=== PATIENT | female | born 2000 | race Caucasian/White ===

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

== ENCOUNTER 2021-04-13 09:00 | Outpatient (RCR) | payer BC, SELFPAY ==
[2020-09-12 14:26] VITALS: BMI 32.0
--- NOTE | 2020-10-05 12:20 | HP.PTEVAL_ITS ---
Patient's Visit Information FABIAN MENJIVAR is a 20 year old F referred to Physical Therapy by MILTON ORDONEZ with a diagnosis of Right ACL and Meniscal Repair. Date of Evaluation: 10/05/20 Physical Therapist: Priyanka Key DPT - Visit Plan Frequency: 3x /Week Duration: 4 Weeks Plan: ACL and meniscal repair 10/02/2020. HEP Given IE: seated heel slide, quad set and weight shift - Subjective Torn September 02 senior night- lax- non contact- Right ACL and meniscal tear. Surgery was 10/02/2020- she is weight bearing as tolerated at this point but is still on crutches. She is wearing a TROM brace that is locked in extension. MD did not want a brace on her leg but pt wanted one. She has pain on the medial and lateral aspect. Worst: 11/04 Today: 09/04 Best: 07/05 Agg: moving Eases: resting- ice 20 min on/10 min off all day. Describes the pain as throbbing and sinking nails into her knee. No radiating pain- Does have N/T in the toes- they are driving her crazy. Wants to get back to work- standing for the entire day- would like to go back if possible. Very active person. Prior to surgery fully I with ADL's- graduated from [employer]- plans to go to [employer] to play lax- Spring sport at [employer]. Surgery Dr. Gutierrez at which is the team MD with - heads up Mid November. Sleep: no problems- but does wake up and night- sleeps in brace PMHx: left ACL 2017, celiac disease, hiatal hernia. Meds: escitalopf, dicyclomine - Objective Posture: FH, RS- can correct but is unable to maintain. Gait: antalgic- decreased weight through the right LE with axillary crutches. Stairs: asc/desc 8 non recip. SLS: is able to weight shift but very hesitant. HR/TR: able with weight shifted to the left LE. Transfers: requires mod A for all transfers from supine to sit and sit to supine. ROM: 0-40 degrees- very anxious and reports pain/discomfort with flexion. Strength: not tested due to fear- will attempt next visit- quad set is visible but faint. Girth: Patella: 41 cm, 6 above: 56.5cm, 6 below: 34.5 cm. Sensation: normal to gross touch bilateral. Observation: mom attempted to remove steri strips-PT replaced them in clinic-. Fabian was very nervous and anxious and cried throughout the session- father present - Goals Goal 1:: Patient will be I with HEP and progression Goal Time Frame: 12-16 Weeks Goal 2:: Patient will demo equal girth 6 above patella to non op LE Goal Time Frame: 12-16 Weeks Goal 3:: Patient will ambulate >300 feet with a normalized gait pattern Goal Time Frame: 12-16 Weeks Goal 4:: Patient will demo 0-130 degrees of ROM in the right knee Goal Time Frame: 12-16 Weeks - Rehabilitation Potential Physical Therapy Diagnosis: Patient presents with hypomobility- she has decreased ROM, strength, proprioception, flex and muscular endurance leading to abnormal gait pattern and decreased ability to perform ADL's. Rehabilitation Potential: Fair - Anticipated Interventions Patient/Client Instruction: Educate patient on: Benefits of Fitness Program Therapeutic Exercise to Include: Strength training, Endurance training, Balance training, Coordination, Agility training, Body mechanics, Postural training, Flexibilty training, Gait and locomotor training, Neuromotor development, Passive ROM, Active ROM, Dynamic Lumbar Stabilization, Scapular Strength/Stabilization Functional Training to Include: Gait training Manual Therapy Techniques to Include: Soft tissue mobilization TENS: Yes Cryotherapy (ice pack, ice massage): Yes Thermo therapy (hot pack): Yes Ultrasound (thermal/non thermal): No Pelvic traction supine: Yes Thank you for the opportunity to evaluate your patient. For Medicare and Medicare HMO plans, please review the plan of care and approve it. It will need to be FAXED BACK to us at [phone] for Medicare purposes. For Medicare only, by signing this I certify the plan of care. Please let me know if there are questions or concerns regarding this plan of care. Physician Signature: Date:
--- NOTE | 2020-11-20 12:56 | HP.PTREVAL ---
MILTON ORDONEZ, It has been my pleasure to treat FABIAN MENJIVAR over the last 16 visits for Right ACL and Meniscal Repair. Please see the progress note below for an update on the physical therapy plan of care! Subjective: Pt. reports no new issues. She walks in without AD, she still has marked lack of TKE during stance phase of gait. She reports being HEP compliant with stretching at home. Objective/Function: PROM: PRE TREATMENT: 0-6-105, post stretchin-2-110deg. Pt. is still limited with end range extension and flexion. She has tightness and posterior knee pain with end range extension. Her extension does improve with stretching, but does not achieve full TKE. Pt. is completing strengthening exercises well without limitations. I would like her to achieve TKE to allow for improved gait pattern. She tolerated stretching with PT over pressure, but difficulty completing on own. P. may benefit from dynamic splinting to increase prolonged stretch. Due to her lack on TKE her gait is altered effecting her functional mobility. Plan Plan: COnt. to work on ROM and strength. Focus on TKE and increasing knee flexion. Goals Goal 1:: Patient will be I with HEP and progression Goal Time Frame: 12-16 Weeks Goal Progress: Progressing Goal 2:: Patient will demo equal girth 6 above patella to non op LE Goal Time Frame: 12-16 Weeks Goal Progress: Progressing Goal 3:: Patient will ambulate >300 feet with a normalized gait pattern Goal Time Frame: 12-16 Weeks Goal Progress: Progressing Goal 4:: Patient will demo 0-130 degrees of ROM in the right knee Goal Time Frame: 12-16 Weeks Goal Progress: Progressing Anticipated Interventions Patient/Client Instruction: Educate patient on: Benefits of Fitness Program Therapeutic Exercise to Include: Strength training, Endurance training, Balance training, Coordination, Agility training, Body mechanics, Postural training, Flexibilty training, Gait and locomotor training, Neuromotor development, Passive ROM, Active ROM, Dynamic Lumbar Stabilization, Scapular Strength/Stabilization Functional Training to Include: Gait training Manual Therapy Techniques to Include: Soft tissue mobilization TENS: Yes Cryotherapy (ice pack, ice massage): Yes Thermo therapy (hot pack): Yes Ultrasound (thermal/non thermal): No Pelvic traction supine: Yes Please do not hesitate to contact me at [phone] by phone or if you have questions or concerns regarding this new plan of care! Sincerely, HAWK RomeroT
--- NOTE | 2020-12-07 11:24 | HP.PTREVAL_ITS ---
MILTON ORDONEZ, It has been my pleasure to treat FABIAN MENJIVAR over the last 22 visits for Right ACL and Meniscal Repair. Please see the progress note below for an update on the physical therapy plan of care! Subjective: Patient reports today is her last day before she goes to school. 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 Her hips/buttocks are sore from last session. Has to stand to shake lemonades all night Objective/Function: ROM: 0-130 *prone with stretch strap. Girth: Patella: 39cm 6 above:56.5. Strength: Flexion: Left: 51,50 Right: 32, 30 11 Extension: Left: 59,61 Right:38, 40 Plan Plan: 12/07/20: Hold- going to college- will return on breaks for re-assessments- encouraged to call if questions. COnt. to work on ROM and strength. Focus on TKE and increasing knee flexion. Balance/Gait/Functional tests - Balance/Special Test Scores Lower Extremity Functional Score: 53 Goals Goal 1:: Patient will be I with HEP and progression Goal Time Frame: 12-16 Weeks Goal Progress: Goal Met Goal 2:: Patient will demo equal girth 6 above patella to non op LE Goal Time Frame: 12-16 Weeks Goal Progress: Progressing Goal 3:: Patient will ambulate >300 feet with a normalized gait pattern Goal Time Frame: 12-16 Weeks Goal Progress: Goal Met Goal 4:: Patient will demo 0-130 degrees of ROM in the right knee Goal Time Frame: 12-16 Weeks Goal Progress: Goal Met Anticipated Interventions Patient/Client Instruction: Educate patient on: Benefits of Fitness Program Therapeutic Exercise to Include: Strength training, Endurance training, Balance training, Coordination, Agility training, Body mechanics, Postural training, Flexibilty training, Gait and locomotor training, Neuromotor development, Passive ROM, Active ROM, Dynamic Lumbar Stabilization, Scapular Strength/Stab ilization Functional Training to Include: Gait training Manual Therapy Techniques to Include: Soft tissue mobilization TENS: Yes Cryotherapy (ice pack, ice massage): Yes Thermo therapy (hot pack): Yes Ultrasound (thermal/non thermal): No Pelvic traction supine: Yes Please do not hesitate to contact me at [phone] by phone or if you have questions or concerns regarding this new plan of care! Sincerely, HAWK SuárezT
--- NOTE | 2021-04-09 10:02 | HP.PTREVAL ---
MILTON ORDONEZ, It has been my pleasure to treat FABIAN MENJIVAR over the last 23 visits for Right ACL and Meniscal Repair. Please see the progress note below for an update on the physical therapy plan of care! Subjective: Pt. is back from school. She has been doing rehab at school without issues. Pt. is having some anterior knee pain with running. She is running/jog/walk upto 10 minutes. Pain the next day. Objective/Function: ROM: R kne: 0-0-140deg. MMT: RLE: knee: ext: 53.9#, flexion 41.1#; hip: flexion 42.3#, ext 84.1#, abd 71.5#. LLE: knee: ext 55.3#, flexion 44.3#; hip: flexion 44.1#, ext 66.1#, abd 75.2#. squat: Pt. has slight valgus posture, with increased lateral wt. shift to L side. She is able to correct with VC/TCing. jogging: Pt. has a slightly antalgic running pattern during R stance phase. She C/O increased patellar like pain, deep soreness.. Star excursion: fwrd- 1.5in difference, 6 inch difference laterally, across 7 inch difference. Pt. has tenderness at patellar tendon on R side. Plan Plan: Pt. to be seen x2-3 per week while here in town. Focus on SL stability, strength. She appears to have some patellar tendonitis. She has some anterior knee pain with eccentric lowering, absorbing landing with jumping. Balance/Gait/Functional tests - Balance/Special Test Scores Lower Extremity Functional Score: 53 Goals Goal 1:: Patient will be I with HEP and progression Goal Time Frame: 12-16 Weeks Goal Progress: Goal Met Goal 2:: Patient will demo equal girth 6 above patella to non op LE Goal Time Frame: 12-16 Weeks Goal Progress: Goal Met Goal 3:: Patient will ambulate >300 feet with a normalized gait pattern Goal Time Frame: 12-16 Weeks Goal Progress: Goal Met Goal 4:: Patient will demo 0-130 degrees of ROM in the right knee Goal Time Frame: 12-16 Weeks Goal Progress: Goal Met Goal 5:: LTG: Pt. to run without increase in symptoms with normal pattern. Goal Progress: Progressing Goal 6:: LTG: pt. to have normal squat mechanics without increase in R knee pain Goal Progress: Progressing Anticipated Interventions Patient/Client Instruction: Educate patient on: Benefits of Fitness Program Therapeutic Exercise to Include: Strength training, Endurance training, Balance training, Coordination, Agility training, Body mechanics, Postural training, Flexibilty training, Gait and locomotor training, Neuromotor development, Passive ROM, Active ROM, Dynamic Lumbar Stabilization, Scapular Strength/Stabilization Functional Training to Include: Gait training Manual Therapy Techniques to Include: Soft tissue mobilization TENS: Yes Cryotherapy (ice pack, ice massage): Yes Thermo therapy (hot pack): Yes Ultrasound (thermal/non thermal): No Pelvic traction supine: Yes Please do not hesitate to contact me at [phone] by phone or if you have questions or concerns regarding this new plan of care! Sincerely, HAWK RomeroT
--- NOTE | 2021-06-06 13:20 | HP.PT.NRP ---
FABIAN MENJIVAR was seen in my office for initial evaluation on 10/05/20. The following Plan of Care was established for this patient: Initial Frequency: 3x /Week Initial Duration: 4 Weeks Patient/Client Instruction: Educate patient on: Benefits of Fitness Program Therapeutic Exercise to Include: Strength training, Endurance training, Balance training, Coordination, Agility training, Body mechanics, Postural training, Flexibilty training, Gait and locomotor training, Neuromotor development, Passive ROM, Active ROM, Dynamic Lumbar Stabilization, Scapular Strength/Stabilization Functional Training to Include: Gait training Manual Therapy Techniques to Include: Soft tissue mobilization TENS: Yes Cryotherapy (ice pack, ice massage): Yes Thermo therapy (hot pack): Yes Ultrasound (thermal/non thermal): No Pelvic traction supine: Yes This patient was last seen in our office . Pertinent comments regarding their Physical therapy will appear below: Patient is appropriate to be d/c and return to MD for further evaluation At this point I will be discontinuing this patient from physical therapy. I would be happy to see this patient again in the future if found appropriate by the physician. Thank you! Priyanka Key, ALPES[facility] Balance/Gait/Functional tests - Balance/Special Test Scores Lower Extremity Functional Score: 53
== END 2021-04-13 19:00 | disposition home or self-care (01) ==
LOC: PT 09:00
PROVIDERS: PCP Pediatrics; Visit Provider Physician Assistant
DX: S83.511D Sprain of anterior cruciate ligament of right knee, subsequent encounter (principal)
CPT/HCPCS: 97016; 97110; 97116; 97162; 97164

== ENCOUNTER 2022-11-27 10:40 | Emergency (ER) | payer BC, SELFPAY ==
[2022-11-27 10:41] VITALS: BP 156/101; PULSE 109; RESP 16; TEMP 36.4; O2SAT 100; BMI 32.9
[2022-11-27 12:00] VITALS: RESP 18
[2022-11-27 12:26] LABS: Bacteria 0 SEEN /hpf (None Seen); Color, Urine Yellow (Yellow); Glucose, Dipstick Normal (Normal); Ketone-Dipstick Negative (Negative); Leukocyte Esterase-Dipstick 25 /ul (Negative); Mucous, Urine 0 SEEN /hpf (<or=2+); Nitrite-Dipstick Negative (Negative); Occult Blood-Urine Negative /ul (Negative); Protein-Dipstick Negative (Negative); Red Blood Cells-Urine 0 SEEN /hpf (0-5); Urine Bilirubin Dipstick Negative (Negative); Urine Clarity Clear (Clear); Urine Urobilinogen Normal (Normal); Urine pH 6.5 (5.0 - 8.0)
[2022-11-27 12:28] LABS: Absolute Lymphocyte Count 2.35 X10^3/uL (0.83-4.51); Absolute Neutrophil Count 7.4 X10^3/uL (2.0-7.7); Basophil# 0.07 X10^3/uL; Basophil% 0.7 % (0-1); Eosinophil# 0.09 X10^3/uL; Eosinophils% 0.9 % (0-5); Hematocrit 38.9 % (37-47); Lymphocyte # 2.35 X10^3/ul (0.83-4.51); Lymphocyte % 22.3 % (19-41); Mean Corp Hgb Conc 33.4 g/dL (32-36); Mean Corpuscular Hgb 30.4 pg (27.0-32.0); Mean Corpuscular Volume 90.9 fL (81-99); Monocyte# 0.61 X10^3/uL; Monocyte% 5.8 % (0-10); NRBC Flagged by Analyzer 0 % (0-5); Platelet Count 418 K/mm3 (150-450); RBC Distribution Width CV 12.8 % (11.6-14.6); RBC Distribution Width SD 41.7 fl (35.1-43.9); Red Blood Count 4.28 M/mm3 (4.2-5.4); White Blood Count 10.6 K/mm3 (4.4-11.0)
[2022-11-27 12:37] LABS: Squamous Epithelial Cells - UA 0-5 SEEN /hpf (5-10); White Blood Cells 0-5 SEEN /hpf (0-5)
[2022-11-27 12:39] LABS: ALB/GLOB Ratio 0.9 RATIO (0.9-2.4); AST(SGOT) 15 U/L (15-37); Alanine Aminotransfer ALT/SGPT 23 U/L (13-56); Albumin, Serum 3.7 g/dL (3.2-5.0); Alkaline Phosphatase 31 U/L (45-117); Anion Gap 6 (5-15); BUN 7 mg/dL (7-18); Calcium,Total 9.6 mg/dL (8.5-10.1); Chloride 108 mmol/L (98-107); EST Glomerular Filtration Rate 112 mL/min (>60); Est Glom Filt Rate - Afr Amer 136 mL/min (>60); Estimated Creatinine Clearance 100.55 ml/min; Globulin 4.3 g/dL (2.2-4.2); Glucose 86 mg/dL (74-106); Potassium 4.3 mmol/L (3.5-5.1); Sodium Level 139 mmol/L (136-145)
[2022-11-27 12:47] LABS: Internal QC Validated? YES +Cl - CLEAR BKGD; Pregnancy, Serum, hCG Quali. NEGATIVE Negative
[2022-11-27 12:55] LABS: Alcohol, Blood (Medical)-Serum < 3.0 mg/dL
[2022-11-27 13:00] VITALS: RESP 18
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
[2022-11-27 13:32] LABS: Amphetamine Urine VISTA NEGATIVE (<1000 ng/mL); Barbiturate Urine VISTA NEGATIVE (< 200 ng/mL); Benzodiazepine Urine VISTA NEGATIVE (< 200 ng/mL); Cocaine Urine VISTA NEGATIVE (< 300 ng/mL); Ecstacy Urine VISTA NEGATIVE (< 500 ng/mL); Methadone Urine VISTA NEGATIVE (< 300 ng/mL); PCP Urine VISTA NEGATIVE (< 25 ng/mL); THC Urine VISTA POSITIVE (< 50 ng/mL); Vista UDS pH Range 6
--- NOTE | 2022-11-27 13:59 | EX.ED.VIS.PS ---
HPI HPI - Psych History of Present Illness Chief Complaint: Suicidal Informant: patient Onset/Context/Timing Onset: Weeks (2-3) Context: Gradual Onset Timing: Waxes and wanes Worsened by: - (Stress) Relieved by: Nothing Associated Symptoms Associated Symptoms - Psych: Positive for Depressed; Negative for Suicidal Thoughts Narrative Narrative: Patient presents with depression and suicidal thoughts that have been getting worse over the past 2 to 3 weeks. Patient states she is under a lot of stress with starting back to school and trying to find a job. Patient states that she feels as though she would just be better off . Patient denies any definite plan for suicide. Patient states her symptoms have gradually gotten worse over the past 2 to 3 weeks. Patient admits to some nausea and vomiting. Patient denies any fevers or chills. Patient denies any chest pain or shortness of breath. [facility] Medical History Anxiety and depression Brain surgery within last 3 months Celiac disease Home Medications drospirenone 3 mg-ethinyl estradiol 0.02 mg tablet (Kristal (28)) 1 tab PO DAILY 09/02/20 [History Last Taken Unknown] dicyclomine 10 mg capsule 10 mg PO DAILY PRN celiac 09/05/20 [History Last Taken Unknown] aripiprazole 5 mg tablet mg PO DAILY 11/27/22 [History Last Taken Unknown] escitalopram oxalate 10 mg tablet (Lexapro) 10 mg PO DAILY 11/27/22 [History Last Taken Unknown] fluoxetine 10 mg capsule mg PO DAILY 11/27/22 [History Last Taken Unknown] Allergy/AdvReac Type Severity Reaction Status Date / Time No Known Allergies Allergy Verified 11/27/22 10:43 Social History Smoking Status: Never smoker ROS ROS ED Constitutional Constitutional ED: Denies chills or fever(s) Eyes Eyes: Denies blurry vision or change in vision ENT ENT ED: Denies rhinorrhea or sore throat Cardiovascular Cardiovascular: Denies chest pain or palpitations Respiratory/Chest Respiratory/Chest: Denies cough or dyspnea Gastrointestinal Gastrointestinal: Reports nausea and vomiting Genitourinary Genitourinary ED: Denies dysuria or hematuria Musculoskeletal Musculoskeletal: Denies back pain or neck pain Integumentary Denies abscess or rash Neurologic Neurologic: Denies headache(s) or weakness Psychiatric Psychiatric: Reports depression Allergic/Immunologic Allergic/Immunologic ED: Denies mouth swelling or urticaria EXAM Physical Exam Const Vital Signs: 11/27/22 10:41 11/27/22 12:00 11/27/22 13:00 Temperature 97.5 F L Temperature Source Temporal Pulse Rate 109 H Respiratory Rate 16 18 18 Blood Pressure 156/101 H Blood Pressure Mean 119 Pulse Ox 100 Oxygen Delivery Method Room Air Positive well nourished and well developed General Appearance ED: well developed and NAD HEENT Reports moist mucous membranes Neck supple and no JVD Resp normal respiratory effort and clear to auscultation bilaterally Cardio regular rate, regular rhythm and no murmurs GI normal to inspection, nondistended, normoactive bowel sounds and non-tender Palpation: soft Extremity normal to inspection General Extremety ED: Negative for edema or tenderness General Extremity: Negative for edema Neuro oriented x3, CN's II-XII intact bilaterally and no sensory deficits noted Sensorium / Orientation: alert Motor Exam: strength 5/5 throughout Psych mental status grossly normal Attitude: calm Activity / Motor Behavior: appropriate eye contact Mood & Affect: depressed Thought Content: No suicidality and No homicidality Attention / Concentration: attention grossly intact Skin no rashes or lesions noted MDM MDM MDM Narrative Medical decision making narrative: Differential diagnosis includes depression, anxiety, and stress. Medical screening labs will be obtained. CBC will be obtained to assess for leukocytosis and anemia. Comprehensive metabolic profile will be obtained to assess for electrolyte abnormality, renal function, and hepatic function. Serum hCG will be obtained to assess for . Urinalysis will be obtained to assess for urinary tract infection. Serum alcohol level will be obtained to assess for alcohol intoxication. Urine tox screen will be obtained to assess for drug abuse. Lab Data Attestation: I reviewed the patient's lab results. Lab results narrative: CBC was reviewed and was within normal limits. Comprehensive metabolic profile was reviewed and was normal. Serum hCG was reviewed and was negative. Urinalysis was reviewed. There is no evidence of urinary tract infection or hematuria. Urine tox screen was reviewed and was positive for cannabinoids. Serum alcohol level was reviewed and was negative. Labs: Laboratory Results - last 24 hr 11/27/22 11/27/22 11/27/22 10:00 11:04 12:14 WBC 10.6 RBC 4.28 Hgb 13.0 Hct 38.9 MCV 90.9 MCH 30.4 MCHC 33.4 RDW Std Deviation 41.7 RDW Coeff of Tree 12.8 Plt Count 418 MPV 9.0 Immature Gran % (Auto) 0.300 Neut % (Auto) 70.0 Lymph % (Auto) 22.3 [place] % (Auto) 5.8 Eos % (Auto) 0.9 Baso % (Auto) 0.7 Absolute Neuts (auto) 7.4 Absolute Lymphs (auto) 2.35 Nucleated RBC % 0 Sodium 139 Potassium 4.3 Chloride 108 H Carbon Dioxide 25.0 Anion Gap 6 BUN 7 Creatinine 0.70 Estim Creat Clear Calc 100.55 Est GFR (MDRD) Af Amer 136 Est GFR (MDRD) Non-Af 112 BUN/Creatinine Ratio 10.0 Glucose 86 Calcium 9.6 Total Bilirubin 0.30 AST 15 ALT 23 Alkaline Phosphatase 31 L Total Protein 8.0 Albumin 3.7 Globulin 4.3 H Albumin/Globulin Ratio 0.9 Serum , Qual NEGATIVE Urine Color Yellow Urine Clarity Clear Urine pH 6.5 Ur Specific [place] 1.010 Urine Protein Negative Urine Glucose (UA) Normal Urine Ketones Negative Urine Occult Blood Negative Urine Nitrite Negative Urine Bilirubin Negative Urine Urobilinogen Normal Ur Leukocyte Esterase 25 H Urine RBC 0 SEEN Urine WBC 0-5 SEEN Ur Squamous Epith Cells 0-5 SEEN Urine Bacteria 0 SEEN Urine Mucus 0 SEEN Urine Opiates Screen NEGATIVE Urine Methadone Screen NEGATIVE Ur Barbiturates Screen NEGATIVE Ur Phencyclidine Scrn NEGATIVE Ur Amphetamines Screen NEGATIVE MDMA (Ecstasy) Screen NEGATIVE U Benzodiazepines Scrn NEGATIVE Urine Cocaine Screen NEGATIVE U Cannabinoids Screen POSITIVE H Ur Drug Screen Comment Ethyl Alcohol < 3.0 Management Discussion w/another healthcare provider: fat pressroom worker/Case management Treatment and Re-Evaluation Narrative: Patient was advised of her findings. Patient was seen by social services counselor. fat pressroom worker was able to arrange for close outpatient follow-up. Patient is agreeable with this plan. I am agreeable with the plan. Patient was instructed to follow-up in 2 to 3 days. Patient was instructed return if worse in any way. Patient and family understood and were agreeable with the plan. All questions were answered. Discharge Plan Triage Chief Complaint: Suicidal ED Provider: Power Mejias Dx/Rx/DC Orders Clinical Impression: Depression Instructions: CONTRACT, No Harm, ED Depression Prescriptions: No Action dicyclomine 10 mg capsule 10 mg PO DAILY PRN (Reason: celiac) drospirenone-ethinyl estradiol [Kristal (28)] 3-0.02 mg Tablet 1 tab PO DAILY aripiprazole 5 mg tablet PO DAILY Patient Comments: TAKE 1 TABLET BY MOUTH ONCE DAILY fluoxetine 10 mg capsule PO DAILY Patient Comments: TAKE 1 CAPSULE BY MOUTH ONCE DAILY FOR 7 DAYS, THEN 2 CAPS ONCE DAILY escitalopram oxalate [Lexapro] 10 mg tablet 10 mg PO DAILY Primary Care Provider: Dionte Fu Referrals: Dionte Fu MD [Primary Care Provider] - 5-7 Days Disposition Disposition: Home, Self Care
[2022-11-27 14:19] VITALS: BP 116/74; PULSE 74; RESP 16; O2SAT 99
--- NOTE | 2022-11-28 17:56 | CM.ED ---
Social Work SW made two attempts to contact patient to follow up regarding patient's safety plan completed in the ED the day before, however, there was no answer. Patient's VM box is full so SW unable to leave VM. Shelly Lancaster MSW, IAM
== END 2022-11-27 14:19 | disposition home or self-care (01) ==
PROVIDERS: Emergency Provider Emergency Medicine; PCP Pediatrics; Visit Provider Emergency Medicine
DX: F32.A Depression, unspecified (principal); Z79.3 Long term (current) use of hormonal contraceptives; K90.0 Celiac disease; F41.8 Other specified anxiety disorders
CPT/HCPCS: 36415; 80053; 80307; 81001; 82077; 84703; 85025; 99283

== ENCOUNTER 2025-04-21 19:07 | Emergency (ER) | payer BC, SELFPAY ==
[2025-04-21 19:08] VITALS: BP 131/79; PULSE 123; RESP 16; TEMP 36.3; O2SAT 100; BMI 36.8
--- NOTE | 2025-04-21 19:17 | EKG12_ITS ---
Test Reason : DYSRHYTHMIA Blood Pressure : */* mmHG Vent. Rate : 112 BPM Atrial Rate : 112 BPM P-R Int : 152 ms QRS Dur : 82 ms QT Int : 330 ms P-R-T Axes : 35 73 17 degrees QTcB Int : 450 ms Sinus tachycardia Possible Inferior infarct , age undetermined Abnormal ECG Confirmed by Sanya Lopez ([id number]), photography editor JASMYNE MCKEON ([id number]) on 04/22/2025 8:25:13 AM Referred By: Confirmed By: Sanya Lopez
[2025-04-21] MEDS: 0.9% Normal Saline (1000mL) 1,000 ML 1000 ML IV (19:37)
[2025-04-21 19:48] LABS: Mucous, Urine 0 SEEN /hpf (<or=2+)
--- OUTSIDE RECORDS SUMMARY | 2025-04-21 19:50 | XMS RPT_ITS | CCD ---
Author Organization [facility] Care Team Providers Care Home Organizer Name Role Phone Shirley Lottie N Unavailable Watson, Lottie N Unavailable Niru Alvarado Unavailable Watson, Lottie N Unavailable Watson, Lottie N Unavailable Watson, Lottie N Unavailable Shirley, Lottie N Unavailable Niru Alvarado Unavailable Shekhar [place] N Unavailable Shirley Lottie N Unavailable Shirley, Lottie N Unavailable Dionte Fu MD Primary Care Provider Dionte Fu MD Primary Care Provider Dionte Fu MD Primary Care Provider Lv Hernandez DO Unavailable [phone] Frankie RN, Kalie Unavailable Unavailable Frankie RN, Kalie Unavailable Unavailable Power Mejias Attending Unavailable Dionte Fu Primary Care Unavailable Frankie RN, Kalie Unavailable Unavailable Dionte Fu MD Primary Care Provider JAIDA CHANG Referring Unavailable DIONTE FU Primary Care Unavailable DIONTE FU Primary Care Unavailable Dionte Fu MD Primary Care Provider DIONTE FU Referring Unavailable DIONTE FU Primary Care Unavailable TAMI PASTOR Attending Unavailable DIONTE FU Primary Care Unavailable TAMI PASTOR Attending Unavailable DIONTE FU Primary Care Unavailable TAMI PASTOR Referring Unavailable TAMI PASTOR Attending Unavailable TAMI PASTOR Attending Unavailable TAMI PASTOR Referring Unavailable MARLIN DAVIS Attending Unavailable TAMI PASTOR Referring Unavailable DIONTE FU Primary Care Unavailable DIONTE FU Primary Care Unavailable Braulio Troncoso MD Primary Care Provider Marry [employer]IAN.Kinga LEE Unavailable KANG BUENROSTRO Attending Unavailable RAJDAMIONRU, KANG J Referring Unavailable RAJDAMIONRU, KANG J Attending Unavailable REGGIE, KANG J Referring Unavailable BRAULIO TRONCOSO H Attending Unavailable HALLE RIOS Referring Unavailable SKYE, QIANA Primary Care Unavailable SAUL KNOX Referring Unavailable BRAULIO TRONCOSO H Primary Care Unavailable ALVARO MAGANA Attending Unavailable SAUL KNOX Referring Unavailable BRAULIO TRONCOSO H Primary Care Unavailable REGGIE KANG J Attending Unavailable RAJGUFOUZIA, KANG J Referring Unavailable SKYE, QIANA Primary Care Unavailable ELIGIO DIEZ Attending Unavailable DIONTE FU Primary Care Unavailable KANG BUENROSTRO J Attending Unavailable RAJGUFOUZIA, KANG J Referring Unavailable SKYE, QIANA Primary Care Unavailable PATTI POON Attending Unavailable BRAULIO TRONCOSO H Primary Care Unavailable JAKE ARIAS Attending Unavailable ELIGIO DIEZ Attending Unavailable ALISEGUFOUZIA, KANG J Attending Unavailable RAJGURU, KANG J Referring Unavailable RAJGURU, KANG J Attending Unavailable RAJGURU, KANG J Referring Unavailable RAJGURU, KANG J Attending Unavailable RAJGURU, KANG J Referring Unavailable JAKE ARIAS Referring Unavailable DIONTE FU Primary Care Unavailable DIONTE FU Attending Unavailable DIONTE FU Primary Care Unavailable REGGIE, KANG J Attending Unavailable ALISEGURU, KANG J Referring Unavailable DIONTE FU Primary Care Unavailable Medications Current Medications Medication Drug Class(es) Dates Sig (Normalized) Sig (Original) brexpiprazole 1 mg oral tablet (7 sources) Atypical Antipsychotic Start: 06-04-2024 End: 07-07-2024 take 1 tablet by mouth once daily brexpiprazole (REXULTI) 1 mg tablet Indications: Borderline personality disorder (HCC) , Severe episode of recurrent major depressive disorder, without psychotic features (HCC) Take 1 tablet by mouth once daily. 30 tablet 06/04/2024 07/07/2024 Discontinued (Side Effects) chlorhexidine gluconate 40 mg/ml medicated liquid soap (1 source) Start: 10-09-2022 End: 10-19-2022 chlorhexidine (HIBICLENS) 4 % external liquid Wash the bilateral axilla once daily for 10 days 0 10/09/2022 10/19/2022 Active Comment on above: Wash the bilateral a xilla once daily for 10 days clonazePAM 0.5 mg disintegrating oral tablet (20 sources) Benzodiazepine Start: 01-09-2024 End: 01-16-2025 clonazePAM orally disintegrating (KLONOPIN WAFER) 0.5 mg disintegrating tablet Indications: Focal epilepsy with impairment of consciousness, intractable (HCC) PLACE 1 TABLET ON TONGUE NEEDED FOR AURAS. DO NOT TAKE MORE THAN 2 TABLETS IN 24 HOURS 10 tablet 12/17/2024 01/16/2025 Active dicyclomine hydrochloride 10 mg oral capsule (20 sources) Anticholinergic Start: 08-26-2022 End: 11-15-2024 take 1 capsule by mouth at bedtime as needed dicyclomine (BENTYL) 10 mg capsule Indications: Altered bowel function TAKE 1 CAPSULE BY MOUTH BEFORE DINNER. MAY REPEAT AT BEDTIME NEEDED. 90 capsule 3 11/16/2024 Active Start: 04-08-2022 End: 07-25-2022 dicyclomine (BENTYL) 10 mg c apsule Indications: Altered bowel function Take one before dinner. May repeat at bedtime, as needed. 90 capsule 0 07/25/2022 Active Start: 08-10-2021 End: 04-05-2022 dicyclomine (BENTYL) 10 mg c apsule Indications: Altered bowel function Take one before dinner. May repeat at bedtime, as needed. 90 capsule 08/10/2021 04/05/2022 Discontinued Start: 07-05-2020 End: 08-08-2021 dicyclomine (BENTYL) 10 mg c apsule Indications: Altered bowel function Take one before dinner. May repeat at bedtime, as needed. 90 capsule 0 12/19/2020 08/08/2021 Discontinued Comment on above: Take one before dinn er. May repeat at bedtime, as needed. TAKE 1 CAPSULE BY MO UTH BEFORE DINNER. MAY REPEAT AT BEDTIME NEEDED. docusate sodium 50 mg / sennosides, retirement 8.6 mg oral tablet (4 sources) Start: 10-28-2022 End: 11-27-2022 take 1 tablet by mouth once daily senna-docusate (SENNA-S) 8.6-50 mg per tablet Take 1 tablet by mouth once daily. 30 tablet 0 10/28/2022 11/27/2022 Active Comment on above: Take 1 tablet by mary alice th once daily. drospirenone / Ethinyl Estradiol (20 sources) Progestin, Estrogen Start: 04-26-2024 take 1 tablet by mouth once daily Drospirenone-Ethiny l Estradiol (LORYNA, 28,) 3-0.02 mg per tablet Take 1 tablet by mouth once daily. 90 tablet 3 04/26/2024 Active Start: 02-16-2024 End: 04-26-2024 take 1 tablet by mouth once daily Drospirenone-Ethinyl Estradiol (LORYNA, 28,) 3-0.02 mg per tablet Take 1 tablet by mouth once daily. 90 tablet 3 02/16/2024 04/26/2024 Discontinued Start: 02-16-2024 take 1 tablet by mary alice th once daily Drospirenone-Ethinyl Estradiol (LORYNA, 28,) 3-0.02 mg per tablet Take 1 tablet by mouth once daily. 90 tablet 3 02/16/2024 Active Start: 01-14-2024 End: 02-16-2024 take 1 tablet by mouth once daily Drospirenone-Ethinyl Estradiol (LORYNA, 28,) 3-0.02 mg per tablet Take 1 tablet by mouth once daily. 28 tablet 1 01/14/2024 02/16/2024 Discontinued Start: 01-14-2024 take 1 tablet by mary alice th once daily Drospirenone-Ethinyl Estradiol (LORYNA, 28,) 3-0.02 mg per tablet Take 1 tablet by mouth once daily. 28 tablet 1 01/14/2024 Active Start: 12-10-2023 End: 01-13-2024 take 1 tablet by mouth once daily Drospirenone-Ethinyl Estradiol (LORYNA, 28,) 3-0.02 mg per tablet Take 1 tablet by mouth once daily. 28 tablet 12/10/2023 01/13/2024 Discontinued Start: 12-10-2023 take 1 tablet by mary alice th once daily Drospirenone-Ethinyl Estradiol (LORYNA, 28,) 3-0.02 mg per tablet Take 1 tablet by mouth once daily. 28 tablet 12/10/2023 Active Start: 12-10-2023 take 1 tablet by mary alice th once daily Drospirenone-Ethinyl Estradiol (LORYNA, 28,) 3-0.02 mg per tablet Take 1 tablet by mouth once daily. 28 tablet 0 12/10/2023 Active Start: 12-25-2022 End: 12-09-2023 take 1 tablet by mouth once daily Drospirenone-Ethinyl Estradiol (LORYNA, 28,) 3-0.02 mg per tablet Take 1 tablet by mouth once daily. 28 tablet 11 12/25/2022 12/09/2023 Discontinued Start: 12-25-2022 take 1 tablet by mary alice th once daily Drospirenone-Ethinyl Estradiol (LORYNA, 28,) 3-0.02 mg per tablet Take 1 tablet by mouth once daily. 28 tablet 11 12/25/2022 Active Start: 09-27-2022 End: 12-25-2022 take 1 tablet by mouth once daily Drospirenone-Ethinyl Estradiol (LORYNA, 28,) 3-0.02 mg per tablet Take 1 tablet by mouth once daily. 28 tablet 2 09/27/2022 12/25/2022 Discontinued Start: 09-27-2022 take 1 tablet by mary alice th once daily Drospirenone-Ethinyl Estradiol (LORYNA, 28,) 3-0.02 mg per tablet Take 1 tablet by mouth once daily. 28 tablet 2 09/27/2022 Suspended Start: 09-27-2022 take 1 tablet by mary alice th once daily Drospirenone-Ethinyl Estradiol (LORYNA, 28,) 3-0.02 mg per tablet Take 1 tablet by mouth once daily. 28 tablet 2 09/27/2022 Active Start: 07-18-2022 take 1 tablet by mary alice th once daily Drospirenone-Ethinyl Estradiol (SASCHAYNA, 28,) 3-0.02 mg per tablet Take 1 tablet by mouth once daily. 28 tablet 1 07/18/2022 Active Start: 04-23-2022 take 1 tablet by mary alice th once daily Drospirenone-Ethinyl Estradiol (LUCIANO 28) 3-0.02 mg per tablet Take 1 tablet by mouth once daily. 28 tablet 11 04/23/2022 Active Start: 03-04-2022 End: 04-22-2022 take 1 tablet by mouth once daily Drospirenone-Ethinyl Estradiol (LUCIANO 28) 3-0.02 mg per tablet Take 1 tablet by mouth once daily. 28 tablet 11 03/04/2022 04/22/2022 Discontinued Start: 03-04-2022 take 1 tablet by mary alice th once daily Drospirenone-Ethinyl Estradiol (LUCIANO 28) 3-0.02 mg per tablet Take 1 tablet by mouth once daily. 28 tablet 11 03/04/2022 Active Start: 09-02-2020 End: 03-04-2022 Drospirenone-Ethinyl Estradi ol (LUCIANO 28) 3-0.02 mg per tablet Take by mouth. 0 09/02/2020 03/04/2022 Discontinued Start: 09-02-2020 Drospirenone-E thinyl Estradiol (LUCIANO 28) 3-0.02 mg per tablet Take by mouth. 0 09/02/2020 Active Start: 09-02-2020 Drospirenone-E thinyl Estradiol (Kristal (28)) 3-0.02 mg Tablet Active 1 TABLET PO DAILY September 02, 2020 12:00am Start: 06-29-2020 End: 12-11-2020 take 1 tablet by mouth once daily Steph ALMEIDA 3-0.02 mg per tablet Take 1 tablet by mouth once daily. 1 Package 11 06/29/2020 12/11/2020 Discontinued End: 07-17-2022 take 1 tablet by mouth once daily Drospirenone-Ethinyl Estradiol (SASCHAYNA, 28,) 3-0.02 mg per tablet Take 1 tablet by mouth once daily. 0 07/17/2022 Discontinued take 1 tablet by mary alice th once daily Drospirenone-Ethinyl Estradiol (LORYNA, 28,) 3-0.02 mg per tablet Take 1 tablet by mouth once daily. 0 Active take 1 tablet by mary alice th once daily Drospirenone-Ethinyl Estradiol (LUCIANO 28) 3-0.02 mg per tablet Take 1 tablet by mouth once daily. 0 Suspended Comment on above: Take by mouth. Take 1 tablet by mary alice once daily. folic acid 1 mg oral tablet (20 sources) Start: 01-09-20 End: 11-18-19 take 1 tablet by mouth once daily folic acid 1 mg tablet Indications: Focal epilepsy with impairment of consciousness, intractable (HCC) Take 1 tablet by mouth once daily. 90 tablet 3 11/17/2024 11/17/2025 Active hydrOXYzine hydrochloride 10 mg oral tablet (17 sources) Antihistamine Start: 06-14-19 End: 07-15-19 take 1 tablet by mouth every eight hours as needed hydrOXYzine HCl (ATARAX) 10 mg tablet Take 1 tablet by mouth three times daily as needed. 90 tablet 1 06/14/2022 07/14/2022 Active Start: 03-25-2022 End: 05-18-2022 take 1 tablet by mouth every eight hours as needed hydrOXYzine HCl (ATARAX) 10 mg tablet Take 1 tablet by mouth three times daily as needed. 90 tablet 0 03/25/2022 04/18/2022 Discontinued Comment on above: Take 1 tablet by mary alice three times daily as needed. iv contrast (will be provided with radiology test) (4 sources) Start: 09-17-19 End: 09-18-19 inject 1 dose intravenously once iv contrast (will be provided with radiology test) MRI Brain Inject, intravenously, once for 1 dose.No IV access, insert saline lock prior to beginning of sedation, infusion, injection of imaging exam.Discontinue saline lock post exam. If Pt. has a central line or IVAD, may access for administration according to line specific nursing protocol.Once exam is complete flush line and de-access according to line specific nursing protocol in the MR contrast administration guidelines link 1 Each 0 09/17/2023 09/18/2023 Active Start: 11-20-2022 End: 11-21-2022 inject 1 dose intravenously once iv contrast (will be provided with radiology test) MRI Brain Inject, intravenously, once for 1 dose.No IV access, insert saline lock prior to beginning of sedation, infusion, injection of imaging exam.Discontinue saline lock post exam. If Pt. has a central line or IVAD, may access for administration according to line specific nursing protocol.Once exam is complete flush line and de-access according to line specific nursing protocol in the MR contrast administration guidelines link 1 Each 0 11/20/2022 11/21/2022 Active Start: 02-21-2022 End: 02-22-2022 inject 1 dose intravenously once iv contrast (will be provided with radiology test) Indications: Generalized anxiety disorder , Spells of decreased attentiveness , Near syncope MRI Brain Inject, intravenously, once for 1 dose.No IV access, insert saline lock prior to beginning of sedation, infusion, injection of imaging exam.Discontinue saline lock post exam. If Pt. has a central line or IVAD, may access for administration according to line specific nursing protocol.Once exam is complete flush line and de-access according to line specific nursing protocol in the MR contrast administration guidelines link 1 Each 0 02/21/2022 02/22/2022 Active Comment on above: MRI Brain Inject, in travenously, once for 1 dose.No IV access, insert saline lock prior to beginning of sedation, infusion, injection of imaging exam.Discontinue saline lock post exam. If Pt. has a central line or IVAD, may access for administration according to line specific nursing protocol.Once exam is complete flush line and de-access according to line specific nursing protocol in the MR contrast administration guidelines link lamoTRIgine 100 mg oral tablet (20 sources) Mood Stabilizer, Anti-epileptic Agent Start: 04-30-19 End: 07-22-19 26 take 1 tablet by mouth twice daily lamoTRIgine (LAMICTAL) 100 mg tablet Indications: Focal epilepsy with impairment of consciousness, intractable (HCC) Take 1 tablet by mouth two times a day. 180 tablet 3 10/04/2024 04/02/2025 Active Start: 08-22-2022 End: 02-25-2023 take 1 tablet by mouth once daily at bedtime lamoTRIgine (LAMICTAL) 100 mg tablet Take 1 tablet by mouth daily at bedtime for 7 days, THEN 1 tablet twice daily. Start on week 7 of titration. Week 7 take with 75 mg( 3x25 mg tabs) in the am. Week 8: take 100 mg twice daily and continue this dose thereafter.. 180 tablet 1 08/22/2022 Active Start: 07-04-2022 End: 02-20-2023 take 1 tablet by mouth twice daily lamoTRIgine (LAMICTAL) 25 mg tablet Take 1 tablet by mouth twice daily. Take 25 mg in the AM & 50 mg in the PM starting 08/01/22 and increase per titration schedule to 100 mg twice daily by 09/05/22 406 tablet 0 08/01/2022 10/09/2022 Discontinued Comment on above: Take 1 tablet by mary alice th twice daily. Take 25 mg in the AM & 50 mg in the PM starting 08/01/22 and increase per titration schedule to 100 mg twice daily by 09/05/22 Take 1 tablet by mary alice th twice daily. Follow the titration schedule given in your hospital discharge instructions for a goal dose of 100 mg twice daily by 09/05/22 Take 1 tablet by mary alice th daily at bedtime for 7 days, THEN 1 tablet twice daily. Start on week 7 of titration. Week 7 take with 75 mg( 3x25 mg tabs) in the am. Week 8: take 100 mg twice daily and continue this dose thereafter.. Take 1 tablet by mary alice th two times a day. 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 14 tablet 0 03/18/2022 Active Comment on above: Take 1 tablet by mary alice th twice daily for 7 days. Take 1 tablet by mary alice th twice daily. Take 1 tablet by mary alice twice daily for 14 days. Take 1 tablet by mary alice twice daily lidocaine 0.04 mg/mg medicated patch (2 sources) Antiarrhythmic, Amide Local Anesthetic Start: 3 End: 3 lidocaine (SALONPAS) 4 % patch Apply 2 Patches as directed once daily for 5 days. 10 Patch 0 10/29/2022 11/03/2022 Active Comment on above: Apply 2 Patches as d irected once daily for 5 days. midazolam 50 mg/ml nasal spray (20 sources) Benzodiazepine Start: 3 End: 5 midazolam (NAYZILAM) 5 mg/spray (0.1 mL) nasal spray Indications: 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) Use 1 spray in one nostril as needed for seizures lasting > 5 minutes or >=3 seizures in 8 hours. May repeat dose in alternate nostril after 10 minutes based on response and tolerability. 2 Each 1 04/01/2024 Active Comment on above: Use 1 spray in one n ostril as needed for seizures lasting > 5 minutes or >=3 seizures in 8 hours. May repeat dose in alternate nostril after 10 minutes based on response and tolerability. mupirocin 0.02 mg/mg topical ointment (4 sources) RNA Synthetase Inhibitor Antibacterial Start: 4 End: 4 apply 30 g nasal route three times daily mupirocin (BACTROBAN) 2 % ointment Indications: Impetigo Apply topically to the left nostril TID for 14 days 30 g 1 02/16/2024 03/01/2024 Active Start: 10-24-2022 End: 10-25-2022 mupirocin (BACTROBAN) 2 % oi ntment Apply small amount of ointment to inside of each nostril using cotton swab twice today and once tomorrow morning before surgery 22 g 0 10/24/2022 10/25/2022 Discontinued Comment on above: Apply small amount o f ointment to inside of each nostril using cotton swab twice today and once tomorrow morning before surgery pantoprazole 40 mg delayed release oral tablet (20 sources) Proton Pump Inhibitor Start: End: take 1 tablet by mouth once daily pantoprazole DR (PROTONIX) 40 mg tablet Indications: Gastroesophageal reflux disease without esophagitis Take 1 tablet by mouth once daily. 90 tablet 1 11/16/2024 Active triamcinolone acetonide 0.001 mg/mg oral paste (20 sources) Corticosteroid Start: End: triamcinolone (KENALOG IN ORABASE) 0.1 % paste Indications: Aphthous, ulcer oral Apply to the apthous ulcer TID for 5 days 5 g 1 11/16/2024 Active zolpidem tartrate 5 mg oral tablet (7 sources) gamma-Aminobutyric Acid-ergic Agonist Start: 025 End: take 1 tablet by mouth every 30 days at bedtime as needed for sleep zolpidem (AMBIEN) 5 mg tablet Indications: Insomnia due to mental condition Take 1 tablet by mouth at bedtime as needed (sleep difficulties) for up to 30 days. 30 tablet 12/16/2024 01/15/2025 Active Start: 09-27-2016 End: 09-05-2020 take 5 mg by mouth at bedtime as needed Zolpidem Discontinued 5 MG PO AT BEDTIME NEEDED September 27, 2016 12:00am September 05, 2020 1:09pm Completed/Discontinued Medications Medication Drug Class(es) Dates Sig (Normalized) Sig (Original) acetaminophen 325 mg oral tablet (11 sources) Start: 10-28-2022 End: 02-05-2023 take 2 tablets enteral route every four hours as needed acetaminophen (TYLENOL) 325 mg tablet Take 2 tablets by mouth every 4 hours as needed for pain or fever 60 tablet 0 10/28/2022 02/05/2023 Discontinued (Course of therapy completed) Start: 10-28-2022 take 2 tablets by mo uth every four hours as needed acetaminophen (TYLENOL) 325 mg tablet Take 2 tablets by mouth every 4 hours as needed for pain or fever 60 tablet 0 10/28/2022 Active Comment on above: Take 2 tablets by mo uth every 4 hours as needed for pain or fever acetaminophen 325 mg / oxyCODONE hydrochloride 5 mg oral tablet (1 source) Opioid Agonist Start: 09-28-19 End: 07-03-19 take 1 tablet by mouth every six hours as needed Oxycodone-Acetaminop hen Discontinued 1 - 2 TABLET PO EVERY 6 HOURS NEEDED 60 September 27, 2016 12:00am July 02, 2018 9:05am ARIPiprazole 2 mg oral tablet (20 sources) Atypical Antipsychotic Start: 04-23-20 End: 06-22-19 take 1 tablet by mouth once daily ARIPiprazole (ABILIFY) 2 mg tablet Indications: Severe episode of recurrent major depressive disorder, without psychotic features (HCC) , Borderline personality disorder (HCC) Take 1 tablet by mouth once daily. 30 tablet 1 04/23/2024 06/04/2024 Discontinued (Side Effects) Start: 05-22-2023 End: 01-01-2024 take 1 tablet by mouth once daily ARIPiprazole (ABILIFY) 2 mg tablet Take 1 tablet by mouth once daily. 30 tablet 1 05/22/2023 01/01/2024 Discontinued (Discontinued by Patient) Start: 02-05-2023 End: 03-07-2023 take 1 tablet by mouth once daily ARIPiprazole (ABILIFY) 2 mg tablet Take 1 tablet by mouth once daily. 30 tablet 0 02/05/2023 Active Start: 11-27-2022 take 1 mg by mouth once daily Aripiprazole Active MG PO DAILY November 27, 2022 12:00am Start: 06-14-2022 End: 09-05-2024 take 1 tablet by mouth once daily ARIPiprazole (ABILIFY) 5 mg tablet Take 5 mg by mouth once daily. 11/27/2022 01/01/2024 Discontinued (Discontinued by Patient) Start: 03-25-2022 End: 06-14-2022 take 1 tablet by mouth once daily ARIPiprazole (ABILIFY) 2 mg tablet Take 1 tablet by mouth once daily. 30 tablet 1 03/25/2022 04/18/2022 Discontinued Comment on above: Take 1 tablet by mary alice once daily. Take 2 tablets by mo [facility] daily at bedtime. busPIRone hydrochloride 15 mg oral tablet (20 sources) Start: End: take 1 tablet by mouth twice daily busPIRone (BUSPAR) 15 mg tablet Take 1 tablet by mouth two times a day. 180 tablet 11/08/2024 01/07/2025 Discontinued Start: 07-07-2024 End: 09-05-2024 take 1 tablet by mouth twice daily busPIRone (BUSPAR) 10 mg tablet Take 1 tablet by mouth two times a day. 60 tablet 1 07/07/2024 08/04/2024 Discontinued 24 hr desvenlafaxine succinate 100 mg extended release oral tablet (20 sources) Serotonin and Norepinephrine Reuptake Inhibitor Start: 07-07-2024 End: 03-08-2025 take 1 tablet by mouth once daily desvenlafaxine ER (PRISTIQ) 50 mg 24 hr tablet Take 1 tablet by mouth once daily. Take with 100 mg dose. 30 tablet 1 11/08/2024 01/07/2025 Discontinued Start: 04-23-2024 End: 04-07-2025 take 1 tablet by mouth once daily at breakfast desvenlafaxine ER (PRISTIQ) 100 mg 24 hr tablet Take 1 tablet by mouth daily with breakfast. Take with 50 mg dose. 90 tablet 11/08/2024 01/07/2025 Discontinued Start: 02-19-2024 End: 04-23-2024 take 1 tablet by mouth once daily at breakfast desvenlafaxine ER (PRISTIQ) 25 mg 24 hr tablet Take 1 tablet by mouth daily with breakfast for 7 days. 7 tablet 02/19/2024 04/23/2024 Discontinued (Course of therapy completed) Start: 02-19-2024 End: 05-31-2024 take 1 tablet by mouth once daily at breakfast desvenlafaxine ER (PRISTIQ) 50 mg 24 hr tablet Take 1 tablet by mouth daily with breakfast. 30 tablet 1 04/01/2024 04/23/2024 Discontinued doxycycline hyclate 100 mg oral capsule (3 sources) Tetracycline-class Drug Start: 02-17-2024 End: 02-24-2024 take 1 capsule by mouth twice daily doxycycline hyclate (VIBRAMYCIN) 100 mg capsule Take 1 capsule (100 mg) by mouth two times a day for 7 days. 14 capsule 02/17/2024 02/24/2024 escitalopram 20 mg oral tablet (20 sources) Serotonin Reuptake Inhibitor Start: 08-02-2021 End: 03-25-2022 take 1 tablet by mouth once daily escitalopram oxalate (LEXAPRO) 20 mg tablet Indications: Generalized anxiety disorder Take 1 tablet by mouth once daily 30 tablet 08/02/2021 03/25/2022 Discontinued (Lack of Efficacy) Start: 09-02-2020 End: 01-01-2024 take 1 tablet by mouth once daily escitalopram oxalate (LEXAPRO) 10 mg tablet Take 10 mg by mouth once daily. 11/27/2022 01/01/2024 Discontinued (Discontinued by Patient) Comment on above: Take 1 tablet by mary alice once daily Take by mouth. FLUoxetine 20 mg oral capsule (20 sources) Serotonin Reuptake Inhibitor Start: End: take 1 capsule by mouth once daily FLUoxetine (PROZAC) 20 mg capsule Take 1 capsule by mouth once daily. Take with 40 mg dose. 30 capsule 1 05/22/2023 01/01/2024 Discontinued (Discontinued by Patient) Start: 05-22-2023 End: 01-01-2024 take 1 capsule by mouth once daily FLUoxetine (PROZAC) 40 mg capsule Indications: Generalized anxiety disorder Take 1 capsule by mouth once daily. Take with 20 mg dose. 30 capsule 1 05/22/2023 01/01/2024 Discontinued (Discontinued by Patient) Start: 01-20-2023 End: 03-10-2023 take 1 capsule by mouth once daily FLUoxetine (PROZAC) 40 mg capsule Indications: Generalized anxiety disorder Take 1 capsule by mouth once daily 30 capsule 0 03/10/2023 Active Start: 11-29-2022 take 1 capsule by mo uth once daily FLUoxetine (PROZAC) 40 mg capsule Indications: Generalized anxiety disorder Take 1 capsule by mouth once daily. 30 capsule 1 11/29/2022 Active Start: 11-27-2022 take 1 mg by mouth once daily Fluoxetine Active MG PO DAILY November 27, 2022 12:00am Start: 06-14-2022 End: 11-29-2022 take 1 capsule by mouth once daily, then take 2 capsules by mouth once daily FLUoxetine (PROZAC) 10 mg capsule Take 1 capsule by mouth once daily for 7 days, THEN 2 capsules once daily. 67 capsule 1 06/14/2022 11/29/2022 Discontinued (Dosage adjustment) Comment on above: Take 1 capsule by mo uth once daily for 7 days, THEN 2 capsules once daily. Take 1 capsule by mo ut once daily. Take 1 capsule by mo ut once daily Take 1 capsule by mo ut once daily. Take with 20 mg dose. Take 1 capsule by mo uth once daily. Take with 40 mg dose. 24 hr guanFACINE 1 mg extended release oral tablet (15 sources) Central alpha-2 Adrenergic Agonist Start: 08-05-19 End: 12-24-19 take 1 tablet by mouth once daily at bedtime guanFACINE (INTUNIV) 1 mg ER 24 hr tablet(s) Take 1 tablet by mouth daily at bedtime. 90 tablet 09/24/2024 11/08/2024 Discontinued (Lack of Efficacy) ibuprofen 800 mg oral tablet (8 sources) Nonsteroidal Anti-inflammatory Drug Start: 10-29-19 End: 12-26-19 take 1 tablet by mouth every eight hours as needed ibuprofen (MOTRIN) 800 mg tablet Take 1 tablet by mouth every 8 hours as needed for pain 60 tablet 0 10/28/2022 12/25/2022 Discontinued Comment on above: Take 1 tablet by mary alice every 8 hours as needed for pain methocarbamol 750 mg oral tablet (8 sources) Muscle Relaxant Start: 10-29-19 End: 12-26-19 take 1 tablet enteral route every eight hours as needed methocarbamol (ROBAXIN) 750 mg tablet Take 1 tablet by mouth three times daily as needed for jaw pain 30 tablet 0 10/28/2022 12/25/2022 Discontinued Start: 10-28-2022 take 1 tablet by mary alice th every eight hours as needed methocarbamol (ROBAXIN) 750 mg tablet Take 1 tablet by mouth three times daily as needed for jaw pain 30 tablet 0 10/28/2022 Active Comment on above: Take 1 tablet by mary alice th three times daily as needed for jaw pain metroNIDAZOLE 500 mg oral tablet (2 sources) Nitroimidazole Antimicrobial Start: 11-21-19 24 End: 11-28-19 24 take 1 tablet by mouth twice daily metroNIDAZOLE (FLAGYL) 500 mg tablet Take 1 tablet by mouth two times a day for 7 days. 14 tablet 11/21/2023 11/28/2023 minocycline 100 mg oral capsule (1 source) Tetracycline-class Drug Start: 09-28-19 End: 09-06-19 take 1 tablet by mouth once daily Minocycline Discontinued 1 TABLET PO DAILY September 27, 2016 12:00am September 05, 2020 1:08pm naproxen 500 mg oral tablet (20 sources) Nonsteroidal Anti-inflammatory Drug Start: 10-03-19 End: 10-09-19 22 take 1 tablet by mouth every twelve hours as needed naproxen (NAPROSYN) 500 mg tablet Take 1 tablet by mouth twice daily as needed (for pain). Take with food 14 tablet 10/02/2020 10/08/2021 Discontinued Start: 08-20-2016 ALEVE 220 MG C APS as directed NAPROXEN SODIUM [id number] Paddy Mcdonald Start: 08-20-2016 ALEVE 220 MG C APS as directed NAPROXEN SODIUM [id number] Paddy Mcdonald Comment on above: Take 1 tablet by mary alice th twice daily as needed (for pain). Take with food ondansetron 8 mg oral tablet (1 source) Serotonin-3 Receptor Antagonist Start: 7 End: 1 take 8 mg by mouth every eight hours as needed Ondansetron Hcl Discontinued 8 MG PO EVERY 8 HOURS NEEDED September 27, 2016 12:00am September 05, 2020 1:09pm oxyCODONE hydrochloride 5 mg oral tablet (9 sources) Opioid Agonist Start: 3 End: 3 take 1 tablet by mouth every eight hours as needed for pain oxyCODONE IR (ROXICODONE) 5 mg immediate release tablet Indications: S/P brain surgery Take 1 tablet by mouth every 8 hours as needed for pain. 12 tablet 0 11/01/2022 12/25/2022 Discontinued Start: 10-28-2022 End: 11-02-2022 take 1 tablet by mouth every four hours as needed oxyCODONE IR (ROXICODONE) 5 mg immediate release tablet Indications: S/P brain surgery Take 1-2 tablets by mouth every 4 hours as needed for pain for up to 5 days. 25 tablet 0 10/28/2022 11/01/2022 Discontinued Comment on above: Take 1-2 tablets by mouth every 4 hours as needed for pain for up to 5 days. Take 1 tablet by mary alice every 8 hours as needed for pain. spironolactone 50 mg oral tablet (16 sources) Aldosterone Antagonist Start: End: take 1 tablet by mouth once daily spironolactone (ALDACTONE) 50 mg tablet TAKE 1 TABLET BY MOUTH EVERY NIGHT WITH A FULL GLASS OF WATER 0 06/21/2022 02/05/2023 Discontinued (Discontinued by Patient) Comment on above: TAKE 1 TABLET BY MARY ALICE EVERY NIGHT WITH A FULL GLASS OF WATER terazosin 1 mg oral capsule (14 sources) alpha-Adrenergic Megan Start: End: take 1 capsule by mouth once daily at bedtime terazosin (HYTRIN) 1 mg capsule Take 1 capsule by mouth daily at bedtime. 30 capsule 1 05/22/2023 01/01/2024 Discontinued Comment on above: Take 1 capsule by mo [facility] daily at bedtime. 24 hr venlafaxine 75 mg extended release oral capsule (12 sources) Serotonin and Norepinephrine Reuptake Inhibitor Start: End: take 1 capsule by mouth once daily venlafaxine ER (EFFEXOR XR) 75 mg 24 hr capsule Take 1 capsule by mouth once daily. 30 capsule 1 01/01/2024 02/19/2024 Discontinued Start: 01-01-2024 End: 01-09-2024 take 1 capsule by mouth once daily venlafaxine ER (EFFEXOR XR) 37.5 mg 24 hr capsule Take 1 capsule by mouth once daily for 7 days. 7 capsule 01/01/2024 01/09/2024 Discontinued (Course of therapy completed) Problems Active Problems Problem Classification Problem Date Documented Da te Episodic/Chronic Abdominal pain (2 sources) Lower abdominal pain; Translations: [Lower abdominal pain, unspecified] 09-19-2023 Episodic Adjustment disorders (5 sources) Posttraumatic stress disorder; Translations: [Reaction to severe stress, unspecified] Onset: 5 06-04-2024 Chronic Alcohol-related disorders (3 sources) Alcohol abuse; Translations: [Alcohol abuse, uncomplicated] Onset: 4 01-20-2024 Chronic Anxiety disorders (20 sources) Generalized anxiety disorder; Translations: [Generalized anxiety disorder] Onset: 0 02-06-2020 Chronic Cancer of brain and nervous system (6 sources) Low grade glioma of brain; Translations: [Malignant neoplasm of brain, unspecified] Onset: 5 12-05-2022 Chronic Diseases of mouth; excluding dental (4 sources) Aphthous ulcer of mouth; Translations: [Recurrent oral aphthae] 02-24-2024 Episodic Epilepsy; convulsions (20 sources) Focal seizure with experiential sensory symptoms; Translations: [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 partial seizures, not intractable, without status epilepticus] Onset: 3 07-03-2022 Chronic Esophageal disorders (20 sources) Gastroesophageal reflux disease; Translations: [Gastro-esophageal reflux disease without esophagitis] Onset: 4 02-24-2024 Chronic Genitourinary symptoms and ill-defined conditions (1 source) Increased frequency of urination; Translations: [Frequency of micturition] 04-29-2024 Episodic Impulse control disorders, NEC (1 source) Impulse control disorder; Translations: [Impulse disorder, unspecified] 08-04-2024 Chronic Inflammatory diseases of female pelvic organs (1 source) Acute vaginitis; Translations: [Acute vaginitis] 11-20-2023 Episodic Joint disorders and dislocations; trauma-related (19 sources) Other tear of lateral meniscus, current injury, unspecified knee, initial encounter; Translations: [Tear of lateral meniscus of knee] Onset: 7 08-21-2016 Episodic Malaise and fatigue (1 source) Malaise and fatigue; Translations: [Other malaise] 09-19-2023 Episodic Miscellaneous mental health disorders (4 sources) Insomnia disorder related to another mental disorder; Translations: [Insomnia due to other mental disorder] Onset: 5 11-08-2024 Chronic Mood disorders (20 sources) Bipolar II disorder; Translations: [Bipolar II disorder] Onset: 2 Resolved: 4 Chronic Mood disorders (1 source) Mood disorders; Translations: [Depression, unspecified] Onset: 3 Nausea and vomiting (3 sources) Nausea; Translations: [Nausea] Onset: 4 09-19-2023 Episodic Other aftercare (6 sources) Long-term current use of drug therapy; Translations: [Other [facility] (current) drug therapy] 05-03-2024 Episodic Other aftercare (1 source) Other parts counterman (current) drug therapy; Translations: [Encounter for long-term (current) use of medications] Onset: 5 Episodic Other and unspecified benign neoplasm (20 sources) Dysembryoplastic neuroepithelial tumor; 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, unspecified] Onset: 2 Chronic Other and unspecified benign neoplasm (1 source) Benign neoplasm of brain, unspecified; Translations: [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[facility])] Onset: 3 Chronic Other connective tissue disease (1 source) Pain in calf; Translations: [Pain in right lower leg] 09-05-2020 Episodic Other female genital disorders (1 source) Vaginal irritation; Translations: [Other specified noninflammatory disorders of vagina] 04-29-2024 Episodic Other gastrointestinal disorders (20 sources) Celiac disease; Translations: [Celiac disease] Onset: 1 09-22-2020 Chronic Other gastrointestinal disorders (1 source) Celiac disease; Translations: [Celiac disease (HCC)] Onset: 3 Chronic Other gastrointestinal disorders (7 sources) Altered bowel function; Translations: [Other specified symptoms and signs involving the digestive system and abdomen] Episodic Other hereditary and degenerative nervous system conditions (2 sources) Drug-induced akathisia; Translations: [Drug induced akathisia] 06-04-2024 Chronic Other infections; including parasitic (1 source) Infection by Trichomonas; Translations: [Trichomoniasis, unspecified] 11-21-2023 Episodic Other nervous system disorders (20 sources) Chiari malformation type I; Translations: [Compression of brain] Onset: 2 07-01-2022 Chronic Other non-traumatic joint disorders (1 source) Soft tissue lesion of knee region; Translations: [Other specified joint disorders, right knee] Episodic Other non-traumatic joint disorders (1 source) Pain in right hip joint; Translations: [Pain in right hip] 06-08-2022 Episodic Other nutritional; endocrine; and metabolic disorders (20 sources) Obese class II; Translations: [Obesity, unspecified] Onset: 3 10-25-2022 Chronic Other nutritional; endocrine; and metabolic disorders (1 source) Weight gain; Translations: [Abnormal weight gain] 09-19-2023 Episodic Personality disorders (20 sources) Borderline personality disorder; Translations: [Borderline personality disorder] Onset: 4 04-23-2024 Chronic Residual codes; unclassified (2 sources) Pain; Translations: [Pain, unspecified] Episodic Residual codes; unclassified (2 sources) Postprocedural state finding; Translations: [Other specified postprocedural states] 11-20-2022 Episodic Residual codes; unclassified (2 sources) History of craniotomy; Translations: [Other specified postprocedural states] 12-05-2022 Episodic Residual codes; unclassified (1 source) Current drinker; Translations: [Other specified health status] 06-04-2024 Episodic Screening and history of mental health and substance abuse codes (1 source) Patient condition resolved; Translations: [Personal history of other mental and behavioral disorders] Episodic Skin and subcutaneous tissue infections (1 source) Impetigo; Translations: [Impetigo, unspecified] 02-24-2024 Episodic Substance-related disorders (4 sources) Cannabis dependence; Translations: [Cannabis dependence, uncomplicated] Onset: 4 01-20-2024 Chronic Substance-related disorders (2 sources) Marijuana user; Translations: [Cannabis use, unspecified, uncomplicated] Onset: 07-11-08-2024 Episodic Syncope (2 sources) Near syncope; Translations: [Syncope and collapse] Episodic Unclassified (7 sources) Postoperative physical examination; Translations: [Encounter for other specified surgical aftercare] Onset: 10-10-2016 Unclassified (2 sources) NO SHOW Unclassified (2 sources) APPOINTMENT CANCELLED Unclassified (1 source) Does not have primary care provider 09-11-2024 Past or Other Problems Problem Classification Problem Date Documented Date Episodic/Chronic Abdominal hernia (20 sources) Hiatal hernia; Translations: [Diaphragmatic hernia without obstruction or gangrene] Onset: 09-22-2020 09-22-2020 Episodic Administrative/social admission (20 sources) Patient encounter status; Translations: [Dietary counseling and surveillance] Onset: 09-01-2024 Episodic Cancer of cervix (20 sources) Low grade squamous intraepithelial lesion on cervical Papanicolaou smear; Translations: [Low grade squamous intraepithelial lesion on cytologic smear of cervix (LGSIL)] Onset: 02-16-2024 02-16-2024 Episodic E Codes: Adverse effects of medical drugs (4 sources) Adverse reaction to drug; Translations: [Adverse effect of unspecified drugs, medicaments and biological substances, initial encounter] Onset: 02-19-2024 02-19-2024 Episodic Epilepsy; convulsions (20 sources) Neurological finding; Translations: [Unspecified convulsions] Onset: 07-01-2022 Resolved: 09-27-2024 07-01-2022 Episodic Immunizations and screening for infectious disease (3 sources) Vaccination needed; Translations: [Encounter for immunization] Onset: 02-16-2024 09-27-2024 Episodic Neoplasms of unspecified nature or uncertain behavior (20 sources) Neoplasm of uncertain behavior of brain; Translations: [Neoplasm of uncertain behavior of brain, unspecified] Onset: 04-15-2022 Resolved: 09-27-2024 Chronic Other aftercare (6 sources) Sprain of anterior cruciate ligament of left knee, subsequent encounter; Translations: [Encounter for other specified surgical aftercare] Onset: 10-10-2016 12-25-2016 Episodic Other non-traumatic joint disorders (17 sources) Knee pain; Translations: [Pain in left knee] Onset: 08-20-2016 08-20-2016 Episodic Other non-traumatic joint disorders (1 source) Pain in right hip; Translations: [Pain in right hip] Onset: 06-08-2022 Episodic Other nutritional; endocrine; and metabolic disorders (20 sources) Body mass index 30+ - obesity; Translations: [Body mass index (BMI) 32.0-32.9, adult] Onset: 10-23-2022 Resolved: 09-27-2024 Chronic Other nutritional; endocrine; and metabolic disorders (20 sources) Obese class I; Translations: [Obesity, unspecified] Onset: 07-01-2022 Resolved: 10-09-2022 07-01-2022 Chronic Other screening for suspected conditions (not mental disorders or infectious disease) (20 sources) Midline shift of brain; Translations: [Other abnormal findings on diagnostic imaging of central nervous system] Onset: 10-27-2022 Resolved: 09-27-2024 10-27-2022 Episodic Residual codes; unclassified (20 sources) Disturbance of attention; Translations: [Other general symptoms and signs] Onset: 02-21-2022 Episodic Sprains and strains (20 sources) Sprain of anterior cruciate ligament of left knee, initial encounter; Translations: [Sprain of anterior cruciate ligament of left knee, subsequent encounter] Onset: 09-05-2016 Resolved: 09-27-2024 09-05-2016 Episodic Unclassified (20 sources) OPENED IN ERROR Onset: 12-31-2021 Resolved: 12-31-2021 Unclassified (3 sources) Long-term current use of drug therapy 07-07-2024 Results Test Name Value Interpretation Reference Range Facility [facility] 09-28-2024 CNOV Office Visit (JHON ) FABIAN MENJIVAR ([id number]) 2 F Date Time Provider Department 09/28/24 1:30 PM ALVARO MAGANA During your visit today, we recorded the following information about you: Alvaro Magana MD 09/28/2024 4:44 PM Signed 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 MRI today shows no recurrence of neoplasm. There is some suggestion that her right posterior hippocampus is now smaller. She admits to having 4 seizures since surgery mostly when stressed or missing medication. Recommend follow-up MRI in 1 year. 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 - desvenlafaxine ER (PRISTIQ) 100 mg 24 hr tablet Take 1 tablet by mouth daily with breakfast. Take with 50 mg dose. - desvenlafaxine ER (PRISTIQ) 50 mg 24 hr tablet Take 1 tablet by mouth once daily. Take with 100 mg dose. - busPIRone (BUSPAR) 15 mg tablet Take 1 tablet by mouth two times a day. - guanFACINE (INTUNIV) 1 mg ER 24 hr tablet(s) Take 1 tablet by mouth daily at bedtime. - lamoTRIgine (LAMICTAL) 100 mg tablet Take 1 tablet by mouth two times a day. - dicyclomine (BENTYL) 10 mg capsule TAKE 1 CAPSULE BY MOUTH BEFORE DINNER. MAY REPEAT AT BEDTIME NEEDED. - triamcinolone (KENALOG IN ORABASE) 0.1 % paste Apply to the apthous ulcer TID for 5 days - clonazePAM orally disintegrating (KLONOPIN WAFER) 0.5 mg disintegrating tablet Take 1 tablet by mouth as needed (As needed for auras) for up to 30 days. Do not take more than 2 tablets in 24 hours. - Drospirenone-Ethinyl Estradiol (LORYNA, 28,) 3-0.02 mg per tablet Take 1 tablet by mouth once daily. - levETIRAcetam (KEPPRA) 500 mg tablet Take 1 tablet by mouth two times a day. - midazolam (NAYZILAM) 5 mg/spray (0.1 mL) nasal spray Use 1 spray in one nostril as needed for seizures lasting > 5 minutes or >=3 seizures in 8 hours. May repeat dose in alternate nostril after 10 minutes based on response and tolerability. - folic acid 1 mg tablet Take 1 tablet by mouth once daily. Meds Comments as of 11/08/2020: 11/08/20 states taking no medication. Afshan Sanabria RN Problem List As Of Date 09/28/2024 Noted Resolved Generalized anxiety disorder [F41.1] 02/06/2020 Celiac disease [K90.0] 09/22/2020 Hiatal hernia [K44.9] 09/22/2020 Rupture of anterior cruciate ligament of right *09/22/2020 09/27/2024 S/P right knee arthroscopically-ladi gabi anteri*10/13/2020 09/27/2024 OPENED IN ERROR 12/31/2021 12/31/2021 Spells of decreased attentiveness [R68.89] 02/21/2022 Bipolar 2 disorder (HCC) [F31.81] 03/25/2022 04/23/2024 Mixed obsessional thoughts and acts [F42.2] 03/25/2022 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) [*04/15/2022 09/27/2024 Seizure-like activity (HCC) [R56.9] 07/01/2022 09/27/2024 Obesity, Class I, BMI 30-34.9 [E66.811] 07/01/2022 10/09/2022 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] 03/18/2022 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 Focal seizure with experiential sensory symptom*07/03/2022 Depression [F32.A] 10/23/2022 04/23/2024 Obesity (BMI 30-39.9) [E66.9] 10/23/2022 09/27/2024 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 No evidence of worsening residual or recurrent tumor. * No acute intracranial abnormality. No new abnormal enhancement on post infusion images. * Imaging findings of Chiari I malformation. No syrinx in the visualized upper cervical spine. Maintenance And Engineering Manager: [facility] Transcribe Date/Time: Sep 28 2024 12:36P Dictated by : HANNAH COLMENARES MD This examination was interpreted and the report reviewed and electronically signed by: HANNAH COLMENARES MD on Sep 28 2024 1:23PM [facility] DIVISION OF RADIOLOGY * * *Final Report* * * DATE OF EXAM: Sep 28 2024 11:16AM [facility] 0295 - MRI BRAIN WO/W IVCON / 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 Surveillance study. TECHNIQUE: Routine brain MRI protocol without and with contrast including diffusion images. MQ: [id number] Contrast: 9 mL Elucirem IV COMPARISON: MRI brain 09/17/2023 RESULT: Acute Change: There is no evidence of restricted diffusion to suggest an acute infarct. Hemorrhage: Minimal postoperative blood products at the resection site in the right temporal region. No evidence of a new space-occupying or recent parenchymal hemorrhage on the susceptibility weighted images. Postoperative/Mass Lesion/ Mass Effect: Redemonstrated postsurgical changes from prior right-sided craniotomy for resection of the right temporal mass. Mild dural thickening and enhancement beneath the colectomy site consistent with postsurgical changes. Mild gliosis/encephalomalac ia surrounding the resection cavity. No discrete nodular enhancing lesion or masslike FLAIR hyperintensity to suggest recurrent or worsening residual disease. Otherwise, no evidence of an intracranial mass or extra-axial fluid collection, abnormal parenchymal or leptomeningeal enhancement is noted following contrast administration, or significant mass effect. Chronic Change: The white matter is within normal limits of signal intensity for age. Parenchyma: No significant volume loss for age. The brain parenchyma is otherwise within normal limits of signal intensity and morphology. Redemonstrated wedge-shaped bilateral cerebellar tonsillar herniation measuring up to 1 cm below the level of foramen magnum. Resultant crowding of the neurovascular structures at the level of craniocervical junction consistent with Chiari type I malformation. Unchanged since prior. No discrete syrinx in the partially visualized upper cervical spinal cord. Ventricles: Normal caliber and morphology. Skull Base: Hypothalamic and pituitary region are grossly normal. Craniocervical junction is normal. No significant marrow replacement process. Vasculature: Major intracranial arterial structures, and dural venous sinuses show typical flow void, suggesting patency by spin echo criteria. Other: The visualized paranasal sinuses and mastoid air cells are clear. The orbits and extracranial soft tissues are unremarkable. Slight prominence of the nasopharyngeal adenoids and bilateral palatine tonsils without discrete lesion or fluid collection. Slightly prominent bilateral parapharyngeal lymph nodes. Imaging findings likely secondary to nonspecific infectious/inflammator y changes. Correlate with findings. Mastoid effusions subcentimeter parotid nodules which might be secondary to intraparotid lymph nodes or primary parotid lesions, relatively unchanged in comparison to prior. DIVISION OF RADIOLOGY Provider, [facility] - 09/28/2024 * * *Final Report* * * DATE OF EXAM: Sep 28 2024 11:16AM [facility] 0295 - MRI BRAIN WO/W IVCON / 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 Surveillance study. TECHNIQUE: Routine brain MRI protocol without and with contrast including diffusion images. MQ: MRBWOW_2 Contrast: 9 mL Elucirem IV COMPARISON: MRI brain 09/17/2023 RESULT: Acute Change: There is no evidence of restricted diffusion to suggest an acute infarct. Hemorrhage: Minimal postoperative blood products at the resection site in the right temporal region. No evidence of a new space-occupying or recent parenchymal hemorrhage on the susceptibility weighted images. Postoperative/Mass Lesion/ Mass Effect: Redemonstrated postsurgical changes from prior right-sided craniotomy for resection of the right temporal mass. Mild dural thickening and enhancement beneath the colectomy site consistent with postsurgical changes. Mild gliosis/encephalomalac ia surrounding the resection cavity. No discrete nodular enhancing lesion or masslike FLAIR hyperintensity to suggest recurrent or worsening residual disease. Otherwise, no evidence of an intracranial mass or extra-axial fluid collection, abnormal parenchymal or leptomeningeal enhancement is noted following contrast administration, or significant mass effect. Chronic Change: The white matter is within normal limits of signal intensity for age. Parenchyma: No significant volume loss for age. The brain parenchyma is otherwise within normal limits of signal intensity and morphology. Redemonstrated wedge-shaped bilateral cerebellar tonsillar herniation measuring up to 1 cm below the level of foramen magnum. Resultant crowding of the neurovascular structures at the level of craniocervical junction consistent with Chiari type I malformation. Unchanged since prior. No discrete syrinx in the partially visualized upper cervical spinal cord. Ventricles: Normal caliber and morphology. Skull Base: Hypothalamic and pituitary region are grossly normal. Craniocervical junction is normal. No significant marrow replacement process. Vasculature: Major intracranial arterial structures, and dural venous sinuses show typical flow void, suggesting patency by spin echo criteria. Other: The visualized paranasal sinuses and mastoid air cells are clear. The orbits and extracranial soft tissues are unremarkable. Slight prominence of the nasopharyngeal adenoids and bilateral palatine tonsils without discrete lesion or fluid collection. Slightly prominent bilateral parapharyngeal lymph nodes. Imaging findings likely secondary to nonspecific infectious/inflammator y changes. Correlate with findings. Mastoid effusions subcentimeter parotid nodules which might be secondary to intraparotid lymph nodes or primary parotid lesions, relatively unchanged in comparison to prior. IMPRESSION IMPRESSION: * Redemonstrated postsurgical changes from right anterior temporal lobe resection. No evidence of worsening residual or recurrent tumor. * No acute intracranial abnormality. No new abnormal enhancement on post infusion images. * Imaging findings of Chiari I malformation. No syrinx in the visualized upper cervical spine. Maintenance And Engineering Manager: [facility] Transcribe Date/Time: Sep 28 2024 12:36P Dictated by : HANNAH COLMENARES MD This examination was interpreted and the report reviewed and electronically signed by: HANNAH COLMENARES MD on Sep 28 2024 1:23PM EST [facility] Radiology Study observation (narrative) [facility] MR Brain WO and W contrast I VOrdered By: [facility] Provider on 09-28-2024 [facility] MRI BRAIN WO/W IVCONon 09-28 MRI BRAIN WO/W IVCON * * *Final Report* * * DATE OF EXAM: Sep 28 2024 11:16AM [facility] [id number] - MRI BRAIN WO/W IVCON / 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 Surveillance study. TECHNIQUE: Routine brain MRI protocol without and with contrast including diffusion images. MQ: MRBWOW_2 Contrast: 9 mL Elucirem IV COMPARISON: MRI brain 09/17/2023 RESULT: Acute Change: There is no evidence of restricted diffusion to suggest an acute infarct. Hemorrhage: Minimal postoperative blood products at the resection site in the right temporal region. No evidence of a new space-occupying or recent parenchymal hemorrhage on the susceptibility weighted images. Postoperative/Mass Lesion/ Mass Effect: Redemonstrated postsurgical changes from prior right-sided craniotomy for resection of the right temporal mass. Mild dural thickening and enhancement beneath the colectomy site consistent with postsurgical changes. Mild gliosis/encephalomalac ia surrounding the resection cavity. No discrete nodular enhancing lesion or masslike FLAIR hyperintensity to suggest recurrent or worsening residual disease. Otherwise, no evidence of an intracranial mass or extra-axial fluid collection, abnormal parenchymal or leptomeningeal enhancement is noted following contrast administration, or significant mass effect. Chronic Change: The white matter is within normal limits of signal intensity for age. Parenchyma: No significant volume loss for age. The brain parenchyma is otherwise within normal limits of signal intensity and morphology. Redemonstrated wedge-shaped bilateral cerebellar tonsillar herniation measuring up to 1 cm below the level of foramen magnum. Resultant crowding of the neurovascular structures at the level of craniocervical junction consistent with Chiari type I malformation. Unchanged since prior. No discrete syrinx in the partially visualized upper cervical spinal cord. Ventricles: Normal caliber and morphology. Skull Base: Hypothalamic and pituitary region are grossly normal. Craniocervical junction is normal. No significant marrow replacement process. Vasculature: Major intracranial arterial structures, and dural venous sinuses show typical flow void, suggesting patency by spin echo criteria. Other: The visualized paranasal sinuses and mastoid air cells are clear. The orbits and extracranial soft tissues are unremarkable. Slight prominence of the nasopharyngeal adenoids and bilateral palatine tonsils without discrete lesion or fluid collection. Slightly prominent bilateral parapharyngeal lymph nodes. Imaging findings likely secondary to nonspecific infectious/inflammator y changes. Correlate with findings. Mastoid effusions subcentimeter parotid nodules which might be secondary to intraparotid lymph nodes or primary parotid lesions, relatively unchanged in comparison to prior. IMPRESSION: * Redemonstrated postsurgical changes from right anterior temporal lobe resection. No evidence of worsening residual or recurrent tumor. * No acute intracranial abnormality. No new abnormal enhancement on post infusion images. * Imaging findings of Chiari I malformation. No syrinx in the visualized upper cervical spine. Maintenance And Engineering Manager: [facility] Transcribe Date/Time: Sep 28 2024 12:36P Dictated by : HANNAH COLMENARES MD This examination was interpreted and the report reviewed and electronically signed by: HANNAH COLMENARES MD on Sep 28 2024 1:23PM EST [id number] Normal [facility] CNOVon 09-27-2024 CNOV Office Visit (INTMWS ) FABIAN MENJIVAR ([id number]) 2 F Date Time Provider Department 09/27/24 9:40 AM BRAULIO TRONCOSO INTMWS During your visit today, we recorded the following information about you: Pulse Respiration Blood pressure Weight 80/minute 18/minute 116/70 92.2 kg Height 1.615 m Braulio Troncoso MD 09/27/2024 10:31 AM Signed This note was created using [employer]. 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 She had no new concerns. She was on pantoprazole for GERD, and dicyclomine for diarrhea related to celiac and possibly irritable bowel syndrome. She had chronic stable nausea, with occasional vomiting. 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 She sees psychiatry for mental health. Review of Systems Constitutional: Negative for fatigue, fever and unexpected weight change. HENT: Negative for congestion, sneezing and trouble swallowing. Eyes: Negative for visual disturbance. Respiratory: Negative for cough, shortness of breath and wheezing. Cardiovascular: Negative for chest pain and palpitations. Gastrointestinal: Negative for abdominal pain and constipation. See HPI Genitourinary: Negative for dysuria. Musculoskeletal: Negative for arthralgias and back pain. Neurological: Negative for dizziness, syncope, weakness and headaches. 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 Family history of seizure disorder Focal seizure with experiential sensory symptoms ([facility]) 07/03/2022 Gastroesophageal reflux disease without esophagitis 02/16/2024 Generalized anxiety disorder 02/06/2020 Hiatal hernia History of heavy periods 2015 LGSIL on Pap smear of cervix 02/16/20242022 LSIL 2023 LSIL Needs pap 2024 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, 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 ([facility]) 10/25/2022 Low back strain 10/2015 [facility]/ PT Mixed obsessional thoughts and acts 03/25/2022 Moderate episode of recurrent major depressive disorder ([facility]) 04/29/2024 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[facility]) 04/15/2022 Obesity, Class II, BMI 35-39.9 10/25/2022 OCD (obsessive compulsive disorder) PMH - PAST MEDICAL HISTORY OF 2006 normal color vision Rupture of anterior cruciate ligament of right knee 09/22/2020 Seizure-like activity ([facility]) 07/01/2022 Spells of decreased attentiveness 02/21/2022 Trichomoniasis 10/2023 PAST SURGICAL HISTORY Procedure Laterality Date BRAIN SURGERY HX 10/25/2022 EGD 08/28/2020 Hiatal hernia, Variable villous abnormality with associated epithelial lymphocytosis, Gastric oxyntic-type mucosa with no pathologic diagnostic abnormality KNEE SURGERY HX Right 2020 ACL repair KNEE SURGERY HX Right 2021 Scar tissue removal PAST SURGICAL HISTORY OF Left 2016 ACL repair, 8th grade FAMILY HISTORY Problem Relation Age of Onset No Known Problems Mother Diabetes Father No Known Problems Sister No Known Problems Brother other (Anneurism) Maternal Grandmother Heart Maternal Grandfather age 62 [place] Diabetes Paternal Grandmother No Known Problems Paternal Grandfather Heart Maternal Uncle Enlarged heart Diabetes Other mggfa Cancer Other MGGF Anesthesia Problems No Family History Social History Tobacco Use Smoking status: Never Smokeless tobacco: Never Vaping Use Vaping status: Some Days Substances: Nicotine, Flavoring Devices: Disposable Substance Use Topics Alcohol use: Yes Alcohol/week: 3.0 standard drinks of alcohol Types: 3 Standard drinks or equivalent per week Drug use: Yes Frequency: 2.0 times per week Types: Marijuana ALLERGIES No Known Allergies Current Outpatient Medications Medication Sig desvenlafaxine ER (PRISTIQ) 100 mg 24 hr tablet Take 1 tablet by mouth daily with breakfast. Take with 50 mg dose. desvenlafaxine ER (PRISTIQ) 50 mg 24 hr tablet Take 1 tablet by mouth once daily. Take with 100 mg dose. busPIRone (BUSPAR) 15 mg tablet Take 1 tablet by mouth two times a day. guanFACINE (INTUNIV) 1 mg ER 24 hr tablet(s) Take 1 tablet by mouth daily at bedtime. lamoTRIgine (LAMICTAL) 100 mg tablet Take 1 tablet by mouth two times a day. dicyclomine (BENTYL) 10 mg capsule TAKE 1 CAPSULE BY MOUTH BEFORE DINNER. MAY REPEAT AT BEDTIME NEEDED. triamcinolone (KENALOG IN ORABASE) 0.1 % paste Apply to the apthous ulcer TID for 5 days (Patient taking differently: by DENTAL route as needed. Apply to the apthous ulcer TID for 5 days) c (more content not included)... Normal [facility] C GENITALon 08-23-2024 C GENITAL [facility] pt of Laboratory Services [address] [place] [id number] [phone] Name: FABIAN MENJIVAR : 2000 Admitting Provider: Gender Female Financial [phone] : Number: [facility] Lab DropOff n: Admit 08/20/2024 Date: Discharge 08/20/2024 Microbiology Date: PROCEDURE: C GENITAL [] SOURCE: VAGINAL BODY SITE: COLLECTED DATE/TIME: 08/20/2024 13:27 EDT RECEIVED DATE/TIME: 08/20/2024 18:34 EDT START DATE/TIME: 08/20/2024 18:34 EDT FREE TEXT SOURCE: ORDERING PHYSICIAN: ABBIE LEBRON CNP FINAL REPORTS Final Report [] Verified Date/Time: 08/23/2024 10:16 EDT Rare Georgiana albicans with Normal Vaginal Marcy isolated, including: Many Gardnerella vaginalis STAINS GS [] Verified Date/Time: 08/20/2024 19:24 EDT Many epithelial cells Clue Cells Rare white blood cells seen. Many Gram Variable Bacilli. Many Gram Positive Rods. Few Gram Positive Cocci. ____ ____ L=Low, H= High, *= Abnormal, C=Critical, f=Footnote, c=Corrected, i=Interp Data Name: FABIAN MENJIVAR Print 08/23/2024 13:47 EDT Date/Time: Normal [facility] Comment on above: Performed By: #### [id number] #### [facility] Laboratory Services [address] [place], [place] [id number] Nuclear Plant Construction Worker: Vikas Servin MD GP Allyn 08-23-2024 Genprobe Chlamydia Negative Normal [facility] Comment on above: Order Comment: Order ed on Fin# [id number] Result Comment: This Chlamydia assay is being performed via a second generation NAAT that utilizes target capture, sporting goods sales manager mediated amplification and dual kenetic assay technologies. Performed By: #### 1 [id number], [id number] #### [facility] [address] [place] [id number] [employer] Plant Construction Worker: Vikas Servin MD GP GCon 08-23-2024 Genprobe GC Negative Normal [facility] Comment on above: Order Comment: Order ed on Fin# [id number] Result Comment: This Gonorrhoea assay is being performed via a second generation NAAT that utilizes target capture, sporting goods sales manager mediated amplification and dual kenetic assay technologies. Performed By: #### 1 [id number], [id number] #### [facility] [address] [place] [id number] [employer] Plant Construction Worker: Vikas Servin MD GP Trichomonason 08-23-2024 GP Trichomonas Negative Normal Negative [facility] Comment on above: Order Comment: Order ed on Fin# [id number] Result Comment: This Trichomonas assay is performed via a second generation NAAT that utilizes target capture, sporting goods sales manager mediated amplification and dual kenetic assay technologies. Performed By: #### 1 [id number], [id number] #### [facility] [address] [place] [id number] [employer] Plant Construction Worker: Vikas Servin MD [facility] Medicine Physician Shabnam peoples Noteon 08-20-2024 [facility] Medicine Physician Progress Note FABIAN MENJIVAR :2000 Registration Date:08/20/2024 Chief Complaint: STI screening History of Present Illness: Disclaimer: The content of this note was generated by an artificial intelligence (AI) language model version 25.03.0.0 The patient is a 23-year-old female presenting for STI testing. BV and STI Testing The patient is presenting for STI testing and reports a fishy odor for the past four days, which she noticed after her period ended. She has a history of BV and was tested for it previously at this clinic. She is sexually active and does not always use condoms, though she did use one during her last sexual encounter. She denies any itching or abnormal discharge. Menstrual period ended last week. Review of Systems: Genitourinary: Positive for fishy smell and tenderness on the left side. Negative for itching and abnormal discharge. Physical Exam: Vitals & Measurements No qualifying data available. Depression Screening Scores: No Depression Screening data available for this encounter. Fall Risk Assessment: No Falls Risk Assessment data available for this encounter. Genitourinary: Pelvic exam performed: Physiologic discharge noted, no odor noted. Normal vulva, vaginal hallman pink. Cervix pink. Slight left adnexal tenderness noted with internal exam. Medication Reconciliation: What How Much When Instructions Unchanged busPIRone = BuSpar (busPIRone 15 mg oral tablet) 1 Tabs Oral TWICE A DAY Unchanged clonazePAM (clonazePAM 0.5 mg oral tablet) 1 Tabs Oral THREE TIMES A DAY as needed for Seizure Unchanged desvenlafaxine (desvenlafaxine (as base) 100 mg oral tablet, extended release) 1 Tabs Oral DAILY Unchanged desvenlafaxine (desvenlafaxine (as succinate) 50 mg oral tablet, extended release) 1 Tabs Oral DAILY Unchanged dicyclomine (dicyclomine 10 mg oral capsule) 2 Capsules Oral FOUR TIMES A DAY Unchanged drospirenone-ethinyl estradiol (Loryna 3 mg-0.02 mg oral tablet) 1 Tabs Oral DAILY Unchanged folic acid (folic acid 1 mg oral tablet) 1 Tabs Oral DAILY Unchanged guanFACINE (guanFACINE 1 mg oral tablet) 1 Tabs Oral AT BEDTIME Unchanged lamoTRIgine (lamoTRIgine 100 mg oral tablet) 1 Tabs Oral TWICE A DAY Unchanged levETIRAcetam (levETIRAcetam 500 mg oral tablet) 1 Tabs Oral TWICE A DAY Unchanged midazolam = Versed (Nayzilam 5 mg/ inh nasal spray) 1 Sprays Intranasal ONCE Unchanged pantoprazole (pantoprazole 40 mg oral delayed release tablet) 1 Tabs Oral DAILY Assessment/Plan: Patient is a 23-year-old female presenting today for STI screening and BV check, with a history of BV. This Visit Diagnosis 1. Screening examination for STI Z11.3 - Patient requests STI screening and BV check. - Urine test for chlamydia, gonorrhea, and trichomonas ordered. - Blood test for HIV and syphilis offered but declined by patient. - Will contact with culture results. Ordered: AMB Office/Outpt Est Pt Low MDM / 20 min [id number], 08/20/2024 13:34:00 EDT, Screening examination for STI / Vaginal odor C GENITAL(GENITAL CULTURE), ROUTINE, 08/20/2024, Specimen type: Vaginal, Order for future visit-Diagnosis required, Screening examination for STI GP CHLAM, ROUTINE, 08/20/2024, Specimen type: Urine, Dx: Screening examination for STI GP GC, ROUTINE, 08/20/2024, Specimen type: Urine, Dx: Screening examination for STI GP Trichomonas, ROUTINE, 08/20/2024, Specimen type: Urine, Dx: Screening examination for STI 2. Vaginal odor N89.8 - [id number] test for BV performed, negative; culture sent for BV, yeast, and strep B. Ordered: AMB Office/Outpt Est Pt Low MDM / 20 min [id number], 08/20/2024 13:34:00 EDT, Screening examination for STI / Vaginal odor Problem List/Past Medical History: Ongoing No chronic problems Procedure/Surgical History: No qualifying data available. Medications: busPIRone = BuSpar(busPIRone 15 mg oral tablet), 15 mg= 1 tabs, ORAL, BID clonazePAM(clonazePAM 0.5 mg oral tablet), 0.5 mg= 1 tabs, ORAL, TID, PRN desvenlafaxine(desvenl afaxine (as succinate) 50 mg oral tablet, extended release), 50 mg= 1 tabs, ORAL, DAILY desvenlafaxine(desvenl afaxine (as base) 100 mg oral tablet, extended release), 100 mg= 1 tabs, ORAL, DAILY dicyclomine(dicyclomin e 10 mg oral capsule), 20 mg= 2 caps, ORAL, QID drospirenone-ethinyl estradiol(Loryna 3 mg-0.02 mg oral tablet), 1 tabs, ORAL, DAILY folic acid(folic acid 1 mg oral tablet), 1 mg= 1 tabs, ORAL, DAILY guanFACINE(guanFACINE 1 mg oral tablet), 1 mg= 1 tabs, ORAL, QHS lamoTRIgine(lamoTRIgin e 100 mg oral tablet), 100 mg= 1 tabs, ORAL, BID levETIRAcetam(levETIRA cetam 500 mg oral tablet), 500 mg= 1 tabs, ORAL, BID midazolam = Versed(Nayzilam 5 mg/inh nasal spray), 5 mg= 1 sprays, Intranasal, ONCE pantoprazole(pantopraz ole 40 mg oral delayed release tablet), 40 mg= 1 tabs, ORAL, DAILY Allergies: No Known Allergies Social History: Alcohol Use:Current Type:Beer Frequency:1-2 t (more content not included)... Normal [facility] Ambulatory Clinical Summaryo n 08-20-2024 Ambulatory Clinical Summary FABIAN MENJIVAR :2000 Registration Date:08/20/2024 Ambulatory Visit Instructions Your Diagnosis Screening examination for STI Vaginal odor Your Care Team Attending Physician - ABBIE LEBRON CNP Primary Care Physician - DIONTE FU Vitals No qualifying data available. What to do next Scheduled Follow-Up Appointments No results You Need to Schedule the Following Appointments C GENITAL(GENITAL CULTURE), ROUTINE, 08/20/2024, Specimen type: Vaginal, Order for future visit-Diagnosis required, Screening examination for STI GP CHLAM, ROUTINE, 08/20/2024, Specimen type: Urine, Dx: Screening examination for STI GP GC, ROUTINE, 08/20/2024, Specimen type: Urine, Dx: Screening examination for STI GP Trichomonas, ROUTINE, 08/20/2024, Specimen type: Urine, Dx: Screening examination for STI Medications What How Much When Instructions Unchanged busPIRone = BuSpar (busPIRone 15 mg oral tablet) 1 Tabs Oral TWICE A DAY Unchanged clonazePAM (clonazePAM 0.5 mg oral tablet) 1 Tabs Oral THREE TIMES A DAY as needed for Seizure Unchanged desvenlafaxine (desvenlafaxine (as base) 100 mg oral tablet, extended release) 1 Tabs Oral DAILY Unchanged desvenlafaxine (desvenlafaxine (as succinate) 50 mg oral tablet, extended release) 1 Tabs Oral DAILY Unchanged dicyclomine (dicyclomine 10 mg oral capsule) 2 Capsules Oral FOUR TIMES A DAY Unchanged drospirenone-ethinyl estradiol (Loryna 3 mg-0.02 mg oral tablet) 1 Tabs Oral DAILY Unchanged folic acid (folic acid 1 mg oral tablet) 1 Tabs Oral DAILY Unchanged guanFACINE (guanFACINE 1 mg oral tablet) 1 Tabs Oral AT BEDTIME Unchanged lamoTRIgine (lamoTRIgine 100 mg oral tablet) 1 Tabs Oral TWICE A DAY Unchanged levETIRAcetam (levETIRAcetam 500 mg oral tablet) 1 Tabs Oral TWICE A DAY Unchanged midazolam = Versed (Nayzilam 5 mg/ inh nasal spray) 1 Sprays Intranasal ONCE Unchanged pantoprazole (pantoprazole 40 mg oral delayed release tablet) 1 Tabs Oral DAILY Allergies No Known Allergies Common Emergency Awareness Tips IS IT A STROKE? Act FAST and Check for these signs: FACE Does the face look uneven? ARM Does one arm drift down? SPEECH Does their speech sound strange? TIME Call at any sign of stroke Heart Attack Signs Chest discomfort: Most heart attacks involve discomfort in the center of the chest and lasts more than a few minutes, or goes away and comes back. It can feel like uncomfortable pressure, squeezing, fullness or pain. Discomfort in upper body: Symptoms can include pain or discomfort in one or both arms, back, neck, jaw or stomach. Shortness of breath: With or without discomfort. Other signs: Breaking out in a cold sweat, nausea, or lightheaded. Remember, MINUTES DO MATTER. If you experience any of these heart attack warning signs, call to get immediate medical attention! Normal [facility] Nathalia 07-26-2024 KEE Telephone ([id number]) FAIBAN MENJIVAR ([id number]) 2 F Date Time Provider Department 07/26/24 ALVARO MAGANA [id number] During your visit today, we recorded the following information about you: Young PSS, Chasidy 07/26/2024 2:39 PM Signed General call : Full name of person calling: Etienne Menjivar Relationship to patient: dad Phone # : [phone] (home) Reason for call: asking for 1st week of September appointment instead, can she do mri and Dr Escobar appointment then??? Patient of Grisel Ellsworth RN 07/26/2024 3:01 PM Signed Left voicemail for dad to call office. 09/28 or 09/29 available. DENIS Cano Josie, RN 07/26/2024 4:43 PM Signed Spoke with Dad requesting OV with Dr. Magana 09/28/2024 at 1330 with MRI prior. Will call to change MRI appointment and r/s OV. Grisel Tomlin RN Allergies As of Date: 07/26/2024 (No Known Allergies) Date Reviewed: 06/04/2024 Reviewed by: Deanna Ybarra LPN - Fully Assessed Reason for Visit: general [Other] Cmt: Appointment? Prescriptions as of 07/27/2024 - lamoTRIgine (LAMICTAL) 100 mg tablet Take 1 tablet by mouth two times a day. - desvenlafaxine ER (PRISTIQ) 100 mg 24 hr tablet Take 1 tablet by mouth daily with breakfast. Take with 50 mg dose. - desvenlafaxine ER (PRISTIQ) 50 mg 24 hr tablet Take 1 tablet by mouth once daily. Take with 100 mg dose. - busPIRone (BUSPAR) 10 mg tablet Take 1 tablet by mouth two times a day. - dicyclomine (BENTYL) 10 mg capsule TAKE 1 CAPSULE BY MOUTH BEFORE DINNER. MAY REPEAT AT BEDTIME NEEDED. - triamcinolone (KENALOG IN ORABASE) 0.1 % paste Apply to the apthous ulcer TID for 5 days - clonazePAM orally disintegrating (KLONOPIN WAFER) 0.5 mg disintegrating tablet Take 1 tablet by mouth as needed (As needed for auras) for up to 30 days. Do not take more than 2 tablets in 24 hours. - pantoprazole DR (PROTONIX) 40 mg tablet Take 1 tablet by mouth once daily. - Drospirenone-Ethinyl Estradiol (LORYNA, 28,) 3-0.02 mg per tablet Take 1 tablet by mouth once daily. - levETIRAcetam (KEPPRA) 500 mg tablet Take 1 tablet by mouth two times a day. - midazolam (NAYZILAM) 5 mg/spray (0.1 mL) nasal spray Use 1 spray in one nostril as needed for seizures lasting > 5 minutes or >=3 seizures in 8 hours. May repeat dose in alternate nostril after 10 minutes based on response and tolerability. - folic acid 1 mg tablet Take 1 tablet by mouth once daily. Meds Comments as of 11/08/2020: 11/08/20 states taking no medication. 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) [*04/15/2022 Seizure-like activity (HCC) [R56.9] 07/01/2022 Obesity, Class I, BMI 30-34.9 [E66.811] 07/01/2022 10/09/2022 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] 03/18/2022 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 Focal seizure with experiential sensory symptom*07/03/2022 Depression [F32.A] 10/23/2022 04/23/2024 Obesity (BMI 30-39.9) [E66.9] 10/23/2022 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 Obesity, Class II, BMI 35-39.9 [E66.812] 10/25/2022 Midline shift of brain [R90.89] 10/27/2022 LGSIL on Pap smear of cervix [R87.612] 02/16/2024 Borderline personality disorder (HCC) [F60.3] 04/23/2024 Encounter Status:Closed by GRISEL TOMLIN on 07/27/24 [facility] 06-07-2024 [facility] Telephone (PSWSTR) FABIAN MENJIVAR ([id number]) 2 F Date Time Provider Department 06/07/24 KANG BUENROSTRO PSWSTR During your visit today, we recorded the following information about you: Deanna Ybarra LPN 06/07/2024 4:40 PM Signed [employer] has been approved for patient. HILARIO Esquivel Nishi J, PRIMARY SCHOOL TEACHER LIBRARIAN.[facility] 06/07/2024 4:44 PM Signed Noted. Thank you. Allergies As of Date: 06/07/2024 (No Known Allergies) Date Reviewed: 06/04/2024 Reviewed by: Deanna Ybarra LPN - Fully Assessed Prescriptions as of 06/07/2024 - brexpiprazole (REXULTI) 1 mg tablet Take 1 tablet by mouth once daily. - desvenlafaxine ER (PRISTIQ) 100 mg 24 hr tablet Take 1 tablet by mouth daily with breakfast. - pantoprazole DR (PROTONIX) 40 mg tablet Take 1 tablet by mouth once daily. - Drospirenone-Ethinyl Estradiol (LORYNA, 28,) 3-0.02 mg per tablet Take 1 tablet by mouth once daily. - dicyclomine (BENTYL) 10 mg capsule TAKE 1 CAPSULE BY MOUTH BEFORE DINNER. MAY REPEAT AT BEDTIME NEEDED. - triamcinolone (KENALOG IN ORABASE) 0.1 % paste Apply to the apthous ulcer TID for 5 days - clonazePAM orally disintegrating (KLONOPIN WAFER) 0.5 mg disintegrating tablet Take 1 tablet by mouth as needed (As needed for auras) for up to 30 days. Do not take more than 2 tablets in 24 hours. - levETIRAcetam (KEPPRA) 500 mg tablet Take 1 tablet by mouth two times a day. - lamoTRIgine (LAMICTAL) 100 mg tablet Take 1 tablet by mouth two times a day. - midazolam (NAYZILAM) 5 mg/spray (0.1 mL) nasal spray Use 1 spray in one nostril as needed for seizures lasting > 5 minutes or >=3 seizures in 8 hours. May repeat dose in alternate nostril after 10 minutes based on response and tolerability. - folic acid 1 mg tablet Take 1 tablet by mouth once daily. Meds Comments as of 11/08/2020: 11/08/20 states taking no medication. Afshan Sanabria RN Problem List As Of Date 06/07/2024 Noted Resolved Generalized anxiety disorder [F41.1] 02/06/2020 Celiac disease [K90.0] 09/22/2020 Hiatal hernia [K44.9] 09/22/2020 Rupture of anterior cruciate ligament of right *09/22/2020 S/P right knee arthroscopically-ladi yousif*10/13/2020 OPENED IN ERROR 12/31/2021 12/31/2021 Spells of decreased attentiveness [R68.89] 02/21/2022 Bipolar 2 disorder (HCC) [F31.81] 03/25/2022 04/23/2024 Mixed obsessional thoughts and acts [F42.2] 03/25/2022 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) [*04/15/2022 Seizure-like activity (HCC) [R56.9] 07/01/2022 Obesity, Class I, BMI 30-34.9 [E66.811] 07/01/2022 10/09/2022 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] 03/18/2022 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 Focal seizure with experiential sensory symptom*07/03/2022 Depression [F32.A] 10/23/2022 04/23/2024 Obesity (BMI 30-39.9) [E66.9] 10/23/2022 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 Obesity, Class II, BMI 35-39.9 [E66.812] 10/25/2022 Midline shift of brain [R90.89] 10/27/2022 LGSIL on Pap smear of cervix [R87.612] 02/16/2024 Borderline personality disorder (HCC) [F60.3] 04/23/2024 Encounter Status:Closed by DEANNA YBARRA on 06/07/24 [facility] CONSULT PROGon 05-24-2024 CONSULT PROG HNO ID: [id number] Author: MARLIN DAVIS [facility] Service: Behavioral Health IOP (Intensive Outpatient Program) Author Type: Therapist Type: Consult Progress Note Filed: 05/24/2024 13:27 Note Text: Summary: DA for DBT IOP DIAGNOSTIC ASSESSMENT FOR IOP (INTENSIVE OUTPATIENT PROGRAM) SERVICE DATE: 05/24/2024 SERVICE TIME: 1:00pm - 1:16pm REFERRED BY: Tami Pastor PsyD Virtual platform used: [employer] This Visit is being conducted with the use of a HIPPA compliant telecommunication system permitting interactive audio and or video platform. Proper identity, and was established. Informed consent was obtained via electronic signature via patient's MyChart account. Location of patient: [place] Identifying Information: Fabian Menjivar is a 23 year old female who is accompanied by Self. Met with Pt for DBT IOP intake assessment. In discussing the program, Pt reported that she is a full-time student and unable to commit to IOP schedule at this time. Pt stated that she is interested in DBT and has been referred by her outpatient providers Tami Pastor PsyD, and NACNY Lopez, for this focus. Plan: Refer patient to schedule intake with Mikala Pathak PsyD, for DBT Skills Group that meets in person on Fridays at [facility] from 10:30am - 12pm; Pt noted this would work with current schedule. Encouraged Pt to reach out to program in the future if interested in enrolling, which Pt expressed interest as a possibility in the summer when on break. Assessed Pt current safety due to response on PHQ-9; Pt reported passive thoughts of not wanting to wake up at night before bed, denied active SI. I don't have a plan and I don't want to hurt myself. This therapist provided referral to Mikala Pathak PsyD, and sent Pt a [employer] message with summary of referral plan. Normal [facility] BACTERIAL VAGINOSIS NAATon 0 04-29-2024 Lactobacillus crispatus+gasseri+reyna senii + Gardnerella vaginalis + Atopobium vaginae rRNA WILLEM+probe Ql (Vag fld) Not detected Normal Not detected [facility] Comment on above: Order Comment: Speci men Type: SWABOrdering Facility: [facility] Address: [address] [place] [address] Performed By: #### 3 6902-5, BVAMP ####[facility] LABCLIA [id number] [facility] [id number] [address] [place] Bacteria Ur Culton 5 Bacteria identified Cx Nom (U) ORGANISM ID: 1 10,000 -<50,000 CFU/ml Mixed microbiota No further workup. Mixed microbiota can be due to???urine???contamina tion with skin bacteria at time of collection or presence of a long-term urinary catheter. If a new culture is needed, please consider re-education of the patient on proper midstream collection technique or straight catheterization for???urine???collecti on. Normal [facility] Comment on above: Performed By: #### 6 30-4 #### [facility] CLIA [id number] [facility] [place] [address] [place] C. trachomatis+N. gonorrhoea e DNA WILLEM+probe Ql (Unsp spec)on 04-29-2024 C. trachomatis rRNA WILLEM+probe Ql (Unsp spec) Not detected Normal Not detected [facility] Comment on above: Order Comment: Speci men Type: SWABOrdering Facility: [facility] Address: [address] [place] [address] Performed By: #### 3 6902-5, BVAMP ####[facility] LABCLIA [id number] [place] [address] [place] N. gonorrhoeae rRNA WILLEM+probe Ql (Unsp spec) Not detected Normal Not detected [facility] Comment on above: Order Comment: Speci men Type: SWABOrdering Facility: [facility] Address: [address] [place] [address] Performed By: #### 3 6902-5, BVAMP ####[facility] LABCLIA [id number] [place] [address] [place] GEORGIANA/TRICHOMONAS NAATon 0 04-29-2024 C. glabrata RNA WILLEM+probe Ql (Vag fld) Not detected Normal Not detected [facility] Comment on above: Order Comment: Speci men Type: BLOOD SPECIMEN Ordering Facility: [facility] Address: [address] [place] [address] Performed By: #### 6 948-4 #### [facility] CLIA [id number] [address] [place] [address] [place] Georgiana sp DNA WILLEM+probe Ql (Vag fld) Not detected Normal Not detected [facility] Comment on above: Order Comment: Speci men Type: BLOOD SPECIMEN Ordering Facility: [facility] Address: [address] [place] [address] Result Comment: The Georgiana species group target includes C. albicans, C. tropicalis, C. parapsilosis, and C. dubliniensis. Performed By: #### 6 948-4 #### [facility] CLIA [id number] [address] [place] [address] [place] T. vaginalis DNA WILLEM+probe Ql (Unsp spec) Not detected Normal Not detected [facility] Comment on above: Order Comment: Speci men Type: BLOOD SPECIMEN Ordering Facility: [facility] Address: [address] [place] [address] Performed By: #### 6 948-4 #### [facility] CLIA [id number] [address] [place] [address] [place] CNOVon 04-29-2024 CNOV Office Visit (OBGYWM ) FABIAN MENJIVAR ([id number]) 2 F Date Time Provider Department 04/29/24 8:15 AM ELIGIO DIEZ OBDONYAWTavia During your visit today, we recorded the following information about you: Blood pressure Weight 114/70 89.4 kg Eligio Diez APRN.VENEER MATCHER 04/29/2024 8:29 AM Signed Gasket Inspector offered: Patient declines. Fabian Menjivar is a 23 year old female who presents for problem visit for a test of cure. HPI: Fabian presents for a test of cure. She was positive for Chlamydia on 02/16/2024. Reports that she has had urinary frequency and some discomfort to the perineum. Had intercourse yesterday and wondering if she tore. 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 History LMP: 02/09/2024 (Exact Date), Having periods Age at Menarche: Age at First : Age at Menopause: Dog License Officer Supervisor History Comments: Sexual Activity: Yes; Male Contraception: Condom, Pill PAST MEDICAL HISTORY Diagnosis Date Anxiety and depression Bipolar 2 disorder (HCC) Brain tumor (HCC) Chlamydia 02/17/2024 Depression Family history of seizure disorder Hiatal hernia History of heavy periods 2014 Low back strain 10/2015 [facility] PT Obesity (BMI 30-39.9) 10/23/2022 OCD (obsessive compulsive disorder) PMH - PAST MEDICAL HISTORY OF 2006 normal color vision Seizures (HCC) Trichomoniasis 10/2023 PAST SURGICAL HISTORY Procedure Laterality Date BRAIN SURGERY HX 10/25/2022 EGD 08/28/2020 Hiatal hernia, Variable villous abnormality with associated epithelial lymphocytosis, Gastric oxyntic-type mucosa with no pathologic diagnostic abnormality KNEE SURGERY HX Right 2020 ACL repair KNEE SURGERY HX Right Scar tissue removal PAST SURGICAL HISTORY OF Left ACL repair FAMILY HISTORY Problem Relation Age of Onset No Known Problems Mother No Known Problems Father No Known Problems Sister No Known Problems Brother Heart Maternal Uncle Enlarged heart other (Anneurism) Maternal Grandmother Heart Maternal Grandfather age 62 [place] No Known Problems Paternal Grandmother No Known Problems Paternal Grandfather Diabetes Other mggfa Cancer Other MGGF Anesthesia Problems No Family History Social History Tobacco Use Smoking status: Never Smokeless tobacco: Never Vaping Use Vaping status: Some Days Substances: Nicotine, Flavoring Devices: Disposable Substance Use Topics Alcohol use: Yes Alcohol/week: 3.0 standard drinks of alcohol Types: 3 Standard drinks or equivalent per week Drug use: Yes Frequency: 2.0 times per week Types: Marijuana Current Outpatient Medications Medication Sig Drospirenone-Ethinyl Estradiol (LORYNA, 28,) 3-0.02 mg per tablet Take 1 tablet by mouth once daily. desvenlafaxine ER (PRISTIQ) 100 mg 24 hr tablet Take 1 tablet by mouth daily with breakfast. ARIPiprazole (ABILIFY) 2 mg tablet Take 1 tablet by mouth once daily. pantoprazole DR (PROTONIX) 40 mg tablet Take 1 tablet by mouth once daily. dicyclomine (BENTYL) 10 mg capsule TAKE 1 CAPSULE BY MOUTH BEFORE DINNER. MAY REPEAT AT BEDTIME NEEDED. triamcinolone (KENALOG IN ORABASE) 0.1 % paste Apply to the apthous ulcer TID for 5 days clonazePAM orally disintegrating (KLONOPIN WAFER) 0.5 mg disintegrating tablet Take 1 tablet by mouth as needed (As needed for auras) for up to 30 days. Do not take more than 2 tablets in 24 hours. levETIRAcetam (KEPPRA) 500 mg tablet Take 1 tablet by mouth two times a day. lamoTRIgine (LAMICTAL) 100 mg tablet Take 1 tablet by mouth two times a day. midazolam (NAYZILAM) 5 mg/spray (0.1 mL) nasal spray Use 1 spray in one nostril as needed for seizures lasting > 5 minutes or >=3 seizures in 8 hours. May repeat dose in alternate nostril after 10 minutes based on response and tolerability. folic acid 1 mg tablet Take 1 tablet by mouth once daily. No current facility-administered medications for this visit. Allergies As of Date: 04/29/2024 (No Known Allergies) Fully Assessed 04/29/2024 REVIEW OF SYSTEMS Bladder: No dysuria, gross hematuria, urinary urgency, or incontinence. + urinary frequncy Expanded ROS: PRINT PRODUCTION COORDINATOR: + vaginal discomfort Allergies and current medication updated:Yes SENSITIVE EXAM: The sensitive examination was discussed with the Patient or Patient's Authorized Collections Professional. As applicable, any other physician, advance practice provider, medical student, or other health professional student that will be observing or involved in the sensitive examination for educational or training purposes was discussed with the Patient or Authorized Collections Professional. The Patient or Authorized Collections Professional has agreed to proceed with the sensitive examination. (Sensitive examination includes inspection and/or palpation of the breasts, pelvis, prostate and anorectal regions). EXAM: BP 114/70 Wt 197 lb (89.4kg (more content not included)... [facility] (OBGYWM) FABIAN MENJIVAR ([id number]) 2 F Date Time Provider Department 02/17/24 CAROL HAMILTON OBGYWM During your visit today, we recorded the following information about you: Carol Hamilton APRN.CNP 02/17/2024 8:42 AM Signed +chlamydia- Rx sent Michelle Lancaster RN 02/17/2024 10:08 AM Signed Left message to call office. Health department form filled out and in nurse triage to fax once patient is notified. DENIS Saucedo Lindsey, RN 02/17/2024 10:31 AM Signed Patient notified of results, verbalizes understanding of instructions. Health department form faxed. Patient is back at school now, can you please resend Rx to updated pharmacy? DENIS Saucedo Renee, APRN.CNP 02/17/2024 11:26 AM Signed RX resent. Carol Hamilton APRN.CNP Allergies As of Date: 02/17/2024 (No Known Allergies) Date Reviewed: 02/16/2024 Reviewed by: Zaynab Fitzgerald MA - Fully Assessed Reason for Visit: Results [95] STD [102] Order(s):doxycycline hyclate (VIBRAMYCIN) 100 mg capsuleTake 1 capsule (100 mg) by mouth two times a day for 7 days.Disp: 14 capsuleRfl: 0 Prescriptions as of 02/17/2024 - doxycycline hyclate (VIBRAMYCIN) 100 mg capsule Take 1 capsule (100 mg) by mouth two times a day for 7 days. - Drospirenone-Ethinyl Estradiol (LORYNA, 28,) 3-0.02 mg per tablet Take 1 tablet by mouth once daily. - triamcinolone (KENALOG IN ORABASE) 0.1 % paste Apply to the apthous ulcer TID for 5 days - mupirocin (BACTROBAN) 2 % ointment Apply topically to the left nostril TID for 14 days - pantoprazole DR (PROTONIX) 40 mg tablet Take 1 tablet by mouth once daily. - folic acid 1 mg tablet Take 1 tablet by mouth once daily. - clonazePAM orally disintegrating (KLONOPIN WAFER) 0.5 mg disintegrating tablet Take 1 tablet by mouth as needed (As needed for auras) for up to 30 days. Do not take more than 2 tablets in 24 hours. - levETIRAcetam (KEPPRA) 500 mg tablet Take 1 tablet by mouth two times a day. - lamoTRIgine (LAMICTAL) 100 mg tablet Take 1 tablet by mouth two times a day. - venlafaxine ER (EFFEXOR XR) 75 mg 24 hr capsule Take 1 capsule by mouth once daily. - dicyclomine (BENTYL) 10 mg capsule TAKE 1 CAPSULE BY MOUTH BEFORE DINNER. MAY REPEAT AT BEDTIME NEEDED. - midazolam (NAYZILAM) 5 mg/spray (0.1 mL) nasal spray Use 1 spray in one nostril as needed for seizures lasting > 5 minutes or >=3 seizures in 8 hours. May repeat dose in alternate nostril after 10 minutes based on response and tolerability. Meds Comments as of 11/08/2020: 11/08/20 states taking no medication. Afshan Sanabria RN Problem List As Of Date 02/17/2024 Noted Resolved Generalized anxiety disorder [F41.1] 02/06/2020 Celiac disease [K90.0] 09/22/2020 Hiatal hernia [K44.9] 09/22/2020 Rupture of anterior cruciate ligament of right *09/22/2020 S/P right knee arthroscopically-ladi gabi anteri*10/13/2020 OPENED IN ERROR 12/31/2021 12/31/2021 Spells of decreased attentiveness [R68.89] 02/21/2022 Bipolar 2 disorder (HCC) [F31.81] 03/25/2022 Mixed obsessional thoughts and acts [F42.2] 03/25/2022 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) [*04/15/2022 Seizure-like activity (HCC) [R56.9] 07/01/2022 Obesity, Class I, BMI 30-34.9 [E66.811] 07/01/2022 10/09/2022 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] 03/18/2022 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 DOXYCYCLINE HYCLATE 100 MG CAPSULE 14 c* 0 02/17/2024 02/24/2024 Route: ORAL Sig: Take 1 capsule (100 mg) by mouth two times a day for 7 days. Medications Discontinued During This Encounter Prescriptions - doxycycline hyclate (VIBRAMYCIN) 100 mg capsule (Discontinued) Take 1 capsule (100 mg) by mouth two times a day for 7 days. Encounter Status:Closed by CAROL HAMILTON on 02/17/24 Normal [facility] C. trachomatis+N. gonorrhoea e DNA WILLEM+probe Ql (Unsp spec)on 02-16-2024 C. trachomatis rRNA WILLEM+probe Ql (Unsp spec) Positive Abnormal Negative for Chlamydia trachomatis by amplificaton [facility] Comment on above: Order Comment: Speci men Type: BLOOD SPECIMEN Ordering Facility: [facility] Address: [address] [place] [address] Performed By: #### 6 948-4 #### [facility] CLIA [id number] [address] [place] [address] [place] N. gonorrhoeae rRNA WILLEM+probe Ql (Unsp spec) Negative Normal Negative for Neisseria gonorrhoeae by amplification [facility] Comment on above: Order Comment: Speci men Type: BLOOD SPECIMEN Ordering Facility: [facility] Address: [address] [place] [address] Performed By: #### 6 948-4 #### [facility] CLIA [id number] [address] [place] [address] [place] CBC panel Auto (Bld)on 02-15 Erythrocyte distribution width (RBC) [Ratio] 13.4 % Normal 11.5-15.0 [facility] Comment on above: Order Comment: Speci men Type: BLOOD SPECIMENOrdering Facility: [facility] Address: [address] [place] [address] Performed By: #### 5 8410-2 ####[facility]AST[facility]I [id number] [address] OF [place] Hematocrit (Bld) [Volume fraction] 39.1 % Normal 36.0-46.0 [facility] Comment on above: Order Comment: Speci men Type: BLOOD SPECIMENOrdering Facility: [facility] Address: [address] [place] [address] Performed By: #### 5 8410-2 ####[facility] [id number] [address] OF [place] Hemoglobin (Bld) [Mass/Vol] 13.4 g/dL Normal 11.5-15.5 [facility] Comment on above: Order Comment: Speci men Type: BLOOD SPECIMENOrdering Facility: [facility] Address: [address] [place] [address] Performed By: #### 5 8410-2 ####[facility] [id number] [place] [address] [place] MCH (RBC) [Entitic mass] 29.6 pg Normal 26.0-34.0 [facility] Comment on above: Order Comment: Speci men Type: BLOOD SPECIMENOrdering Facility: [facility] Address: [address] [place] [address] Performed By: #### 5 8410-2 ####[facility] [id number] [place] [address] [place] MCHC (RBC) [Mass/Vol] 34.3 g/dL Normal 30.5-36.0 [facility] Comment on above: Order Comment: Speci men Type: BLOOD SPECIMENOrdering Facility: [facility] Address: [address] [place] [address] Performed By: #### 5 8410-2 ####[facility] [id number] [place] [address] [place] MCV (RBC) [Entitic vol] 86.5 fL Normal 80.0-100.0 [facility] Comment on above: Order Comment: Speci men Type: BLOOD SPECIMENOrdering Facility: [facility] Address: [address] [place] [address] Performed By: #### 5 8410-2 ####[facility] [id number] [place] [address] [place] Nucleated RBC (Bld) [#/Vol] 10*3/uL Normal <0.01 [facility] Comment on above: Order Comment: Speci men Type: BLOOD SPECIMENOrdering Facility: [facility] Address: [address] [place] [address] Performed By: #### 5 8410-2 ####[facility] [facility] [id number] [place] [address] [place] Platelet mean volume (Bld) [Entitic vol] 9.4 fL Normal 9.0-12.7 [facility] Comment on above: Order Comment: Speci men Type: BLOOD SPECIMENOrdering Facility: [facility] Address: [address] [place] [address] Performed By: #### 5 8410-2 ####[facility] [id number] [place] [address] [place] Platelets (Bld) [#/Vol] 392 10*3/uL Normal 150-400 [facility] Comment on above: Order Comment: Speci men Type: BLOOD SPECIMENOrdering Facility: [facility] Address: [address] [place] [address] Performed By: #### 5 8410-2 ####[facility] FLOYDKNOX CITYNCLIA [id number] [place] [address] [place] RBC (Bld) [#/Vol] 4.52 10*6/uL Normal 3.90-5.20 [facility] Comment on above: Order Comment: Speci men Type: BLOOD SPECIMENOrdering Facility: [facility] Address: [address] [place] [address] Performed By: #### 5 8410-2 ####[facility] [id number] [place] [address] [place] WBC (Bld) [#/Vol] 8.48 10*3/uL Normal 3.70-11.00 [facility] Comment on above: Order Comment: Speci men Type: BLOOD SPECIMENOrdering Facility: [facility] Address: [address] [place] [address] Performed By: #### 5 8410-2 ####[facility] [id number] [place] [address] [place] CNOVon 02-16-2024 CNOV Office Visit (PEDSWS ) FABIAN MENJIVAR ([id number]) 2 F Date Time Provider Department 02/16/24 11:00 AM DIONTE FU PEDJOCELIN During your visit today, we recorded the following information about you: Temperature Pulse Respiration Blood pressure 97 degrees 84/minute 16/minute 118/74 Weight 91 kg Dionte Fu MD 02/24/2024 1:34 PM Signed Fabian Menjivar is a 23-year-old female with several complex problems, including celiac disease, who presents to the office today with gastrointestinal complaints. Patient reports for the last several months she will have reimbursement specialist emesis. Nonbloody. History does not suggest that is bilious. She states she also has lost appetite. She has consistent daily symptoms of nausea with occasional abdominal discomfort that she localizes to the lower quadrants. This is relieved when she has emesis. She states alcohol makes her symptoms much worse. Additionally anxiety makes this worse. She cannot identify any specific food triggers. She denies dysphagia or odynophagia. 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) Focal Seizure With Experiential Sensory Symptoms (Hcc) Depression Obesity (Bmi 30-39.9) 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) Obesity, Class II, Bmi 35-39.9 Midline Shift of Brain Lgsil On Pap Smear of Cervix PAST MEDICAL HISTORY Diagnosis Date Anxiety and depression Bipolar 2 disorder (HCC) Brain tumor (HCC) Chlamydia 02/17/2024 Depression Family history of seizure disorder Hiatal hernia History of heavy periods 2015 Low back strain 10/2015 [facility] Obesity (BMI 30-39.9) 10/23/2022 OCD (obsessive compulsive disorder) PMH - PAST MEDICAL HISTORY OF 2006 normal color vision Seizures (HCC) Trichomoniasis 10/2023 PAST SURGICAL HISTORY Procedure Laterality Date BRAIN SURGERY HX 10/25/2022 EGD 08/28/2020 Hiatal hernia, Variable villous abnormality with associated epithelial lymphocytosis, Gastric oxyntic-type mucosa with no pathologic diagnostic abnormality KNEE SURGERY HX Right 2020 ACL repair KNEE SURGERY HX Right Scar tissue removal PAST SURGICAL HISTORY OF Left ACL repair ALLERGIES No Known Allergies 02/16/24 1058 BP: 118/74 Pulse: 84 Resp: 16 Temp: 36.1 ?C (97 ?F) TempSrc: Temporal Weight: 91 kg (200 lb 9.6 oz) GENERAL: alert and active in no apparent distress, nontoxic-appearing HEAD: Normocephalic, atraumatic EYES: No scleral icterus NOSE: Weepy honey crusted lesions in the left nares OROPHARYNX:moist mucous membranes, tonsils without hypertrophy and no exudates present. 1 oral aphthous ulcer is present. NECK: Negative for anterior or posterior cervical adenopathy. No masses are present in the suprasternal notch. No supraclavicular adenopathy is present. CARDIOVASCULAR : Regular Rate and Rhythm without murmurs or clicks, well perfused LUNGS: clear to auscultation, excellent air exchange, easy respirations without grunting/flaring/retra cting. ABDOMEN : Abdomen is nondistended. Mild epigastric tenderness. No guarding or rebound. Bowel sounds are intact in all 4 quadrants. MUSCULOSKELETAL: Extremities with FROM and no problems identified. EXTREMITIES: Capillary refill is 1 second. No clubbing, cyanosis, or edema. NEUROLOGICAL : Muscle tone normal and Normal age appropriate gait SKIN : Negative for jaundice. Negative for petechiae or purpura. Normal skin turgor Latest Ref Rng 02/16/2024 GLUCOSE UA (POCT) Negative mg/dL Negative BILIRUBIN UA (POCT) Negative Negative KETONE UA (POCT) Negative mg/dL Negative SPECIFIC GRAVITY UA (POCT) 1.005 - 1.030 1.010 HEMOGLOBIN/BLOOD UA (POCT) Negative Negative PH UA (POCT) 4.5 - 8.0 6.5 PROTEIN UA (POCT) Negative mg/dL Negative UROBILINOGEN UA (POCT) Normal E.U./dL 0.2 NITRITE UA (POCT) Negative Negative LEUKOCYTES UA (POCT) Negative Trace ! COLOR UA (POCT) Yellow CLARITY UA (POCT) Clear Urine hCG (POCT) Negative Negative Core Machine Tender (POCT) Internal QC OK Legend: ! Abnormal ASSESSMENT/PLAN: 1. Gastroesophageal reflux disease, unspecified whether esophagitis present - ICD9: 530.81, ICD10: K21.9 (primary diagnosis) - PANTOPRAZOLE 40 MG TABLET,DELAYED RELEASE 2. Aphthous, ul (more content not included)... Normal [facility] CNOV Office Visit (OBGYWM ) FABIAN MENJIVAR ([id number]) 2 F Date Time Provider Department 02/16/24 10:15 AM ELIGIO DIEZ OBGYWM During your visit today, we recorded the following information about you: Blood pressure Weight Height Last Period 122 91.2 kg 1.63 m 02/09/24 Eligio Diez APRN.VENEER MATCHER 02/16/2024 10:38 AM Signed Gasket Inspector offered: Patient declines. Fabian is a 23 year old who presents for an annual gynecologic exam without complaints. 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 Menses: cycles every 28- 30 days and 5-7 days of flow. Contraception: Loryna HPV vaccine: Yes Last Pap: 01/03/2023 LSIL HPV: N/A History of abnormal pap: Yes Last mammogram: never Sexually active: Yes History of STDS: trich Patient concerns for STD exposure: No. 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 History Comments: Sexual Activity: Yes; Male Contraception: Condom, Pill PAST MEDICAL HISTORY Diagnosis Date Anxiety and depression Bipolar 2 disorder (HCC) Brain tumor (HCC) Depression Family history of seizure disorder Hiatal hernia History of heavy periods 2014 Low back strain 10/2015 [facility]/ PT Obesity (BMI 30-39.9) 10/23/2022 OCD (obsessive compulsive disorder) PMH - PAST MEDICAL HISTORY OF 2006 normal color vision Seizures (HCC) Trichomoniasis PAST SURGICAL HISTORY Procedure Laterality Date BRAIN SURGERY HX 10/25/2022 EGD 08/28/2020 Hiatal hernia, Variable villous abnormality with associated epithelial lymphocytosis, Gastric oxyntic-type mucosa with no pathologic diagnostic abnormality KNEE SURGERY HX Right 2020 ACL repair KNEE SURGERY HX Right Scar tissue removal PAST SURGICAL HISTORY OF Left ACL repair FAMILY HISTORY Problem Relation Age of Onset No Known Problems Mother No Known Problems Father No Known Problems Sister No Known Problems Brother Heart Maternal Uncle Enlarged heart other (Anneurism) Maternal Grandmother Heart Maternal Grandfather age 62 [place] No Known Problems Paternal Grandmother No Known Problems Paternal Grandfather Diabetes Other mggfa Cancer Other MGGF Anesthesia Problems No Family History SOCIAL HISTORY Social History Tobacco Use Smoking status: Never Smokeless tobacco: Never Vaping Use Vaping status: Some Days Substances: Nicotine, Flavoring Devices: Disposable Substance Use Topics Alcohol use: Yes Alcohol/week: 3.0 standard drinks of alcohol Types: 3 Standard drinks or equivalent per week Drug use: Yes Frequency: 2.0 times per week Types: Marijuana REVIEW OF SYSTEMS Abdomen: No abdominal pain, nausea, vomiting, diarrhea, or constipation. No bloating, early satiety, indigestion, or increased flatulence. Bladder: No dysuria, gross hematuria, urinary frequency, urinary urgency, or incontinence. Breast: No breast lumps, nipple d/c, overlying skin changes, redness or skin retraction. Allergies and current medication updated:Yes SENSITIVE EXAM: The sensitive examination was discussed with the Patient or Patient's Authorized Collections Professional. As applicable, any other physician, advance practice provider, medical student, or other health professional student that will be observing or involved in the sensitive examination for educational or training purposes was discussed with the Patient or Authorized Collections Professional. The Patient or Authorized Collections Professional has agreed to proceed with the sensitive examination. (Sensitive examination includes inspection and/or palpation of the breasts, pelvis, prostate and anorectal regions). EXAM: BP 122/70 Ht 5' 4.173 (1.63m) Wt 201 lb (91.2kg) LMP 02/09/2024 BMI 34.32 kg/(m2). GENERAL: pleasant, female in no apparent distress HEENT: Normocephalic, atraumatic, mucus membranes moist, and no lesions NECK: Supple, full range of motion, no adenopathy, and thyroid normal DERMATOLOGY: Normal, without lesions, non-icteric, and non-hirsute BREAST: soft, non-tender, symmetric, no dominant mass, normal nipple-areolar complex, no lymphadenopathy, and no nipple discharge CHEST: Normal inspiratory effort ABDOMEN: soft, non-tender, and no masses PELVIC: external genitalia normal, normal Bartholin's glands, urethra, Kamaili's glands, no vulvar lesions, no cervical lesions, good vaginal support, physiologic discharge present, normal appearing perineal body and perianal region BIMANUAL: uterus normal size, shape and consistency, no adnexal masses, and non-tender RECTOVAGINAL: deferred. NEURO: alert and oriented x3,exam grossly non-focal EXTREMITIES: normal ASSESSMENT/PLAN: 1) Health main (more content not included)... Normal [facility] Comprehensive metabolic 2000 panelon 02-16-2024 Albumin [Mass/Vol] 4.3 g/dL Normal 3.9-4.9 [facility] Comment on above: Order Comment: Speci men Type: BLOOD SPECIMEN Ordering Facility: [facility] Address: [address] [place] [address] Performed By: #### 6 948-4 #### [facility] CLIA [id number] [address] [place] [address] [place] ALP [Catalytic activity/Vol] 42 U/L Normal 34-123 [facility] Comment on above: Order Comment: Speci men Type: BLOOD SPECIMEN Ordering Facility: [facility] Address: [address] [place] [address] Performed By: #### 6 948-4 #### [facility] CLIA [id number] [address] [place] [address] [place] ALT [Catalytic activity/Vol] 32 U/L Normal 7-38 [facility] Comment on above: Order Comment: Speci men Type: BLOOD SPECIMEN Ordering Facility: [facility] Address: [address] [place] [address] Performed By: #### 6 948-4 #### [facility] CLIA [id number] [address] [place] [address] [place] Anion gap [Moles/Vol] 11 mmol/L Normal 8-15 [facility] Comment on above: Order Comment: Speci men Type: BLOOD SPECIMEN Ordering Facility: [facility] Address: [address] [place] [address] Performed By: #### 6 948-4 #### [facility] CLIA [id number] [address] [place] [address] [place] AST [Catalytic activity/Vol] 26 U/L Normal 13-35 [facility] Comment on above: Order Comment: Speci men Type: BLOOD SPECIMEN Ordering Facility: [facility] Address: [address] [place] [address] Performed By: #### 6 948-4 #### [facility] CLIA [id number] [address] [place] [address] [place] Bilirubin [Mass/Vol] 0.3 mg/dL Normal 0.2-1.3 [facility] Comment on above: Order Comment: Speci men Type: BLOOD SPECIMEN Ordering Facility: [facility] Address: [address] [place] [address] Performed By: #### 6 948-4 #### [facility] CLIA [id number] [address] [place] [address] [place] Calcium [Mass/Vol] 9.6 mg/dL Normal 8.5-10.2 [facility] Comment on above: Order Comment: Speci men Type: BLOOD SPECIMEN Ordering Facility: [facility] Address: [address] [place] [address] Performed By: #### 6 948-4 #### [facility] CLIA [id number] [address] [place] [address] [place] Chloride [Moles/Vol] 104 mmol/L Normal 98-107 [facility] Comment on above: Order Comment: Speci men Type: BLOOD SPECIMEN Ordering Facility: [facility] Address: [address] [place] [address] Performed By: #### 6 948-4 #### [facility] CLIA [id number] [address] [place] [address] [place] CO2 [Moles/Vol] 21 mmol/L Low 22-30 [facility] Comment on above: Order Comment: Speci men Type: BLOOD SPECIMEN Ordering Facility: [facility] Address: [address] [place] [address] Performed By: #### 6 948-4 #### [facility] CLIA [id number] [address] [place] [address] [place] Creatinine [Mass/Vol] 0.65 mg/dL Normal 0.58-0.96 [facility] Comment on above: Order Comment: Speci men Type: BLOOD SPECIMEN Ordering Facility: [facility] Address: [address] [place] [address] Performed By: #### 6 948-4 #### [facility] CLIA [id number] [address] [place] [address] [place] [facility] Creatinine and Glomerular filtration rate.predicted panel (S/P/Bld) 128 mL/min/1.73m??? Normal >=60 [facility] Comment on above: Order Comment: Speci men Type: BLOOD SPECIMEN Ordering Facility: [facility] Address: [address] [place] [address] Result Comment: Ophelia mated Glomerular Filtration Rate (eGFR) is calculated using the 2020 CKD-EPI creatinine equation. This equation utilizes serum creatinine, sex, and age as parameters. The creatinine assay has traceable calibration to isotope dilution-mass spectrometry. Refer to KDIGO guidelines for clinical interpretation. In patients with unstable renal function, e.g. those with acute kidney injury, the eGFR may not accurately reflect actual GFR. Performed By: #### 6 948-4 #### [facility] CLIA [id number] [address] [place] [address] [place] Glucose [Mass/Vol] 95 mg/dL Normal 74-99 [facility] Comment on above: Order Comment: Speci men Type: BLOOD SPECIMEN Ordering Facility: [facility] Address: [address] [place] [address] Result Comment: The [place] [employer] (ADA) provides guidance for cutoff values for fasting glucose and random glucose. The ADA defines fasting as no caloric intake for at least 8 hours. Fasting plasma glucose results between 100 to 125 mg/dL indicate increased risk for diabetes (prediabetes). Fasting plasma glucose results greater than or equal to 126 mg/dL meet the criteria for diagnosis of diabetes. In the absence of unequivocal hyperglycemia, results should be confirmed by repeat testing. In a patient with classic symptoms of hyperglycemia or hyperglycemic crisis, random plasma glucose results greater than or equal to 200 mg/dL meet the criteria for diagnosis of diabetes. Reference: Standards of Medical Care in Diabetes 2016, [place] [employer] Association. Diabetes Care. 2016.39(Suppl 1). Performed By: #### 6 948-4 #### [facility] CLIA [id number] [address] [place] [address] [place] Potassium [Moles/Vol] 4.1 mmol/L Normal 3.7-5.1 [facility] Comment on above: Order Comment: Speci men Type: BLOOD SPECIMEN Ordering Facility: [facility] Address: [address] [place] [address] Performed By: #### 6 948-4 #### [facility] CLIA [id number] [address] [place] [address] [place] Protein [Mass/Vol] 7.3 g/dL Normal 6.3-8.0 [facility] Comment on above: Order Comment: Speci men Type: BLOOD SPECIMEN Ordering Facility: [facility] Address: [address] [place] [address] Performed By: #### 6 948-4 #### [facility] CLIA [id number] [address] [place] [address] [place] Sodium [Moles/Vol] 136 mmol/L Normal 136-144 [facility] Comment on above: Order Comment: Speci men Type: BLOOD SPECIMEN Ordering Facility: [facility] Address: [address] [place] [address] Performed By: #### 6 948-4 #### [facility] CLIA [id number] [address] [place] [address] [place] Urea nitrogen [Mass/Vol] 7 mg/dL Normal - [facility] Comment on above: Order Comment: Speci men Type: BLOOD SPECIMEN Ordering Facility: [facility] Address: [address] [place] [address] Performed By: #### 6 948-4 #### [facility] CLIA [id number] [address] [place] [address] [place] HBV surface Ag Ser Qlon 01-27 HBV surface Ag Ql (S) Negative Normal Negative [facility] Comment on above: Order Comment: Speci men Type: BLOOD SPECIMEN Ordering Facility: [facility] Address: [address] [place] [address] Performed By: #### 6 948-4 #### [facility] CLIA [id number] [address] [place] [address] [place] HCV Ab Ser Qlon 02-16-2024 HCV Ab Ql (S) Negative Normal Negative [facility] Comment on above: Order Comment: Speci men Type: BLOOD SPECIMEN Ordering Facility: [facility] Address: [address] [place] [address] Result Comment: The result suggests no evidence of active infection with Hepatitis C virus. Should recent infection be suspected, repeat testing may be considered 4-6 weeks after this draw. Performed By: #### 6 948-4 #### [facility] CLIA [id number] [address] [place] [address] [place] HIV 1+2 Ab IA Qlon HIV 1 and 2 Ab IA.rapid Nom (S/P/Bld) Normal [facility] Comment on above: Order Comment: Speci men Type: BLOOD SPECIMENOrdering Facility: [facility] Address: [address] [place] [address] Result Comment: Test not indicated. Performed By: #### 5 195-3, 60331-0, 60524-1 ####[facility] [id number] [place] [address] [place] HIV 1+2 Ab+HIV1 p24 Ag IA Ql Non-Reactive Normal Nonreactive [facility] Comment on above: Order Comment: Speci men Type: BLOOD SPECIMENOrdering Facility: [facility] Address: [address] [place] [address] Performed By: #### 5 195-3, 42354-7, 31268-1 ####[facility] [id number] [place] [address] [place] HIV immunoassay testing algorithm interpretation (S/P/Bld) [Interp] Normal [facility] Comment on above: Order Comment: Speci men Type: BLOOD SPECIMENOrdering Facility: [facility] Address: [address] [place] [address] Result Comment: No e vidence of HIV-1 or HIV-2 infection. Should recent infection be suspected, repeat testing may be considered 2-3 weeks after this draw. [place] Rev. Code 3701.243(E): This information has been disclosed to you from confidential records protected from disclosure by state law. ???You shall make no further disclosure of this information without the specific, written, and informed release of the individual to whom it pertains or as otherwise permitted by state law. A general authorization for the release of medical or other information is not sufficient for the purpose of the release of HIV test results or diagnoses. Performed By: #### 5 195-3, 10664-0, 97222-5 ####[facility] [id number] [place] [id number] [place] PAP TESTon 02-16-2024 ADEQUACY Normal [facility] Comment on above: Order Comment: Speci men Type: FLUID SPECIMENOrdering Facility: [facility] Address: [address] [place] [address] Result Comment: Sati sfactory for interpretation. No endocervical component Performed By: #### L [id number] ####[facility] [id number] [place] [address] [place] [facility] [id number] [place] [address] [place] CASE REPORT Normal [facility] Comment on above: Order Comment: Speci men Type: FLUID SPECIMENOrdering Facility: [facility] Address: [address] [place] [address] Result Comment: Gyne cologic Cytology Report Case: [id number] Authorizing Provider: Eligio Diez APRN.VENEER MATCHER Collected: 02/16/2024 10:36 AM Ordering Location: OB/Gynecology Received: 02/16/2024 11:41 AM First Screen: Estefanía Tapia, CT, ASCP Pathologist: Torri Kiser MD Specimen: Pap Test, ThinPrep, Cervix Performed By: #### L [id number] ####[facility]OR[facility]ORYCLIA [id number] [place] [address] [place] [facility] [id number] [place] [address] [place] CLINICAL HISTORY, CYTOLOGY, PRINT PRODUCTION COORDINATOR Previous Abnormal Pap Normal [facility] Comment on above: Order Comment: Speci men Type: FLUID SPECIMENOrdering Facility: [facility] Address: [address] [place] [address] Performed By: #### L [id number] ####[facility]ORYCLIA [id number] [place] [address] [place] [facility] [id number] [place] [address] [place] FINAL PERFORMING LAB Normal [facility] Comment on above: Order Comment: Speci men Type: FLUID SPECIMENOrdering Facility: [facility] Address: [address] [place] [address] Result Comment: Tech nical component, chin strap sewer screening performed at [facility], [address] [place] [address] CLIA# [id number] Diagnostic interpretation performed at [facility], [address] [facility], [place] [id number] CLIA# [id number] Graphic Editor: Sugar Lawton M.D. Performed By: #### L [id number] ####[facility]ORATORYCLIA [id number] [address] STATES OF [facility] LABCLIA [id number] [place] [address] [place] HPV REFLEX HPV if Atypical Normal [facility] Comment on above: Order Comment: Speci men Type: FLUID SPECIMENOrdering Facility: [facility] Address: [address] [place] [address] Performed By: #### L [id number] ####[facility] LABORATORYCLIA [id number] [address] STATES [facility] LABCLIA [id number] [place] [address] [place] INTERPRETATION, CYTOLOGY, PRINT PRODUCTION COORDINATOR Abnormal [facility] Comment on above: Order Comment: Speci men Type: FLUID SPECIMENOrdering Facility: [facility] Address: [address] [place] [address] Result Comment: Low grade squamous intraepithelial lesion (LSIL). Performed By: #### L [id number] ####[facility] LABORATORYCLIA [id number] [address] STATES [facility] LABCLIA [id number] [place] [address] [place] LMP 02/09/2024 Normal [facility] Comment on above: Order Comment: Speci men Type: FLUID SPECIMENOrdering Facility: [facility] Address: [address] [place] [address] Performed By: #### L [id number] ####[facility] LABORATORYCLIA [id number] LABCLIA [id number] [place] [address] [place] PAP DISCLAIMER COMMENT The Pap Smear is a screening test for cervical cancer. False negative results occur with all screening tests, emphasizing the need for rescreening at recommended intervals, and clinical correlation. Normal [facility] Comment on above: Order Comment: Speci men Type: FLUID SPECIMENOrdering Facility: [facility] Address: [address] [place] [address] Performed By: #### L [id number] ####[facility]ATORYCLIA [id number] [address] LABCLIA [id number] [place] [address] [place] PAP GENERAL CATEGORIZATION Epithelial Cell Abnormality Normal [facility] Comment on above: Order Comment: Speci men Type: FLUID SPECIMENOrdering Facility: [facility] Address: [address] [place] [address] Performed By: #### L [id number] ####[facility]ATORYCLIA [id number] [address] LABCLIA [id number] [place] [address] [place] PAP FARM SERVICE CONSULTANT COMMENT This specimen has be en analyzed by the ThinPrep Imaging System, an automated imaging and review system, which assists the laboratory in evaluating cells on ThinPrep Pap tests. Following automated imaging, selected montelongo from every slide are reviewed by a chin strap sewer. Normal [facility] Comment on above: Order Comment: Speci men Type: FLUID SPECIMENOrdering Facility: [facility] Address: [address] [place] [address] Performed By: #### L [id number] ####[facility]ORYCLIA [id number] [address] LABCLIA [id number] [place] [address] [place] Reagin and Treponema pallidu m IgG and IgM [Interp]on 02-16-2024 T. pallidum IgG+IgM IA Ql (S) Non-Reactive Normal Nonreactive [facility] Comment on above: Order Comment: Speci men Type: BLOOD SPECIMEN Ordering Facility: [facility] Address: [address] [place] [address] Performed By: #### 6 948-4 #### [facility] CLIA [id number] [address] [place] [address] [place] Reagin+T pallidum IgG+IgM Se rPl-Impon 02-16-2024 Reagin and Treponema pallidum IgG and IgM [Interp] Cannot exclude recent Treponemal infection if specimen collected within 7-10 days after appearance of suspect lesions or 2-3 weeks after an exposure. Clinical correlation is required. Normal [facility] Comment on above: Order Comment: Speci men Type: BLOOD SPECIMEN Ordering Facility: [facility] Address: [address] [place] [address] Performed By: #### 6 948-4 #### [facility] CLIA [id number] [address] [place] [address] [place] TRICHOMONAS VAGINALIS NAATon 02-16-2024 T. vaginalis DNA WILLEM+probe Ql (Unsp spec) Negative Normal Negative for Trichomonas vaginalis by amplification [facility] Comment on above: Order Comment: Speci men Type: BLOOD SPECIMEN Ordering Facility: [facility] Address: [address] [place] [address] Performed By: #### 6 948-4 #### [facility] CLIA [id number] [address] [place] [address] [place] UA DIP, URINE (POC)on 2023 BILIRUBIN UA (POCT) Negative Negative [facility] CLARITY UA (POCT) Clear [facility] COLOR UA (POCT) Yellow [facility] GLUCOSE UA (POCT) Negative Negative mg/dL [facility] Hemoglobin Ql (U) Negative Negative [facility] Interpretation and review of laboratory results Abnormal [facility] KETONE UA (POCT) Negative Negative mg/dL [facility] LEUKOCYTES UA (POCT) Trace Abnormal Negative [facility] NITRITE UA (POCT) Negative Negative [facility] PH UA (POCT) 6.5 4.5 - 8.0 [facility] Protein Ql (U) Negative Negative mg/dL [facility] SPECIFIC GRAVITY UA (POCT) 1.010 1.005 - 1.030 [facility] UROBILINOGEN UA (POCT) 0.2 Normal E.U./dL [facility] Location:[address], [place], [place], [address] [place] [address] POINT OF CARE [facility] UA DIP,URINE HCG (POC)on Beta HCG ( test) Ql (U) Negative Negative [facility] Comment on above: Location:[address], [facility] Core Machine Tender (POCT) Internal QC OK [facility] Location:[address], [address] [place] [address] POINT OF CARE [facility] lamoTRIgine SerPl-mCncon lamoTRIgine [Mass/Vol] 3.2 ug/mL Normal 1.0-13.0 [facility] Comment on above: Order Comment: Speci men Type: BLOOD SPECIMEN Ordering Facility: [facility] Address: [address] [place] [address] Result Comment: This test was developed, and its performance characteristics determined by the [facility] Department of Pathology and Laboratory Medicine. It has not been cleared or approved by the FDA. The [facility] Department of Pathology and Laboratory Medicine is regulated under CLIA as qualified to perform high-complexity testing. This test is used for clinical purposes. It should not be regarded as investigational or for research. Performed By: #### 6 948-4 #### [facility] CLIA [id number] [address] [place] [address] [place] levETIRAcetam SerPl-mCncon 1 levETIRAcetam [Mass/Vol] 4.4 ug/mL Low 12.0-46.0 [facility] Comment on above: Order Comment: Speci men Type: BLOOD SPECIMEN Ordering Facility: [facility] Address: [address] [place] [address] Result Comment: This test is not suitable for patients receiving treatment with the drug brivaracetam (Briviact). The drug causes an interference that may lead to falsely elevated levetiracetam results. Reference ranges and high/low indicator flags are provided as general guidelines only. The treating physician must determine appropriate target levels/dosing based on the specific clinical situation. This test was developed, and its performance characteristics determined by the [facility] Department of Pathology and Laboratory Medicine. It has not been cleared or approved by the FDA. The [facility] Department of Pathology and Laboratory Medicine is regulated under CLIA as qualified to perform high-complexity testing. This test is used for clinical purposes. It should not be regarded as investigational or for research. Performed By: #### 6 948-4 #### [facility] CLIA [id number] [address] [place], [place] [address] [address] [place] ALLIED HEALTHon 12-25-2023 ALLIED HEALTH HNO ID: [id number] Author: LAMONTE GARLAND RT(R) Service: Radiology Author Type: Technologist Type: Allied Health Filed: 12/25/2023 17:05 Note Text: Radiology Service Progress Note PATIENT NAME: Fabian Menjivar DATE OF SERVICE: December 25, 2023 TIME: 5:04 PM PATIENT IDENTITY VERIFICATION COMPLETED USING TWO (2) IDENTIFIERS: Name and Date of confirmed by patient verbally and Name and Date of confirmed by identification band. FALL SCREENING: Has the patient had 2 falls in the last year or 1 fall with injury or currently using an Ambulatory Assistive Device (Walker, Cane, Wheelchair, Crutches, etc.)? Emergency Room Patient: Screened in ED PATIENT GENDER DATA: Female. status: : No status: NO. 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: No RADIOLOGY DEPARTMENT: CT; Exam(s) Completed: Brain PERIPHERAL IV DATA: Not applicable SIGNED BY: RT Marley(R) December 25, 2023 5:04 PM Normal [facility] CBC W Auto Differential pane l (Bld)on 12-25-2023 Basophils (Bld) [#/Vol] 0.06 10*3/uL Normal <0.11 [facility] Comment on above: Order Comment: Speci men Type: BLOOD SPECIMENOrdering Facility: [facility] Address: [address] [place] [address] Performed By: #### 5 7021-8 ####[facility]ORATORYCLIA [id number] [place] [address] [place] Basophils/100 WBC (Bld) 0.4 % Normal [facility] Comment on above: Order Comment: Speci men Type: BLOOD SPECIMENOrdering Facility: [facility] Address: [address] [place] [address] Performed By: #### 5 7021-8 ####[facility]ORATORYCLIA [id number] [place] [address] [place] Differential cell count method Nom (Bld) Auto Normal [facility] Comment on above: Order Comment: Speci men Type: BLOOD SPECIMENOrdering Facility: [facility] Address: [address] [place] [address] Performed By: #### 5 7021-8 ####[facility]ORATORYCLIA [id number] [place] [address] [place] Eosinophils (Bld) [#/Vol] 0.11 10*3/uL Normal <0.46 [facility] Comment on above: Order Comment: Speci men Type: BLOOD SPECIMENOrdering Facility: [facility] Address: [address] [place] [address] Performed By: #### 5 7021-8 ####[facility]ORATORYCLIA [id number] [place] [address] [place] Eosinophils/100 WBC (Bld) 0.8 % Normal [facility] Comment on above: Order Comment: Speci men Type: BLOOD SPECIMENOrdering Facility: [facility] Address: [address] [place] [address] Performed By: #### 5 7021-8 ####[facility]ORATORYCLIA [id number] [address] [place] Erythrocyte distribution width (RBC) [Ratio] 13.5 % Normal 11.5-15.0 [facility] Comment on above: Order Comment: Speci men Type: BLOOD SPECIMENOrdering Facility: [facility] Address: [address] [place] [address] Performed By: #### 5 7021-8 ####[facility]ORATORYCLIA [id number] [place] [address] [place] Hematocrit (Bld) [Volume fraction] 42.0 % Normal 36.0-46.0 [facility] Comment on above: Order Comment: Speci men Type: BLOOD SPECIMENOrdering Facility: [facility] Address: [address] [place] [address] Performed By: #### 5 7021-8 ####[facility]ORATORYCLIA [id number] [address] STATES [place] Hemoglobin (Bld) [Mass/Vol] 14.2 g/dL Normal 11.5-15.5 [facility] Comment on above: Order Comment: Speci men Type: BLOOD SPECIMENOrdering Facility: [facility] Address: [address] [place] [address] Performed By: #### 5 7021-8 ####[facility]ORATORYCLIA [id number] [address] [place] Immature granulocytes (Bld) [#/Vol] 0.04 10*3/uL Normal <0.10 [facility] Comment on above: Order Comment: Speci men Type: BLOOD SPECIMENOrdering Facility: [facility] Address: [address] [place] [address] Performed By: #### 5 7021-8 ####[facility]ORATORYCLIA [id number] [address] [place] Immature granulocytes/100 WBC (Bld) 0.3 % Normal [facility] Comment on above: Order Comment: Speci men Type: BLOOD SPECIMENOrdering Facility: [facility] Address: [address] [place] [address] Performed By: #### 5 7021-8 ####[facility]ORATORYCLIA [id number] [address] [place] Lymphocytes (Bld) [#/Vol] 2.29 10*3/uL Normal 1.00-4.00 [facility] Comment on above: Order Comment: Speci men Type: BLOOD SPECIMENOrdering Facility: [facility] Address: [address] [place] [address] Performed By: #### 5 7021-8 ####[facility]ORATORYCLIA [id number] [address] Lymphocytes/100 WBC (Bld) 16.9 % Normal [facility] Comment on above: Order Comment: Speci men Type: BLOOD SPECIMENOrdering Facility: [facility] Address: [address] [place] [address] Performed By: #### 5 7021-8 ####[facility]ORATORYCLIA [id number] [address] MCH (RBC) [Entitic mass] 28.9 pg Normal 26.0-34.0 [facility] Comment on above: Order Comment: Speci men Type: BLOOD SPECIMENOrdering Facility: [facility] Address: [address] [place] [address] Performed By: #### 5 7021-8 ####[facility]ORATORYCLIA [id number] [address] MCHC (RBC) [Mass/Vol] 33.8 g/dL Normal 30.5-36.0 [facility] Comment on above: Order Comment: Speci men Type: BLOOD SPECIMENOrdering Facility: [facility] Address: [address] [place] [address] Performed By: #### 5 7021-8 ####[facility]ORATORYCLIA [id number] [address] MCV (RBC) [Entitic vol] 85.4 fL Normal 80.0-100.0 [facility] Comment on above: Order Comment: Speci men Type: BLOOD SPECIMENOrdering Facility: [facility] Address: [address] [place] [address] Performed By: #### 5 7021-8 ####[facility]ORATORYCLIA [id number] [place] [address] [place] Monocytes (Bld) [#/Vol] 0.95 10*3/uL High <0.87 [facility] Comment on above: Order Comment: Speci men Type: BLOOD SPECIMENOrdering Facility: [facility] Address: [address] [place] [address] Performed By: #### 5 7021-8 ####[facility]ORATORYCLIA [id number] [place] [address] [place] Monocytes/100 WBC (Bld) 7.0 % Normal [facility] Comment on above: Order Comment: Speci men Type: BLOOD SPECIMENOrdering Facility: [facility] Address: [address] [place] [address] Performed By: #### 5 7021-8 ####[facility]ORATORYCLIA [id number] [place] [address] [place] Neutrophils (Bld) [#/Vol] 10.11 10*3/uL High 1.45-7.50 [facility] Comment on above: Order Comment: Speci men Type: BLOOD SPECIMENOrdering Facility: [facility] Address: [address] [place] [address] Performed By: #### 5 7021-8 ####[facility]ORATORYCLIA [id number] [address] STATES OF [place] Neutrophils/100 WBC (Bld) 74.6 % Normal [facility] Comment on above: Order Comment: Speci men Type: BLOOD SPECIMENOrdering Facility: [facility] Address: [address] [place] [address] Performed By: #### 5 7021-8 ####[facility] LABORATORYCLIA [id number] [place] [id number] [place] Nucleated RBC (Bld) [#/Vol] 10*3/uL Normal <0.01 [facility] Comment on above: Order Comment: Speci men Type: BLOOD SPECIMENOrdering Facility: [facility] Address: [address] [place] [address] Performed By: #### 5 7021-8 ####[facility]ORATORYCLIA [id number] [place] [address] [place] Nucleated RBC/100 WBC (Bld) [Ratio] 0.0 /100 WBC Normal [facility] Comment on above: Order Comment: Speci men Type: BLOOD SPECIMENOrdering Facility: [facility] Address: [address] [place] [address] Performed By: #### 5 7021-8 ####[facility]ORATORYCLIA [id number] [place] [address] [place] Platelet mean volume (Bld) [Entitic vol] 9.1 fL Normal 9.0-12.7 [facility] Comment on above: Order Comment: Speci men Type: BLOOD SPECIMENOrdering Facility: [facility] Address: [address] [place] [address] Performed By: #### 5 7021-8 ####[facility]ORATORYCLIA [id number] [address] [place] Platelets (Bld) [#/Vol] 357 10*3/uL Normal 150-400 [facility] Comment on above: Order Comment: Speci men Type: BLOOD SPECIMENOrdering Facility: [facility] Address: [address] [place] [address] Performed By: #### 5 7021-8 ####[facility] LABORATORYCLIA [id number] [place] [address] [place] RBC (Bld) [#/Vol] 4.92 10*6/uL Normal 3.90-5.20 [facility] Comment on above: Order Comment: Speci men Type: BLOOD SPECIMENOrdering Facility: [facility] Address: [address] [place] [address] Performed By: #### 5 7021-8 ####[facility]ORATORYCLIA [id number] [address] [place] WBC (Bld) [#/Vol] 13.56 10*3/uL High 3.70-11.00 [facility] Comment on above: Order Comment: Speci men Type: BLOOD SPECIMENOrdering Facility: [facility] Address: [address] [place] [address] Performed By: #### 5 7021-8 ####[facility] LABORATORYCLIA [id number] [place] [address] [place] [address] BRAIN WO IVCONon 12-25-[address] BRAIN WO IVCON * * *Final Report* * * DATE OF EXAM: Dec 25 2023 5:07PM [facility] 0504 - CT BRAIN WO IVCON / PROCEDURE REASON: Seizure disorder, clinical change * * * * Physician Interpretation * * * * EXAMINATION: CT BRAIN WO IVCON CLINICAL HISTORY: Vomiting TECHNIQUE: Serial axial images without IV contrast were obtained from the vertex to the foramen magnum. MQ: CTBWO_3 CT Radiation dose: Integrated Dose-Length Product (DLP) for this visit = 748 mGy*cm CT Dose Reduction Employed: No dose reduction techniques were required COMPARISON: None. RESULT: Post-operative change: Prior right anterior temporal lobe resection. Acute change: No evidence of an acute infarct or other acute parenchymal process. Hemorrhage: No evidence of acute intracranial hemorrhage. ECASS hemorrhagic transformation score: Not Applicable Mass Lesion / Mass Effect: There is no evidence of an intracranial mass or extraaxial fluid collection. No significant mass effect. Chronic change: None apparent. Parenchyma: There is no significant volume loss. The brain parenchyma is otherwise within normal limits for age. Ventricles: The ventricles are within normal limits of size and configuration for age. Paranasal sinuses and skull base: The visualized paranasal sinuses are grossly clear. The skull base and imaged soft tissues are unremarkable. Localizer images: No additional findings. IMPRESSION: No evidence of acute intracranial pathology. Maintenance And Engineering Manager: PSCJoe Transcribe Date/Time: Dec 25 2023 5:36P Dictated by : TRACI EL MD This examination was interpreted and the report reviewed and electronically signed by: TRACI EL MD on Dec 25 2023 5:40PM EST [id number] Normal [facility] Comprehensive metabolic 2000 panelon 12-25-2023 Albumin [Mass/Vol] 4.5 g/dL Normal 3.9-4.9 [facility] Comment on above: Order Comment: Speci men Type: BLOOD SPECIMEN Ordering Facility: [facility] Address: [address] [place] [address] Performed By: #### 2 432-8, 80307-8 #### [facility] CLIA [id number] [address] [place] [address] [place] ALP [Catalytic activity/Vol] 33 U/L Low 34-123 [facility] Comment on above: Order Comment: Speci men Type: BLOOD SPECIMEN Ordering Facility: [facility] Address: [address] [place] [address] Performed By: #### 2 432-8, 74456-5 #### [facility] CLIA [id number] [address] [place] [address] [place] ALT [Catalytic activity/Vol] 28 U/L Normal 7-38 [facility] Comment on above: Order Comment: Speci men Type: BLOOD SPECIMEN Ordering Facility: [facility] Address: [address] [place] [address] Performed By: #### 2 4322-8, #### [facility] CLIA [id number] [address] [place] [address] [place] Anion gap [Moles/Vol] 14 mmol/L Normal 8-15 [facility] Comment on above: Order Comment: Speci men Type: BLOOD SPECIMEN Ordering Facility: [facility] Address: [address] [place] [address] Performed By: #### 2 4323-8, #### [facility] CLIA [id number] [address] [place] AST [Catalytic activity/Vol] 30 U/L Normal 13-35 [facility] Comment on above: Order Comment: Speci men Type: BLOOD SPECIMEN Ordering Facility: [facility] Address: [address] [place] [address] Performed By: #### 2 4323-8, #### [facility] CLIA [id number] [address] [place] [address] [place] Bilirubin [Mass/Vol] 0.4 mg/dL Normal 0.2-1.3 [facility] Comment on above: Order Comment: Speci men Type: BLOOD SPECIMEN Ordering Facility: [facility] Address: [address] [place] [address] Performed By: #### 2 4323-8, #### [facility] CLIA [id number] [address] [place] [address] [place] Calcium [Mass/Vol] 9.9 mg/dL Normal 8.5-10.2 [facility] Comment on above: Order Comment: Speci men Type: BLOOD SPECIMEN Ordering Facility: [facility] Address: [address] [place] [address] Performed By: #### 2 4328, #### [facility] CLIA [id number] [address] [place] [address] [place] Chloride [Moles/Vol] 102 mmol/L Normal 98-107 [facility] Comment on above: Order Comment: Speci men Type: BLOOD SPECIMEN Ordering Facility: [facility] Address: [address] [place] [address] Performed By: #### 2 43207-03, #### [facility] CLIA [id number] [address] [place] [address] [place] CO2 [Moles/Vol] 23 mmol/L Normal 22-30 [facility] Comment on above: Order Comment: Speci men Type: BLOOD SPECIMEN Ordering Facility: [facility] Address: [address] [place] [address] Performed By: #### 2 4328, #### [facility] CLIA [id number] [address] [place] [address] [place] Creatinine [Mass/Vol] 0.65 mg/dL Normal 0.58-0.96 [facility] Comment on above: Order Comment: Speci men Type: BLOOD SPECIMEN Ordering Facility: [facility] Address: [address] [place] [address] Performed By: #### 2 43207-03, #### [facility] CLIA [id number] [address] [place] [address] [facility] Creatinine and Glomerular filtration rate.predicted panel (S/P/Bld) 128 mL/min/1.73m??? Normal >=60 [facility] Comment on above: Order Comment: Andrea moreno Type: BLOOD SPECIMEN Ordering Facility: [facility] Address: [address] [place] [address] Result Comment: Ophelia mated Glomerular Filtration Rate (eGFR) is calculated using the 2020 CKD-EPI creatinine equation. This equation utilizes serum creatinine, sex, and age as parameters. The creatinine assay has traceable calibration to isotope dilution-mass spectrometry. Refer to KDIGO guidelines for clinical interpretation. In patients with unstable renal function, e.g. those with acute kidney injury, the eGFR may not accurately reflect actual GFR. Performed By: #### 2 4323-8, #### [facility] CLIA [id number] [address] [place] [address] [place] Glucose [Mass/Vol] 82 mg/dL Normal 74-99 [facility] Comment on above: Order Comment: Andrea moreno Type: BLOOD SPECIMEN Ordering Facility: [facility] Address: [address] [place], [place] [address] [place] [address] Result Comment: The [place] Diabetes Association (ADA) provides guidance for cutoff values for fasting glucose and random glucose. The ADA defines fasting as no caloric intake for at least 8 hours. Fasting plasma glucose results between 100 to 125 mg/dL indicate increased risk for diabetes (prediabetes). Fasting plasma glucose results greater than or equal to 126 mg/dL meet the criteria for diagnosis of diabetes. In the absence of unequivocal hyperglycemia, results should be confirmed by repeat testing. In a patient with classic symptoms of hyperglycemia or hyperglycemic crisis, random plasma glucose results greater than or equal to 200 mg/dL meet the criteria for diagnosis of diabetes. Reference: Standards of Medical Care in Diabetes 2016, [place] Diabetes Association. Diabetes Care. 2016.39(Suppl 1). Performed By: #### 2 4323-8, #### [facility] CLIA [id number] [address] [place] [address] [place] Potassium [Moles/Vol] 4.0 mmol/L Normal 3.7-5.1 [facility] Comment on above: Order Comment: Andrea moreno Type: BLOOD SPECIMEN Ordering Facility: [facility] Address: [address] [place] [id number] Performed By: #### 2 4323-8, #### [facility] CLIA [id number] [address] [place] [address] [place] Protein [Mass/Vol] 7.9 g/dL Normal 6.3-8.0 [facility] Comment on above: Order Comment: Speci men Type: BLOOD SPECIMEN Ordering Facility: [facility] Address: [address] [place] [address] Performed By: #### 2 4323-8, 45700-1 #### [facility] CLIA [id number] [address] [place] [address] [place] Sodium [Moles/Vol] 139 mmol/L Normal 136-144 [facility] Comment on above: Order Comment: Speci men Type: BLOOD SPECIMEN Ordering Facility: [facility] Address: [address] [place] [address] Performed By: #### 2 432-8, #### [facility] CLIA [id number] [address] [place] [address] [place] Urea nitrogen [Mass/Vol] 8 mg/dL Normal 7-21 [facility] Comment on above: Order Comment: Speci men Type: BLOOD SPECIMEN Ordering Facility: [facility] Address: [address] [place] [address] Performed By: #### 2 432-8, #### [facility] CLIA [id number] [address] [place] ED NOTEon 12-25-2023 ED NOTE HNO ID: [id number] Author: JEN MANUEL RN Service: ? Author Type: Registered Nurse Type: ED Notes Filed: 12/25/2023 18:18 Note Text: pt given dc instructions and follow up care. pt able to ambulate and keep water down. [facility] ED NOTE HNO ID: [id number] Author: JEN MANUEL RN Service: ? Author Type: Registered Nurse Type: ED Notes Filed: 12/25/2023 17:56 Note Text: PA in room to talk with pt. [facility] ED NOTE HNO ID: [id number] Author: JEN MANUEL RN Service: ? Author Type: Registered Nurse Type: ED Notes Filed: 12/25/2023 16:59 Note Text: pt is doing better now. [facility] ED NOTE HNO ID: [id number] Author: JEN MANUEL RN Service: ? Author Type: Registered Nurse Type: ED Notes Filed: 12/25/2023 16:58 Note Text: pt started freaking out and was having sever anxiety agitation and restlessness. PA anais will order benadryl. [facility] ED NOTE HNO ID: [id number] Author: GENEVIEVE CARD RN Service: ? Author Type: Registered Nurse Type: ED Notes Filed: 12/25/2023 15:17 Note Text: Pt states felt like she had a seizure this am. Pt states has not had any since her brain tumor was removed. Pt is taking her meds [facility] ED PROV NOTEon 12-25-2023 ED PROV NOTE HNO ID: [id number] Author: ESTEPHANIA LEAL PA-C Service: Emergency Medicine Author Type: Physician [employer] Press Operator Type: ED Provider Notes Filed: 12/25/2023 20:07 Note Text: ED Provider Note Patient Name: Fabian Menjivar : 2000 SERVICE DATE: 12/25/23 History Patient presents with: Syncope: Possible seizure Nausea AND Vomiting History provided by: Patient 23-year-old female with history of focal epilepsy, bipolar disorder who presents for concerning for seizure. 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 She was having seizures related to this tumor and had significant decrease in seizure load after tumor resection. She has been compliant with her antiepileptic medications, has not missed any doses. States when she woke up this morning she had aura typical prior to her seizures including feeling dizzy and nauseous. Reports that she does not typically remember her seizures and no one was with her to witness. Reports that after her seizures, she typically has headaches, nausea and vomiting which she has been experiencing all day despite taking a nap which normally does help her. Reports 1 possible seizure activity 1 to 2 months ago but otherwise has been seizure-free since brain surgery. Admits to fatigue and congestion today, recently started back at college classes. No fevers. No cough. No head trauma. 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, Gastric oxyntic-type mucosa with no pathologic diagnostic abnormality 2020: KNEE SURGERY HX; Right Comment: ACL repair No date: KNEE SURGERY HX; Right Comment: Scar tissue removal No date: PAST SURGICAL HISTORY OF; Left Comment: ACL repair FAMILY HISTORY Problem Relation Age of Onset No Known Problems Mother No Known Problems Father No Known Problems Sister No Known Problems Brother Heart Maternal Uncle Enlarged heart other (Anneurism) Maternal Grandmother Heart Maternal Grandfather age 62 [place] No Known Problems Paternal Grandmother No Known Problems Paternal Grandfather Diabetes Other mggfa Cancer Other MGGF Anesthesia Problems No Family History Social History Tobacco Use Smoking status: Never Smokeless tobacco: Never Vaping Use Vaping status: Some Days Substances: Nicotine, Flavoring Devices: Disposable Substance and Sexual Activity Alcohol use: Yes Alcohol/week: 3.0 standard drinks of alcohol Types: 3 Standard drinks or equivalent per week Drug use: Yes Frequency: 2.0 times per week Types: Marijuana Sexual activity: Yes Partners: Male control/protection: Condom, Pill ALLERGIES No Known Allergies Review of Systems HENT: Positive for congestion. Gastrointestinal: Positive for nausea and vomiting. Neurological: Positive for seizures and headaches. Physical Exam Vitals [12/25/23 1513] BP Pulse Temp Temp src Resp SpO2 Weight Height 148/98 (!) 119 36.8 ?C (98.3 ?F) Oral 18 98 % 95.3 kg (210 lb) 1.575 m (5' 2) Physical Exam Vitals and nursing note reviewed. Constitutional: General: She is not in acute distress. Appearance: Normal appearance. She is not toxic-appearing or diaphoretic. HENT: Head: Normocephalic and atraumatic. Mouth/Throat: Mouth: Mucous membranes are moist. Eyes: Extraocular Movements: Extraocular movements intact. Conjunctiva/sclera: Conjunctivae normal. Cardiovascular: Rate and Rhythm: Regular rhythm. Tachycardia present. Pulmonary: Effort: Pulmonary effort is normal. Breath sounds: Normal breath sounds. Abdominal: General: There is no distension. Palpations: Abdomen is soft. Tenderness: There is no abdominal tenderness. There is no guarding. Musculoskeletal: Cervical back: Normal range of motion. Skin: General: Skin is warm. Neurological: General: No focal deficit present. Mental Status: She is alert and oriented to person, place, and time. Psychiatric: Mood and Affect: Mood normal. Speech: Speech normal. Diagnostic Testing ED Labs Ordered and Reviewed - No data to display Procedures ED Course / Clinical Impression ED Course as of 12/25/23 1841 Estephania Leal's Documentation Chey Dec 25, 2023 1721 Patient reassessed. Nausea and headache improved after medication. 1758 Pt reassessed and updated on results. Feeling better, will PO chall (more content not included)... [facility] EKGon 12-25-2023 Electrocardiogram Ventricular Rate : 8 8 BPM Atrial Rate : 88 BPM P-R Interval : 162 ms QRS Duration : 82 ms Q-T Interval : 350 ms QTC Calculation(Bazett) : 423 ms Calculated P [place] : 32 degrees Calculated R [place] : 29 degrees Calculated T [place] : 9 degrees NORMAL SINUS RHYTHM CANNOT RULE OUT ANTERIOR INFARCT , AGE UNDETERMINED ABNORMAL ECG no STEMI Confirmed by MD ABREU EDWARD.S ([id number]) on 12/25/2023 4:32:25 PM NAME : FABIAN MENJIVAR PID : [id number] : 2000 Gender : Female Race : ORD : Procedure Date : Dec 25 2023 16:28:11 Edit Date : Dec 25 2023 16:32:27 Diagnosis: NORMAL SINUS RHYTHM CANNOT RULE OUT ANTERIOR INFARCT , AGE UNDETERMINED ABNORMAL ECG no STEMI Confirmed by MD ABREU EDWARD.S ([id number]) on 12/25/2023 4:32:25 PM Test Reason : Location : 1 : ER ED Overread By : MD ABREU EDWARD.S Edited By : MD ABREU EDWARD.S Referred By : , Acquired by : SUNITHA, [facility] Preg Ur Qlon 12-25-2023 HCG ( test) Ql (U) Negative Normal Negative [facility] Comment on above: Order Comment: Andrea moreno Type: URINE SPECIMENOrdering Facility: [facility] Address: [address] [place] [address] Result Comment: This test is intended to aid in the early detection of . Very dilute urine samples, as indicated by a low specific gravity, may not contain automobile sales representative levels of hCG. This test detects intact hCG only. This test does not reliably detect hCG degradation products, including free-beta subunit and beta-core fragment. Therefore, this test may show reduced reactivity in urine after 8 weeks gestation. A number of conditions other than , including trophoblastic disease and certain non-trophoblastic neoplasms cause elevated levels of hCG. As with any assay employing mouse antibodies, the possibility exists for interference by human anti-mouse antibodies (HAMA) in the specimen. The test provides a presumptive diagnosis for . Performed By: #### 2 106-3 ####[facility] [id number] [place] [address] [place] Magnesium SerPl-mCncon 12-24 Magnesium [Mass/Vol] 1.8 mg/dL Normal 1.7-2.3 [facility] Comment on above: Order Comment: Andrea moreno Type: BLOOD SPECIMEN Ordering Facility: [facility] Address: [address] [place] [address] Performed By: #### 2 4323-8, 17273-7 #### [facility] CLIA [id number] [address] [place] [address] [place] PT panel Coag (PPP)on 2023 INR Coag (PPP) [Relative time] 1.0 {INR} Normal 0.9-1.3 [facility] Comment on above: Order Comment: Andrea moreno Type: BLOOD SPECIMENOrdering Facility: [facility] Address: [address] [place] [address] Result Comment: Maryam min K Antagonist (VKA) Therapeutic Range: INR 2 to 3 (Target INR of 2.5) Note: For patients treated with VKA drugs, such as warfarin, the [employer] 2012 Guideline recommends a therapeutic INR range of 2 to 3 (target INR of 2.5). This recommendation includes high-risk patients with antiphospholipid syndrome with previous arterial or venous thromboembolism, current-generation mechanical or bioprosthetic aortic heart valve replacement. Note: Patients with mechanical aortic valve replacement and additional risk factors for thromboembolic events (atrial fibrillation, previous thromboembolism, LV dysfunction, hypercoagulable conditions) or an older generation mechanical AVR (i.e., ball in-Cage) or any mechanical MVR should have a INR therapeutic range of 2.5 to 3.5 (target INR of 3). Nils EAGLE, et al. Chest 2012, 141:7S-47S Kai RA, et al. [facility] 2017, 70: 252-289 Performed By: #### 3 4528-0 ####[facility] [id number] [address] [place] PT Coag (PPP) [Time] 10.7 s Normal 9.7-13.0 [facility] Comment on above: Order Comment: Speci men Type: BLOOD SPECIMENOrdering Facility: [facility] Address: [address] [place] [address] Performed By: #### 3 4528-0 ####[facility] [id number] [address] Urinalysis complete panel (U )on 12-25-2023 Bilirubin Ql (U) Negative Normal Negative [facility] Comment on above: Order Comment: Speci men Type: URINE SPECIMEN Ordering Facility: [facility] Address: [address] [place] [address] Performed By: #### 2 4356-8 #### [facility] CLIA [id number] [address] Clarity (Unsp spec) Clear Normal Clear [facility] Comment on above: Order Comment: Speci men Type: URINE SPECIMEN Ordering Facility: [facility] Address: [address] [place] [address] Performed By: #### 2 4356-8 #### [facility] CLIA [id number] [address] Color (U) Yellow Normal Yellow [facility] Comment on above: Order Comment: Speci men Type: URINE SPECIMEN Ordering Facility: [facility] Address: [address] [place] [address] Performed By: #### 2 4356-8 #### [facility] CLIA [id number] [address] Epithelial cells LM.HPF (Urine sed) [#/Area] Moderate Normal [facility] Comment on above: Order Comment: Speci men Type: URINE SPECIMEN Ordering Facility: [facility] Address: [address] [place] [address] Performed By: #### 2 4356-8 #### [facility] CLIA [id number] [address] Glucose Test strip (U) [Mass/Vol] Negative Normal Negative [facility] Comment on above: Order Comment: Speci men Type: URINE SPECIMEN Ordering Facility: [facility] Address: [address] [place] [address] Performed By: #### 2 4356-8 #### [facility] CLIA [id number] [address] OF [facility] Hemoglobin Ql (U) 3+ Abnormal Negative [facility] Comment on above: Order Comment: Speci men Type: URINE SPECIMEN Ordering Facility: [facility] Address: [address] [place] [address] Performed By: #### 2 4356-8 #### [facility] CLIA [id number] [address] Ketones Ql (U) Negative Normal Negative [facility] Comment on above: Order Comment: Speci men Type: URINE SPECIMEN Ordering Facility: [facility] Address: [address] [place] [address] Performed By: #### 2 4356-8 #### [facility] CLIA [id number] [address] Leukocyte esterase Test strip Ql (U) Negative Normal Negative [facility] Comment on above: Order Comment: Speci men Type: URINE SPECIMEN Ordering Facility: [facility] Address: [address] [place] [address] Performed By: #### 2 4356-8 #### [facility] CLIA [id number] [address] [place] [address] [place] Nitrite Ql (U) Negative Normal Negative [facility] Comment on above: Order Comment: Speci men Type: URINE SPECIMEN Ordering Facility: [facility] Address: [address] [place] [address] Performed By: #### 2 4356-8 #### [facility] CLIA [id number] [address] [place] pH (U) 6.0 [pH] Normal 5.0-8.0 [facility] Comment on above: Order Comment: Speci men Type: URINE SPECIMEN Ordering Facility: [facility] Address: [address] [place] [address] Performed By: #### 2 4356-8 #### [facility] CLIA [id number] [address] STATES [facility] Protein (U) [Mass/Vol] Negative Normal Negative [facility] Comment on above: Order Comment: Speci men Type: URINE SPECIMEN Ordering Facility: [facility] Address: [address] [place] [address] Performed By: #### 2 4356-8 #### [facility] CLIA [id number] [address] RBC LM.HPF (Urine sed) [#/Area] 0-3 /HPF Normal 0-3 /HPF [facility] Comment on above: Order Comment: Speci men Type: URINE SPECIMEN Ordering Facility: [facility] Address: [address] [place] [address] Performed By: #### 2 4356-8 #### [facility] CLIA [id number] [address] [place] Specific gravity (U) [Rel density] 1.015 Normal 1.005-1.030 [facility] Comment on above: Order Comment: Speci men Type: URINE SPECIMEN Ordering Facility: [facility] Address: [address] [place] [address] Performed By: #### 2 4356-8 #### [facility] CLIA [id number] [address] [place] [address] [place] Urobilinogen Ql (U) 0.2 EU/dL Normal 0.2-1.0 EU/dL [facility] Comment on above: Order Comment: Speci men Type: URINE SPECIMEN Ordering Facility: [facility] Address: [address] [place] [address] Performed By: #### 2 4356-8 #### [facility] CLIA [id number] [address] [place] [address] [place] WBC LM.HPF (Urine sed) [#/Area] 0-5 /HPF Normal 0-5 /HPF [facility] Comment on above: Order Comment: Speci men Type: URINE SPECIMEN Ordering Facility: [facility] Address: [address] [place] [address] Performed By: #### 2 4356-8 #### [facility] CLIA [id number] [address] [place] lamoTRIgine SerPl-mCncon lamoTRIgine [Mass/Vol] <0.5 Low 1.0-13.0 [facility] Comment on above: Order Comment: Speci men Type: BLOOD SPECIMENOrdering Facility: [facility] Address: [address] [place] [address] Result Comment: This test was developed and its performance characteristics determined by [facility]'s [facility] Pathology and Laboratory [facility] [place] ([facility]). It has not been cleared or approved by the FDA. [facility] is regulated under CLIA as qualified to perform high-complexity testing. This test is used for clinical purposes. It should not be regarded as investigational or for research. Performed By: #### 6 948-4 ####[facility] [id number] [facility] [id number] [place] [address] [place] levETIRAcetam SerPl-mCncon 0 12-25-2023 levETIRAcetam [Mass/Vol] ug/mL Low 12.0-46.0 [facility] Comment on above: Order Comment: Speci men Type: BLOOD SPECIMENOrdering Facility: [facility] Address: [address] [place] [address] Result Comment: This test is not suitable for patients receiving treatment with the drug brivaracetam (Briviact). The drug causes an interference that may lead to falsely elevated levetiracetam results. Result rechecked. Reference ranges and high/low indicator flags are provided as general guidelines only. The treating physician must determine appropriate target levels/dosing based on the specific clinical situation. This test was developed and its performance characteristics determined by [facility] [place] ([facility]). It has not been cleared or approved by the FDA. [facility] is regulated under CLIA as qualified to perform high-complexity testing. This test is used for clinical purposes. It should not be regarded as investigational or for research. Performed By: #### 3 0471-7 ####[facility] LAB[facility]IA [id number] [place] [address] [place] TRANSGLUTAMINASE IGAOrdered By: Charline Moeller on 09-22-2023 tTG IgA Qn (S) 2 U/mL NIN - 4 U/mL [facility] tTG IgA Qn (S)Ordered By: Manisha Moeller on 09-22-2023 Interpretation and review of laboratory results Normal [facility] Transglutaminase IgA Abs Interpretation Negative Negative [facility] Comment on above: The following result s were obtained with [employer] QUANTA Lite R h-tTG IgA TIERRA. R h-tTG IgA values obtained with different manufacturers' assay methods may not be used interchangeably. The magnitude of the reported IgA levels cannot be correlated to an endpoint concentration. This is used as an aid in diagnosis of celiac disease. Clinical correlation is required. [facility] C-REACTIVE PROTEINon 024 CRP [Mass/Vol] 0.6 mg/dL NINF - 0.9 mg/dL [facility] CBC panel Auto (Bld)on 09-18 Erythrocyte distribution width (RBC) [Ratio] 13.7 % 11.5 - 15.0 % [facility] Hematocrit (Bld) [Volume fraction] 40.1 % 36.0 - 46.0 % [facility] Hemoglobin (Bld) [Mass/Vol] 13.6 g/dL 11.5 - 15.5 g/dL [facility] Interpretation and review of laboratory results Normal [facility] MCH (RBC) [Entitic mass] 28.6 pg 26.0 - 34.0 pg [facility] MCHC (RBC) [Mass/Vol] 33.9 g/dL 30.5 - 36.0 g/dL [facility] MCV (RBC) [Entitic vol] 84.4 fL 80.0 - 100.0 fL [facility] Nucleated RBC (Bld) [#/Vol] NINF [facility] Platelet mean volume (Bld) [Entitic vol] 9.5 fL 9.0 - 12.7 fL [facility] Platelets (Bld) [#/Vol] 374 10*3/uL [facility] RBC (Bld) [#/Vol] 4.75 10*6/uL 3.90 - 5.2 0 m/uL [facility] WBC (Bld) [#/Vol] 6.85 10*3/uL [facility] Comprehensive metabolic 2000 panelon 09-19-2023 Albumin [Mass/Vol] 4.3 g/dL 3.9 - 4.9 g/dL Cl [facility] ALP [Catalytic activity/Vol] 35 U/L 34 - 123 U/L [facility] ALT [Catalytic activity/Vol] 31 U/L 7 - 38 U/L [facility] Anion gap [Moles/Vol] 16 mmol/L 9 - 18 mmol/L [facility] AST [Catalytic activity/Vol] 30 U/L 13 - 35 U/L [facility] Bilirubin [Mass/Vol] 0.3 mg/dL 0.2 - 1 .3 mg/dL [facility] Calcium [Mass/Vol] 9.8 mg/dL 8.5 - 10. 2 mg/dL [facility] Chloride [Moles/Vol] 100 mmol/L 97 - 10 5 mmol/L [facility] CO2 [Moles/Vol] 22 mmol/L 22 - 30 mmol/L [facility] Creatinine [Mass/Vol] 0.66 mg/dL 0.58 - 0.96 mg/dL [facility] GFR/1.73 sq M.predicted among non-blacks MDRD (S/P/Bld) [Vol rate/Area] 127 mL/min/{1.73_m2} - PINF [facility] Comment on above: Estimated Glomerular Filtration Rate (eGFR) is calculated using the 2020 CKD-EPI creatinine equation. This equation utilizes serum creatinine, sex, and age as parameters. The creatinine assay has traceable calibration to isotope dilution-mass spectrometry. Refer to KDIGO guidelines for clinical interpretation. In patients with unstable renal function, e.g. those with acute kidney injury, the eGFR may not accurately reflect actual GFR. Glucose [Mass/Vol] 93 mg/dL 74 - 99 mg/dL [facility] Comment on above: The [place] Diabete s Association (ADA) provides guidance for cutoff values for fasting glucose and random glucose. The ADA defines fasting as no caloric intake for at least 8 hours. Fasting plasma glucose results between 100 to 125 mg/dL indicate increased risk for diabetes (prediabetes). Fasting plasma glucose results greater than or equal to 126 mg/dL meet the criteria for diagnosis of diabetes. In the absence of unequivocal hyperglycemia, results should be confirmed by repeat testing. In a patient with classic symptoms of hyperglycemia or hyperglycemic crisis, random plasma glucose results greater than or equal to 200 mg/dL meet the criteria for diagnosis of diabetes. Reference: Standards of Medical Care in Diabetes 2016, [place] [employer] Association. Diabetes Care. 2016.39(Suppl 1). Potassium [Moles/Vol] 4.4 mmol/L 3.7 - 5.1 mmol/L [facility] Protein [Mass/Vol] 7.1 g/dL 6.3 - 8.0 g/dL [facility] Sodium [Moles/Vol] 138 mmol/L 136 - 144 mmol/L [facility] Urea nitrogen [Mass/Vol] 14 mg/dL 7 - 21 mg/dL [facility] ESR Westergren method (Bld) [Velocity]on 09-19-2023 ESR (Bld) [Velocity] 8 mm/h [facility] Interpretation and review of laboratory results Normal [facility] FERRITINon 09-19-2023 Ferritin [Mass/Vol] 52.5 ng/mL 14.7 - 2 05.1 ng/mL [facility] Ferritin [Mass/Vol]on 2023 Interpretation and review of laboratory results Normal [facility] GGTon 09-19-2023 Gamma glutamyl transferase [Catalytic activity/Vol] 30 U/L 6 - 46 U/L [facility] Gamma glutamyl transferase [ Catalytic activity/Vol]on 09-19-2023 Interpretation and review of laboratory results Normal [facility] IMMUNOGLOBULIN Aon IgA [Mass/Vol] 188 mg/dL 70 - 400 mg/dL [facility] IgA [Mass/Vol]on 09-19-2023 Interpretation and review of laboratory results Normal [facility] No Panel Informationon 09-18 Interpretation and review of laboratory results Normal [facility] Interpretation and review of laboratory results Normal [facility] T4 FREE/FREE THYROXINEon Free T4 [Mass/Vol] 1.1 ng/dL 0.9 - 1.7 ng/dL [facility] THYROID STIMULATING HORMONEo n 09-19-2023 TSH Qn 1.630 m[IU]/L [facility] Comment on above: If the patient is pr egnant, TSH reference range varies by gestational period: First Trimester (weeks 9-12): 0.180-2.990 mIU/L Second Trimester: 0.110-3.980 mIU/L Third Trimester: 0.480-4.710 mIU/L Luciano Aviles, et al. A Practical Approach for the Verifications and Determination of Site- and Trimester-Specific Reference Intervals for Thyroid Function tests in . Thyroid, 2019:29:3:412-420. Rodney Browning, et al. 2017 Guidelines of the [place] Thyroid Association for the Diagnosis and Management of Thyroid Disease during and the . Thyroid, 2017:27:3:315-389. MR Brain WO and W contrast I Von 09-17-2023 IMPRESSION: Postsurgical changes from right anterior temporal lobe resection. No evidence of residual or recurrent tumor. Resolution of previously seen post surgical changes and mass effect seen on previous MRI dated 10/26/2022. Chiari I malformation. No syrinx in the visualized upper cervical spine. Maintenance And Engineering Manager: PSCB Transcribe Date/Time: Sep 17 2023 12:40P Dictated by : DERRICK OSORIO, DO This examination was interpreted and the report reviewed and electronically signed by: NATALIYA MESA MD on Sep 17 2023 5:18PM [facility] DIVISION OF RADIOLOGY * * *Final Report* * * DATE OF EXAM: Sep 17 2023 12:17PM [facility] 0295 - MRI BRAIN WO/W IVCON / PROCEDURE REASON: Other specified postprocedural states * * * * Physician Interpretation * * * * EXAMINATION: MRI BRAIN WO/W IVCON CLINICAL HISTORY: s/p right anteromesial resection with removal of a tumor on 10/25/2022. 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 MQ: MRBWOW_2 Contrast: 18 mL Dotarem IV COMPARISON: MRI brain dated 10/26/2022 and 03/18/2022 RESULT: Acute Change: There is no evidence of restricted diffusion to suggest an acute infarct. Hemorrhage: No acute intracranial hemorrhage. Minimal postoperative blood products at the margins of the right temporal resection defect. Mass Lesion/ Mass Effect: Postsurgical changes status post right-sided craniotomy for resection of right temporal lobe mass. Underlying resection defect in the right anterior temporal lobe extending to the right mesial temporal lobe. Mild gliosis surrounding the resection cavity, and mild insufflation along the lateral right temporal lobe underlying the craniotomy, presumably postsurgical. No evidence of recurrent neoplasm. No abnormal adjacent enhancement. Resolution of the previously seen recent post surgical changes and mass effect seen on previous MRI dated 10/26/2022. Otherwise, no pathologic parenchymal or leptomeningeal enhancement elsewhere in the brain. No mass effect or midline shift. Chronic Change: The white matter is within normal limits of signal intensity for age. Parenchyma: No significant volume loss for age. Pointed cerebellar tonsils projecting approximately 1 cm below the foramen magnum and effacing the foramen magnum suggesting Chiari I malformation. No evidence of syringohydromyelia in the visualized upper cervical cord. Ventricles: Normal caliber and morphology. Skull Base: Hypothalamic and pituitary region are grossly normal. No significant marrow replacement process. Vasculature: Major intracranial arterial structures, and dural venous sinuses show typical flow void, suggesting patency by spin echo criteria. Other: The visualized paranasal sinuses and mastoid air cells are clear. Subcentimeter right and left parotid nodules, likely intraparotid lymph nodes, appear similar to prior MRI dated 10/26/2022. DIVISION OF RADIOLOGY Provider, [facility] - 09/17/2023 * * *Final Report* * * DATE OF EXAM: Sep 17 2023 12:17PM [facility] 0295 - MRI BRAIN WO/W IVCON / PROCEDURE REASON: Other specified postprocedural states * * * * Physician Interpretation * * * * EXAMINATION: MRI BRAIN WO/W IVCON CLINICAL HISTORY: s/p right anteromesial resection with removal of a tumor on 10/25/2022. 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 MQ: MRBWOW_2 Contrast: 18 mL Dotarem IV COMPARISON: MRI brain dated 10/26/2022 and 03/18/2022 RESULT: Acute Change: There is no evidence of restricted diffusion to suggest an acute infarct. Hemorrhage: No acute intracranial hemorrhage. Minimal postoperative blood products at the margins of the right temporal resection defect. Mass Lesion/ Mass Effect: Postsurgical changes status post right-sided craniotomy for resection of right temporal lobe mass. Underlying resection defect in the right anterior temporal lobe extending to the right mesial temporal lobe. Mild gliosis surrounding the resection cavity, and mild insufflation along the lateral right temporal lobe underlying the craniotomy, presumably postsurgical. No evidence of recurrent neoplasm. No abnormal adjacent enhancement. Resolution of the previously seen recent post surgical changes and mass effect seen on previous MRI dated 10/26/2022. Otherwise, no pathologic parenchymal or leptomeningeal enhancement elsewhere in the brain. No mass effect or midline shift. Chronic Change: The white matter is within normal limits of signal intensity for age. Parenchyma: No significant volume loss for age. Pointed cerebellar tonsils projecting approximately 1 cm below the foramen magnum and effacing the foramen magnum suggesting Chiari I malformation. No evidence of syringohydromyelia in the visualized upper cervical cord. Ventricles: Normal caliber and morphology. Skull Base: Hypothalamic and pituitary region are grossly normal. No significant marrow replacement process. Vasculature: Major intracranial arterial structures, and dural venous sinuses show typical flow void, suggesting patency by spin echo criteria. Other: The visualized paranasal sinuses and mastoid air cells are clear. Subcentimeter right and left parotid nodules, likely intraparotid lymph nodes, appear similar to prior MRI dated 10/26/2022. IMPRESSION IMPRESSION: Postsurgical changes from right anterior temporal lobe resection. No evidence of residual or recurrent tumor. Resolution of previously seen post surgical changes and mass effect seen on previous MRI dated 10/26/2022. Chiari I malformation. No syrinx in the visualized upper cervical spine. Maintenance And Engineering Manager: CLAUDIA Transcribe Date/Time: Sep 17 2023 12:40P Dictated by : DERRICK OSORIO DO This examination was interpreted and the report reviewed and electronically signed by: NATALIYA MESA MD on Sep 17 2023 5:18PM EST [facility] Radiology Study observation (narrative) [facility] MR Brain WO and W contrast I VOrdered By: Ccf Provider on 09-17-2023 [facility] Absolute lymphocyte countOrd ered By: Power Mejias on 11-27-2022 Lymphocytes Auto (Unsp spec) [#/Vol] 2.35 10*3/uL 0.83-4.51 [facility] Alcohol, Blood (Medical)-Ser umon 11-27-2022 SERUM ETOH < 3.0 Normal [facility] Comment on above: Result Comment: The serum:whole blood ethanol ratio is approximately 1.14 and varies slightly with hematocrit. Medical Alcohol reference interval and critical value in non-tolerant individuals; 50 - 100 Impairment 100 Intoxication 100 - 250 Severe Poisoning 250 - 400 Deep/possible fatal coma Performed By: #### L 700.6800, L505.5000, L100.0100, L500.4050, L501.9100 #### [facility] [address] [place], [place], [id number] Automated blood hematocrit ( percentage)Ordered By: Power Mejias on 11-27-2022 Hematocrit (Bld) [Volume fraction] 38.9 % Normal 37-47 [facility] Comment on above: Performed By: #### L 700.6800, L505.5000, L100.0100, L500.4050, L501.9100 #### [facility] [address] [facility] [place], [address] Basophil percentageOrdered B y: Power Mejias on 11-27-2022 Basophils/100 WBC (Bld) 0.7 % Normal 0-1 [facility] Comment on above: Performed By: #### L 700.6800, L505.5000, L100.0100, L500.4050, L501.9100 #### [facility] [address] [place], [address] Eosinophils/100 WBC (Bld) 0.9 % Normal 0-5 [facility] Comment on above: Performed By: #### L 700.6800, L505.5000, L100.0100, L500.4050, L501.9100 #### [facility] [address] [place], [address] Neutrophils/100 WBC (Bld) 70.0 % Normal 47-70 [facility] Comment on above: Performed By: #### L 700.6800, L505.5000, L100.0100, L500.4050, L501.9100 #### [facility] [address] [place], [address] WBC (Bld) [#/Vol] 10.6 10*3/uL Normal 4.4-11.0 [facility] Comment on above: Performed By: #### L 700.6800, L505.5000, L100.0100, L500.4050, L501.9100 #### [facility] [address] [place], [address] Bilirubin [Mass/Vol] 0.30 mg/dL 0.20-1.00 [facility] Comment on above: For patients on eltr ombopag therapy, use of Dimension [place] TBIL is not recommended. Chloride [Moles/Vol] 108 mmol/L 98-107 [facility] Glucose [Mass/Vol] 86 mg/dL 74-106 [facility] Potassium [Moles/Vol] 4.3 mmol/L 3.5-5.1 [facility] Protein [Mass/Vol] 8.0 g/dL 6.4-8.2 [facility] Sodium [Moles/Vol] 139 mmol/L 136-145 [facility] Basophil percentage 0-5 SEEN /hpf 0-5 [facility] Neutrophils (Bld) [#/Vol] 7.4 10*3/uL 2.0-7.7 [facility] Beta hCG serum qualOrdered B y: Power Mejias on 11-27-2022 Beta HCG ( test) Ql Negative [facility] Bilirubin Test strip Ql (U)O rdered By: Power Mejias on 11-27-2022 Bilirubin Ql (U) Negative Negative [facility] Blood erythrocytes count (nu mber/volume)Ordered By: Power Mejias on 11-27-2022 RBC (Bld) [#/Vol] 4.28 10*6/uL Normal 4.2-5.4 [facility] Comment on above: Performed By: #### L 700.6800, L505.5000, L100.0100, L500.4050, L501.9100 #### [facility] [address] [place], [place], [id number] (609) Blood hemoglobin measurement (mass/volume)Ordered By: Power Mejias on 11-27-2022 Hemoglobin (Bld) [Mass/Vol] 13.0 g/dL Normal 12.0-15.0 [facility] Comment on above: Performed By: #### L 700.6800, L505.5000, L100.0100, L500.4050, L501.9100 #### [facility] [address] [place], [place], [id number] (693) Blood lymphocytes/100 leukoc ytesOrdered By: Power Mejias on 11-27-2022 Lymphocytes/100 WBC (Bld) 22.3 % Normal 19-41 [facility] Comment on above: Performed By: #### L 700.6800, L505.5000, L100.0100, L500.4050, L501.9100 #### [facility] [address] [place], [address] Blood monocytes/100 leukocyt esOrdered By: Power Mejias on 11-27-2022 Monocytes/100 WBC (Bld) 5.8 % Normal 0-10 [facility] Comment on above: Performed By: #### L 700.6800, L505.5000, L100.0100, L500.4050, L501.9100 #### [facility] [address] [place], [address] Blood platelet mean volumeOr dered By: Power Mejias on 11-27-2022 Platelet mean volume (Bld) [Entitic vol] 9.0 fL Normal 6.2-12.0 [facility] Comment on above: Performed By: #### L 700.6800, L505.5000, L100.0100, L500.4050, L501.9100 #### [facility] [address] [place], [address] CBC W/Diff, Automatedon Absolute Lymph 2.35 X10 3/uL Normal 0.83-4.51 [facility] Comment on above: Performed By: #### L 700.6800, L505.5000, L100.0100, L500.4050, L501.9100 #### [facility] [address] [place], [address] Absolute Neut 7.4 X10 3/uL Normal 2.0-7.7 [facility] Comment on above: Performed By: #### L 700.6800, L505.5000, L100.0100, L500.4050, L501.9100 #### [facility] [address] [place], [address] IG% 0.300 Normal 0.0-0.9 [facility] Comment on above: Result Comment: IG% - Immature Granulocytes (promyelocytes, myelocytes and metamyelocytes) > 1% indicates that a LEFT SHIFT is Present. Performed By: #### L 700.6800, L505.5000, L100.0100, L500.4050, L501.9100 #### [facility] [address] [place], [address] Nucleated RBC (Bld) [#/Vol] 0 10*3/uL Normal 0-5 [facility] Comment on above: Performed By: #### L 700.6800, L505.5000, L100.0100, L500.4050, L501.9100 #### [facility] [address] [place], [address] RDW SD 41.7 fl Normal 35.1-43.9 [facility] Comment on above: Performed By: #### L 700.6800, L505.5000, L100.0100, L500.4050, L501.9100 #### [facility] [address] [place], [address] CBC W/Diff, AutomatedOrdered By: Power Mejias on 11-27-2022 Erythrocyte distribution width (RBC) [Ratio] 12.8 % Normal 11.6-14.6 [facility] Comment on above: Performed By: #### L 700.6800, L505.5000, L100.0100, L500.4050, L501.9100 #### [facility] [address] [place], [address] MCH (RBC) [Entitic mass] 30.4 pg Normal 27.0-32.0 [facility] Comment on above: Performed By: #### L 700.6800, L505.5000, L100.0100, L500.4050, L501.9100 #### [facility] [address] [place], [address] Comprehensive Metabolic Prof ilon 11-27-2022 Albumin [Mass/Vol] 3.7 g/dL Normal 3.2-5.0 [facility] Comment on above: Performed By: #### L 700.6800, L505.5000, L100.0100, L500.4050, L501.9100 #### [facility] [address] [place], [address] Albumin/Globulin [Mass ratio] 0.9 {ratio} Normal 0.9-2.4 [facility] Comment on above: Performed By: #### L 700.6800, L505.5000, L100.0100, L500.4050, L501.9100 #### [facility] [address] [place], [address] ALK P 31 U/L Low 45-117 [facility] Comment on above: Performed By: #### L 700.6800, L505.5000, L100.0100, L500.4050, L501.9100 #### [facility] [address] [place], [address] ALT [Catalytic activity/Vol] 23 U/L Normal 13-56 [facility] Comment on above: Performed By: #### L 700.6800, L505.5000, L100.0100, L500.4050, L501.9100 #### [facility] [address] [place], [address] AST [Catalytic activity/Vol] 15 U/L Normal 15-37 [facility] Comment on above: Performed By: #### L 700.6800, L505.5000, L100.0100, L500.4050, L501.9100 #### [facility] [address] [place], [address] Bilirubin [Mass/Vol] 0.30 mg/dL Normal 0.20-1.00 [facility] Comment on above: Result Comment: For patients on eltrombopag therapy, use of Dimension [place] TBIL is not recommended. Performed By: #### L 700.6800, L505.5000, L100.0100, L500.4050, L501.9100 #### [facility] [address] [place], [address] BUN/CRE 10.0 RATIO Normal 10-20 [facility] Comment on above: Performed By: #### L 700.6800, L505.5000, L100.0100, L500.4050, L501.9100 #### [facility] [address] [place], [address] CA,Total 9.6 mg/dL Normal 8.5-10.1 [facility] Comment on above: Performed By: #### L 700.6800, L505.5000, L100.0100, L500.4050, L501.9100 #### [facility] [address] [place], [address] Chloride [Moles/Vol] 108 mmol/L High 98-107 [facility] Comment on above: Performed By: #### L 700.6800, L505.5000, L100.0100, L500.4050, L501.9100 #### [facility] [address] [place], [address] CO2 [Moles/Vol] 25.0 mmol/L Normal 21.0-32.0 [facility] Comment on above: Performed By: #### L 700.6800, L505.5000, L100.0100, L500.4050, L501.9100 #### [facility] [address] [place], [address] Creatinine [Mass/Vol] 0.70 mg/dL Normal 0.55-1.02 [facility] Comment on above: Result Comment: The validity of the calculated GFR GFRAA in patients over 70 years has not been determined. Clinical correlation is essential. Performed By: #### L 700.6800, L505.5000, L100.0100, L500.4050, L501.9100 #### [facility] [address] [place], [address] ECRCL 100.55 ml/min Normal [facility] Comment on above: Performed By: #### L 700.6800, L505.5000, L100.0100, L500.4050, L501.9100 #### [facility] [address] [place], [address] EST GFR - AA 136 mL/min Normal >60 [facility] Comment on above: Result Comment: Afri can Iranian GFR Calc Performed By: #### L 700.6800, L505.5000, L100.0100, L500.4050, L501.9100 #### [facility] [address] [place], [address] GAP 6 Normal 5-15 [facility] Comment on above: Performed By: #### L 700.6800, L505.5000, L100.0100, L500.4050, L501.9100 #### [facility] [address] [place], [address] GFR/1.73 sq M.predicted among non-blacks MDRD (S/P/Bld) [Vol rate/Area] 112 mL/min/{1.73_m2} Normal >60 [facility] Comment on above: Result Comment: Non- GFR Calc Performed By: #### L 700.6800, L505.5000, L100.0100, L500.4050, L501.9100 #### [facility] [address] [place], [address] Globulin (S) [Mass/Vol] 4.3 g/dL High 2.2-4.2 [facility] Comment on above: Performed By: #### L 700.6800, L505.5000, L100.0100, L500.4050, L501.9100 #### [facility] [address] [place], [address] Glucose [Mass/Vol] 86 mg/dL Normal 74-106 [facility] Comment on above: Performed By: #### L 700.6800, L505.5000, L100.0100, L500.4050, L501.9100 #### [facility] [address] [place], [address] Potassium [Moles/Vol] 4.3 mmol/L Normal 3.5-5.1 [facility] Comment on above: Performed By: #### L 700.6800, L505.5000, L100.0100, L500.4050, L501.9100 #### [facility] [address] [place], [address] Sodium [Moles/Vol] 139 mmol/L Normal 136-145 [facility] Comment on above: Performed By: #### L 700.6800, L505.5000, L100.0100, L500.4050, L501.9100 #### [facility] [address] [place], [address] T PROT 8.0 g/dL Normal 6.4-8.2 [facility] Comment on above: Performed By: #### L 700.6800, L505.5000, L100.0100, L500.4050, L501.9100 #### [facility] [address] [place], [address] Urea nitrogen [Mass/Vol] 7 mg/dL Normal 7-18 [facility] Comment on above: Performed By: #### L 700.6800, L505.5000, L100.0100, L500.4050, L501.9100 #### [facility] [address] [place], [address] Determination of erythrocyte mean corpuscular volume (MCV)Ordered By: Power Mejias on 11-27-2022 MCV (RBC) [Entitic vol] 90.9 fL Normal 81-99 [facility] Comment on above: Performed By: #### L 700.6800, L505.5000, L100.0100, L500.4050, L501.9100 #### [facility] [address] [place], [address] Emergency Department Summary on 11-27-2022 Emergency Department Summary [facility] Medical Records Department [address] [place] [address] Emergency Department Summary 11/27/22 MR#: [id number] Acct: [id number] Name: FABIAN MENJIVAR Rep #: [id number] : 2000 22 From: Power Mejias DO PCP: Dr. Dionte Fu MD Status:DEP ER Location: ED HPI HPI - Psych History of Present Illness Chief Complaint: Suicidal Informant: patient Onset/Context/Timing Onset: Weeks (2-3) Context: Gradual Onset Timing: Waxes and wanes Worsened by: - (Stress) Relieved by: Nothing Associated Symptoms Associated Symptoms - Psych: Positive for Depressed; Negative for Suicidal Thoughts Narrative Narrative: Patient presents with depression and suicidal thoughts that have been getting worse over the past 2 to 3 weeks. Patient states she is under a lot of stress with starting back to school and trying to find a job. Patient states that she feels as though she would just be better off . Patient denies any definite plan for suicide. Patient states her symptoms have gradually gotten worse over the past 2 to 3 weeks. Patient admits to some nausea and vomiting. Patient denies any fevers or chills. Patient denies any chest pain or shortness of breath. [facility] Medical History Anxiety and depression Brain surgery within last 3 months Celiac disease Home Medications drospirenone 3 mg-ethinyl estradiol 0.02 mg tablet (Kristal (28)) 1 tab PO DAILY 09/02/20 [History Last Taken Unknown] dicyclomine 10 mg capsule 10 mg PO DAILY PRN celiac 09/05/20 [History Last Taken Unknown] aripiprazole 5 mg tablet mg PO DAILY 11/27/22 [History Last Taken Unknown] escitalopram oxalate 10 mg tablet (Lexapro) 10 mg PO DAILY 11/27/22 [History Last Taken Unknown] fluoxetine 10 mg capsule mg PO DAILY 11/27/22 [History Last Taken Unknown] Allergy/AdvReac Type Severity Reaction Status Date / Time No Known Allergies Allergy Verified 11/27/22 10:43 Social History Smoking Status: Never smoker ROS ROS ED Constitutional Constitutional ED: Denies chills or fever(s) Eyes Eyes: Denies blurry vision or change in vision ENT ENT ED: Denies rhinorrhea or sore throat Cardiovascular Cardiovascular: Denies chest pain or palpitations Respiratory/Chest Respiratory/Chest: Denies cough or dyspnea Gastrointestinal Gastrointestinal: Reports nausea and vomiting Genitourinary Genitourinary ED: Denies dysuria or hematuria Musculoskeletal Musculoskeletal: Denies back pain or neck pain Integumentary Denies abscess or rash Neurologic Neurologic: Denies headache(s) or weakness Psychiatric Psychiatric: Reports depression Allergic/Immunologic Allergic/Immunologic ED: Denies mouth swelling or urticaria EXAM Physical Exam Const Vital Signs: 11/27/22 10:41 11/27/22 12:00 11/27/22 13:00 Temperature 97.5 F L Temperature Source Temporal Pulse Rate 109 H Respiratory Rate 16 18 18 Blood Pressure 156/101 H Blood Pressure Mean 119 Pulse Ox 100 Oxygen Delivery Method Room Air Positive well nourished and well developed General Appearance ED: well developed and NAD HEENT Reports moist mucous membranes Neck supple and no JVD Resp normal respiratory effort and clear to auscultation bilaterally Cardio regular rate, regular rhythm and no murmurs GI normal to inspection, nondistended, normoactive bowel sounds and non-tender Palpation: soft Extremity normal to inspection General Extremety ED: Negative for edema or tenderness General Extremity: Negative for edema Neuro oriented x3, CN's II-XII intact bilaterally and no sensory deficits noted Sensorium / Orientation: alert Motor Exam: strength 5/5 throughout Psych mental status grossly normal Attitude: calm Activity / Motor Behavior: appropriate eye contact Mood Affect: depressed Thought Content: No suicidality and No homicidality Attention / Concentration: attention grossly intact Skin no rashes or lesions noted MDM MDM MDM Narrative Medical decision making narrative: Differential diagnosis includes depression, anxiety, and stress. Medical screening labs will be obtained. CBC will be obtained to assess for leukocytosis and anemia. Comprehensive metabolic profile will be obtained to assess for electrolyte abnormality, renal function, and hepatic function. Serum hCG will be obtained to assess for . Urinalysis will be obtained to assess for urinary tract infection. Serum alcohol level will be obtained to assess for alcohol intoxication. Urine tox screen will be obtained to assess for drug abuse. Lab Data Attestation: I reviewed the patient's lab results. Lab results narrative: CBC was reviewed and was within normal limits. Comprehensive meta (more content not included)... Normal [facility] Ketones Test strip Ql (U)Ord ered By: Power Mejias on 11-27-2022 Ketones Ql (U) Negative Negative [facility] Laboratory - Chemistry and C hemistry - challengeOrdered By: Power Mejias on 11-27-2022 ALP [Catalytic activity/Vol] 31 U/L 45-117 [facility] ALT [Catalytic activity/Vol] 23 U/L 13-56 [facility] CO2 [Moles/Vol] 25.0 mmol/L 21.0-32.0 [facility] Globulin (S) [Mass/Vol] 4.3 g/dL 2.2-4.2 [facility] Urea nitrogen/Creatinine [Mass ratio] 10.0 mg/mg 10-20 [facility] - Drug toxicology Ordered By: Power Mejias on 11-27-2022 Amphetamines Ql (U) Negative <1000 ng/mL [facility] Benzodiazepines Ql (U) Negative < 200 ng/mL [facility] Cannabinoids Screen Ql (U) Positive < 50 ng/mL [facility] Cocaine Ql (U) Negative < 300 ng/mL [facility] Opiates Ql (U) Negative < 300 ng/mL [facility] - Hematology and Cell countsOrdered By: Power Mejias on 11-27-2022 Erythrocyte distribution width (RBC) [Entitic vol] 41.7 fL 35.1-43.9 [facility] Immature granulocytes/100 WBC (Bld) 0.300 % 0.0-0.9 [facility] Comment on above: IG% - Immature Granu locytes (promyelocytes, myelocytes and metamyelocytes) > 1% indicates that a LEFT SHIFT is Present. Nucleated RBC/100 WBC (Bld) [Ratio] 0 % 0-5 [facility] MCHC [Mass/volume] by Automa gabi countOrdered By: Power Mejias on 11-27-2022 MCHC (RBC) [Mass/Vol] 33.4 g/dL Normal 32-36 [facility] Comment on above: Performed By: #### L 995.4368, L505.5000, L100.0100, L500.4050, L501.9100 #### [facility] [address] [place], [address] Mucus LM Ql (Urine sed)Order ed By: Power Mejias on 11-27-2022 Mucus Ql (Urine sed) 0 SEEN /hpf [facility] Nitrite Test strip Ql (U)Ord ered By: Power Mejias on 11-27-2022 Nitrite Ql (U) Negative Negative [facility] No Panel InformationOrdered By: Power Mejias on 11-27-2022 Estimated Creatinine Clearance Calc 100.55 ml/min [facility] Estimated GFR (MDRD) Amer 136 mL/min >60 [facility] Comment on above: GFR Calc Estimated GFR (MDRD) Non-Af Amer 112 mL/min >60 [facility] Comment on above: Non- GFR Calc Ethyl Alcohol Level < 3.0 mg/dL [facility] Comment on above: The serum:whole bloo d ethanol ratio is approximately 1.14and varies slightly with hematocrit. Medical Alcohol reference interval and critical value innon-tolerant individuals; 50 - 100 Impairment 100 Intoxication 100 - 250 Severe Poisoning 250 - 400 Deep/possible fatal coma MDMA (Ecstasy) Screen Negative < 500 ng/mL [facility] Urine Barbiturates Screen Negative < 200 ng/mL [facility] Urine Drug Screen Comment [facility] Comment on above: CONFIRMATORY TESTING FOR ALL POSITIVE URINE DRUG SCREENRESULTS WILL ONLY BE SENT OUT UPON PHYSICIAN ORDER. [facility]ISTA Urine Drug Screen methods provide only preliminaryanalytical test results. A more specific alternate chemicalmethod must be used in order to obtain a confirmedanalytical result. Gas chromatography/mass spectrometery(GC/MS) is the preferred confirmatory method. Clinicalconsideration and professional judgement should be appliedto any drug of abuse test result, particularly whenpreliminary positive results are used. URINE TCA TESTING MUST BE ORDERED SEPARATELY. USE TESTMNEMONIC: [facility] Urine Methadone Screen Negative < 300 ng/mL [facility] Platelets bldOrdered By: Julianna Mejias on 11-27-2022 Platelets (Bld) [#/Vol] 418 10*3/uL Normal 150-450 [facility] Comment on above: Performed By: #### L 700.6800, L505.5000, L100.0100, L500.4050, L501.9100 #### [facility] [address] [place], [place], [address] ,Serum,hCG Quali.on 11-27-2022 HCG, SERUM QUAL Negative Normal [facility] Comment on above: Performed By: #### L 700.6800, L505.5000, L100.0100, L500.4050, L501.9100 #### [facility] [address] [place], [place], [id number] Protein Test strip Ql (U)Ord ered By: Power Mejias on 11-27-2022 Protein Ql (U) Negative Negative [facility] Serum or plasma albumin mikael urement (mass/volume)Ordered By: Power Mejias on 11-27-2022 Albumin [Mass/Vol] 3.7 g/dL 3.2-5.0 [facility] Serum or plasma albumin/glob ulin mass ratioOrdered By: Power Mejias on 11-27-2022 Albumin/Globulin [Mass ratio] 0.9 {ratio} 0.9-2.4 [facility] Serum or plasma calcium mikael urement (mass/volume)Ordered By: Power Mejias on 11-27-2022 Calcium [Mass/Vol] 9.6 mg/dL 8.5-10.1 [facility] Serum or plasma creatinine m easurement (mass/volume)Ordered By: Power Mejias on 11-27-2022 Creatinine [Mass/Vol] 0.70 mg/dL 0.55-1.02 [facility] Comment on above: The validity of the calculated GFR & GFRAA in patients over 70 years has not been determined. Clinical correlation is essential. Serum or plasma urea nitroge n measurement (mass/volume)Ordered By: Power Mejias on 11-27-2022 Urea nitrogen [Mass/Vol] 7 mg/dL 7-18 [facility] Squamous epithelial cells de tection in urine sediment by light microscopyOrdered By: Power Mejias on 11-27-2022 Epithelial cells.squamous LM Ql (Urine sed) 0-5 SEEN /hpf 5-10 [facility] Thin prep Papanicolaou smear with manual screeningOrdered By: Power Mejias on 11-27-2022 Thin prep Papanicolaou smear with manual screening 15 U/L 15-37 [facility] Thin prep Papanicolaou smear with manual screening 6 5-15 [facility] Urinalysis, Completeon 11-27 EPI,SQUAMOUS 0-5 SEEN Normal 5-10 [facility] Comment on above: Order Comment: CLEAN CATCH Performed By: #### L 400.0001 #### [facility] [address] [place], [address] WBC 0-5 SEEN Normal 0-5 [facility] Comment on above: Order Comment: CLEAN CATCH Performed By: #### L 400.0001 #### [facility] [address] [place], [address] BACTERIA 0 SEEN Normal None Seen [facility] Comment on above: Order Comment: CLEAN CATCH Performed By: #### L 400.0001 #### [facility] [address] [place], [address] Mucus Ql (Urine sed) 0 SEEN Normal [facility] Comment on above: Order Comment: CLEAN CATCH Performed By: #### L 400.0001 #### [facility] [address] [place], [address] RBC 0 SEEN Normal 0-5 [facility] Comment on above: Order Comment: CLEAN CATCH Performed By: #### L 400.0001 #### [facility] [address] [place], [address] Urine Drug Screen (VISTA)on 11-27-2022 AMPHETAMINES Negative Normal <1000 ng/mL [facility] Comment on above: Performed By: #### L 700.6800, L505.5000, L100.0100, L500.4050, L501.9100 #### [facility] [address] [place], [address] BARBITIURATES Negative Normal < 200 ng/mL [facility] Comment on above: Performed By: #### L 700.6800, L505.5000, L100.0100, L500.4050, L501.9100 #### [facility] [address] [place], [address] BENZODIAZIPINE Negative Normal < 200 ng/mL [facility] Comment on above: Performed By: #### L 700.6800, L505.5000, L100.0100, L500.4050, L501.9100 #### [facility] [address] [place], [address] COCAINE Negative Normal < 300 ng/mL [facility] Comment on above: Performed By: #### L 700.6800, L505.5000, L100.0100, L500.4050, L501.9100 #### [facility] [address] [place], [place], [facility] ECSTACY Negative Normal < 500 ng/mL [facility] Comment on above: Performed By: #### L 700.6800, L505.5000, L100.0100, L500.4050, L501.9100 #### [facility] [address] [place], [place], [facility] METHADONE Negative Normal < 300 ng/mL [facility] Comment on above: Performed By: #### L 700.6800, L505.5000, L100.0100, L500.4050, L501.9100 #### [facility] [address] [place], [address] OPIATES Negative Normal < 300 ng/mL [facility] Comment on above: Performed By: #### L 700.6800, L505.5000, L100.0100, L500.4050, L501.9100 #### [facility] [address] [place], [address] PCP Negative Normal < 25 ng/mL [facility] Comment on above: Performed By: #### L 700.6800, L505.5000, L100.0100, L500.4050, L501.9100 #### [facility] [address] [place], [address] THC Positive Abnormal < 50 ng/mL [facility] Comment on above: Performed By: #### L 700.6800, L505.5000, L100.0100, L500.4050, L501.9100 #### [facility] [address] [place], [address] VISTA UDS PH 6 Normal [facility] Comment on above: Performed By: #### L 700.6800, L505.5000, L100.0100, L500.4050, L501.9100 #### [facility] [address] [place], [address] Urine blood detectionOrdered By: Power Mejias on 11-27-2022 RBC Ql (U) Negative Negative [facility] RBC Ql (U) 0 SEEN /hpf 0-5 [facility] Urine clarityOrdered By: Julianna Mejias on 11-27-2022 Clarity (U) Clear Clear [facility] Urine color determinationOrd ered By: Power Mejias on 11-27-2022 Color (U) Yellow Yellow [facility] Urine glucose detectionOrder ed By: Power Mejias on 11-27-2022 Glucose Ql (U) Normal mg/dl Normal [facility] Urine leukocyte esterase det ection by dipstickOrdered By: Power Mejias on 11-27-2022 Leukocyte esterase Test strip Ql (U) 25 /ul Negative [facility] Urine pHOrdered By: Power lin on 11-27-2022 pH (U) 6.5 [pH] 5.0 - 8.0 [facility] Urine phencyclidine (PCP) de tectionOrdered By: Power Mejias on 11-27-2022 Phencyclidine Ql (U) Negative < 25 ng/mL [facility] Urine sediment bacteria coun t by microscopy (number/high power field)Ordered By: Power Mejias on 11-27-2022 Bacteria LM.HPF (Urine sed) [#/Area] 0 /[HPF] None Seen [facility] Urine specific gravity measu rementOrdered By: Power Mejias on 11-27-2022 Specific gravity (U) [Rel density] 1.010 1.002-1.030 [facility] Urobilinogen Auto test strip Ql (U)Ordered By: Power Mejias on 11-27-2022 Urobilinogen Ql (U) Normal mg/dl Normal [facility] - Blood bankon Rh Nom (Bld) Positive [facility] No Panel Informationon 10-23 ABO A [facility] TYPE AND SCREEN,30 DAYon HIstorical Ab Scr Status Negative [facility] MRI HIP WO IVCON RTon 2022 [facility] MR Brain WO and W contrast I Von 03-18-2022 IMPRESSION: 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 COMMUNICATION: Communicated with LV HERNANDEZ on 03/18/2022 11:58 AM via verbal communication. Maintenance And Engineering Manager: CLAUDIA Transcribe Date/Time: Mar 18 2022 11:41A Dictated by : LACY JOHNS MD This examination was interpreted and the report reviewed and electronically signed by: LACY JOHNS MD on Mar 18 2022 11:58AM [facility] DIVISION OF RADIOLOGY * * *Final Report* * * DATE OF EXAM: Mar 18 2022 10:36AM [facility] 0295 - MRI BRAIN WO/W IVCON / PROCEDURE REASON: multiple diagnoses * * * * Physician Interpretation * * * * EXAMINATION: MRI BRAIN WO/W IVCON CLINICAL HISTORY: Recent onset episodes of altered state of awareness, memory loss and abdi vu suggesting seizures. Technique: Coronal and axial LENIN-FLAIR, coronal LENIN-T2, axial diffusion, and high resolution sagittal gradient echo volume acquisition of the brain with coronal reconstructions. Gadolinium enhanced coronal T1 and axial gradient echo volume acquisitions of the brain. None Contrast: 16 mL Dotarem IV Comparison: None RESULT: Acute Change: There is no evidence of an acute intracranial process. Hemorrhage: No clear evidence of prior parenchymal hemorrhage within the constraints of acquisition. Mass Lesion/ Mass Effect: There is relatively large, well-defined soft tissue mass in the mesial right temporal lobe extends from the region of the rhinal sulcus dorsally in the right parahippocampal gyrus, right hippocampal head, and ventral right hippocampal body the adjacent uncus and extends dorsally to the coronal plane of the interpeduncular cistern. This mass is heterogeneously hyperintense on T2 and hypointense on T1 with facilitated diffusion suggesting a multicystic focus as seen in the setting of a DNET. There is minimal if any stippled enhancement in the ventral aspect of the mass. Overall, this measures approximately 2.5 x 2.8 x 1.7 cm in greatest AP, transverse, and CC dimensions, respectively. These findings account for localized effacement of the sulci and compression and cephalad displacement of the overlying amygdala. Hippocampi: The above-described mass clearly infiltrates the head and anterior body of the right hippocampus. 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 The left hippocampus appears to be within normal limits of signal intensity and morphology. Chronic Change: No evidence of focal or regional parenchymal volume loss otherwise. The white matter is within normal limits of signal intensity for the patient's chronologic age. Parenchyma: No significant generalized parenchymal volume loss for age. The brain parenchyma is otherwise within normal limits of signal intensity and morphology. 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 Additional note is made of herniation of the cerebellar tonsils and vermis through the foramen magnum to the C1 level, compatible with a Chiari I malformation. This results in mild compression of the cervical medullary junction. No evidence of syrinx formation in the visualized cervical spinal cord. Ventricles: Relatively small fourth ventricle, related to the Chiari I malformation. Lateral and third ventricles are within normal limits of size and configuration for age. Other: The visualized paranasal sinuses and mastoid air cells are clear. The orbits and extracranial soft tissues are unremarkable. DIVISION OF RADIOLOGY Provider, [facility] - 03/18/2022 * * *Final Report* * * DATE OF EXAM: Mar 18 2022 10:36AM [facility] 0295 - MRI BRAIN WO/W IVCON / PROCEDURE REASON: multiple diagnoses * * * * Physician Interpretation * * * * EXAMINATION: MRI BRAIN WO/W IVCON CLINICAL HISTORY: Recent onset episodes of altered state of awareness, memory loss and abdi vu suggesting seizures. Technique: Coronal and axial LENIN-FLAIR, coronal LENIN-T2, axial diffusion, and high resolution sagittal gradient echo volume acquisition of the brain with coronal reconstructions. Gadolinium enhanced coronal T1 and axial gradient echo volume acquisitions of the brain. None Contrast: 16 mL Dotarem IV Comparison: None RESULT: Acute Change: There is no evidence of an acute intracranial process. Hemorrhage: No clear evidence of prior parenchymal hemorrhage within the constraints of acquisition. Mass Lesion/ Mass Effect: There is relatively large, well-defined soft tissue mass in the mesial right temporal lobe extends from the region of the rhinal sulcus dorsally in the right parahippocampal gyrus, right hippocampal head, and ventral right hippocampal body the adjacent uncus and extends dorsally to the coronal plane of the interpeduncular cistern. This mass is heterogeneously hyperintense on T2 and hypointense on T1 with facilitated diffusion suggesting a multicystic focus as seen in the setting of a DNET. There is minimal if any stippled enhancement in the ventral aspect of the mass. Overall, this measures approximately 2.5 x 2.8 x 1.7 cm in greatest AP, transverse, and CC dimensions, respectively. These findings account for localized effacement of the sulci and compression and cephalad displacement of the overlying amygdala. Hippocampi: The above-described mass clearly infiltrates the head and anterior body of the right hippocampus. 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 The left hippocampus appears to be within normal limits of signal intensity and morphology. Chronic Change: No evidence of focal or regional parenchymal volume loss otherwise. The white matter is within normal limits of signal intensity for the patient's chronologic age. Parenchyma: No significant generalized parenchymal volume loss for age. The brain parenchyma is otherwise within normal limits of signal intensity and morphology. 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 Additional note is made of herniation of the cerebellar tonsils and vermis through the foramen magnum to the C1 level, compatible with a Chiari I malformation. This results in mild compression of the cervical medullary junction. No evidence of syrinx formation in the visualized cervical spinal cord. Ventricles: Relatively small fourth ventricle, related to the Chiari I malformation. Lateral and third ventricles are within normal limits of size and configuration for age. Other: The visualized paranasal sinuses and mastoid air cells are clear. The orbits and extracranial soft tissues are unremarkable. 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 COMMUNICATION: Communicated with LV HERNANDEZ on 03/18/2022 11:58 AM via verbal communication. Maintenance And Engineering Manager: CLAUDIA Transcribe Date/Time: Mar 18 2022 11:41A Dictated by : LACY JOHNS MD This examination was interpreted and the report reviewed and electronically signed by: LACY JOHNS MD on Mar 18 2022 11:58AM EST [facility] Radiology Study observation (narrative) [facility] MR Brain WO and W contrast I VOrdered By: [facility] Provider on 03-18-2022 [facility] XR Pelvis and Hip - right AP and Lateral frogon 03-01-2022 IMPRESSION: 1. No acute right hip abnormality 2. Nonaggressive appearing sclerotic lesion in the right femoral neck possibly bone island. Follow-up recommended as clinically indicated Maintenance And Engineering Manager: CLAUDIA Transcribe Date/Time: Mar 01 2022 8:55A Dictated by : DOTTIE ANDINO MD This examination was interpreted and the report reviewed and electronically signed by: DOTTIE ANDINO MD on Mar 01 2022 9:02AM [facility] DIVISION OF RADIOLOGY * * *Final Report* * * DATE OF EXAM: Feb 28 2022 4:04PM [facility] 5352 - XR HIP 3V PELV+ AP/LAT RT / PROCEDURE REASON: Pain * * * * Physician Interpretation * * * * Right hip radiographs HISTORY: Pain TECHNIQUE: 3 views of the right hip COMPARISON: Abdomen radiographs 08/07/2020 FINDINGS: No acute fracture, erosions or avascular necrosis. Right hip joint space is preserved. Circumscribed ovoid sclerotic opacity medially in the base of the right femoral neck measuring 2.4 x 0.7 x 1.0 cm. This is relatively unchanged since the prior study on 08/07/2020. The remainder of the right hip region osseous structures are intact. Periarticular soft tissues are unremarkable. Transitional vertebra at the lumbosacral junction again noted. The remainder the pelvic bones are intact. [facility] * * *Final Report* * * DATE OF EXAM: Feb 28 2022 4:04PM [facility] 5352 - XR HIP 3V PELV+ AP/LAT RT / PROCEDURE REASON: Pain * * * * Physician Interpretation * * * * Right hip radiographs HISTORY: Pain TECHNIQUE: 3 views of the right hip COMPARISON: Abdomen radiographs 08/07/2020 FINDINGS: No acute fracture, erosions or avascular necrosis. Right hip joint space is preserved. Circumscribed ovoid sclerotic opacity medially in the base of the right femoral neck measuring 2.4 x 0.7 x 1.0 cm. This is relatively unchanged since the prior study on 08/07/2020. The remainder of the right hip region osseous structures are intact. Periarticular soft tissues are unremarkable. Transitional vertebra at the lumbosacral junction again noted. The remainder the pelvic bones are intact. IMPRESSION IMPRESSION: 1. No acute right hip abnormality 2. Nonaggressive appearing sclerotic lesion in the right femoral neck possibly bone island. Follow-up recommended as clinically indicated Maintenance And Engineering Manager: CLAUDIA Transcribe Date/Time: Mar 01 2022 8:55A Dictated by : DOTTIE ANDINO MD This examination was interpreted and the report reviewed and electronically signed by: DOTTIE ANDINO MD on Mar 01 2022 9:02AM EST [facility] XR Pelvis and Hip - right AP and Lateral frogOrdered By: Ccf Provider on 03-01-2022 [facility] XR Pelvis and Hip - right AP and Lateral frogon 02-28-2022 Radiology Study observation (narrative) [facility] ANES POSTPROC EVALon 13-2 022 ANES POSTPROC EVAL HNO ID: [id number] Author: Parish Velez MD Service: Anesthesiology Author Type: Anesthesiologist Type: Anesthesia Postprocedure Evaluation Filed: 10/08/2021 4:59 PM Note Text: POST ANESTHESIA EVALUATION NOTE : 2001 Procedure Summary Date: 10/08/21 Room / Location: [place] [address] / [facility] Anesthesia Start: 1444 Anesthesia Stop: 1554 Procedure: ARTHROSCOPY KNEE LYSIS OF ADHESIONS- Cyclops Lesion Excision (Right Knee) Diagnosis: S/P right knee surgery Tear of lateral meniscus of right knee, unspecified tear type, unspecified whether old or current tear, initial encounter Cyclops lesion of right knee Surgeons: Jaida Chang MD Responsible Provider: Parish Velez MD Anesthesia Type: general ASA Status: 2 Anesthesia Type: general Airway Type: LMA Last Vitals Vitals Value Taken Time BP 104/55 10/08/21 1630 Temp 37 ?C (98.6 ?F) 10/08/21 1630 HR SpO2 71 10/08/21 1630 Resp 16 10/08/21 1630 SpO2 95 % 10/08/21 1630 Post Anesthesia Patient Status Patient Evaluation: PACU. PACU/ICU Patient Condition: stable. Anticipated Disposition: phase 2 then home. Neurological Status: aware and responsive. Pulmonary Status: breathing comfortably on room air Airway Control: returned to baseline unsupported. Cardiovascular Status: stable. Pain Management: clinically adequate - multimodal analgesia pain management approach Postoperative Hydration: acceptable. Intraoperative Events: no significant anesthesia events Recommendation: continue current plan of care. Anesthesia Observations No Documentation SIGNATURE: Parish Velez MD PATIENT NAME: Fabian Menjivar DATE: October 08, 2021 TIME: 4:59 PM CSN: [id number] [facility] ANES PRE-OPon 10-08-2021 ANES PRE-OP HNO ID: [id number] Author: Dionte Hayes III, MD Service: Anesthesiology Author Type: Anesthesiologist Type: Anesthesia Preprocedure Evaluation Filed: 10/08/2021 1:20 PM Note Text: ANESTHESIOLOGY DAY OF SURGERY NOTE : 2001 Procedure Information Date/Time: 10/08/21 1400 Procedures: ARTHROSCOPY KNEE W/ MENISCECTOMY LATERAL (Right Knee) - right knee arthroscopy, fat pad debridement and dissection, cyclops excision and possible partial lateral meniscectomy. ARTHROSCOPY KNEE LYSIS OF ADHESIONS- Cyclops Lesion Excision (Right Knee) ARTHROSCOPY KNEE ARTICULAR CARTILAGE SHAVING OR DEBRIDEMENT- Fat Pad (Right Knee) ARTHROSCOPY KNEE SYNOVECTOMY LIMITED (Right ) Location: [facility] Surgeons: Jaida Chang MD Estimated body mass index is 33.8 kg/m? as calculated from the following: Height as of this encounter: 157.5 cm (5' 2). Weight as of this encounter: 83.8 kg (184 lb 12.8 oz). Most recent hematocrit and potassium results: Hematocrit 40.9 05/12/2020 Potassium 4.3 05/12/2020 Relevant Problems GI (+) Hiatal hernia I - PHYSICAL EVALUATION AIRWAY Patient intubated: No. Tracheostomy tube not present Mallampati: I. TM distance: >3 FB. Neck ROM: full ROM without neurological symptoms. Mouth opening: adequate. Short neck: no. Thick neck: no DENTAL Dental findings: teeth intact. Additional exam findings: yes. CARDIOVASCULAR Normal cardiovascular observations. PULMONARY Normal pulmonary observations. II - ANESTHESIA PLAN ASA Score: 2 Anesthetic Plan: general Airway type: LMA The patient is not a current smoker. NPO Status: adequate Beta Megan Administration of chronic beta megan medication not planned. Monitoring plan: standard ASA. Postoperative analgesic plan: multimodal analgesia. Informed Consent Anesthetic risks, benefits, alternatives, personnel and consent discussed: yes. Patient / Responsible Republican agrees to proceed: yes Patient / Surrogate agrees to blood products: blood products not planned DNR status not reviewed with patient and/or family prior to surgery. Significant changes in the patient condition since the History and Physical, not otherwise documented in primary service progress note: no. Potential Anesthesia issues that may suggest increased risk of complications or contraindication to planned procedure: none. Vitals Value Taken Time BP 116/54 10/08/21 1239 Pulse 81 10/08/21 1239 Resp 19 10/08/21 1239 Temp 36.4 ?C (97.5 ?F) 10/08/21 1239 SpO2 98 % 10/08/21 1239 Facility-Administered Medications as of 10/08/2021 Medication Dose Route Frequency - lactated ringers iv infusion 5-30 mL/hr INTRAVENOUS CONTINUOUS Outpatient Medications as of 10/08/2021 Medication Sig - dicyclomine (BENTYL) 10 mg capsule Take one before dinner. May repeat at bedtime, as needed. - escitalopram oxalate (LEXAPRO) 20 mg tablet Take 1 tablet by mouth once daily - Drospirenone-Ethinyl Estradiol (LUCIANO 28) 3-0.02 mg per tablet Take by mouth. - naproxen (NAPROSYN) 500 mg tablet Take 1 tablet by mouth twice daily as needed (for pain). Take with food I have interviewed and examined the patient. I have reviewed the medical record and/or the pre-anesthesia evaluation, pertinent labs, and test results. This contains updated information obtained within 48 hours of Surgery/Procedure. SIGNATURE: Dionte Hayes MD PATIENT NAME: Fabian Menjivar DATE: October 08, 2021 TIME: 1:19 PM CSN: [id number] [facility] BRIEF OP NOTon 10-08-2021 BRIEF OP NOT HNO ID: [id number] Author: Alvaro Lewis MD Service: Orthopaedic Surgery Author Type: Resident Type: Brief Op Note Filed: 10/08/2021 3:49 PM Note Text: BRIEF OP NOTE LOG ID: [id number] Surgery/Procedure Date: 10/08/2021 Incision/Procedure Start Time: 3:10 PM Incision Close/Procedure End Time: 3:46 PM Surgeon(s)/Procedurali st(s) and Acoustical Tile Drill Press Operator(s): Surgeon(s) and Role: * Jaida Chang MD - Primary * Alvaro Lewis MD - Resident - Assisting Procedure(s): R knee cyclops excision Anesthesia: General Findings: R knee cyclops lesion Estimated Blood Loss: 5 mls Specimens: None Complications: None Pre-Op/Pre-Procedure Diagnosis: R knee cyclops Post-Op/Post-Procedure Diagnosis: Same Pre-operatively, a complete plan of care visit was completed: Plan of care discussed with: Provider, RN, Patient. SIGNATURE: Alvaro Lewis MD PATIENT NAME: Fabian Menjivar DATE: October 08, 2021 TIME: 3:49 PM PAGER/CONTACT #: [phone] [facility] NURSING PROGon 10-08-2021 NURSING PROG HNO ID: [id number] Author: Stephanie Ochoa RN Service: Nursing Author Type: Registered Nurse Type: Nursing Progress Note Filed: 10/08/2021 4:51 PM Note Text: 1550 pt rec'd to pacu, pt slightly drowsy but responds appropriately. 1618 pt up to toilet with staff assist. Able to void without difficulty 1625 Pt parents at bedside. DC instructions reviewed with all three. Questions answered r/t home care. Encouraged to call Dr. Chang's office with any questions after getting home. 1638 pt readied for dc home. [facility] OPERATIVE NOon 10-08-2021 OPERATIVE NO HNO ID: [id number] Author: Jaida Chang MD Service: Orthopaedic Surgery Author Type: Physician Type: Operative Report Filed: 10/18/2021 9:09 AM Note Text: OPERATIVE REPORT Fabian Menjivar [id number] DATE OF PROCEDURE: October 08, 2021 SURGEON: Jaida Chang MD PULP GRINDER AND BLENDER: Ahmet Lewis MD (Resident) PREOPERATIVE DIAGNOSIS: 1. Right knee cyclops lesion 2. Right knee lateral meniscus tear POSTOPERATIVE DIAGNOSIS: 1. Right knee cyclops lesion. 2. Right knee synovitis OPERATION: 1. Right knee arthroscopy, cyclops debridement 2. Right knee diagnostic athroscopy 3. Examination under anesthesia ANESTHESIA: General COMPONENTS: 1. None CLINICAL NOTE: Fabian Menjivar is a 21 year old female with right knee persistan pain.. The patient has failed conservative management, and because of that we talked to the patient about operative intervention. We explained the risks, benefits, alternative procedures, expected outcomes, as well as the length of convalescence. Having understood that, informed consent has been signed. The patient's operative extremity was marked in the preoperative holding area. The patient received antibiotics by the anesthesia team without any complications. The patient was taken to the operating room on October 08, 2021 in stable condition. DESCRIPTION OF OPERATION: Once in the operating room, brief time-out was taken by nursing team, Anesthesia, and surgical staff, and confirming the patient's operative site was the right lower extremity. At this point in time, the patient was placed supine on operative table. All bony prominences were well padded. IV sedation was given to the patient. Once asleep, monitored anesthesia care was given with general inhalation anesthetics for duration of the case. At this point in time, examination under anesthesia revealed the following findings: 1. Knee range of motion: 0/0/135 degrees 2. No patellofemoral instability. 3. Negative Gaby exam. 4. Negative posterior drawer. 5. Stable varus and valgus stress testing at 0 and 30 degrees. Following examination under anesthesia, patient's nonoperative leg was placed into an Dusty stirrup with femoral nerve free from traction, peroneal nerve free from pressure. At this point in time, the operative extremity was placed into a Dyonics leg sanchez with a nonsterile tourniquet applied to the upper thigh. At this point in time, the patient's operative extremity was then prepped and draped in the usual sterile fashion. Portal sites were infiltrated with 0.25% Marcaine and epinephrine. At this point in time, inferomedial, inferolateral, and parapatellar tendon portals were established as well as superolateral outflow portal. Diagnostic arthroscopy was undertaken, revealing the following findings: 1. Patellar articular cartilage: normal 2. Trochlea articular cartilage: Normal. 3. Medial femoral condyle articular cartilage: Normal. 4. Medial meniscus: Intact repair. No new tear. 5. Medial tibial plateau articular cartilage: Normal. 6. Anterior cruciate ligament: Post reconstruction. Intact. Large cyclops lesion anterior to the ACL. 7. Posterior cruciate ligament: Normal. 8. Lateral femoral condyle articular cartilage: Normal. 9. Lateral meniscus: Prior partial lateral meniscectomy. No new tear 10. Lateral tibial plateau articular cartilage: Normal. Shaver was used to debride the cyclops lesion. Incisions were copiously irrigated. We closed the wounds with absorbable suture. The patient was awakened from anesthesia and taken to the PACU in stable condition. It should be noted that I was present for and performed all duarte portions of the procedure. All operative times are per the [facility] brief operative note. POSTOPERATIVE PLAN: The patient will be weightbearing as tolerated with the right lower extremity. The patient will follow our manipulation under anesthesia program. Jaida Chang MD [facility] XR Knee - right AP and Later shaniqua 10-13-2020 IMPRESSION: Prior placement of an ACL graft. No fracture. Joint effusion. Maintenance And Engineering Manager: CLAUDIA Transcribe Date/Time: Oct 13 2020 1:40P Dictated by : DAMIAN NG MD This examination was interpreted and the report reviewed and electronically signed by: DAMIAN NG MD on Oct 13 2020 1:42PM [facility] DIVISION OF RADIOLOGY * * *Final Report* * * DATE OF EXAM: Oct 13 2020 1:01PM STX 5207 - XR KNEE 2V AP/LAT RT / PROCEDURE REASON: Rupture of anterior cruciate ligament of right knee, initial encounter * * * * Physician Interpretation * * * * Right knee radiographs HISTORY: 20 years old Clinical information: Rupture of anterior cruciate ligament of right knee, initial encounter ACL SURGERY FOLLOW UP TECHNIQUE: Images: XR KNEE 2V AP/LAT RT Comparison: None. RESULT: Findings: Prior ACL graft placement with tunnels involving the distal femur and proximal tibia and anchor involving the lateral aspect of the distal femur. No fracture or dislocation. Joint effusion. [facility] * * *Final Report* * * DATE OF EXAM: Oct 13 2020 1:01PM STX 5207 - XR KNEE 2V AP/LAT RT / PROCEDURE REASON: Rupture of anterior cruciate ligament of right knee, initial encounter * * * * Physician Interpretation * * * * Right knee radiographs HISTORY: 20 years old Clinical information: Rupture of anterior cruciate ligament of right knee, initial encounter ACL SURGERY FOLLOW UP TECHNIQUE: Images: XR KNEE 2V AP/LAT RT Comparison: None. RESULT: Findings: Prior ACL graft placement with tunnels involving the distal femur and proximal tibia and anchor involving the lateral aspect of the distal femur. No fracture or dislocation. Joint effusion. IMPRESSION IMPRESSION: Prior placement of an ACL graft. No fracture. Joint effusion. Maintenance And Engineering Manager: [facility] Transcribe Date/Time: Oct 13 2020 1:40P Dictated by : DAMIAN NG MD This examination was interpreted and the report reviewed and electronically signed by: DAMIAN NG MD on Oct 13 2020 1:42PM EST [facility] Radiology Study observation (narrative) [facility] XR Knee - right AP and Later alOrdered By: Ccf Provider on 10-13-2020 [facility] Office Visiton 03-27-2017 Documentation of current medications (procedure) Done Invalid Interpretation Code [facility] Work Phone: Tobacco smoking status NHIS Never Invalid Interpretation Code [facility] Work Phone: Tobacco smoking status NHIS Tobacco smoking status NHIS Invalid Interpretation Code [facility] Work Phone: [phone] Tobacco use [facility] Never smoker Invalid Interpretation Code [facility] Work Phone: [phone] Office Visiton 12-24-2016 Documentation of current medications (procedure) Done Invalid Interpretation Code [facility] Work Phone: [phone] Protein mass conc Done [facility] Work Phone: [phone] Tobacco smoking status NHIS Never Invalid Interpretation Code [facility] Work Phone: [phone] Tobacco smoking status NHIS Never smoker [facility] Work Phone: [phone] Tobacco use [facility] Never smoker Invalid Interpretation Code [facility] Work Phone: [phone] Office Visiton 11-07-2016 Documentation of current medications (procedure) Done Invalid Interpretation Code [facility] Work Phone: [phone] Office Visiton 10-10-2016 Documentation of current medications (procedure) Done Invalid Interpretation Code [facility] Work Phone: [phone] Protein mass conc [facility] Work Phone: [phone] Tobacco smoking status NHIS Never Invalid Interpretation Code [facility] Work Phone: [phone] Tobacco smoking status NHIS Never smoker [facility] Work Phone: [phone] Tobacco use [facility] Never smoker Invalid Interpretation Code [facility] Work Phone: [phone] Office Visiton 09-24-2016 Documentation of current medications (procedure) Done Invalid Interpretation Code [facility] Work Phone: [phone] Tobacco smoking status NHIS Never Invalid Interpretation Code [facility] Work Phone: [phone] Tobacco use [facility] Never smoker Invalid Interpretation Code [facility] Work Phone: [phone] Office Visiton 09-05-2016 Documentation of current medications (procedure) Done Invalid Interpretation Code [facility] Work Phone: [phone] Tobacco smoking status NHIS Never [facility] Work Phone: [phone] Tobacco smoking status NHIS Never smoker [facility] Work Phone: [phone] Tobacco use [facility] Never smoker Invalid Interpretation Code [facility] Work Phone: [phone] Office Visit: left knee pain on 08-20-2016 Documentation of current medications (procedure) Done Invalid Interpretation Code [facility] Work Phone: [phone] Tobacco smoking status NHIS Never Invalid Interpretation Code [facility] Work Phone: [phone] Tobacco use [facility] Never smoker Invalid Interpretation Code [facility] Work Phone: [phone] Vital Signs Date Time Vital Sign Value Performing Clinician Facility 09-27-2024 09:29-0400 Body height 161.5 cm Braulio Troncoso MD Work Phone: [facility] 09-27-2024 09:29-0400 Body mass index (BMI) [Ratio] 35.33 kg/m2 Braulio Troncoso MD Work Phone: [facility] 09-27-2024 09:29-0400 Body weight 92.2 kg Braulio Troncoso MD Work Phone: [facility] 09-27-2024 09:29-0400 Diastolic blood pressure 70 mm[Hg] Braulio Troncoso MD Work Phone: [facility] 09-27-2024 09:29-0400 Heart rate 80 /min Braulio Troncoso MD Work Phone: [facility] 09-27-2024 09:29-0400 Respiratory rate 18 /min Braulio Troncsoo MD Work Phone: [facility] 09-27-2024 09:29-0400 Systolic blood pressure 116 mm[Hg] Braulio Troncoso MD Work Phone: [facility] 04-29-2024 08:03-0500 Body mass index (BMI) [Ratio] 33.63 kg/m2 Eligio Haarnold 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 Work Phone: [facility] 04-29-2024 08:03-0500 Body weight 89.36 kg Eligio Haury 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 Work Phone: [facility] 04-29-2024 08:03-0500 Diastolic blood pressure 70 mm[Hg] Eligio Haury 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 Work Phone: [facility] 04-29-2024 08:03-0500 Systolic blood pressure 114 mm[Hg] Eligio Haury 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 Work Phone: [facility] 02-16-2024 10:58-0400 Body mass index (BMI) [Ratio] 34.25 kg/m2 Dionte Fu MD Work Phone: [facility] 02-16-2024 10:58-0400 Body temperature 97 [degF] Dionte Fu MD Work Phone: [facility] 02-16-2024 10:58-0400 Body weight 90.99 kg Dionte Fu MD Work Phone: [facility] 02-16-2024 10:58-0400 Diastolic blood pressure 74 mm[Hg] Dionte Fu MD Work Phone: [facility] 02-16-2024 10:58-0400 Heart rate 84 /min Dionte Fu MD Work Phone: [facility] 02-16-2024 10:58-0400 Respiratory rate 16 /min Dinote Fu MD Work Phone: [facility] 02-16-2024 10:58-0400 Systolic blood pressure 118 mm[Hg] Dionte Fu MD Work Phone: [facility] 02-16-2024 10:14-0400 Body height 163 cm Eligio Haarnold 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 Work Phone: [facility] 02-16-2024 10:14-0400 Body mass index (BMI) [Ratio] 34.32 kg/m2 Eligio Haury 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 Work Phone: [facility] 02-16-2024 10:14-0400 Body weight 91.17 kg Eligio Diez 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 Work Phone: [facility] 02-16-2024 10:14-0400 Diastolic blood pressure 70 mm[Hg] Eligio Diez 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 Work Phone: [facility] 02-16-2024 10:14-0400 Systolic blood pressure 122 mm[Hg] Eligio Diez 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 Work Phone: [facility] 01-09-2024 09:57-0400 Body height 157.5 cm Jake Cafaro PA-C Work Phone: [facility] 01-09-2024 09:57-0400 Body mass index (BMI) [Ratio] 38.41 kg/m2 Jake Cafaro PA-C Work Phone: [facility] 01-09-2024 09:57-0400 Body weight 95.25 kg Jake Cafaro PA-C Work Phone: [facility] 01-09-2024 09:57-0400 Diastolic blood pressure 69 mm[Hg] Jake Cafaro PA-C Work Phone: [facility] 01-09-2024 09:57-0400 Heart rate 98 /min Jake Cafaro PA-C Work Phone: [facility] 01-09-2024 09:57-0400 Respiratory rate 18 /min Jake Cafaro PA-C Work Phone: [facility] 01-09-2024 09:57-0400 SaO2% (BldA) [Mass fraction] 96 % Jake Cafaro PA-C Work Phone: [facility] 01-09-2024 09:57-0400 Systolic blood pressure 126 mm[Hg] Jake Cafaro PA-C Work Phone: [facility] 11-20-2023 09:17-0400 Body mass index (BMI) [Ratio] 37.49 kg/m2 Eligio Haury 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 Work Phone: [facility] 11-20-2023 09:17-0400 Body weight 92.99 kg Eligio Haury 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 Work Phone: [facility] 11-20-2023 09:17-0400 Diastolic blood pressure 78 mm[Hg] Eligio Haury 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 Work Phone: [facility] 11-20-2023 09:17-0400 Heart rate 112 /min Eligio Haury 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 Work Phone: [facility] 11-20-2023 09:17-0400 Respiratory rate 14 /min Eligio Haury 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 Work Phone: [facility] 11-20-2023 09:17-0400 SaO2% (BldA) [Mass fraction] 98 % Eligio Haury 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 Work Phone: [facility] 11-20-2023 09:17-0400 Systolic blood pressure 124 mm[Hg] Eligio Haury 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 Work Phone: [facility] 09-19-2023 09:32-0400 Body mass index (BMI) [Ratio] 38.08 kg/m2 Dionte Fu MD Work Phone: [facility] 09-19-2023 09:32-0400 Body temperature 97.11 [degF] Dionte Fu MD Work Phone: [facility] 09-19-2023 09:32-0400 Body weight 94.44 kg Dionte Fu MD Work Phone: [facility] 09-19-2023 09:32-0400 Heart rate 80 /min Dionte Fu MD Work Phone: [facility] 09-19-2023 09:32-0400 Respiratory rate 20 /min Dionte Fu MD Work Phone: [facility] 12-25-2022 14:46-0400 Body height 157.5 cm Helga Maher MD Work Phone: [facility] 12-25-2022 14:46-0400 Body weight 88 kg Helga Maher MD Work Phone: [facility] 12-25-2022 14:46-0400 Diastolic blood pressure 62 mm[Hg] Helga Maher MD Work Phone: [facility] 12-25-2022 14:46-0400 Systolic blood pressure 118 mm[Hg] Helga Maher MD Work Phone: [facility] 12-05-2022 10:20-0400 Body height 154.9 cm Saul Knox PA-C Work Phone: [facility] 12-05-2022 10:20-0400 Body weight 88.45 kg Saul Knox PA-C Work Phone: [facility] 12-05-2022 10:20-0400 Diastolic blood pressure 87 mm[Hg] Saul Knox PA-C Work Phone: [facility] 12-05-2022 10:20-0400 Heart rate 114 /min Saul Knox PA-C Work Phone: [facility] 12-05-2022 10:20-0400 Respiratory rate 18 /min Saul Knox PA-C Work Phone: [facility] 12-05-2022 10:20-0400 SaO2% (BldA) [Mass fraction] 97 % Saul Knox PA-C Work Phone: [facility] 12-05-2022 10:20-0400 Systolic blood pressure 127 mm[Hg] Saul Knox PA-C Work Phone: [facility] 11-29-2022 09:33-0400 Body temperature 96.8 [degF] Dionte Fu MD Work Phone: [facility] 11-29-2022 09:33-0400 Body weight 88.54 kg Dionte Fu MD Work Phone: [facility] 11-29-2022 09:33-0400 Diastolic blood pressure 74 mm[Hg] Dionte Fu MD Work Phone: [facility] 11-29-2022 09:33-0400 Heart rate 92 /min Dionte Fu MD Work Phone: [facility] 11-29-2022 09:33-0400 Respiratory rate 16 /min Dionte Fu MD Work Phone: [facility] 11-29-2022 09:33-0400 Systolic blood pressure 122 mm[Hg] Dionte Fu MD Work Phone: [facility] 11-27-2022 14:19-0400 Diastolic blood pressure 74 mm[Hg] [facility] 11-27-2022 14:19-0400 Heart rate 74 /min [facility] 11-27-2022 14:19-0400 Respiratory rate 16 /min [facility] 11-27-2022 14:19-0400 SaO2% (BldA) [Mass fraction] 99 % [facility] 11-27-2022 14:19-0400 Systolic blood pressure 116 mm[Hg] [facility] 11-27-2022 10:41-0400 Body height 157.48 cm [facility] 11-27-2022 10:41-0400 Body mass index (BMI) [Ratio] 32.9 kg/m2 [facility] 11-27-2022 10:41-0400 Body temperature 97.5 [degF] [facility] 11-27-2022 10:41-0400 Body weight 81.64 kg [facility] 10-23-2022 11:19-0400 Body height 157.5 cm Pacc 2 Work Phone: [facility] 10-23-2022 11:19-0400 Body temperature 97.39 [degF] Pacc 2 Work Phone: [facility] 10-23-2022 11:19-0400 Body weight 91.26 kg Pacc 2 Work Phone: [facility] 10-23-2022 11:19-0400 Diastolic blood pressure 63 mm[Hg] Pacc 2 Work Phone: [facility] 10-23-2022 11:19-0400 Heart rate 106 /min Pacc 2 Work Phone: [facility] 10-23-2022 11:19-0400 SaO2% (BldA) [Mass fraction] 97 % Pacc 2 Work Phone: [facility] 10-23-2022 11:19-0400 Systolic blood pressure 112 mm[Hg] Pacc 2 Work Phone: [facility] 10-09-2022 10:01-0400 Body height 160 cm Dionte Fu MD Work Phone: [facility] 10-09-2022 10:01-0400 Body temperature 97.5 [degF] Dionte Fu MD Work Phone: [facility] 10-09-2022 10:01-0400 Body weight 88 kg Dionte Fu MD Work Phone: [facility] 10-09-2022 10:01-0400 Diastolic blood pressure 60 mm[Hg] Dionte Fu MD Work Phone: [facility] 10-09-2022 10:01-0400 Heart rate 76 /min Dionte Fu MD Work Phone: [facility] 10-09-2022 10:01-0400 Respiratory rate 16 /min Dionte Fu MD Work Phone: [facility] 10-09-2022 10:01-0400 Systolic blood pressure 118 mm[Hg] Dionte Fu MD Work Phone: [facility] 04-17-2022 14:30-0500 Body height 157.5 cm Teri Wheat DO Work Phone: [facility] 04-17-2022 14:30-0500 Body weight 76.84 kg Teri Wheat DO Work Phone: [facility] 04-17-2022 14:30-0500 Diastolic blood pressure 69 mm[Hg] Teri Wheat DO Work Phone: [facility] 04-17-2022 14:30-0500 Heart rate 91 /min Teri Wheat DO Work Phone: [facility] 04-17-2022 14:30-0500 SaO2% (BldA) [Mass fraction] 97 % Teri Wheat DO Work Phone: [facility] 04-17-2022 14:30-0500 Systolic blood pressure 120 mm[Hg] Teri Wheat DO Work Phone: [facility] 04-11-2022 14:29-0500 Body height 159.5 cm Bobo Barnhart MD Work Phone: [facility] 04-11-2022 14:29-0500 Body temperature 97.9 [degF] Bobo Barnhart MD Work Phone: [facility] 04-11-2022 14:29-0500 Body weight 78.11 kg Bobo Barnhart MD Work Phone: [facility] 04-11-2022 14:29-0500 Diastolic blood pressure 71 mm[Hg] Bobo Barnhart MD Work Phone: [facility] 04-11-2022 14:29-0500 Heart rate 100 /min Bobo Barnhart MD Work Phone: [facility] 04-11-2022 14:29-0500 Respiratory rate 18 /min Bobo Barnhart MD Work Phone: [facility] 04-11-2022 14:29-0500 SaO2% (BldA) [Mass fraction] 100 % Bobo Barnhart MD Work Phone: [facility] 04-11-2022 14:29-0500 Systolic blood pressure 124 mm[Hg] Bobo Barnhart MD Work Phone: [facility] 02-21-2022 12:51-0400 Body height 157.5 cm Lv Hernandez DO Work Phone: [facility] 02-21-2022 12:51-0400 Body weight 80.74 kg Lv Hernandez DO Work Phone: [facility] 02-21-2022 12:51-0400 Diastolic blood pressure 75 mm[Hg] Lv Hernandez DO Work Phone: [facility] 02-21-2022 12:51-0400 Heart rate 75 /min Lv Hernandez DO Work Phone: [facility] 02-21-2022 12:51-0400 Systolic blood pressure 119 mm[Hg] Lv Hernandez DO Work Phone: [facility] 09-19-2021 09:42-0400 Body height 157.5 cm Pacc 2 Work Phone: [facility] 09-19-2021 09:42-0400 Body weight 81.65 kg Pacc 2 Work Phone: [facility] Encounters Encounter Date Encounter Type Care Provider Facility Start: 01-27-2025 End: 01-27-2025 ambulatory PATTI POON Facility:[facility] Start: 01-07-2025 End: 01-07-2025 [facility] Kang Buenrostro APRN.VENEER MATCHER Work Phone: Psychiatry Comment on above: Severe episode of re current major depressive disorder, without psychotic features (HCC) (Primary Dx); Mixed obsessional thoughts and acts; Psychosocial stressors; Encounter for long-term (current) use of medications; Insomnia due to mental condition Start: 01-07-2025 End: 01-07-2025 ambulatory KANG BUENROSTRO Facility:[facility] Start: 12-16-2024 End: 12-17-2024 Refill Kang Buenrostro APRN.VENEER MATCHER Work Phone: Psychiatry Comment on above: Refill Request Start: 11-16-2024 End: 11-17-2024 Refill Vicky Zavala MD Work Phone: Neurology Comment on above: Refill Request Start: 11-15-2024 End: 11-16-2024 Refill Braulio Troncoso MD Work Phone: [facility] Comment on above: Refill Request Start: 11-08-2024 End: 11-08-2024 [facility] Kang Buenrostro 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 Work Phone: Psychiatry Comment on above: Insomnia due to ment al condition (Primary Dx); Mixed obsessional thoughts and acts; Psychosocial stressors; Severe episode of recurrent major depressive disorder, without psychotic features (HCC); Marijuana use; Encounter for long-term (current) use of medications Start: 11-08-2024 End: 11-08-2024 ambulatory KANG BUENROSTRO Facility:[facility] Start: 11-04-2024 End: 11-04-2024 Refill Vicky Zavala MD Work Phone: Neurology Comment on above: Refill Request Start: 10-03-2024 End: 10-04-2024 Refill Iftikhar Cavanaugh 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 Work Phone: Neurology Comment on above: Refill Request Start: 09-28-2024 End: 09-28-2024 Patient encounter procedure Alvaro Magana MD Work Phone: Neurosurgery Comment on above: 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); Focal epilepsy with impairment of consciousness, intractable (HCC) Start: 09-28-2024 End: 09-28-2024 ambulatory ALVARO MAGANA Facility:[facility] Start: 09-28-2024 ambulatory SAUL KNOX Facility: [facility] Start: 09-28-2024 End: 09-28-2024 Subsequent hospital visit by physician Criss Gregory (I-Stat/3t) Work Phone: Radiology Comment on above: 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] Start: 09-27-2024 End: 09-27-2024 Patient encounter procedure Braulio Troncoso MD Work Phone: [facility] Comment on above: Does not have primar y care provider (Primary Dx); Hiatal hernia; Need for vaccination; Gastroesophageal reflux disease without esophagitis; Celiac disease (HCC); Moderate episode of recurrent major depressive disorder (HCC) Start: 09-27-2024 End: 09-27-2024 ambulatory BRAULIO Brito TRONCOSO Facility:[facility] Start: 09-24-2024 End: 09-24-2024 Get Medical Advice Kang Buenrostro 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 Work Phone: Psychiatry Comment on above: Desvenlaxfine, 50MG and 100 MG refill Start: 09-23-2024 End: 09-24-2024 ambulatory Kang Buenrostro 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 Work Phone: Psychiatry Comment on above: Desvenlafaxine, 50 M G and 100 MG Start: 09-07-2024 End: 09-11-2024 Refill Kang Buenrostro 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 Work Phone: Psychiatry Comment on above: Refill Request Start: 09-01-2024 End: 09-01-2024 [facility] Kang Buenrostro 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 Work Phone: Psychiatry Comment on above: Generalized anxiety disorder (Primary Dx); Moderate episode of recurrent major depressive disorder (HCC); Mixed obsessional thoughts and acts; Trauma and stressor-related disorder; Psychosocial stressors; Borderline personality disorder (HCC) Start: 09-01-2024 End: 09-01-2024 ambulatory KANG BUENROSTRO Facility:[facility] Start: 08-31-2024 End: 09-11-2024 Refill Monica Swann 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 Work Phone: [facility] Comment on above: Refill Request Start: 08-27-2024 End: 08-27-2024 Refill Iftikhar Cavanaugh 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 Work Phone: Neurology Comment on above: Refill Request Start: 08-20-2024 End: 08-20-2024 ambulatory [facility] Facility:[id number] Start: 08-20-2024 End: 08-20-2024 ambulatory [facility] Facility:[facility] Start: 08-05-2024 End: 08-06-2024 Refill Tamela Edmondson PA-C Work Phone: [facility] Comment on above: Refill Request Start: 08-04-2024 End: 08-04-2024 ambulatory KANG BUENROSTRO Facility:[facility] Start: 08-04-2024 End: 08-04-2024 [facility] Kang Buenrostro 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 Work Phone: Psychiatry Comment on above: Severe episode of re current major depressive disorder, without psychotic features (HCC) (Primary Dx); Borderline personality disorder (HCC); Mixed obsessional thoughts and acts; Encounter for long-term (current) use of medications; Trauma and stressor-related disorder; Psychosocial stressors; Impulse control disorder Start: 07-27-2024 End: 07-27-2024 Admission to same day surgery center Alvaro Magana MD Work Phone: Neurosurgery Comment on above: September 28 Appointment Start: 07-27-2024 End: 07-27-2024 ambulatory Alvaro Magana MD Work Phone: Neurosurgery Start: 07-26-2024 End: 07-27-2024 Telephone encounter Alvaro Magana MD Work Phone: Neurology Comment on above: general (Appointment ?) Start: 07-20-2024 End: 07-21-2024 Refill Iftikhar Cavanaugh 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 Work Phone: Neurology Comment on above: Refill Request Start: 07-19-2024 End: 07-20-2024 Admission to same day surgery center Alvaro Magana MD Work Phone: Neurosurgery Comment on above: MRI Start: 07-19-2024 End: 07-20-2024 ambulatory Alvaro Magana MD Work Phone: Neurosurgery Start: 07-07-2024 End: 07-07-2024 ambulatory KANG BUENROSTRO Facility:[facility] Start: 07-07-2024 End: 07-07-2024 [facility] Kang Buenrostro 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 Work Phone: Psychiatry Comment on above: Severe episode of re current major depressive disorder, without psychotic features (HCC) (Primary Dx); Encounter for long-term (current) use of medications; Medication side effect, initial encounter; Drug induced akathisia; Mixed obsessional thoughts and acts; Borderline personality disorder (HCC); Trauma and stressor-related disorder Start: 06-11-2024 End: 06-12-2024 Refill Tamela Edmondson PA-C Work Phone: [facility] Comment on above: Refill Request Start: 06-07-2024 End: 06-07-2024 Telephone encounter Kang Buenrostro APRN.VENEER MATCHER Work Phone: Psychiatry Start: 06-04-2024 End: 06-04-2024 ambulatory KANG BUENROSTRO Facility:[facility] Start: 06-04-2024 End: 06-04-2024 [facility] Kang Buenrostro 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 Work Phone: Psychiatry Comment on above: Severe episode of re current major depressive disorder, without psychotic features (HCC) (Primary Dx); Medication side effect, initial encounter; Drug induced akathisia; Borderline personality disorder (HCC); Mixed obsessional thoughts and acts; Psychosocial stressors; Encounter for long-term (current) use of medications; Trauma and stressor-related disorder; Alcohol use Start: 05-24-2024 ambulatory MARLIN Lizama ity:[facility] Start: 05-24-2024 End: 05-24-2024 Subsequent hospital visit by physician Marlin Davis [facility] Work Phone: [facility] Comment on above: MDD (major depressiv e disorder), recurrent episode, moderate (HCC) [F33.1] Start: 05-17-2024 End: 05-17-2024 Refill Iftikhar Cavanaugh 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 Work Phone: Neurology Comment on above: Refill Request Start: 05-10-2024 End: 05-10-2024 Refill Dionte Fu MD Work Phone: [facility] Comment on above: Refill Request Start: 04-29-2024 End: 04-29-2024 Telemedicine consultation with patient Tami Pastor PSYD Work Phone: Neurology Start: 04-29-2024 End: 04-29-2024 ambulatory TAMI PASTOR Facility:[facility] Start: 04-29-2024 End: 04-29-2024 ambulatory ELIGIO DIEZ Facility:[facility] Start: 04-29-2024 End: 04-29-2024 Patient encounter procedure Eligiosandhya Adornoarnold DE Work Phone: OB/Gynecology Comment on above: Screen for STD (sexu ally transmitted disease) (Primary Dx); Vaginal irritation; Urinary frequency Borderline personali ty disorder (HCC) (Primary Dx); MDD (major depressive disorder), recurrent episode, moderate (HCC); Generalized anxiety disorder; Cannabis abuse, uncomplicated Start: 04-26-2024 End: 04-26-2024 Refill Eligio Diez APRN.CNP Work Phone: OB/Gynecology Comment on above: Refill Request Start: 04-23-2024 End: 04-23-2024 [facility] Kang Buenrostro APRN.CNP Work Phone: Psychiatry Comment on above: Mixed obsessional th oughts and acts (Primary Dx); Generalized anxiety disorder; Psychosocial stressors; Severe episode of recurrent major depressive disorder, without psychotic features (HCC); Borderline personality disorder (HCC); Encounter for long-term (current) use of medications Start: 04-23-2024 End: 04-23-2024 ambulatory KANG BUENROSTRO Facility:[facility] Start: 04-14-2024 End: 04-14-2024 Telemedicine consultation with patient Jake Arias PA-C Work Phone: Neurology Start: 04-14-2024 End: 04-14-2024 ambulatory Jake Arias PA-C Work Phone: Neurology Comment on above: Focal epilepsy with impairment of consciousness, intractable (HCC) (Primary Dx); S/P craniotomy Start: 04-09-2024 End: 04-09-2024 Refill Dionte Fu MD Work Phone: [facility] Comment on above: Refill Request Loryna Refill Start: 04-01-2024 End: 04-02-2024 Refill Kang Buenrostro APRN.CNP Work Phone: Psychiatry Comment on above: Refill Request Start: 03-04-2024 End: 03-04-2024 [facility] Tami Shelli ROQUE Work Phone: Neurology Comment on above: Bipolar 2 disorder ( HCC) (Primary Dx); Generalized anxiety disorder; Cannabis dependence (HCC); Alcohol abuse Start: 02-19-2024 End: 02-19-2024 [facility] SERNA.ROSA Work Phone: Psychiatry Comment on above: Bipolar 2 disorder ( HCC) (Primary Dx); Mixed obsessional thoughts and acts; Generalized anxiety disorder; Psychosocial stressors; Medication side effect, initial encounter Start: 02-19-2024 End: 02-19-2024 ambulatory [facility] Facility:[facility] Start: 02-17-2024 End: 02-17-2024 Telephone encounter Carol Hamilton APRN.CNP Work Phone: OB/Gynecology Comment on above: Results; STD Start: 02-16-2024 End: 02-16-2024 [facility] Facility:[facility] Start: 02-16-2024 End: 02-16-2024 Patient encounter procedure Eligio Diez APRN.CNP Work Phone: OB/Gynecology Comment on above: Encounter for gyneco logical examination (general) (routine) without abnormal findings (Primary Dx); Screening for cervical cancer; Encounter for screening for human papillomavirus (HPV); Screening for STD (sexually transmitted disease); LGSIL on Pap smear of cervix Gastroesophageal ref lux disease, unspecified whether esophagitis present (Primary Dx); Aphthous, ulcer oral; Impetigo; Nausea and vomiting, unspecified vomiting type; Generalized abdominal pain Start: 02-16-2024 End: 02-16-2024 Patient encounter status Eligio Diez APRN.CNP Work Phone: [facility] Start: 02-03-2024 End: 02-03-2024 ambulatory [facility] Facility:[facility] Start: 02-03-2024 End: 02-03-2024 Patient encounter procedure Tami Pastor PSYD Work Phone: Neurology Comment on above: APPOINTMENT CANCELLE D (Primary Dx) Start: 02-03-2024 End: 02-03-2024 Telemedicine consultation with patient Tami Pastor PSYD Work Phone: Neurology Start: 01-22-2024 End: 01-22-2024 Refill Jake Arias PA-C Work Phone: Neurology Comment on above: Refill Request Start: 01-20-2024 End: 01-20-2024 Distance 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) Start: 01-01-2024 End: 01-01-2024 [facility] Kang Buenrostro APRN.VENEER MATCHER Work Phone: Psychiatry Comment on above: Mixed obsessional th oughts and acts (Primary Dx); Bipolar 2 disorder (HCC); Generalized anxiety disorder; Psychosocial stressors Start: 12-26-2023 End: 12-26-2023 ambulatory Alvaro Magana MD Work Phone: Neurosurgery Start: 12-26-2023 End: 12-26-2023 Follow-up encounter Alvaro Magana MD Work Phone: Neurosurgery Comment on above: Blood Work Follow Up Start: 12-25-2023 End: 12-25-2023 Emergency department patient visit DIONTE Daryl WHIT Facility:[facility] Start: 12-23-2023 End: 12-24-2023 Get Medical Advice Kang Buenrostro APRN.VENEER MATCHER Work Phone: Psychiatry Comment on above: Medication Refills Start: 12-09-2023 Refill Helga Maher MD Work Phone: OB/Gynecology Comment on above: Refill Request Start: 11-28-2023 Admission to [facility] Alvaro Magana MD Work Phone: Neurosurgery Comment on above: MRI Start: 11-28-2023 ambulatory Alvaro art MD Work Phone: Neurosurgery Start: 11-21-2023 End: 12-31-2023 Telephone encounter Eligio Diez APRN.VENEER MATCHER Work Phone: OB/Gynecology Comment on above: Results Start: 11-20-2023 End: 11-20-2023 Patient encounter procedure Eligio Diez APRN.VENEER MATCHER Work Phone: OB/Gynecology Comment on above: Acute vaginitis (Esperanza wilmer Dx) Start: 10-23-2023 ambulatory Dionte Fu MD Work Phone: [facility] Comment on above: Therapist Start: 09-19-2023 End: 09-19-2023 Patient encounter procedure Dionte Fu MD Work Phone: [facility] Comment on above: Lower abdominal pain (Primary Dx); Nausea; Weight gain; Malaise and fatigue; Celiac disease Start: 09-17-2023 End: 09-17-2023 Patient encounter procedure Alvaro Magana MD Work Phone: Neurosurgery Comment on above: 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) Start: 09-17-2023 End: 09-17-2023 Subsequent hospital visit by physician Criss Gregory (I-Stat/3t) Work Phone: Radiology Comment on above: Other specified post procedural states [Z98.890] Start: 07-18-2023 Refill Kang fontanez APRN.VENEER MATCHER Work Phone: Psychiatry Comment on above: Refill Request Start: 06-19-2023 End: 06-19-2023 ambulatory Kang Buenrostro APRN.VENEER MATCHER Work Phone: Psychiatry Comment on above: NO SHOW (Primary Dx) Behavioral [facility] No Show Policy Start: 06-19-2023 E-mail encounter fro m caregiver Kang Lilliam Buenrostro APRN.[facility] Work Phone: [facility] Start: 06-19-2023 End: 06-19-2023 Telemedicine consultation with patient Kang Allenguru SERNA.[facility] Work Phone: [facility] Start: 06-04-2023 Telephone encounter Alvaro Magana MD Work Phone: Neurosurgery Comment on above: Appointment (Follow up MRI ) Start: 03-10-2023 Refill Kang Vyas Will fontanez [employer]ER LIBRARIAN.[facility] Work Phone: [facility] Comment on above: Refill Request Start: 02-11-2023 Refill Fredi Moya MD Work Phone: [facility] Comment on above: Refill Request Start: 02-10-2023 Telephone encounter Alvaro Magana MD Work Phone: Neurosurgery Start: 02-05-2023 End: 02-05-2023 [facility] Kang Vyas Reggie SERNA.[facility] Work Phone: Psychiatry Comment on above: Mixed obsessional th oughts and acts (Primary Dx); Bipolar 2 disorder (HCC) Start: 01-05-2023 Refill Iftikhar cooper [employer]ER LIBRARIAN.[facility] Work Phone: Neurology Comment on above: Refill Request Start: 01-03-2023 Telephone encounter Helga Maher MD Work Phone: OB/Gynecology Comment on above: Results Start: 12-25-2022 End: 12-25-2022 Patient encounter procedure Helga Maher MD Work Phone: OB/Gynecology Comment on above: Encounter for gyneco logical examination (general) (routine) without abnormal findings (Primary Dx); Screening for cervical cancer; Screen for STD (sexually transmitted disease) Start: 12-25-2022 End: 12-25-2022 Patient encounter status Helga Maher MD Work Phone: [facility] Start: 12-05-2022 End: 12-05-2022 Patient encounter procedure Saul Knox PA-C Work Phone: Neurosurgery Comment on above: 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); S/P craniotomy; Generalized anxiety disorder; Depression, unspecified depression type Start: 12-03-2022 Refill Lottie Moser APRN.CNM Work Phone: OB/Gynecology Comment on above: Refill Request Start: 11-29-2022 End: 11-29-2022 Patient encounter procedure Dionte Fu MD Work Phone: [facility] Comment on above: Generalized anxiety disorder (Primary Dx) Start: 11-27-2022 End: 11-27-2022 Emergency department patient visit [facility] Facility:[facility] Start: 11-27-2022 End: 11-27-2022 Emergency department patient visit [facility] Work Phone: Start: 11-26-2022 Telephone encounter Alvaro Magana MD Work Phone: Neurosurgery Comment on above: Patient Request (Pic tures from surgery ) Start: 11-19-2022 Telephone encounter Alvaro Magana MD Work Phone: Neurosurgery Comment on above: Results (Pathology r esults ) Start: 10-31-2022 ambulatory Alvaro art MD Work Phone: [facility] Start: 10-31-2022 Follow-up encounter Alvaro Magana MD Work Phone: Neurosurgery Comment on above: Surgery Follow Up Start: 10-30-2022 Patient Outreach Kalie David RN Occupational Physician Management Comment on above: Transition Of Care ( M080 EMU/Neuro Stepdown/ 10/28/22/ 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)) Start: 10-24-2022 Telephone encounter Alvaro Magana MD Work Phone: Neurosurgery Comment on above: Results (Positive na medina swab ) Start: 10-23-2022 End: 10-23-2022 Nursing evaluation of patient and report Belen Valdez RN Work Phone: Neurosurgery Comment on above: Focal epilepsy with impairment of consciousness, intractable (HCC) (Primary Dx) Start: 10-23-2022 End: 10-23-2022 PAT Pacc Main 2 Work Phone: Pre Anesthesia Comment on above: Pre-op evaluation (P rimary Dx); Bipolar 2 disorder (HCC); Generalized anxiety disorder; Chiari malformation type I (HCC); Depression, unspecified depression type; Celiac disease; Obesity (BMI 30-39.9); Seizure-like activity (HCC); 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, intractable (HCC) (Primary Dx) Start: 10-23-2022 End: 10-23-2022 Preprocedural examination done Pacc Main 2 Work Phone: Pre Anesthesia Start: 10-09-2022 End: 10-09-2022 Patient encounter procedure Dionte Fu MD Work Phone: [facility] Comment on above: Preoperative examina tion (Primary Dx) Start: 10-09-2022 End: 10-09-2022 Preprocedural examination done Dionte Fu MD Work Phone: [facility] Start: 09-27-2022 ambulatory Helga Maher MD Work Phone: OB/Gynecology Comment on above: Control Renewa l Start: 08-15-2022 Admission to [facility] Alvaro Magana MD Work Phone: Neurosurgery Comment on above: Schedule Surgery (RI GHT temporal lobectomy) Start: 08-15-2022 ambulatory Alvaro art MD Work Phone: [facility] Start: 07-25-2022 Refill Uriel Shetty PA-C Work Phone: Neurology Comment on above: Refill Request Start: 07-25-2022 Refill Anselmo aviles MD Work Phone: [facility] Comment on above: Refill Request Treatment Planning Start: 07-24-2022 Admission to [facility] Vicky Zavala MD Work Phone: Neurology Comment on above: Surgery Date Start: 07-24-2022 ambulatory Vicky Zavala MD Work Phone: [facility] Start: 07-22-2022 End: 07-22-2022 ambulatory Vicky Zavala MD Work Phone: Neurology Comment on above: Focal epilepsy with impairment of consciousness, intractable (HCC) (Primary Dx) Start: 07-22-2022 End: 07-22-2022 Telemedicine consultation with patient Vicky Zavala MD Work Phone: [facility] Start: 07-17-2022 ambulatory Helga Maher MD Work Phone: OB/Gynecology Comment on above: Davonte Reese Control Prescription Start: 07-12-2022 End: 07-12-2022 Patient encounter procedure Kang Buenrostro APRN.VENEER MATCHER Work Phone: Psychiatry Comment on above: APPOINTMENT CANCELLE D (Primary Dx) Start: 07-12-2022 End: 07-12-2022 Telemedicine consultation with patient Kang Allen 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 Work Phone: [facility] Start: 07-04-2022 ambulatory Kalie KINSEY Start: 07-04-2022 Telephone encounter Vicky Zavala MD Work Phone: Neurology Comment on above: Medication Authoriza tion (Nayzilam) Transition Of Care ( Main M080B/ 07/03/22/ Seizure-like activity) Start: 07-02-2022 Chart abstracting Alisa ryan Research Coordinator Neurology Comment on above: Informed Consent (IR B 12-1000) Start: 06-25-2022 End: 06-25-2022 Patient encounter procedure Jaylen Ruano MD Work Phone: [facility] Comment on above: Acetabular labrum te ar, right, initial encounter (Primary Dx) Start: 06-18-2022 Refill Dionte Fu MD Work Phone: [facility] Comment on above: Refill Request Start: 06-14-2022 End: 06-14-2022 Distance [facility] Kang Vyas Reggie SERNA.VENEER MATCHER Work Phone: Psychiatry Comment on above: Bipolar 2 disorder ( HCC) (Primary Dx); Mixed obsessional thoughts and acts Start: 06-08-2022 ambulatory [facility] Facility :[facility] Start: 06-08-2022 End: 06-08-2022 Subsequent hospital visit by physician Mri [facility] (Istat/3t) Work Phone: [facility] Radiology MRI Comment on above: Pain in right hip [M 25.551] Start: 06-03-2022 ambulatory Lv germain DO Work Phone: Neurology Comment on above: Note for School Short Term Disabilit y Disability paperwork Start: 05-16-2022 End: 05-16-2022 ambulatory Kang Vyas Reggie 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 Work Phone: Psychiatry Comment on above: NO SHOW (Primary Dx) Start: 05-16-2022 End: 05-16-2022 Telemedicine consultation with patient Kang Manningfouzia 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 Work Phone: [facility] Start: 04-22-2022 Refill Helga Maher MD Work Phone: OB/Gynecology Comment on above: Refill Request Start: 04-18-2022 End: 04-18-2022 Distance 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 Start: 04-03-2022 ambulatory Lv germain DO Work Phone: Neurology Comment on above: Medication Side Effe cts Start: 03-25-2022 End: 03-25-2022 [facility] Kang Buenrostro APRN.VENEER MATCHER Work Phone: Psychiatry Comment on above: Bipolar 2 disorder ( HCC) (Primary Dx); Mixed obsessional thoughts and acts Start: 03-19-2022 Chart abstracting Elyssa warren PA-C Work Phone: [facility] [place] Start: 03-18-2022 End: 03-18-2022 Orders Only Lv Hernandez DO Work Phone: Neurology Comment on above: Dysembryoplastic jaxon roepithelial tumor (DNET) of brain (HCC) (Primary Dx) Results TRIAGE Generalized anxiety disorder [F41.1] Start: 03-07-2022 ambulatory Jaida Chang MD Work Phone: [facility] Comment on above: Hip Start: 03-03-2022 ambulatory Helga Maher MD Work Phone: OB/Gynecology Comment on above: Prescription Start: 03-01-2022 End: 03-01-[address] Work Phone: [facility] Comment on above: Dietary counseling ( Primary Dx); BMI 32.0-32.9,adult Start: 03-01-2022 End: 03-01-2022 Telemedicine consultation with patient Rachel Justin RD Work Phone: [facility] [address] Start: 02-28-2022 End: 02-28-2022 Subsequent hospital visit by physician Xr [facility] Work Phone: Radiology Comment on above: Pain [R52] Start: 02-27-2022 Orders Only Jaida Chang MD Work Phone: [facility] [place] Comment on above: Pain (Primary Dx) Start: 02-22-2022 Telephone encounter Vicky Zavala MD Work Phone: Neurology Comment on above: Future Appointment Start: 02-21-2022 End: 02-21-2022 Patient encounter procedure Lv Hernandez DO Work Phone: Neurology Comment on above: Generalized anxiety disorder (Primary Dx); Spells of decreased attentiveness; Near syncope Start: 02-15-2022 Telephone encounter Azra montalvo APRN.VENEER MATCHER Work Phone: [facility] Comment on above: Appointment Start: 01-30-2022 Orders Only Iftikhar renner MD Work Phone: [facility] [place] Comment on above: Mental status change resolved (Primary Dx) Start: 12-25-2021 ambulatory Dionte Fu MD Work Phone: [facility] Comment on above: Anxiety Start: 12-21-2021 End: 12-21-2021 ambulatory Dionte Fu MD Work Phone: [facility] Comment on above: OPENED IN ERROR Start: 12-21-2021 End: 12-21-2021 Telemedicine consultation with patient Dionte Fu MD Work Phone: [facility] Start: 12-17-2021 Refill Dionte Fu MD Work Phone: [facility] Comment on above: Refill Request Start: 11-27-2021 ambulatory Jaida Chang MD Work Phone: [facility] Comment on above: Irritation on wound Start: 09-19-2021 End: 09-19-2021 [facility] Pacc [place] [facility] 2 Work Phone: Pre Anesthesia Comment on above: Pre-op evaluation (P rimary Dx); Rupture of anterior cruciate ligament of right knee, subsequent encounter; Generalized anxiety disorder Start: 09-19-2021 End: 09-19-2021 Preprocedural examination done Pac 2 Work Phone: Pre Anesthesia Start: 09-11-2021 ambulatory Jaida Chang MD Work Phone: [facility] Start: 09-04-2021 Telephone encounter Kathrine Iyer PA-C Work Phone: [facility] Comment on above: Schedule Surgery Start: 08-28-2021 ambulatory Jaida Chang MD Work Phone: [facility] Comment on above: S/P right knee arthr oscopically-assisted anterior cruciate ligament reconstruction with bone-patellar tendon-bone autograft, medial meniscus repair, partial lateral meniscectomy (Primary Dx) Start: 08-28-2021 Telemedicine consult ation with patient Jaida Chang MD Work Phone: [facility] [address] Start: 08-26-2021 End: 08-26-2021 Subsequent hospital visit by physician Mr Love Daniel (Istat/3t) Work Phone: [facility] Radiology MRI Comment on above: S/P right knee surge ry [Z98.890] Start: 08-16-2021 ambulatory Jaida Chang MD Work Phone: [facility] Comment on above: S/P right knee arthr oscopically-assisted anterior cruciate ligament reconstruction with bone-patellar tendon-bone autograft, medial meniscus repair, partial lateral meniscectomy (Primary Dx) Start: 08-16-2021 Telemedicine consult ation with patient Jaida Chang MD Work Phone: [facility] [address] Start: 08-08-2021 Refill Dionte Fu MD Work Phone: [facility] Comment on above: Refill Request Start: 10-13-2020 End: 10-13-2020 Subsequent hospital visit by physician Alicja [facility] Work Phone: Radiology Comment on above: Rupture of anterior cruciate ligament of right knee, initial encounter [S83.511A] Procedures Date Procedure Procedure Detail Performing Clinician Start: 09-28-2024 Mri brain brain stem w/o w/contrast material Saul Knox PA-C Work Phone: Start: 09-27-2024 MENINGOCOCCAL B VACCINE (BEXSERO) Braulio Troncoso MD Work Phone: Start: 06-04-2024 Follow-up visit Follow Up KANG BUENROSTRO Start: 02-16-2024 UA DIP,URINE HCG (POC) Dionte Fu MD Work Phone: Start: 02-16-2024 Urnls dip stick/tablet rgnt auto w/o microscopy Dionte Fu MD Work Phone: Start: 09-17-2023 Mri brain brain stem w/o w/contrast material Saul Knox PA-C Work Phone: Start: 10-23-2022 Antibody screen Pacc 2 Work Phone: Start: 06-08-2022 Mri any jt lower extrem w/o contrast maggi Chang MD Work Phone: Start: 03-18-2022 Mri brain brain stem w/o w/contrast material Lv David Work Phone: Start: 02-28-2022 Radex hip unilateral with pelvis 2-3 views Jaida Chang MD Work Phone: Start: 08-26-2021 Mri any jt lower extrem w/o contrast maggi Chang MD Work Phone: Start: 04-09-2021 Adult depression screening assessment Dionte Fu MD Work Phone: Start: 10-13-2020 End: 09-27-2024 History of operative procedure on knee S/P right knee arthroscopically-assisted anterior cruciate ligament reconstruction with bone-patellar tendon-bone autograft, medial meniscus repair, partial lateral meniscectomy Dionte Fu MD Work Phone: Start: 10-13-2020 Radiologic examination knee 1/2 views Rodney Garcia PA-C Work Phone: Start: 09-05-2016 End: 09-05-2016 Documentation of current medications Lottie Fry H/O: surgery S/P brain surgery Alvaro Magana MD Work Phone: History of operative procedure on knee S/P right knee arthroscopically-assisted anterior cruciate ligament reconstruction with bone-patellar tendon-bone autograft, medial meniscus repair, partial lateral meniscectomy Jaida Chang MD Work Phone: History of operative procedure on knee S/P right knee arthroscopically-assisted anterior cruciate ligament reconstruction with bone-patellar tendon-bone autograft, medial meniscus repair, partial lateral meniscectomy Mr (Istat/3t) Work Phone: History of operative procedure on knee S/P right knee arthroscopically-assisted anterior cruciate ligament reconstruction with bone-patellar tendon-bone autograft, medial meniscus repair, partial lateral meniscectomy Jaida Chang MD Work Phone: History of operative procedure on knee S/P right knee surgery Jaida Chang MD Work Phone: Plan of Treatment Date Care Activity Detail Author Start: 12-25-2025 PAP TESTING PAP TESTING [facility] Start: 12-25-2025 Screening for malign ant neoplasm of cervix Pap Testing [facility] Start: 06-08-2025 End: 06-08-2025 Follow-up encounter 06/08/2025 10:00 AM [facility] Neurology [address] [place] [address] Vicky Zavala MD [address] [place] [address] MARIA EUGENIA WALKER; FOLLOW UP Neurology Comment on above: MARIA EUGENIA WALKER; FOL LOW UP Start: 04-29-2025 GC (Gonorrhea) Screening (18-24) GC (Gonorrhea) Screening (18-24) [facility] Start: 04-29-2025 Screening for Chlamy mark trachomatis Chlamydia Screening (18-) [facility] Start: 03-29-2025 Meningococcal B Vacc ine (2 of 2 - Bexsero SCDM 2-dose series) Meningococcal B Vaccine (2 of 2 - Bexsero SCDM 2-dose series) [facility] Start: 03-29-2025 MENINGOCOCCAL B VACC INE (BEXSERO) MENINGOCOCCAL B VACCINE (BEXSERO) Immunization/Injection Routine Need for vaccination Expected: 03/29/2025 [facility] Work Phone: Comment on above: Expected: 03/29/2025 Start: 03-28-2025 End: 03-28-2025 Patient encounter procedure 03/28/2025 6:00 PM EST Office Visit [facility] [address] [facility] [place], [place] [id number] Braulio Troncoso MD [address] [place] [address] 6 month follow-up [facility] Comment on above: 6 month follow-up Start: 02-18-2025 End: 02-18-2025 Patient encounter procedure 02/18/2025 10:45 AM EDT Office Visit OB/Gynecology [address] [place], [place] [id number] Rachel Aguirre APRN.CN [address] [place] [address] Annual OB/Gynecology Comment on above: Annual Start: 02-17-2025 End: 02-17-2025 Patient encounter procedure OB/Gynecology Comment on above: Annual Start: 02-15-2025 GC (Gonorrhea) Screening (18-24) GC (Gonorrhea) Screening (18-24) [facility] Start: 02-15-2025 Screening for Chlamy mark trachomatis Chlamydia Screening () [facility] Start: 02-15-2025 Screening for malign ant neoplasm of cervix Cervical Cancer Screening [facility] Start: 01-07-2025 End: 01-07-2025 ambulatory 01/07/2025 8:00 AM EDT [facility] Psychiatry [address] [facility] [place] [id number] Kang Buenrostro, 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 [address] [place] [address] Psychiatry Start: 12-27-2024 Influenza vaccination [facility] Start: 11-19-2024 GC (Gonorrhea) Screening (18-24) GC (Gonorrhea) Screening (18-24) [facility] Start: 11-19-2024 Screening for Chlamy mark trachomatis Chlamydia Screening (18) [facility] Start: 11-08-2024 End: 11-08-2024 Patient encounter procedure Psychiatry Comment on above: provider ordered fol low up Start: 10-12-2024 End: 10-12-2024 Patient encounter procedure 10/12/2024 1:30 PM EDT Office Visit Neurosurgery [address] [place] [address] Alvaro Magana MD [address] [place] [address] follow up Neurosurgery Comment on above: follow up Start: 10-12-2024 End: 10-12-2024 Patient encounter procedure 10/12/2024 12:20 PM EDT Appointment MRI Q [address] [address] MRI BRAIN WO/W IVCON MRI Q Comment on above: MRI BRAIN WO/W IVCON Start: 09-28-2024 End: 09-28-2024 Patient encounter procedure 09/28/2024 1:30 PM EDT Office Visit Neurosurgery [address] [place] [address] Alvaro Magana MD [address] [place] [address] follow up Neurosurgery Comment on above: follow up Start: 09-28-2024 End: 09-28-2024 Patient encounter procedure Radiology Comment on above: MRI BRAIN WO/W IVCON 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] - monitoring Start: 09-27-2024 End: 09-27-2024 Patient encounter procedure 09/27/2024 9:40 AM EDT Office Visit [facility] [address] [place], [place] [address] Braulio Troncoso MD [address] [place], [place] [address] est care [facility] Comment on above: est care Start: 09-16-2024 End: 10-16-2024 MR Brain WO and W contrast IV MRI BRAIN WO/W IVCON Radiology Routine Low grade glioma of brain (HCC) Expected: 09/16/2024, Expires: 10/16/2024 [facility] Work Phone: Comment on above: Expected: 09/16/2024 , Expires: 10/16/2024 Start: 09-01-2024 End: 09-01-2024 Distance Health 09/01/2024 9:30 AM EDT [facility] Psychiatry [address] [place] [address] Kang Buenrostro, 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 [address] [place] [phone] PROVIDER ORDERED FOLLOW UP Psychiatry Comment on above: PROVIDER ORDERED FOL LOW UP Start: 08-04-2024 End: 08-04-2024 Follow-up encounter 08/04/2024 8:30 AM EDT [facility] Psychiatry [address] [place] [address] Kang Buenrostro, 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 [address] [place] [phone] 4 WEEK FOLLOW UP Psychiatry Comment on above: 4 WEEK FOLLOW UP Start: 07-07-2024 End: 07-07-2024 Follow-up encounter 07/07/2024 8:30 AM EDT [facility] Psychiatry [address] [place] [address] Kang Buenrostro, 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 [address] [place] [address] 4 week follow up Psychiatry Comment on above: 4 week follow up Start: 06-04-2024 End: 06-04-2024 Follow-up encounter 06/04/2024 9:00 AM EST [facility] Psychiatry [address] [place] [phone] Kang Buenrostro 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 [address] [facility] [place] [address] 4-6 week follow up Psychiatry Comment on above: 4-6 week follow up Start: 05-24-2024 End: 05-24-2024 Patient encounter procedure 05/24/2024 1:00 PM EST Appointment [facility] [address] [place], [place] [phone] [facility] [address] [place] [place], [place] [id number] DBT IOP Intake [facility] Comment on above: DBT IOP Intake Start: 04-29-2024 End: 04-29-2024 ambulatory 04/29/2024 4:00 PM EST [facility] Neurology [address] [facility] [address] [place] [address] Tami Pastor, PSYD [address] [place] [address] Neurology Start: 04-29-2024 End: 04-29-2024 Follow-up encounter 04/29/2024 4:00 PM EST [facility] Neurology [address] [facility] [address] [place] [address] Tami Pastor, PSYD [address] [place] [address] Follow up Neurology Comment on above: Follow up Start: 04-29-2024 End: 04-29-2024 Patient encounter procedure 04/29/2024 8:15 AM EST Office Visit OB/Gynecology [address] [place], [place] [phone] Eligio Diez, 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 [address] [place] [address] [facility] OB/Gynecology Comment on above: [facility] Start: 04-23-2024 End: 04-23-2024 Follow-up encounter 04/23/2024 10:00 AM EST [facility] Psychiatry [address] [place] [phone] Kang Buenrostro, 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 [address] [place] [address] follow up Psychiatry Comment on above: follow up Start: 04-14-2024 End: 04-14-2024 ambulatory 04/14/2024 9:00 AM EST [facility] Neurology [address] [place] [address] Jake Arias PA-C [address] [facility] [address] [place] [id number] 3 month Neurology Comment on above: 3 month Start: 03-22-2024 End: 03-22-2024 Patient encounter procedure 03/22/2024 8:30 AM EST Office Visit [facility] [address] [facility] [phone] Dionte Fu MD [address] [facility] [place] [address] follow up abdominal pain [facility] Comment on above: follow up abdominal pain Start: 03-15-2024 End: 03-15-2024 Follow-up encounter 03/15/2024 2:30 PM EST [facility] Psychiatry [address] [facility] [place] [address] Kang Buenrostro, 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 [address] [facility] [place] [address] follow up Psychiatry Comment on above: follow up Start: 03-08-2024 End: 03-08-2024 Patient encounter procedure 03/08/2024 11:15 AM EST Appointment Radiology [address] [address] Generalized abdominal pain [R10.84] Radiology Comment on above: Generalized abdomina l pain [R10.84] Start: 03-04-2024 End: 03-04-2024 Follow-up encounter 03/04/2024 1:00 PM EST [facility] Neurology [address] [facility] [address] [place] [address] Tami Pastor, MYA [address] [place] [place], [place] [phone] Follow up Neurology Comment on above: Follow up Start: 02-19-2024 End: 02-19-2024 Follow-up encounter 02/19/2024 8:00 AM EDT [facility] Psychiatry [address] [place] [address] Kang Buenrostro, 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 [address] [place] [address] FOLLOW UP 4-6 weeks Psychiatry Comment on above: FOLLOW UP 4-6 weeks Start: 02-16-2024 End: 05-17-2024 Hepatitis B virus surface Ag [Presence] in Serum [facility] Comment on above: Expected: 02/16/2024 , Expires: 05/17/2024 Start: 02-16-2024 End: 05-17-2024 Hepatitis C virus Ab [Presence] in Serum [facility] Comment on above: Expected: 02/16/2024 , Expires: 05/17/2024 Start: 02-16-2024 End: 05-17-2024 HIV 1+2 Ab [Presence] in Serum or Plasma by Immunoassay [facility] Comment on above: Expected: 02/16/2024 , Expires: 05/17/2024 Start: 02-16-2024 End: 05-17-2024 SYPHILIS TREPONEMAL W/REFLEX [facility] Work Phone: Comment on above: Expected: 02/16/2024 , Expires: 05/17/2024 Start: 02-16-2024 End: 02-16-2024 Patient encounter procedure OB/Gynecology Comment on above: annual Intestinal irritatio n Start: 01-23-2024 End: 01-23-2024 Patient encounter procedure 01/23/2024 10:00 AM EDT Office Visit [facility] [address] [place] [address] Dionte Fu MD [address] [place] [address] Intestinal irritation [facility] Comment on above: Intestinal irritatio n Start: 01-21-2024 End: 01-21-2024 [facility] 01/21/2024 11:00 AM EDT [facility] Neurology [address] [facility] [address] [place] [address] BreTami harvey, PSYD [address] [place] [phone] Generalized anxiety disorder [F41.1] Neurology Comment on above: Generalized anxiety disorder [F41.1] Start: 01-20-2024 End: 01-20-2024 [facility] 01/20/2024 11:00 AM EDT [facility] Neurology [address] [facility] [address] [place] [address] Tami Pastor, PSYD [address] [place] [phone] Generalized anxiety disorder [F41.1] Neurology Comment on above: Generalized anxiety disorder [F41.1] Start: 01-09-2024 End: 04-09-2024 CBC panel - Blood by Automated count COMPLETE BLOOD COUNT Lab Routine Focal epilepsy with impairment of consciousness, intractable (HCC) Expected: 01/09/2024, Expires: 04/09/2024 [facility] Work Phone: Comment on above: Expected: 01/09/2024 , Expires: 04/09/2024 Start: 01-09-2024 End: 04-09-2024 Comprehensive metabolic 2000 panel - Serum or Plasma COMPREHENSIVE METABOLIC PANEL Lab Routine Focal epilepsy with impairment of consciousness, intractable (HCC) Expected: 01/09/2024, Expires: 04/09/2024 [facility] Comment on above: Expected: 01/09/2024 , Expires: 04/09/2024 Start: 01-09-2024 End: 04-09-2024 lamoTRIgine [Mass/volume] in Serum or Plasma LAMOTRIGINE Lab Routine Focal epilepsy with impairment of consciousness, intractable (HCC) Expected: 01/09/2024, Expires: 04/09/2024 [facility] Comment on above: Expected: 01/09/2024 , Expires: 04/09/2024 Start: 01-09-2024 End: 04-09-2024 levETIRAcetam [Mass/volume] in Serum or Plasma LEVETIRACETAM Lab Routine Focal epilepsy with impairment of consciousness, intractable (HCC) Expected: 01/09/2024, Expires: 04/09/2024 [facility] Comment on above: Expected: 01/09/2024 , Expires: 04/09/2024 Start: 01-09-2024 End: 01-09-2024 Patient encounter procedure 01/09/2024 10:00 AM EDT Office Visit Neurology [address] [place] [address] Jake Arias PA-C [address] [facility] [address] [place] [id number] follow up Neurology Comment on above: follow up Start: 01-02-2024 End: 01-02-2024 Patient encounter procedure 01/02/2024 10:45 AM EDT Office [facility] [address] [place] [address] Dionte Fu MD [address] [place] [address] nausea in the am [facility] Comment on above: nausea in the am Start: 01-01-2024 End: 01-01-2024 Patient encounter procedure 01/01/2024 3:20 PM EDT Office Visit OB/Gynecology [address] [place] [address] Helga Lorenzana MD [address] [place] [address] Annual exam- time slot ok per simran on reschedule email OB/Gynecology Comment on above: Annual exam- time sl ot ok per simran on reschedule email Start: 01-01-2024 End: 01-01-2024 Follow-up encounter 01/01/2024 8:00 AM EDT [facility] Psychiatry [address] [place] [phone] Kang Buenrostro, 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 [address] [place] [address] follow up medication (been off medication since june) discussing restart Psychiatry Comment on above: follow up medication (been off medication since june) discussing restart Start: 12-28-2023 Covid-19 Vaccine ( season) Covid-19 Vaccine () [facility] Start: 12-28-2023 Covid-19 Vaccine () Covid-19 Vaccine () [facility] Start: 12-28-2023 Influenza vaccination [facility] Start: 12-26-2023 CHLAMYDIA SCREENING (1824) CHLAMYDIA SCREENING (18-24) [facility] Start: 12-26-2023 GC (GONORRHEA) SCREENING (18) GC (GONORRHEA) SCREENING (18-24) [facility] Start: 12-26-2023 Screening for Chlamy mark trachomatis Chlamydia Screening () [facility] Start: 12-26-2023 Screening for malign ant neoplasm of cervix Cervical Cancer Screening [facility] Start: 12-17-2023 Urine microalbumin profile [facility] Start: 10-23-2023 End: 10-23-2023 Follow-up encounter 10/23/2023 9:00 AM EDT [facility] Neurosurgery [address] [place] [address] Nevin Soto, 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 [address] [place] [address] 1 year follow up Neurosurgery Comment on above: 1 year follow up Start: 09-19-2023 End: 09-19-2023 Patient encounter procedure 09/19/2023 9:30 AM EDT Office Visit [facility] [address] [place] [address] Dionte Fu MD [address] [place], [place] [id number] Ongoing Stomach Issues (Nausea, Upset Stomach) [facility] Comment on above: Ongoing Stomach Issu es (Nausea, Upset Stomach) Start: 05-23-2023 End: 12-20-2023 Mri brain brain stem w/o w/contrast material MRI BRAIN WO/W IVCON Radiology Routine Other specified postprocedural states Expected: 05/23/2023, Expires: 12/20/2023 [facility] Work Phone: Comment on above: Expected: 05/23/2023 , Expires: 12/20/2023 Start: 12-27-2022 Covid-19 Vaccine () Covid-19 Vaccine () [facility] Start: 12-27-2022 Influenza vaccination [facility] Start: 11-27-2022 Suicide precautions [facility] Start: 10-23-2022 End: 12-23-2022 aPTT in Platelet poor plasma by Coagulation assay ACTIVATED PTT Lab Routine Partial epilepsy with impairment of consciousness, intractable (HCC) Expected: 10/23/2022, Expires: 12/23/2022 [facility] Work Phone: Comment on above: Expected: 10/23/2022 , Expires: 12/23/2022 Start: 10-23-2022 End: 12-23-2022 CBC panel - Blood by Automated count CBC Lab Routine Partial epilepsy with impairment of consciousness, intractable (HCC) Expected: 10/23/2022, Expires: 12/23/2022 [facility] Work Phone: Comment on above: Expected: 10/23/2022 , Expires: 12/23/2022 Start: 10-23-2022 End: 12-23-2022 Comprehensive metabolic 2000 panel - Serum or Plasma COMP METABOLIC PANEL Lab Routine Partial epilepsy with impairment of consciousness, intractable (HCC) Expected: 10/23/2022, Expires: 12/23/2022 [facility] Work Phone: Comment on above: Expected: 10/23/2022 , Expires: 12/23/2022 Start: 10-23-2022 End: 12-23-2022 PT panel - Platelet poor plasma by Coagulation assay PROTHROMBIN TIME/PT Lab Routine Partial epilepsy with impairment of consciousness, intractable (HCC) Expected: 10/23/2022, Expires: 12/23/2022 [facility] Work Phone: Comment on above: Expected: 10/23/2022 , Expires: 12/23/2022 Start: 2022 PAP TESTING PAP TESTING [facility] Start: 08-15-2022 End: 02-11-2023 STAPH AUREUS PCR STAPH AUREUS PCR Lab Routine Partial epilepsy with impairment of consciousness, intractable (HCC) Expected: 08/15/2022, Expires: 02/11/2023 [facility] Work Phone: Comment on above: Expected: 08/15/2022 , Expires: 02/11/2023 Start: 04-28-2022 DEPRESSION ASSESSMENT DEPRESSION ASS ESSMENT [facility] Start: 04-09-2022 Adult depression screening assessment DEPRESSION SCREENING [facility] Start: 03-19-2022 End: 03-19-2023 SARS-CoV-2 (COVID-19) RNA [Presence] in Respiratory specimen by WILLEM with probe detection PRE-PROCEDURE & PRE-OPERATIVE COVID Microbiology Routine Spells of decreased attentiveness Expected: 03/19/2022, Expires: 03/19/2023 [facility] Work Phone: Comment on above: Expected: 03/19/2022 , Expires: 03/19/2023 Start: 12-27-2021 Influenza vaccination INFLUENZA (#1) [facility] Start: 12-11-2021 CHLAMYDIA SCREENING (18-24) CHLAMYDIA SCREENING (18-24) [facility] Start: 12-11-2021 GC (GONORRHEA) SCREENING (18-24) GC (GONORRHEA) SCREENING (18-24) [facility] Start: 06-07-2021 COVID-19 VACCINE (4 - Booster for Moderna series) COVID-19 VACCINE (4 - Booster for Moderna series) [facility] Start: 06-07-2021 COVID-19 VACCINE (4 - Moderna series) COVID-19 VACCINE (4 - Moderna series) [facility] Start: 04-28-2021 DEPRESSION ASSESSMENT DEPRESSION ASS ESSMENT [facility] Start: 2020 Pneumococcal vaccination Pneumococcal Vaccine (1 of 2 - PCV) [facility] Start: 09-04-2019 Depression Screening Depression Scre ening [facility] Start: 09-04-2019 HEPATITIS C SCREENING HEPATITIS C [facility] Start: 09-04-2019 Hepatitis C screening Hepatitis C [facility] Start: 09-04-2019 HIV SCREENING HIV SCREENING [facility] Start: 09-04-2019 HIV screening HIV Screening [facility] Start: 2017 Meningococcal B Vacc ine (1 of 2 - Standard) Meningococcal B Vaccine (1 of 2 - Standard) [facility] Start: 2017 Meningococcal B Vaccine: Consider Based On Risk (1 of 2 - Patient Seeks Protection) Meningococcal B Vaccine: Consider Based On Risk (1 of 2 - Patient Seeks Protection) [facility] Start: 2017 MENINGOCOCCAL B: Consider based on risk (1 of 2 - Patient Seeks Protection) MENINGOCOCCAL B: Consider based on risk (1 of 2 - Patient Seeks Protection) [facility] Start: 03-27-2017 End: 03-27-2017 Appointment Appointment [facility] Work Phone: Start: 12-24-2016 End: 12-24-2016 Appointment Appointment [facility] Work Phone: Start: 11-07-2016 End: 11-07-2016 Appointment Appointment [facility] Work Phone: Start: 10-16-2016 End: 10-16-2016 Physical Therapy General Physical Therapy [facility], [address] [place] [address], [phone] [facility] Work Phone: Start: 10-16-2016 End: 10-16-2016 Physical Therapy General Physical [facility], [address] [place] [address], [phone] [facility] Work Phone: Start: 10-10-2016 End: 10-10-2016 Appointment Appointment [facility] Work Phone: Start: 09-27-2016 End: 09-27-2016 Appointment Appointment [facility] Work Phone: Start: 09-27-2016 End: 09-27-2016 Appointment Appointment [facility] Work Phone: Start: 09-24-2016 End: 09-24-2016 Appointment Appointment [facility] Work Phone: Start: 09-24-2016 End: 09-24-2016 Appointment Appointment [facility] Work Phone: Start: 09-11-2016 End: 09-11-2016 Physical Therapy General [facility] Therapy [facility], [address] [place] [address], [id number] [facility] Work Phone: Start: 09-11-2016 End: 09-11-2016 Physical Therapy General Physical Therapy [facility], [address] [place] [address], [id number] [facility] Work Phone: Start: 09-05-2016 End: 09-05-2016 Appointment Appointment [facility] Work Phone: Start: 08-20-2016 End: 08-21-2016 Mri any jt lower extrem w/o contrast matrl MRI Joint Lower Extremity [facility] Work Phone: Start: 08-20-2016 End: 08-20-2016 Radiologic exam knee complete 4/more views X-Ray, Knee [facility] Work Phone: Start: 08-20-2016 End: 08-21-2016 Mri jnt of lwr extre w/o dye MRI Joint Lower Extremity [facility] Work Phone: Start: 08-20-2016 End: 08-20-2016 X-ray exam, knee, 4 or more X-Ray, Knee [facility] Work Phone: Start: 09-04-2015 PEDS TO ADULT TRANSITION ANNUAL ASSESSMENT PEDS TO ADULT TRANSITION ANNUAL ASSESSMENT [facility] Start: 2013 PEDS TO ADULT TRANSITION INITIAL DISCUSSION PEDS TO ADULT TRANSITION INITIAL DISCUSSION [facility] Start: 09-04-2011 MENINGOCOCCAL B: Consider based on risk (1 of 2 - Risk Bexsero 2-dose series) MENINGOCOCCAL B: Consider based on risk (1 of 2 - Risk Bexsero 2-dose series) [facility] Start: 09-04-2007 Pneumococcal vaccination Pneumococcal Vaccine (1 of 2 - PCV) [facility] Bacteria identified in Urine by Culture URINE CULTURE Microbiology Routine Vaginal irritation Urinary frequency 04/29/2024 8:24 AM [facility] BACTERIAL VAGINOSIS NAAT BACTERIAL VAGINOSIS NAAT Lab Routine Acute vaginitis 11/20/2023 10:00 AM EDT [facility] BACTERIAL VAGINOSIS NAAT BACTERIAL VAGINOSIS NAAT Lab Routine Vaginal irritation 04/29/2024 8:24 AM [facility] GEORGIANA/TRICHOMONAS NAAT GEORGIANA/TRICHOMONAS NAAT Lab Routine Acute vaginitis 11/20/2023 10:00 AM T [facility] Work Phone: GEORGIANA/TRICHOMONAS NAAT GEORGIANA/TRICHOMONAS NAAT Lab Routine Vaginal irritation 04/29/2024 8:24 AM [facility] Chlamydia trachomatis+Neisseria gonorrhoeae DNA [Presence] in Unspecified specimen by WILLEM with probe detection GONORRHEA/CHLAMYDIA NAAT Lab Routine Screen for STD (sexually transmitted disease) 12/25/2022 3:25 PM EDT [facility] Work Phone: Chlamydia trachomatis+Neisseria gonorrhoeae DNA [Presence] in Unspecified specimen by WILLEM with probe detection GONORRHEA/CHLAMYDIA NAAT Lab Routine Acute vaginitis 11/20/2023 10:00 AM [facility] Chlamydia trachomatis+Neisseria gonorrhoeae DNA [Presence] in Unspecified specimen by WILLEM with probe detection GONORRHEA/CHLAMYDIA NAAT Lab Routine Screening for STD (sexually transmitted disease) 02/16/2024 10:36 AM EDT [facility] Chlamydia trachomatis+Neisseria gonorrhoeae DNA [Presence] in Unspecified specimen by WILLEM with probe detection GONORRHEA/CHLAMYDIA NAAT Lab Routine Screen for STD (sexually transmitted disease) Vaginal irritation 04/29/2024 8:24 AM EST [facility] Work Phone: End: 10-24-2023 ECG COMPLETE ECG COMPLETE ECG Routine Pre-op evaluation 1 Occurrences starting 10/23/2022 until 10/24/2023 [facility] Work Phone: Comment on above: 1 Occurrences starti ng 10/23/2022 until 10/24/2023 End: 03-19-2023 EPIL EEG LEAD PLACEMENT EPIL EEG LEAD PLACEMENT NEUROLOGY Routine Spells of decreased attentiveness 1 Occurrences starting 03/19/2022 until 03/19/2023 [facility] Work Phone: Comment on above: 1 Occurrences starti ng 03/19/2022 until 03/19/2023 End: 02-21-2023 EPIL EEG LONG EPIL EEG LONG NEUROLOGY Routine Generalized anxiety disorder Spells of decreased attentiveness Near syncope 1 Occurrences starting 02/21/2022 until 02/21/2023 [facility] Work Phone: Comment on above: 1 Occurrences starti ng 02/21/2022 until 02/21/2023 EPIL VEEG ADMIT TO EMU/PMU EPIL VEEG ADMIT TO EMU/PMU NEUROLOGY Routine Spells of decreased attentiveness Ordered: 03/19/2022 [facility] Work Phone: Comment on above: Ordered: 03/19/2022 End: 09-15-2022 Mri any jt lower extrem w/o contrast matrl MRI KNEE WO IVCON RT Radiology Routine S/P right knee arthroscopically-assiste d anterior cruciate ligament reconstruction with bone-patellar tendon-bone autograft, medial meniscus repair, partial lateral meniscectomy 1 Occurrences starting 08/16/2021 until 09/15/2022 [facility] Work Phone: Comment on above: 1 Occurrences starti ng 08/16/2021 until 09/15/2022 Mri any jt lower ext rem w/o contrast matrl MRI KNEE WO IVCON RT Radiology Routine S/P right knee arthroscopically-assiste d anterior cruciate ligament reconstruction with bone-patellar tendon-bone autograft, medial meniscus repair, partial lateral meniscectomy 08/26/2021 2:07 PM EDT [facility] Work Phone: End: 03-23-2023 Mri brain brain stem w/o w/contrast material MRI BRAIN WO/W IVCON Radiology Routine Generalized anxiety disorder Spells of decreased attentiveness Near syncope 1 Occurrences starting 02/21/2022 until 03/23/2023 [facility] Work Phone: Comment on above: 1 Occurrences starti ng 02/21/2022 until 03/23/2023 NEURO CARDIO AUTONOM IC REFLEX W/WO TILT NEURO CARDIO AUTONOMIC REFLEX W/WO TILT Procedures Routine Generalized anxiety disorder Spells of decreased attentiveness Near syncope Ordered: 02/21/2022 [facility] Work Phone: Comment on above: Ordered: 02/21/2022 PAP TEST PAP TEST Lab Rou maricruz Screening for cervical cancer 12/25/2022 3:25 PM EDT [facility] Work Phone: PAP TEST PAP TEST Lab Rou maricruz Encounter for gynecological examination (general) (routine) without abnormal findings Screening for cervical cancer Encounter for screening for human papillomavirus (HPV) 02/16/2024 10:36 AM EDT [facility] Patient Education CONTRACT, No H arm ED Depression [facility] Work Phone: Patient referral [facility] Work Phone: REFER FOR ADMIT INTERVIEW REFER FOR ADMIT INTERVIEW Procedures Routine Partial epilepsy with impairment of consciousness, intractable (HCC) Ordered: 08/15/2022 [facility] Work Phone: Comment on above: Ordered: 08/15/2022 TRICHOMONAS VAGINALI S NAAT TRICHOMONAS VAGINALIS NAAT Lab Routine Screening for STD (sexually transmitted disease) 02/16/2024 10:36 AM EDT [facility] UA DIP,URINE HCG (POC) UA DIP,UR INE HCG (POC) Lab Routine Nausea and vomiting, unspecified vomiting type Ordered: 02/16/2024 [facility] Work Phone: Comment on above: Ordered: 02/16/2024 End: 03-17-2025 US Abdomen RUQ US ABD RIGHT UPPER QUADRANT Radiology Routine Generalized abdominal pain 1 Occurrences starting 02/16/2024 until 03/17/2025 [facility] Comment on above: 1 Occurrences starti ng 02/16/2024 until 03/17/2025 End: 03-29-2023 XR HIP GENERAL 3V PELV/AP/LAT RIGHT XR HIP GENERAL 3V PELV/AP/LAT RIGHT Radiology Routine Pain 1 Occurrences starting 02/28/2022 until 03/29/2023 [facility] Work Phone: Comment on above: 1 Occurrences starti ng 02/28/2022 until 03/29/2023 [facility] [place] Immunizations Immunization Date Immunization Notes Care Provider [facility] 09-27-2024 meningococcal B vacc ine, recombinant, OMV, adjuvanted Braulio Troncoso MD Work Phone: [facility] 09-27-2024 pneumococcal conjuga te (PCV20) vaccine, 20 valent (PREVNAR 20) Braulio Troncoso MD Work Phone: [facility] 09-27-2024 pneumococcal Conjuga te, unspecified formulation Braulio Troncoso MD Work Phone: [facility] 04-09-2021 influenza, injectabl e, quadrivalent, contains preservative Dionte Fu MD Work Phone: [facility] 04-09-2021 influenza virus vacc ine, unspecified formulation Kang Allenguru LEONGNModestoVENEER MATCHER Work Phone: [facility] 01-31-2020 influenza, injectabl e, quadrivalent, contains preservative Dionte Fu MD Work Phone: [facility] 12-26-2017 Human Papillomavirus 9-valent vaccine Dionte Fu MD Work Phone: [facility] 12-26-2017 meningococcal polysaccharide (groups A, C, Y and W-135) diphtheria toxoid conjugate vaccine (MCV4P) Dionte Fu MD Work Phone: [facility] 02-17-2014 human papilloma viru s vaccine, quadrivalent Dionte Fu MD Work Phone: [facility] Work Phone: 12-16-2013 human papilloma viru s vaccine, quadrivalent Dionte Fu MD Work Phone: [facility] 12-16-2013 meningococcal polysaccharide (groups A, C, Y and W-135) diphtheria toxoid conjugate vaccine (MCV4P) Dionte Fu MD Work Phone: [facility] 12-16-2013 tetanus toxoid, redu og diphtheria toxoid, and acellular pertussis vaccine, adsorbed Dionte Fu MD Work Phone: [facility] 12-22-2006 diphtheria, tetanus toxoids and acellular pertussis vaccine Dionte Fu MD Work Phone: [facility] Work Phone: 12-22-2006 measles, mumps and rubella virus vaccine Dionte Fu MD Work Phone: [facility] Work Phone: 12-22-2006 poliovirus vaccine, inactivated Dionte Fu MD Work Phone: [facility] Work Phone: 12-22-2006 varicella virus vaccine Dionte Fu MD Work Phone: [facility] Work Phone: 03-01-2006 influenza virus vacc ine, unspecified formulation Dionte Fu MD Work Phone: [facility] Work Phone: 01-07-2006 varicella virus vaccine Dionte Fu MD Work Phone: [facility] 02-25-2005 influenza virus vacc ine, unspecified formulation Dionte Fu MD Work Phone: [facility] Work Phone: 03-03-2004 influenza virus vacc ine, unspecified formulation Dionte Fu MD Work Phone: [facility] Work Phone: 04-15-2003 influenza virus vacc ine, unspecified formulation Dionte Fu MD Work Phone: [facility] Work Phone: 03-17-2003 influenza virus vacc ine, unspecified formulation Dionte Fu MD Work Phone: [facility] Work Phone: 03-17-2003 poliovirus vaccine, inactivated Dionte Fu MD Work Phone: [facility] Work Phone: 12-13-2002 diphtheria, tetanus toxoids and acellular pertussis vaccine Dionte Fu MD Work Phone: [facility] Work Phone: 12-13-2002 haemophilus influenz ae type b vaccine, HbOC conjugate Dionte Fu MD Work Phone: [facility] Work Phone: 12-13-2002 pneumococcal conjuga te vaccine, 7 valent Dionte Fu MD Work Phone: [facility] Work Phone: 09-14-2002 measles, mumps and rubella virus vaccine Dionte Fu MD Work Phone: [facility] Work Phone: 09-14-2002 pneumococcal conjuga te vaccine, 7 valent Dionte Fu MD Work Phone: [facility] Work Phone: 03-09-2002 diphtheria, tetanus toxoids and acellular pertussis vaccine Dionte Fu MD Work Phone: [facility] Work Phone: 03-09-2002 haemophilus influenz ae type b vaccine, HbOC conjugate Dionte Fu MD Work Phone: [facility] Work Phone: 03-09-2002 hepatitis B vaccine, pediatric or pediatric/adolescent dosage Dionte Fu MD Work Phone: [facility] Work Phone: 01-05-2002 diphtheria, tetanus toxoids and acellular pertussis vaccine Dionte Fu MD Work Phone: [facility] Work Phone: 01-05-2002 haemophilus influenz ae type b vaccine, HbOC conjugate Dionte Fu MD Work Phone: [facility] Work Phone: 01-05-2002 poliovirus vaccine, inactivated Dionte Fu MD Work Phone: [facility] Work Phone: 2001 diphtheria, tetanus toxoids and acellular pertussis vaccine Dionte Fu MD Work Phone: [facility] Work Phone: 2001 haemophilus influenz ae type b vaccine, HbOC conjugate Dionte Fu MD Work Phone: [facility] Work Phone: 2001 hepatitis B vaccine, pediatric or pediatric/adolescent dosage Dionte Fu MD Work Phone: [facility] Work Phone: 2001 poliovirus vaccine, inactivated Dionte Fu MD Work Phone: [facility] Work Phone: 2001 hepatitis B vaccine, pediatric or pediatric/adolescent dosage Dionte Fu MD Work Phone: [facility] Work Phone: Payers Date Payer Category Payer Private Health Insurance MMO [employer] PPO [id number] 2024 Unknown [id number] 2022 Self-pay [id number] 2018 Unknown [employer]EFERSON MCMULLEN SS PPO [id number] 2018-Present [phone] [address] [place] [address] PPO [id number] 2018 Unknown [id number] 2018 Unknown [id number] 2014 Unknown [facility] [id number] 2001 Unknown [id number] 2001 Unknown [id number] Unknown [id number] Social History Date Type Detail Facility Start: 04-29-2019 End: 02-21-2022 Tobacco smoking status NHIS Never smoked tobacco [facility] Work Phone: Start: 04-29-2019 End: 02-21-2022 Tobacco use and exposure Smokeless tobacco non-user [facility] Work Phone: Start: 09-22-2020 End: 05-25-2021 Alcohol intake Current non-drinker of alcohol (finding) [facility] Start: 2001 Sex Assigned At Female [facility] Start: 09-02-2020 End: 10-23-2022 Exposure to SARS-CoV-2 (event) Not sure [facility] Start: 09-19-2021 End: 09-27-2024 Alcohol intake Current drinker of alcohol (finding) [facility] Start: 09-19-2021 History SDOH Alcohol Comment every other weekend [facility] Start: 10-09-2022 End: 10-23-2022 History of Social function [facility] Start: 10-09-2022 End: 10-23-2022 Tobacco use panel [facility] Start: 03-29-2012 Adult Depression Screening Assessment 1 [facility] Start: 08-25-2020 Gender identity Identifies as female gender (finding) [facility] Start: 08-25-2020 Sexual orientation Heterosexual (gerhard finley) [facility] Start: 11-27-2022 Tobacco smoking stat us NHIS Unknown if ever smoked [facility] Start: 09-02-2020 Non-smoker [facility] Has the [employer], [employer], [employer], or [employer] threatened to shut off services in your home in past 12Mo No [facility] How often to you hav e a drink containing alcohol? 2-3 time sa week [facility] How many standard drinks containing alcohol do you have on a typical day? 5 or 6 [facility] How often do you hav e 6 or more drinks on 1 occasion? Monthly [facility] Do you feel stress - tense, restless, nervous, or anxious, or unable to sleep at night because your mind is troubled all the time - these days [OSQ] Very much [facility] (I/We) worried whejean er (my/our) food would run out before (I/we) got money to buy more. Never true [facility] NEGATED: Highlighted row [facility] Medical Equipment Procedure Code Equipment Code Equipment Origin al Text Equipment Identifier Dates Device Fast-Fix 360d Curve Fixation Meniscal Repair System - [id number] Start: 10-02-2020 Ultrabutton Adju stable Fixation Device [id number] Start: 10-02-2020 Screw Biosure 10 mm Adorno 25mm Interference Acl - [id number] Start: 10-02-2020 Patch Duramatrix -Onlay Plus Collagen 3x3in Dural Regeneration Membrane - [id number] Start: 10-25-2022 Plate Low Profil e Gold Titanium 12mm Bone 2 Hole Bar Extra Rigid 1.5mm - [id number] Start: 10-25-2022 Screw Bone Unive rsal Neuro 3 4mm 1.5mm Self Drill Axial Stability Latex - [id number] Start: 10-25-2022 Cover 14mm Low P rofile Titanium [place] Hole Tab 1.5mm Screw Nonsterile - [id number] Start: 10-25-2022 Functional Status Date Assessment Result Facility 10-28-2022 Are you deaf, or do you have serious difficulty hearing No 10/28/2022 11:27 AM Belen Mendez RN No [facility] 10-28-2022 Are you blind, or do you have serious difficulty seeing, even when wearing glasses No 10/28/2022 11:27 AM Belen Mendez RN No [facility] 10-28-2022 Do you have serious difficulty walking or climbing stairs No 10/28/2022 11:27 AM Belen Mendez RN No [facility] 10-28-2022 Do you have difficul ty dressing or bathing No 10/28/2022 11:27 AM Belen Mendez RN No [facility] 10-28-2022 Because of a physica l, mental, or emotional condition, do you have difficulty doing errands alone such as visiting a physician's office or shopping No 10/28/2022 11:27 AM Belen Mendez RN No [facility] Mental Status Date Assessment Result Facility 10-28-2022 Because of a physica l, mental, or emotional condition, do you have serious difficulty concentrating, remembering, or making decisions No 10/28/2022 11:27 AM EDT Belen Rosenthal RN No [facility] Clinical Notes 10-13-2020 to 01-27-2025 Patient InstructionsKang Buenrostro APRN.VENEER MATCHER - 01/07/2025 8:04 AM EDTTelephone Encounter - Iftikhar Cavanaugh APRN.VENEER MATCHER - 12/17/2024 4:54 PM EDTPatient InstructionsPatient Instructions Note Date & Type Note Facility 01-27-2025 Note HNO ID: [id number] Author: PATTI POON APRN.VENEER MATCHER Service: ? Author Type: Nurse Practitioner Type: Progress Notes Filed: 01/28/2025 07:48 Note Text: [facility] VIRTUAL VISIT I have communicated my name and active licensure. The patient's identity and physical location were verified at the time of this visit. Either the patient or their legal automobile sales representative has been informed of the risks and benefits of -- and alternatives to -- treatment through a remote evaluation and consents to proceed with the evaluation remotely. Currently living in [place] as she attends . Last semester for education. 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 HISTORY OF PRESENT ILLNESS: Fabian Menjivar is a 24 year old RHF who is diagnosed with focal seizures, and presents today for aura like feeling. They are an established patient of Dr. Mullen and was last seen on 04/14/2024 by FITO Pardo. 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 Seizures: Unsure if seizure or stress. Reports she wakes up with headache, still nauseated and may vomit, feels awful for a while afterwards. Has had several from sleep and or during daytime. ASM's: Lamictal 100mg BID Keppra 500mg BID In other health, stressed with student teaching, keeping up with school and work, unsure what is happening. Mood is low follows with psych at [facility].. 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 Driving: yes Mood: low, very pleasant young woman. Memory: good CURRENT OUTPATIENT MEDICATIONS: Current Outpatient Medications Medication Sig busPIRone (BUSPAR) 15 mg tablet Take 1 tablet by mouth two times a day. desvenlafaxine ER (PRISTIQ) 50 mg 24 hr tablet Take 1 tablet by mouth once daily. Take with 100 mg dose. desvenlafaxine ER (PRISTIQ) 100 mg 24 hr tablet Take 1 tablet by mouth daily with breakfast. Take with 50 mg dose. clonazePAM orally disintegrating (KLONOPIN WAFER) 0.[address] 1 TABLET ON TONGUE NEEDED FOR AURAS. DO NOT TAKE MORE THAN 2 TABLETS IN 24 HOURS zolpidem (AMBIEN) 5 mg tablet Take 1 tablet by mouth at bedtime as needed (sleep difficulties) for up to 30 days. folic acid 1 mg tablet Take 1 tablet by mouth once daily. dicyclomine (BENTYL) 10 mg capsule TAKE 1 CAPSULE BY MOUTH BEFORE DINNER. MAY REPEAT AT BEDTIME NEEDED. pantoprazole DR (PROTONIX) 40 mg tablet Take 1 tablet by mouth once daily. triamcinolone (KENALOG IN ORABASE) 0.1 % paste Apply to the apthous ulcer TID for 5 days levETIRAcetam (KEPPRA) 500 mg tablet Take 1 tablet by mouth two times a day. lamoTRIgine (LAMICTAL) 100 mg tablet Take 1 tablet by mouth two times a day. Drospirenone-Ethinyl Estradiol (LORYNA, 28,) 3-0.02 mg per tablet Take 1 tablet by mouth once daily. midazolam (NAYZILAM) 5 mg/spray (0.1 mL) nasal spray Use 1 spray in one nostril as needed for seizures lasting > 5 minutes or >=3 seizures in 8 hours. May repeat dose in alternate nostril after 10 minutes based on response and tolerability. No current facility-administered medications for this visit. 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 Family history of seizure disorder 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) 07/03/2022 Gastroesophageal reflux disease without esophagitis 02/16/2024 Generalized anxiety disorder 02/06/2020 Hiatal hernia History of heavy periods 2015 LGSIL on Pap smear of cervix 02/16/20242022 LSIL 2023 LSIL Needs pap 2024 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, 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) 10/25/2022 Low back strain 10/2015 [facility] Mixed obsessional thoughts and acts 03/25/2022 Moderate episode of recurrent major depressive disorder (HCC) 04/29/2024 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) 04/15/2022 Obesity, Class II, BMI 35-39.9 10/25/2022 OCD (obsessive compulsive disorder) PMH - PAST MEDICAL HISTORY OF 2006 normal color vision Rupture of anterior cruciate ligament of right knee 09/22/2020 Seizure-like activity (HCC) 07/01/2022 Spells of decreased attentiveness 02/21/2022 Trichomoniasis 10/2023 PAST SURGICAL HISTORY Procedure Laterality Date BRAIN SURGERY HX 10/25/2022 EGD 08/28/2020 Hiatal hernia, Variable villous abnormality with associated epithelial lymphocytosis, Gastric oxyntic-type mucosa with no pathologic diagnostic abnormality KNEE SURGERY HX Right 2020 ACL repair KNEE SURGERY HX Right 2021 Scar tissue removal PAST SURGICAL HISTORY OF Left 2016 ACL repair, (more content not included)... [facility] 01-07-2025 Instructions Kang Buenrostro, 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 - 01/07/2025 8:46 AM EDT - Continue taking Buspar twice a day and Pristiq 150 mg once daily as prescribed. - Use Ambien only on nights when you have trouble falling asleep; avoid alcohol and marijuana this semester. - Continue your seizure medications Keppra and Lamictal; in your letter to your parents, note that Keppra can cause mental and physical fatigue. 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 - After this visit, practice the hoffmann armor visualization: close your eyes, imagine a protective hoffmann aura from head to toe, roll your shoulders, and exhale forcefully to release stress. - When you notice anger or frustration toward others, channel that energy into actionable steps--like writing or breathing exercises--instead of letting it control your day. - Your epilepsy follow-up appointment is scheduled for June 08; if the wait is too long, contact the clinic to see if another team provider is available sooner. - Request refills for all your medications through your pharmacy s Express mail-order service to ensure no interruption. - Schedule a mental health follow-up in about 2-3 months by sending us a message. For those experiencing a suicidal crisis: --call the National Suicide Prevention Lifeline at 344 (085-454-9653) --text the Crisis Text Line (text HOME to 971135) --call 911 and let them know you are having a mental health crisis or go to your nearest Emergency Room for stabilization. --You can also call Mobile Crisis at 185-927-4368. -- You may call the department appointment line at [phone] to schedule your appointment. -- Please call my nurse at [phone] or send me a message in [employer] with any questions or concerns between appointments. documented in this encounter [facility] 01-07-2025 Note HNO ID: [id number] Author: KANG BUENROSTRO APRN.ROSA Service: ? Author Type: Nurse Practitioner Type: Progress Notes Filed: 01/07/2025 08:47 Note Text: FOLLOW UP - PSYCHIATRIC PROGRESS NOTE Visit Type:Virtual Visit utilizing two-way audio and video for at least a portion of the visit. Consent for virtual visit obtained verbally. Confidentiality limitations with virtual visits reviewed with the patient and guardian, if present, who have accepted the risk verbally prior to proceeding with encounter. I have communicated my name and active licensure. The patient's identity and physical location were verified at the time of this visit. Either the patient or their legal automobile sales representative has been informed of the risks and benefits of -- and alternatives to -- treatment through a remote evaluation and consents to proceed with the evaluation remotely. Recording using ambient [employer] software for draft documentation of the visit was discussed with the patient/authorized automobile sales representative; all questions welcomed and answered. Patient/authorized automobile sales representative agreed to proceed CC: Outpatient follow-up and safety monitoring of previously prescribed psychiatric medication, psychotherapy or other treatment HPI: Fabian Menjivar is a 24-year-old female with a history of epilepsy, anxiety, and depression, presenting for follow-up. 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 She describes her routine as school, work, bed, with only Sundays off, leaving her feeling mentally exhausted and running herself dry. She expresses frustration with her parents, who she feels are unsupportive of her request to take a semester off from work to focus on teaching. She perceives a disparity in expectations compared to her siblings, who were able to focus on sports during school withoutworking. She feels invalidated by her parents' lack of understanding and support, stating, I don't feel like I have time to really take care of myself anymore. 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 While she loves teaching and being around the children, the workload is overwhelming. She feels that the stress is affecting her physical health, noting that she is breaking out, not eating or sleeping well, and feels like a mess. She describes herself as burnt out and so tired, stating that the exhaustion is making her lose enjoyment in teaching. She has attempted to communicate her needs to her parents but feels that her concerns are dismissed. Her father focuses primarily on financial matters, and her mother compares her situation to her own experiences as a single mother, which Fabian finds unhelpful. She feels that her parents' expectations are unrealistic and that their lack of support is contributing to her stress and exhaustion. She is currently taking buspirone BID, desvenlafaxine 150 mg daily, and Ambien as needed for sleep, which she has used twice with good effect. She is also on Keppra and lamotrigine for seizure management. She denies alcohol and marijuana use. She reports ongoing issues with IBS but is not currently taking Bentyl. She is awaiting an appointment with her epilepsy doctor, which is scheduled for 2025, and is on a waitlist for an earlier appointment. Risks and benefits of the medication, including any black box warnings, were discussed with the patient. Interval Progress: Slightly worse PATIENT DATA: Generalized Anxiety Disorder Scale (SOO-7) 11/01/2024 11/08/2024 01/07/2025 SOO - 7 SCORES Score 17 17 21 (0-4) minimal anxiety, (5-9) mild anxiety, (10-14) moderate anxiety, (15-21) severe anxiety Patient Health Questionnaire (PHQ-9) 11/01/2024 11/08/2024 01/07/2025 PHQ-9 Score 23 23 18 (0-4) minimal depression, (5-9) mild depression, (10-14) moderate depression, (15-19) moderately severe depression, (20-27) severe depression PROMIS Global Health 11/01/2024 11/08/2024 01/07/2025 PROMIS Global Health - (T-Scores - the mean of general population = 50. 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 [facility] 01-07-2025 History of Presen t illness Narrative Images from the original note were not included. FOLLOW UP - PSYCHIATRIC PROGRESS NOTE Visit Type:Virtual Visit utilizing two-way audio and video for at least a portion of the visit. Consent for virtual visit obtained verbally. Confidentiality limitations with virtual visits reviewed with the patient and guardian, if present, who have accepted the risk verbally prior to proceeding with encounter. I have communicated my name and active licensure. The patient's identity and physical location were verified at the time of this visit. Either the patient or their legal automobile sales representative has been informed of the risks and benefits of -- and alternatives to -- treatment through a remote evaluation and consents to proceed with the evaluation remotely. Recording using [employer] software for draft documentation of the visit was discussed with the patient/authorized automobile sales representative; all questions welcomed and answered. Patient/authorized automobile sales representative agreed to proceed CC: Outpatient follow-up and safety monitoring of previously prescribed psychiatric medication, psychotherapy or other treatment HPI: Fabian Menjivar is a 24-year-old female with a history of epilepsy, anxiety, and depression, presenting for follow-up. 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 She describes her routine as school, work, bed, with only Sundays off, leaving her feeling mentally exhausted and running herself dry. She expresses frustration with her parents, who she feels are unsupportive of her request to take a semester off from work to focus on teaching. She perceives a disparity in expectations compared to her siblings, who were able to focus on sports during school without working. She feels invalidated by her parents' lack of understanding and support, stating, I don't feel like I have time to really take care of myself anymore. 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 While she loves teaching and being around the children, the workload is overwhelming. She feels that the stress is affecting her physical health, noting that she is breaking out, not eating or sleeping well, and feels like a mess. She describes herself as burnt out and so tired, stating that the exhaustion is making her lose enjoyment in teaching. She has attempted to communicate her needs to her parents but feels that her concerns are dismissed. Her father focuses primarily on financial matters, and her mother compares her situation to her own experiences as a single mother, which Fabian finds unhelpful. She feels that her parents' expectations are unrealistic and that their lack of support is contributing to her stress and exhaustion. She is currently taking buspirone BID, desvenlafaxine 150 mg daily, and Ambien as needed for sleep, which she has used twice with good effect. She is also on Keppra and lamotrigine for seizure management. She denies alcohol and marijuana use. She reports ongoing issues with IBS but is not currently taking Bentyl. She is awaiting an appointment with her epilepsy doctor, which is scheduled for 2025, and is on a waitlist for an earlier appointment. Risks and benefits of the medication, including any black box warnings, were discussed with the patient. Interval Progress: Slightly worse PATIENT DATA: Generalized Anxiety Disorder Scale (SOO-7) 11/01/2024 11/08/2024 01/07/2025 SOO - 7 SCORES Score 17 17 21 (0-4) minimal anxiety, (5-9) mild anxiety, (10-14) moderate anxiety, (15-21) severe anxiety Patient Health Questionnaire (PHQ-9) 11/01/2024 11/08/2024 01/07/2025 PHQ-9 Score 23 23 18 (0-4) minimal depression, (5-9) mild depression, (10-14) moderate depression, (15-19) moderately severe depression, (20-27) severe depression PROMIS Global Health 11/01/2024 11/08/2024 01/07/2025 PROMIS Global Health - (T-Scores - the mean of general population = 50. 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 Family history of seizure disorder Focal seizure with experiential sensory symptoms ([facility]) 07/03/2022 Gastroesophageal reflux disease without esophagitis 02/16/2024 Generalized anxiety disorder 02/06/2020 Hiatal hernia History of heavy periods 2015 LGSIL on Pap smear of cervix 02/16/20242022 LSIL 2023 LSIL Needs pap 2024 Eligio Diez APRN.VENEER MATCHER 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) 10/25/2022 Low back strain 10/2015 [facility]/ PT Mixed obsessional thoughts and acts 03/25/2022 Moderate episode of recurrent major depressive disorder (HCC) 04/29/2024 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) 04/15/2022 Obesity, Class II, BMI 35-39.9 10/25/2022 OCD (obsessive compulsive disorder) PMH - PAST MEDICAL HISTORY OF 2006 normal color vision Rupture of anterior cruciate ligament of right knee 09/22/2020 Seizure-like activity (HCC) 07/01/2022 Spells of decreased attentiveness 02/21/2022 Trichomoniasis 10/2023 PAST SURGICAL HISTORY Procedure Laterality Date BRAIN SURGERY HX 10/25/2022 EGD 08/28/2020 Hiatal hernia, Variable villous abnormality with associated epithelial lymphocytosis, Gastric oxyntic-type mucosa with no pathologic diagnostic abnormality KNEE SURGERY HX Right 2020 ACL repair KNEE SURGERY HX Right 2021 Scar tissue removal PAST SURGICAL HISTORY OF Left 2016 ACL repair, 8th grade Current Outpatient Medications Medication Sig Dispense Refill busPIRone (BUSPAR) 15 mg tablet Take 1 tablet by mouth two times a day. 180 tablet 0 desvenlafaxine ER (PRISTIQ) 50 mg 24 hr tablet Take 1 tablet by mouth once daily. Take with 100 mg dose. 30 tablet 1 desvenlafaxine ER (PRISTIQ) 100 mg 24 hr tablet Take 1 tablet by mouth daily with breakfast. Take with 50 mg dose. 90 tablet 0 clonazePAM orally disintegrating (KLONOPIN WAFER) 0.[address] 1 TABLET ON TONGUE NEEDED FOR AURAS. DO NOT TAKE MORE THAN 2 TABLETS IN 24 HOURS 10 tablet 0 zolpidem (AMBIEN) 5 mg tablet Take 1 tablet by mouth at bedtime as needed (sleep difficulties) for up to 30 days. 30 tablet 0 folic acid 1 mg tablet Take 1 tablet by mouth once daily. 90 tablet 3 dicyclomine (BENTYL) 10 mg capsule TAKE 1 CAPSULE BY MOUTH BEFORE DINNER. MAY REPEAT AT BEDTIME NEEDED. [address] (PROTONIX) 40 mg tablet Take 1 tablet by mouth once daily. 90 tablet 1 triamcinolone (KENALOG IN ORABASE) 0.1 % paste Apply to the apthous ulcer TID for 5 days 5 g 1 levETIRAcetam (KEPPRA) 500 mg tablet Take 1 tablet by mouth two times a day. 180 tablet 3 lamoTRIgine (LAMICTAL) 100 mg tablet Take 1 tablet by mouth two times a day. 180 tablet 3 Drospirenone-Ethinyl Estradiol (LORYNA, 28,) 3-0.02 mg per tablet Take 1 tablet by mouth once daily. 90 tablet 3 midazolam (NAYZILAM) 5 mg/spray (0.1 mL) nasal spray Use 1 spray in one nostril as needed for seizures lasting > 5 minutes or >=3 seizures in 8 hours. May repeat dose in alternate nostril after 10 minutes based on response and tolerability. 2 Each 1 No current facility-administered medications for this visit. ROS: See HPI PFSH: See HPI VITAL SIGNS: There were no vitals filed for this visit. MENTAL STATUS EXAM: Mental Status Exam General/Sensorium: In moderate distress Orientation: AAOx3 Appearance: Casually dressed and disheveled Eye contact: Fair Demeanor: Appropriately interactive Motor activity: Calm Speech: Articulate with appropriate rhythm and volume Mood: Sad, distressed and anxious Affect: Congruent with mood and tearful Thought process: Coherent and perseveration Associations: Normal Thought content: Discussing stressors, future goals or plans and hopelessness themes Suicidal ideation: none Homicidal ideation: none Abnormal/psychotic thoughts: Absent Perceptions: She does not appear internally stimulated. Attention: - fair - impacted due to seizure medications Memory: Short-term: - fair - impacted due to seizure medications Long-term: Intact Language: Intact Fund of knowledge: Appropriate Insight: Improving Judgment: Improving DATA REVIEWED: The PDMP report was reviewed and found to be appropriate without any signs of misuse or diversion. Psychiatric scales, Labs, and Electronic medical record ASSESSMENT & PLAN: 1. 1. Severe episode of recurrent major depressive disorder, without psychotic features (HCC) (F33.2) 2. Mixed obsessional thoughts and acts (F42.2) 3. Psychosocial stressors (Z65.8) 4. 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 - Continue BuSpar BID, Pristiq 150 mg daily, and Ambien PRN for insomnia. - Advised to avoid alcohol due to its depressant effects and potential to worsen mood symptoms. - Provided education on cognitive reframing techniques to manage stress and negative thought patterns. - Recommended writing a letter to parents to communicate current challenges and request support. - Encouraged use of relaxation techniques, including visualization and focused breathing exercises, to manage stress and promote mental well-being. - Follow-up in 2-3 months. 5. Encounter for long-term (current) use of medications (Z79.899) - Continue Keppra and Lamictal as prescribed for seizure management. - Advised patient to communicate with parents about the potential side effects of Keppra, including mental and physical fatigue. - Refill prescriptions for BuSpar, Pristiq, and Ambien I spent a total of 44 minutes on the date of the service which included preparing to see the patient, [id number] patient care, completing clinical documentation, obtaining and/or reviewing separately obtained history, counseling and educating the patient/family/caregiver, ordering medications, tests, or procedures, communicating with other HCPs (not separately reported), independently interpreting results (not separately reported), communicating results to the patient/family/caregiver, and care coordination (not separately reported). ADD ON PSYCHOTHERAPY CODE : No SIGNATURE: Kang Buenrostro APRN.CNP PATIENT NAME: Fabian Menjivar DATE: January 07, 2025 TIME: 8:04 AM documented in this encounter [facility] 12-17-2024 Telephone encounter Note The following approved medication requests have been transmitted electronically. Requested Prescriptions Signed Prescriptions Disp Refills clonazePAM orally disintegrating (KLONOPIN WAFER) 0.5 mg disintegrating tablet 10 tablet 0 Sig: PLACE 1 TABLET ON TONGUE NEEDED FOR AURAS. DO NOT TAKE MORE THAN 2 TABLETS IN 24 HOURS Authorizing Provider: IFTIKHAR CAVANAUGH APRN.CNP [facility] 12-17-2024 Miscellaneous Notes The following approved medication requests have been transmitted electronically. Requested Prescriptions Signed Prescriptions Disp Refills clonazePAM orally disintegrating (KLONOPIN WAFER) 0.5 mg disintegrating tablet 10 tablet 0 Sig: PLACE 1 TABLET ON TONGUE NEEDED FOR AURAS. DO NOT TAKE MORE THAN 2 TABLETS IN 24 HOURS Authorizing Provider: IFTIKHAR CAVANAUGH APRN.CNP Prescription Refill: Requested by: pharmacy Please E-Scribe Caller Contact Number: narciso Pharmacy Name: [facility] Number: [id number] Generic/ brand: generic 30 or 90 day supply requested: 90 Last appointment: 04/14/2024 Next Appointment: none Patient of Dr. Ryan Menjivar [phone] [facility] [address] documented in this encounter [facility] 12-17-2024 Telephone encounter Note Prescription Refill: Requested by: pharmacy Please E-Scribe Caller Contact Number: [email or web address] Pharmacy Name: [facility] Number: [id number] Generic/ brand: generic 30 or 90 day supply requested: 90 Last appointment: 04/14/2024 Next Appointment: none Patient of Dr. Ryan Menjivar [phone] [facility] [address] [facility] 12-16-2024 Telephone encounter Note The PDMP report was reviewed and found to be appropriate without any signs of misuse or diversion. [facility] 12-16-2024 Miscellaneous Notes The PDMP report was reviewed and found to be appropriate without any signs of misuse or diversion. Last: 11/08/24 ASSESSMENT & PLAN: 1. 1. 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 - Discontinued guanfacine 1 mg at bedtime due to lack of efficacy. - Initiated Ambien 5 mg at bedtime; instructed to take only when ready to sleep and not to combine with alcohol or marijuana. - Educated on potential side effects of Ambien, including sleepwalking and excessive drowsiness; advised to inform roommate about new medication. 2. Mixed obsessional thoughts and acts (F42.2) Persistent obsessive thoughts contributing to anxiety and insomnia. - Continue Pristiq 150 mg daily to manage obsessive thoughts. - Encouraged participation in Dialectical Behavior Therapy (DBT) through [facility] to develop coping skills. 3. Psychosocial stressors (Z65.8) Significant loneliness and social isolation contributing to depressive symptoms and maladaptive coping mechanisms, including increased marijuana use and hypersexuality. - Initiated referral to [facility] for intensive therapy to address psychosocial stressors and develop healthier coping mechanisms. 4. 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 Denies suicide plans or intentions - Continue BuSpar 15 mg BID to manage anxiety symptoms. - Reinforced importance of adherence to prescribed medications and avoidance of marijuana and alcohol. - Scheduled follow-up appointment in 2 months to monitor progress and adjust treatment as needed. 5. Marijuana use (F12.90) Increased marijuana use as a coping mechanism for insomnia and loneliness, contributing to worsening depressive symptoms and cognitive impairment. - Educated on the negative effects of marijuana on mental health and cognitive function. - Encouraged participation in addiction support groups through [facility]. 6. Encounter for long-term (current) use of medications (Z79.899) Currently on BuSpar 15 mg BID and Pristiq 150 mg daily; discontinued guanfacine 1 mg at bedtime due to lack of efficacy. - Prescribed Ambien 5 mg at bedtime for insomnia. - Reinforced adherence to prescribed medications and avoidance of marijuana and alcohol. - Scheduled follow-up appointment in 2 months to monitor progress and adjust treatment as needed. Next: 01/07/25 documented in this encounter [facility] 12-16-2024 Telephone encounter Note Last: 11/08/24 ASSESSMENT & PLAN: 1. 1. 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 - Discontinued guanfacine 1 mg at bedtime due to lack of efficacy. - Initiated Ambien 5 mg at bedtime; instructed to take only when ready to sleep and not to combine with alcohol or marijuana. - Educated on potential side effects of Ambien, including sleepwalking and excessive drowsiness; advised to inform roommate about new medication. 2. Mixed obsessional thoughts and acts (F42.2) Persistent obsessive thoughts contributing to anxiety and insomnia. - Continue Pristiq 150 mg daily to manage obsessive thoughts. - Encouraged participation in Dialectical Behavior Therapy (DBT) through [facility] to develop coping skills. 3. Psychosocial stressors (Z65.8) Significant loneliness and social isolation contributing to depressive symptoms and maladaptive coping mechanisms, including increased marijuana use and hypersexuality. - Initiated referral to [facility] for intensive therapy to address psychosocial stressors and develop healthier coping mechanisms. 4. 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 Denies suicide plans or intentions - Continue BuSpar 15 mg BID to manage anxiety symptoms. - Reinforced importance of adherence to prescribed medications and avoidance of marijuana and alcohol. - Scheduled follow-up appointment in 2 months to monitor progress and adjust treatment as needed. 5. Marijuana use (F12.90) Increased marijuana use as a coping mechanism for insomnia and loneliness, contributing to worsening depressive symptoms and cognitive impairment. - Educated on the negative effects of marijuana on mental health and cognitive function. - Encouraged participation in addiction support groups through [facility]. 6. Encounter for long-term (current) use of medications (Z79.899) Currently on BuSpar 15 mg BID and Pristiq 150 mg daily; discontinued guanfacine 1 mg at bedtime due to lack of efficacy. - Prescribed Ambien 5 mg at bedtime for insomnia. - Reinforced adherence to prescribed medications and avoidance of marijuana and alcohol. - Scheduled follow-up appointment in 2 months to monitor progress and adjust treatment as needed. Next: 01/07/25 [facility] 11-17-2024 Telephone encounter Note The following approved medication requests have been transmitted electronically. Requested Prescriptions Signed Prescriptions Disp Refills folic acid 1 mg tablet 90 tablet 3 Sig: Take 1 tablet by mouth once daily. Authorizing Provider: GEORGE CRAMER clonazePAM orally disintegrating (KLONOPIN WAFER) 0.5 mg disintegrating tablet 10 tablet 0 Sig: Take 1 tablet by mouth as needed (As needed for auras) for up to 30 days. Do not take more than 2 tablets in 24 hours. Authorizing Provider: GEORGE CRAMER PA-C PDMP website checked and validated. All prescriptions have been APPROPRIATELY filled. No suspicious activity was identified. 11/17/2024 by George Cramer PA-C [facility] 11-17-2024 Miscellaneous Notes The following approved medication requests have been transmitted electronically. Requested Prescriptions Signed Prescriptions Disp Refills folic acid 1 mg tablet 90 tablet 3 Sig: Take 1 tablet by mouth once daily. Authorizing Provider: GEORGE CRAMER clonazePAM orally disintegrating (KLONOPIN WAFER) 0.5 mg disintegrating tablet 10 tablet 0 Sig: Take 1 tablet by mouth as needed (As needed for auras) for up to 30 days. Do not take more than 2 tablets in 24 hours. Authorizing Provider: GEORGE CRAMER PA-C PDMP website checked and validated. All prescriptions have been APPROPRIATELY filled. No suspicious activity was identified. 11/17/2024 by George Cramer PA-C Prescription Refill: Requested by: pharmacy Please E-Scribe Caller Contact Number: [phone] (home) [facility] Number: [id number] Generic/ brand: generic 30 or 90 day supply requested: 90 Last appointment: 04/14/24 Next Appointment: none Patient of Dr. lucas Menjivar [phone] [facility] [address] documented in this encounter [facility] 11-16-2024 Telephone encounter Note Prescription Refill: Requested by: pharmacy Please E-Scribe Caller Contact Number: [phone] (home) [facility]acy Name: [facility] Number: [id number] Generic/ brand: generic 30 or 90 day supply requested: 90 Last appointment: 04/14/24 Next Appointment: none Patient of Dr. lucas Menjivar [phone] [facility] [address] [facility] 11-15-2024 Telephone encounter Note The patient has been identified by name and date of : Yes Caregiver verified no other encounters exist for this prescription request: Yes Caregiver confirmed with patient/requestor that no other refills are due, in the near future, with this provider at this time: Yes The last office visit in the department: 09/27/2024 Does the patient have a future office visit with this provider/department: Yes 03/28/2025 Requested Prescriptions Pending Prescriptions Disp Refills dicyclomine (BENTYL) 10 mg capsule 90 capsule 3 Sig: TAKE 1 CAPSULE BY MOUTH BEFORE DINNER. MAY REPEAT AT BEDTIME NEEDED. pantoprazole DR (PROTONIX) 40 mg tablet 90 tablet 1 Sig: Take 1 tablet by mouth once daily. triamcinolone (KENALOG IN ORABASE) 0.1 % paste 5 g 1 Sig: Apply to the apthous ulcer TID for 5 days Sara Rooney RN November 15, 2024 1:52 PM [facility] 11-15-2024 Miscellaneous Notes The patient has been identified by name and date of : Yes Caregiver verified no other encounters exist for this prescription request: Yes Caregiver confirmed with patient/requestor that no other refills are due, in the near future, with this provider at this time: Yes The last office visit in the department: 09/27/2024 Does the patient have a future office visit with this provider/department: Yes 03/28/2025 Requested Prescriptions Pending Prescriptions Disp Refills dicyclomine (BENTYL) 10 mg capsule 90 capsule 3 Sig: TAKE 1 CAPSULE BY MOUTH BEFORE DINNER. MAY REPEAT AT BEDTIME NEEDED. pantoprazole DR (PROTONIX) 40 mg tablet 90 tablet 1 Sig: Take 1 tablet by mouth once daily. triamcinolone (KENALOG IN ORABASE) 0.1 % paste 5 g 1 Sig: Apply to the apthous ulcer TID for 5 days Sara Rooney RN November 15, 2024 1:52 PM documented in this encounter [facility] 11-08-2024 Instructions Kang Buenrostro, 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 - 11/08/2024 11:55 AM EDT We discussed your mental health and coping strategies: - You shared concerns about loneliness, depression, and current coping mechanisms, including marijuana use and hypersexual behaviors. I appreciate your honesty and insight into these challenges. - I recommended starting the [facility] DBT (Dialectical Behavior Therapy) program to help you develop healthier coping strategies. Please visit [facility] to explore group therapy options and schedule an intake. Let them know your schedule and that I am your outpatient provider. The program includes group therapy 3-4 days a week (3 hours per session) and one-on-one therapy once a week. They also offer support for addiction, which may be helpful for your current struggles. - We discussed the importance of focusing on your present needs rather than worrying about the future. Therapy will help you address behaviors and thought patterns that are not serving you well. We discussed your sleep difficulties: - I prescribed Ambien (zolpidem) 5 mg to help you fall asleep and stay asleep. Take this medication only when you are ready to go to bed and can get 7-8 hours of sleep. Do not take it if you have used marijuana, alcohol, or clonazepam that day, as combining these substances can be dangerous. - Rare side effects of Ambien include sleepwalking or engaging in activities like sleep eating. Consider informing your roommate and taking precautions, such as placing a pinedo or other alert near your door, to ensure safety. - This prescription has been sent to [facility] and should arrive within 5-7 days. Let me know if you experience any side effects or if the dose needs adjustment. We discussed your current medications: - Continue taking BuSpar (buspirone) 15 mg twice daily and Pristiq (desvenlafaxine) 150 mg daily as prescribed. Refills have been sent to [facility] to ensure you do not run out. - Discontinue guanfacine 1 mg at bedtime, as you have not noticed any benefit from it. Hold on to any remaining medication in case we decide to trial it again in the future. - If you take clonazepam for seizures, do not take Ambien on the same day, as the combination can be too sedating. Follow-up: - Your next virtual visit is scheduled for January 07, at 8:00 AM. - Reach out to me if you have any concerns about your medications, therapy, or other health needs. Thank you for your openness during today s visit. I look forward to supporting you as you work toward your goals. For those experiencing a suicidal crisis: --call the National Suicide Prevention Lifeline at 248 (447-825-7031) --text the Crisis Text Line (text HOME to 140456) --call 221 and let them know you are having a mental health crisis or go to your nearest Emergency Room for stabilization. --You can also call Mobile Crisis at 142-651-2246. -- You may call the department appointment line at [phone] to schedule your appointment. -- Please call my nurse at [phone] or send me a message in [employer] with any questions or concerns between appointments. documented in this encounter [facility] 11-08-2024 Note HNO ID: [id number] Author: KANG BUENROSTRO APRN.CNP Service: ? Author Type: Nurse Practitioner Type: Progress Notes Filed: 11/08/2024 11:55 Note Text: FOLLOW UP - PSYCHIATRIC PROGRESS NOTE Visit Type:Virtual Visit utilizing two-way audio and video for at least a portion of the visit. Consent for virtual visit obtained verbally. Confidentiality limitations with virtual visits reviewed with the patient and guardian, if present, who have accepted the risk verbally prior to proceeding with encounter. I have communicated my name and active licensure. The patient's identity and physical location were verified at the time of this visit. Either the patient or their legal automobile sales representative has been informed of the risks and benefits of -- and alternatives to -- treatment through a remote evaluation and consents to proceed with the evaluation remotely. Recording using [employer] software for draft documentation of the visit was discussed with the patient/authorized automobile sales representative; all questions welcomed and answered. Patient/authorized automobile sales representative agreed to proceed CC: Outpatient follow-up and safety monitoring of previously prescribed psychiatric medication, psychotherapy or other treatment HPI: Patient is a 24-year-old female with a history of depression, anxiety, and OCD, presenting for follow-up. The patient reports persistent feelings of loneliness contributing to her depression. She has been using cannabis more frequently, approximately one gram per week, primarily through disposable vapes. This usage is mainly at bedtime to help with sleep and is more frequent when she is alone. She expresses concern about this increased use, noting it as a replacement for her previous alcohol consumption. She denies current alcohol use. She describes difficulty sleeping without cannabis due to racing thoughts, which vary in content. She also engages in sexual activity with multiple partners as a means to cope with loneliness, stating, I'll take whatever I can get. She acknowledges feeling terrible about this behavior afterward and recognizes it as an unhealthy coping mechanism. The patient expresses ambivalence about future relationships and family, stating she has no interest in settling down and does not want children. She worries about her current behaviors affecting her future, saying, I'm already doubting myself for when I'm older and I'm not even there yet. She reports ongoing suicidal thoughts, describing them as always just in the back of my head. She denies having a plan but frequently questions the purpose of her life, stating, What's the point in all this? I don't enjoy it, why am I doing it? She notes feeling fine until she is alone, at which point her mood worsens. She describes her eating habits as weird, often not eating until dinner due to morning sickness and gagging related to GERD. She reports overeating at night, influenced by cannabis use. She expresses frustration with her current situation, stating, I want to stop, but I don't know how to. She is currently taking BuSpar 15 mg BID, Pristiq 150 mg daily, and guanfacine 1 mg at bedtime. She reports satisfaction with BuSpar and Pristiq, noting they have been helpful, but has not noticed any benefit from guanfacine. She also has clonazepam prescribed for seizures, which she takes rarely. 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 She lives with roommates, with one currently present and more expected in November. Risks and benefits of the medication, including any black box warnings, were discussed with the patient. Interval Progress: Slightly worse PATIENT DATA: Generalized Anxiety Disorder Scale (SOO-7) 09/26/2024 11/01/2024 11/08/2024 SOO - 7 SCORES Score 21 17 17 (0-4) minimal anxiety, (5-9) mild anxiety, (10-14) moderate anxiety, (15-21) severe anxiety Patient Health Questionnaire (PHQ-9) 09/26/2024 11/01/2024 11/08/2024 PHQ-9 Score 16 23 23 (0-4) minimal depression, (5-9) mild depression, (10-14) moderate depression, (15-19) moderately severe depression, (20-27) severe depression PROMIS Global Health 07/07/2024 11/01/2024 11/08/2024 PROMIS Global Health - (T-Scores - the mean of general population = 50. 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 [facility] 11-08-2024 History of Presen t illness Narrative Images from the original note were not included. FOLLOW UP - PSYCHIATRIC PROGRESS NOTE Visit Type:Virtual Visit utilizing two-way audio and video for at least a portion of the visit. Consent for virtual visit obtained verbally. Confidentiality limitations with virtual visits reviewed with the patient and guardian, if present, who have accepted the risk verbally prior to proceeding with encounter. I have communicated my name and active licensure. The patient's identity and physical location were verified at the time of this visit. Either the patient or their legal automobile sales representative has been informed of the risks and benefits of -- and alternatives to -- treatment through a remote evaluation and consents to proceed with the evaluation remotely. Recording using [employer] software for draft documentation of the visit was discussed with the patient/authorized automobile sales representative; all questions welcomed and answered. Patient/authorized automobile sales representative agreed to proceed CC: Outpatient follow-up and safety monitoring of previously prescribed psychiatric medication, psychotherapy or other treatment HPI: Patient is a 24-year-old female with a history of depression, anxiety, and OCD, presenting for follow-up. The patient reports persistent feelings of loneliness contributing to her depression. She has been using cannabis more frequently, approximately one gram per week, primarily through disposable vapes. This usage is mainly at bedtime to help with sleep and is more frequent when she is alone. She expresses concern about this increased use, noting it as a replacement for her previous alcohol consumption. She denies current alcohol use. She describes difficulty sleeping without cannabis due to racing thoughts, which vary in content. She also engages in sexual activity with multiple partners as a means to cope with loneliness, stating, I'll take whatever I can get. She acknowledges feeling terrible about this behavior afterward and recognizes it as an unhealthy coping mechanism. The patient expresses ambivalence about future relationships and family, stating she has no interest in settling down and does not want children. She worries about her current behaviors affecting her future, saying, I'm already doubting myself for when I'm older and I'm not even there yet. She reports ongoing suicidal thoughts, describing them as always just in the back of my head. She denies having a plan but frequently questions the purpose of her life, stating, What's the point in all this? I don't enjoy it, why am I doing it? She notes feeling fine until she is alone, at which point her mood worsens. She describes her eating habits as weird, often not eating until dinner due to morning sickness and gagging related to GERD. She reports overeating at night, influenced by cannabis use. She expresses frustration with her current situation, stating, I want to stop, but I don't know how to. She is currently taking BuSpar 15 mg BID, Pristiq 150 mg daily, and guanfacine 1 mg at bedtime. She reports satisfaction with BuSpar and Pristiq, noting they have been helpful, but has not noticed any benefit from guanfacine. She also has clonazepam prescribed for seizures, which she takes rarely. 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 She lives with roommates, with one currently present and more expected in November. Risks and benefits of the medication, including any black box warnings, were discussed with the patient. Interval Progress: Slightly worse PATIENT DATA: Generalized Anxiety Disorder Scale (SOO-7) 09/26/2024 11/01/2024 11/08/2024 SOO - 7 SCORES Score 21 17 17 (0-4) minimal anxiety, (5-9) mild anxiety, (10-14) moderate anxiety, (15-21) severe anxiety Patient Health Questionnaire (PHQ-9) 09/26/2024 11/01/2024 11/08/2024 PHQ-9 Score 16 23 23 (0-4) minimal depression, (5-9) mild depression, (10-14) moderate depression, (15-19) moderately severe depression, (20-27) severe depression PROMIS Global Health 07/07/2024 11/01/2024 11/08/2024 PROMIS Global Health - (T-Scores - the mean of general population = 50. Five points is a clinically meaningful difference.) Physical T-Score 42.3 44.9 44.9 Mental T-Score 25.1 25.1 25.1 PAST MEDICAL HISTORY Diagnosis Date Anxiety and depression Bipolar 2 disorder ([facility]) Borderline personality disorder ([facility]) 04/23/2024 Brain tumor ([facility]) Celiac disease ([facility]) 09/22/2020 Chiari malformation type I ([facility]) 03/18/2022 Chlamydia 02/17/2024 Depression 12/05/2022 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[facility]) 03/18/2022 Family history of seizure disorder Focal seizure with experiential sensory symptoms ([facility]) 07/03/2022 Gastroesophageal reflux disease without esophagitis 02/16/2024 Generalized anxiety disorder 02/06/2020 Hiatal hernia History of heavy periods 2015 LGSIL on Pap smear of cervix 02/16/20242022 LSIL 2023 LSIL Needs pap 2024 Eligio Diez, 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 ([facility]) 10/25/2022 Low back strain 10/2015 [facility] Mixed obsessional thoughts and acts 03/25/2022 Moderate episode of recurrent major depressive disorder ([facility]) 04/29/2024 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[facility]) 04/15/2022 Obesity, Class II, BMI 35-39.9 10/25/2022 OCD (obsessive compulsive disorder) PMH - PAST MEDICAL HISTORY OF 2007 normal color vision Rupture of anterior cruciate ligament of right knee 09/22/2020 Seizure-like activity ([facility]) 07/01/2022 Spells of decreased attentiveness 02/21/2022 Trichomoniasis 10/2023 PAST SURGICAL HISTORY Procedure Laterality Date BRAIN SURGERY HX 10/25/2022 EGD 08/28/2020 Hiatal hernia, Variable villous abnormality with associated epithelial lymphocytosis, Gastric oxyntic-type mucosa with no pathologic diagnostic abnormality KNEE SURGERY HX Right 2020 ACL repair KNEE SURGERY HX Right 2022 Scar tissue removal PAST SURGICAL HISTORY OF Left 2016 ACL repair, 8th grade Current Outpatient Medications Medication Sig Dispense Refill zolpidem (AMBIEN) 5 mg tablet Take 1 tablet by mouth at bedtime as needed (sleep difficulties) for up to 30 days. 30 tablet 0 busPIRone (BUSPAR) 15 mg tablet Take 1 tablet by mouth two times a day. 180 tablet 0 desvenlafaxine ER (PRISTIQ) 50 mg 24 hr tablet Take 1 tablet by mouth once daily. Take with 100 mg dose. 30 tablet 1 desvenlafaxine ER (PRISTIQ) 100 mg 24 hr tablet Take 1 tablet by mouth daily with breakfast. Take with 50 mg dose. 90 tablet 0 levETIRAcetam (KEPPRA) 500 mg tablet Take 1 tablet by mouth two times a day. 180 tablet 3 lamoTRIgine (LAMICTAL) 100 mg tablet Take 1 tablet by mouth two times a day. [address] (PROTONIX) 40 mg tablet Take 1 tablet by mouth once daily. 90 tablet 1 dicyclomine (BENTYL) 10 mg capsule TAKE 1 CAPSULE BY MOUTH BEFORE DINNER. MAY REPEAT AT BEDTIME NEEDED. 90 capsule 3 triamcinolone (KENALOG IN ORABASE) 0.1 % paste Apply to the apthous ulcer TID for 5 days (Patient taking differently: by DENTAL route as needed. Apply to the apthous ulcer TID for 5 days) 5 g 1 clonazePAM orally disintegrating (KLONOPIN WAFER) 0.5 mg disintegrating tablet Take 1 tablet by mouth as needed (As needed for auras) for up to 30 days. Do not take more than 2 tablets in 24 hours. 10 tablet 0 Drospirenone-Ethinyl Estradiol (LORYNA, 28,) 3-0.02 mg per tablet Take 1 tablet by mouth once daily. 90 tablet 3 midazolam (NAYZILAM) 5 mg/spray (0.1 mL) nasal spray Use 1 spray in one nostril as needed for seizures lasting > 5 minutes or >=3 seizures in 8 hours. May repeat dose in alternate nostril after 10 minutes based on response and tolerability. 2 Each 1 folic acid 1 mg tablet Take 1 tablet by mouth once daily. 90 tablet 3 No current facility-administered medications for this visit. ROS: See HPI PFSH: See HPI VITAL SIGNS: There were no vitals filed for this visit. MENTAL STATUS EXAM: Mental Status Exam General/Sensorium: Alert Orientation: AAOx3 Appearance: Casually dressed Eye contact: Appropriate Demeanor: Appropriately interactive Motor activity: Calm Speech: Articulate with appropriate rhythm and volume Mood: Sad Affect: Congruent with mood Thought process: Linear, logical, and goal-directed Associations: Normal Thought content: Discussing stressors, future goals or plans and worthlessness themes Suicidal ideation: intrusive suicidal thoughts with no plans or intention Homicidal ideation: none Abnormal/psychotic thoughts: Absent Perceptions: She does not appear internally stimulated. Attention: Intact Memory: Short-term: Intact Long-term: Intact Language: Intact Fund of knowledge: Appropriate Insight: Good Judgment: Fair DATA REVIEWED: PDMP website checked and validated. All prescriptions have been APPROPRIATELY filled. No suspicious activity was identified. 11/08/2024 by Kang Buenrostro APRN.VENEER MATCHER Psychiatric scales and Electronic medical record ASSESSMENT & PLAN: 1. 1. 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 - Discontinued guanfacine 1 mg at bedtime due to lack of efficacy. - Initiated Ambien 5 mg at bedtime; instructed to take only when ready to sleep and not to combine with alcohol or marijuana. - Educated on potential side effects of Ambien, including sleepwalking and excessive drowsiness; advised to inform roommate about new medication. 2. Mixed obsessional thoughts and acts (F42.2) Persistent obsessive thoughts contributing to anxiety and insomnia. - Continue Pristiq 150 mg daily to manage obsessive thoughts. - Encouraged participation in Dialectical Behavior Therapy (DBT) through [facility] to develop coping skills. 3. Psychosocial stressors (Z65.8) Significant loneliness and social isolation contributing to depressive symptoms and maladaptive coping mechanisms, including increased marijuana use and hypersexuality. - Initiated referral to [facility] for intensive therapy to address psychosocial stressors and develop healthier coping mechanisms. 4. 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 Denies suicide plans or intentions - Continue BuSpar 15 mg BID to manage anxiety symptoms. - Reinforced importance of adherence to prescribed medications and avoidance of marijuana and alcohol. - Scheduled follow-up appointment in 2 months to monitor progress and adjust treatment as needed. 5. Marijuana use (F12.90) Increased marijuana use as a coping mechanism for insomnia and loneliness, contributing to worsening depressive symptoms and cognitive impairment. - Educated on the negative effects of marijuana on mental health and cognitive function. - Encouraged participation in addiction support groups through [facility]. 6. Encounter for long-term (current) use of medications (Z79.899) Currently on BuSpar 15 mg BID and Pristiq 150 mg daily; discontinued guanfacine 1 mg at bedtime due to lack of efficacy. - Prescribed Ambien 5 mg at bedtime for insomnia. - Reinforced adherence to prescribed medications and avoidance of marijuana and alcohol. - Scheduled follow-up appointment in 2 months to monitor progress and adjust treatment as needed. PATIENT INSTRUCTIONS: We discussed your mental health and coping strategies: - You shared concerns about loneliness, depression, and current coping mechanisms, including marijuana use and hypersexual behaviors. I appreciate your honesty and insight into these challenges. - I recommended starting the [facility] DBT (Dialectical Behavior Therapy) program to help you develop healthier coping strategies. Please visit [facility] to explore group therapy options and schedule an intake. Let them know your schedule and that I am your outpatient provider. The program includes group therapy 3-4 days a week (3 hours per session) and one-on-one therapy once a week. They also offer support for addiction, which may be helpful for your current struggles. - We discussed the importance of focusing on your present needs rather than worrying about the future. Therapy will help you address behaviors and thought patterns that are not serving you well. We discussed your sleep difficulties: - I prescribed Ambien (zolpidem) 5 mg to help you fall asleep and stay asleep. Take this medication only when you are ready to go to bed and can get 7-8 hours of sleep. Do not take it if you have used marijuana, alcohol, or clonazepam that day, as combining these substances can be dangerous. - Rare side effects of Ambien include sleepwalking or engaging in activities like sleep eating. Consider informing your roommate and taking precautions, such as placing a pinedo or other alert near your door, to ensure safety. - This prescription has been sent to [facility] and should arrive within 5-7 days. Let me know if you experience any side effects or if the dose needs adjustment. We discussed your current medications: - Continue taking BuSpar (buspirone) 15 mg twice daily and Pristiq (desvenlafaxine) 150 mg daily as prescribed. Refills have been sent to [facility] to ensure you do not run out. - Discontinue guanfacine 1 mg at bedtime, as you have not noticed any benefit from it. Hold on to any remaining medication in case we decide to trial it again in the future. - If you take clonazepam for seizures, do not take Ambien on the same day, as the combination can be too sedating. Follow-up: - Your next virtual visit is scheduled for Friday, January 07, at 8:00 AM. - Reach out to me if you have any concerns about your medications, therapy, or other health needs. Thank you for your openness during today s visit. I look forward to supporting you as you work toward your goals. Medical Decision Making: Problems: Moderate: 1+ chronic illnesses with change and 2+ stable chronic illnesses Risk: Moderate: Moderate risk from testing/treatment and Drug management Medical Decision Making Level: 4 - Moderate ADD ON PSYCHOTHERAPY CODE : No SIGNATURE: Kang Buenrostro APRN.CNP PATIENT NAME: Fabian Menjivar DATE: November 08, 2024 TIME: 11:04 AM documented in this encounter [facility] 11-04-2024 Miscellaneous Notes The following approved medication requests have been transmitted electronically. Requested Prescriptions Signed Prescriptions Disp Refills levETIRAcetam (KEPPRA) 500 mg tablet 180 tablet 3 Sig: Take 1 tablet by mouth two times a day. Authorizing Provider: IFTIKHAR CAVANAUGH APRN.CNP Prescription Refill: Requested by: pharmacy Please E-Scribe Caller Contact Number: Pharmacy Name: [facility] Pharmacy Number: [phone] Generic/ brand: Generic 30 or 90 day supply requested: 90 Last appointment: 04/14/24 Next Appointment: none Patient of Dr. Lucas Menjivar [id number] [address] [facility] [address] documented in this encounter [facility] 11-04-2024 Telephone encounter Note The following approved medication requests have been transmitted electronically. Requested Prescriptions Signed Prescriptions Disp Refills levETIRAcetam (KEPPRA) 500 mg tablet 180 tablet 3 Sig: Take 1 tablet by mouth two times a day. Authorizing Provider: IFTIKHAR CAVANAUGH APRN.CNP [facility] 11-04-2024 Telephone encounter Note Prescription Refill: Requested by: pharmacy Please E-Scribe Caller Contact Number: Pharmacy Name: [facility] Pharmacy Number: [phone] Generic/ brand: Generic 30 or 90 day supply requested: 90 Last appointment: 04/14/24 Next Appointment: none Patient of Dr. Lucas Menjivar [id number] [address] [facility] [address] [facility] 10-04-2024 Telephone encounter Note The following approved medication requests have been transmitted electronically. Requested Prescriptions Signed Prescriptions Disp Refills lamoTRIgine (LAMICTAL) 100 mg tablet 180 tablet 3 Sig: Take 1 tablet by mouth two times a day. Authorizing Provider: IFTIKHAR CAVANAUGH APRN.VENEER MATCHER [facility] 10-04-2024 Miscellaneous Notes The following approved medication requests have been transmitted electronically. Requested Prescriptions Signed Prescriptions Disp Refills lamoTRIgine (LAMICTAL) 100 mg tablet 180 tablet 3 Sig: Take 1 tablet by mouth two times a day. Authorizing Provider: IFTIKHAR CAVANAUGH APRN.VENEER MATCHER Prescription Refill:NEW PHARMACY REQUEST; PLEASE RE-APPROVE. Requested by: patient Please E-Scribe Caller Contact Number: [facility] Name: [facility] Number: [phone] Generic/ brand: 30 or 90 day supply requested: 90 Last appointment: 09/28/24 Next Appointment: none Patient of Dr. Lucas Menjivar [id number] [address] [facility] [address] documented in this encounter [facility] 10-04-2024 Telephone encounter Note Prescription Refill:NEW PHARMACY REQUEST; PLEASE RE-APPROVE. Requested by: patient Please E-Scribe Caller Contact Number: [facility]acy Name: [facility] Number: [phone] Generic/ brand: 30 or 90 day supply requested: 90 Last appointment: 09/28/24 Next Appointment: none Patient of Dr. Lucas Menjivar [id number] [facility] [address] [facility] 09-28-2024 Note HNO ID: [id number] Author: ALVARO MAGANA MD Service: ? 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 MRI today shows no recurrence of neoplasm. There is some suggestion that her right posterior hippocampus is now smaller. She admits to having 4 seizures since surgery mostly when stressed or missing medication. Recommend follow-up MRI in 1 year. 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 MRI today shows no recurrence of neoplasm. There is some suggestion that her right posterior hippocampus is now smaller. She admits to having 4 seizures since surgery mostly when stressed or missing medication. Recommend follow-up MRI in 1 year. Alvaro Magana MD documented in this encounter [facility] 09-28-2024 History of Presen t illness Narrative Radiology Service Progress Note DATE OF SERVICE: September 28, 2024 TIME: 10:57 AM PATIENT IDENTITY VERIFICATION COMPLETED USING TWO (2) STANDARD IDENTIFIERS: Name and Date of confirmed by patient verbally. FALL SCREENING: Has the patient had 2 falls in the last year or 1 fall with injury or currently using an Ambulatory Assistive Device (Walker, Cane, Wheelchair, Crutches, etc.)? No PATIENT GENDER DATA: Assigned female at . status: : No status: NO. 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: No ALLERGIES: Reviewed and unchanged CONTRAST ALLERGY: NO. EXAM: MRI - CONTRAST TYPE: GROUP II PERIPHERAL IV DATA: Ambulatory: A peripheral IV was started in the Right antecubital site with a Butterfly: 25 gauge. RADIOLOGY DEPARTMENT: MR; Exam(s) Completed: Head: Routine Brain. Lavender Administered: No SIGNATURE: FAREED [place]) PATIENT NAME: Fabian Menjivar DATE: September 28, 2024 TIME: 10:57 AM documented in this encounter [facility] 09-28-2024 Note HNO ID: [id number] Author: YASH OSULLIVAN RT(R) Service: Radiology Author Type: Technologist Type: Progress Notes Filed: 09/28/2024 11:11 Note Text: Radiology Service Progress Note DATE OF SERVICE: September 28, 2024 TIME: 10:57 AM PATIENT IDENTITY VERIFICATION COMPLETED USING TWO (2) STANDARD IDENTIFIERS: Name and Date of confirmed by patient verbally. FALL SCREENING: Has the patient had 2 falls in the last year or 1 fall with injury or currently using an Ambulatory Assistive Device (Walker, Cane, Wheelchair, Crutches, etc.)? No PATIENT GENDER DATA: Assigned female at . status: : No status: NO. 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: No ALLERGIES: Reviewed and unchanged CONTRAST ALLERGY: NO. EXAM: MRI - CONTRAST TYPE: GROUP II PERIPHERAL IV DATA: Ambulatory: A peripheral IV was started in the Right antecubital site with a Butterfly: 25 gauge. RADIOLOGY DEPARTMENT: MR; Exam(s) Completed: Head: Routine Brain. Lavender Administered: No SIGNATURE: RT Jacobo(R) PATIENT NAME: Fabian Menjivar DATE: September 28, 2024 TIME: 10:57 AM [facility] 09-27-2024 Note HNO ID: [id number] Author: BRAULIO TRONCOSO MD Service: ? Author Type: Physician Type: Progress Notes Filed: 09/27/2024 10:31 Note Text: This note was created using [employer]. 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 She had no new concerns. She was on pantoprazole for GERD, and dicyclomine for diarrhea related to celiac and possibly irritable bowel syndrome. She had chronic stable nausea, with occasional vomiting. 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 She sees psychiatry for mental health. Review of Systems Constitutional: Negative for fatigue, fever and unexpected weight change. HENT: Negative for congestion, sneezing and trouble swallowing. Eyes: Negative for visual disturbance. Respiratory: Negative for cough, shortness of breath and wheezing. Cardiovascular: Negative for chest pain and palpitations. Gastrointestinal: Negative for abdominal pain and constipation. See HPI Genitourinary: Negative for dysuria. Musculoskeletal: Negative for arthralgias and back pain. Neurological: Negative for dizziness, syncope, weakness and headaches. 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 Family history of seizure disorder Focal seizure with experiential sensory symptoms ([facility]) 07/03/2022 Gastroesophageal reflux disease without esophagitis 02/16/2024 Generalized anxiety disorder 02/06/2020 Hiatal hernia History of heavy periods 2015 LGSIL on Pap smear of cervix 02/16/20242022 LSIL 2023 LSIL Needs pap 2024 Eligio Diez APRN.VENEER MATCHER 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) 10/25/2022 Low back strain 10/2015 [facility]/ PT Mixed obsessional thoughts and acts 03/25/2022 Moderate episode of recurrent major depressive disorder (HCC) 04/29/2024 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[facility]) 04/15/2022 Obesity, Class II, BMI 35-39.9 10/25/2022 OCD (obsessive compulsive disorder) PMH - PAST MEDICAL HISTORY OF 2006 normal color vision Rupture of anterior cruciate ligament of right knee 09/22/2020 Seizure-like activity (HCC) 07/01/2022 Spells of decreased attentiveness 02/21/2022 Trichomoniasis 10/2023 PAST SURGICAL HISTORY Procedure Laterality Date BRAIN SURGERY HX 10/25/2022 EGD 08/28/2020 Hiatal hernia, Variable villous abnormality with associated epithelial lymphocytosis, Gastric oxyntic-type mucosa with no pathologic diagnostic abnormality KNEE SURGERY HX Right 2020 ACL repair KNEE SURGERY HX Right 2021 Scar tissue removal PAST SURGICAL HISTORY OF Left 2015 ACL repair, 8th grade FAMILY HISTORY Problem Relation Age of Onset No Known Problems Mother Diabetes Father No Known Problems Sister No Known Problems Brother other (Anneurism) Maternal Grandmother Heart Maternal Grandfather age 62 [place] Diabetes Paternal Grandmother No Known Problems Paternal Grandfather Heart Maternal Uncle Enlarged heart Diabetes Other mggfa Cancer Other MGGF Anesthesia Problems No Family History Social History Tobacco Use Smoking status: Never Smokeless tobacco: Never Vaping Use Vaping status: Some Days Substances: Nicotine, Flavoring Devices: Disposable Substance Use Topics Alcohol use: Yes Alcohol/week: 3.0 standard drinks of alcohol Types: 3 Standard drinks or equivalent per week Drug use: Yes Frequency: 2.0 times per week Types: Marijuana ALLERGIES No Known Allergies Current Outpatient Medications Medication Sig desvenlafaxine ER (PRISTIQ) 100 mg 24 hr tablet Take 1 tablet by mouth daily with breakfast. Take with 50 mg dose. desvenlafaxine ER (PRISTIQ) 50 mg 24 hr tablet Take 1 tablet by mouth once daily. Take with 100 mg dose. busPIRone (BUSPAR) 15 mg tablet Take 1 tablet by mouth two times a day. guanFACINE (INTUNIV) 1 mg ER 24 hr tablet(s) Take 1 tablet by mouth daily at bedtime. lamoTRIgine (LAMICTAL) 100 mg tablet Take 1 tablet by mouth two times a day. dicyclomine (BENTYL) 10 mg capsule TAKE 1 CAPSULE BY MOUTH BEFORE DINNER. MAY REPEAT AT BEDTIME NEEDED. triamcinolone (KENALOG IN ORABASE) 0.1 % paste Apply to the apthous ulcer TID for 5 days (Patient taking differently: by DENTAL route as needed. Apply to the apthous ulcer TID for 5 days) clonazePAM orally disintegrating (KLONOPIN WAFER) 0.5 mg disintegrating tablet Take 1 tablet by mouth as needed (As needed for auras) for up to 30 days. Do not take more than 2 tablets in 24 hours. Drospirenone-Ethinyl Estradiol (LORYNA, 28,) 3-0.02 mg per tablet Take 1 tablet by mouth o (more content not included)... [facility] 09-27-2024 History of Presen t illness Narrative This note was created using [employer]. Subjective Patient presents with: [facility] Fabian Menjivar is a 24 year old female who is transitioning from pediatrics. She had no new concerns. She was on pantoprazole for GERD, and dicyclomine for diarrhea related to celiac and possibly irritable bowel syndrome. She had chronic stable nausea, with occasional vomiting. 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 She sees psychiatry for mental health. Review of Systems Constitutional: Negative for fatigue, fever and unexpected weight change. HENT: Negative for congestion, sneezing and trouble swallowing. Eyes: Negative for visual disturbance. Respiratory: Negative for cough, shortness of breath and wheezing. Cardiovascular: Negative for chest pain and palpitations. Gastrointestinal: Negative for abdominal pain and constipation. See HPI Genitourinary: Negative for dysuria. Musculoskeletal: Negative for arthralgias and back pain. Neurological: Negative for dizziness, syncope, weakness and headaches. 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 Family history of seizure disorder Focal seizure with experiential sensory symptoms ([facility]) 07/03/2022 Gastroesophageal reflux disease without esophagitis 02/16/2024 Generalized anxiety disorder 02/06/2020 Hiatal hernia History of heavy periods 2015 LGSIL on Pap smear of cervix 02/16/20242022 LSIL 2023 LSIL Needs pap 2024 Eligio Diez, 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 ([facility]) 10/25/2022 Low back strain 10/2015 [facility] PT Mixed obsessional thoughts and acts 03/25/2022 Moderate episode of recurrent major depressive disorder ([facility]) 04/29/2024 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[facility]) 04/15/2022 Obesity, Class II, BMI 35-39.9 10/25/2022 OCD (obsessive compulsive disorder) PMH - PAST MEDICAL HISTORY OF 2006 normal color vision Rupture of anterior cruciate ligament of right knee 09/22/2020 Seizure-like activity ([facility]) 07/01/2022 Spells of decreased attentiveness 02/21/2022 Trichomoniasis 10/2023 PAST SURGICAL HISTORY Procedure Laterality Date BRAIN SURGERY HX 10/25/2022 EGD 08/28/2020 Hiatal hernia, Variable villous abnormality with associated epithelial lymphocytosis, Gastric oxyntic-type mucosa with no pathologic diagnostic abnormality KNEE SURGERY HX Right 2020 ACL repair KNEE SURGERY HX Right 2021 Scar tissue removal PAST SURGICAL HISTORY OF Left 2016 ACL repair, 8th grade FAMILY HISTORY Problem Relation Age of Onset No Known Problems Mother Diabetes Father No Known Problems Sister No Known Problems Brother other (Anneurism) Maternal Grandmother Heart Maternal Grandfather age 62 [place] Diabetes Paternal Grandmother No Known Problems Paternal Grandfather Heart Maternal Uncle Enlarged heart Diabetes Other mggfa Cancer Other MGGF Anesthesia Problems No Family History Social History Tobacco Use Smoking status: Never Smokeless tobacco: Never Vaping Use Vaping status: Some Days Substances: Nicotine, Flavoring Devices: Disposable Substance Use Topics Alcohol use: Yes Alcohol/week: 3.0 standard drinks of alcohol Types: 3 Standard drinks or equivalent per week Drug use: Yes Frequency: 2.0 times per week Types: Marijuana ALLERGIES No Known Allergies Current Outpatient Medications Medication Sig desvenlafaxine ER (PRISTIQ) 100 mg 24 hr tablet Take 1 tablet by mouth daily with breakfast. Take with 50 mg dose. desvenlafaxine ER (PRISTIQ) 50 mg 24 hr tablet Take 1 tablet by mouth once daily. Take with 100 mg dose. busPIRone (BUSPAR) 15 mg tablet Take 1 tablet by mouth two times a day. guanFACINE (INTUNIV) 1 mg ER 24 hr tablet(s) Take 1 tablet by mouth daily at bedtime. lamoTRIgine (LAMICTAL) 100 mg tablet Take 1 tablet by mouth two times a day. dicyclomine (BENTYL) 10 mg capsule TAKE 1 CAPSULE BY MOUTH BEFORE DINNER. MAY REPEAT AT BEDTIME NEEDED. triamcinolone (KENALOG IN ORABASE) 0.1 % paste Apply to the apthous ulcer TID for 5 days (Patient taking differently: by DENTAL route as needed. Apply to the apthous ulcer TID for 5 days) clonazePAM orally disintegrating (KLONOPIN WAFER) 0.5 mg disintegrating tablet Take 1 tablet by mouth as needed (As needed for auras) for up to 30 days. Do not take more than 2 tablets in 24 hours. Drospirenone-Ethinyl Estradiol (LORYNA, 28,) 3-0.02 mg per tablet Take 1 tablet by mouth once daily. levETIRAcetam (KEPPRA) 500 mg tablet Take 1 tablet by mouth two times a day. midazolam (NAYZILAM) 5 mg/spray (0.1 mL) nasal spray Use 1 spray in one nostril as needed for seizures lasting > 5 minutes or >=3 seizures in 8 hours. May repeat dose in alternate nostril after 10 minutes based on response and tolerability. folic acid 1 mg tablet Take 1 tablet by mouth once daily. pantoprazole DR (PROTONIX) 40 mg tablet Take 1 tablet by mouth once daily. No current facility-administered medications for this visit. Objective BP 116/70 Pulse 80 Resp 18 Ht 161.5 cm (5' 3.6) Wt 92.2 kg (203 lb 4.2 oz) LMP 02/09/2024 (Exact Date) BMI 35.33 kg/m Physical Exam Constitutional: General: She is not in acute distress. Appearance: She is not ill-appearing. HENT: Head: Normocephalic. Eyes: Extraocular Movements: Extraocular movements intact. Conjunctiva/sclera: Conjunctivae normal. Cardiovascular: Heart sounds: Normal heart sounds. No murmur heard. No gallop. Pulmonary: Breath sounds: Normal breath sounds. Abdominal: Palpations: Abdomen is soft. Tenderness: There is no abdominal tenderness. Musculoskeletal: General: No tenderness. Normal range of motion. Cervical back: Neck supple. Right lower leg: No edema. Left lower leg: No edema. Lymphadenopathy: Cervical: No cervical adenopathy. Neurological: General: No focal deficit present. Mental Status: She is alert. Psychiatric: Mood and Affect: Mood normal. Behavior: Behavior normal. Assessment and Plan 1. Does not have primary care provider - ICD9: V49.89, ICD10: Z75.8 (primary diagnosis) - We reviewed Social Drivers of Health - Alcohol in moderation advised. - Regular exercise advised. 2. Hiatal hernia - ICD9: 553.3, ICD10: K44.9 - Stable symptoms. 3. Need for vaccination - ICD9: V05.9, ICD10: Z23 - MENINGOCOCCAL B VACCINE (BEXSERO) - MENINGOCOCCAL B VACCINE (BEXSERO) - PNEUMOCOCCAL VACCINE, 20 VALENT (PREVNAR 20) 4. Gastroesophageal reflux disease without esophagitis - ICD9: 530.81, ICD10: K21.9 - Stable. - PANTOPRAZOLE 40 MG TABLET,DELAYED RELEASE 5. Celiac disease (HCC) - ICD9: 579.0, ICD10: K90.0 - She tried to follow a gluten free diet. 6. Moderate episode of recurrent major depressive disorder (HCC) - ICD9: 296.32, ICD10: F33.1 - Noted. Follow up with psychiatry. Braulio Troncoso MD documented in this encounter [facility] 09-24-2024 Telephone encounter Note Patient to contact insurance company and then notify us which pharmacy will cover these medications for the patient. [facility] 09-24-2024 Miscellaneous Notes Patient to contact insurance company and then notify us which pharmacy will cover these medications for the patient. documented in this encounter [facility] 09-11-2024 Telephone encounter Note Patient's request for medication is as follows Requested Prescriptions Pending Prescriptions Disp Refills pantoprazole DR (PROTONIX) 40 mg tablet [Pharmacy Med Name: Pantoprazole Sodium 40 MG Oral Tablet Delayed Release] 30 tablet 0 Sig: Take 1 tablet by mouth once daily Order entered - please phone pharmacy and notify patient. Halle Rios MD [facility] 09-11-2024 Miscellaneous Notes Patient's request for medication is as follows Requested Prescriptions Pending Prescriptions Disp Refills pantoprazole DR (PROTONIX) 40 mg tablet [Pharmacy Med Name: Pantoprazole Sodium 40 MG Oral Tablet Delayed Release] 30 tablet 0 Sig: Take 1 tablet by mouth once daily Order entered - please phone pharmacy and notify patient. Halle Rios MD Father calls back (patient has given authorization for parents to have access to all health information). He reports that patient does take medication and is in need of refill. Last WCC: greater than one year ago. Last visit for GERD 02/16/24. Father aware that patient is due for med follow up and will have patient schedule through [employer] [facility]. Verify RX Benefits Completed Last medication refill date: 08/06/24 Requesting 30 day supply Retail pharmacy updated: Completed Patient aware RX will be sent to pharmacy. No need to notify patient. Health Maintenance due: Meningococcal B Vaccine(1 of 2 - Standard) Never done Depression Screening Never done Pneumococcal Vaccine(1 of 2 - PCV) due on 2020 DTaP,Tdap,Td Vaccine(7 - Td or Tdap) due on 12/17/2023 Covid-19 Vaccine( season) due on 12/28/2023 Cervical Cancer Screening due on 02/15/2025 Olivia Marques RN Message left for patient to return call. Olivia Marques RN Message left for patient to return call. Olivia Marques RN documented in this encounter [facility] 09-11-2024 Telephone encounter Note Father calls back (patient has given authorization for parents to have access to all health information). He reports that patient does take medication and is in need of refill. Last WCC: greater than one year ago. Last visit for GERD 02/16/24. Father aware that patient is due for med follow up and will have patient schedule through [employer]. Verify RX Benefits Completed Last medication refill date: 08/06/24 Requesting 30 day supply Retail pharmacy updated: Completed Patient aware RX will be sent to pharmacy. No need to notify patient. Health Maintenance due: Meningococcal B Vaccine(1 of 2 - Standard) Never done Depression Screening Never done Pneumococcal Vaccine(1 of 2 - PCV) due on 2020 DTaP,Tdap,Td Vaccine(7 - Td or Tdap) due on 12/17/2023 Covid-19 Vaccine( season) due on 12/28/2023 Cervical Cancer Screening due on 02/15/2025 Olivia Marques RN [facility] 09-11-2024 Telephone encounter Note Message left for patient to return call. Olivia Marques RN [facility] 09-01-2024 Instructions Kang Buenrostro, KAREEM.VENEER MATCHER - 09/01/2024 9:59 AM EDT We discussed your current medications and mental health management: - Continue taking Intuniv (guanfacine) at bedtime. You reported that it is helping you relax, unwind, and fall asleep more easily without any noticeable side effects. We will maintain the current dose. - Continue taking BuSpar (buspirone) 15 mg twice daily. You mentioned that this dose is working well for daytime support. You are now taking the second dose earlier in the evening, which aligns with the intended schedule. If needed in the future, we can consider adding a third dose at night. - Continue taking Pristiq (desvenlafaxine) in the morning as prescribed. You reported no concerns or side effects with this medication. - Refills for Intuniv, BuSpar, and Pristiq have been sent to your preferred [facility] in [place]. These are 90-day refills to ensure you have enough medication until your next visit. We discussed your plans for Dialectical Behavior Therapy (DBT) Intensive Outpatient Program (IOP): - You expressed interest in prioritizing the DBT-IOP this summer and believe it will be beneficial for building skills to manage stress and prepare for the next school year. - You have already completed an intake with [facility] and have the contact information from a previous [employer] message (dated May 24). If you need a new referral or cannot locate the information, please send me a [employer] message. - Once you begin the DBT-IOP, let the program know you will need a referral for a one-on-one therapist to continue progress after completing the program. Establishing with a therapist will also allow you to participate in their wraparound program. We discussed your upcoming appointments: - You have an appointment with Dr. Marte, your brain surgeon, on September 28. During this visit, discuss any concerns about Keppra and its side effects. We discussed strategies for managing stress and personal growth: - You shared concerns about how you react to grades and interactions with your professor. We discussed reframing negative thoughts and viewing challenges as opportunities for growth. Consider asking your professor for specific feedback to improve in areas where you feel less confident. - To help reinforce positive thinking, look for motivational quotes that resonate with our discussions. Place them in visible areas, such as your phone wallpaper, laptop, or desk, as reminders to stay focused on growth and resilience. We scheduled your next follow-up: - Your next virtual appointment is scheduled for November 08, at 11:00 AM. If you need to make changes to this appointment, please contact our office. Please continue to monitor your symptoms and reach out if you have any concerns or questions before your next visit. For those experiencing a suicidal crisis: --call the National Suicide Prevention Lifeline at 988 (136-901-9733) --text the Crisis Text Line (text HOME to 101333) --call 911 and let them know you are having a mental health crisis or go to your nearest Emergency Room for stabilization. --You can also call Mobile Crisis at [phone]. -- You may call the department appointment line at [phone] to schedule your appointment. -- Please call my nurse at [phone] or send me a message in [employer] with any questions or concerns between appointments. documented in this encounter [facility] 09-01-2024 Note HNO ID: [id number] Author: KANG BUENROSTRO APRN.ROSA Service: ? Author Type: Nurse Practitioner Type: Progress Notes Filed: 09/01/2024 10:00 Note Text: FOLLOW UP - PSYCHIATRIC PROGRESS NOTE Visit Type: Virtual Visit utilizing two-way audio and video for at least a portion of the visit. Consent for virtual visit obtained verbally. Confidentiality limitations with virtual visits reviewed with the patient and guardian, if present, who have accepted the risk verbally prior to proceeding with encounter. I have communicated my name and active licensure. The patient's identity and physical location were verified at the time of this visit. Either the patient or their legal automobile sales representative has been informed of the risks and benefits of -- and alternatives to -- treatment through a remote evaluation and consents to proceed with the evaluation remotely. Recording using [employer] software for draft documentation of the visit was discussed with the patient/authorized automobile sales representative; all questions welcomed and answered. Patient/authorized automobile sales representative agreed to proceed CC: Outpatient follow-up and safety monitoring of previously prescribed psychiatric medication, psychotherapy or other treatment HPI: Patient is a 23-year-old female with a history of anxiety and insomnia, presenting for follow-up on medication management. The patient reports improvement in her anxiety and sleep since her last visit. She attributes this to the completion of her school semester, noting that the reduction in academic stress has been beneficial. 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 She reports positive effects from her current medication regimen. She is taking Intuniv (guanfacine) at bedtime, which she states has improved her ability to fall asleep and relax, reducing the frequency of worrying thoughts. She denies any side effects from Intuniv and feels that the current dose is sufficient, especially with the upcoming summer break. She is also taking BuSpar 15 mg BID and has adjusted her dosing schedule to take her afternoon dose earlier in the day, around 5264-9524, which she finds effective. She denies any concerns or side effects from BuSpar. Additionally, she is taking Pristiq in the morning and reports no side effects from this medication. The patient expresses interest in participating in a DBT IOP over the summer and has discussed this with her mother. She is waiting for her summer class schedule to finalize her plans but intends to prioritize the program. She is also scheduled to see her brain surgeon on September 28 and plans to discuss her current medications, including Keppra, with her epilepsy doctor. Looking forward to the summer, she mentions a vacation to [facility] at the end of September and her upcoming birthday. She will be working at an [employer] and taking two online summer classes. 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 She reports academic success this semester, earning mostly A's and one C. However, she describes significant anxiety and distress over receiving a D on a lesson plan, which she perceives as catastrophic. She also reports feeling that her professor talks down to her, which she takes personally and finds distressing, leading to strong negative feelings towards the professor. She acknowledges that these reactions may be related to her personality disorder and is working on managing these feelings with support from her parents. Risks and benefits of the medication, including any black box warnings, were discussed with the patient. Interval Progress: Slightly improved PATIENT DATA: Generalized Anxiety Disorder Scale (SOO-7) 06/03/2024 08/03/2024 09/01/2024 SOO - 7 SCORES Score 21 21 21 (0-4) minimal anxiety, (5-9) mild anxiety, (10-14) moderate anxiety, (15-21) severe anxiety Patient Health Questionnaire (PHQ-9) 07/07/2024 08/03/2024 09/01/2024 PHQ-9 Score 22 25 11 (0-4) minimal depression, (5-9) mild depression, (10-14) moderate depression, (15-19) moderately severe depression, (20-27) severe depression PAST MEDICAL HISTORY Diagnosis Date Anxiety and depression Bipolar 2 disorder (HCC) Brain tumor (HCC) Chlamydia 02/17/2024 Depression Family history of seizure disorder Hiatal hernia History of heavy periods 2014 Low back strain 10/2015 [facility] Obesity (BMI 30-39.9) 10/23/2022 OCD (obsessive compulsive disorder) PMH - PAST MEDICAL HISTORY OF 2006 normal color vision Seizures (HCC) Trichomoniasis 10/2023 PAST SURGICAL HISTORY Procedure Laterality Date BRAIN SURGERY HX 10/25/2022 EGD 08/28/2020 Hiatal hernia, Variable villous abnormality with associated epithelial lymphocytosis, Gastric oxyntic-type mucosa with no pathologic diagnostic abnormality (more content not included)... [facility] 09-01-2024 History of Presen t illness Narrative Images from the original note were not included. FOLLOW UP - PSYCHIATRIC PROGRESS NOTE Visit Type: Virtual Visit utilizing two-way audio and video for at least a portion of the visit. Consent for virtual visit obtained verbally. Confidentiality limitations with virtual visits reviewed with the patient and guardian, if present, who have accepted the risk verbally prior to proceeding with encounter. I have communicated my name and active licensure. The patient's identity and physical location were verified at the time of this visit. Either the patient or their legal automobile sales representative has been informed of the risks and benefits of -- and alternatives to -- treatment through a remote evaluation and consents to proceed with the evaluation remotely. Recording using [employer] software for draft documentation of the visit was discussed with the patient/authorized automobile sales representative; all questions welcomed and answered. Patient/authorized automobile sales representative agreed to proceed CC: Outpatient follow-up and safety monitoring of previously prescribed psychiatric medication, psychotherapy or other treatment HPI: Patient is a 23-year-old female with a history of anxiety and insomnia, presenting for follow-up on medication management. The patient reports improvement in her anxiety and sleep since her last visit. She attributes this to the completion of her school semester, noting that the reduction in academic stress has been beneficial. 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 She reports positive effects from her current medication regimen. She is taking Intuniv (guanfacine) at bedtime, which she states has improved her ability to fall asleep and relax, reducing the frequency of worrying thoughts. She denies any side effects from Intuniv and feels that the current dose is sufficient, especially with the upcoming summer break. She is also taking BuSpar 15 mg BID and has adjusted her dosing schedule to take her afternoon dose earlier in the day, around [id number], which she finds effective. She denies any concerns or side effects from BuSpar. Additionally, she is taking Pristiq in the morning and reports no side effects from this medication. The patient expresses interest in participating in a DBT IOP over the summer and has discussed this with her mother. She is waiting for her summer class schedule to finalize her plans but intends to prioritize the program. She is also scheduled to see her brain surgeon on September 28 and plans to discuss her current medications, including Keppra, with her epilepsy doctor. Looking forward to the summer, she mentions a vacation to [facility] at the end of September and her upcoming birthday. She will be working at an [employer] and taking two online summer classes. 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 She reports academic success this semester, earning mostly A's and one C. However, she describes significant anxiety and distress over receiving a D on a lesson plan, which she perceives as catastrophic. She also reports feeling that her professor talks down to her, which she takes personally and finds distressing, leading to strong negative feelings towards the professor. She acknowledges that these reactions may be related to her personality disorder and is working on managing these feelings with support from her parents. Risks and benefits of the medication, including any black box warnings, were discussed with the patient. Interval Progress: Slightly improved PATIENT DATA: Generalized Anxiety Disorder Scale (SOO-7) 06/03/2024 08/03/2024 09/01/2024 SOO - 7 SCORES Score 21 21 21 (0-4) minimal anxiety, (5-9) mild anxiety, (10-14) moderate anxiety, (15-21) severe anxiety Patient Health Questionnaire (PHQ-9) 07/07/2024 08/03/2024 09/01/2024 PHQ-9 Score 22 25 11 (0-4) minimal depression, (5-9) mild depression, (10-14) moderate depression, (15-19) moderately severe depression, (20-27) severe depression PAST MEDICAL HISTORY Diagnosis Date Anxiety and depression Bipolar 2 disorder (HCC) Brain tumor (HCC) Chlamydia 02/17/2024 Depression Family history of seizure disorder Hiatal hernia History of heavy periods 2015 Low back strain 10/2015 [facility]/ PT Obesity (BMI 30-39.9) 10/23/2022 OCD (obsessive compulsive disorder) PMH - PAST MEDICAL HISTORY OF 2006 normal color vision Seizures (HCC) Trichomoniasis 10/2023 PAST SURGICAL HISTORY Procedure Laterality Date BRAIN SURGERY HX 10/25/2022 EGD 08/28/2020 Hiatal hernia, Variable villous abnormality with associated epithelial lymphocytosis, Gastric oxyntic-type mucosa with no pathologic diagnostic abnormality KNEE SURGERY HX Right 2020 ACL repair KNEE SURGERY HX Right Scar tissue removal PAST SURGICAL HISTORY OF Left ACL repair ALLERGIES No Known Allergies Current Outpatient Medications on File Prior to Visit Medication Sig pantoprazole DR (PROTONIX) 40 mg tablet Take 1 tablet by mouth once daily guanFACINE (INTUNIV) 1 mg ER 24 hr tablet(s) Take 1 tablet by mouth daily at bedtime. busPIRone (BUSPAR) 15 mg tablet Take 1 tablet by mouth two times a day. desvenlafaxine ER (PRISTIQ) 50 mg 24 hr tablet Take 1 tablet by mouth once daily. Take with 100 mg dose. desvenlafaxine ER (PRISTIQ) 100 mg 24 hr tablet Take 1 tablet by mouth daily with breakfast. Take with 50 mg dose. lamoTRIgine (LAMICTAL) 100 mg tablet Take 1 tablet by mouth two times a day. dicyclomine (BENTYL) 10 mg capsule TAKE 1 CAPSULE BY MOUTH BEFORE DINNER. MAY REPEAT AT BEDTIME NEEDED. triamcinolone (KENALOG IN ORABASE) 0.1 % paste Apply to the apthous ulcer TID for 5 days clonazePAM orally disintegrating (KLONOPIN WAFER) 0.5 mg disintegrating tablet Take 1 tablet by mouth as needed (As needed for auras) for up to 30 days. Do not take more than 2 tablets in 24 hours. Drospirenone-Ethinyl Estradiol (LORYNA, 28,) 3-0.02 mg per tablet Take 1 tablet by mouth once daily. levETIRAcetam (KEPPRA) 500 mg tablet Take 1 tablet by mouth two times a day. midazolam (NAYZILAM) 5 mg/spray (0.1 mL) nasal spray Use 1 spray in one nostril as needed for seizures lasting > 5 minutes or >=3 seizures in 8 hours. May repeat dose in alternate nostril after 10 minutes based on response and tolerability. folic acid 1 mg tablet Take 1 tablet by mouth once daily. No current facility-administered medications on file prior to visit. ROS: See HPI PFSH: See HPI VITAL SIGNS: VITAL SIGNS: There were no vitals filed for this visit. Last 3 Encounter BP Readings: Date: BP: 04/29/2024 114/70 02/16/2024 118/74 02/16/2024 122/70 Labwork: CBC and Differential: WBC Date Value Ref Range Status 02/16/2024 8.48 3.70 - 11.00 k/uL Final RBC Date Value Ref Range Status 02/16/2024 4.52 3.90 - 5.20 m/uL Final Hematocrit Date Value Ref Range Status 02/16/2024 39.1 36.0 - 46.0 % Final MCV Date Value Ref Range Status 02/16/2024 86.5 80.0 - 100.0 fL Final MCH Date Value Ref Range Status 02/16/2024 29.6 26.0 - 34.0 pg Final MCHC Date Value Ref Range Status 02/16/2024 34.3 30.5 - 36.0 g/dL Final Platelet Count Date Value Ref Range Status 02/16/2024 392 150 - 400 k/uL Final MPV Date Value Ref Range Status 02/16/2024 9.4 9.0 - 12.7 fL Final Comprehensive Metabolic Panel: BUN Date Value Ref Range Status 02/16/2024 7 7 - 21 mg/dL Final Creatinine Date Value Ref Range Status 02/16/2024 0.65 0.58 - 0.96 mg/dL Final Sodium Date Value Ref Range Status 02/16/2024 136 136 - 144 mmol/L Final Potassium Date Value Ref Range Status 02/16/2024 4.1 3.7 - 5.1 mmol/L Final CO2 Date Value Ref Range Status 02/16/2024 21 (L) 22 - 30 mmol/L Final Albumin Date Value Ref Range Status 02/16/2024 4.3 3.9 - 4.9 g/dL Final ALT Date Value Ref Range Status 02/16/2024 32 7 - 38 U/L Final AST Date Value Ref Range Status 02/16/2024 26 13 - 35 U/L Final Gamma-Glutamyltransferase (GGT), Serum: GGT Date Value Ref Range Status 09/19/2023 30 6 - 46 U/L Final Vitamin B12: No components found for: [id number] Vitamin D, Total: No results found for: VITD Thyroid Stimulating Hormone (TSH): TSH Date Value Ref Range Status 09/19/2023 1.630 0.270 - 4.200 mIU/L Final Comment: If the patient is , TSH reference range varies by gestational period: First Trimester (weeks 9-12): 0.180-2.990 mIU/L Second Trimester: 0.110-3.980 mIU/L Third Trimester: 0.480-4.710 mIU/L Luciano Aviles et al. A Practical Approach for the Verifications and Determination of Site- and Trimester-Specific Reference Intervals for Thyroid Function tests in . Thyroid, 2019:29:3:412-420. Rodney Bronwing, et al. 2017 Guidelines of the [place] [employer] for the Diagnosis and Management of Thyroid Disease during and the . Thyroid, 2017:27:3:315-389. Hemoglobin A1C: No results found for: HGBA1C Lipid Panel: No results found for: CHOL, TRIG, HDL, LDL MENTAL STATUS EXAM: Appearance: Well dressed, well groomed Behavior: Behaves appropriately during the encounter Social relatedness: Euthymic Speech/Language: The patient demonstrates appropriate tone, prosody, shereen, phonetics, and syntax Mood: euthymic Affect: Full and appropriate to topic Orientation: Person, Place, Time and Situation Associations: Intact and linear Hallucinations: None Delusions: None Suicidal Ideation: No suicidal ideation, intent or plan. Homicidal Ideation: No homicidal ideation, intent or plan. Insight: Appropriate Judgment: Appropriate DATA REVIEWED: Psychiatric scales, Electronic medical record, lab results DIAGNOSIS: Generalized anxiety disorder (primary encounter diagnosis) Moderate episode of recurrent major depressive disorder (hcc) Mixed obsessional thoughts and acts Trauma and stressor-related disorder Psychosocial stressors Borderline personality disorder (hcc) GAF: -70-61 Some mild symptoms or some difficulty in social, occupational, or school functioning, but generally functioning pretty well. TREATMENT PLAN: 1. 1. 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 Intuniv has been effective in aiding sleep and reducing worrying thoughts without side effects. Increased BuSpar dosage to 15 mg BID has been beneficial for daytime anxiety management. No side effects reported from Pristiq. Patient exhibits cognitive distortions and interpersonal sensitivity, consistent with borderline personality disorder. Upcoming summer break may provide additional relief from academic stressors. - Continue current medications: Intuniv, BuSpar 15 mg BID, and Pristiq. - Sent 90-day refills for Intuniv and BuSpar, and a refill for Pristiq to [facility] in [place]. - Discussed the importance of Dialectical Behavior Therapy Intensive Outpatient Program (DBT IOP) for skill development; patient agrees to prioritize this over the summer. - Provided contact information for DBT IOP intake completed in April; patient to initiate contact and inform if a new referral is needed. - Encouraged patient to seek one-on-one therapy post-IOP for continued progress. - Advised patient to discuss Keppra side effects with neurosurgeon Dr. Marte on September 28. - Scheduled follow-up appointment on November 08 at 11:00 AM. MEDICATION CHANGES: Current medication regimen unchanged. Prescriptions given Risks and benefits of the medication, including any black box warnings, were discussed with the patient. Patient is aware to reach out with any questions, concerns, or worsening of symptoms prior to the next appointment. Patient educated on risks of substance use in combination with medications and advised that any substance use along with medications may alter their effectiveness. Follow Up: November 08 Medical Decision Making: Problems: Moderate: 2+ stable chronic illnesses Data: Unique source(s) for external note(s) reviewed: 2 Risk: Moderate: Moderate risk from testing/treatment and Drug management Medical Decision Making Level: 4 - Moderate ADD ON PSYCHOTHERAPY CODE : No SIGNATURE: Kang Buenrostro APRN.CNP PATIENT NAME: Fabian Menjivar DATE: September 01, 2024 TIME: 9:57 AM documented in this encounter [facility] 08-31-2024 Telephone encounter Note Message left for patient to return call. Olivia Marques RN [facility] 08-06-2024 Telephone encounter Note 30 day supply sent. Should have follow up on medication as has been since January that she was last seen. Thanks. [facility] 08-06-2024 Miscellaneous Notes 30 day supply sent. Should have follow up on medication as has been since January that she was last seen. Thanks. Request came from pharmacy. Left message to see if refill needed. Patient also to establish with adult medicine Rosie Lockett RN documented in this encounter [facility] 08-05-2024 Telephone encounter Note Request came from pharmacy. Left message to see if refill needed. Patient also to establish with adult medicine Rosie Lockett RN [facility] 08-04-2024 Instructions Kang Buenrostro APRN.ROSA - 08/04/2024 11:43 AM EDT TREATMENT PLAN: Start Intuniv 1 mg at bedtime to address impulsivity and mood dysregulation. Increase Buspar to 15 mg twice daily to manage anxiety symptoms. Take it in the morning and afternoon. Continue Pristiq 150 mg in the morning to manage mood and anxiety symptoms. Engage in DBT IOP when you are done with classes this semester. Follow up in 4 weeks. For those experiencing a suicidal crisis: --call the National Suicide Prevention Lifeline at 988 (570-971-5731) --text the Crisis Text Line (text HOME to 974091) --call 591 and let them know you are having a mental health crisis or go to your nearest Emergency Room for stabilization. --You can also call Mobile Crisis at [phone]. -- You may call the department appointment line at [phone] to schedule your appointment. -- Please call my nurse at [phone] or send me a message in [employer] with any questions or concerns between appointments. documented in this encounter [facility] 08-04-2024 Note HNO ID: [id number] Author: KANG BUENROSTRO APRN.CNP Service: ? Author Type: Nurse Practitioner Type: Progress Notes Filed: 08/04/2024 11:44 Note Text: FOLLOW UP - PSYCHIATRIC PROGRESS NOTE PATIENT: Fabian Menjivar DATE: August 04, 2024 Visit Type: Virtual Visit utilizing two-way audio and video for at least a portion of the visit. Consent for virtual visit obtained verbally. Confidentiality limitations with virtual visits reviewed with the patient and guardian, if present, who have accepted the risk verbally prior to proceeding with encounter. I have communicated my name and active licensure. The patient's identity and physical location were verified at the time of this visit. Either the patient or their legal automobile sales representative has been informed of the risks and benefits of -- and alternatives to -- treatment through a remote evaluation and consents to proceed with the evaluation remotely. All information is from Patient report except when noted. This evaluation is NOT intended for forensic, disability or child custody purposes. CC: Presenting today for follow up regarding psychiatric medication management. HPI: Treatment Plan from Last Visit on 07/07/2024: TREATMENT PLAN: Discontinue Rexulti due to Akathisia side effect. Increase Pristiq to a total dose of 150 mg XR and take with breakfast every morning to help with anxiety symptoms. Start Buspar 10 mg twice daily to address anxiety symptoms. Reach out to [facility] and engage in trauma focused IOP. Follow up in 4 weeks. Today Fabian shares that I had a really bad day yesterday. She got irritable towards her father. She reports that little things get to her. 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 Verbalizes that she is aware it will work out and she will get through it but in the moment it is hard for her to control her impulse. Reports that school is a big trigger for her anxiety and mood. Struggles with adjusting to changes. She has good insight into her negative behavior and wants to stop. Talked to her mother about engaging in IOP once school is over. I am fully convinced that I have ADHD. Buspar has helped with anxiety. She is concerned about her impulse control. Discussed trying Intuniv. She gets an MRI and has an appointment in September for follow up with her surgeon. Will also have a follow up with her neurologist in September. They had discussed a plan to work on weaning her off Keppra due to side effects associated with the medication. She gets done with this semester at the beginning of August. Really looking forward to the school year ending. Will have to take summer classes. Plan is to graduate in March. Taking Buspar morning and night and tolerating that well. Has noticed some improvement in her anxiety. Discussed increasing dose and taking it in the morning and afternoon to help her more during the waking hours. Interval Progress: Slightly improved PATIENT DATA: Generalized Anxiety Disorder Scale (SOO-7) 05/24/2024 06/03/2024 08/03/2024 SOO - 7 SCORES Score 21 21 21 (0-4) minimal anxiety, (5-9) mild anxiety, (10-14) moderate anxiety, (15-21) severe anxiety Patient Health Questionnaire (PHQ-9) 06/03/2024 07/07/2024 08/03/2024 PHQ-9 Score 20 22 25 (0-4) minimal depression, (5-9) mild depression, (10-14) moderate depression, (15-19) moderately severe depression, (20-27) severe depression PAST MEDICAL HISTORY Diagnosis Date Anxiety and depression Bipolar 2 disorder (HCC) Brain tumor (HCC) Chlamydia 02/17/2024 Depression Family history of seizure disorder Hiatal hernia History of heavy periods 2015 Low back strain 10/2015 [facility] Obesity (BMI 30-39.9) 10/23/2022 OCD (obsessive compulsive disorder) PMH - PAST MEDICAL HISTORY OF 2006 normal color vision Seizures (HCC) Trichomoniasis 10/2023 PAST SURGICAL HISTORY Procedure Laterality Date BRAIN SURGERY HX 10/25/2022 EGD 08/28/2020 Hiatal hernia, Variable villous abnormality with associated epithelial lymphocytosis, Gastric oxyntic-type mucosa with no pathologic diagnostic abnormality KNEE SURGERY HX Right 2020 ACL repair KNEE SURGERY HX Right Scar tissue removal PAST SURGICAL HISTORY OF Left ACL repair ALLERGIES No Known Allergies Current Outpatient Medications on File Prior to Visit Medication Sig lamoTRIgine (LAMICTAL) 100 mg tablet Take 1 tablet by mouth two times a day. desvenlafaxine ER (PRISTIQ) 100 mg 24 hr tablet Take 1 tablet by mouth daily with breakfast. Take with 50 mg dose. desvenlafaxine ER (PRISTIQ) 50 mg 24 hr tablet Take 1 tablet by mouth once daily. Take with 100 mg dose. busPIRone (BUSPAR) 10 mg tablet Take 1 tablet by mouth two times a day. dicyclomine (BENTYL) 10 mg capsule TAKE 1 CAPSULE BY MOUTH BEFORE DINNER. M (more content not included)... [facility] 08-04-2024 History of Presen t illness Narrative Images from the original note were not included. FOLLOW UP - PSYCHIATRIC PROGRESS NOTE PATIENT: Fabian Menjivar DATE: August 04, 2024 Visit Type: Virtual Visit utilizing two-way audio and video for at least a portion of the visit. Consent for virtual visit obtained verbally. Confidentiality limitations with virtual visits reviewed with the patient and guardian, if present, who have accepted the risk verbally prior to proceeding with encounter. I have communicated my name and active licensure. The patient's identity and physical location were verified at the time of this visit. Either the patient or their legal automobile sales representative has been informed of the risks and benefits of -- and alternatives to -- treatment through a remote evaluation and consents to proceed with the evaluation remotely. All information is from Patient report except when noted. This evaluation is NOT intended for forensic, disability or child custody purposes. CC: Presenting today for follow up regarding psychiatric medication management. HPI: Treatment Plan from Last Visit on 07/07/2024: TREATMENT PLAN: Discontinue Rexulti due to Akathisia side effect. Increase Pristiq to a total dose of 150 mg XR and take with breakfast every morning to help with anxiety symptoms. Start Buspar 10 mg twice daily to address anxiety symptoms. Reach out to [facility] and engage in trauma focused IOP. Follow up in 4 weeks. Today Fabian shares that I had a really bad day yesterday. She got irritable towards her father. She reports that little things get to her. 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 Verbalizes that she is aware it will work out and she will get through it but in the moment it is hard for her to control her impulse. Reports that school is a big trigger for her anxiety and mood. Struggles with adjusting to changes. She has good insight into her negative behavior and wants to stop. Talked to her mother about engaging in IOP once school is over. I am fully convinced that I have ADHD. Buspar has helped with anxiety. She is concerned about her impulse control. Discussed trying Intuniv. She gets an MRI and has an appointment in September for follow up with her surgeon. Will also have a follow up with her neurologist in September. They had discussed a plan to work on weaning her off Keppra due to side effects associated with the medication. She gets done with this semester at the beginning of August. Really looking forward to the school year ending. Will have to take summer classes. Plan is to graduate in March. Taking Buspar morning and night and tolerating that well. Has noticed some improvement in her anxiety. Discussed increasing dose and taking it in the morning and afternoon to help her more during the waking hours. Interval Progress: Slightly improved PATIENT DATA: Generalized Anxiety Disorder Scale (SOO-7) 05/24/2024 06/03/2024 08/03/2024 SOO - 7 SCORES Score 21 21 21 (0-4) minimal anxiety, (5-9) mild anxiety, (10-14) moderate anxiety, (15-21) severe anxiety Patient Health Questionnaire (PHQ-9) 06/03/2024 07/07/2024 08/03/2024 PHQ-9 Score 20 22 25 (0-4) minimal depression, (5-9) mild depression, (10-14) moderate depression, (15-19) moderately severe depression, (20-27) severe depression PAST MEDICAL HISTORY Diagnosis Date Anxiety and depression Bipolar 2 disorder (HCC) Brain tumor (HCC) Chlamydia 02/17/2024 Depression Family history of seizure disorder Hiatal hernia History of heavy periods 2015 Low back strain 10/2015 [facility] Obesity (BMI 30-39.9) 10/23/2022 OCD (obsessive compulsive disorder) PMH - PAST MEDICAL HISTORY OF 2006 normal color vision Seizures (HCC) Trichomoniasis 10/2023 PAST SURGICAL HISTORY Procedure Laterality Date BRAIN SURGERY HX 10/25/2022 EGD 08/28/2020 Hiatal hernia, Variable villous abnormality with associated epithelial lymphocytosis, Gastric oxyntic-type mucosa with no pathologic diagnostic abnormality KNEE SURGERY HX Right 2020 ACL repair KNEE SURGERY HX Right Scar tissue removal PAST SURGICAL HISTORY OF Left ACL repair ALLERGIES No Known Allergies Current Outpatient Medications on File Prior to Visit Medication Sig lamoTRIgine (LAMICTAL) 100 mg tablet Take 1 tablet by mouth two times a day. desvenlafaxine ER (PRISTIQ) 100 mg 24 hr tablet Take 1 tablet by mouth daily with breakfast. Take with 50 mg dose. desvenlafaxine ER (PRISTIQ) 50 mg 24 hr tablet Take 1 tablet by mouth once daily. Take with 100 mg dose. busPIRone (BUSPAR) 10 mg tablet Take 1 tablet by mouth two times a day. dicyclomine (BENTYL) 10 mg capsule TAKE 1 CAPSULE BY MOUTH BEFORE DINNER. MAY REPEAT AT BEDTIME NEEDED. triamcinolone (KENALOG IN ORABASE) 0.1 % paste Apply to the apthous ulcer TID for 5 days clonazePAM orally disintegrating (KLONOPIN WAFER) 0.5 mg disintegrating tablet Take 1 tablet by mouth as needed (As needed for auras) for up to 30 days. Do not take more than 2 tablets in [address] (PROTONIX) 40 mg tablet Take 1 tablet by mouth once daily. Drospirenone-Ethinyl Estradiol (LORYNA, 28,) 3-0.02 mg per tablet Take 1 tablet by mouth once daily. levETIRAcetam (KEPPRA) 500 mg tablet Take 1 tablet by mouth two times a day. midazolam (NAYZILAM) 5 mg/spray (0.1 mL) nasal spray Use 1 spray in one nostril as needed for seizures lasting > 5 minutes or >=3 seizures in 8 hours. May repeat dose in alternate nostril after 10 minutes based on response and tolerability. folic acid 1 mg tablet Take 1 tablet by mouth once daily. No current facility-administered medications on file prior to visit. ROS: See HPI PFSH: See HPI VITAL SIGNS: There were no vitals filed for this visit. Last 3 Encounter BP Readings: Date: BP: 04/29/2024 114/70 02/16/2024 118/74 02/16/2024 122/70 MENTAL STATUS EXAMINATION: Appearance: Well dressed, well groomed Behavior: Behaves appropriately during the encounter Social relatedness: Withdrawn Speech/Language: The patient demonstrates appropriate tone, prosody, shereen, phonetics, and syntax Mood: sad and worried Affect: Full and appropriate to topic Orientation: Person, Place, Time and Situation Associations: Intact and linear Hallucinations: None Delusions: None Suicidal Ideation: No suicidal ideation, intent or plan. Homicidal Ideation: No homicidal ideation, intent or plan. Insight: Appropriate Judgment: Appropriate DATA REVIEWED: Psychiatric scales, Electronic medical record, Labs DIAGNOSIS: Severe episode of recurrent major depressive disorder, without psychotic features (hcc) (primary encounter diagnosis) Borderline personality disorder (hcc) Mixed obsessional thoughts and acts Encounter for long-term (current) use of medications Trauma and stressor-related disorder Psychosocial stressors Impulse control disorder GAF: -60-51 Moderate symptoms or moderate difficulty in social, occupational or school functioning. TREATMENT PLAN: Start Intuniv 1 mg at bedtime to address impulsivity and mood dysregulation. Increase Buspar to 15 mg twice daily to manage anxiety symptoms. Take it in the morning and afternoon. Continue Pristiq 150 mg in the morning to manage mood and anxiety symptoms. Engage in DBT IOP when you are done with classes this semester. Follow up in 4 weeks. MEDICATION CHANGES: Prescriptions given See above Risks and benefits of the medication, including any black box warnings, were discussed with the patient. Patient is aware to reach out with any questions, concerns, or worsening of symptoms prior to the next appointment. Patient educated on risks of substance use in combination with medications and advised that any substance use along with medications may alter their effectiveness. Follow Up: See Treatment Plan Medical Decision Making: Problems: Moderate: 1+ chronic illnesses with change and 2+ stable chronic illnesses Data: Unique source(s) for external note(s) reviewed: 3+ Unique test result(s) reviewed: 3+ Independent interpretation of test from other physician/QHCP Risk: Moderate: Moderate risk from testing/treatment and Drug management Medical Decision Making Level: 4 - Moderate ADD ON PSYCHOTHERAPY CODE : No SIGNATURE: Kang Buenrostro APRN.CNP PATIENT NAME: Fabian Menjivar DATE: August 04, 2024 TIME: 8:27 AM documented in this encounter [facility] 07-27-2024 Telephone encounter Note Sent patient a mychart response. Grisel Tomlin RN [facility] 07-27-2024 Miscellaneous Notes Sent patient a mychart response. Grisel Tomlin RN documented in this encounter [facility] 07-26-2024 Telephone encounter Note Spoke with Dad requesting OV with Dr. Magana 09/28/2024 at 1330 with MRI prior. Will call to change MRI appointment and r/s OV. Grisel Tomlin RN [facility] 07-26-2024 Miscellaneous Notes Spoke with Dad requesting OV with Dr. Magana 09/28/2024 at 1330 with MRI prior. Will call to change MRI appointment and r/s OV. Grisel Tomlin RN Left voicemail for dad to call office. 09/28 or 09/29 available. Grisel Tomlin RN General call : Full name of person calling: Etienne Menjivar Relationship to patient: kilo Phone # : [phone] (home) Reason for call: asking for 1st week of September appointment instead, can she do mri and Dr Escobar appointment then??? Patient of Dr. magana documented in this encounter [facility] 07-26-2024 Telephone encounter Note Left voicemail for dad to call office. 09/28 or 09/29 available. Grisel Tomlin RN [facility] 07-26-2024 Telephone encounter Note General call : Full name of person calling: Etienne Menjivar Relationship to patient: kilo Phone # : [phone] (home) Reason for call: asking for 1st week of September appointment instead, can she do mri and Dr Escobar appointment then??? Patient of Dr. magana [facility] 07-21-2024 Telephone encounter Note The following approved medication requests have been transmitted electronically. Requested Prescriptions Signed Prescriptions Disp Refills lamoTRIgine (LAMICTAL) 100 mg tablet 180 tablet 3 Sig: Take 1 tablet by mouth two times a day. Authorizing Provider: IFTIKHAR CAVANAUGH APRN.CNP [facility] 07-21-2024 Miscellaneous Notes The following approved medication requests have been transmitted electronically. Requested Prescriptions Signed Prescriptions Disp Refills lamoTRIgine (LAMICTAL) 100 mg tablet 180 tablet 3 Sig: Take 1 tablet by mouth two times a day. Authorizing Provider: IFTIKHAR CAVANAUGH APRN.CNP Prescription Refill:NEW PHARMACY REQUEST; PLEASE RE-APPROVE. Requested by: patient Please E-Scribe Caller Contact Number: [facility] Number: [phone] Generic/ brand: 30 or 90 day supply requested: 90 Last appointment: 04/14/24 Next Appointment: none Patient of Dr. Lucas Menjivar [id number] [facility] [id number] documented in this encounter [facility] 07-20-2024 Telephone encounter Note Spoke with pt's dad agreed to MRI and OV on 10/12/[address] Magana . Message sent to schedule OV. Spoke with radiology department and scheduled MRI FOR 10/12/24 at 1220pm. Grisel Tomlin RN [facility] 07-20-2024 Miscellaneous Notes Spoke with pt's dad agreed to MRI and OV on 10/12/[address] Magana . Message sent to schedule OV. Spoke with radiology department and scheduled MRI FOR 10/12/24 at 1220pm. Grisel Tomlin RN Left voicemail for patient to CB MRI and appointment needs to be scheduled after 09/16/2024. Grisel Tomlin RN documented in this encounter [facility] 07-20-2024 Telephone encounter Note Left voicemail for patient to CB MRI and appointment needs to be scheduled after 09/16/2024. Grisel Tomlin RN [facility] 07-20-2024 Telephone encounter Note Prescription Refill:NEW PHARMACY REQUEST; PLEASE RE-APPROVE. Requested by: patient Please E-Scribe Caller Contact Number: [facility] Number: [phone] Generic/ brand: 30 or 90 day supply requested: 90 Last appointment: 04/14/24 Next Appointment: none Patient of Dr. Lucas Menjivar [phone] [facility] [address] [facility] 07-07-2024 Instructions Kang Buenrostro, 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 - 07/07/2024 9:00 AM EDT TREATMENT PLAN: Discontinue Rexulti due to Akathisia side effect. Increase Pristiq to a total dose of 150 mg XR and take with breakfast every morning to help with anxiety symptoms. Start Buspar 10 mg twice daily to address anxiety symptoms. Reach out to [facility] and engage in trauma focused IOP. Follow up in 4 weeks. For those experiencing a suicidal crisis: --call the National Suicide Prevention Lifeline at 988 (979-839-2870) --text the Crisis Text Line (text HOME to 471273) --call 911 and let them know you are having a mental health crisis or go to your nearest Emergency Room for stabilization. --You can also call [facility] at [phone]. -- You may call the department appointment line at [phone] to schedule your appointment. -- Please call my nurse at [phone] or send me a message in [employer] with any questions or concerns between appointments. documented in this encounter [facility] 07-07-2024 History of Presen t illness Narrative Images from the original note were not included. FOLLOW UP - PSYCHIATRIC PROGRESS NOTE PATIENT: Fabian Menjivar DATE: July 07, 2024 Visit Type: Virtual Visit utilizing two-way audio and video for at least a portion of the visit. Consent for virtual visit obtained verbally. Confidentiality limitations with virtual visits reviewed with the patient and guardian, if present, who have accepted the risk verbally prior to proceeding with encounter. I have communicated my name and active licensure. The patient's identity and physical location were verified at the time of this visit. Either the patient or their legal automobile sales representative has been informed of the risks and benefits of -- and alternatives to -- treatment through a remote evaluation and consents to proceed with the evaluation remotely. All information is from Patient report except when noted. This evaluation is NOT intended for forensic, disability or child custody purposes. CC: Presenting today for follow up regarding psychiatric medication management. HPI: Treatment Plan from Last Visit on 06/04/2024: TREATMENT PLAN: Discontinue Abilify due to lack of benefit and akathisia side effect. Start Rexulti to address mood dysregulation and negative intrusive thoughts. Provided a link to sign up for the savings card. Aware that we will have to complete a prior authorization for the medication. If this medication is too expensive, we will try Latuda instead. Continue Pristiq at the same dose to address anxiety symptoms. Referral placed for patient to engage in [facility]'s trauma focused IOP. Continue individual psychotherapy after completing the IOP program. Follow up in 4 weeks. It is important to note that patient reached out via My chart on 06/24 to share that she was experiencing restlessness with the Rexulti. She was recommended to cut the tablet in half and try that to see if it is more tolerable but if she is not able to cut the tablet, we discussed discontinuing the medication and discussing alternatives at this appointment. Today Fabian shares that she could not tolerate the half tablet of Rexulti. Stopped it 4 days ago. Berkley that the side effects were worse than with Abilify. Shares that she constantly thinks about all the things that she should be doing. Makes unrealistic task list for herself and then talks to herself negatively when she is not able to accomplish it. Shares that she has a hard time relaxing. Has to clean a lot otherwise I doesn't like myself. Verbalizes this as irrational but difficulty managing it. Shares that she has noticed she was vomiting in the morning. Has also been gagging at times when she feel nervous. Reports only these as the physical manifestations of her anxiety. Has seen her PCP and was diagnosed with GERD. She has stopped drinking alcohol. Thinks that she has felt better mood [place]. Concerned more about her anxiety. More irritability towards others. Shares that she is drowsy during the day. Feels fatigued as well. She oversleeps sometimes. Interval Progress: Slightly worse PATIENT DATA: Generalized Anxiety Disorder Scale (SOO-7) 04/29/2024 05/24/2024 06/03/2024 SOO - 7 SCORES Score 21 21 21 (0-4) minimal anxiety, (5-9) mild anxiety, (10-14) moderate anxiety, (15-21) severe anxiety Patient Health Questionnaire (PHQ-9) 05/24/2024 06/03/2024 07/07/2024 PHQ-9 Score 22 20 22 (0-4) minimal depression, (5-9) mild depression, (10-14) moderate depression, (15-19) moderately severe depression, (20-27) severe depression PAST MEDICAL HISTORY Diagnosis Date Anxiety and depression Bipolar 2 disorder (HCC) Brain tumor (HCC) Chlamydia 02/17/2024 Depression Family history of seizure disorder Hiatal hernia History of heavy periods 2014 Low back strain 10/2015 [facility]/ PT Obesity (BMI 30-39.9) 10/23/2022 OCD (obsessive compulsive disorder) PMH - PAST MEDICAL HISTORY OF 2006 normal color vision Seizures (HCC) Trichomoniasis 10/2023 PAST SURGICAL HISTORY Procedure Laterality Date BRAIN SURGERY HX 10/25/2022 EGD 08/28/2020 Hiatal hernia, Variable villous abnormality with associated epithelial lymphocytosis, Gastric oxyntic-type mucosa with no pathologic diagnostic abnormality KNEE SURGERY HX Right 2020 ACL repair KNEE SURGERY HX Right Scar tissue removal PAST SURGICAL HISTORY OF Left ACL repair ALLERGIES No Known Allergies Current Outpatient Medications on File Prior to Visit Medication Sig dicyclomine (BENTYL) 10 mg capsule TAKE 1 CAPSULE BY MOUTH BEFORE DINNER. MAY REPEAT AT BEDTIME NEEDED. triamcinolone (KENALOG IN ORABASE) 0.1 % paste Apply to the apthous ulcer TID for 5 days clonazePAM orally disintegrating (KLONOPIN WAFER) 0.5 mg disintegrating tablet Take 1 tablet by mouth as needed (As needed for [place]) for up to 30 days. Do not take more than 2 tablets in 24 hours. brexpiprazole (REXULTI) 1 mg tablet Take 1 tablet by mouth once daily. desvenlafaxine ER (PRISTIQ) 100 mg 24 hr tablet Take 1 tablet by mouth daily with breakfast. pantoprazole DR (PROTONIX) 40 mg tablet Take 1 tablet by mouth once daily. Drospirenone-Ethinyl Estradiol (LORYNA, 28,) 3-0.02 mg per tablet Take 1 tablet by mouth once daily. levETIRAcetam (KEPPRA) 500 mg tablet Take 1 tablet by mouth two times a day. lamoTRIgine (LAMICTAL) 100 mg tablet Take 1 tablet by mouth two times a day. midazolam (NAYZILAM) 5 mg/spray (0.1 mL) nasal spray Use 1 spray in one nostril as needed for seizures lasting > 5 minutes or >=3 seizures in 8 hours. May repeat dose in alternate nostril after 10 minutes based on response and tolerability. folic acid 1 mg tablet Take 1 tablet by mouth once daily. No current facility-administered medications on file prior to visit. ROS: See HPI PFSH: See HPI VITAL SIGNS: There were no vitals filed for this visit. Last 3 Encounter BP Readings: Date: BP: 04/29/2024 114/70 02/16/2024 118/74 02/16/2024 122/70 MENTAL STATUS EXAMINATION: Appearance: Casually dressed and groomed Behavior: Behaves appropriately during the encounter Social relatedness: Euthymic Speech/Language: The patient demonstrates appropriate tone, prosody, shereen, phonetics, and syntax Mood: sad and concerned Affect: Full and appropriate to topic Orientation: Person, Place, Time and Situation Associations: Intact and linear Hallucinations: None Delusions: None Suicidal Ideation: No suicidal ideation, intent or plan. Homicidal Ideation: No homicidal ideation, intent or plan. Insight: Appropriate Judgment: Appropriate DATA REVIEWED: Psychiatric scales, Electronic medical record, Labs DIAGNOSIS: Severe episode of recurrent major depressive disorder, without psychotic features (hcc) (primary encounter diagnosis) Encounter for long-term (current) use of medications Medication side effect, initial encounter Drug induced akathisia Mixed obsessional thoughts and acts Borderline personality disorder (hcc) Trauma and stressor-related disorder GAF: -60-51 Moderate symptoms or moderate difficulty in social, occupational or school functioning. TREATMENT PLAN: Discontinue Rexulti due to Akathisia side effect. Increase Pristiq to a total dose of 150 mg XR and take with breakfast every morning to help with anxiety symptoms. Start Buspar 10 mg twice daily to address anxiety symptoms. Reach out to [facility] and engage in trauma focused IOP. Follow up in 4 weeks. MEDICATION CHANGES: Prescriptions given See above. Risks and benefits of the medication, including any black box warnings, were discussed with the patient. Patient is aware to reach out with any questions, concerns, or worsening of symptoms prior to the next appointment. Patient educated on risks of substance use in combination with medications and advised that any substance use along with medications may alter their effectiveness. Follow Up: See Treatment Plan Medical Decision Making: Problems: Moderate: 1+ chronic illnesses with change and 2+ stable chronic illnesses Data: Unique source(s) for external note(s) reviewed: 3+ Unique test result(s) reviewed: 3+ Independent interpretation of test from other physician/QHCP Risk: Moderate: Moderate risk from testing/treatment and Drug management Medical Decision Making Level: 4 - Moderate ADD ON PSYCHOTHERAPY CODE : No SIGNATURE: Kang Buenrostro APRN.CNP PATIENT NAME: Fabian Menjivar DATE: July 07, 2024 TIME: 8:33 AM documented in this encounter [facility] 07-07-2024 Note HNO ID: [id number] Author: KANG BUENROSTRO APRN.CNP Service: ? Author Type: Nurse Practitioner Type: Progress Notes Filed: 07/07/2024 09:00 Note Text: FOLLOW UP - PSYCHIATRIC PROGRESS NOTE PATIENT: Fabian Menjivar DATE: July 07, 2024 Visit Type: Virtual Visit utilizing two-way audio and video for at least a portion of the visit. Consent for virtual visit obtained verbally. Confidentiality limitations with virtual visits reviewed with the patient and guardian, if present, who have accepted the risk verbally prior to proceeding with encounter. I have communicated my name and active licensure. The patient's identity and physical location were verified at the time of this visit. Either the patient or their legal automobile sales representative has been informed of the risks and benefits of -- and alternatives to -- treatment through a remote evaluation and consents to proceed with the evaluation remotely. All information is from Patient report except when noted. This evaluation is NOT intended for forensic, disability or child custody purposes. CC: Presenting today for follow up regarding psychiatric medication management. HPI: Treatment Plan from Last Visit on 06/04/2024: TREATMENT PLAN: Discontinue Abilify due to lack of benefit and akathisia side effect. Start Rexulti to address mood dysregulation and negative intrusive thoughts. Provided a link to sign up for the savings card. Aware that we will have to complete a prior authorization for the medication. If this medication is too expensive, we will try Latuda instead. Continue Pristiq at the same dose to address anxiety symptoms. Referral placed for patient to engage in [facility]'s trauma focused IOP. Continue individual psychotherapy after completing the IOP program. Follow up in 4 weeks. It is important to note that patient reached out via My chart on 06/24 to share that she was experiencing restlessness with the Rexulti. She was recommended to cut the tablet in half and try that to see if it is more tolerable but if she is not able to cut the tablet, we discussed discontinuing the medication and discussing alternatives at this appointment. Today Fabian shares that she could not tolerate the half tablet of Rexulti. Stopped it 4 days ago. Berkley that the side effects were worse than with Abilify. Shares that she constantly thinks about all the things that she should be doing. Makes unrealistic task list for herself and then talks to herself negatively when she is not able to accomplish it. Shares that she has a hard time relaxing. Has to clean a lot otherwise I doesn't like myself. Verbalizes this as irrational but difficulty managing it. Shares that she has noticed she was vomiting in the morning. Has also been gagging at times when she feel nervous. Reports only these as the physical manifestations of her anxiety. Has seen her PCP and was diagnosed with GERD. She has stopped drinking alcohol. Thinks that she has felt better mood [place]. Concerned more about her anxiety. More irritability towards others. Shares that she is drowsy during the day. Feels fatigued as well. She oversleeps sometimes. Interval Progress: Slightly worse PATIENT DATA: Generalized Anxiety Disorder Scale (SOO-7) 04/29/2024 05/24/2024 06/03/2024 SOO - 7 SCORES Score 21 21 21 (0-4) minimal anxiety, (5-9) mild anxiety, (10-14) moderate anxiety, (15-21) severe anxiety Patient Health Questionnaire (PHQ-9) 05/24/2024 06/03/2024 07/07/2024 PHQ-9 Score 22 20 22 (0-4) minimal depression, (5-9) mild depression, (10-14) moderate depression, (15-19) moderately severe depression, (20-27) severe depression PAST MEDICAL HISTORY Diagnosis Date Anxiety and depression Bipolar 2 disorder (HCC) Brain tumor (HCC) Chlamydia 02/17/2024 Depression Family history of seizure disorder Hiatal hernia History of heavy periods 2015 Low back strain 10/2015 [facility]/ PT Obesity (BMI 30-39.9) 10/23/2022 OCD (obsessive compulsive disorder) PMH - PAST MEDICAL HISTORY OF 2006 normal color vision Seizures (HCC) Trichomoniasis 10/2023 PAST SURGICAL HISTORY Procedure Laterality Date BRAIN SURGERY HX 10/25/2022 EGD 08/28/2020 Hiatal hernia, Variable villous abnormality with associated epithelial lymphocytosis, Gastric oxyntic-type mucosa with no pathologic diagnostic abnormality KNEE SURGERY HX Right 2020 ACL repair KNEE SURGERY HX Right Scar tissue removal PAST SURGICAL HISTORY OF Left ACL repair ALLERGIES No Known Allergies Current Outpatient Medications on File Prior to Visit Medication Sig dicyclomine (BENTYL) 10 mg capsule TAKE 1 CAPSULE BY MOUTH BEFORE DINNER. MAY REPEAT AT BEDTIME NEEDED. triamcinolone (KENALOG IN ORABASE) 0.1 % paste Apply to the apthous ulcer TID for 5 days clonazePAM orally disintegrating (KLONOPIN WAFER) 0.5 mg disintegrating tablet Take 1 tablet by mouth as needed (As neede (more content not included)... [facility] 06-12-2024 Telephone encounter Note The following approved medication requests have been transmitted electronically. Requested Prescriptions Signed Prescriptions Disp Refills dicyclomine (BENTYL) 10 mg capsule 90 capsule 3 Sig: TAKE 1 CAPSULE BY MOUTH BEFORE DINNER. MAY REPEAT AT BEDTIME NEEDED. Authorizing Provider: TAMELA EDMONDSON triamcinolone (KENALOG IN ORABASE) 0.1 % paste 5 g 1 Sig: Apply to the apthous ulcer TID for 5 days Authorizing Provider: TAMELA EDMONDSON PA-C [facility] 06-12-2024 Miscellaneous Notes The following approved medication requests have been transmitted electronically. Requested Prescriptions Signed Prescriptions Disp Refills dicyclomine (BENTYL) 10 mg capsule 90 capsule 3 Sig: TAKE 1 CAPSULE BY MOUTH BEFORE DINNER. MAY REPEAT AT BEDTIME NEEDED. Authorizing Provider: TAMELA EDMONDSON triamcinolone (KENALOG IN ORABASE) 0.1 % paste 5 g 1 Sig: Apply to the apthous ulcer TID for 5 days Authorizing Provider: TAMELA EDMONDSON PA-C Message left for pt to establish with adult med. Last [facility]: greater than one year ago Verify RX Benefits Completed Last medication refill date: 04/02/2024 +1 refill and Bentyl 04/02/2024 x 90 days ( pt needs Rx to go to a different pharmacy) Requesting 5 g supply Retail pharmacy updated: Completed Patient aware RX will be sent to pharmacy. No need to notify patient. Health Maintenance due: Meningococcal B Vaccine(1 of 2 - Standard) Never done Depression Screening Never done Pneumococcal Vaccine(1 of 2 - PCV) due on 2020 DTaP,Tdap,Td Vaccine(7 - Td or Tdap) due on 12/17/2023 Influenza Vaccine(1) due on 12/28/2023 Covid-19 Vaccine(2023- season) due on 12/28/2023 Jen Greene LPN documented in this encounter [facility] 06-11-2024 Telephone encounter Note The following approved medication requests have been transmitted electronically. Requested Prescriptions Signed Prescriptions Disp Refills clonazePAM orally disintegrating (KLONOPIN WAFER) 0.5 mg disintegrating tablet 10 tablet 0 Sig: Take 1 tablet by mouth as needed (As needed for [place]) for up to 30 days. Do not take more than 2 tablets in 24 hours. Authorizing Provider: IFTIKHAR CAVANAUGH APRN.VENEER MATCHER [facility] 06-11-2024 Miscellaneous Notes The following approved medication requests have been transmitted electronically. Requested Prescriptions Signed Prescriptions Disp Refills clonazePAM orally disintegrating (KLONOPIN WAFER) 0.5 mg disintegrating tablet 10 tablet 0 Sig: Take 1 tablet by mouth as needed (As needed for [place]) for up to 30 days. Do not take more than 2 tablets in 24 hours. Authorizing Provider: IFTIKHAR CAVANAUGH APRN.VENEER MATCHER Prescription Refill: Requested by: patient Please E-Scribe Caller Contact Number: [facility] Number: [phone] Generic/ brand: 30 or 90 day supply requested: 90 Last appointment: 04/14/24 Next Appointment: none Patient of Dr. Lucas Menjivar [id number] [facility] [address] documented in this encounter [facility] 06-11-2024 Telephone encounter Note Prescription Refill: Requested by: patient Please E-Scribe Caller Contact Number: [facility] Number: [phone] Generic/ brand: 30 or 90 day supply requested: 90 Last appointment: 04/14/24 Next Appointment: none Patient of Dr. Lucas Menjivar [phone] [facility] [address] [facility] 06-11-2024 Telephone encounter Note Message left for pt to establish with adult med. Last [facility]: greater than one year ago Verify RX Benefits Completed Last medication refill date: 04/02/2024 +1 refill and Bentyl 04/02/2024 x 90 days ( pt needs Rx to go to a different pharmacy) Requesting 5 g supply Retail pharmacy updated: Completed Patient aware RX will be sent to pharmacy. No need to notify patient. Health Maintenance due: Meningococcal B Vaccine(1 of 2 - Standard) Never done Depression Screening Never done Pneumococcal Vaccine(1 of 2 - PCV) due on 2020 DTaP,Tdap,Td Vaccine(7 - Td or Tdap) due on 12/17/2023 Influenza Vaccine(1) due on 12/28/2023 Covid-19 Vaccine(2023- season) due on 12/28/2023 Jen Greene LPN [facility] 06-07-2024 Telephone encounter Note Noted. Thank you. [facility] 06-07-2024 Miscellaneous Notes Noted. Thank you. Rexulti has been approved for patient. Deanna Ybarra LPN documented in this encounter [facility] 06-07-2024 Telephone encounter Note Rexulti has been approved for patient. Deanna Ybarra LPN [facility] 06-04-2024 Instructions Kang Buenrostro APRN.ROSA - 06/04/2024 9:38 AM EST TREATMENT PLAN: Discontinue Abilify due to lack of benefit and akathisia side effect. Start Rexulti to address mood dysregulation and negative intrusive thoughts. Provided a link to sign up for the savings card. Aware that we will have to complete a prior authorization for the medication. If this medication is too expensive, we will try Latuda instead. Continue Pristiq at the same dose to address anxiety symptoms. Referral placed for patient to engage in [facility]'s trauma focused IOP. Continue individual psychotherapy after completing the IOP program. Follow up in 4 weeks. For those experiencing a suicidal crisis: --call the National Suicide Prevention Lifeline at 767 (743-321-3906) --text the Crisis Text Line (text HOME to 997444) --call 861 and let them know you are having a mental health crisis or go to your nearest Emergency Room for stabilization. --You can also call [facility] at [phone]. -- You may call the department appointment line at [phone] to schedule your appointment. -- Please call my nurse at [phone] or send me a message in [employer] with any questions or concerns between appointments. documented in this encounter [facility] 06-04-2024 History of Presen t illness Narrative Images from the original note were not included. FOLLOW UP - PSYCHIATRIC PROGRESS NOTE PATIENT: Fabian Menjivar DATE: June 04, 2024 Visit Type: Virtual Visit utilizing two-way audio and video for at least a portion of the visit. Consent for virtual visit obtained verbally. Confidentiality limitations with virtual visits reviewed with the patient and guardian, if present, who have accepted the risk verbally prior to proceeding with encounter. I have communicated my name and active licensure. The patient's identity and physical location were verified at the time of this visit. Either the patient or their legal automobile sales representative has been informed of the risks and benefits of -- and alternatives to -- treatment through a remote evaluation and consents to proceed with the evaluation remotely. All information is from Patient report except when noted. This evaluation is NOT intended for forensic, disability or child custody purposes. CC: Presenting today for follow up regarding psychiatric medication management. HPI: Treatment Plan from Last Visit on 04/23/2024: TREATMENT PLAN: Increase Pristiq to 100 mg address anxiety and and OCD symptoms. Continue to take it in the morning. Start Abilify 2 mg once daily to help with mood dysregulation and borderline personality traits. Start individual psychotherapy. Follow up in 4 to 6 weeks. Today Fabian shares that I am not feeling better. Shares that School makes me feel insane. Continues to be very hard on herself and if something goes wrong, she gets more anxious. Has been struggling to relax in between classes. Feels that she has been feeling more restless. Has to be doing something to keep herself busy. Is noticing that she is bouncing her leg more. Shares that his has been happening since she started Abilify. No improvement in mood dysregulation and intrusive thoughts since starting Abilify. About 3 weeks ago, she started to drink more on the weekends. She shares that she gets really mean towards others. She will drink 5 or 6 on Friday. Does not like how she feels when she is alone after drinking. Has a hard time stopping. Shares that she drinks to be part of her friend group. Does not like to be around drunk people if she is not drinking. Discussed how she seeks validation from others due to her decreased sense of self-worth and past trauma experience. Verbalizes understanding. 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 Is open to engaging in [facility] trauma focused IOP due to their flexible hours. Referral was placed. Has tolerated the increase in Pristiq and has noticed it helping her symptoms of anxiety and OCD. Interval Progress: Slightly worse PATIENT DATA: Generalized Anxiety Disorder Scale (SOO-7) 04/29/2024 05/24/2024 06/03/2024 SOO - 7 SCORES Score 21 21 21 (0-4) minimal anxiety, (5-9) mild anxiety, (10-14) moderate anxiety, (15-21) severe anxiety Patient Health Questionnaire (PHQ-9) 04/29/2024 05/24/2024 06/03/2024 PHQ-9 Score 22 22 20 (0-4) minimal depression, (5-9) mild depression, (10-14) moderate depression, (15-19) moderately severe depression, (20-27) severe depression PAST MEDICAL HISTORY Diagnosis Date Anxiety and depression Bipolar 2 disorder (HCC) Brain tumor (HCC) Chlamydia 02/17/2024 Depression Family history of seizure disorder Hiatal hernia History of heavy periods 2015 Low back strain 10/2015 [facility]/ PT Obesity (BMI 30-39.9) 10/23/2022 OCD (obsessive compulsive disorder) PMH - PAST MEDICAL HISTORY OF 2006 normal color vision Seizures (HCC) Trichomoniasis 10/2023 PAST SURGICAL HISTORY Procedure Laterality Date BRAIN SURGERY HX 10/25/2022 EGD 08/28/2020 Hiatal hernia, Variable villous abnormality with associated epithelial lymphocytosis, Gastric oxyntic-type mucosa with no pathologic diagnostic abnormality KNEE SURGERY HX Right 2020 ACL repair KNEE SURGERY HX Right Scar tissue removal PAST SURGICAL HISTORY OF Left ACL repair ALLERGIES No Known Allergies Current Outpatient Medications on File Prior to Visit Medication Sig pantoprazole DR (PROTONIX) 40 mg tablet Take 1 tablet by mouth once daily. Drospirenone-Ethinyl Estradiol (LORYNA, 28,) 3-0.02 mg per tablet Take 1 tablet by mouth once daily. desvenlafaxine ER (PRISTIQ) 100 mg 24 hr tablet Take 1 tablet by mouth daily with breakfast. ARIPiprazole (ABILIFY) 2 mg tablet Take 1 tablet by mouth once daily. dicyclomine (BENTYL) 10 mg capsule TAKE 1 CAPSULE BY MOUTH BEFORE DINNER. MAY REPEAT AT BEDTIME NEEDED. triamcinolone (KENALOG IN ORABASE) 0.1 % paste Apply to the apthous ulcer TID for 5 days clonazePAM orally disintegrating (KLONOPIN WAFER) 0.5 mg disintegrating tablet Take 1 tablet by mouth as needed (As needed for auras) for up to 30 days. Do not take more than 2 tablets in 24 hours. levETIRAcetam (KEPPRA) 500 mg tablet Take 1 tablet by mouth two times a day. lamoTRIgine (LAMICTAL) 100 mg tablet Take 1 tablet by mouth two times a day. midazolam (NAYZILAM) 5 mg/spray (0.1 mL) nasal spray Use 1 spray in one nostril as needed for seizures lasting > 5 minutes or >=3 seizures in 8 hours. May repeat dose in alternate nostril after 10 minutes based on response and tolerability. folic acid 1 mg tablet Take 1 tablet by mouth once daily. No current facility-administered medications on file prior to visit. ROS: See HPI PFSH: See HPI VITAL SIGNS: There were no vitals filed for this visit. Last 3 Encounter BP Readings: Date: BP: 04/29/2024 114/70 02/16/2024 118/74 02/16/2024 122/70 MENTAL STATUS EXAMINATION: Appearance: Casually dressed and groomed Behavior: Behaves appropriately during the encounter Social relatedness: sad and anxious Speech/Language: The patient demonstrates appropriate tone, prosody, shereen, phonetics, and syntax Mood: sad and anxious Affect: Full and appropriate to topic, tearful at times Orientation: Person, Place, Time and Situation Associations: Intact and linear Hallucinations: None Delusions: None Suicidal Ideation: No suicidal ideation, intent or plan. Homicidal Ideation: No homicidal ideation, intent or plan. Insight: Appropriate Judgment: Appropriate DATA REVIEWED: Psychiatric scales, Electronic medical record, Labs DIAGNOSIS: Severe episode of recurrent major depressive disorder, without psychotic features (hcc) (primary encounter diagnosis) Medication side effect, initial encounter Drug induced akathisia Borderline personality disorder (hcc) Mixed obsessional thoughts and acts Psychosocial stressors Encounter for long-term (current) use of medications Trauma and stressor-related disorder Alcohol use GAF: -50-41 Serious symptoms or any serious impairment in social, occupational or school functioning. TREATMENT PLAN: Discontinue Abilify due to lack of benefit and akathisia side effect. Start Rexulti to address mood dysregulation and negative intrusive thoughts. Provided a link to sign up for the savings card. Aware that we will have to complete a prior authorization for the medication. If this medication is too expensive, we will try Latuda instead. Continue Pristiq at the same dose to address anxiety symptoms. Referral placed for patient to engage in [facility]'s trauma focused IOP. Continue individual psychotherapy after completing the IOP program. Follow up in 4 weeks. MEDICATION CHANGES: Prescriptions given See above. Risks and benefits of the medication, including any black box warnings, were discussed with the patient. Patient is aware to reach out with any questions, concerns, or worsening of symptoms prior to the next appointment. Patient educated on risks of substance use in combination with medications and advised that any substance use along with medications may alter their effectiveness. Follow Up: See Treatment Plan I spent a total of 50 minutes on the date of the service which included preparing to see the patient, [id number] patient care, completing clinical documentation, and counseling and educating the patient/family/caregiver, ordering medications/labs, communicating with other healthcare providers, and coordination of external care. ADD ON PSYCHOTHERAPY CODE : No SIGNATURE: Kang Buenrostro APRN.CNP PATIENT NAME: Fabian Menjivar DATE: June 04, 2024 TIME: 8:58 AM documented in this encounter [facility] 06-04-2024 Note HNO ID: [id number] Author: KANG BUENROSTRO APRN.CNP Service: ? Author Type: Nurse Practitioner Type: Progress Notes Filed: 06/04/2024 09:38 Note Text: FOLLOW UP - PSYCHIATRIC PROGRESS NOTE PATIENT: Fabian Menjivar DATE: June 04, 2024 Visit Type: Virtual Visit utilizing two-way audio and video for at least a portion of the visit. Consent for virtual visit obtained verbally. Confidentiality limitations with virtual visits reviewed with the patient and guardian, if present, who have accepted the risk verbally prior to proceeding with encounter. I have communicated my name and active licensure. The patient's identity and physical location were verified at the time of this visit. Either the patient or their legal automobile sales representative has been informed of the risks and benefits of -- and alternatives to -- treatment through a remote evaluation and consents to proceed with the evaluation remotely. All information is from Patient report except when noted. This evaluation is NOT intended for forensic, disability or child custody purposes. CC: Presenting today for follow up regarding psychiatric medication management. HPI: Treatment Plan from Last Visit on 04/23/2024: TREATMENT PLAN: Increase Pristiq to 100 mg address anxiety and and OCD symptoms. Continue to take it in the morning. Start Abilify 2 mg once daily to help with mood dysregulation and borderline personality traits. Start individual psychotherapy. Follow up in 4 to 6 weeks. Today Fabian shares that I am not feeling better. Shares that School makes me feel insane. Continues to be very hard on herself and if something goes wrong, she gets more anxious. Has been struggling to relax in between classes. Feels that she has been feeling more restless. Has to be doing something to keep herself busy. Is noticing that she is bouncing her leg more. Shares that his has been happening since she started Abilify. No improvement in mood dysregulation and intrusive thoughts since starting Abilify. About 3 weeks ago, she started to drink more on the weekends. She shares that she gets really mean towards others. She will drink 5 or 6 on Friday. Does not like how she feels when she is alone after drinking. Has a hard time stopping. Shares that she drinks to be part of her friend group. Does not like to be around drunk people if she is not drinking. Discussed how she seeks validation from others due to her decreased sense of self-worth and past trauma experience. Verbalizes understanding. 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 Is open to engaging in [facility] trauma focused IOP due to their flexible hours. Referral was placed. Has tolerated the increase in Pristiq and has noticed it helping her symptoms of anxiety and OCD. Interval Progress: Slightly worse PATIENT DATA: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 Problems Brother Heart Maternal Uncle Enlarged heart other (Anneurism) Maternal Grandmother Heart Maternal Grandfather age 62 [place] No Known Problems Paternal Grandmother No Known Problems Paternal Grandfather Diabetes Other mggfa Cancer Other MGGF Anesthesia Problems No Family History Social History Tobacco Use Smoking status: Never Smokeless tobacco: Never Vaping Use Vaping status: Some Days Substances: Nicotine, Flavoring Devices: Disposable Substance Use Topics Alcohol use: Yes Alcohol/week: 3.0 standard drinks of alcohol Types: 3 Standard drinks or equivalent per week Drug use: Yes Frequency: 2.0 times per week Types: Marijuana Current Outpatient Medications Medication Sig Drospirenone-Ethinyl Estradiol (LORYNA, 28,) 3-0.02 mg per tablet Take 1 tablet by mouth once daily. desvenlafaxine ER (PRISTIQ) 100 mg 24 hr tablet Take 1 tablet by mouth daily with breakfast. ARIPiprazole (ABILIFY) 2 mg tablet Take 1 tablet by mouth once daily. pantoprazole DR (PROTONIX) 40 mg tablet Take 1 tablet by mouth once daily. dicyclomine (BENTYL) 10 mg capsule TAKE 1 CAPSULE BY MOUTH BEFORE DINNER. MAY REPEAT AT BEDTIME NEEDED. triamcinolone (KENALOG IN ORABASE) 0.1 % paste Apply to the apthous ulcer TID for 5 days clonazePAM orally disintegrating (KLONOPIN WAFER) 0.5 mg disintegrating tablet Take 1 tablet by mouth as needed (As needed for auras) for up to 30 days. Do not take more than 2 tablets in 24 hours. levETIRAcetam (KEPPRA) 500 mg tablet Take 1 tablet by mouth two times a day. lamoTRIgine (LAMICTAL) 100 mg tablet Take 1 tablet by mouth two times a day. midazolam (NAYZILAM) 5 mg/spray (0.1 mL) nasal spray Use 1 spray in one nostril as needed for seizures lasting > 5 minutes or >=3 seizures in 8 hours. May repeat dose in alternate nostril after 10 minutes based on response and tolerability. folic acid 1 mg tablet Take 1 tablet by mouth once daily. No current facility-administered medications for this visit. Allergies As of Date: 04/29/2024 (No Known Allergies) Fully Assessed 04/29/2024 REVIEW OF SYSTEMS Bladder: No dysuria, gross hematuria, urinary urgency, or incontinence. + urinary frequncy Expanded ROS: PRINT PRODUCTION COORDINATOR: + vaginal discomfort Allergies and current medication updated:Yes SENSITIVE EXAM: The sensitive examination was discussed with the Patient or Patient's Authorized Collections Professional. As applicable, any other physician, advance practice provider, medical student, or other health professional student that will be observing or involved in the sensitive examination for educational or training purposes was discussed with the Patient or Authorized Collections Professional. The Patient or Authorized Collections Professional has agreed to proceed with the sensitive examination. (Sensitive examination includes inspection and/or palpation of the breasts, pelvis, prostate and anorectal regions). EXAM: BP 114/70 Wt 197 lb (89.4kg) LMP 02/09/2024 GENERAL: pleasant, female in no apparent distress HEENT: Normocephalic, atraumatic, mucus membranes moist, and no lesions CHEST: Normal inspiratory effort PELVIC: external genitalia (more content not included)... [facility] 04-29-2024 History of Presen t illness Narrative Gasket Inspector offered: Patient declines. Fabian Menjivar is a 23 year old female who presents for problem visit for a test of cure. HPI: Fabian presents for a test of cure. She was positive for Chlamydia on 02/16/2024. Reports that she has had urinary frequency and some discomfort to the perineum. Had intercourse yesterday and wondering if she tore. 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 History LMP: 02/09/2024 (Exact Date), Having periods Age at Menarche: Age at First : Age at Menopause: Dog License Officer Supervisor History Comments: Sexual Activity: Yes; Male Contraception: Condom, Pill PAST MEDICAL HISTORY Diagnosis Date Anxiety and depression Bipolar 2 disorder (HCC) Brain tumor (HCC) Chlamydia 02/17/2024 Depression Family history of seizure disorder Hiatal hernia History of heavy periods 2014 Low back strain 10/2015 [facility]/ PT Obesity (BMI 30-39.9) 10/23/2022 OCD (obsessive compulsive disorder) PMH - PAST MEDICAL HISTORY OF 2006 normal color vision Seizures (HCC) Trichomoniasis 10/2023 PAST SURGICAL HISTORY Procedure Laterality Date BRAIN SURGERY HX 10/25/2022 EGD 08/28/2020 Hiatal hernia, Variable villous abnormality with associated epithelial lymphocytosis, Gastric oxyntic-type mucosa with no pathologic diagnostic abnormality KNEE SURGERY HX Right 2020 ACL repair KNEE SURGERY HX Right Scar tissue removal PAST SURGICAL HISTORY OF Left ACL repair FAMILY HISTORY Problem Relation Age of Onset No Known Problems Mother No Known Problems Father No Known Problems Sister No Known Problems Brother Heart Maternal Uncle Enlarged heart other (Anneurism) Maternal Grandmother Heart Maternal Grandfather age 62 [place] No Known Problems Paternal Grandmother No Known Problems Paternal Grandfather Diabetes Other mggfa Cancer Other MGGF Anesthesia Problems No Family History Social History Tobacco Use Smoking status: Never Smokeless tobacco: Never Vaping Use Vaping status: Some Days Substances: Nicotine, Flavoring Devices: Disposable Substance Use Topics Alcohol use: Yes Alcohol/week: 3.0 standard drinks of alcohol Types: 3 Standard drinks or equivalent per week Drug use: Yes Frequency: 2.0 times per week Types: Marijuana Current Outpatient Medications Medication Sig Drospirenone-Ethinyl Estradiol (LORYNA, 28,) 3-0.02 mg per tablet Take 1 tablet by mouth once daily. desvenlafaxine ER (PRISTIQ) 100 mg 24 hr tablet Take 1 tablet by mouth daily with breakfast. ARIPiprazole (ABILIFY) 2 mg tablet Take 1 tablet by mouth once daily. pantoprazole DR (PROTONIX) 40 mg tablet Take 1 tablet by mouth once daily. dicyclomine (BENTYL) 10 mg capsule TAKE 1 CAPSULE BY MOUTH BEFORE DINNER. MAY REPEAT AT BEDTIME NEEDED. triamcinolone (KENALOG IN ORABASE) 0.1 % paste Apply to the apthous ulcer TID for 5 days clonazePAM orally disintegrating (KLONOPIN WAFER) 0.5 mg disintegrating tablet Take 1 tablet by mouth as needed (As needed for auras) for up to 30 days. Do not take more than 2 tablets in 24 hours. levETIRAcetam (KEPPRA) 500 mg tablet Take 1 tablet by mouth two times a day. lamoTRIgine (LAMICTAL) 100 mg tablet Take 1 tablet by mouth two times a day. midazolam (NAYZILAM) 5 mg/spray (0.1 mL) nasal spray Use 1 spray in one nostril as needed for seizures lasting > 5 minutes or >=3 seizures in 8 hours. May repeat dose in alternate nostril after 10 minutes based on response and tolerability. folic acid 1 mg tablet Take 1 tablet by mouth once daily. No current facility-administered medications for this visit. Allergies As of Date: 04/29/2024 (No Known Allergies) Fully Assessed 04/29/2024 REVIEW OF SYSTEMS Bladder: No dysuria, gross hematuria, urinary urgency, or incontinence. + urinary frequncy Expanded ROS: PRINT PRODUCTION COORDINATOR: + vaginal discomfort Allergies and current medication updated:Yes SENSITIVE EXAM: The sensitive examination was discussed with the Patient or Patient's Authorized Collections Professional. As applicable, any other physician, advance practice provider, medical student, or other health professional student that will be observing or involved in the sensitive examination for educational or training purposes was discussed with the Patient or Authorized Collections Professional. The Patient or Authorized Collections Professional has agreed to proceed with the sensitive examination. (Sensitive examination includes inspection and/or palpation of the breasts, pelvis, prostate and anorectal regions). EXAM: BP 114/70 Wt 197 lb (89.4kg) LMP 02/09/2024 GENERAL: pleasant, female in no apparent distress HEENT: Normocephalic, atraumatic, mucus membranes moist, and no lesions CHEST: Normal inspiratory effort PELVIC: external genitalia normal, normal Bartholin's glands, urethra, Kamaili's glands, no cervical lesions, good vaginal support, physiologic discharge present, normal appearing perineal body and perianal region + tiny laceration noted to below left introitus, no bleeding BIMANUAL: uterus normal size, shape and consistency, no adnexal masses, and non-tender NEURO: alert and oriented x3,exam grossly non-focal EXTREMITIES: normal ASSESSMENT AND PLAN: 1. Screen for STD (sexually transmitted disease) - ICD9: V74.5, ICD10: Z11.3 (primary diagnosis) - GONORRHEA/CHLAMYDIA NAAT 2. Vaginal irritation - ICD9: 623.9, ICD10: N89.8 - Reviewed tiny laceration noted - keep area clean and dry - GONORRHEA/CHLAMYDIA NAAT - GEORGIANA/TRICHOMONAS NAAT - BACTERIAL VAGINOSIS NAAT - URINE CULTURE - Women's health probiotic encouraged 3. Urinary frequency - ICD9: 788.41, ICD10: R35.0 - Urine culture ordered Eligio Diez APRN.CNP Medical Decision Making: Problems: Low: Acute, uncomplicated illness or injury Data: Unique test(s) ordered: 3+ Risk: Minimal: Minimal risk from testing/treatment Medical Decision Making Level: 3 - Low documented in this encounter [facility] 04-26-2024 Telephone encounter Note Last OV 02/16/24. Requested Prescriptions Pending Prescriptions Disp Refills Drospirenone-Ethinyl Estradiol (LORYNA, 28,) 3-0.02 mg per tablet 90 tablet 3 Sig: Take 1 tablet by mouth once daily. Winter Jha RN [facility] 04-26-2024 Miscellaneous Notes Last OV 02/16/24. Requested Prescriptions Pending Prescriptions Disp Refills Drospirenone-Ethinyl Estradiol (LORYNA, 28,) 3-0.02 mg per tablet 90 tablet 3 Sig: Take 1 tablet by mouth once daily. Winter Jha RN documented in this encounter [facility] 04-23-2024 History of Presen t illness Narrative Images from the original note were not included. FOLLOW UP - PSYCHIATRIC PROGRESS NOTE PATIENT: Fabian Menjivar DATE: April 23, 2024 Visit Type: Virtual Visit utilizing two-way audio and video for at least a portion of the visit. Consent for virtual visit obtained verbally. Confidentiality limitations with virtual visits reviewed with the patient and guardian, if present, who have accepted the risk verbally prior to proceeding with encounter. I have communicated my name and active licensure. The patient's identity and physical location were verified at the time of this visit. Either the patient or their legal automobile sales representative has been informed of the risks and benefits of -- and alternatives to -- treatment through a remote evaluation and consents to proceed with the evaluation remotely. All information is from Patient report except when noted. This evaluation is NOT intended for forensic, disability or child custody purposes. CC: Presenting today for follow up regarding psychiatric medication management. HPI: Treatment Plan from Last Visit on 02/19/2024: TREATMENT PLAN: Discontinue Venlafaxine due to the vivid dreams side effects and since you have already stopped taking the medication. Start Pristiq (Desvenlafaxine) instead. Take 25 mg once every morning for 7 days to address anxiety and mood symptoms. After 7 days, start the 50 mg dose. Check [facility]lass to identify a provider who has availability to engage in weekly psychotherapy with the patient. Continue to take your Lamictal and Keppra medication consistently as prescribed by Neurology. Set a reoccurring alarm in the evening to help with this. Today Fabian shares that she had some struggles with getting the Pristiq on time. She has been tolerating the Pristiq 50 mg in the morning. Noticed some vivid dreams concerns but unsure if it is related to Pristiq. The dreams are not bothersome as they are not nightmares. Has taken notes to identify patterns to her mood and stressors. Shares that she yearns for attention and validation. Has identity struggles and can be impulsive at times. Has looked at borderline personality criteria. Concerned about her reaction to situations. Has been concerned that her OCD symptoms have worsened recently. Has OCD related to cleanliness. Will check her door multiple times to make sure that it is closed. Will check her heater to make sure that it is unplugged. Has to have others check for her and seeks reassurance. Occasionally will have intrusive thoughts of not wanting to be here anymore. Interval Progress: Same PATIENT DATA: Generalized Anxiety Disorder Scale (SOO-7) 03/08/2024 04/10/2024 04/16/2024 SOO - 7 SCORES Score 21 21 21 21 (0-4) minimal anxiety, (5-9) mild anxiety, (10-14) moderate anxiety, (15-21) severe anxiety Patient Health Questionnaire (PHQ-9) 03/08/2024 04/10/2024 04/16/2024 PHQ-9 Score 22 22 20 22 (0-4) minimal depression, (5-9) mild depression, (10-14) moderate depression, (15-19) moderately severe depression, (20-27) severe depression PAST MEDICAL HISTORY Diagnosis Date Anxiety and depression Bipolar 2 disorder (HCC) Brain tumor (HCC) Chlamydia 02/17/2024 Depression Family history of seizure disorder Hiatal hernia History of heavy periods 2014 Low back strain 10/2015 [facility]/ PT Obesity (BMI 30-39.9) 10/23/2022 OCD (obsessive compulsive disorder) PMH - PAST MEDICAL HISTORY OF 2006 normal color vision Seizures (HCC) Trichomoniasis 10/2023 PAST SURGICAL HISTORY Procedure Laterality Date BRAIN SURGERY HX 10/25/2022 EGD 08/28/2020 Hiatal hernia, Variable villous abnormality with associated epithelial lymphocytosis, Gastric oxyntic-type mucosa with no pathologic diagnostic abnormality KNEE SURGERY HX Right 2020 ACL repair KNEE SURGERY HX Right Scar tissue removal PAST SURGICAL HISTORY OF Left ACL repair ALLERGIES No Known Allergies Current Outpatient Medications on File Prior to Visit Medication Sig pantoprazole DR (PROTONIX) 40 mg tablet Take 1 tablet by mouth once daily. dicyclomine (BENTYL) 10 mg capsule TAKE 1 CAPSULE BY MOUTH BEFORE DINNER. MAY REPEAT AT BEDTIME NEEDED. triamcinolone (KENALOG IN ORABASE) 0.1 % paste Apply to the apthous ulcer TID for 5 days desvenlafaxine ER (PRISTIQ) 50 mg 24 hr tablet Take 1 tablet by mouth daily with breakfast. clonazePAM orally disintegrating (KLONOPIN WAFER) 0.5 mg disintegrating tablet Take 1 tablet by mouth as needed (As needed for auras) for up to 30 days. Do not take more than 2 tablets in 24 hours. levETIRAcetam (KEPPRA) 500 mg tablet Take 1 tablet by mouth two times a day. lamoTRIgine (LAMICTAL) 100 mg tablet Take 1 tablet by mouth two times a day. midazolam (NAYZILAM) 5 mg/spray (0.1 mL) nasal spray Use 1 spray in one nostril as needed for seizures lasting > 5 minutes or >=3 seizures in 8 hours. May repeat dose in alternate nostril after 10 minutes based on response and tolerability. folic acid 1 mg tablet Take 1 tablet by mouth once daily. desvenlafaxine ER (PRISTIQ) 25 mg 24 hr tablet Take 1 tablet by mouth daily with breakfast for 7 days. Drospirenone-Ethinyl Estradiol (LORYNA, 28,) 3-0.02 mg per tablet Take 1 tablet by mouth once daily. No current facility-administered medications on file prior to visit. ROS: See HPI PFSH: See HPI VITAL SIGNS: There were no vitals filed for this visit. Last 3 Encounter BP Readings: Date: BP: 02/16/2024 118/74 02/16/2024 122/70 01/09/2024 126/69 MENTAL STATUS EXAMINATION: Appearance: Casually dressed and groomed Behavior: Behaves appropriately during the encounter Social relatedness: sad and anxious Speech/Language: The patient demonstrates appropriate tone, prosody, shereen, phonetics, and syntax Mood: sad and anxious Affect: Tearful Orientation: Person, Place, Time and Situation Associations: Intact and linear Hallucinations: None Delusions: None Suicidal Ideation: No suicidal ideation, intent or plan. Homicidal Ideation: No homicidal ideation, intent or plan. Insight: Appropriate Judgment: Appropriate DATA REVIEWED: Psychiatric scales, Electronic medical record, Labs DIAGNOSIS: Mixed obsessional thoughts and acts (primary encounter diagnosis) Generalized anxiety disorder Psychosocial stressors Severe episode of recurrent major depressive disorder, without psychotic features (hcc) Borderline personality disorder (hcc) Encounter for long-term (current) use of medications GAF: -60-51 Moderate symptoms or moderate difficulty in social, occupational or school functioning. TREATMENT PLAN: Increase Pristiq to 100 mg address anxiety and and OCD symptoms. Continue to take it in the morning. Start Abilify 2 mg once daily to help with mood dysregulation and borderline personality traits. Start individual psychotherapy. Follow up in 4 to 6 weeks. MEDICATION CHANGES: Prescriptions given See above Risks and benefits of the medication, including any black box warnings, were discussed with the patient. Patient is aware to reach out with any questions, concerns, or worsening of symptoms prior to the next appointment. Patient educated on risks of substance use in combination with medications and advised that any substance use along with medications may alter their effectiveness. Follow Up: See Treatment Plan Medical Decision Making: Problems: Moderate: 2+ stable chronic illnesses High: Chronic illness with severe change Data: Unique source(s) for external note(s) reviewed: 3+ Unique test result(s) reviewed: 3+ Independent interpretation of test from other physician/QHCP Risk: Moderate: Moderate risk from testing/treatment and Drug management Medical Decision Making Level: 5 - High ADD ON PSYCHOTHERAPY CODE : No SIGNATURE: Kang Buenrostro APRN.CNP PATIENT NAME: Fabian Menjivar DATE: April 23, 2024 TIME: 10:05 AM documented in this encounter [facility] 04-23-2024 Note HNO ID: [id number] Author: KANG BUENROSTRO APRN.CNP Service: ? Author Type: Nurse Practitioner Type: Progress Notes Filed: 05/03/2024 17:42 Note Text: FOLLOW UP - PSYCHIATRIC PROGRESS NOTE PATIENT: Fabian Menjivar DATE: April 23, 2024 Visit Type: Virtual Visit utilizing two-way audio and video for at least a portion of the visit. Consent for virtual visit obtained verbally. Confidentiality limitations with virtual visits reviewed with the patient and guardian, if present, who have accepted the risk verbally prior to proceeding with encounter. I have communicated my name and active licensure. The patient's identity and physical location were verified at the time of this visit. Either the patient or their legal automobile sales representative has been informed of the risks and benefits of -- and alternatives to -- treatment through a remote evaluation and consents to proceed with the evaluation remotely. All information is from Patient report except when noted. This evaluation is NOT intended for forensic, disability or child custody purposes. CC: Presenting today for follow up regarding psychiatric medication management. HPI: Treatment Plan from Last Visit on 02/19/2024: TREATMENT PLAN: Discontinue Venlafaxine due to the vivid dreams side effects and since you have already stopped taking the medication. Start Pristiq (Desvenlafaxine) instead. Take 25 mg once every morning for 7 days to address anxiety and mood symptoms. After 7 days, start the 50 mg dose. Check Sunglass to identify a provider who has availability to engage in weekly psychotherapy with the patient. Continue to take your Lamictal and Keppra medication consistently as prescribed by Neurology. Set a reoccurring alarm in the evening to help with this. Today Fabian shares that she had some struggles with getting the Pristiq on time. She has been tolerating the Pristiq 50 mg in the morning. Noticed some vivid dreams concerns but unsure if it is related to Pristiq. The dreams are not bothersome as they are not nightmares. Has taken notes to identify patterns to her mood and stressors. Shares that she yearns for attention and validation. Has identity struggles and can be impulsive at times. Has looked at borderline personality criteria. Concerned about her reaction to situations. Has been concerned that her OCD symptoms have worsened recently. Has OCD related to cleanliness. Will check her door multiple times to make sure that it is closed. Will check her heater to make sure that it is unplugged. Has to have others check for her and seeks reassurance. Occasionally will have intrusive thoughts of not wanting to be here anymore. Interval Progress: Same PATIENT DATA: Generalized Anxiety Disorder Scale (SOO-7) 03/08/2024 04/10/2024 04/16/2024 SOO - 7 SCORES Score 21 21 21 21 (0-4) minimal anxiety, (5-9) mild anxiety, (10-14) moderate anxiety, (15-21) severe anxiety Patient Health Questionnaire (PHQ-9) 03/08/2024 04/10/2024 04/16/2024 PHQ-9 Score 22 22 20 22 (0-4) minimal depression, (5-9) mild depression, (10-14) moderate depression, (15-19) moderately severe depression, (20-27) severe depression PAST MEDICAL HISTORY Diagnosis Date Anxiety and depression Bipolar 2 disorder (HCC) Brain tumor (HCC) Chlamydia 02/17/2024 Depression Family history of seizure disorder Hiatal hernia History of heavy periods 2015 Low back strain 10/2015 [facility]/ PT Obesity (BMI 30-39.9) 10/23/2022 OCD (obsessive compulsive disorder) PMH - PAST MEDICAL HISTORY OF 2006 normal color vision Seizures (HCC) Trichomoniasis 10/2023 PAST SURGICAL HISTORY Procedure Laterality Date BRAIN SURGERY HX 10/25/2022 EGD 08/28/2020 Hiatal hernia, Variable villous abnormality with associated epithelial lymphocytosis, Gastric oxyntic-type mucosa with no pathologic diagnostic abnormality KNEE SURGERY HX Right 2020 ACL repair KNEE SURGERY HX Right Scar tissue removal PAST SURGICAL HISTORY OF Left ACL repair ALLERGIES No Known Allergies Current Outpatient Medications on File Prior to Visit Medication Sig pantoprazole DR (PROTONIX) 40 mg tablet Take 1 tablet by mouth once daily. dicyclomine (BENTYL) 10 mg capsule TAKE 1 CAPSULE BY MOUTH BEFORE DINNER. MAY REPEAT AT BEDTIME NEEDED. triamcinolone (KENALOG IN ORABASE) 0.1 % paste Apply to the apthous ulcer TID for 5 days desvenlafaxine ER (PRISTIQ) 50 mg 24 hr tablet Take 1 tablet by mouth daily with breakfast. clonazePAM orally disintegrating (KLONOPIN WAFER) 0.5 mg disintegrating tablet Take 1 tablet by mouth as needed (As needed for auras) for up to 30 days. Do not take more than 2 tablets in 24 hours. levETIRAcetam (KEPPRA) 500 mg tablet Take 1 tablet by mouth two times a day. lamoTRIgine (LAMICTAL) 100 mg tablet Take 1 tablet by mouth two times a day. midazolam (NAYZILAM) 5 mg/spray (0.1 mL) nasal spray Use 1 s (more content not included)... [facility] 04-14-2024 History of Presen t illness Narrative RETURN VISIT VIRTUAL VISIT EPILEPSY DEPARTMENT I have communicated my name and active licensure. The patient's identity and physical location were verified at the time of this visit. Either the patient or their legal automobile sales representative has been informed of the risks and benefits of -- and alternatives to -- treatment through a remote evaluation and consents to proceed with the evaluation remotely. 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 She is an established patient of Dr. Zavala and was last seen by myself (Jake Arias PA-C) on 01/09/24. At the last visit, the patient reported 2 seizures since her A[facility] in the setting of medication non-compliance, these were her first reported seizures since surgery. She stated her last seizure occurred on 12/16/23. Her episode was described as: typical aura that she would experience prior to her seizures which consisted of of her feeling abdi vu, dizzy, and nauseous. This is followed by a loss of awareness. She reported that after her seizures, she typically has headaches and nausea which she was also experiencing. In addition to this she reports vomiting which is new and did not occur prior to surgery. She was continued on LEV 500 mg BID and LTG 100 mg BID. Ways to improve compliance were discussed and KLP ODT wafers were prescribed for auras. Patient is currently taking LEV 500 mg BID and LTG 100 mg BID. Notes fatigue as side effect but states it is tolerable. Reports her compliance has greatly improved, takes her medication 7 AM and 01/04:30 PM. There have been no seizures since the last visit. Last seizure 12/16/23. Mood: Stable, denies SI or HI. Sees therapist periodically and has a psychiatrist (next appoint with psychiatrist on 04/23/24). Sleep: Good Working: Works at [employer] ([employer] 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 Reports she got a 3.9 GPA this past semester! Driving: Yes, advised patient no driving 6 months from last seizure (12/16/23). FA: Taking 1 mg daily. She is on combination control and has been taking this for an extended period of time. Notes from [facility] on 01/09/24: Last seen on 04/30/[address] Zavala. At the last visit, the patient was continued on LEV 500 mg BID and LTG 100 mg BID and denied seizures. She had an EEG completed that day which did not show spikes. She was advised to return for an office visit in 6 months to discuss possibly weaning off of LEV. More recently, the patient saw Dr. Magana on 09/17/23. MRI was reviewed with the plan to repeat an MRI in 1 year. No seizures were reported at this time. Patient reports 2 seizures since [facility], last seizure was on 12/25/23. The patient presented to the [facility] on 12/25/23 due to concerns for seizure. The patient reported she woke up this morning and had her typical aura that she would experience prior to her seizures which consisted of of her feeling abdi vu, dizzy, and nauseous. This is followed by a loss of awareness. She reported that after her seizures, she typically has headaches and nausea which she was also experiencing. In addition to this she reports vomiting which is new and did not occur prior to surgery. Triggers include missed dosages of medication. LEV level was <2.0 and LTG level was <0.5. Patient noted to have mild leukocytosis of 13. Other diagnostic work up was unrevealing. She reports she had one other event like this one month ago. She reports this was also in the setting of poor medication compliance. Patient is currently taking LEV 500 mg BID and LTG 100 mg BID. Notes fatigue as side effect, discussed if she takes medication more consistently this may improve. Endorses poor medication compliance. In other health, patient has started Effexor - currently taking 75 mg daily. State she remembers to take this medication daily because it helps her anxiety. 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 Denies SI or HI. 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 Driving: Yes. Advised patient not to drive at this time. Notes from [facility] with Dr. Zavala on 04/30/23: She is here for a follow up visit. 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 EEG (today): No spikes Notes from [facility] with Dr. Wheat on 04/17/22: Fabian Menjivar is a 21 year old right handed woman with a history of celiac disease and anxiety disorder. She is here for evaluation of spells of altered mentation in the setting of brain lesion. Beginning freshman/sophomore year of high school (approximately 16 years old) she began having these episodes. She remembers her first episode in highschool. She was looking in the mirror straightening her hair. She noticed that she looked very sweaty and then pale and had a familiar feeling. She felt frightened and her heart was racing. She didn't know if she lost time. She has continued to have these episode since that time. They can be triggered by familiar sights and smells(such as a childhood perfume she used to have). When they first started she would see a lady, she did not know who she was but it was the same lady every time and she felt familiar. She no longer has this vision. She sees or smells it and then has a feeling like this happened before. She would then get nauseated, sweaty and pale. She feels like her heart is racing. She can have a conversation with someone and seem normal but won't be able to remember anything from this afterwards. She would be scared during episodes and have an impending sense of doom. She has never fallen to ground or shaken with this. She remains conscious but is unaware it is happening. The aura can last up to 10 minutes followed by the loss of awareness lasting up to five minutes. Following the episodes she would get a severe headache. These would occur up to 2-3 times per day, but sometimes only one per day. There would then be a 2-3 week gap between clusters of episodes. She may be able to tell in the morning when events will happen because she feels weird (I feel weird, or like i'm not real. She has been having these since age 16 but only recently sought care because they were causing her difficulty with her college work. They have been at the same frequency the entirety of having them. 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 She was started on levetiracetam 500 mg BID and increased to 750 mg BID but this made her lethargic and she was decreased back to 500 mg BID. She has not had an episode since being started on levetiracetam. 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 It was noted that she was seeing epilepsy soon with [facility] admission and they recommended follow up for discussion of resection vs AED with close monitoring. They felt that the Chiari malformation was asymptomatic at this time and ordered repeat MRI brain. She had no episodes in childhood. She has no other risk factors for seizures except for one cousin with a childhood seizure disorder that has resolved(they report she had petit mal seizures). She did start kindergarten at age 7 as she required 2 years of preschool(not because of learning problems) but has had no milestone concerns. She has not had any episodes since starting Levetiracetam about one month ago, although notes that it may be that she is still just between clusters. On the medication she feels like she is very lethargic(sleeping up to 12 hours a day), zoned out, like she is having blurry vision, and that she is losing weight. Previous evaluations: VEEG ([facility], 07/01/22-07/03/22): EEG Classification: Interictal: Normal Ictal: No EEG Change, , Psychic Aura EEG Seizure, Regional, right temporal Psychic Aura -> Automotor Seizure EEG Seizure, Regional, right temporal Psychic Aura -> Autonomic Seizure -> Automotor Seizure -> Tonic-Clonic Seizure Significance: Abnormal III Impression and Plan: Patient is a 21 year old right-handed female with history of focal epilepsy admitted for diagnostic video EEG evaluation. MRI right mesial temporal lesion (DNET). EEG not previously available. 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 EEG showed no interictal abnormalities. One aura and two clinical seizures were recorded. The aura (1A) consisted of abdi vu feeling and feeling hot without EEG changes. Seizure 2P originated from the right temporal region and clinically was characterized by an aura of abdi vu followed by autonomic symptoms of increased heart rate, feeling hot and sweaty, and tachycardia. She was fidgeting with her phone and toward the end of the seizure appeared to have altered awareness. Seizure 3PG was secondarily generalized. It presented much the same as SZ 2P (stated she saw two ladies during her aura), with a progression to lip smacking, head tonic to the left, and figure of four with left arm extension before tonic-clonic phase.Home anti-seizure medications consisted of levetiracetam 500 mg twice daily which was discontinued during admission. Upon discharge, levetiracetam was restarted at home dosing and lamotrigine 25 mg qhs was added with plans to titrate it up to 100 mg twice daily by 09/05/2022. Patient was discharged home in stable condition. She will follow up with Dr. Zavala following a discussion at [facility]. MRI Brain 09/17/23 ([facility]): IMPRESSION: Postsurgical changes from right anterior temporal lobe resection. No evidence of residual or recurrent tumor. Resolution of previously seen post surgical changes and mass effect seen on previous MRI dated 10/26/2022. Chiari I malformation. No syrinx in the visualized upper cervical spine. MRI Brain 10/26/22 ([facility]): IMPRESSION: Postoperative changes of anterior right temporal lobe resection. There is little extra-axial fluid underlying the craniotomy, minor focal FLAIR hyperintensity underlying the craniotomy and development of of approximately 2 mm of [id number] left midline shift. Similar Chiari I malformation. MRI brain 03/18/22([facility]): 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 Vitals: Physical examination: Deferred d/t VV. Impression: S/p right anteromesial resection with removal of a tumor on 10/25/2022 No seizures Mood is better No spikes on 6 m EEG 01/09/24 update: Patient reports two seizures since the [facility] both in the setting of poor medication non-compliance. First seizure following surgery was ~1 month ago (October 2023) and most recent seizure was on 12/25/23, medication levels were not detectable with most recent episode. Patient states she has been taking her ASMs currently. She is on LTG 100 mg BID and LEV 500 mg BID. Endorses fatigue as side effect, discussed this may improve if she takes her medications more consistently. Discussed importance of medication compliance, risk of in epilepsy, and SUDEP. Pre-surgical seizures: aura of abdi vu, dizzy, and nausea followed by ELISA. Post-ictal would have headache and nausea. Post-surgical seizures: aura of abdi vu, dizzy, and nausea followed by ELISA. Post-ictally she now reports more severe headache, nausea, and now endorses vomiting which did not occur prior. 04/14/24 update: Patient has remained seizure free since 12/16/23. She reports her medication compliance has greatly improved since our [facility]. She rarely misses a dose of medication, does endorse occasionally missing a dose when running late in the morning. Discussed having a pill container on her duarte chain with 1-2 doses of medicine in it to limit this from happening. She is currently on LEV 500 mg BID and LTG 100 mg BID, endorses fatigue as side effect but overall states it is tolerable. Plan: - Continue LEV 500 mg BID and LTG 100 mg BID, no refills needed - KLP ODT 0.5 mg wafers prescribed to be utilized PRN for auras. - Re-emphasize importance of medication compliance. - Seizure precautions discussed, no driving. Last seizure 12/16/23. - Continue FA daily - Repeat brain MRI in August of 2024, order placed by [facility]. - Follow up at end of May 2024 or start of June (to be cleared for driving if seizure free, will order labs at this time), sooner if needed. I spent a total of 20 minutes on the date of the service which included preparing to see the patient, [id number] patient care, completing clinical documentation, obtaining and/or reviewing separately obtained history, counseling and educating the patient/family/caregiver, and ordering medications, tests, or procedures. Jake Arias PA-C April 14, 2024 documented in this encounter [facility] 04-14-2024 Note HNO ID: [id number] Author: JAKE ARIAS PA-C Service: ? Author Type: Physician Ac[employer]ical [employer] Drill Press Operator Type: Progress Notes Filed: 04/14/2024 09:04 Note Text: RETURN VISIT VIRTUAL VISIT EPILEPSY DEPARTMENT I have communicated my name and active licensure. The patient's identity and physical location were verified at the time of this visit. Either the patient or their legal automobile sales representative has been informed of the risks and benefits of -- and alternatives to -- treatment through a remote evaluation and consents to proceed with the evaluation remotely. 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 She is an established patient of Dr. Zavala and was last seen by myself (Jake Arias PA-C) on 01/09/24. At the last visit, the patient reported 2 seizures since her ALEYDA in the setting of medication non-compliance, these were her first reported seizures since surgery. She stated her last seizure occurred on 12/16/23. Her episode was described as: typical aura that she would experience prior to her seizures which consisted of of her feeling abdi vu, dizzy, and nauseous. This is followed by a loss of awareness. She reported that after her seizures, she typically has headaches and nausea which she was also experiencing. In addition to this she reports vomiting which is new and did not occur prior to surgery. She was continued on LEV 500 mg BID and LTG 100 mg BID. Ways to improve compliance were discussed and KLP ODT wafers were prescribed for auras. Patient is currently taking LEV 500 mg BID and LTG 100 mg BID. Notes fatigue as side effect but states it is tolerable. Reports her compliance has greatly improved, takes her medication 7 AM and 01/04:30 PM. There have been no seizures since the last visit. Last seizure 12/16/23. Mood: Stable, denies SI or HI. Sees therapist periodically and has a psychiatrist (next appoint with psychiatrist on 04/23/24). Sleep: Good Working: Works at [employer] 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 Reports she got a 3.9 GPA this past semester! Driving: Yes, advised patient no driving 6 months from last seizure (12/16/23). FA: Taking 1 mg daily. She is on combination control and has been taking this for an extended period of time. Notes from [facility] on 01/09/24: Last seen on 04/30/[address] Zavala. At the last visit, the patient was continued on LEV 500 mg BID and LTG 100 mg BID and denied seizures. She had an EEG completed that day which did not show spikes. She was advised to return for an office visit in 6 months to discuss possibly weaning off of LEV. More recently, the patient saw Dr. Magana on 09/17/23. MRI was reviewed with the plan to repeat an MRI in 1 year. No seizures were reported at this time. Patient reports 2 seizures since [facility], last seizure was on 12/25/23. The patient presented to the [facility] on 12/25/23 due to concerns for seizure. The patient reported she woke up this morning and had her typical aura that she would experience prior to her seizures which consisted of of her feeling abdi vu, dizzy, and nauseous. This is followed by a loss of awareness. She reported that after her seizures, she typically has headaches and nausea which she was also experiencing. In addition to this she reports vomiting which is new and did not occur prior to surgery. Triggers include missed dosages of medication. LEV level was <2.0 and LTG level was <0.5. Patient noted to have mild leukocytosis of 13. Other diagnostic work up was unrevealing. She reports she had one other event like this one month ago. She reports this was also in the setting of poor medication compliance. Patient is currently taking LEV 500 mg BID and LTG 100 mg BID. Notes fatigue as side effect, discussed if she takes medication more consistently this may improve. Endorses poor medication compliance. In other health, patient has started Effexor - currently taking 75 mg daily. State she remembers to take this medication daily because it helps her anxiety. 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 Denies SI or HI. 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 Driving: Yes. Advised patient not to drive at this time. Notes from [facility] with Dr. Zavala on 04/30/23: She is here for a follow up visit. 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 EEG (today): No spikes Notes from [facility] with Dr. Wheat on 04/17/22: Fabian Menjivar is a 21 year old right handed woman with a history of celiac disease and anxiety disorder. She is here for evaluation of spells of altered (more content not included)... [facility] 04-02-2024 Telephone encounter Note Patient's request for medication is as follows Requested Prescriptions Signed Prescriptions Disp Refills triamcinolone (KENALOG IN ORABASE) 0.1 % paste 5 g 1 Sig: Apply to the apthous ulcer TID for 5 days Authorizing Provider: DIONTE FU MD [facility] 04-02-2024 Telephone encounter Note Patient's request for medication is as follows Requested Prescriptions Signed Prescriptions Disp Refills dicyclomine (BENTYL) 10 mg capsule 90 capsule 3 Sig: TAKE 1 CAPSULE BY MOUTH BEFORE DINNER. MAY REPEAT AT BEDTIME NEEDED. Authorizing Provider: DIONTE FU MD [facility] 04-02-2024 Miscellaneous Notes Patient's request for medication is as follows Requested Prescriptions Signed Prescriptions Disp Refills dicyclomine (BENTYL) 10 mg capsule 90 capsule 3 Sig: TAKE 1 CAPSULE BY MOUTH BEFORE DINNER. MAY REPEAT AT BEDTIME NEEDED. Authorizing Provider: DIONTE FU MD Saw S on 02/16/24, advised to establish with primary care, no appt scheduled. [employer] message sent inquiring if patient would like help getting appointment with adult primary care Verify RX Benefits Completed Last medication refill date: 08/26/22 Requesting 90 day supply Retail pharmacy updated: Completed Patient aware RX will be sent to pharmacy. No need to notify patient. Health Maintenance due: Meningococcal B Vaccine: Consider Based On Risk(1 of 2 - Patient Seeks Protection) Never done DTaP,Tdap,Td Vaccine(7 - Td or Tdap) due on 12/17/2023 Influenza Vaccine(1) due on 12/28/2023 Covid-19 Vaccine( season) due on 12/28/2023 Rosie Lockett RN Per last office note patient was supposed to get established with adult primary care. Does not look like something was scheduled. [employer] message sent Rosie Lockett RN documented in this encounter [facility] 04-02-2024 Miscellaneous Notes Patient's request for medication is as follows Requested Prescriptions Signed Prescriptions Disp Refills triamcinolone (KENALOG IN ORABASE) 0.1 % paste 5 g 1 Sig: Apply to the apthous ulcer TID for 5 days Authorizing Provider: DIONTE FU MD Saw [facility] on 02/16/24, advised to establish with primary care, no appt scheduled. [employer] message sent inquiring if patient would like help getting appointment with adult primary care Verify RX Benefits Completed Last medication refill date: 02/16/24 Requesting 30 day supply Retail pharmacy updated: Completed Patient aware RX will be sent to pharmacy. No need to notify patient. Health Maintenance due: Meningococcal B Vaccine: Consider Based On Risk(1 of 2 - Patient Seeks Protection) Never done DTaP,Tdap,Td Vaccine(7 - Td or Tdap) due on 12/17/2023 Influenza Vaccine(1) due on 12/28/2023 Covid-19 Vaccine( - 2023- season) due on 12/28/2023 Rosie Lockett RN documented in this encounter [facility] 04-02-2024 Telephone encounter Note Patient's request for medication is as follows Requested Prescriptions Signed Prescriptions Disp Refills pantoprazole DR (PROTONIX) 40 mg tablet 30 tablet 2 Sig: Take 1 tablet by mouth once daily. Authorizing Provider: DIONTE FU MD [facility] 04-02-2024 Miscellaneous Notes Patient's request for medication is as follows Requested Prescriptions Signed Prescriptions Disp Refills pantoprazole DR (PROTONIX) 40 mg tablet 30 tablet 2 Sig: Take 1 tablet by mouth once daily. Authorizing Provider: DIONTE FU MD Saw [facility] on 02/16/24, advised to establish with primary care, no appt scheduled. [employer] message sent inquiring if patient would like help getting appointment with adult primary care See other refill encounter Per last office note patient was supposed to get established with adult primary care. Does not look like something was scheduled. [employer] message sent Rosie Lockett RN documented in this encounter [facility] 04-01-2024 Telephone encounter Note The following approved medication requests have been transmitted electronically. Requested Prescriptions Signed Prescriptions Disp Refills midazolam (NAYZILAM) 5 mg/spray (0.1 mL) nasal spray 2 Each 1 Sig: Use 1 spray in one nostril as needed for seizures lasting > 5 minutes or >=3 seizures in 8 hours. May repeat dose in alternate nostril after 10 minutes based on response and tolerability. Authorizing Provider: IFTIKHAR CAVANAUGH folic acid 1 mg tablet 90 tablet 3 Sig: Take 1 tablet by mouth once daily. Authorizing Provider: ITFIKHAR CAVANAUGH APRN.CNP [facility] 04-01-2024 Miscellaneous Notes The following approved medication requests have been transmitted electronically. Requested Prescriptions Signed Prescriptions Disp Refills midazolam (NAYZILAM) 5 mg/spray (0.1 mL) nasal spray 2 Each 1 Sig: Use 1 spray in one nostril as needed for seizures lasting > 5 minutes or >=3 seizures in 8 hours. May repeat dose in alternate nostril after 10 minutes based on response and tolerability. Authorizing Provider: IFTIKHAR CAVANAUGH folic acid 1 mg tablet 90 tablet 3 Sig: Take 1 tablet by mouth once daily. Authorizing Provider: IFTIKHAR CAVANAUGH APRN.VENEER MATCHER Prescription Refill:NEW PHARMACY REQUEST; PLEASE RE-APPROVE. Requested by: patient Please E-Scribe Caller Contact Number: [facility]acy Name: [facility] Number: [phone] Generic/ brand: 30 or 90 day supply requested: 90 Last appointment: 01/09/24 Next Appointment: 04/14/[address] Zavala documented in this encounter [facility] 04-01-2024 Telephone encounter Note Prescription Refill:NEW PHARMACY REQUEST; PLEASE RE-APPROVE. Requested by: patient Please E-Scribe Caller Contact Number: [facility] Number: [phone] Generic/ brand: 30 or 90 day supply requested: 90 Last appointment: 01/09/24 Next Appointment: 04/14/[address] Zavala [facility] 04-01-2024 Telephone encounter Note The following approved medication requests have been transmitted electronically. Requested Prescriptions Signed Prescriptions Disp Refills clonazePAM orally disintegrating (KLONOPIN WAFER) 0.5 mg disintegrating tablet 10 tablet 0 Sig: Take 1 tablet by mouth as needed (As needed for auras) for up to 30 days. Do not take more than 2 tablets in 24 hours. Authorizing Provider: IFTIKHAR CAVANAUGH levETIRAcetam (KEPPRA) 500 mg tablet 180 tablet 3 Sig: Take 1 tablet by mouth two times a day. Authorizing Provider: IFTIKHAR CAVANAUGH lamoTRIgine (LAMICTAL) 100 mg tablet 180 tablet 3 Sig: Take 1 tablet by mouth two times a day. Authorizing Provider: IFTIKHAR CAVANAUGH APRN.VENEER MATCHER [facility] 04-01-2024 Miscellaneous Notes The following approved medication requests have been transmitted electronically. Requested Prescriptions Signed Prescriptions Disp Refills clonazePAM orally disintegrating (KLONOPIN WAFER) 0.5 mg disintegrating tablet 10 tablet 0 Sig: Take 1 tablet by mouth as needed (As needed for auras) for up to 30 days. Do not take more than 2 tablets in 24 hours. Authorizing Provider: IFTIKHAR CAVANAUGH levETIRAcetam (KEPPRA) 500 mg tablet 180 tablet 3 Sig: Take 1 tablet by mouth two times a day. Authorizing Provider: IFTIKHAR CAVANAUGH lamoTRIgine (LAMICTAL) 100 mg tablet 180 tablet 3 Sig: Take 1 tablet by mouth two times a day. Authorizing Provider: IFTIKHAR CAVANAUGH APRN.VENEER MATCHER Prescription Refill: CONTROLLED SUBSTANCE Requested by: patient Please E-Scribe Caller Contact Number: Pharmacy Name: [facility] Number: [phone] Generic/ brand: Generic 30 or 90 day supply requested: 90 Last appointment: 01/09/24 Next Appointment: 04/24/[address] Zavala documented in this encounter [facility] 04-01-2024 Telephone encounter Note Prescription Refill: CONTROLLED SUBSTANCE Requested by: patient Please E-Scribe Caller Contact Number: Pharmacy Name: [facility] Number: [phone] Generic/ brand: Generic 30 or 90 day supply requested: 90 Last appointment: 01/09/24 Next Appointment: 04/24/[address] Zavala [facility] 04-01-2024 Telephone encounter Note Saw LUÍS on 02/16/24,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 HISTORY OF 2006 normal color vision Seizures (HCC) Trichomoniasis 10/2023 PAST SURGICAL HISTORY Procedure Laterality Date BRAIN SURGERY HX 10/25/2022 EGD 08/28/2020 Hiatal hernia, Variable villous abnormality with associated epithelial lymphocytosis, Gastric oxyntic-type mucosa with no pathologic diagnostic abnormality KNEE SURGERY HX Right 2020 ACL repair KNEE SURGERY HX Right Scar tissue removal PAST SURGICAL HISTORY OF Left ACL repair ALLERGIES No Known Allergies Current Outpatient Medications on File Prior to Visit Medication Sig doxycycline hyclate (VIBRAMYCIN) 100 mg capsule Take 1 capsule (100 mg) by mouth two times a day for 7 days. Drospirenone-Ethinyl Estradiol (LORYNA, 28,) 3-0.02 mg per tablet Take 1 tablet by mouth once daily. triamcinolone (KENALOG IN ORABASE) 0.1 % paste Apply to the apthous ulcer TID for 5 days mupirocin (BACTROBAN) 2 % ointment Apply topically to the left nostril TID for [address] (PROTONIX) 40 mg tablet Take 1 tablet by mouth once daily. folic acid 1 mg tablet Take 1 tablet by mouth once daily. clonazePAM orally disintegrating (KLONOPIN WAFER) 0.5 mg disintegrating tablet Take 1 tablet by mouth as needed (As needed for auras) for up to 30 days. Do not take more than 2 tablets in 24 hours. levETIRAcetam (KEPPRA) 500 mg tablet Take 1 tablet by mouth two times a day. lamoTRIgine (LAMICTAL) 100 mg tablet Take 1 tablet by mouth two times a day. venlafaxine ER (EFFEXOR XR) 75 mg 24 hr capsule Take 1 capsule by mouth once daily. dicyclomine (BENTYL) 10 mg capsule TAKE 1 CAPSULE BY MOUTH BEFORE DINNER. MAY REPEAT AT BEDTIME NEEDED. midazolam (NAYZILAM) 5 mg/spray (0.1 mL) nasal spray Use 1 spray in one nostril as needed for seizures lasting > 5 minutes or >=3 seizures in 8 hours. May repeat dose in alternate nostril after 10 minutes based on response and tolerability. No current facility-administered medications on file prior to visit. ROS: See HPI PFSH: See HPI VITAL SIGNS: There were no vitals filed for this visit. Last 3 Encounter BP Readings: Date: BP: 02/16/2024 118/74 02/16/2024 122/70 01/09/2024 126/69 MENTAL STATUS EXAMINATION: Appearance: Well dressed, well groomed Behavior: Behaves appropriately during the encounter Social relatedness: Sad and Anxious Speech/Language: The patient demonstrates appropriate tone, prosody, shereen, phonetics, and syntax Mood: Sad and Anxious Affect: Full and appropriate to topic, Tearful Orientation: Person, Place, Time and Situation Associations: Intact and linear Hallucinations: None Delusions: None Suicidal Ideation: No suicidal ideation, intent or plan. Homicidal Ideation: No homicidal ideation, intent or plan. Insight: Appropriate Judgment: Appropriate DATA REVIEWED: Psychiatric scales, Electronic medical record, Labs DIAGNOSIS: Bipolar 2 disorder (hcc) (primary encounter diagnosis) Mixed obsessional thoughts and acts Generalized anxiety disorder Psychosocial stressors Medication side effect, initial encounter GAF: -60-51 Moderate symptoms or moderate difficulty in social, occupational or school functioning. TREATMENT PLAN: Discontinue Venlafaxine due to the vivid dreams side effects and since you have already stopped taking the medication. Start Pristiq (Desvenlafaxine) instead. Take 25 mg once every morning for 7 days to address anxiety and mood symptoms. After 7 days, start the 50 mg dose. Check [facility] to identify a provider who has availability to engage in weekly psychotherapy with the patient. Continue to take your Lamictal and Keppra medication consistently as prescribed by Neurology. Set a reoccurring alarm in the evening to help with this. MEDICATION CHANGES: See above. Risks and benefits of the medication, including any black box warnings, were discussed with the patient. Patient is aware to reach out with any questions, concerns, or worsening of symptoms prior to the next appointment. Patient educated on risks of substance use in combination with medications and advised that any substance use along with medications may alter their effectiveness. Follow Up: March 08 as scheduled I spent a total of 50 minutes on the date of the service which included preparing to see the patient, [id number] patient care, completing clinical documentation, and counseling and educating the patient/family/caregiver, ordering medications/labs. ADD ON PSYCHOTHERAPY CODE : No SIGNATURE: Kang Buenrostro APRN.CNP PATIENT NAME: Fabian Menjivar DATE: February 19, 2024 TIME: 8:09 AM documented in this encounter [facility] 02-17-2024 Telephone encounter Note RX resent. Craol Hamilton APRN.CNP [facility] 02-17-2024 Miscellaneous Notes RX resent. Carol Hamilton APRN.CNP Patient notified of results, verbalizes understanding of instructions. Health department form faxed. Patient is back at school now, can you please resend Rx to updated pharmacy? Michelle Lancaster RN Left message to call office. Health department form filled out and in nurse triage to fax once patient is notified. Michelle Lancaster RN +chlamydia- Rx sent documented in this encounter [facility] 02-17-2024 Telephone encounter Note Patient notified of results, verbalizes understanding of instructions. Health department form faxed. Patient is back at school now, can you please resend Rx to updated pharmacy? Michelle Lancaster RN T [facility] 02-17-2024 Telephone encounter Note Left message to call office. Health department form filled out and in nurse triage to fax once patient is notified. Michelle Lancaster RN [facility] 02-17-2024 Telephone encounter Note +chlamydia- Rx sent [facility] 02-16-2024 History of Presen t illness Narrative Fabian Menjivar is a 23-year-old female with several complex problems, including celiac disease, who presents to the office today with gastrointestinal complaints. Patient reports for the last several months she will have reimbursement specialist emesis. Nonbloody. History does not suggest that is bilious. She states she also has lost appetite. She has consistent daily symptoms of nausea with occasional abdominal discomfort that she localizes to the lower quadrants. This is relieved when she has emesis. She states alcohol makes her symptoms much worse. Additionally anxiety makes this worse. She cannot identify any specific food triggers. She denies dysphagia or odynophagia. 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) Focal Seizure With Experiential Sensory Symptoms (Hcc) Depression Obesity (Bmi 30-39.9) 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) Obesity, Class II, Bmi 35-39.9 Midline Shift of Brain Lgsil On Pap Smear of Cervix PAST MEDICAL HISTORY Diagnosis Date Anxiety and depression Bipolar 2 disorder (HCC) Brain tumor (HCC) Chlamydia 02/17/2024 Depression Family history of seizure disorder Hiatal hernia History of heavy periods 2015 Low back strain 10/2015 [facility] Obesity (BMI 30-39.9) 10/23/2022 OCD (obsessive compulsive disorder) PMH - PAST MEDICAL HISTORY OF 2006 normal color vision Seizures (HCC) Trichomoniasis 10/2023 PAST SURGICAL HISTORY Procedure Laterality Date BRAIN SURGERY HX 10/25/2022 EGD 08/28/2020 Hiatal hernia, Variable villous abnormality with associated epithelial lymphocytosis, Gastric oxyntic-type mucosa with no pathologic diagnostic abnormality KNEE SURGERY HX Right 2020 ACL repair KNEE SURGERY HX Right Scar tissue removal PAST SURGICAL HISTORY OF Left ACL repair ALLERGIES No Known Allergies 02/16/24 1058 BP: 118/74 Pulse: 84 Resp: 16 Temp: 36.1 C (97 F) TempSrc: Temporal Weight: 91 kg (200 lb 9.6 oz) GENERAL: alert and active in no apparent distress, nontoxic-appearing HEAD: Normocephalic, atraumatic EYES: No scleral icterus NOSE: Weepy honey crusted lesions in the left nares OROPHARYNX:moist mucous membranes, tonsils without hypertrophy and no exudates present. 1 oral aphthous ulcer is present. NECK: Negative for anterior or posterior cervical adenopathy. No masses are present in the suprasternal notch. No supraclavicular adenopathy is present. CARDIOVASCULAR : Regular Rate and Rhythm without murmurs or clicks, well perfused LUNGS: clear to auscultation, excellent air exchange, easy respirations without grunting/flaring/retracting. ABDOMEN : Abdomen is nondistended. Mild epigastric tenderness. No guarding or rebound. Bowel sounds are intact in all 4 quadrants. MUSCULOSKELETAL: Extremities with FROM and no problems identified. EXTREMITIES: Capillary refill is 1 second. No clubbing, cyanosis, or edema. NEUROLOGICAL : Muscle tone normal and Normal age appropriate gait SKIN : Negative for jaundice. Negative for petechiae or purpura. Normal skin turgor Latest Ref Rng 02/16/2024 GLUCOSE UA (POCT) Negative mg/dL Negative BILIRUBIN UA (POCT) Negative Negative KETONE UA (POCT) Negative mg/dL Negative SPECIFIC GRAVITY UA (POCT) 1.005 - 1.030 1.010 HEMOGLOBIN/BLOOD UA (POCT) Negative Negative PH UA (POCT) 4.5 - 8.0 6.5 PROTEIN UA (POCT) Negative mg/dL Negative UROBILINOGEN UA (POCT) Normal E.U./dL 0.2 NITRITE UA (POCT) Negative Negative LEUKOCYTES UA (POCT) Negative Trace ! COLOR UA (POCT) Yellow CLARITY UA (POCT) Clear Urine hCG (POCT) Negative Negative Core Machine Tender (POCT) Internal QC OK Legend: ! Abnormal ASSESSMENT/PLAN: 1. Gastroesophageal reflux disease, unspecified whether esophagitis present - ICD9: 530.81, ICD10: K21.9 (primary diagnosis) - PANTOPRAZOLE 40 MG TABLET,DELAYED RELEASE 2. Aphthous, ulcer oral - ICD9: 528.2, ICD10: K12.0 - TRIAMCINOLONE ACETONIDE 0.1 % DENTAL PASTE 3. Impetigo - ICD9: 684, ICD10: L01.00 - MUPIROCIN 2 % TOPICAL OINTMENT 4. Nausea and vomiting, unspecified vomiting type - ICD9: 787.01, ICD10: R11.2 - UA DIP,URINE HCG (POC) 5. Generalized abdominal pain - ICD9: 789.07, ICD10: R10.84 - UA DIP, URINE (POC) - US ABD RIGHT UPPER QUADRANT Needs to establish with adult primary care. This has been mentioned to the patient multiple times I spent a total of 35 minutes on the date of the service which included preparing to see the patient, [id number] patient care, completing clinical documentation, obtaining and/or reviewing separately obtained history, performing a medically appropriate examination, counseling and educating the patient/family/caregiver, and ordering medications, tests, or procedures. Follow-up 1 month Dionte Fu MD [facility] Department of Pediatrics, [facility] documented in this encounter [facility] 02-16-2024 Note HNO ID: [id number] Author: DIONTE FU MD Service: ? Author Type: Physician Type: Progress Notes Filed: 02/24/2024 13:34 Note Text: Fabian Menjivar is a 23-year-old female with several complex problems, including celiac disease, who presents to the office today with gastrointestinal complaints. Patient reports for the last several months she will have reimbursement specialist emesis. Nonbloody. History does not suggest that is bilious. She states she also has lost appetite. She has consistent daily symptoms of nausea with occasional abdominal discomfort that she localizes to the lower quadrants. This is relieved when she has emesis. She states alcohol makes her symptoms much worse. Additionally anxiety makes this worse. She cannot identify any specific food triggers. She denies dysphagia or odynophagia. 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) Focal Seizure With Experiential Sensory Symptoms (Hcc) Depression Obesity (Bmi 30-39.9) 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) Obesity, Class II, Bmi 35-39.9 Midline Shift of Brain Lgsil On Pap Smear of Cervix PAST MEDICAL HISTORY Diagnosis Date Anxiety and depression Bipolar 2 disorder (HCC) Brain tumor (HCC) Chlamydia 02/17/2024 Depression Family history of seizure disorder Hiatal hernia History of heavy periods 2015 Low back strain 10/2015 [facility] Obesity (BMI 30-39.9) 10/23/2022 OCD (obsessive compulsive disorder) PMH - PAST MEDICAL HISTORY OF 2006 normal color vision Seizures (HCC) Trichomoniasis 10/2023 PAST SURGICAL HISTORY Procedure Laterality Date BRAIN SURGERY HX 10/25/2022 EGD 08/28/2020 Hiatal hernia, Variable villous abnormality with associated epithelial lymphocytosis, Gastric oxyntic-type mucosa with no pathologic diagnostic abnormality KNEE SURGERY HX Right 2020 ACL repair KNEE SURGERY HX Right Scar tissue removal PAST SURGICAL HISTORY OF Left ACL repair ALLERGIES No Known Allergies 02/16/24 1058 BP: 118/74 Pulse: 84 Resp: 16 Temp: 36.1 ?C (97 ?F) TempSrc: Temporal Weight: 91 kg (200 lb 9.6 oz) GENERAL: alert and active in no apparent distress, nontoxic-appearing HEAD: Normocephalic, atraumatic EYES: No scleral icterus NOSE: Weepy honey crusted lesions in the left nares OROPHARYNX:moist mucous membranes, tonsils without hypertrophy and no exudates present. 1 oral aphthous ulcer is present. NECK: Negative for anterior or posterior cervical adenopathy. No masses are present in the suprasternal notch. No supraclavicular adenopathy is present. CARDIOVASCULAR : Regular Rate and Rhythm without murmurs or clicks, well perfused LUNGS: clear to auscultation, excellent air exchange, easy respirations without grunting/flaring/retracting. ABDOMEN : Abdomen is nondistended. Mild epigastric tenderness. No guarding or rebound. Bowel sounds are intact in all 4 quadrants. MUSCULOSKELETAL: Extremities with FROM and no problems identified. EXTREMITIES: Capillary refill is 1 second. No clubbing, cyanosis, or edema. NEUROLOGICAL : Muscle tone normal and Normal age appropriate gait SKIN : Negative for jaundice. Negative for petechiae or purpura. Normal skin turgor Latest Ref Rng 02/16/2024 GLUCOSE UA (POCT) Negative mg/dL Negative BILIRUBIN UA (POCT) Negative Negative KETONE UA (POCT) Negative mg/dL Negative SPECIFIC GRAVITY UA (POCT) 1.005 - 1.030 1.010 HEMOGLOBIN/BLOOD UA (POCT) Negative Negative PH UA (POCT) 4.5 - 8.0 6.5 PROTEIN UA (POCT) Negative mg/dL Negative UROBILINOGEN UA (POCT) Normal E.U./dL 0.2 NITRITE UA (POCT) Negative Negative LEUKOCYTES UA (POCT) Negative Trace ! COLOR UA (POCT) Yellow CLARITY UA (POCT) Clear Urine hCG (POCT) Negative Negative Core Machine Tender (POCT) Internal QC OK Legend: ! Abnormal ASSESSMENT/PLAN: 1. Gastroesophageal reflux disease, unspecified whether esophagitis present - ICD9: 530.81, ICD10: K21.9 (primary diagnosis) - PANTOPRAZOLE 40 MG TABLET,DELAYED RELEASE 2. Aphthous, ulcer oral - ICD9: 528.2, ICD10: K12.0 - TRIAMCINOLONE ACETONIDE 0.1 % DENTAL PASTE 3. Impetigo - ICD9: 684, ICD10: L01.00 - MUPIROCIN 2 % TOPICAL OINTMENT 4. Nausea and vomiting, unspecified vomiting type - ICD9: 787.01, ICD10: R11.2 - UA DIP,URINE HCG (POC) 5. Generalized abdominal pain (more content not included)... [facility] 02-16-2024 Instructions Eligio Diez APRN.ROSA - 02/16/2024 10:24 AM EDT Lubricants and moisturizers list The [id number] vaginal moisturizer and lubricant products can be confusing to sort through, especially since there are no FDA requirements for how they can be marketed or labeled. In general there are 3 categories of products: Vaginal lubricants should be used at the time of intercourse to decrease friction. Long acting vaginal moisturizers are used at least twice weekly to increase vaginal (internal) lubrication and elasticity. Vulvar moisturizers are for external use for vulvar comfort and do not impact vaginal lubrication or elasticity. Vaseline petroleum products and oils (baby oil, coconut, olive oil,) can make condoms break, so should not be used with condoms. In many women, these can cause infections. However, if you have sore spots on the vulva (outer lips), then petroleum jelly can sometimes be helpful. All of the products listed below are over the counter. Many can be bought in any drugstore or online. Also, many [employer] stores do carry high-quality lubricant products. VAGINAL LUBRICANTS: (For use during sexual activity) Lubricants should be applied to the outside and opening of the vagina at the time of sexual activity. The lubricant can also be applied to the penis or a device. Silicone based lubricants should not be used on silicone vibrators or toys. Both silicone and water based lubricants are condom compatible. If you use a water based lubricant, it is also important to choose a lubricant with low osmolality since lubricants with high osmolality increase the chance of irritation and infection. Osmolality information can be hard to find. All of the following lubricants have a low osmolality, are pH balanced, and are preservative free. WATER BASED LUBRICANTS Good Clean Love (made of organic ingredients) Pulse H2Oh! Sylk Natural System Marla PreSeed (Does not impact sperm motility and can be used if trying to conceive, also good for those with multiple sensitivities, though may not work as well) SILICONE BASED LUBRICANTS Uber lube Replens Silky Smooth Pulse Aloe-ahh Wet [place] MARLA Premium Personal Lubricant PINK Silicone Lubricant SLIQUID Organics silk Pulse is a hands free personal lubricant warming dispenser and is sold with water or silicone based lubricant pods that some women prefer for travel. LONG ACTING VAGINAL MOISTURIZERS: (For regular use inside vagina to maintain moisture) Long acting vaginal moisturizers should be used at least twice weekly on a regular basis. Many women find they need to use a moisturizer 3-5 times/week. In addition, it is important to not only apply the moisturizer inside the vagina, but also to apply to the vestibule (the external area surrounding the opening of the vagina). Women who are not sexually active often find that the regular use of a long acting vaginal moisturizer makes them feel more comfortable. Sap Project Manager beware: many lubricants are labeled as moisturizers to make them more appealing to consumers (even though they don t function as a true moisturizer). Replens Long Acting Vaginal Moisturizer (Available in all drugstores) HyaloGyn Vaginal Hydrating Gel (hybrid moisturizer, but can function as lubricant too) Revaree (hyaluronic acid) VULVAR MOISTURIZERS: (For external use) Replens Moisture Restore Comfort Gel is to be used externally for dry vulvar skin. Aquaphor can also be applied externally for comfort. [place] Aloe [place]: Many people are allergic to aloe, so keep this in mind with products like this that have aloe in it. Medicine Mama s V magic: Not much medical studies on this, but many patients swear by it, has oil, beeswax and honey in it- best used externally only. From [facility]'s Tobacco Cessation website: Our comprehensive smoking cessation program contains three main modules. These modules include the following: One-on-one weekly 30-minute counseling sessions with a respiratory therapist. Education about the various nicotine replacement therapies and medications and alternative methods used for cessation. Guidance and support; plus, we will contact your physician to obtain any required prescriptions for medications related to cessation. Insurance is accepted for this six-week program. Please check with your provider about whether your plan covers tobacco cessation programs. In the event your insurance provider does not cover your six-week smoking cessation program, we encourage you to contact us at your earliest convenience by calling . One of our friendly team members will be happy to help you with your financial plan. Contact [phone] for more information. [facility] Visit https://[place].quitlogix.org/en-[place] / or call 1-111-AIAR-NOW Oral Contraceptives: The Pill Beginning the Pill Pills come in either a 21 day pack or a 28 day pack. With the 21 day pack you will take one pill for 21 days then no pill for 7 days, during which time you will have what is known as withdrawal bleeding. The 28 day pack allows you to take a pill every day of the cycle with no interruptions. The first 21 pills are the pills with the active ingredients and the last 7 are the nonmedical pills (placebo) or they may contain iron. There will be bleeding during the week you are taking the nonmedical pills. The advantage to the 28 day pack is that you don t have to keep track of when you stopped the pill. There are a group of 28 day pills that contain 24 active pills and only 4 placebo pills. These are formulated to give you a check inspector period. First day of next menstrual period start OR Quick Start (starting the day you get the pill) when reasonably certain not . Use 7 day back up contraception. OR Friday start. Use back up contraception for 7 days. Friday start can result in no period on weekends. Read your information packet that comes with the pills. Pill Benefits The pill is the most popular method of reversible control being used today. Millions of women rely on oral contraceptives as their control method. It is important to have an examination by your physician to determine if the pill is safe for you. There are several advantages associated with the pill: it is 97-98% effective when used correctly; may improve acne; periods are more regular and less painful; there is less iron deficiency anemia in pill users. USP use is associated with a decreased incidence of ovarian and uterine cancer. There is also no evidence that the pill increases the incidence of any cancer. How Oral Contraceptives Work Oral contraceptives come in two varieties. One is the combination pill which contains both estrogen and progesterone. Combination pills are considered 98-99% effective in preventing . This pill comes in either monophasic, which delivers the same amount of estrogen and progesterone throughout the cycle; and triphasic, which try tries to mimic the normal hormone cycle by changing the levels of the hormones in the pills during the month. There is no real advantage to taking the one over the other. The other type of pill only contains progesterone. It is best used for women who can t take estrogen. This type of pill is slightly less effective than the combination pill in preventing . It is VERY important to take the progesterone only pill at the same time every day. Oral contraceptives prevent ovulation (release of an egg from the ovary) by suppressing the pituitary gland s action. The pill does NOT prevent sexually transmitted disease. Obtaining a Prescription It is important to see your doctor before starting oral contraceptives so that you can have a full medical history taken and a physical examination given. Certain medical conditions may make the pill inappropriate for you, therefore it is very important to be honest and as complete as possible with the information you share with your doctor. The types of predisposing factors which would make the pill a poor choice of control would include: History of blood clots Stroke Serious liver disease or impaired liver function Unexplained vaginal bleeding or Cancer of the reproductive system Active gall bladder disease Hypertension Possible Side Effects It can take up to three months for your body to become adjusted to the pill. The more common side effects experienced at this time are: breakthrough spotting or bleeding, which is bleeding at any other time other than when you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 zoroastrian Ethnicity: unknown Coping strategies: smoking weed MENTAL STATUS EXAMINATION: The patient was casually attired. The patient had good eye contact and rapport was easy to establish. The patient appeared to be alert and oriented in all spheres The patient was cooperative with the interview process. The patient denies hallucinations. The patient reports anxiety, irritability, and depression. Affect appeared mood congruent. 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 The patient denies problems with short term memory. Speech was within normal limits with regard to rate, tone and volume. There was no evidence of responding to internal stimuli or delusional thinking. Based on vocabulary and educational/vocational background, the patient's intellectual functioning appeared to be average. Insight appeared to be only adequate and judgment was fair. The patient's motivation for treatment was judged to be good. DIAGNOSTIC IMPRESSION: The patient appears to have longstanding problems with anxiety (social, worry and OCD) and depression with a history of hypomanic episodes prior to using a mood stabilizer. She tends to rely on cannabis and alcohol to cope with her anxiety and these may interfere with the efficacy of her psychotropic medications. She states that she cannot afford to use cannabis and alcohol to the extent that she is currently using them, as they interfere with her ability to budget for groceries. ICD-10 DIAGNOSIS: Bipolar 2 Disorder SOO with features of OCD and social anxiety Cannabis Dependence Alcohol Abuse RECOMMENDATIONS/TREATMENT PLAN: [facility] relax for free self-regulation recordings to use before bed Pt encouraged to reduce her cannabis and alcohol consumption. Pt states that she would like to find healthier, less expensive ways to manage her anxiety. Medication consultation with PCP or psychiatric provider PRN. Psychotherapy with this provider to address pt's presenting problems. RTC 2 weeks or PRN. Pt amenable to plan. Therapist Signature/Title: Tami Pastor Psy.D. [facility] Staff Clinical Health Psychologist documented in this encounter [facility] 01-20-2024 Note HNO ID: [id number] Author: TAMI PASTOR PSYD Service: ? Author Type: Psychologist Type: Progress Notes Filed: 01/20/2024 18:38 Note Text: PSYCHOLOGICAL INTAKE/DIAGNOSTIC INTERVIEW CPT: One hour diagnostic interview examination (intake evaluation) via [employer] PROVIDER: DINORA DATE: January 20, 2024 PATIENT NAME: Fabian Menjivar ([id number]) Patient is a 23 year old Single (never ) female who was seen virtually for today's visit. Provider communicated name/active psychology licensure and patient's name/location were verified. Informed consent related to virtual visits was provided via [employer]. Patient Data Generalized Anxiety Disorder Scale (SOO-7) 04/15/2023 12/28/2023 01/13/2024 SOO - 7 SCORES Score 18 21 21 (0-4) minimal anxiety, (5-9) mild anxiety, (10-14) moderate anxiety, (15-21) severe anxiety Patient Health Questionnaire (PHQ-9) 05/22/2023 12/28/2023 01/13/2024 PHQ-9 Score 7 16 17 (0-4) minimal depression, (5-9) mild depression, (10-14) moderate depression, (15-19) moderately severe depression, (20-27) severe depression PROMIS Global Health 02/03/2023 04/15/2023 12/28/2023 PROMIS Global Health - (T-Scores - the mean of general population = 50. Five points is a clinically meaningful difference.) Physical T-Score 44.9 44.9 44.9 Mental T-Score 33.8 36.3 25.1 Patient was seen for an initial diagnostic evaluation. All information is from patient report except when noted. This evaluation is NOT intended for forensic, disability or child custody purposes. Informed consent was discussed and obtained from the patient. HISTORY OF PRESENT ILLNESS/PROBLEM: Patient is a 23 year old Single (never ) White female who was referred by psychiatry for treatment of anxiety. CHIEF COMPLAINT: Patient reports that she started having seizures/abdi vu in high school. During her jeanne year of college she had a seizure at lacrosse practice and it was discovered that she had a benign brain tumor. Disappointed b/c she couldn't play lacrosse in college due to her knee and brain surgeries. Constantly worried and irritable. Engages in all or nothing thinking. Has had very stressful health problems every summer during college - 3 knee surgeries and 1 brain surgery. Also dwells on negative events, thinking I deserve to be angry - bad things keep happening to me. 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 Onset of problem with depression was during middle school. Always feels like a loser, very hard on myself. Does very well socially - well regarded by others at school - but inwardly suffers from a lot of social anxiety and is very sensitive to anyone's disapproval. Eats one meal/day fast food b/c can't afford groceries. Has gained a lot of weight as a result. Tired of relying on marijuana to relax - too expensive as she spends $150/month for cannabis and $160/month on alcohol. Doesn't have money for groceries since she spends too much on weed and going out. Pt acknowledges problems with: Sleep: can't fall asleep - relies on cannabis every night to fall asleep for the past 6 years. Is willing to try self-regulation recordings Interest: lower - everything seems like a chore - throughout college Guilt: very hard on herself - always feels that she is not doing enough - compares self to others in her major - feels she does not measure up Energy: lower than usual - naps a lot b/c tired - seizure meds may cause drowsiness Concentration: sometimes it's hard to concentrate when worrying Appetite: not hungry early in the day - eats one meal at dinnertime - usually fast food b/c does not buy groceries - has gained weight and is the heaviest she has ever been - Binge eats sometimes but never purges. Lately overeats at [employer] - may have 3 burritos/1 taco at one sitting - eating is a comfort thing Psychomotor activity: very fidgety - feels like she should get up and do something productive Mood: typically stressed, depressed Suicide: denied Rizwana: hypomanic episodes since sophomore year of high school - extremely happy and social during those times, spends money then Phobias: denied Memory: short term is good, mcfp is okay but not great Anxiety: yes - social, performance Obsessions: yes - has a lot of obsessive thoughts about doing homework immediately, cleaning things constantly - very tidy, worries that her roommates' dishes are not washed well so always washes dishes before using them; Lives with 5 other girls - cleans compulsively Compulsions: cleaning Self mutilation: denies Worry: yes - constantly worries about the future and expects bad things to happen - worries about her parents dying - can't relax - if I relax, that means I'm not being productive - occasionally spends a day or 2 rotting (more content not included)... [facility] 01-13-2024 Telephone encounter Note Patient request for medication is as follows: Requested Prescriptions Pending Prescriptions Disp Refills Drospirenone-Ethinyl Estradiol (LORYNA, 28,) 3-0.02 mg per tablet 28 tablet 1 Sig: Take 1 tablet by mouth once daily. Jeanette Rodrigues RN [facility] 01-13-2024 Miscellaneous Notes Patient request for medication is as follows: Requested Prescriptions Pending Prescriptions Disp Refills Drospirenone-Ethinyl Estradiol (LORYNA, 28,) 3-0.02 mg per tablet 28 tablet 1 Sig: Take 1 tablet by mouth once daily. Jeanette Rodrigues RN documented in this encounter [facility] 01-09-2024 Jake Rodriguez PA-C - 01/09/2024 10:33 AM EDT - Continue Lamictal (Lamotrigine) 100 mg twice daily - Continue Keppra (Levetiracetam) 500 mg twice daily - Start Folic acid 2 mg daily - Complete lab work in 2 weeks. Please have labs completed first thing in the morning prior to taking your morning dose of anti-seizure medication or 8 hours after taking your morning dose of anti-seizure medication. - Utilize alarm systems to remember to take medication. - Rescue Klonopin (Clonazepam) prescribed to utilize when an aura occurs. - Seizure precautions. No driving. - Follow up in 3 months, sooner if needed A general rule, please do not perform any activities where it would be unsafe to have a seizure Seizure Precautions If You Have a Seizure Ask friends and family members to learn CPR. Also, tell them to do the following if you have a seizure: Clear the area to prevent injury. Position you on a flat, carpeted surface, if possible. Don t try to restrain you. Don t put anything in your mouth. Turn you onto your side if you start to vomit. Keep track of the date and time the seizure started, how long it lasted, whether or not you lost consciousness, a description of your body movements, what provoked the seizure (if known), and any injuries you suffered. Stay with you until you regain consciousness. Activities Enjoy your normal activities. Most people with epilepsy lead normal lives. Avoid hazardous activities, such as mountain climbing or scuba diving. A seizure under these conditions could lead to a fatal accident. Do not swim alone or participate in other similar activities without others nearby. NO driving or operating heavy machinery for at least six months. It is important for your safety and the safety of others. When to Seek Medical Attention Tell your family members or friends to call 911 right away if you have: Loss of consciousness. Shortness of breath or stopped breathing. Seizure that lasts more than 2-3 minutes. Seizure that is severe (choking, difficulty breathing, bluish color skin) Multiple seizures in a row. Otherwise, have them call your doctor immediately if you have: Seizures that are getting longer and worse. Seizures that are different from those you ve had in the past. Seizures strong enough to cause injury. Please do not climb to high places, such as rooftops, up trees or mountain climbing. When near water, you should be supervised by an adult or person who is aware of risk of seizures, for example during tub baths, swimming, boating or fishing. A helmet should be worn when riding a bike. First Aid for a grand mal seizure: -Remain calm and do not panic, call for assistance if needed. -Lower the person safely to the ground and loosen any tight clothing. -Place the person in a side-lying position so any saliva or vomit will easily drain out of the mouth. Actively seizing people are at a increased risk of choking on their saliva or vomit. Do not put any objects such as a tongue depressor or fingers into the mouth. Protect the persons head from injury while they are on their side. -Time the seizure from start to finish so you know how long it lasted (most grand mal seizures are no more than 1 or 2 minutes long). If the seizure is continuing longer than 5 minutes, call the ambulance at 911 for transportation to the nearest Emergency Room. -After a grand mal seizure, people are very sleepy and tired for several minutes or even a couple of hours. They may also complain of headache, nausea and may vomit. Seizure safety during sleep: Always take anti-epileptic medications as prescribed by your doctor. Objects near the bed may cause injury if someone has a seizure is prone to falling out of bed. Move heavy furniture, floor lamps, night stands and other dangerous objects away from the bed. Mattresses and pillows should be firm and not soft. All stuffed animals, toys and other objects should be removed from the bed. Blankets can be layered but should be thin, down comforters may be too soft. Keep the bed as low to the ground as possible. Some patients with night time seizures may sleep with their mattress on the floor. Others may pad the floor with mats (such as exercise mats used in workout facilities) to pad the floor. During sleep, keep the bedroom door cracked open so someone can hear if you are having a seizure. Never lock the bedroom door. Some people choose to use baby monitors to observe for seizures at night. documented in this encounter [facility] 01-09-2024 History of Presen t illness Narrative RETURN VISIT OFFICE VISIT EPILEPSY DEPARTMENT 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 She is an established patient of Dr. Zavala and was last seen on 04/30/23. At the last visit, the patient was continued on LEV 500 mg BID and LTG 100 mg BID and denied seizures. She had an EEG completed that day which did not show spikes. She was advised to return for an office visit in 6 months to discuss possibly weaning off of LEV. More recently, the patient saw Dr. Mgaana on 09/17/23. MRI was reviewed with the plan to repeat an MRI in 1 year. No seizures were reported at this time. Patient reports 2 seizures since ALEYDA, last seizure was on 12/25/23. The patient presented to the [facility] on 12/25/23 due to concerns for seizure. The patient reported she woke up this morning and had her typical aura that she would experience prior to her seizures which consisted of of her feeling abdi vu, dizzy, and nauseous. This is followed by a loss of awareness. She reported that after her seizures, she typically has headaches and nausea which she was also experiencing. In addition to this she reports vomiting which is new and did not occur prior to surgery. Triggers include missed dosages of medication. LEV level was <2.0 and LTG level was <0.5. Patient noted to have mild leukocytosis of 13. Other diagnostic work up was unrevealing. She reports she had one other event like this one month ago. She reports this was also in the setting of poor medication compliance. Patient is currently taking LEV 500 mg BID and LTG 100 mg BID. Notes fatigue as side effect, discussed if she takes medication more consistently this may improve. Endorses poor medication compliance. In other health, patient has started Effexor - currently taking 75 mg daily. State she remembers to take this medication daily because it helps her anxiety. 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 Denies SI or HI. 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 Driving: Yes. Advised patient not to drive at this time. Notes from [facility] with Dr. Zavala on 04/30/23: She is here for a follow up visit. 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 EEG (today): No spikes Notes from [facility] with Dr. Wheat on 04/17/22: Fabian Menjivar is a 21 year old right handed woman with a history of celiac disease and anxiety disorder. She is here for evaluation of spells of altered mentation in the setting of brain lesion. Beginning freshman/sophomore year of high school (approximately 16 years old) she began having these episodes. She remembers her first episode in highschool. She was looking in the mirror straightening her hair. She noticed that she looked very sweaty and then pale and had a familiar feeling. She felt frightened and her heart was racing. She didn't know if she lost time. She has continued to have these episode since that time. They can be triggered by familiar sights and smells(such as a childhood perfume she used to have). When they first started she would see a lady, she did not know who she was but it was the same lady every time and she felt familiar. She no longer has this vision. She sees or smells it and then has a feeling like this happened before. She would then get nauseated, sweaty and pale. She feels like her heart is racing. She can have a conversation with someone and seem normal but won't be able to remember anything from this afterwards. She would be scared during episodes and have an impending sense of doom. She has never fallen to ground or shaken with this. She remains conscious but is unaware it is happening. The aura can last up to 10 minutes followed by the loss of awareness lasting up to five minutes. Following the episodes she would get a severe headache. These would occur up to 2-3 times per day, but sometimes only one per day. There would then be a 2-3 week gap between clusters of episodes. She may be able to tell in the morning when events will happen because she feels weird (I feel weird, or like i'm not real. She has been having these since age 16 but only recently sought care because they were causing her difficulty with her college work. They have been at the same frequency the entirety of having them. 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 She was started on levetiracetam 500 mg BID and increased to 750 mg BID but this made her lethargic and she was decreased back to 500 mg BID. She has not had an episode since being started on levetiracetam. 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 It was noted that she was seeing epilepsy soon with EMU admission and they recommended follow up for discussion of resection vs AED with close monitoring. They felt that the Chiari malformation was asymptomatic at this time and ordered repeat MRI brain. She had no episodes in childhood. She has no other risk factors for seizures except for one cousin with a childhood seizure disorder that has resolved(they report she had petit mal seizures). She did start kindergarten at age 7 as she required 2 years of preschool(not because of learning problems) but has had no milestone concerns. She has not had any episodes since starting Levetiracetam about one month ago, although notes that it may be that she is still just between clusters. On the medication she feels like she is very lethargic(sleeping up to 12 hours a day), zoned out, like she is having blurry vision, and that she is losing weight. Previous evaluations: VEEG ([facility], 07/01/22-07/03/22): EEG Classification: Interictal: Normal Ictal: No EEG Change, , Psychic Aura EEG Seizure, Regional, right temporal Psychic Aura -> Automotor Seizure EEG Seizure, Regional, right temporal Psychic Aura -> Autonomic Seizure -> Automotor Seizure -> Tonic-Clonic Seizure Significance: Abnormal III Impression and Plan: Patient is a 21 year old right-handed female with history of focal epilepsy admitted for diagnostic video EEG evaluation. MRI right mesial temporal lesion (DNET). EEG not previously available. 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 EEG showed no interictal abnormalities. One aura and two clinical seizures were recorded. The aura (1A) consisted of abdi vu feeling and feeling hot without EEG changes. Seizure 2P originated from the right temporal region and clinically was characterized by an aura of abdi vu followed by autonomic symptoms of increased heart rate, feeling hot and sweaty, and tachycardia. She was fidgeting with her phone and toward the end of the seizure appeared to have altered awareness. Seizure 3PG was secondarily generalized. It presented much the same as SZ 2P (stated she saw two ladies during her aura), with a progression to lip smacking, head tonic to the left, and figure of four with left arm extension before tonic-clonic phase.Home anti-seizure medications consisted of levetiracetam 500 mg twice daily which was discontinued during admission. Upon discharge, levetiracetam was restarted at home dosing and lamotrigine 25 mg qhs was added with plans to titrate it up to 100 mg twice daily by 09/05/2022. Patient was discharged home in stable condition. She will follow up with Dr. Zavala following a discussion at [facility]. MRI Brain 09/17/23 ([facility]): IMPRESSION: Postsurgical changes from right anterior temporal lobe resection. No evidence of residual or recurrent tumor. Resolution of previously seen post surgical changes and mass effect seen on previous MRI dated 10/26/2022. Chiari I malformation. No syrinx in the visualized upper cervical spine. MRI Brain 10/26/22 ([facility]): IMPRESSION: Postoperative changes of anterior right temporal lobe resection. There is little extra-axial fluid underlying the craniotomy, minor focal FLAIR hyperintensity underlying the craniotomy and development of of approximately 2 mm of [id number] left midline shift. Similar Chiari I malformation. MRI brain 03/18/22([facility]): 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 Vitals: BP: 126/69 Pulse: 98 Resp: 18 SpO2: 96 % Physical examination: Non-focal Impression: S/p right anteromesial resection with removal of a tumor on 10/25/2022 No seizures Mood is better No spikes on 6 m EEG 01/09/24 update: Patient reports two seizures since the ALEYDA both in the setting of poor medication non-compliance. First seizure following surgery was ~1 month ago (October 2023) and most recent seizure was on 12/25/23, medication levels were not detectable with most recent episode. Patient states she has been taking her ASMs currently. She is on LTG 100 mg BID and LEV 500 mg BID. Endorses fatigue as side effect, discussed this may improve if she takes her medications more consistently. Discussed importance of medication compliance, risk of in epilepsy, and SUDEP. Pre-surgical seizures: aura of abdi vu, dizzy, and nausea followed by ELISA. Post-ictal would have headache and nausea. Post-surgical seizures: aura of abdi vu, dizzy, and nausea followed by ELISA. Post-ictally she now reports more severe headache, nausea, and now endorses vomiting which did not occur prior. Plan: - Continue LEV 500 mg BID and LTG 100 mg BID, refills provided. - KLP ODT 0.5 mg wafers prescribed to be utilized PRN for auras. - Labs: CBC, CMP, LEV, and LTG level to be done in 2 weeks. Trough levels discussed. - Discussed ways to improve medication compliance including utilizing alarm system and pill container. - Seizure precautions discussed, no driving. - Patient advised to contact the office for breakthrough seizures or if she feels fatigue is not tolerable once taking medication consistently. - FA 2 mg daily prescribed, risk of defects with ASMs discussed. Discussed interactions between LTG and current control including decreased contraceptive protection. Patient advised to utilize other methods (barrier protection) to help avoid . Advised patient to contact the office if she were to become . Patient acknowledged understanding. - Repeat brain MRI in August of 2024, order placed by [facility]. - [employer] Chat sent to Dr. Zavala to update him on patient. - Follow up in 3 months, sooner if needed. I spent a total of 30 minutes on the date of the service which included preparing to see the patient, [id number] patient care, completing clinical documentation, obtaining and/or reviewing separately obtained history, performing a medically appropriate examination, counseling and educating the patient/family/caregiver, and ordering medications, tests, or procedures. Jake Arias PA-C January 09, 2024 documented in this encounter [facility] 01-09-2024 Instructions Kang Buenrostro, 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 - 01/09/2024 1:00 AM EDT Munir Ambrosio, It was good to talk with you today. Below is a summary of the plan that we discussed during your appointment for reference. Of course, if you have any questions or concerns do not hesitate to reach out to me via a message or call. Kang Uriarte 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 PLAN AND FOLLOW UP: TREATMENT PLAN: Start Effexor and gradually increase dose to 75 mg to address anxiety, mood, and some struggles with executive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 K90.0 - IMMUNOGLOBULIN A - TRANSGLUTAMINASE IGA I spent a total of 25 minutes on the date of the service which included preparing to see the patient, [id number] patient care, completing clinical documentation, obtaining and/or reviewing separately obtained history, performing a medically appropriate examination, counseling and educating the patient/family/caregiver, and ordering medications, tests, or procedures. Follow-up prn Dionte Fu MD [facility] Department of Pediatrics, [facility] documented in this encounter [facility] 09-17-2023 History of Presen t illness Narrative Post op visit for tumor MRI reviewed No seizures See back with MRI in 1 year Alvaro Magana MD documented in this encounter [facility] 09-17-2023 History of Presen t illness Narrative Radiology Service Progress Note DATE OF SERVICE: September 17, 2023 TIME: 11:56 AM PATIENT IDENTITY VERIFICATION COMPLETED USING TWO (2) STANDARD IDENTIFIERS: Name and Date of confirmed by patient verbally and Name and Date of confirmed by identification band. FALL SCREENING: Has the patient had 2 falls in the last year or 1 fall with injury or currently using an Ambulatory Assistive Device (Walker, Cane, Wheelchair, Crutches, etc.)? No PATIENT GENDER DATA: Female. status: : No status: NO. 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: No ALLERGIES: Reviewed and unchanged CONTRAST ALLERGY: NO. EXAM: MRI - CONTRAST TYPE: GROUP II PERIPHERAL IV DATA: Ambulatory: A peripheral IV was started in the Right antecubital site with a Butterfly: 23 gauge. RADIOLOGY DEPARTMENT: MR; Exam(s) Completed: Head: Routine Brain SIGNATURE: RT Selam(R) PATIENT NAME: Fabian Menjivar DATE: September 17, 2023 TIME: 11:56 AM documented in this encounter [facility] 07-18-2023 Miscellaneous Notes Message to call office to schedule FU. Needs to schedule follow up appointment. Refills can be provided after that. Last: 05/22/23 Noted- follow up in 4-6 weeks 06/19/23- No show Next: ABBEY MCKEON msg sent to schedule her follow up documented in this encounter [facility] 06-19-2023 History of Presen t illness Narrative Patient did not log in for her virtual visit with the provider today. She did not answer her phone when she was contacted prior to the appointment. documented in this encounter [facility] 06-04-2023 Miscellaneous Notes S/P RIGHT idalia-mesial temporal tumor resection. 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 No seizures Mood is better No spikes on 6 m EEG Plan: 1) Continue same ASMs 2) Seizure precautions May resume driving 3) RTC in 6 months: we will discuss [facility] father requesting appointment with Dr Magana following MRI at one year interval. Ok'd per Dr Magana Staff message sent to S51 to place in person appointment in [place] for 09/16 @ 2pm Belen Valdez, RN documented in this encounter [facility] 03-10-2023 Miscellaneous Notes Last: 02/05/2023 Noted- follow up in 2-3 weeks Next: 02/21/2023--CX'D Next: ABBEY MCKEON msg sent to patient to schedule follow up documented in this encounter [facility] 02-14-2023 Miscellaneous Notes Appointment request for Dr Magana and MRI sent to S51 desk for scheduling. Gabo Hernández No MRI availability until 05/25. Dad requested MRI to be scheduled in June when she would be on break from school. MRI and appointment with Dr. Magana scheduled for 07/01/2023. Belne Valdez RN Per Tavia Knox on 12/05 - Follow up: 6 months post op in March [address] Magana and Dr[address] Zavala with MRI and EEG - all questions and concerns were answered and addressed, patient was agreeable with the plan ===== Appointments for EEG and Dr Zavala have been schedule for 04/30/2023 Staff message sent to S51 requesting to coordinate appointments for MRI and appointment with Dr. Magana. Belen Valdez RN documented in this encounter [facility] 02-11-2023 Miscellaneous Notes Patient has been identified by name and date of : Yes Requested Prescriptions Pending Prescriptions Disp Refills FLUoxetine (PROZAC) 40 mg capsule [Pharmacy Med Name: FLUoxetine HCl 40 MG Oral Capsule] 30 capsule 0 Sig: Take 1 capsule by mouth once daily RX INSTRUCTIONS: Patient aware RX will be sent to pharmacy. No need to notify patient. Follow up 02/21/2023. Rossy Florez LPN documented in this encounter [facility] 02-05-2023 Instructions Kang Buenrostro, 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 - 02/05/2023 1:54 PM EDT Munir Ambrosio, It was good to talk with you today. Below is a summary of the plan that we discussed during your appointment for reference. Of course, if you have any questions or concerns do not hesitate to reach out to me via a message or call. Kang Uriarte APRN.ROSA PLAN AND FOLLOW UP: YOU SHOULD SEEK IMMEDIATE MEDICAL ATTENTION AT THE NEAREST EMERGENCY DEPARTMENT OR BY CALLING 911, IF ANY OF THE FOLLOWING OCCURS: - New or worsening thoughts of harming yourself (suicidal thoughts) or others (homicidal thoughts) - Not feeling safe at home or worrying about your ability to remain safe at home If you are having thoughts of harming yourself or others, then you can: - Call the National Suicide Hotline at 6-854-BZBYJZZ ( ) or 5-626-587-TALK (4853) - Text 8HHYB to 033802 Medication Update: Aripiprazole 2 mg - take 1 tablet once daily at bedtime. Change the time of Prozac to bedtime to see if it improves your fatigue. Next appointment: --Schedule in 2 to 3 weeks or sooner if needed -- You may call the department appointment line at [phone] to schedule your appointment. -- Please call my nurse Rossy at [phone] or send me a message in [employer] with any questions or concerns between appointments. documented in this encounter [facility] 02-05-2023 History of Presen t illness Narrative Images from the original note were not included. PSYC FOLLOW UP - PSYCHIATRIC PROGRESS NOTE DIAGNOSIS: Bipolar 2 disorder OCD GAF: -60-51 Moderate symptoms or moderate difficulty in social, occupational or school functioning. TREATMENT PLAN: Restart Abilify to address depressive mood. Continue Prozac at the same dose. Encouraged to start individual psychotherapy with the therapist on campus. Patient will check into accommodations her school can offer to help her manage fatigue which is related to her medications. She will send forms to this provider if needed. Follow up in 2 to 3 weeks. Medication Update: Aripiprazole 2 mg - take 1 tablet once daily at bedtime. Change the time of Prozac to bedtime to see if it improves your fatigue. The effects and side effects of all the medications were reviewed in detail with the patient. She is in agreement with the treatment plan and aware to reach out with any questions, concerns, or worsening of symptoms prior to the next appointment. CC: Follow up for worsening depressive symptoms. With the patient consent, visit was performed virtually. I have communicated my name and active licensure. The patient's identity and physical location were verified at the time of this visit. Either the patient or their legal automobile sales representative has been informed of the risks and benefits of -- and alternatives to -- treatment through a remote evaluation and consents to proceed with the evaluation remotely. HPI: Fabian Menjivar is a 22 year old Female with a history of OCD and Bipolar disorder presenting today for follow-up. Date of last visit: 06/14/2022 Plan from last visit: Increase Abilify to help with her mood and address her intrusive thoughts. Start Prozac to help with her anxiety symptoms. Utilize hydroxyzine as needed for anxiety. Encouraged to find a therapist and schedule an appointment for individual psychotherapy. Follow up in 4 weeks. Today Fabian shares that she had surgery to remove her tumor in September. She noticed worsening of her anxiety since then. She was struggling with physical symptoms of anxiety.She contacted this provider but since I was on maternity leave, her PCP appropriately increased her Prozac to 40 mg. This increase has been helpful for her anxiety symptoms but she is concerned about her depression currently. She is back in school for 8 weeks. She is working at an [employer] too. She is trying the best to manage both the responsibilities. Her grades are good so far. She has midterms coming up. She has been feeling depressed and has noticed that she is withdrawing and isolating. She maximilian by keeping herself busy. She has to push herself to go to class or engage with family and friends. They are transitioning her from Keppra to Lamictal. The plan is for her to stop Keppra in a couple months after they complete another EEG in March. No seizure activity since the tumor removal. She had an appointment with a therapist but missed it due to school. Encouraged to see the therapist at school if that is more feasible for the patient. She has been feeling more tired. This interferes with her ability to do things she needs to. She noticed more fatigue since starting school. Interval Progress: Slightly worse Risks and benefits of the medication, including any black box warnings, were discussed with the patient. Social History: See HPI PATIENT DATA: Generalized Anxiety Disorder Scale (SOO-7) SOO - 7 SCORES 10/09/2022 12/29/2022 02/03/2023 SOO-7 Score 7 20 20 (0-4) minimal anxiety, (5-9) mild anxiety, (10-14) moderate anxiety, (15-21) severe anxiety Patient Health Questionnaire (PHQ-9) PHQ-9 10/09/2022 12/29/2022 02/03/2023 Score 6 15 17 (0-4) minimal depression, (5-9) mild depression, (10-14) moderate depression, (15-19) moderately severe depression, (20-27) severe depression ROS: See HPI General: Negative for fever, See HPI HEENT: Negative for recent changes in vision or hearing, no nasal drainage Respiratory: Negative for cough, wheezing or SOB Cardiovascular: Negative for chest pain GI: Negative for nausea, vomiting, change in bowel habits MUSCULOSKELETAL: Negative for acute back or joint pain SKIN: Negative for rash NEURO: Negative for headaches, seizures, focal neurological deficits All other systems negative. VITAL SIGNS: BP Temp Pulse Resp SpO2 MENTAL STATUS EXAMINATION: Appearance: Appropriately groomed, appears stated age Behavior: Appropriately engaged Psychomotor: No psychomotor agitation Cognition Level of Consciousness: Awake and alert. No fluctuation in wakefulness. Orientation: Grossly oriented Memory: Intact Attention/Concentration: Good Fund of Knowledge: Able to demonstrate an awareness of current events. Mood: Sad Affect: Slightly tearful at times Speech/Language: Appropriate tone, prosody, shereen, phonetics, and syntax Thought Form: Goal-directed. No loosening of associations. Thought Content: No delusions noted or endorsed. Perceptual Disturbances: Did not appear to respond to auditory stimuli. Safety: Suicidal Ideations: No suicidal ideation, intent or plan. Homicidal Ideations: No homicidal ideation, intent or plan. Insight: Appropriate Judgment: Appropriate I spent a total of 28 minutes on the date of the service which included preparing to see the patient, [id number] patient care, completing clinical documentation, and counseling and educating the patient/family/caregiver, ordering medications/labs. Kang Buenrostro APRN.ROSA February 05, 2023 1:26 PM This note was partially generated using Liftopia voice recognition system. Note was reviewed for accuracy. There may be minor misspellings or grammar miscues with [employer] voice recognition. documented in this encounter [facility] 01-06-2023 Miscellaneous Notes The following approved medication requests have been transmitted electronically. Requested Prescriptions Signed Prescriptions Disp Refills levETIRAcetam (KEPPRA) 500 mg tablet 60 tablet 5 Sig: Take 1 tablet by mouth twice daily Authorizing Provider: LENO OWENS APRN.VENEER MATCHER documented in this encounter [facility] 01-03-2023 Miscellaneous Notes Pt notified via [employer]. Chelsy Galeana LPN ----- Message from Helga Maher MD sent at 01/03/2023 4:24 PM EDT ----- LSIL - repeat pap in one year. documented in this encounter [facility] 12-25-2022 History of Presen t illness Narrative Gasket Inspector offered: Patient declines. Ambrosio is a 22 year old who presents for an annual gynecologic exam without complaints. jR. 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 Had brain tumor removed this summer- doing well. Menses: cycles every 28 days and 3-4 days of flow. Contraception: combined hormonal contraceptives HPV vaccine: Yes Last Pap: NA History of abnormal pap: NA Last mammogram: never Sexually active: Yes History of STDS: None Patient concerns for STD exposure: No. Pain with intercourse: No Postcoital bleeding: No Exercise: Active Diet: balanced 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 History LMP: 11/18/2022 (Exact Date), Having periods Age at Menarche: Age at First : Age at Menopause: Dog License Officer Supervisor History Comments: Sexual Activity: Yes; Male Contraception: Condom PAST MEDICAL HISTORY Diagnosis Date Brain tumor (HCC) Depression Family history of seizure disorder Hiatal hernia History of heavy periods 2014 Low back strain 10/2015 [facility]/ PT Obesity (BMI 30-39.9) 10/23/2022 PMH - PAST MEDICAL HISTORY OF 2006 normal color vision PAST SURGICAL HISTORY Procedure Laterality Date BRAIN SURGERY HX 10/25/2022 EGD 08/28/2020 Hiatal hernia, Variable villous abnormality with associated epithelial lymphocytosis, Gastric oxyntic-type mucosa with no pathologic diagnostic abnormality KNEE SURGERY HX Right 2020 ACL repair PAST SURGICAL HISTORY OF Left ACL repair FAMILY HISTORY Problem Relation Age of Onset No Known Problems Mother No Known Problems Father No Known Problems Sister No Known Problems Brother Heart Maternal Uncle Enlarged heart other (Anneurism) Maternal Grandmother Heart Maternal Grandfather age 62 [place] No Known Problems Paternal Grandmother No Known Problems Paternal Grandfather Diabetes Other mggfa Cancer Other MGGF Anesthesia Problems No Family History SOCIAL HISTORY Social History Tobacco Use Smoking status: Never Smokeless tobacco: Never Vaping Use Vaping Use: Never used Substance Use Topics Alcohol use: Yes Comment: every other weekend Drug use: Yes Types: Marijuana Comment: weekends REVIEW OF SYSTEMS Abdomen: No abdominal pain, nausea, vomiting, diarrhea, or constipation. No bloating, early satiety, indigestion, or increased flatulence. Bladder: No dysuria, gross hematuria, urinary frequency, urinary urgency, or incontinence. Breast: No breast lumps, nipple d/c, overlying skin changes, redness or skin retraction. Allergies and current medication updated:Yes EXAM: BP 118/62 Ht 5' 2 (1.58m) Wt 194 lb (88.0kg) LMP 11/18/2022 BMI 35.47 kg/(m^2). GENERAL: pleasant, female in no apparent distress HEENT: Normocephalic, atraumatic, mucus membranes moist, and no lesions NECK: Supple, full range of motion, no adenopathy, and thyroid normal DERMATOLOGY: Normal, without lesions, non-icteric, and non-hirsute BREAST: soft, non-tender, symmetric, no dominant mass, normal nipple-areolar complex, no lymphadenopathy, and no nipple discharge ABDOMEN: soft, non-tender, and no masses PELVIC: external genitalia normal, normal Bartholin's glands, urethra, Kamaili's glands, no vulvar lesions, no cervical lesions, good vaginal support, physiologic discharge present, normal appearing perineal body and perianal region BIMANUAL: uterus normal size, shape and consistency, no adnexal masses, and non-tender RECTOVAGINAL: deferred. NEURO: alert and oriented x3,exam grossly non-focal EXTREMITIES: normal ASSESSMENT/PLAN: 1) Health maintenance: Pap done with reflex HPV. Mammogram starting age 40. Nutrition, exercise and routine health maintenance exams reviewed. Calcium/Vitamin D supplementation information provided. HPV vaccine: completed series 2) Contraception: combined hormonal contraceptives. Contraceptive options reviewed and information provided. 3) STD screening: Accepted STD check for Gonorrhea and Chlamydia. 4) Follow up one year or sooner as needed Helga Turcios MD documented in this encounter [facility] 12-05-2022 History of Presen t illness Narrative [facility] NE[facility] CHIEF COMPLAINT: 6 week post op ? 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 Magana who presents today for 6 week post op appt. 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 Patient tolerated the procedure well and had an uneventful hospital course. She was discharged on post op day 3 in stable condition. Sutures were removed locally. Consults were placed post operatively for neuro oncology and behavioral health as Fabian was reporting increased anxiety. She is an established patient of Dr. Zavala and is compliant with her ASM regimen. Today, she reports she is recovering well from surgery from a physical standpoint. Denies headache, vision changes, speech deficits, AMS/confusion, focal extremity weakness, or gait disturbance. She is not taking pain medications at this time. She has not had any seizures since surgery. She does report severe depression and anxiety that has gotten worse since the surgery. It is having a significant impact on her quality of life and her mother reports that any small thing throws her for a loop. She has daily panic attacks and reports that nothing calms her down. She admits that she has constant thoughts of harming herself but does not have any active plans. Mother reports that there are no guns in their home. Fabian states her biggest triggers are school related and balancing school with her work schedule as she is about to start a job at [employer]. She was recently evaluated in the ER due to suicidal ideation, but was not admitted. Her mother reports that no changes were made to her antidepressant medications as they were hesitant to do so because of all the medications she is already taking. Her prozac was recently increased and she also takes Abilify. Reports minimal appetite and she only eats dinner. States she feels hopeless, down and depressed majority of each day. She has been unable to secure an earlier appt with behavioral health, right now she is scheduled for 12/31/22. 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 States that she feels her anxiety is worse than the depressive symptoms. 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 Mood: tearful ? CURRENT OUTPATIENT MEDICATIONS: Current Outpatient Medications Medication Sig FLUoxetine (PROZAC) 40 mg capsule Take 1 capsule by mouth once daily. oxyCODONE IR (ROXICODONE) 5 mg immediate release tablet Take 1 tablet by mouth every 8 hours as needed for pain. acetaminophen (TYLENOL) 325 mg tablet Take 2 tablets by mouth every 4 hours as needed for pain or fever methocarbamol (ROBAXIN) 750 mg tablet Take 1 tablet by mouth three times daily as needed for jaw pain ibuprofen (MOTRIN) 800 mg tablet Take 1 tablet by mouth every 8 hours as needed for pain spironolactone (ALDACTONE) 50 mg tablet TAKE 1 TABLET BY MOUTH EVERY NIGHT WITH A FULL GLASS OF WATER Drospirenone-Ethinyl Estradiol (LORYNA, 28,) 3-0.02 mg per tablet Take 1 tablet by mouth once daily. dicyclomine (BENTYL) 10 mg capsule TAKE 1 CAPSULE BY MOUTH BEFORE DINNER. MAY REPEAT AT BEDTIME NEEDED. levETIRAcetam (KEPPRA) 500 mg tablet Take 1 tablet by mouth twice daily lamoTRIgine (LAMICTAL) 100 mg tablet Take 1 tablet by mouth daily at bedtime for 7 days, THEN 1 tablet twice daily. Start on week 7 of titration. Week 7 take with 75 mg( 3x25 mg tabs) in the am. Week 8: take 100 mg twice daily and continue this dose thereafter.. midazolam (NAYZILAM) 5 mg/spray (0.1 mL) nasal spray Use 1 spray in one nostril as needed for seizures lasting > 5 minutes or >=3 seizures in 8 hours. May repeat dose in alternate nostril after 10 minutes based on response and tolerability. ARIPiprazole (ABILIFY) 5 mg tablet Take 1 tablet by mouth once daily. No current facility-administered medications for this visit. NEUROLOGICAL EXAM: nonfocal neurological exam AOX3, in no acute distress. Patient is tearful upon entering the room. Speech is fluent and without slurring. PERRL, EOMI. Visual montelongo full. Face symmetric and tongue is midline. No drift. Strength is 5/5 throughout all muscle groups in the upper and lower extremities. Sensation is intact to light touch throughout. Gait is steady and independent. Cranial incision is clean, dry and intact without signs of infection or wound dehiscence. PREVIOUS EVALUATIONS: MRI brain w/o contrast 10/26/22: IMPRESSION: Postoperative changes of anterior right temporal lobe resection. There is little extra-axial fluid underlying the craniotomy, minor focal FLAIR hyperintensity underlying the craniotomy and development of of approximately 2 mm of [id number] left midline shift. Similar Chiari I malformation. 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 Magana who presents today for 6 week post op appt. 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 Patient tolerated the procedure well and had an uneventful hospital course. She was discharged on post op day 3 in stable condition. Sutures were removed locally. Consults were placed post operatively for neuro oncology and behavioral health as Fabian was reporting increased anxiety. She is an established patient of Dr. Zavala and is compliant with her ASM regimen. Today, she reports she is recovering well from surgery from a physical standpoint. Denies headache, vision changes, speech deficits, AMS/confusion, focal extremity weakness, or gait disturbance. She is not taking pain medications at this time. She has not had any seizures since surgery. She does report severe depression and anxiety that has gotten worse since the surgery. It is having a significant impact on her quality of life and her mother reports that any small thing throws her for a loop. She has daily panic attacks and reports that nothing calms her down. She admits that she has constant thoughts of harming herself but does not have any active plans. Mother reports that there are no guns in their home. Fabian states her biggest triggers are school related and balancing school with her work schedule as she is about to start a job at [employer]. She was recently evaluated in the ER due to suicidal ideation, but was not admitted. Her mother reports that no changes were made to her antidepressant medications as they were hesitant to do so because of all the medications she is already taking. Her prozac was recently increased and she also takes Abilify. Reports minimal appetite and she only eats dinner. States she feels hopeless, down and depressed majority of each day. She has been unable to secure an earlier appt with behavioral health, right now she is scheduled for 12/31/22. 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 States that she feels her anxiety is worse than the depressive symptoms. ? PLAN: - patient is recovering well from surgery from a physical standpoint but she continues to struggle significantly with depression/anxiety symptoms and thoughts of harming herself - reached out to [facility] behavioral health and there are not any sooner appts available but patient has been placed on a waitlist and will be contacted if an appt opens up, will provide Fabian with the numbers to outside therapists that have been vetted by [facility] - reassured patient that returning to school and starting her job may be difficult at first but it may also be a welcome distraction and provide a sense of normalcy - may gradually ease back into prior activities including exercise, lifting, etc as tolerated - provided the [facility] health emergency number [phone] and encouraged patient to report to the ED immediately if she has any severe symptoms or active plans to harm herself - encouraged meditation, healthy diet, exercise, journaling, etc - continue current ASM regimen, seizure precautions remain in place - Follow up: 6 months post op in March [address] Magana and Dr[address] Zavala with MRI and EEG - all questions and concerns were answered and addressed, patient was agreeable with the plan A total of 20 minutes was spent during the visit with greater than 50% of the time spent counseling and coordinating care of the above plan, discussing the following issues: post op recovery, anxiety/depression, as well as answering the patient's numerous questions. Saul Knox PA-C December 05, 2022 11:24 AM documented in this encounter [facility] 11-29-2022 History of Presen t illness Narrative Fabian Menjivar is a 22-year-old female followed by adult psychiatry (current provider is on maternity leave) presents to the office today with feelings of significant anxiety with the start of college approaching. Patient recently had significant neurosurgery. Status post right temporal lobectomy for tumor resection on 10/25/[address] Magana. Patient states her recovery is gone well. She feels generally anxious. She will have vomiting 1-2 times in the morning. This does not occur the rest of the day. It is not associated with a headache. Sleep: Bedtime is approximately 11:30 PM. Sleep onset latency is 30 minutes. Nighttime awakenings are rare. She wakes between 630 and 7 AM most days but does not feel quite restful. College: Patient will be starting her joshua year at [employer]. 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 She will live off campus with 3 roommates in an apartment Previous therapist has included [facility] approximately 1 year ago. 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) Focal Seizure With Experiential Sensory Symptoms (Hcc) Depression Obesity (Bmi 30-39.9) 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) Obesity, Class II, Bmi 35-39.9 Midline Shift of Brain PAST MEDICAL HISTORY Diagnosis Date Brain tumor (HCC) Depression Family history of seizure disorder Hiatal hernia History of heavy periods 2014 Low back strain 10/2015 [facility]/ PT Obesity (BMI 30-39.9) 10/23/2022 PMH - PAST MEDICAL HISTORY OF 2006 normal color vision PAST SURGICAL HISTORY Procedure Laterality Date EGD 08/28/2020 Hiatal hernia, Variable villous abnormality with associated epithelial lymphocytosis, Gastric oxyntic-type mucosa with no pathologic diagnostic abnormality KNEE SURGERY HX Right 2020 ACL repair PAST SURGICAL HISTORY OF Left ACL repair ALLERGIES No Known Allergies 11/29/22 0933 BP: 122/74 Pulse: 92 Resp: 16 Temp: 36 C (96.8 F) TempSrc: Temporal Weight: 88.5 kg (195 lb 3.2 oz) GENERAL: Appearance: Neat and clean, Attired in street clothes, Appropriately groomed, and Appropriate hygiene Behavior: nervous Activity/Motor: normal Interaction: Eye Contact: Yes Interaction: Yes Gait: normal Speech:clear and distinct Yes, Dysrthic No MOOD: Affect:: Mood Congruent Thought Form: Linear and Organized Content: Rational and future-oriented Suicidal: Denies Perception: Appears intact Cognition: Intact Orientation Insight: Present and adequate Judgment: Present and adequate Additional Observations: No ASSESSMENT/PLAN: 1. Generalized anxiety disorder - ICD9: 300.02, ICD10: F41.1 Recommend DBT Dosage increase of fluoxetine to 40 mg - FLUOXETINE 40 MG CAPSULE I spent a total of 25 minutes on the date of the service which included preparing to see the patient, [id number] patient care, completing clinical documentation, obtaining and/or reviewing separately obtained history, performing a medically appropriate examination, counseling and educating the patient/family/caregiver, and ordering medications, tests, or procedures. Follow-up Does have an intake visit with a local therapist virtually. Strongly recommend she continues to follow-up with ROSA Ronquillo APRN, MD [facility] Department of Pediatrics, [facility] documented in this encounter [facility] 11-26-2022 Miscellaneous Notes Pictures provided by Dr Magana and Jose Vicente sent to patient via personal email account on file. Belen Valdez RN documented in this encounter [facility] 11-20-2022 Miscellaneous Notes [facility] schedulers - please disregard scheduling request below. Per Dr Magana on 11/20: 6 month follow up with MRI should be the normal 6 month follow up post surgical follow up. Orders should be placed by epileptologist or Nevin Soto. (MRI order has already been placed by Lissette Knox) Will still need long eeg appt. with Nevin Soto and epileptologist and Dr Magana. Forwarded to Je Vasquez and Nevin Soto for coordination of appointments week of 04/14 Belen Valdez RN S/P Right temporal lobectomy for tumor excision Spoke with Etienne, they are happy to reconvene with Dr. Magana in 6 months following surgery as originally discussed. Request to schedule and coordinate MRI then appointment for same day week of 04/14/2023 ======== Forwarded to [facility] for coordination of MRI and appointment same day for the week of 04/[address] Magana. Belen Valdez RN Called Etienne, no answer Message left requesting return call. Belen Valdez RN MRI brain w/wo contrast ordered and should be done in April 2023 Images from the original note were not included. S/P 10/25 RIGHT temporal lobectomy for tumor resection. Pathology results 11/08: FINAL DIAGNOSIS A. Brain, right temporal lobe, resection: - Cortex and subcortical white matter with mild subpial (Chaslin's) gliosis, negative for definitive neoplasm B. Brain, right temporal tumor, excision: - Low grade glial neoplasm, see comment C. Brain, hippocampus, resection: - Hippocampus with preservation of pyramidal neurons Alvaro Magana MD Andrich, Theresa, DENIS Fabian should see Elijah in follow up for tumor. Does she know path? NOTE: following last appointment - Dr. Magana wanted 6 month follow up with MRI Spoke with Etienne, discussed recommendation to consult with Dr Carl Nava, neuro -oncology to discuss next steps in treatment plan. Etienne stated that he did discuss the pathology results with Dr. Magana and was advised the pathology did reveal a tumor but stated he could either follow up at that time with neuro - oncology or wait till the 6 month follow up with Dr Magana and review the MRI and the decision could be made then. Discussed the above with Dr. Magana, he agreed with the plan as the father stated. Called Etienne, no answer. Message left advising per above, requested return call to confirm he would like to proceed with 6 month follow up as originally discussed Will schedule 6 month follow up appointment with MRI Forwarded to Tavia Knox for filing of MRI once I speak with Etienne. Belen Valdez, RN documented in this encounter [facility] 11-01-2022 Miscellaneous Notes Addended by: SAUL KNOX on: 11/01/2022 02:57 PM Modules accepted: Orders The following approved medication requests have been transmitted electronically. Requested Prescriptions Signed Prescriptions Disp Refills oxyCODONE IR (ROXICODONE) 5 mg immediate release tablet 12 tablet 0 Sig: Take 1 tablet by mouth every 8 hours as needed for pain. Saul Knox PA-C November 01, 2022 2:57 PM Forwarded to Tavia Knox PA-C for filing refill Belen Valdez RN Message sent to Dr. Magana requesting pictures. Belen Valdez RN documented in this encounter [facility] 10-30-2022 History of Presen t illness Narrative TRANSITION CARE MANAGEMENT (TCM) INITIAL CONTACT 2nd Attempt: Called to touch base about patient's most recent hospitalization. No answer. Left message requesting the family call this RN directly at [phone] First Attempt: Called to touch base about patient's most recent hospitalization. No answer. Mailbox full and unable to leave a message. Initial contact with patient post discharge, left message for call back. Patient identified by name and . TRANSITION CARE MANAGEMENT: No flowsheet data found. SUMMARY: -Pt discharged from [facility] EMU/Neuro Stepdown on 10/28/22. -Follow up appointment on Appointments for Next 60 Days Date Time Provider Location Dept Phone 11/06/2022 11:30 AM BELEN VALDEZ [phone] 12/05/2022 9:50 AM HELGA LORENZANA [facility] [phone] 12/05/2022 10:30 AM SAUL KNOX [facility] [phone] . -Medication review done yes this RN reviewed medications; unable to review with family at this time . -Admitted for: 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) CONCERNS: TBD NEW MEDICATIONS: acetaminophen 325 mg tablet Commonly known as: TYLENOL Take 2 tablets by mouth every 4 hours as needed for pain or fever ibuprofen 800 mg tablet Commonly known as: MOTRIN Take 1 tablet by mouth every 8 hours as needed for pain lidocaine 4 % patch Commonly known as: SALONPAS Apply 2 Patches as directed once daily for 5 days. Start taking on: October 29, 2022 methocarbamol 750 mg tablet Commonly known as: ROBAXIN Take 1 tablet by mouth three times daily as needed for jaw pain oxyCODONE IR 5 mg immediate release tablet Commonly known as: ROXICODONE Take 1-2 tablets by mouth every 4 hours as needed for pain for up to 5 days. senna-docusate 8.6-50 mg per tablet Commonly known as: SENNA-S Take 1 tablet by mouth once daily. 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 After being optimized for surgery by the Neurosurgery and Internal Medicine teams, Fabian Menjivar was identified and brought into the Operating Room by the anesthesia and nursing teams. Prior to surgery the patient was treated with antibiotics and continued with antibiotics postoperatively. The patient underwent a right temporal lobectomy with general endotracheal anesthesia. The patient tolerated the procedure and was taken to PACU in stable condition. The patient was then transferred up to Neuro specific hospital unit for postoperative management. Patient was fitted with sequential compression devices for DVT prophylaxis. Patient was hemodynamically stable postoperatively. POD 1: Patient reported pain over her swollen eye and incision. She was able to eat, ambulate and void. POD 2: Patient's drain was removed and she was slowly improving. Decadron was continued for treatment of cerebral edema. MRI brain was completed demonstrating expected post-operative findings. POD 3: Patient was given toradol to help with neck pain and muscle spasm discomfort.Discussed with dad and patient to not drive following surgery as well as to no drink alcohol. The patient was discharged on POD # 3 in stable condition. Complete and comprehensive discharge instructions were provided to the patient as well as necessary prescriptions. The patient had no further questions and was advised to call with any questions, concerns, or problems. Patient's pain was well controlled with oral pain medications upon discharge. Physical Therapy was started on POD # 1. Patient progressed satisfactorily through physical therapy until discharge. Based upon the appropriate milestones the patient met during the hospital course, Physical Therapy recommended patient be discharged to home. Patient had no signs/symptoms of DVT, so no ultrasound was done during hospital course. MRI of brain was performed during post-operative hospital course on post-op day 1 for post-operative evaluation. epilepsy was consulted during hospital course for AED regimen Pending results: brain pathology documented in this encounter [facility] 10-24-2022 Miscellaneous Notes The following approved medication requests have been transmitted electronically. Requested Prescriptions Signed Prescriptions Disp Refills mupirocin (BACTROBAN) 2 % ointment 22 g 0 Sig: Apply small amount of ointment to inside of each nostril using cotton swab twice today and once tomorrow morning before surgery Authorizing Provider: SAUL KNOX PA-C October 24, 2022 3:30 PM Spoke with Fabian, advised MRSA/ MSSA swab was positive. She will need to start treatment keith this afternoon and continue twice daily up and including the morning of surgery. She requests RX to be sent to [facility]. Forwarded to Tavia Knox for filing of RX Belen Valdez RN documented in this encounter [facility] 10-23-2022 History of Presen t illness Narrative Preop visit for informed consent. Patient and her father were present. We discussed right temporal lobectomy for resection of underlying brain tumor. They asked very good questions. Informed consent was signed. Alvaro Magana MD documented in this encounter [facility] 10-23-2022 History of Presen t illness Narrative Nurse visit for preoperative education. Plan of care and inpatient/outpatient teams discussed. Post operative restrictions and follow up care and timeline discussed. Surgical binder given to patient. All questions answered. Belen Valdez RN documented in this encounter [facility] 10-23-2022 Instructions Fidencio Armstrong APRN.VENEER MATCHER - 10/23/2022 12:13 PM EDT PATIENT PREOPERATIVE INSTRUCTIONS No ref. provider found has scheduled you for your procedure at this surgery center: [facility] Scheduling Office: [phone] --[address] [place] [address]. Please read below carefully for your personalized instructions. Dietary Restrictions: - No solid food after midnight. - You may have 12 ounces of clear liquids (water, clear juices such as apple juice or gatorade, carbonated beverages, clear tea, black coffee, jello) until 2 hours before scheduled arrival at facility. Medications: Unless instructed differently below, stay on all of your medications until your surgery. Approved medications to take the morning of surgery with a sip of water: dicyclomine (BENTYL) levETIRAcetam (KEPPRA) lamoTRIgine (LAMICTAL) ARIPiprazole (ABILIFY) 5 FLUoxetine (PROZAC) Do no take Drospirenone-Ethinyl Estradiol. Use another form of control to prevent If you start any new medications after today's visit, please contact the surgeon's office. Blood Thinning Medications: - Stop NSAIDS (Ibuprofen, Advil, Aleve, Motrin, Celebrex, Mobic, etc.) 7 days before surgery, as directed by your surgeon. -Stop aspirin 7 days before surgery - Stop Vitamin E, ALL multi-vitamins, herbals and dietary supplements 7 days before surgery. - You may take Tylenol (Acetaminophen) or any of your pain medications that do not contain aspirin or NSAIDS as needed. Important Reminders: - Candy, mints, and tobacco products are NOT permitted the morning of surgery. - Hearing aids, dentures and glasses may be worn the morning of surgery. - NO jewelry, body piercings, makeup, hairpins or contacts are to be worn the day of surgery. If you develop symptoms such as a fever, cold, or flu, or have other changes to your health within TWO DAYS of scheduled surgery or the morning of surgery, please contact the surgery center above. Personal Belongings: -Please have photo ID and insurance cards. -If you do not have a copy of advance directives on file with us, please bring a copy with you on the day of surgery. - Leave ALL valuables and money at home or with family members. Arrival Time for Surgery: - To obtain your arrival time for surgery, call your physician's office the day before your surgery. - If your surgery is scheduled for Friday, call the Friday before. Your surgeon s imaging scheduler will tell you what time to call the office. - If you have not reached the departmental imaging scheduler by 5 P.M., call [phone] after 5 P.M. the day before your surgery. Please be aware that emergency situations arise, which may delay or change your surgical time. If this happens, we will notify you as soon as possible and regret any inconvenience. If you already have an Advance Directive, please fax a copy to [phone] or email to for it to be added to your chart. If you do not have an Advance Directive, you can find the appropriate form and more information at [email or web address]. We recommend that you complete the Advance Directive form found on the website and bring it with you the day of your surgery. It can be witnessed and scanned into your chart that day. Fidencio Armstrong APRN.ROSA documented in this encounter [facility] 10-23-2022 History and physical note HISTORY AND PHYSICAL EXAMINATION SERVICE DATE: 10/23/2022 SERVICE TIME: 12:15 PM PRIMARY CARE PHYSICIAN: Dionte Fu MD REASON FOR VISIT: Fabian Menjivar is a 22 year old female who is scheduled for Procedure(s): CRANI W/ ELEVATION BONE FLAP FOR TEMPORAL LOBECTOMY W/O INTRAOPERATIVE EC (Right) MICROSURGICAL TECHNIQUE FOR CRANIOTOMY PROCEDURES (Right) at the request of Dr. Alvaro Magana MD for consultation. My final recommendation will be communicated back to the requesting physician by way of shared medical record or letter. 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 Patient reports a prior COVID-19 infection, with an infection date of 2020. CHIEF COMPLAINT: Pre-Op Visit HPI: 22 year old female who has Partial epilepsy with impairment of consciousness, intractable seen for PACC. She has periods of altered mental status including memory loss over the last several years. She reports last seizure activity was 10/05/22. A MRI was performed 03/18/22 showed Chiari I malformation with mild compression of the cervical medullary Junction and Findings likely representing a dysembryoplastic neuroepithelial tumor in the mesial right temporal lobe. Scheduled for CRANI W/ ELEVATION BONE FLAP FOR TEMPORAL LOBECTOMY W/O INTRAOPERATIVE EC (Right) MICROSURGICAL TECHNIQUE FOR CRANIOTOMY PROCEDURES (Right) on 10/25/22. Denies any fever, chills, nausea, vomiting, SOB, dizziness, lightheadedness, palpitations, syncope, chest pain or abdominal pain. She has elected to proceed with the surgical procedure. REVIEW OF SYSTEMS: General: No weight loss, malaise or fevers. Neurological: See HPI. + Chiari malformation type I + Neoplasm of uncertain behavior of brain Positive for: seizures. Negative for: TIA and strokes. Respiratory: Positive for: prior COVID-19 infection. Date of COVID-19 infection: 2020. Negative for: asthma, bronchitis, COPD, current cough, dyspnea, orthopnea, pneumonia within 6 weeks, tobacco use, URI < 2 weeks and obstructive sleep apnea. Cardiovascular: No history of HTN requiring medication, no history of angina, CHF, [place], cardiac surgery or stents. Denies rest pain, gangrene or revascularization/amputation for PVD. No history of cardiovascular symptoms or problems. GI: + Celiac disease Negative for: abdominal pain, colon cancer, diverticulitis, GERD, hepatitis, liver disease, pancreatitis, history of polyps and rectal cancer. : No history of dysuria, frequency or incontinence, stones or chronic kidney disease. No difficulty urinating, nocturia > 1 time per night or hematuria. PRINT PRODUCTION COORDINATOR: Negative for abnormal vaginal bleeding, abnormal vaginal discharge. Endocrine: No history of diabetes. Has not taken steroids within the past 30 days. No history of endocrinological symptoms or problems. Hematology: No history of bleeding or clotting disorder. Patient is not taking anti-coagulation or platelet medications. No history of hematological symptoms or problems. Oncology: See HPI. Psych: Positive for: anxiety, bipolar disorder and depression. Musculoskeletal: Negative for joint pain or swelling, back pain or muscle pain. Skin: Negative for lesions, rash and itching. PAST MEDICAL HISTORY Diagnosis Date Brain tumor (HCC) Depression Family history of seizure disorder Hiatal hernia History of heavy periods 2014 Low back strain 10/2015 [facility] Obesity (BMI 30-39.9) 10/23/2022 PMH - PAST MEDICAL HISTORY OF 2006 normal color vision PAST SURGICAL HISTORY Procedure Laterality Date EGD 08/28/2020 Hiatal hernia, Variable villous abnormality with associated epithelial lymphocytosis, Gastric oxyntic-type mucosa with no pathologic diagnostic abnormality KNEE SURGERY HX Right 2020 ACL repair PAST SURGICAL HISTORY OF Left ACL repair FAMILY HISTORY Problem Relation Age of Onset No Known Problems Mother No Known Problems Father No Known Problems Sister No Known Problems Brother Heart Maternal Uncle Enlarged heart other (Anneurism) Maternal Grandmother Heart Maternal Grandfather age 62 [place] No Known Problems Paternal Grandmother No Known Problems Paternal Grandfather Diabetes Other mggfa Cancer Other MGGF Anesthesia Problems No Family History Social History Tobacco Use Smoking status: Never Smokeless tobacco: Never Vaping Use Vaping Use: Never used Substance Use Topics Alcohol use: Yes Comment: every other weekend Drug use: Yes Types: Marijuana Comment: weekends Prior to Admission medications as of 10/23/22 1210 Medication Sig Last Dose Taking spironolactone (ALDACTONE) 50 mg tablet TAKE 1 TABLET BY MOUTH EVERY NIGHT WITH A FULL GLASS OF WATER Taking Yes Drospirenone-Ethinyl Estradiol (LORYNA, 28,) 3-0.02 mg per tablet Take 1 tablet by mouth once daily. Taking Yes dicyclomine (BENTYL) 10 mg capsule TAKE 1 CAPSULE BY MOUTH BEFORE DINNER. MAY REPEAT AT BEDTIME NEEDED. Taking Yes levETIRAcetam (KEPPRA) 500 mg tablet Take 1 tablet by mouth twice daily Taking Yes lamoTRIgine (LAMICTAL) 100 mg tablet Take 1 tablet by mouth daily at bedtime for 7 days, THEN 1 tablet twice daily. Start on week 7 of titration. Week 7 take with 75 mg( 3x25 mg tabs) in the am. Week 8: take 100 mg twice daily and continue this dose thereafter.. Taking Yes midazolam (NAYZILAM) 5 mg/spray (0.1 mL) nasal spray Use 1 spray in one nostril as needed for seizures lasting > 5 minutes or >=3 seizures in 8 hours. May repeat dose in alternate nostril after 10 minutes based on response and tolerability. Taking Yes ARIPiprazole (ABILIFY) 5 mg tablet Take 1 tablet by mouth once daily. Taking Yes FLUoxetine (PROZAC) 10 mg capsule Take 1 capsule by mouth once daily for 7 days, THEN 2 capsules once daily. Taking Yes Medication Comments documented by Afshan Sanabria RN on 11/08/2020 at 1154. 11/08/20 states taking no medication. Afshan Sanabria RN ALLERGIES No Known Allergies Objective PHYSICAL EXAM: General: alert and oriented and healthy appearance. Skin: normal color, no rash or lesions. HEENT: pupils equal round and pupils reactive to light. Cardiovascular: regular rate and rhythm, normal S1 and S2, no rub, murmurs, or gallop. Respiratory: normal breath sounds, no wheezes or crackles. No chest wall deformity or tenderness. Abdomen: bowel sounds present and soft. Extremities: no deformity, no edema or tenderness, no joint swelling or clubbing. Neurological: normal cognition and motor skills. Gait normal. No weakness or sensory deficit. PAIN ASSESSMENT: VITALS: BP 112/63 Pulse 106 Temp (Src) 97.4 (Temporal) Ht 5' 2 (1.58m) Wt 201 lb 3.2 oz (91.3kg) SpO2 97% LMP 09/04/2022 BMI 36.79 kg/(m^2). Diagnostic tests reviewed for today's visit: Lab Value Units Date High Low HB 13.3 g/dL 07/01/2022 15.5 11.5 HCT 37.8 % 07/01/2022 46.0 36.0 WBC 13.28 k/uL 07/01/2022 11.00 3.70 PLT 431 k/uL 07/01/2022 400 150 NA 137 mmol/L 07/01/2022 144 136 K 3.8 mmol/L 07/01/2022 5.1 3.7 GLUC 88 mg/dL 07/01/2022 99 74 BUN 12 mg/dL 07/01/2022 21 7 CREAT 0.66 mg/dL 07/01/2022 0.96 0.58 PTSEC No results within date range. INR No results within date range. APTT 30.6 sec 07/01/2022 32.4 23.0 ALT 16 U/L 07/01/2022 38 7 AST 20 U/L 07/01/2022 35 13 TBILI 0.2 mg/dL 07/01/2022 1.3 0.2 TSH 2.550 mIU/L 07/01/2022 4.300 0.510 Lab Value Units Date High Low HCGQT No results within date range. UHCG No results within date range. HCG, BODY* No results within date range. Lab Value Units Date High Low ABORHD No results within date range. ABSCREEN No results within date range. No results found for: HBA1C No results found for this or any previous visit (from the past 8760 hour(s)). No results found for this or any previous visit (from the past 88268 hour(s)). Assessment Patient has the following medical conditions which may affect austin-operative course: Bipolar 2 disorder (HCC) Managed with ARIPiprazole and FLUoxetine (PROZAC) Followed by PCP Patient reports stable and controlled Generalized anxiety disorder Manged with FLUoxetine (PROZAC) and ARIPiprazole (ABILIFY) Followed by PCP Reports stable and controlled Chiari malformation type I (HCC) Followed by neurology Depression Manged with FLUoxetine (PROZAC) and ARIPiprazole (ABILIFY) Followed by PCP Reports stable and controlled Celiac disease Managed with dicyclomine (BENTYL) and diet Followed by PCP Obesity (BMI 30-39.9) Body mass index is 36.8 kg/m . Seizure-like activity (HCC) Managed with levETIRAcetam (KEPPRA) and lamoTRIgine (LAMICTAL) Patient reports last seizure 10/05/22 Followed by neurology. 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) Patient followed by neurology Patient for surgery 10/25/22 Lopez Activity Status Index: METS: Walk indoors, such as around the house (1.75 METs) Do light work around the house, such as dusting or washing dishes (2.70 METs) Take care of self; that is eating, dressing, bathing, using the toilet (2.75 METs) Walk a block or two on level ground (2.75 METs) Do moderate work around the house, such as vacuuming, sweeping floors, or carrying in groceries (3.50 METs) Climb a flight of stairs or walk up a hill (5.50 METs) DASI Score: 18.95 Patient denies any chest pain or undue shortness of breath with the above physical activity. STOP-Bang Score: BMI greater than 35 kg/m^2 Denies snoring loudly Denies feeling tired, fatigued, or sleepy during the daytime Has not been observed to stop breathing or choking/gasping during sleep Denies having high blood pressure Patient 50 years old or younger Non-male patient STOP-Bang Score: 1 [id number] Score: [id number] Score: 0 ASA Class: 2 ANESTHESIA FINDINGS: Intubation History: Significant Anesthesia Considerations: Airway History: I - PHYSICAL EVALUATION AIRWAY Patient intubated: No. Tracheostomy tube not present Mallampati: II. TM distance: >3 FB. Neck ROM: full ROM without neurological symptoms. Mouth opening: adequate. Short neck: no. Thick neck: no King present: no Lip Bite Test: I DENTAL Dental findings: teeth intact. Additional comments: Perm retainer upper and lower. II - ANESTHESIA PLAN ASA Score: 2 Anesthetic Plan: other Anesthetic plan additional comments: *PACC/TCI - anesthesia choice. Beta Megan Monitoring Plan Post Procedure Analgesic Plan Prepared for Surgery: optimally prepared for surgery, pending [see comment]. CBC, CMP (ordered by surgery) type and screen, CONABO, EKG and DOS exam CONSULTS: Patient does not require consults for optimization at this time Planned Anesthetic: other anesthesia choice The Following Tests/Procedures Have Been Initiated: Orders Placed This Encounter Type and Screen, 30 day Standing Status: Future Standing Expiration Date: 12/23/2022 Confirm Blood Type Standing Status: Future Standing Expiration Date: 12/23/2022 Order Specific Question: Did Blood Bank direct you to place this order: Answer: No - Presurgical Workflow ECG COMPLETE Standing Status: Future Standing Expiration Date: 10/24/2023 Instructions Given to Patient: Instructions located in the after visit summary. Patient given verbal and written preop instructions and voices comprehension and compliance. SIGNATURE: Fidencio Armstrong APRN.CNP PATIENT NAME: Fabian Menjivar DATE: October 23, 2022 TIME: 11:54 AM PAGER/CONTACT #: documented in this encounter [facility] 10-09-2022 History of Presen t illness Narrative PRE-OPERATIVE ASSESSMENT SERVICE DATE: 10/09/2022 HISTORY OF PRESENT ILLNESS: Patient is a 22 year old female here for a consult from Dr. Alvaro Magana for pre-operative evaluation for right temporal lobectomy with tumor resection to be performed on October 25, 2022 22 year old right handed woman with a multiyear history of episodes of transient altered mental status with memory loss. Imaging read as a right mesial temporal lesions concerning for DNET. Also with chiari 1 malformation on MRI. PAST MEDICAL HISTORY Diagnosis Date Brain tumor (HCC) Depression Family history of seizure disorder Hiatal hernia History of heavy periods 2014 Low back strain 10/2015 [facility]/ PT PMH - PAST MEDICAL HISTORY OF 2006 normal color vision PAST HOSPITALIZATIONS: None PAST SURGICAL HISTORY Procedure Laterality Date EGD 08/28/2020 Hiatal hernia, Variable villous abnormality with associated epithelial lymphocytosis, Gastric oxyntic-type mucosa with no pathologic diagnostic abnormality KNEE SURGERY HX Right 2020 ACL repair PAST SURGICAL HISTORY OF Left ACL repair FAMILY HISTORY Problem Relation Age of Onset No Known Problems Mother No Known Problems Father No Known Problems Sister No Known Problems Brother Heart Maternal Uncle Enlarged heart other (Anneurism) Maternal Grandmother Heart Maternal Grandfather age 62 [place] No Known Problems Paternal Grandmother No Known Problems Paternal Grandfather Diabetes Other mggfa Cancer Other MGGF Anesthesia Problems No Family History PATIENT SOCIAL HISTORY: Patient lives at home with with her father during the summer. Lives at the dorm at [employer] during the school year ETOH: No Tobacco use: No Any christianity beliefs that may be relevant to care surrounding surgical procedure? No ANESTHESIA COMPLICATIONS: No reported complications related to a previous exposure to anesthesia or a difficult intubation. MEDS AND ALLERGIES REVIEWED. LATEX ALLERGY: No REVIEW OF SYSTEMS: GENERAL: No weight loss, malaise or fevers HEENT: No changes in hearing or vision, no nose bleeds or other nasal problems NECK: Negative for lumps, goiter, pain and significant neck swelling RESPIRATORY: Negative for cough, hemoptysis, wheezing, COPD, dyspnea or shortness of breath CARDIOVASCULAR: Negative for chest pain, leg swelling, hypertension, CHF or palpitations GI: No nausea, vomiting, or diarrhea : No history of dysuria, frequency or incontinence PRINT PRODUCTION COORDINATOR: Negative for abnormal vaginal bleeding, abnormal vaginal discharge MUSCULOSKELETAL: Negative for joint pain or swelling, back pain or muscle pain SKIN: Complains of a rash present for the last several months under the axilla bilaterally. Rash is not pruritic. PSYCH: Positive for diagnosis of bipolar disorder, type II HEMATOLOGY/LYMPHOLOGY: Negative for prolonged bleeding, bruising easily or swollen nodes ENDOCRINE: Negative for cold or heat intolerance, polyuria, polydipsia and goiter NEURO: SEE HPI ID: No prior history of abscess, cellulitis or MRSA infection. PHYSICAL EXAM: BP 118/60 Pulse 76 Temp 36.4 C (97.5 F) (Temporal) Resp 16 Ht 160 cm (5' 3) Wt 88 kg (194 lb) LMP 09/04/2022 (Exact Date) BMI 34.37 kg/m GENERAL: alert and active in no apparent distress, nontoxic-appearing HEAD: Normocephalic, atraumatic EYES: Steady central gaze without nystagmus. Conjunctiva are clear without injection. No preseptal edema or erythema. No scleral icterus is present EARS: External auditory canals are free of lesions bilaterally. Tympanic membranes are intact bilaterally without evidence of fluid in the middle ear space NOSE/SINUSES : Nares normal without discharge OROPHARYNX:moist mucous membranes, tonsils without hypertrophy and no exudates present. Loose dentition or obvious dental caries NECK: Negative for anterior or posterior cervical adenopathy. No masses are present in the suprasternal notch. No supraclavicular adenopathy is present. CARDIOVASCULAR : Regular Rate and Rhythm without murmurs or clicks, well perfused LUNGS: clear to auscultation, excellent air exchange, negative for stridor or stertor easy respirations without grunting/flaring/retracting. ABDOMEN : Abdomen is soft, nontender, without organomegaly or masses. MUSCULOSKELETAL: Extremities with FROM and no problems identified. EXTREMITIES: No clubbing, cyanosis, or edema. NEUROLOGICAL : Face is symmetric. Facial motion is symmetric. Tongue is midline. Muscle tone normal and Normal age appropriate gait. Rapid alternating movements are smooth in the hands without dysdiadochokinesia. Strength is 5/5 in the upper and lower extremities bilaterally and symmetrically. SKIN : Negative for jaundice. Negative for petechiae or purpura. Normal skin turgor. Discrete erythematous papules with a discrete central pustule present under the axilla bilaterally. IMPRESSION: Fabian Menjivar is cleared for surgery. PLAN: N.p.o. orders per anesthesia and neurosurgery. So he has a separate problem outside of her preoperative clearance. She has a mild folliculitis of the axilla bilaterally. Recommend Hibiclens wash daily for the next 10 days. chlorhexidine (HIBICLENS) 4 % external liquid LABS/TESTS ORDERED: NONE Should anything change in the patient's clinical condition, the patient must be re-evaluated prior to the procedure. This note has been forwarded to the surgeon via electronic transmission. SIGNATURE: Dionte Fu MD PATIENT NAME: Fabian Menjivar DATE: October 09, 2022 TIME: 10:14 AM ANESTHESIA DAY OF SURGERY NOTES: Significant changes in patient's condition: YES / NO If yes, please specify Medications taken today: Anesthetic risks, benefits, alternatives, personnel and consent discussed: YES / NO Patient agrees to proceed: YES / NO Pre-anesthesic exam & evaluation updated and completed: YES / NO Anesthetic Plan: Airway Assessment: Pain Management Plan: ASA class: Pager: Date: Anesthesiologist Signature documented in this encounter [facility] 09-27-2022 Miscellaneous Notes Pt notified. Chelsy Galeana LPN Completed. Lottie Moser APRN.CNM See refill request. Patient leaves for vacation on Friday and is out. Thank you. documented in this encounter [facility] 07-30-2022 Miscellaneous Notes New consult VV 08/14/2022 w/Dr. Kolby Mccann RN Left voicemail for patient to call back and discuss scheduling Consult with Forwarded for review JOAN ABREU RN documented in this encounter [facility] 07-26-2022 Miscellaneous Notes Noted. Will schedule surgery once initial surgical consultation has been completed. Per Iftikhar Peters, patient prefers September timeframe Belen Valdez RN Spoke with patient and scheduled 08/14 VV with Please see mychart from 07/25, Patient is interesting in scheduling September Patient management conference recommendation: Resective surgery right anteromesial with removal of the tumor, amygdala and hippocampus Patient / family's decision: Agree to proceed per [facility] recommendation as above . She will Additional testing needed: None Schedule neurosurgery visit with: Dr. Magana documented in this encounter [facility] 07-25-2022 Miscellaneous Notes Patient's request for medication is as follows Requested Prescriptions Signed Prescriptions Disp Refills dicyclomine (BENTYL) 10 mg capsule 90 capsule 0 Sig: Take one before dinner. May repeat at bedtime, as needed. Authorizing Provider: DIONTE FU Order entered - please phone pharmacy and notify patient. Dionte Fu MD Mychart message sent that patient due for an office visit Last WCC: greater than one year ago Last ADHD / Med Check visit: greater than 6 months ago Verify RX Benefits Completed Last medication refill date: 06/18/22 Requesting 30 day supply Retail pharmacy updated: Completed Patient aware RX will be sent to pharmacy. No need to notify patient. Immunizations due: MENINGOCOCCAL B: Consider based on risk(1 of 2 - Risk Bexsero 2-dose series) Never done HEPATITIS C SCREENING Never done HIV SCREENING Never done COVID-19 VACCINE(4 - Booster for Moderna series) due on 06/07/2021 GC (GONORRHEA) SCREENING (18-24) due on 12/11/2021 CHLAMYDIA SCREENING (18-24) due on 12/11/2021 INFLUENZA(1) due on 12/27/2021 DEPRESSION ASSESSMENT Never done Rosie Lockett RN documented in this encounter [facility] 07-25-2022 Miscellaneous Notes The following approved medication requests have been transmitted electronically. Requested Prescriptions Signed Prescriptions Disp Refills levETIRAcetam (KEPPRA) 500 mg tablet 60 tablet 5 Sig: Take 1 tablet by mouth twice daily Authorizing Provider: IFTIKHAR CAVANAUGH APRN.CNP documented in this encounter [facility] 07-22-2022 History of Presen t illness Narrative Fabian Renner Bere [id number] July 22, 2022 Type of encounter: VIRTUAL VISIT The patient consented to the VV using the [employer] platform I have communicated my name and active licensure. The patient's identity and physical location were verified at the time of this visit. Either the patient or their legal automobile sales representative has been informed of the risks and benefits of -- and alternatives to -- treatment through a remote evaluation and consents to proceed with the evaluation remotely. EPILEPSY PATIENT MANAGEMENT CONFERENCE - RECOMMENDATIONS Please see full report of the PM[facility] discussion dated 07/22/2022 for further details. I met with the patient and discussed the recommendations from patient management conference. 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 Although the patient has failed only one ASM, but the presence of a potentially pro-epileptic lesion, in the setting of a concordant semiology and ictal EEG is an indication for epilepsy surgery. The group unanimously recommended a right anteromesial temporal resection with removal of the amygdala/hippocanpus and surrounding cortical structures. These recommendations were shared with the patient and her father during today's visit. Patient management conference recommendation: Resective surgery right anteromesial with removal of the tumor, amygdala and hippocampus Patient / family's decision: Agree to proceed per [facility] recommendation as above . She will Additional testing needed: None Schedule neurosurgery visit with: Dr. Magana I spent 30 minutes in the visit, with more than 50% of the total [id number] time of the visit in counseling / coordination of care. Vicky Zavala MD July 22, 2022 1:24 PM documented in this encounter [facility] 07-18-2022 Miscellaneous Notes ordered Patient request for medication is as follows: Requested Prescriptions Pending Prescriptions Disp Refills Drospirenone-Ethinyl Estradiol (LORYNA, 28,) 3-0.02 mg per tablet 28 tablet 1 Sig: Take 1 tablet by mouth once daily. Last seen: 2020 Please approve the above prescription(s) to electronically send to pharmacy. Jeanette Rodrigues RN documented in this encounter [facility] 07-12-2022 History of Presen t illness Narrative Patient requested to cancel her appointment right before the appointment due to being busy with a school related assignment. documented in this encounter [facility] 07-04-2022 Miscellaneous Notes Spoke with pharmacy MDL processed through Chelsy Roa Received approval for Nayzilam from [employer]. Approval Dates: 07/04/22-07/04/23. REF #: [id number] Approval uploaded to [employer]. PA via [facility] Fabian Menjivar (Duarte: [id number]) - [id number] Nayzilam 5MG/0.1ML solution Status: PA Request Created: July 03, 2022 [id number] Sent: July 04, 2022 determination pending Chelsy Roa Prior Authorization Needed: Received by: Fax Requested by (pharmacy name): [facility] Phone number: [phone] Name of medication: Nayzilam Strength and dosage: 5mg/ Use 1 spray in one nostril as needed for seizures lasting > 5 minutes or >=3 seizures in 8 hours. May repeat dose in alternate nostril after 10 minutes based on response and tolerability. Insurance company name and phone #: [facility] [place]: [id number] Patient ID: PCN #: BIN#: Group #: Patient of Dr. Zavala Forwarded to nurse. documented in this encounter [facility] 07-04-2022 History of Presen t illness Narrative Images from the original note were not included. TRANSITION CARE MANAGEMENT (TCM) INITIAL CONTACT Dr. Zavala/RONNI Called and spoke with pt regarding hospital d/c. Pt states that she is doing well. No seizures since coming home. Reviewed medications. Pt is taking medication as prescribed. Follow up with Dr. Zavala on 07/24/22. Pt aware of appt. Pt states that she is still seeing Dr. Fu for PCP, but is difficult with her school schedule to get to [place] for appt. Advised to schedule a WCC to discuss transition to adult medicine or she can establish with a provider in a more convenient location for her. Pt receptive. First Attempt: Called to touch base about patient's most recent hospitalization. No answer. Left message requesting the family call this RN directly at [phone] Initial contact with patient post discharge, spoke to pt. Patient identified by name and . TRANSITION CARE MANAGEMENT: No flowsheet data found. SUMMARY: -Pt discharged from [facility] [id number] on 07/03/22. -Follow up appointment on Appointments for Next 60 Days Date Time Provider Location Dept Phone 07/05/2022 8:00 AM [facility]UR [facility] [phone] 07/05/2022 8:45 AM [facility] [phone] 07/05/2022 9:45 AM [facility] [phone] 07/12/2022 2:00 PM KANG BUENROSTRO [facility] MAJOR [phone] 07/24/2022 1:00 PM NAJM, IMROSA M [facility] [phone] . -Medication review done Reviewed with pt. -Admitted for: Seizure-like activity CONCERNS: none NEW MEDICATIONS: * lamoTRIgine 25 mg tablet Commonly known as: LaMICtal Start taking on: July 04, 2022 Take 1 tablet by mouth twice daily. Follow the titration schedule given in your hospital discharge instructions for a goal dose of 100 mg twice daily by 09/05/22 * lamoTRIgine 25 mg tablet Commonly known as: LaMICtal Start taking on: August 01, 2022 Take 1 tablet by mouth twice daily. Take 25 mg in the AM & 50 mg in the PM starting 08/01/22 and increase per titration schedule to 100 mg twice daily by 09/05/22 NAYZILAM 5 mg/spray (0.1 mL) nasal spray Use 1 spray in one nostril as needed for seizures lasting > 5 minutes or >=3 seizures in 8 hours. May repeat dose in alternate nostril after 10 minutes based on response and tolerability. Signed by: Francisca Weiner PA-C Generic drug: midazolam MEDS HELD/DISCONTINUED: none BRIEF HOSPITAL COURSE: No d/c summary, H&P from Francisca Weiner PA-C 07/01/22 CHIEF COMPLAINT: spells of altered mentation Patient Major Comorbidities: right mesial temporal lobe lesion (dysembryoplastic neuroepithelial tumor) and Chiari 1 malformation, Celiac disease, SOO, Bipolar 2, OCD PRESENT ILLNESS: Fabian Menjivar is a 21 year old right handed woman with a history of right mesial temporal lobe lesion and Chiari 1 malformation, celiac disease SOO, Bipolar 2, and OCD who presents evaluation of spells concerning for seizures. Episodes started ~age 16 and occurred 1-3x/week (prior to starting LEV) lasting 2-3 minutes; she was seizure-free after starting LEV in late March 2022 until 06/29/22 when she had a typical seizure + convulsions. Episodes consist of abdi vu aura (with or without seizure), autonomic symptoms, and altered awareness/loss of memory. 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 At this time will admit to EMU for video EEG and classification of episodes to determine further treatment. SEIZURE HISTORY: Excerpt from [facility] w/ Dr. Wheat 04/17/22 (Dr. Zavala, attending): Fabian Menjivar is a 21 year old right handed woman with a history of celiac disease and anxiety disorder. She is here for evaluation of spells of altered mentation in the setting of brain lesion. Beginning freshman/sophomore year of high school (approximately 16 years old) she began having these episodes. She remembers her first episode in highschool. She was looking in the mirror straightening her hair. She noticed that she looked very sweaty and then pale and had a familiar feeling. She felt frightened and her heart was racing. She didn't know if she lost time. She has continued to have these episode since that time. They can be triggered by familiar sights and smells(such as a childhood perfume she used to have). When they first started she would see a lady, she did not know who she was but it was the same lady every time and she felt familiar. She no longer has this vision. She sees or smells it and then has a feeling like this happened before. She would then get nauseated, sweaty and pale. She feels like her heart is racing. She can have a conversation with someone and seem normal but won't be able to remember anything from this afterwards. She would be scared during episodes and have an impending sense of doom. She has never fallen to ground or shaken with this. She remains conscious but is unaware it is happening. The aura can last up to 10 minutes followed by the loss of awareness lasting up to five minutes. Following the episodes she would get a severe headache. These would occur up to 2-3 times per day, but sometimes only one per day. There would then be a 2-3 week gap between clusters of episodes. She may be able to tell in the morning when events will happen because she feels weird (I feel weird, or like i'm not real. She has been having these since age 16 but only recently sought care because they were causing her difficulty with her college work. They have been at the same frequency the entirety of having them. 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 She was started on levetiracetam 500 mg BID and increased to 750 mg BID but this made her lethargic and she was decreased back to 500 mg BID. She has not had an episode since being started on levetiracetam. 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 It was noted that she was seeing epilepsy soon with EMU admission and they recommended follow up for discussion of resection vs AED with close monitoring. They felt that the Chiari malformation was asymptomatic at this time and ordered repeat MRI brain. She had no episodes in childhood. She has no other risk factors for seizures except for one cousin with a childhood seizure disorder that has resolved(they report she had petit mal seizures). She did start kindergarten at age 7 as she required 2 years of preschool(not because of learning problems) but has had no milestone concerns. She has not had any episodes since starting Levetiracetam about one month ago, although notes that it may be that she is still just between clusters. On the medication she feels like she is very lethargic(sleeping up to 12 hours a day), zoned out, like she is having blurry vision, and that she is losing weight. ... Fabian Menjivar is a 21 year old right handed woman with a history of celiac disease and anxiety disorder who presents evaluation of spells of abdi vu and altered mentation. Episodes at this time are very concerning for seizure, consisting of a sensation of abdi vu and impending doom followed by period of her being pale and sweaty with loss of memory. 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 She was started on levetiracetam 500 mg BID and has been doing well with no further episodes. At this time will admit to EMU for video EEG and classification of episodes to determine further treatment. CURRENT SEIZURE TYPES: Type 1: Onset: ~ age 16 Aura: I feel weird, or like i'm not real. Abdi-vu triggered by familiar sights and smells (such as a childhood perfume she used to have) Lasts 1-10 min w/ or w/o seizure Description: Autonomic symptoms (nausea, diaphoretic, pallor, hot, heart racing, fear, sense of impending fear), alter awareness. She is able to carry on conversations but cannot recall the conversation later. Duration: 2-3 minutes Frequency: 1-3/week prior to LEV; can have 2-3 weeks seizure freedom. 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 No previous EEG RISK FACTORS FOR SEIZURES: - Significant head trauma: No - TELEPHONE CLERK Infection: No - Other pre-existing TELEPHONE CLERK disease (example - tumor, vascular disease): Yes, right mesial temporal lobe lesion (dysembryoplastic neuroepithelial tumor) and Chiari 1 malformation - brain injury: No - Developmental Delay: No - Febrile Seizures No - Family history of seizures: Yes, paternal cousin childhood epilepsy - Other relevant systemic disease (example - tumor, autoimmune disorder): No AND DEVELOPMENT HISTORY: normal CURRENT AEDs (Anti-Epileptic Drugs): LEV 500 mg Time patient took last dose of AEDs 07/01/2022 AM The patient's side effects to the current medications: at 750 mg BID, she was lethargic PRIOR ANTICONVULSANT HISTORY: none CURRENT MEDICATIONS Current Facility-Administered Medications Medication Dose Route Frequency NaCl 0.9% iv flush bag 20 mL INTRAVENOUS PRN acetaminophen 325-650 mg tab(s) (TYLENOL) 325-650 mg ORAL q 4 H PRN LORazepam 2 mg injection (ATIVAN) 2 mg INTRAVENOUS q 5 MIN PRN midazolam (PF) 5 mg injection (VERSED) 5 mg INTRAMUSCULAR q 24 H PRN diphenhydrAMINE 25 mg (BENADRYL) 25 mg ORAL q 8 H PRN dicyclomine 20 mg cap(s) (BENTYL) 20 mg ORAL BID hydrOXYzine HCl 10 mg tab(s) (ATARAX) 10 mg ORAL BID [START ON 07/02/2022] ARIPiprazole 5 mg tab(s) (ABILIFY) 5 mg ORAL DAILY [START ON 07/02/2022] Drospirenone-Ethinyl Estradiol 3-0.02 mg tab 1 tablet tab(s) (LUCIANO 28) 1 tablet ORAL DAILY [START ON 07/02/2022] FLUoxetine 20 mg cap(s) (PROzac) 20 mg ORAL DAILY ALLERGIES ALLERGIES No Known Allergies PAST MEDICAL HISTORY PAST MEDICAL HISTORY Diagnosis Date Brain tumor (HCC) Depression Family history of seizure disorder Hiatal hernia History of heavy periods 2015 Low back strain 10/2015 [facility]/ PT PMH - PAST MEDICAL HISTORY OF 2006 normal color vision PAST SURGICAL HISTORY PAST SURGICAL HISTORY Procedure Laterality Date EGD 08/28/2020 Hiatal hernia, Variable villous abnormality with associated epithelial lymphocytosis, Gastric oxyntic-type mucosa with no pathologic diagnostic abnormality KNEE SURGERY HX Right 2020 ACL repair PAST SURGICAL HISTORY OF Left ACL repair FAMILY HISTORY FAMILY HISTORY Problem Relation Age of Onset No Known Problems Mother No Known Problems Father No Known Problems Sister No Known Problems Brother Heart Maternal Uncle Enlarged heart other (Anneurism) Maternal Grandmother Heart Maternal Grandfather age 62 [place] No Known Problems Paternal Grandmother No Known Problems Paternal Grandfather Diabetes Other mggfa Cancer Other MGGF Anesthesia Problems No Family History SOCIAL HISTORY Social History Tobacco Use Smoking status: Never Smokeless tobacco: Never Vaping Use Vaping Use: Never used Substance Use Topics Alcohol use: Yes Comment: every other weekend Drug use: Yes Types: Marijuana Comment: weekends SOCIAL HISTORY: -Lives in [place], [place] -Patient lives alone? 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 Yes REVIEW OF SYSTEMS: GENERAL: No weight loss, malaise or fevers HEENT: No changes in hearing or vision, no nose bleeds or other nasal problems NECK: Negative for lumps, goiter, pain and significant neck swelling RESPIRATORY: Negative for cough, hemoptysis, wheezing, COPD, dyspnea or shortness of breath CARDIOVASCULAR: Negative for chest pain, leg swelling, hypertension, CHF or palpitations GI: Negative for abdominal discomfort, blood in stools or black stools, change in bowel habit, heart burn and Positive for nausea with seizures : No history of dysuria, frequency or incontinence MUSCULOSKELETAL: Negative for joint pain or swelling, back pain or muscle pain SKIN: Negative for lesions, rash, and itching PSYCH: Positive for anxiety: HEMATOLOGY/LYMPHOLOGY: Negative for prolonged bleeding, bruising easily or swollen nodes NEURO: SEE HPI Objective GENERAL EXAMINATION: GENERAL EXAMINATION: BP 113/73 Pulse 94 Temp 36.4 C (97.5 F) (Oral) Resp 16 Ht 157.5 cm (5' 2) Wt 82.9 kg (182 lb 12.8 oz) LMP 04/01/2022 SpO2 97% BMI 33.43 kg/m General Appearance: This is a obese built FEMALE HEENT: There are no facial dysmorphic features. Skin: There is no stigmata for neurocutaneous disorders. Neck: The neck is supple. Heart: RRR. No obvious murmur. Lungs: The lungs are clear to auscultation. Abdomen: The abdomen is benign, soft, flat, non-tender, no masses, normal bowel sounds. Extremities: CORTES x 4 NEUROLOGICAL EXAMINATION: Mental Status: A&O x 3 The pupils were 4mm symmetrical, round, and reactive to light and accommodation. The visual montelongo were intact to confrontation. The ocular ductions were full. There was no evidence for gaze evoked nystagmus. The visual pursuits were smooth with normal saccadic eye movements. Facial sensations were intact bilaterally. There was no evidence for facial asymmetry. Hearing was normal bilaterally and the tongue and palate were in midline. Sternomastoids and upper trapezius intact. Muscle tone examination showed normal tone and there was no pronator drift. Muscle strength testing revealed 5/5 both upper and lower. There was no evidence for postural or action tremor. There was no dysmetria seen found on finger-nose testing. Rapid alternating movements were normal bilaterally. There was no evidence for sensory deficits. DATA: Diagnostic tests reviewed for today's visit: Admission labs pending QUALITY CHECKLIST: Lines, Drains, and Airways Line Duration Peripheral 07/01/22 1300 Short Left Forearm 20 Gauge <1 day Reviewed lines and needs to be continued: REASONS: PIV for seizure rescue IV access Current restraint orders: None Assessment ASSESSMENT & PLAN (ACTIVE HOSPITAL PROBLEMS) Seizure-like activity (HCC) POA: Yes Generalized anxiety disorder POA: Yes Celiac disease POA: Yes Bipolar 2 disorder (HCC) POA: Yes Mixed obsessional thoughts and acts POA: Yes Obesity, Class I, BMI 30-34.9 POA: Status not on file Chiari malformation type I (HCC) POA: 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 Episodes started ~age 16 and occurred 1-3x/week (prior to starting LEV) lasting 2-3 minutes; she was seizure-free after starting LEV in late March 2022 until 06/29/22 when she had a typical seizure + convulsions. Episodes consist of abdi vu aura (with or without seizure), autonomic symptoms, and altered awareness/loss of memory. 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 At this time will admit to EMU for video EEG and classification of episodes to determine further treatment. Plan: - Continuous vEEG for seizure monitoring - ASM plan: LEV 500 mg BID held on admission 3/6 PM - Seizure precautions, up with assistance - Neurochecks and vitals Q4H - Seizure rescue plan: Ativan 2 mg IV for seizure lasting longer than 3 minutes or 3 or more seizures in 8 hours (If no IV access:) Versed 5 IM for seizure lasting longer than 3 minutes or 3 or more seizures in 8 hours - Pending labs: Admission labs - DVT ppx: Mobilization - Per Dr. Wheat: - Continue levetiracetam 500 mg BID until EMU admission, pending results consider change to lamotrigine -Neuropsych testing during EMU stay -Consider LOBO during EMU stay -Schedule for PMC after EMU eval and workup complete #Celiac disease - Gluten-free diet - Continue Bentyl #SOO, #OCD, #Bipolar 2 - Continue Abilify, Prozac, and PRN Atarax - SW assessment Plan of care discussed with Provider, RN, Patient . SIGNATURE: Francisca Weiner PA-C PATIENT NAME: Fabian Menjivar DATE: July 01, 2022 TIME: 3:55 PM documented in this encounter [facility] 07-02-2022 History of Presen t illness Narrative DATE:July 02, 2022 PT. NAME: Fabian Menjivar [facility]#: [id number] IRB #: [id number] PROTOCOL: Epilepsy mechanisms and outcomes biospecimen bank: data registry. Federal Law Clerk: Leilani Mcgregor, PhD. [facility] personal financial advisor for study related questions: Fawn Maynard Subject continues to give consent for participation and for procedures related to study YES. Were there changes made to the informed consent since the last visit? NO. If yes, were changes reviewed and explained to subject? N/A Was a new copy of the informed consent signed, placed in the chart, placed in the study file and was a copy given to the patient? N/A Subject ID Band in place. yes Time: 11:00AM Blood drawn with vacutainer and labs drawn per protocol. Butterfly removed after blood draw and secured with sterile gauze. Patient tolerated procedure well. Alisa Kirkland, Research Coordinator documented in this encounter [facility] 07-01-2022 History of Past i llness Narrative Problem Noted Date Resolved Date Obesity, Class I, BMI 30-34.9 07/01/2022 OPENED IN ERROR 12/31/2021 12/31/2021 documented as of this encounter (statuses as of 10/16/2022) [facility]03-06-2023 History of Past illness Narrative* Problem Noted Date Resolved Date Obesity, Class I, BMI 30-34.9 07/01/2022 OPENED IN ERROR 12/31/2021 12/31/2021 documented as of this encounter (statuses as of 10/23/2022) [facility] History of Past illness Narrative* Problem Noted Date Resolved Date Obesity, Class I, BMI 30-34.9 07/01/2022 OPENED IN ERROR 12/31/2021 12/31/2021 documented as of this encounter (statuses as of 10/24/2022) [facility] History of Past illness Narrative* Problem Noted Date Resolved Date Obesity, Class I, BMI 30-34.9 07/01/2022 OPENED IN ERROR 12/31/2021 12/31/2021 documented as of this encounter (statuses as of 10/24/2022) [facility] History of Past illness Narrative* Problem Noted Date Resolved Date Obesity, Class I, BMI 30-34.9 07/01/2022 OPENED IN ERROR 12/31/2021 12/31/2021 documented as of this encounter (statuses as of 10/25/2022) [facility] History of Past illness Narrative* Problem Noted Date Resolved Date Obesity, Class I, BMI 30-34.9 07/01/2022 OPENED IN ERROR 12/31/2021 12/31/2021 documented as of this encounter (statuses as of 10/31/2022) [facility] History of Past illness Narrative* Problem Noted Date Resolved Date Obesity, Class I, BMI 30-34.9 07/01/2022 OPENED IN ERROR 12/31/2021 12/31/2021 documented as of this encounter (statuses as of 11/01/2022) [address]06-2023 History of Past illness Narrative* Problem Noted Date Diagnosed Date Resolved Date Obesity, Class I, BMI 30-34.9 07/01/2022 10/09/2022 OPENED IN ERROR 12/31/2021 12/31/2021 documented as of this encounter (statuses as of 11/21/2022) [address]06-2023 History of Past illness Narrative* Problem Noted Date Diagnosed Date Resolved Date Obesity, Class I, BMI 30-34.9 07/01/2022 10/09/2022 OPENED IN ERROR 12/31/2021 12/31/2021 documented as of this encounter (statuses as of 11/26/2022) [address]06-2023 History of Past illness Narrative* Problem Noted Date Diagnosed Date Resolved Date Obesity, Class I, BMI 30-34.9 07/01/2022 10/09/2022 OPENED IN ERROR 12/31/2021 12/31/2021 documented as of this encounter (statuses as of 12/03/2022) [address]-2023 History of Past illness Narrative* Problem Noted Date Diagnosed Date Resolved Date Obesity, Class I, BMI 30-34.9 07/01/2022 10/09/2022 OPENED IN ERROR 12/31/2021 12/31/2021 documented as of this encounter (statuses as of 12/05/2022) [address]-2023 History of Past illness Narrative* Problem Noted Date Diagnosed Date Resolved Date Obesity, Class I, BMI 30-34.9 07/01/2022 10/09/2022 OPENED IN ERROR 12/31/2021 12/31/2021 documented as of this encounter (statuses as of 12/13/2022) [address]06-2023 History of Past illness Narrative* Problem Noted Date Diagnosed Date Resolved Date Obesity, Class I, BMI 30-34.9 07/01/2022 10/09/2022 OPENED IN ERROR 12/31/2021 12/31/2021 documented as of this encounter (statuses as of 12/26/2022) [address]06-2023 History of Past illness Narrative* Problem Noted Date Diagnosed Date Resolved Date Obesity, Class I, BMI 30-34.9 07/01/2022 10/09/2022 OPENED IN ERROR 12/31/2021 12/31/2021 documented as of this encounter (statuses as of 01/04/2023) [address]06-2023 History of Past illness Narrative* Problem Noted Date Diagnosed Date Resolved Date Obesity, Class I, BMI 30-34.9 07/01/2022 10/09/2022 OPENED IN ERROR 12/31/2021 12/31/2021 documented as of this encounter (statuses as of 01/06/2023) [address]06-2023 History of Past illness Narrative* Problem Noted Date Diagnosed Date Resolved Date Obesity, Class I, BMI 30-34.9 07/01/2022 10/09/2022 OPENED IN ERROR 12/31/2021 12/31/2021 documented as of this encounter (statuses as of 02/05/2023) [address]06-2023 History of Past illness Narrative* Problem Noted Date Diagnosed Date Resolved Date Obesity, Class I, BMI 30-34.9 07/01/2022 10/09/2022 OPENED IN ERROR 12/31/2021 12/31/2021 documented as of this encounter (statuses as of 02/11/2023) [facility] History of Past illness Narrative* Problem Noted Date Diagnosed Date Resolved Date Obesity, Class I, BMI 30-34.9 07/01/2022 10/09/2022 OPENED IN ERROR 12/31/2021 12/31/2021 documented as of this encounter (statuses as of 02/14/2023) [address]06-2023 History of Past illness Narrative* Problem Noted Date Diagnosed Date Resolved Date Obesity, Class I, BMI 30-34.9 07/01/2022 10/09/2022 OPENED IN ERROR 12/31/2021 12/31/2021 documented as of this encounter (statuses as of 03/11/2023) [address]06-2023 History of Past illness Narrative* Problem Noted Date Diagnosed Date Resolved Date Obesity, Class I, BMI 30-34.9 07/01/2022 10/09/2022 OPENED IN ERROR 12/31/2021 12/31/2021 documented as of this encounter (statuses as of 06/04/2023) [facility] History of Past illness Narrative* Problem Noted Date Diagnosed Date Resolved Date Obesity, Class I, BMI 30-34.9 07/01/2022 10/09/2022 OPENED IN ERROR 12/31/2021 12/31/2021 documented as of this encounter (statuses as of 06/19/2023) [facility] History of Past illness Narrative* Problem Noted Date Diagnosed Date Resolved Date Obesity, Class I, BMI 30-34.9 07/01/2022 10/09/2022 OPENED IN ERROR 12/31/2021 12/31/2021 documented as of this encounter (statuses as of 06/19/2023) [facility] History of Past illness Narrative* Problem Noted Date Diagnosed Date Resolved Date Obesity, Class I, BMI 30-34.9 07/01/2022 10/09/2022 OPENED IN ERROR 12/31/2021 12/31/2021 documented as of this encounter (statuses as of 07/18/2023) [facility]-28-2023 History of Present illness Narrative* Jaylen Ruano MD - 06/25/2022 8:26 AM EST Images from the original note were not included. DEPARTMENT OF ORTHOPAEDICS Consultation as a request of Dr. Chang Chief Complaint: Right hip pain HISTORY OF PRESENT ILLNESS: This is a pleasant 21 year old female, who presents today with a chief complaint of right hip pain. Injury/ Trauma: Denies PAIN EVALUATION 06/24/2022 1909 Pain Level: 7 Pain Location: Hip-Right Description: Aching;Pressure;Sharp;Sore;Stiffness;Throbbing;Tightness Duration Amount of Time: 3 Duration Units: Months Frequency: Continuous Intervention/Comfort measure: Medication;Relaxation;Cold;Emotional Support/Reassurance;Exercise;Heat;Massage;Positioning Pain location: anterior, groin Duration of pain/ symptoms: 2-3 months Frequency: intermittent Intensity: mild to moderate Quality: dull and aching She Denies nocturnal pain. She denies numbness, tingling, or electric shocks. She reports popping and clicking. 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 Activity level: collegiate, sport/activity: lacrosse (however she has since stopped playing) PAST MEDICAL HISTORY Diagnosis Date Brain tumor (HCC) Depression Family history of seizure disorder Hiatal hernia History of heavy periods 2015 Low back strain 10/2015 [facility] PT PMH - PAST MEDICAL HISTORY OF 2006 normal color vision PAST SURGICAL HISTORY Procedure Laterality Date EGD 08/28/2020 Hiatal hernia, Variable villous abnormality with associated epithelial lymphocytosis, Gastric oxyntic-type mucosa with no pathologic diagnostic abnormality KNEE SURGERY HX Right 2020 ACL repair PAST SURGICAL HISTORY OF Left ACL repair Current Outpatient Medications Medication Sig Dispense Refill dicyclomine (BENTYL) 10 mg capsule Take one before dinner. May repeat at bedtime, as needed. 90 capsule 0 ARIPiprazole (ABILIFY) 5 mg tablet Take 1 tablet by mouth once daily. 30 tablet 1 FLUoxetine (PROZAC) 10 mg capsule Take 1 capsule by mouth once daily for 7 days, THEN 2 capsules once daily. 67 capsule 1 hydrOXYzine HCl (ATARAX) 10 mg tablet Take 1 tablet by mouth three times daily as needed. 90 tablet1 levETIRAcetam (KEPPRA) 500 mg tablet Take 1 tablet by mouth twice daily. 60 tablet 2 Drospirenone-Ethinyl Estradiol (LUCIANO 28) 3-0.02 mg per tablet Take 1 tablet by mouth once daily. 28 tablet 11 No current facility-administered medications for this visit. ALLERGIES No Known Allergies FAMILY HISTORY Problem Relation Age of Onset No Known Problems Mother No Known Problems Father No Known Problems Sister No Known Problems Brother Heart Maternal Uncle Enlarged heart other (Anneurism) Maternal Grandmother Heart Maternal Grandfather age 62 [place] No Known Problems Paternal Grandmother No Known Problems Paternal Grandfather Diabetes Other mggfa Cancer Other MGGF Anesthesia Problems No Family History Social History Tobacco Use Smoking status: Never Smokeless tobacco: Never Vaping Use Vaping Use: Never used Substance Use Topics Alcohol use: Yes Comment: every other weekend Drug use: Yes Types: Marijuana Comment: weekends REVIEW OF SYSTEMS: GENERAL: No weight loss, malaise or fevers HEENT: Negative for frequent or significant headaches, No changes in hearing or vision, no nose bleeds or other nasal problems NECK: Negative for lumps, goiter, pain and significant neck swelling RESPIRATORY: Negative for cough, hemoptysis, wheezing, COPD, dyspnea or shortness of breath CARDIOVASCULAR: Negative for chest pain, leg swelling, hypertension, CHF or palpitations GI: No nausea, vomiting, or diarrhea : No history of dysuria, frequency or incontinence PRINT PRODUCTION COORDINATOR: Negative for abnormal vaginal bleeding, abnormal vaginal discharge MUSCULOSKELETAL: Negative for joint pain or swelling, back pain or muscle pain SKIN: Negative for lesions, rash, and itching HEMATOLOGY/LYMPHOLOGY: Negative for prolonged bleeding, bruising easily or swollen nodes ENDOCRINE: Negative for cold or heat intolerance, polyuria, polydipsia and goiter RADIOGRAPHS: right AP pelvis, Valdez lateral and false view dated within 1 year revealed no acute processes, fractures, or dislocations. There is a pincer lesion. Osseous and soft tissue structures within normal limits. X-Rays Reviewed and discussed. OTHER STUDIES: Right hip MRI dated within 1 year revealed no acute processes, fractures, or dislocations. There issubtle signal in the anterior superior aspect of her labrum indicative of PHYSICAL EXAM: LMP 06/24/2022 General: Appears stated age, well built, in no apparent distress. Psychiatric: Mood and affect appropriate. Alert and oriented x 3 without evidence of abnormal respiratory effort. Musculoskeletal Exam: Gait normal, Posture: erect and normal. Exam: Right Left Single Leg Trendelenburg Negative Negative Hip flexion 110 110 IR 10 10 ER 60 60 Anterior impingement positive negative Dynamic labral stress positive negative TATUM negative negative Posterior Impingement positive negative WADE negative negative Strength Right Left Supine HF 5/5 5/5 Upright HF 5/5 5/5 Adduction 5/5 5/5 Abduction 5/5 5/5 Tenderness with Palpation: Right Left Greater Troch Positive Negative Gluteus Medius Negative Negative Piriformis Negative Negative PROCEDURE: Not applicable IMPRESSION: (S73.191A) Acetabular labrum tear, right, initial encounter (primary encounter diagnosis) PLAN: 1. Medication: None. 2. Test(s)/Imaging/Referral(s): None. 3. Intervention: Surgical vs non surgical treatment options were discussed. Non surgical treatment options include cortisone injection, activity modification, physical therapy, and more time. Surgical treatment would include right hip arthroscopy to repair her labrum and GIFTY. MRI report does not show a labral tear however her labrum does not look normal and indicative of labrum de bonding on the insertion. Post op recovery timeline and expectations were reviewed with patient. Patient would liketo think it over with her family and she will let us know which way she would like to go. If going down the injection pathway, would like to see her back about 2-3 months after the injection. Patientis on board with the plan and all questions were answered. She will contact the office if there areany questions/issues. 4. Follow-up: Return in about 2 months (around 08/23/2022). Scribe Attestation: By signing my name below, I, JULIANNA Velasco, attest that this documentation has been preparedunder the direction and in the presence of Jaylen Ruano M.D. Electronically Signed:JULIANNA Velasco, June 25, 2022 8:26 AM I agree with the Chief Complaint, ROS, and Past Histories independently gathered by the clinical manager support services and the remaining scribed note accurately describes my personal service to the patient. aJylen Ruano MD [facility] Miscellaneous Notes* Telephone Encounter - Anselmo Moon MD - 06/18/2022 11:04 AM EST SPECIFIC NOTES (if applicable): GENERAL INFORMATION - The listed prescriptions have been signed. If applicable, please notify the patient/family. - Unless noted in the intake documentation, I assume the medications are being used as directed; the patient is doing well; there are no side effects; and there are no undocumented medications or allergies. - This note was created using a speech to text program. There may be some incorrect words, spellings, and punctuation that were missed on review. Anselmo Moon M.D. * Telephone Encounter - Igor Joiner RN - 06/18/2022 8:54 AM EST Patient phones requesting refills as follows: Last visit 05/25/2021 and message sent that needs a visit. Requested Prescriptions Pending Prescriptions Disp Refills dicyclomine (BENTYL) 10 mg capsule 90 capsule 0 Sig: Take one before dinner. May repeat at bedtime, as needed. Please review and advise. Igor Joiner RN documented in [facility] encounter[facility] Instructions* Patient Instructions* Kang Buenrostro APRN.CNP - 06/14/2022 3:26 PM EST Munir Ambrosio, It was good to talk with you today. Below is a summary of the plan that we discussed during your appointment for reference. Of course, if you have any questions or concerns do not hesitate to reach out to me via a message or call. Best, Kang Buenrostro APRN.CNP PLAN AND FOLLOW UP: YOU SHOULD SEEK IMMEDIATE MEDICAL ATTENTION AT THE NEAREST EMERGENCY DEPARTMENT OR BY CALLING 911, IF ANY OF THE FOLLOWING OCCURS: - New or worsening thoughts of harming yourself (suicidal thoughts) or others (homicidal thoughts) - Not feeling safe at home or worrying about your ability to remain safe at home If you are having thoughts of harming yourself or others, then you can: - Call the National Suicide Hotline at 5-848-YTVGHUP ( ) or 2-902-960-TALK (8728) - Text 4HYLM to 799988 Medication Update: Abilify 5 mg - take 1 tablet once daily. Prozac 10 mg - take 1 capsule once daily for 7 days, then take 2 capsules once daily after that. Continue to utilize hydroxyzine as needed for anxiety. Next appointment: --Schedule in 4 weeks or sooner if needed -- You may call the department appointment line at [phone] to schedule your appointment. -- Please call my nurse Rossy at [phone] or send me a message in [employer] with any questions or concerns between appointments. documented in this encounterThe [facility] History of Present illness Narrative* Kang Buenrostro APRN.CNP - 06/14/2022 2:57 PM EST Images from the original note were not included. PSYC FOLLOW UP - PSYCHIATRIC PROGRESS NOTE DIAGNOSIS: Bipolar 2 disorder OCD GAF: -60-51 Moderate symptoms or moderate difficulty in social, occupational or school functioning. TREATMENT PLAN: Increase Abilify to help with her mood and address her intrusive thoughts. Start Prozac to help with her anxiety symptoms. Utilize hydroxyzine as needed for anxiety. Encouraged to find a therapist and schedule an appointment for individual psychotherapy. Follow up in 4 weeks. Medication Update: Abilify 5 mg - take 1 tablet once daily. Prozac 10 mg - take 1 capsule once daily for 7 days, then take 2 capsules once daily after that. Continue to utilize hydroxyzine as needed for anxiety. The effects and side effects of all the medications were reviewed in detail with the patient. She denies any involuntary movement related side effects. Patient is in agreement with the treatment planand aware to reach out with any questions, concerns, or worsening of symptoms prior to the next appointment. CC: Follow up regarding mood and anxiety With the patient consent, visit was performed virtually. HPI: Fabian Menjivar is a 21 year old Female with a history of Bipolar 2 disorder and OCD presenting today for follow-up. Date of last visit: 04/18/2022 Plan from last visit: Increase Abilify to help with her mood and intrusive thoughts. Continue Hydroxyzine at the same dose. Encouraged to engage in self-care. Encouraged to schedule an appointment with a therapist. Follow up in 4 weeks. Today Fabian shares that she has been focusing a lot on doing school work. Takes some time off during the weekend. They are going to wait till the summer semester to do all the testing regarding the seizure activity. Going to school has been tough. She does not enjoy her classes. She does have friends on campus. She would rather do an online program. She feels that she is draining herself. She would like to work in special education in the future. She feels that Abilify has helped but would benefit from a higher dose. She continues to struggle with negative thoughts. Hydroxyzine has helped with her anxiety. She has tolerated the lower does of Keppra better. She has not had any episodes of seizures. Patient was tearful sharing concerns regarding her memory. Anxiety appears to be interfering with her ability to be present. Interval Progress: Slightly worse Risks and benefits of the medication, including any black box warnings, were discussed with the patient. Social History: See HPI PATIENT DATA: Generalized Anxiety Disorder Scale (SOO-7) SOO - 7 SCORES 04/13/2022 05/09/2022 06/13/2022 SOO-7 Score 9 16 20 (0-4) minimal anxiety, (5-9) mild anxiety, (10-14) moderate anxiety, (15-21) severe anxiety Patient Health Questionnaire (PHQ-9) PHQ-9 04/13/2022 05/09/2022 06/13/2022 Score 9 18 20 (0-4) minimal depression, (5-9) mild depression, (10-14) moderate depression, (15-19) moderately severe depression, (20-27) severe depression ROS: General: Negative for fever, malaise, unintentional weight loss HEENT: Negative for recent changes in vision or hearing, no nasal drainage Respiratory: Negative for cough, wheezing or SOB Cardiovascular: Negative for chest pain GI: Negative for nausea, vomiting, change in bowel habits MUSCULOSKELETAL: Negative for acute back or joint pain SKIN: Negative for rash NEURO: Negative for headaches, seizures, focal neurological deficits All other systems negative. VITAL SIGNS: BP Temp Pulse Resp SpO2 MENTAL STATUS EXAMINATION: Appearance: Appropriately groomed, appears stated age Behavior: Appropriately engaged Psychomotor: No psychomotor agitation Cognition Level of Consciousness: Awake and alert. No fluctuation in wakefulness. Orientation: Grossly oriented Memory: Intact Attention/Concentration: Good Fund of Knowledge: Able to demonstrate an awareness of current events. Mood: Sad, Anxious Affect: Tearful Speech/Language: Appropriate tone, prosody, shereen, phonetics, and syntax Thought Form: Goal-directed. No loosening of associations. Thought Content: No delusions noted or endorsed. Perceptual Disturbances: Did not appear to respond to auditory stimuli. Safety: Suicidal Ideations: No suicidal ideation, intent or plan. Homicidal Ideations: No homicidal ideation, intent or plan. Insight: Appropriate Judgment: Appropriate I spent a total of 28 minutes on the date of the service which included preparing to see the patient, [id number] patient care, completing clinical documentation, and counseling and educating the patient/family/caregiver, ordering medications/labs. Kang Buenrostro APRN.VENEER MATCHER June 14, 2022 2:57 PM This note was partially generated using Liftopia voice recognition system. Note was reviewed for accuracy. There may be minor misspellings or grammar miscues with Dragon voice recognition. documented in this encounterThe [facility]02-11-2023 Miscellaneous Notes* Allied Health - Madai Peters RT(R) - 06/08/2022 4:40 PM EST Radiology Service Progress Note PATIENT NAME: Fabian Menjivar DATE OF SERVICE: June 08, 2022 TIME: 4:53 PM PATIENT IDENTITY VERIFICATION COMPLETED USING TWO (2) IDENTIFIERS: Name and Date of confirmedby patient verbally and Name and Date of confirmed by identification band. FALL SCREENING: Has the patient had 2 falls in the last year or 1 fall with injury or currently using an Ambulatory Assistive Device (Walker, Cane, Wheelchair, Crutches, etc.)? No PATIENT GENDER DATA: Female. status: : No status: NO. PATIENT RELEVANT IMPLANT DATA REVIEWED: Yes RADIOLOGY DEPARTMENT: MR; Exam(s) Completed: Lower MSK: Hip, right PERIPHERAL IV DATA: Not applicable SIGNED BY: Kushal WARREN(R) RT Ana Paula(R) June 08, 2022 4:53 PM documented in this encounterThe [facility] Of [facility]02-06-2023 Miscellaneous Notes* Telephone Encounter - Hugo Marino RN - 06/03/2022 4:28 PM EST Patient advised in previous MC. Pending Dr. Hernandez's review. Hugo Marino RN, BSN documented in this encounterCleveland [id number] History of Present illness Narrative* Kang Buenrostro APRN.ROSA - 05/16/2022 8:19 AM EST The patient did not log in for her virtual visit today. She did not answer her phone when she was contacted prior to and during the appointment time. documented in this encounterThe [facility] Of [facility]12-27-2022 Miscellaneous Notes* Telephone Encounter - Uriel Shetty PA-C - 04/23/2022 3:04 PM EST The following approved medication requests have been transmitted electronically. Requested Prescriptions Signed Prescriptions Disp Refills levETIRAcetam (KEPPRA) 500 mg tablet 60 tablet 2 Sig: Take 1 tablet by mouth twice daily. Authorizing Provider: URIEL SHETTY PA-C * Telephone Encounter - Hugo Marino RN - 04/23/2022 2:49 PM EST Patient is following with Epilepsy staff. Plan discussed with BM and she feels that they should direct her medication at this time. Patient updated via and message forwarded to Dr. Wheat and epilepsy refill pool. Hugo Marino RN, BSN documented in this encounterThe [facility] Of [facility]12-27-2022 Miscellaneous Notes* Telephone Encounter - Chelsy Galeana LPN - 04/23/2022 8:21 AM EST See pt's mychart refill request. Was last seen in the office on 12/11/20. [facility] Chelsy Galeana LPN documented in this encounterThe University Of [facility] Center12-22-2022 Instructions* Patient Instructions* Kang Buenrostro APRN.CNP - 04/18/2022 9:56 AM EST Munir Ambrosio, It was good to talk with you today. Below is a summary of the plan that we discussed during your appointment for reference. Of course, if you have any questions or concerns do not hesitate to reach out to me via a message or call. Best, Kang Buenrostro APRN.CNP PLAN AND FOLLOW UP: YOU SHOULD SEEK IMMEDIATE MEDICAL ATTENTION AT THE NEAREST EMERGENCY DEPARTMENT OR BY CALLING 911, IF ANY OF THE FOLLOWING OCCURS: - New or worsening thoughts of harming yourself (suicidal thoughts) or others (homicidal thoughts) - Not feeling safe at home or worrying about your ability to remain safe at home If you are having thoughts of harming yourself or others, then you can: - Call the National Suicide Hotline at 5-123-NIBEOZW ( ) or 1-583-707-TALK (3737) - Text 4HOPE to 103108 Medication Update: Abilify 2 mg - take 2 tablets once daily at bedtime. Continue Hydroxyzine at the same dose. Next appointment: --Schedule in 4 weeks or sooner if needed -- You may call the department appointment line at [phone] to schedule your appointment. -- Please call my nurse Rossy at [phone] or send me a message in [employer] with any questions or concerns between appointments. documented in this encounterThe [facility] Of [facility]12-22-2022 History of Present illness Narrative* Kang Buenrostro APRN.CNP - 04/18/2022 9:22 AM EST Images from the original note were not included. PSYC FOLLOW UP - PSYCHIATRIC PROGRESS NOTE DIAGNOSIS: Bipolar 2 disorder OCD GAF: -70-61 Some mild symptoms or some difficulty in social, occupational, or school functioning, but generally functioning pretty well. TREATMENT PLAN: Increase Abilify to help with her mood and intrusive thoughts. Continue Hydroxyzine at the same dose. Encouraged to engage in self-care. Encouraged to schedule an appointment with a therapist. Follow up in 4 weeks. Medication Update: Abilify 2 mg - take 2 tablets once daily at bedtime. Continue Hydroxyzine at the same dose. The effects and side effects of all the medications were reviewed in detail with the patient. She denies any involuntary movement related side effects. Patient is in agreement with the treatment planand aware to reach out to us with any questions, concerns, or worsening of symptoms prior to the next appointment. CC: Follow up regarding mood and anxiety With the patient consent, visit was performed virtually. HPI: Fabian Menjivar is a 21 year old Female with a history of Bipolar 2 disorder and OCD presenting today for follow-up. Date of last visit: 03/25/2022 Plan from last visit: 1. Discontinue Lexapro as patient has not taken it for over 3 months and denied efficacy. 2. Start Abilify to address her mood related symptoms as well as intrusive thoughts. 3. Utilize hydroxyzine as needed to help with anxiety symptoms. 4. Encouraged to schedule an appointment with a therapist. 5. Encouraged to look into a support group for individuals with a tumor diagnosis. 6. Counseled in detail about the risks of using marijuana and encouraged patient to abstain. Today Fabian shares that things have been better. She has been enjoying her break. She has been visiting the providers frequently regarding her brain tumor. She is going for an overnight (3 to 7 day) study to figure out the next course of treatment. The Abilify has been helping with her mood. Hydroxyzine has been helpful in managing her anxiety. It helped manage her anxiety during her exam week. She has noticed a decrease in her energy level. Unsure if it is from Keppra or Abilify. We discussed moving Abilify to bedtime. She quit lacrosse due to her hip injury. She has been engaged in physical therapy. She plans on getting a job when she returns to campus. Last semester went well grade [employer]. She has been noticing that she feels lonely. I don't feel like anyone likes me. She reports that she gets her hopes high. She gives a lot and expects a lot from other people in all her relationships. She only has one group of friends and when they are busy, she feels lonely. Discussed the importance of self-care and love in detail. She plans on getting together with parents for [place] and see friends [place]. Interval Progress: Slightly improved Risks and benefits of the medication, including any black box warnings, were discussed with the patient. Social History: See HPI PATIENT DATA: Generalized Anxiety Disorder Scale (SOO-7) SOO - 7 SCORES 03/05/2022 03/24/2022 04/13/2022 SOO-7 Score 21 21 9 (0-4) minimal anxiety, (5-9) mild anxiety, (10-14) moderate anxiety, (15-21) severe anxiety Patient Health Questionnaire (PHQ-9) PHQ-9 03/05/2022 03/24/2022 04/13/2022 Score 20 15 9 (0-4) minimal depression, (5-9) mild depression, (10-14) moderate depression, (15-19) moderately severe depression, (20-27) severe depression ROS: See HPI General: Negative for fever, malaise, unintentional weight loss HEENT: Negative for recent changes in vision or hearing, no nasal drainage Respiratory: Negative for cough, wheezing or SOB Cardiovascular: Negative for chest pain GI: Negative for nausea, vomiting, change in bowel habits MUSCULOSKELETAL: Negative for acute back or joint pain SKIN: Negative for rash NEURO: Negative for headaches, seizures, focal neurological deficits All other systems negative. VITAL SIGNS: BP Temp Pulse Resp SpO2 MENTAL STATUS EXAMINATION: Appearance: Appropriately groomed, appears stated age Behavior: Appropriately engaged Psychomotor: No psychomotor agitation Cognition Level of Consciousness: Awake and alert. No fluctuation in wakefulness. Orientation: Grossly oriented Memory: Intact Attention/Concentration: Good Fund of Knowledge: Able to demonstrate an awareness of current events. Mood: Sad Affect: Tearful at times Speech/Language: Appropriate tone, prosody, shereen, phonetics, and syntax Thought Form: Goal-directed. No loosening of associations. Thought Content: No delusions noted or endorsed. Perceptual Disturbances: Did not appear to respond to auditory stimuli. Safety: Suicidal Ideations: No suicidal ideation, intent or plan. Homicidal Ideations: No homicidal ideation, intent or plan. Insight: Appropriate Judgment: Appropriate I spent a total of 27 minutes on the date of the service which included preparing to see the patient, [id number] patient care, completing clinical documentation, and counseling and educating the patient/family/caregiver, ordering medications/labs. Kang Buenrostro APRN.CNP April 18, 2022 9:22 AM This note was partially generated using Liftopia voice recognition system. Note was reviewed for accuracy. There may be minor misspellings or grammar miscues with Dragon voice recognition. documented in this encounterThe University Of [facility]12-21-2022 Instructions* Patient Instructions* Teri Wheat, - 04/17/2022 3:47 PM EST SEIZURE PRECUATIONS Please continue to practice seizure precautions and first aid. -No driving. -Please do not climb to high places, such as rooftops, up trees or mountain climbing. -When near water, you should be supervised by an adult or person who is aware of risk of seizures, for example during tub baths, swimming, boating or fishing. -A helmet should be worn when riding a bike. First Aid for a grand mal seizure: -Remain calm and do not panic, call for assistance if needed. -Lower the person safely to the ground and loosen any tight clothing. -Place the person in a side-lying position so any saliva or vomit will easily drain out of the mouth. Actively seizing people are at a increased risk of choking on their saliva or vomit. Do not put any objects such as a tongue depressor or fingers into the mouth. Protect the persons head from injury while they are on their side. -Time the seizure from start to finish so you know how long it lasted (most grand mal seizures are no more than 1 or 2 minutes long). If the seizure is continuing longer than 5 minutes, call the ambulance at 911 for transportation to the nearest Emergency Room. -After a grand mal seizure, people are very sleepy and tired for several minutes or even a couple of hours. They may also complain of headache, nausea and may vomit. Please remember: -Call your doctor if you feel that the severity or number of seizures has changed from baseline. -If you have several grand mal seizures without waking up in-between, please notify your doctor. Seizure safety during sleep: -Always take anti-epileptic medications as prescribed by your doctor. -Objects near the bed may cause injury if someone has a seizure is prone to falling out of bed. Move heavy furniture, floor lamps, night stands and other dangerous objects away from the bed. -Mattresses and pillows should be firm and not soft. All stuffed animals, toys and other objects should be removed from the bed. Blankets can be layered but should be thin, down comforters may be toosoft. -Keep the bed as low to the ground as possible. Some patients with night time seizures may sleep with their mattress on the floor. Others may pad the floor with mats (such as exercise mats used in workout facilities) to pad the floor. -During sleep, keep the bedroom door cracked open so someone can hear if you are having a seizure. Never lock the bedroom door. Some people choose to use baby monitors to observe for seizures at night. -We ask the you keep a record of the seizures you or your child is having. Please do this in the way that works the best for you. We would like to know the number of seizures per day including the date of the seizures, the length of time the seizure lasts, and the intensity of the seizure. If this is a different type of seizure than what you or your child normally has, please document a description and call your doctor. - Also, videos are always helpful. If the seizures are changing in any way, please try to record them on video if possible. This can be done on your cell phone or via a video recorder. This will helpwhen you meet with your doctor. documented in this encounterThe [facility]12-21-2022 History of Present illness Narrative* Teri Wheat DO - 04/17/2022 2:30 PM EST [facility] Patient Name: Fabian GONSALVES Date of : 2000 Referring Provider DO MARQUIS Caro Referring Team, Neurology [phone] INITIAL EPILEPSY CLINIC NOTE 04/17/2022 2:30 PM CHIEF COMPLAINT: No chief complaint on file. HISTORY OF PRESENT ILLNESS Ms. Menjivar is a 21 year old right-handed female [facility] for initial consultation. Handedness: right-handed Age of onset: 16 years Seizure History and Evolution Fabian Menjivar is a 21 year old right handed woman with a history of celiac disease and anxiety disorder. She is here for evaluation of spells of altered mentation in the setting of brain lesion. Beginning freshman/sophomore year of high school (approximately 16 years old) she began having these episodes. She remembers her first episode in highschool. She was looking in the mirror straightening her hair. She noticed that she looked very sweaty and then pale and had a familiar feeling. She felt frightened and her heart was racing. She didn't know if she lost time. She has continued to havethese episode since that time. They can be triggered by familiar sights and smells(such as a childhood perfume she used to have). When they first started she would see a lady, she did not know who she was but it was the same lady every time and she felt familiar. She no longer has this vision. She sees or smells it and then has a feeling like this happened before. She would then get nauseated, sweaty and pale. She feels like her heart is racing. She can have a conversation with someone and seemnormal but won't be able to remember anything from this afterwards. She would be scared during episodes and have an impending sense of doom. She has never fallen to ground or shaken with this. She remains conscious but is unaware it is happening. The aura can last up to 10 minutes followed by the loss of awareness lasting up to five minutes. Following the episodes she would get a severe headache.These would occur up to 2-3 times per day, but sometimes only one per day. There would then be a 2-3 week gap between clusters of episodes. She may be able to tell in the morning when events will happen because she feels weird (I feel weird, or like i'm not real. She has been having these since age 16 but only recently sought care because they were causing her difficulty with her college work. They have been at the same frequency the entirety of having them. 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 She was started on levetiracetam 500 mg BID and increased to 750 mg BID but this made her lethargic and she was decreased back to 500 mg BID. She has not had an episode since being started on levetiracetam. 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 It was noted that she was seeing epilepsy soon with EMU admission and they recommended follow up for discussion of resection vs AED with close monitoring. They felt that the Chiari malformation was asymptomatic at this time and ordered repeat MRI brain. She had no episodes in childhood. She has no other risk factors for seizures except for one cousin with a childhood seizure disorder that has resolved(they report she had petit mal seizures). She didstart kindergarten at age 7 as she required 2 years of preschool(not because of learning problems) but has had no milestone concerns. She has not had any episodes since starting Levetiracetam about one month ago, although notes that it may be that she is still just between clusters. On the medication she feels like she is very lethargic(sleeping up to 12 hours a day), zoned out, like she is having blurry vision, and that she is losing weight. Total # of Current Anti-seizure Medications: 1 Side Effects to Current Anti-seizure Medications: Groggy, lethargic, feels like losing weight, feels like vision is blurry intermittently Seizure Frequency at First Visit: 3 per month Longest Seizure-free Interval: 1 months Number of seizure types: 1 Hx of generalized tonic-clonic seizures: No Tongue bite: No Urine or Bowel Incontinence: No Triggers: Familiar smells, familiar sights Postictal Deficits: No Memory complaints: She feels like she does not have a great memory, does not feel like she has everhad a good memory Status Epilepticus or clusters: Yes Postictal Agitation: No Significant Injuries from Seizures: No Seizure-related driving accidents: No Driving: Yes Lives Alone: Yes ED Visits in Last 3 Months: No Hospitalizations in Last 3 Months: No Highest Level of Education: Some college Current Vocation: 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 Prior Anti-seizure Therapies: Trial Adequacy: Max Daily Dose Achieved: Side Effects: Effectiveness: Comments: Levetiracetam Comorbidities: Minor: Anxiety, Brain Tumor, Bipolar Disorder Episode Description: SEIZURE TYPE 1: Episodes of abdi vu and loss of awareness Onset: 16 Aura: yes She may be able to tell in the morning when events will happen because she feels weird (I feel weird, or like i'm not real. They can be triggered by familiar sights and smells(such as a childhood perfume she used to have). She sees or smells it and then has a feeling like this happened before. Description: She then gets nauseated, sweaty and pale. She feels like her heart is racing. She can have a conversation with someone and seem normal but won't be able to remember anything from this afterwards. She would be scared during episodes and have an impending sense of doom. She has never fallen to ground or shaken with this. She remains conscious but is unaware it is happening. The aura can last up to 10 minutes followed by the loss of awareness lasting up to five minutes. Following the episodes she would get a severe headache. These would occur up to 2-3 times per day, but sometimes only one per day. There would then be a 2-3 week gap between clusters of episodes. Loss of awareness: Duration: Frequency: Last occurred: yes longer than 10 minutes 3 per month February 2022 Patient Entered Data: EPILEPSY SCORE 04/14/2022 11:29 AM 04/13/2022 8:06 AM 03/24/2022 6:18 PM First answer obtained - 02/18/2022 12:19 PM PHQ-9 SCORE - 9 [Mild Depression] 15 [Moderately Severe Depression] - SOO 2 SCORE - - - - SOO 7 SCORE - - - - QOLIE-10 SCORE (0=worst; 100=best QoL - higher scores represent better function) 25 - - - LSSS SCORE (0- no seizures 100- most severe possible seizures) 55 - - - C-SSRS SCREEN - - - - On average, how many hours of sleep do you get in a 24-hour period? - - - - PROMIS Sleep Disturbance T-SCORE - - - 54 [within normal limits] Have you been diagnosed with Sleep Apnea? 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 Other caregivers: Primary Care Provider: Dionte Fu MD Current Outpatient Medications Medication Sig dicyclomine (BENTYL) 10 mg capsule Take one before dinner. May repeat at bedtime, as needed. levETIRAcetam (KEPPRA) 500 mg tablet Take 1 tablet by mouth twice daily for 14 days. ARIPiprazole (ABILIFY) 2 mg tablet Take 1 tablet by mouth once daily. hydrOXYzine HCl (ATARAX) 10 mg tablet Take 1 tablet by mouth three times daily as needed. Drospirenone-Ethinyl Estradiol (LUCIANO 28) 3-0.02 mg per tablet Take 1 tablet by mouth once daily. No current facility-administered medications for this visit. ALLERGIES No Known Allergies PAST MEDICAL HISTORY Diagnosis Date Brain tumor (HCC) Depression Family history of seizure disorder Hiatal hernia History of heavy periods 2014 Low back strain 10/2015 [facility]/ PT PMH - PAST MEDICAL HISTORY OF 2006 normal color vision PAST SURGICAL HISTORY Procedure Laterality Date EGD 08/28/2020 Hiatal hernia, Variable villous abnormality with associated epithelial lymphocytosis, Gastric oxyntic-type mucosa with no pathologic diagnostic abnormality KNEE SURGERY HX Right 2020 ACL repair PAST SURGICAL HISTORY OF Left ACL repair FAMILY HISTORY Problem Relation Age of Onset No Known Problems Mother No Known Problems Father No Known Problems Sister No Known Problems Brother Heart Maternal Uncle Enlarged heart other (Anneurism) Maternal Grandmother Heart Maternal Grandfather age 62 [place] No Known Problems Paternal Grandmother No Known Problems Paternal Grandfather Diabetes Other mggfa Cancer Other MGGF Anesthesia Problems No Family History SOCIAL HISTORY: -Lives in [place], [place] -Patient lives alone? 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 Yes Review of Systems Constitutional: Positive for appetite change and recent unintentional weight change. Negative for chills and fever. HENT: Negative for drooling, dysphonia, hearing loss and trouble swallowing. Eyes: Negative for visual disturbance, double vision, glaucoma, vision loss and visual disturbance. Respiratory: Negative for cough, difficulty breathing and wheezing. Cardiovascular: Negative for chest pain, leg swelling and palpitations. Gastrointestinal: Positive for diarrhea. Negative for abdominal pain, blood in stool, constipation,nausea and vomiting. Endo/Heme/Allergies: Negative for cold intolerance, heat intolerance and thyroid problem. Genitourinary: Positive for polyuria. Negative for difficulty urinating, dysuria, hematuria and kidney stones. Hematologic/Lymphatic: Negative for anemia and bruises/bleeds easily. Allergic/Immunologic: Negative for frequent infections. Musculoskeletal: Positive for arthralgias. Negative for back pain, myalgias, muscle weakness, neck pain and neck stiffness. Skin: Negative for diaphoresis and rash. VITAL SIGNS: BP 120/69 (BP Site: Left Arm, BP Position: Sitting, BP Cuff Size: Large Adult) Pulse 91 Ht 157.5 cm (5' 2) Wt 76.8 kg (169 lb 6.4 oz) LMP 04/01/2022 SpO2 97% BMI 30.98 kg/m General Examination: General: Awake, alert, interactive, no acute distress, good nutritional status, normal development,well-kept General appearance: Awake, alert, interactive, no acute distress, good nutritional status, normal development, well-groomed Skin: No lesions of exposed skin Neck: Supple Lungs: Unlabored breathing on room air Abdomen: Nondistended Neurological Exam Mental Status Alert, fully oriented, attentive, with normal cognition, memory, speech and affect. Cranial Nerves Visual montelongo intact. Pupils reactive. Extraocular movements conjugate and full. No ptosis. No nystagmus. Facial sensation intact. Face symmetric and strong. Palate and tongue normal. XI normal. Motor Examination and Coordination Distance Motor Examination Arms: Well-coordinated symmetrical strong antigravity movements of both arms. Raises arms well above head. Manipulates small objects well. No drift. Rapid alternating movements are symmetrical and normal. No tremor or adventitious movements. No dysmetria on finger-nose testing. No apparent muscle atrophy or deformity/contracture. Legs: Arises easily. Wiggles toes well. No asymmetry of movements. No apparent dysmetria. No apparent muscle atrophy or deformity/contracture. Reflexes Deep tendon reflexes graded by MRC Deep Tendon Reflexes Right Left Biceps 2+ 2+ Brachioradialis 2+ 2+ Patellar 2+ 2+ Sensation Sensation intact to light touch in bilateral face, arms and legs Gait Casual gait normal. IMPRESSION: Fabian Menjivar is a 21 year old right handed woman with a history of celiac disease and anxiety disorder who presents evaluation of spells of abdi vu and altered mentation. Episodes at this time are very concerning for seizure, consisting of a sensation of abdi vu and impending doom followed by period of her being pale and sweaty with loss of memory. 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 She was started on levetiracetam 500 mg BID and has been doing well with no further episodes. At this time will admit to EMU for video EEG and classification of episodes to determine further treatment. Classification Summary PLAN: -Continue levetiracetam 500 mg BID until EMU admission, pending results consider change to lamotrigine -EMU admission -Neuropsych testing during EMU stay -Consider LOBO during EMU stay -Seizure precautions -Follow up after EMU -Schedule for PMC after EMU eval and workup complete I discussed the risks, benefits and alternatives of the medical plan with the patient. Questions were answered. The patient agreed with the plan as discussed. FOLLOW-UP: No follow-ups on file. I spent a total of minutes on the date of the service which included: Teri Wheat DO cc: Primary Care Physician: Dionte Fu MD [id number] [facility] [address] Referring: Neurological [place] Referring Team Lv Hernandez DO Referring Team, Neurology [phone] referring to [facility] [address] [facility] [address] Patient: Ms. Fabian Menjivar [address] [facility] [address] documented in this encounterThe [facility]12[facility] Nurse Note* Olivia Abreu Nh - 04/11/2022 2:29 PM EST Additional intake questions: Has the patient had fever, nausea, vomiting, diarrhea, constipation, fatigue for > 1 week? No Does the patient have a decreased appetite? No Does patient want to see a Superintendent Refuse Disposal? No (yes to any of above refer patient to schedulers for dietitian appointment) ) Does patient have any new or increased numbness or tingling of extremities? No Is patient interested in fertility information? No Does patient need any prescription refills? No Does patient have an advanced directive in place? No, Patient refused referral to Social Work or Resource Center documented in this encounterThe [facility]12-15-[facility]22 History of Present illness Narrative* Bobo Barnhart MD - 04/11/2022 2:25 PM EST Images from the original note were not included. [facility] Treatment Team: N/A: Bobo Barnhart MD The patient is referred by Lv Hernandez DO for neurosurgical evaluation. Final recommendationswill be communicated back to the requesting physician by way of the shared medical records, or letters to requesting physician via US Mail. 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 Some memory loss after the abdi vu. Occurring multiple times a day, feels spaced out during episodes. Has trouble with communication during events. 5 years ago started, abdi vu, pale, sweaty nauseous, lasts about 10-15 mins, still sitting up and can have a conversation during it, headache, nausea, and amnesia after. Happens every few months for about 4 days, every day during those 4 days. She can tell/feel it coming on (feels not real). Can happen 2-3 times per day (not more than 3). Memory loss of that 10-15 mins. Headaches pretty severe,pounding, bifrontal/temporal. Sleep makes it better. Started on Keppra 500 bid a few weeks ago, has not had an episode since then. Otherwise not related to these episodes, no headaches, nausea, vomiting, numbness, tingling, weakness, gait or balance issues, no issues with coordination, no diplopia, no hearing issues, no dysphagia, changes in speech. Has had some changes in her vision (fuzzy) since started Keppra. More frequent urination. Patient is accompanied by mother and father. Hand dominance: right-handed. Past Medical History: PAST MEDICAL HISTORY Diagnosis Date Hiatal hernia History of heavy periods 2014 Low back strain 10/2015 [facility]/ PT PMH - PAST MEDICAL HISTORY OF 2006 normal color vision Past Surgical History: PAST SURGICAL HISTORY Procedure Laterality Date EGD 08/28/2020 Hiatal hernia, Variable villous abnormality with associated epithelial lymphocytosis, Gastric oxyntic-type mucosa with no pathologic diagnostic abnormality KNEE SURGERY HX Right 2020 ACL repair PAST SURGICAL HISTORY OF Left ACL repair Family History: FAMILY HISTORY Problem Relation Age of Onset No Known Problems Mother No Known Problems Father No Known Problems Sister No Known Problems Brother Heart Maternal Uncle Enlarged heart other (Anneurism) Maternal Grandmother Heart Maternal Grandfather age 62 [place] No Known Problems Paternal Grandmother No Known Problems Paternal Grandfather Diabetes Other mggfa Cancer Other MGGF Anesthesia Problems No Family History Social History: Social History Tobacco Use Smoking status: Never Smokeless tobacco: Never Vaping Use Vaping Use: Never used Substance Use Topics Alcohol use: Yes Comment: every other weekend Drug use: Yes Types: Marijuana Comment: weekends Medications: levETIRAcetam (KEPPRA) 500 mg tablet Take 1 tablet by mouth twice daily for 14 days. ARIPiprazole (ABILIFY) 2 mg tablet Take 1 tablet by mouth once daily. hydrOXYzine HCl (ATARAX) 10 mg tablet Take 1 tablet by mouth three times daily as needed. Drospirenone-Ethinyl Estradiol (LUCIANO 28) 3-0.02 mg per tablet Take 1 tablet by mouth once daily. dicyclomine (BENTYL) 10 mg capsule Take one before dinner. May repeat at bedtime, as needed. Allergies: ALLERGIES No Known Allergies Review of Systems: Constitutional: Negative for fever and recent unintentional weight change. HENT: Negative for hearing loss, loss of smell and loss of taste. Musculoskeletal: Negative for arthralgias, muscle weakness, unsteady gait and arthritis. Eyes: Negative for visual change and diplopia. Respiratory: Negative for cough, shortness of breath, obstructive sleep apnea syndrome and recent pneumonia. Gastrointestinal: Negative for abdominal pain, nausea, vomiting and dysphagia. Psychiatric: Negative for hallucinations, nervous/anxious, sleep disturbance and depression. Neurological: Negative for double vision. See HPI Objective BP 124/71 Pulse 100[md notified[ Temp 97.9 Resp 18 Ht 5' 2.795 (1.60m) Wt 172 lb 3.2 oz (78.1kg) SpO2 100% LMP 04/01/2022 BMI 30.70 kg/(m^2). Physical Examination: Neurological: General: No focal deficit present. Mental Status: She is alert and oriented to person, place, and time. Sensory: Sensation is intact. Motor: Motor function is intact. No pronator drift. Motor Strength Assessment UE Bicep Tricep Delt Pulmonology Physician HI Right 5/5 5/5 5/5 5/5 5/5 Left 5/5 5/5 5/5 5/5 5/5 LE Hip Knee Knee Plantar Dorsi EHL Flex Flex Extend Flex Flex Right 5/5 5/5 5/5 5/5 5/5 5/5 Left 5/5 5/5 5/5 5/5 5/5 5/5 Coordination: Coordination is intact. Gait: Gait normal. Deep Tendon Reflexes: Reflexes are normal and symmetric. Babinski sign absent on the right side. Babinski sign absent on the left side. Reflex Scores: Tricep reflexes are 2+ on the right side and 2+ on the left side. Bicep reflexes are 2+ on the right side and 2+ on the left side. Brachioradialis reflexes are 2+ on the right side and 2+ on the left side. Patellar reflexes are 2+ on the right side and 2+ on the left side. Achilles reflexes are 2+ on the right side and 2+ on the left side. Cranial Nerves CN II: Visual acuity is normal. Visual montelongo full to confrontation. CN III, IV, : Extraocular movements intact bilaterally. Normal lids and orbits bilaterally. Pupils equal round and reactive to light bilaterally. CN V: Facial sensation is normal. CN VII: Full and symmetric facial movement. CN VIII: Hearing is normal. CN IX, X: Palate elevates symmetrically CN XI: Shoulder shrug strength is normal. CN XII: Tongue midline without atrophy or fasciculations. Constitutional: Appearance: She is normal weight. HENT: Head: Normocephalic and atraumatic. Mouth/Throat: Mouth: Mucous membranes are moist. Pharynx: Oropharynx is clear. Eyes: General: Lids are normal. Extraocular Movements: Extraocular movements intact. Pupils: Pupils are equal, round, and reactive to light. Pulmonary: Breath sounds: Normal breath sounds. Abdominal: General: Abdomen is flat. Palpations: Abdomen is soft. Psychiatric: Mood and Affect: Mood normal. Behavior: Behavior normal. Thought Content: Thought content normal. Judgment: Judgment normal. Data Review: Karnofsky performance status: 90 - Able to carry on normal activity, minor signs or symptoms of disease. ECOG performance status: 0 - Fully active, able to carry on all pre-disease performance without restriction. PHQ depression alert addressed with patient: No Labs: CMP CMP Latest Ref Rng & Units 05/12/2020 SODIUM 136 - 144 mmol/L 141 SODIUM, MAJOR 136 - 145 mmol/L - SODIUM, MAJOR 136 - 145 mmol/L - POTASSIUM 3.7 - 5.1 mmol/L 4.3 POTASSIUM, MAJOR 3.5 - 5.1 mmol/L - CHLORIDE 97 - 105 mmol/L 105 CHLORIDE, MAJOR 98 - 107 mmol/L - CO2 22 - 30 mmol/L 24 CO2, MAJOR 21.0 - 32.0 mmol/L - GLUCOSE 74 - 99 mg/dL 93 GLUCOSE, MAJOR 70 - 99 mg/dL - BUN 7 - 21 mg/dL 13 BUN, MAJOR 7 - 18 mg/dL - CREATININE 0.58 - 0.96 mg/dL 0.76 CREATININE, MAJOR 0.6 - 1.0 mg/dL - EGFR-ALL OTHER RACES . >60 EGFR- - >60 PROTEIN, TOTAL 6.3 - 8.0 g/dL 7.7 ALBUMIN 3.9 - 4.9 g/dL 4.7 CALCIUM, MAJOR 8.5 - 10.1 mg/dL - CALCIUM, TOTAL 8.5 - 10.2 mg/dL 10.0 BILIRUBIN, TOTAL 0.2 - 1.3 mg/dL 0.5 AST 13 - 35 U/L 22 ALT 7 - 38 U/L 13 ALKALINE PHOSPHATASE 45 - 87 U/L 31(L) , CBC CBC Latest Ref Rng & Units 05/12/2020 WBC 3.70 - 11.00 k/uL 8.79 RBC 3.90 - 5.20 m/uL 4.43 HEMOGLOBIN 11.5 - 15.5 g/dL 13.5 HEMOGLOBIN, MAJOR 12.0 - 16.0 g/dL - HEMATOCRIT 36.0 - 46.0 % 40.9 MCV 80.0 - 100.0 fL 92.3 MCH 26.0 - 34.0 pG 30.5 MCHC 30.5 - 36.0 g/dL 33.0 RDW-CV 11.5 - 15.0 % 12.9 PLATELETS 150 - 400 k/uL 379 MPV 9.0 - 12.7 fL 9.9 BASO% % - ABS NEUT (ANC) 1.45 - 7.50 k/uL - ABS LYMPH 1.00 - 4.00 k/uL - ABS MONO <0.87 k/uL - ABS EOSIN <0.46 k/uL - ABS BASO <0.11 k/uL - DIFF TYPE - - , and BMP BMP Latest Ref Rng & Units 05/12/2020 GLUCOSE 74 - 99 mg/dL 93 BUN 7 - 21 mg/dL 13 CREATININE 0.58 - 0.96 mg/dL 0.76 SODIUM 136 - 144 mmol/L 141 POTASSIUM 3.7 - 5.1 mmol/L 4.3 CHLORIDE 97 - 105 mmol/L 105 CO2 22 - 30 mmol/L 24 ANION GAP 9 - 18 mmol/L 12 CALCIUM, TOTAL 8.5 - 10.2 mg/dL 10.0 eGFR . >60 EGFR- - >60 EGFR-ALL OTHER RACES . >60 EGFR-PEDIATRIC FACTOR - - Final Pathology: NA Imaging: MRI Report MRI BRAIN WO/W IVCON Exam End: 03/18/2022 10:36 AM (Final result) Narrative: * * *Final Report* * * DATE OF EXAM: Mar 18 2022 10:36AM [facility] 0295 - MRI BRAIN WO/W IVCON / PROCEDURE REASON: multiple diagnoses * * * * Physician Interpretation * * * * EXAMINATION: MRI BRAIN WO/W IVCON CLINICAL HISTORY: Recent onset episodes of altered state of awareness, memory loss and abdi vu suggesting seizures. Technique: Coronal and axial LENIN-FLAIR, coronal LENIN-T2, axial diffusion, and high resolution sagittal gradient echo volume acquisition of the brain with coronal reconstructions. Gadolinium enhanced coronal T1 and axial gradient echo volume acquisitions of the brain. None Contrast: 16 mL Dotarem IV Comparison: None RESULT: Acute Change: There is no evidence of an acute intracranial process. Hemorrhage: No clear evidence of prior parenchymal hemorrhage within the constraints of acquisition. Mass Lesion/ Mass Effect: There is relatively large, well-defined soft tissue mass in the mesial right temporal lobe extends from the region of the rhinal sulcus dorsally in the right parahippocampal gyrus, right hippocampal head, and ventral right hippocampal body the adjacent uncus and extends dorsally to the coronal plane of the interpeduncular cistern. This mass is heterogeneously hyperintense on T2 and hypointense on T1 with facilitated diffusion suggesting a multicystic focus as seen in the setting of a DNET. There is minimal if any stippled enhancement in the ventral aspect of the mass. Overall, this measures approximately 2.5 x 2.8 x 1.7 cm in greatest AP, transverse, and CC dimensions, respectively. These findings account for localized effacement of the sulci and compression and cephalad displacement of the overlying amygdala. Hippocampi: The above-described mass clearly infiltrates the head and anterior body of the right hippocampus. 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 The left hippocampus appears to be within normal limits of signal intensity and morphology. Chronic Change: No evidence of focal or regional parenchymal volume loss otherwise. The white matter is within normal limits of signal intensity for the patient's chronologic age. Parenchyma: No significant generalized parenchymal volume loss for age. The brain parenchyma is otherwise within normal limits of signal intensity and morphology. 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 Additional note is made of herniation of the cerebellar tonsils and vermis through the foramen magnum to the C1 level, compatible with a Chiari I malformation. This results in mild compression of the cervical medullary junction. No evidence of syrinx formation in the visualized cervical spinal cord. Ventricles: Relatively small fourth ventricle, related to the Chiari I malformation. Lateral and third ventricles are within normal limits of size and configuration for age. Other: The visualized paranasal sinuses and mastoid air cells are clear. The orbits and extracranial soft tissues are unremarkable. 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 COMMUNICATION: Communicated with LV HERNANDEZ on 03/18/2022 11:58 AM via verbal communication. Maintenance And Engineering Manager: CLAUDIA Transcribe Date/Time: Mar 18 2022 11:41A Dictated by : LACY JOHNS MD This examination was interpreted and the report reviewed and electronically signed by: LACY JOHNS MD on Mar 18 2022 11:58AM EST Data Review: Personal review of medical records: I reviewed the [facility] chart. Personal review of image, tracing or specimen: MRI brain: right mesial temporal lesion within the region of the amydala with local mass effect. 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 Imaging read as a right mesial temporal lesions concerning for DNET. Also with chiari 1 malformation on MRI. Exam unremarkable. Started on Keppra without any further episodes. 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 Typically these lesions can cause seizures that can be difficult to control. AEDs will be managed per epilepsy. Scheduled to see epilepsy and be admitted to EMU for EEGmonitoring. Will likely plan to be discussed at [facility] with recommendations afterward. Can follow up with epilepsy surgeon for discussion to resection vs. AED with close monitoring. In regards to the Chiari malformation, she appears to be asymptomatic at this point from this. Would opt for observation with repeat MRI brain with CISS and CINE flow of the foramen magnum/4th ventricular region, in addition to MRI C spine wo contrast. I spent a total of 60 minutes on the date of the service which included preparing to see the patient, [id number] patient care,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 see BlueSprigt Message. I called patient regarding imaging findings and discussed them with herin person over the phone. I recommend: 1. Consult to neurosurgery, order placed. 2. Prior consult placed to epilepsy, encouraged her to call to schedule 3. Keppra 500 mg BID x7 days, then 750 mg BID thereafter ordered. 4. Seizure precautions discussed. See MyChart encounter for details. documented in this encounterThe [facility]11-21-2022 Progress note* Result Encounter Note - Lv Hernandez DO - 03/18/2022 9:20 AM EST Please see MyChart Message. I called patient regarding imaging findings and discussed them with herin person over the phone. I recommend: 1. Consult to neurosurgery, order placed. 2. Prior consult placed to epilepsy, encouraged her to call to schedule 3. Keppra 500 mg BID x7 days, then 750 mg BID thereafter ordered. 4. Seizure precautions discussed. See MyChart encounter for details. [facility]11-13-2022 Miscellaneous Notes* Telephone Encounter - Kristin Vásquez, AT - 03/10/2022 7:58 PM EST She is taking NSAIDs around the clock. Thank you * Telephone Encounter - Kristin Vásquez AT - 03/07/2022 6:45 PM EST I will follow up and find out. documented in this encounterThe [facility]11-07-2022 Miscellaneous Notes* Telephone Encounter - Helga Maher MD - 03/04/2022 8:00 AM EST ordered * Telephone Encounter - Chelsy Galeana LPN - 03/04/2022 7:02 AM EST Please see pt's mychart refill request. Pt to be assisted in scheduling her yearly exam when home for break over the holidays. Chelsy Galeana LPN documented in this encounterThe [facility]11-04-2022 Instructions* Patient Instructions* Rachel Justin RD - 03/01/2022 3:16 PM EDT Nutrition Intervention 03/01/2022: Modify type and amount of food consumed for meals and snacks: 1. Do not skip meals. 2. Use protein shake 1x per day for breakfast 3. Use the Healthy Plate Method of portion control for lunch and dinner 4 oz lean meat (fish, chicken, pork tenderloin, turkey, seafood, eggs/cheese 1/2 plate non starchy vegetables (salad, greens, cabbage, spinach, brussel sprouts, broccoli, carrots, celery, peppers, green beans, cauliflower) 1 cup starch/starchy vegetables (corn, peas, bautista beans, winter squash, sweet potato, rice, pasta, potato) 4. Aim for optimal physical activity with a goal of 150 min of aerobic exercise per week. Include 2-3 days of strength exercises 2-3 times/week. 5. Drink 64 ounces per day water. Nutrition Monitoring & Evaluation: adherence to above recommendations Criteria: Patient update Need for Follow up: as needed documented in this encounterThe [facility]11-04-2022 History of Present illness Narrative* Rachel Justin RD - 03/01/2022 3:00 PM EDT The [facility] Nutrition Therapy: Virtual Consult - Initial Assessment This visit was performed virtually due to the COVID-19 epidemic as an effort to protect patients and minimize exposure. Consent from patient received to conduct visit virtually. This Team Access Model visit is a virtual encounter. It required patient-provider interaction for the medical decision making as documented below. Patient states reason for visit: weight management Activity: Patient's exercise is: Activities of Daily Living: Active 50% of the day. 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 Patient dislikes milk, eggs, ricotta cheese. Breakfast - skips (reports that she doesn't like breakfast foods) Snack - skips Lunch (12 pm) - soup, salad OR deli sandwich Snack - skips OR chips Dinner (4-7:30 pm; varied) - rice/GF pasta OR frozen meal/pizza OR frozen chicken on a wrap Snack - skips OR ice cream OR bag of Skittles Beverages - water (>64 oz), pop (x3 weekly) Vitamins/Minerals - None ANTHROPOMETRICS Height per patient: 62 Weight per patient: 185# Most recent height and weight per EPIC Height: Last 1 Encounter Ht Readings: Date: Ht: 02/21/2022 157.5 cm (5' 2) Weight: Last 1 Encounter Wt Readings: Date: Wt: 02/21/2022 80.7 kg (178 lb) There is no height or weight on file to calculate BMI. Resting Metabolic Rate: 1531 Malnutrition Screening Significant unintentional weight loss? No Eating less than 75% of usual intake for more than 2 weeks? No Potential Signs of Inflammation: no identifiable sources RECOMMENDED MALNUTRITION DIAGNOSIS: NO MALNUTRITION IDENTIFIED Educational materials provided: Gluten Free Diet for Celiac Disease and Healthy Lunch/Dinner Plate and Healthy Snacks Patient presents for initial nutrition Virtual Consult to discuss weight management. Patient PMH includes Celiac disease, SOO. Diet recall reveals inconsistent eating patterns due to skipped breakfast, minimal intake during the day leading to higher portion eating at night. Overall inadequate protein and fiber intake. Fluids adequate. Nutrition Diagnosis: Behavioral-Environmental: Food and nutrition related knowledge deficit, related to, lack of prior exposure to information , as evidenced by client has no prior knowledge of need for food and nutrition - related information. Nutrition Intervention 03/01/2022: Modify type and amount of food consumed for meals and snacks: 1. Do not skip meals. 2. Use protein shake 1x per day for breakfast 3. Use the Healthy Plate Method of portion control for lunch and dinner 4 oz lean meat (fish, chicken, pork tenderloin, turkey, seafood, eggs/cheese 1/2 plate non starchy vegetables (salad, greens, cabbage, spinach, brussel sprouts, broccoli, carrots, celery, peppers, green beans, cauliflower) 1 cup starch/starchy vegetables (corn, peas, bautista beans, winter squash, sweet potato, rice, pasta, potato) 4. Aim for optimal physical activity with a goal of 150 min of aerobic exercise per week. Include 2-3 days of strength exercises 2-3 times/week. 5. Drink 64 ounces per day water. Nutrition Monitoring & Evaluation: adherence to above recommendations Criteria: Patient update Need for Follow up: as needed Referred/Supervised by: Self/Barbara MNT Billing Type: Initial Assess/15 min 1 unit Signed by: Rachel Justin RDN, VALERIE, MFN documented in this encounterThe [facility]10-27-[facility]22 Instructions* Patient Instructions* Lv Hernandez DO - 02/21/2022 1:38 PM EDT Today we discuss your events of alteration of consciousness with a abdi vu sense of impending doom prior to the events. We discuss that these events could be seizure related events or they may be dueto abnormal changes in blood pressure regulation such that you are nearly fainting. At this point more data is needed. I recommend: MRI brain with and without contrast without medication to relax you. EEG (electroencephalogram), 1 hour study, please be sleep deprived going into the study. Autonomic test battery including tilt table (main campus) to check for blood pressure regulation abnormalities. Consult has been placed to epilepsy center, you can schedule at your convenience and cancel if not needed in the end. I will let you know results on MyChart. Lets plan to see you back if all studies are normal. documented in this encounterThe [facility]10-27-2022 History of Present illness Narrative* Lv Hernandez DO - 02/21/2022 1:00 PM EDT Images from the original note were not included. [facility] New Patient Evaluation Consulting Provider: Iftikhar Bolanos [id number] [facility] [id number] Individuals who were included in, or assisted with the encounter were: Fabian Menjivar Lv Hernandez DO Chief Complaint/Issues: Fabian Menjivar is a 21 year old female seen in the [facility] for: AMS, feeling episodes of abdi vu during the day, followed by headache. Some memory loss after the abdi vu. Occurring multiple times a day, feels spaced out during episodes. Has trouble with communication during events. Diagnosis/Issues: Relevant Medical Issues: Celiac disease in patient , her brother and her sister Hiatal hernia SOO Strong family history of DM Current Treatment and Relevant Treatment History: [place] [facility] OCP Imaging/Studies/Labs: No TELEPHONE CLERK imaging HPI: Today, new F patient encounter, concerning for seizures. Beginning sophomore year of high school,she started noting Abdi Vu sensation. It is triggered by sights, sounds, smells. The odd sensation of abdi vu lasts about 30 minutes prior to the events, described as she gets very nauseous, sweaty, and loss of memory for about 5-10 minutes. Witnesses say she gets pale, sweat drips off her. Following the events she gets a severe headache. Sometimes it happens 2-3 times a day, sometimes only once a day. There tends to be 2-3 week gap between clusters of events. No childhood staring episodes. No olfactory hallucinations. She does feel very scared during events, like impending sense of doom. No vision changes. She has gaps of time in her memory. She can even tell often when awakening in the morning if she is going to have an event. It happens at any unpredictable time. It has happened when playing La[place]rosse, but most often happens when sitting in class lecture and just listening. No tongue bite, no loss of bowel or bladder control. No syncope during events. She is able to have a full conversation during these events. She is able to produce coherent speech, able to write text messages that make sense. Alcohol: on weekends only, two days per week, drinks about 5 drinks per day on the weekend Infections: No congenital infections. She does get strep throat often Stroke: No known stroke Aneurysm: No family Hx of brain aneurysm Trauma: No history of concussions Tumor: No known tumors Sleep: Gets good restorative sleep, awakens refreshed Fam Hx: First cousin (father's sister's child) had childhood seizure disorder Gestation hx: Started kindergarten at age 7 (required two years of preschool), no milestone concerns, graduated High School. General Examination: LMP 09/24/2021 She is alone. General appearance: Awake, alert, interactive, no acute distress, good nutritional status, normal development, well-groomed Skin: Rash: absent Pigmentation: absent HEENT: Head: normocephalic, no dysmorphism Eyes: normal Oropharynx: normal Neck: Carotid bruit: absent Movements: free Lymphadenopathy: absent Extremities: Deformity/contracture: absent Distal pulses: present Edema: absent Trophic change: absent Spine: Deformity: absent Heart: Regular S1 S2 normal Lungs: Clear to auscultation Abdomen: Soft, nontender Neurological Exam Mental Status Alert, fully oriented, attentive, with normal cognition, memory, speech and affect. Cranial Nerves Visual montelongo: intact to confrontation Extraocular movements: conjugate and full Nystagmus: absent Pupils: R 2mm minimal reactive L 2mm briskly reactive equal reactive Ptosis: absent Trigeminal: V1-V3 intact, V motor normal Facial: face symmetric and strong Palate: central, normal movement, no dysphonia Tongue: normal bulk, strength, and rapid movements, no fasciculations XI: normal sternocleidomastoids and trapezius Motor Examination and Coordination Neuromuscular Examination Axial Muscles Ptosis: R: none L: none Face-eye closure: normal Face-mouth closure: normal Tongue: normal Tongue atrophy: no Extremity Muscles Upper Extremity Right Left Shoulder abduction 5 5 Elbow flexion 5 5 Elbow extension 5 5 Wrist extension 5 5 Finger flexion/chief ophthalmic technician 5 5 Finger extension 5 5 First dorsal interosseous 5 5 Abductor digiti minimi 5 5 Abductor pollicis brevis 5 5 Lower Extremity Right Left Hip flexion 5 5 Knee flexion 5 5 Knee extension 5 5 Ankle plantarflexion 5 5 Ankle dorsiflexion 5 5 Extensor hallucis longus 5 5 Flexor digitorum longus 5 5 Reflexes Deep tendon reflexes graded by [facility] Deep Tendon Reflexes Right Left Biceps 1+ 2 Brachioradialis 1+ 1+ Achilles 1+ 1+ Plantar Downgoing Downgoing Gait Arises easily. Casual gait normal. Can rise on heels and toes. Tandem: Negative Romberg: Negative Assessment & Plan 02/21/2022 - General Neurology, Lv Hernandez, DO ASSESSMENT Patient is 21-year-old right-handed female who presents for her first neurologic visit. She is experiencing episodes of d j vu followed by headaches, amnestic to each event in retrospect. Witnesses say that she is pale and diaphoretic during events. The d j vu lasts for about 30 minutes and actual events in which she gets nauseous, sweaty, and loses her memory lasts about 5-10 minutes. Her history is significant for celiac's disease, hiatal hernia, and general anxiety disorder. Both her brother and sister also have celiac's disease, and her father and another sibling have diabetes. No overt risks for seizure disorder. She does have 1 first cousin that had a childhood seizure disorder that has resolved and is not treated. She is very frightened by these events, feeling an impending sense of doom when the d j vu starts. She can often tell when she awakens in the morning when events will happen. I am concerned about possible seizure disorder. No known history of absence seizures as a child. Alternatively these could be dysautonomia events with blood pressure fluctuations although this is less likely because these events have happened while participating in lacrosse games. I do like to get an MRI of the brain with and without contrast, EEG, dysautonomia testing, and haveplaced a consult to the epilepsy center. I will communicate results on [employer]. PLAN At this point more data is needed. I recommend: 1. MRI brain with and without contrast without medication to relax you. 2. EEG (electroencephalogram), 1 hour study, please be sleep deprived going into the study. 3. Autonomic test battery including tilt table (main campus) to check for blood pressure regulationabnormalities. 4. Consult has been placed to epilepsy center, you can schedule at your convenience and cancel if not needed in the end. No diagnosis found. No follow-ups on file. Data Review Objective Current Outpatient Medications Medication Sig dicyclomine (BENTYL) 10 mg capsule Take one before dinner. May repeat at bedtime, as needed. escitalopram oxalate (LEXAPRO) 20 mg tablet Take 1 tablet by mouth once daily Drospirenone-Ethinyl Estradiol (LUCIANO 28) 3-0.02 mg per tablet Take by mouth. No current facility-administered medications for this visit. 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, Gastric oxyntic-type mucosa with no pathologic diagnostic abnormality KNEE SURGERY HX Right 2020 ACL repair PAST SURGICAL HISTORY OF Left ACL repair Social History Tobacco Use Smoking status: Never Smokeless tobacco: Never Vaping Use Vaping Use: Never used Substance Use Topics Alcohol use: Yes Comment: every other weekend Drug use: No FAMILY HISTORY Problem Relation Age of Onset No Known Problems Mother No Known Problems Father No Known Problems Sister No Known Problems Brother Heart Maternal Uncle Enlarged heart other (Anneurism) Maternal Grandmother Heart Maternal Grandfather age 62 [place] No Known Problems Paternal Grandmother No Known Problems Paternal Grandfather Diabetes Other mggfa Cancer Other MGGF Anesthesia Problems No Family History Review of Systems Gastrointestinal: Positive for nausea. Allergic/Immunologic: Positive for autoimmune disease. Psychiatric: Positive for confusion and decreased concentration. Lab and Test Review: Results for orders placed or performed in visit on 05/01/21 COVID WITH FLUA+B, ROUTINE Specimen: OTHER; Nasal Swab Result Value Ref Range COVID 19 Source [employer] UPPER RESPIRATORY TRACT SWAB Influenza A PCR Negative for Influenza A by RT PCR Influenza B PCR Negative for Influenza B by RT PCR COVID 19 Result [employer] (A) Negative for COVID19 (SARS CoV2) by RT-PCR or equivalent method. Positive for COVID19 (SARS CoV2) by RT-PCR or equivalent method. Outside Data/Labs: Subjective Patient-Entered Data: 02/14/22 - GENERAL NEUROLOGY SCORES PROMIS 10 09/19/2020 09/18/2021 In general, would you say your health is: Good Fair In general, would you say your quality of life is: Very good Good In general, how would you rate your physical health? Good Fair In general, how would you rate your mental health, including your mood and your ability to think? Good Good In general, how would you rate your satisfaction with your social activities and relationships? Good Good To what extent are you able to carry out your everyday physical activities such as walking, climbing stairs, carrying groceries, or moving a chair? Moderately Moderately In general, please rate how well you carry out your usual social activities and roles. (This includes activities at home, at work and in your community, and responsibilities as a parent, child, spouse, employee, friend, etc.) Good Poor How would you rate your pain on average? 4 7 How would you rate your fatigue on average? Mild None How often have you been bothered by emotional problems such as feeling anxious, depressed or irritable? Sometimes Always PROMIS Adult Short Form-Global Health Score (Physical) 42.3 39.8 (Fair) PROMIS Adult Short Form-Global Health Score (Mental) 45.8 38.8 (Fair) No flowsheet data found. SLEEP APNEA SCORE 09/19/2020 Probability of moderate-severe sleep apnea (%) SAPS V2 2.61 (Sleep study not recommended) No flowsheet data found. No flowsheet data found. I spent a total of 74 minutes on the date of the service which included preparing to see the patient, [id number] patient care, completing clinical documentation, obtaining and/or reviewing separately obtained history, performing a medically appropriate examination, counseling and educating the pat ient/family/caregiver, ordering medications, tests, or procedures, independently interpreting results (not separately reported), and care coordination (not separately reported). Lv Hernandez DO documented in this encounterThe [facility]10-21-2022 Miscellaneous Notes* Telephone Encounter - Lopez Srivastava RN - 02/15/2022 11:52 AM EDT [employer] message sent to patient Lopez Srivastava RN * Telephone Encounter - Azra Canales APRN.CNP - 02/15/2022 9:39 AM EDT Please contact patient regarding appointment scheduled for tomorrow. Fabian scheduled an appt with me for tomorrow, 02/16/22 via [employer]. The notes for the appt state anxiety medication, renew and increase dosage. Fabian is on the max dosage of lexapro and has already tried zoloft. At this point, I would not be able to prescribe an additional medication, but would recommend that she see psychiatry. I discussed this with her PCP, Dr. Fu, and he would also recommend that she see psychiatry at this point. She can keep the appt, but we would only be entering a pyschiatry referral. I would not be making any medication changes. If she prefers, she can cancel this appt and go ahead and schedule with ROSA Pan, our adult psychiatrist. If it would be helpful to see someone closer to her college, we could also try to assist in scheduling with psychiatry in [place] or another nearby location. Thank you. Azra Canales APRN.VENEER MATCHER documented in this encounterThe [facility]09-26-2022 Miscellaneous Notes* Telephone Encounter - Rossy Fried LPN - 01/21/2022 3:26 PM EDT Mychart message sent, patient was trying to contact a provider closer to school. Had medication check with PCP 12/26 -but patient cancelled. Rossy Fried LPN * Telephone Encounter - Jen Greene LPN - 01/07/2022 2:45 PM EDT Left message for patient to call the office. * Telephone Encounter - Igor Joiner RN - 12/17/2021 8:46 AM EDT Last [facility]: greater than one year ago Last ADHD / Med Check visit: 04/09/2021 and sent message the needs medication check. Verify RX Benefits Completed Last medication refill date: 08/02/2021 Requesting 30 day supply Retail pharmacy updated: Completed Patient aware RX will be sent to pharmacy. No need to notify patient. Immunizations due: MENINGOCOCCAL B: Consider based on risk(1 of 2 - Risk Bexsero 2-dose series) Never done HEPATITIS C SCREENING Never done HIV SCREENING Never done GC (GONORRHEA) SCREENING (18-24) due on 12/11/2021 CHLAMYDIA SCREENING (18-24) due on 12/11/2021 Igor Joiner RN documented in this encounterThe [facility]09-05-2022 History of Past illness Narrative* Problem Noted Date Resolved Date OPENED IN ERROR 12/31/2021 12/31/2021 documented as of this encounter (statuses as of 12/31/2021) [facility] of Past illness Narrative* Problem Noted Date Resolved Date OPENED IN ERROR 12/31/2021 12/31/2021 documented as of this encounter (statuses as of 01/30/2022) [address]22 History of Past illness Narrative* Problem Noted Date Resolved Date OPENED IN ERROR 12/31/2021 12/31/2021 documented as of this encounter (statuses as of 02/18/2022) [address]22 History of Past illness Narrative* Problem Noted Date Resolved Date OPENED IN ERROR 12/31/2021 12/31/2021 documented as of this encounter (statuses as of 02/20/2022) [address]22 History of Past illness Narrative* Problem Noted Date Resolved Date OPENED IN ERROR 12/31/2021 12/31/2021 documented as of this encounter (statuses as of 02/21/2022) [address]22 History of Past illness Narrative* Problem Noted Date Resolved Date OPENED IN ERROR 12/31/2021 12/31/2021 documented as of this encounter (statuses as of 02/22/2022) [address]22 History of Past illness Narrative* Problem Noted Date Resolved Date OPENED IN ERROR 12/31/2021 12/31/2021 documented as of this encounter (statuses as of 02/28/2022) [address]22 History of Past illness Narrative* Problem Noted Date Resolved Date OPENED IN ERROR 12/31/2021 12/31/2021 documented as of this encounter (statuses as of 03/01/2022) [address]22 History of Past illness Narrative* Problem Noted Date Resolved Date OPENED IN ERROR 12/31/2021 12/31/2021 documented as of this encounter (statuses as of 03/04/2022) [address]22 History of Past illness Narrative* Problem Noted Date Resolved Date OPENED IN ERROR 12/31/2021 12/31/2021 documented as of this encounter (statuses as of 03/14/2022) [address]22 History of Past illness Narrative* Problem Noted Date Resolved Date OPENED IN ERROR 12/31/2021 12/31/2021 documented as of this encounter (statuses as of 03/18/2022) [address]22 History of Past illness Narrative* Problem Noted Date Resolved Date OPENED IN ERROR 12/31/2021 12/31/2021 documented as of this encounter (statuses as of 03/18/2022) [address]22 History of Past illness Narrative* Problem Noted Date Resolved Date OPENED IN ERROR 12/31/2021 12/31/2021 documented as of this encounter (statuses as of 03/18/2022) [address]22 History of Past illness Narrative* Problem Noted Date Resolved Date OPENED IN ERROR 12/31/2021 12/31/2021 documented as of this encounter (statuses as of 03/19/2022) [address]22 History of Past illness Narrative* Problem Noted Date Resolved Date OPENED IN ERROR 12/31/2021 12/31/2021 documented as of this encounter (statuses as of 03/19/2022) [address]22 History of Past illness Narrative* Problem Noted Date Resolved Date OPENED IN ERROR 12/31/2021 12/31/2021 documented as of this encounter (statuses as of 03/30/2022) [address]22 History of Past illness Narrative* Problem Noted Date Resolved Date OPENED IN ERROR 12/31/2021 12/31/2021 documented as of this encounter (statuses as of 04/03/2022) [address]22 History of Past illness Narrative* Problem Noted Date Resolved Date OPENED IN ERROR 12/31/2021 12/31/2021 documented as of this encounter (statuses as of 04/09/2022) [address]22 History of Past illness Narrative* Problem Noted Date Resolved Date OPENED IN ERROR 12/31/2021 12/31/2021 documented as of this encounter (statuses as of 04/15/2022) [address]22 History of Past illness Narrative* Problem Noted Date Resolved Date OPENED IN ERROR 12/31/2021 12/31/2021 documented as of this encounter (statuses as of 04/19/2022) [address]22 History of Past illness Narrative* Problem Noted Date Resolved Date OPENED IN ERROR 12/31/2021 12/31/2021 documented as of this encounter (statuses as of 04/28/2022) [address]22 History of Past illness Narrative* Problem Noted Date Resolved Date OPENED IN ERROR 12/31/2021 12/31/2021 documented as of this encounter (statuses as of 04/29/2022) [address]22 History of Past illness Narrative* Problem Noted Date Resolved Date OPENED IN ERROR 12/31/2021 12/31/2021 documented as of this encounter (statuses as of 05/16/2022) [address]22 History of Past illness Narrative* Problem Noted Date Resolved Date OPENED IN ERROR 12/31/2021 12/31/2021 documented as of this encounter (statuses as of 06/03/2022) [address]22 History of Past illness Narrative* Problem Noted Date Resolved Date OPENED IN ERROR 12/31/2021 12/31/2021 documented as of this encounter (statuses as of 06/04/2022) [address]22 History of Past illness Narrative* Problem Noted Date Resolved Date OPENED IN ERROR 12/31/2021 12/31/2021 documented as of this encounter (statuses as of 06/04/2022) [address]22 History of Past illness Narrative* Problem Noted Date Resolved Date OPENED IN ERROR 12/31/2021 12/31/2021 documented as of this encounter (statuses as of 06/18/2022) [address]22 History of Past illness Narrative* Problem Noted Date Resolved Date OPENED IN ERROR 12/31/2021 12/31/2021 documented as of this encounter (statuses as of 06/19/2022) [address]22 History of Past illness Narrative* Problem Noted Date Resolved Date OPENED IN ERROR 12/31/2021 12/31/2021 documented as of this encounter (statuses as of 06/25/2022) [address]22 History of Past illness Narrative* Problem Noted Date Resolved Date OPENED IN ERROR 12/31/2021 12/31/2021 documented as of this encounter (statuses as of 07/02/2022) [address]22 History of Past illness Narrative* Problem Noted Date Resolved Date OPENED IN ERROR 12/31/2021 12/31/2021 documented as of this encounter (statuses as of 07/04/2022) [address]22 History of Past illness Narrative* Problem Noted Date Resolved Date OPENED IN ERROR 12/31/2021 12/31/2021 documented as of this encounter (statuses as of 07/05/2022) [address]22 History of Past illness Narrative* Problem Noted Date Resolved Date OPENED IN ERROR 12/31/2021 12/31/2021 documented as of this encounter (statuses as of 07/09/2022) [address]22 History of Past illness Narrative* Problem Noted Date Resolved Date OPENED IN ERROR 12/31/2021 12/31/2021 documented as of this encounter (statuses as of 07/12/2022) [address]22 History of Past illness Narrative* Problem Noted Date Resolved Date OPENED IN ERROR 12/31/2021 12/31/2021 documented as of this encounter (statuses as of 07/18/2022) [address] History of Past illness Narrative* Problem Noted Date Resolved Date OPENED IN ERROR 12/31/2021 12/31/2021 documented as of this encounter (statuses as of 07/22/2022) [address]22 History of Past illness Narrative* Problem Noted Date Resolved Date OPENED IN ERROR 12/31/2021 12/31/2021 documented as of this encounter (statuses as of 07/25/2022) [address]22 History of Past illness Narrative* Problem Noted Date Resolved Date OPENED IN ERROR 12/31/2021 12/31/2021 documented as of this encounter (statuses as of 07/25/2022) [address]22 History of Past illness Narrative* Problem Noted Date Resolved Date OPENED IN ERROR 12/31/2021 12/31/2021 documented as of this encounter (statuses as of 07/26/2022) [address]22 History of Past illness Narrative* Problem Noted Date Resolved Date OPENED IN ERROR 12/31/2021 12/31/2021 documented as of this encounter (statuses as of 07/30/2022) [facility] Past illness Narrative* Problem Noted Date Resolved Date OPENED IN ERROR 12/31/2021 12/31/2021 documented as of this encounter (statuses as of 08/16/2022) [facility] illness Narrative* Problem Noted Date Resolved Date OPENED IN ERROR 12/31/2021 12/31/2021 documented as of this encounter (statuses as of 09/27/2022) [facility] of Past illness Narrative* Problem Noted Date Diagnosed Date Resolved Date OPENED IN ERROR 12/31/2021 12/31/2021 documented as of this encounter (statuses as of 03/02/2023) [facility] of Present illness Narrative* Dionte Fu MD - 12/21/2021 3:15 PM EDT No show/cancel documented in this encounterThe [facility]08-03-2022 Miscellaneous Notes* Telephone Encounter - Fawn Pereira - 11/28/2021 4:26 PM EDT PROVIDER CALLED PATIENT documented in this encounterThe [facility] Of [facility]06-13-2022 NoteHNO ID: [id number] Author: Dione Del Real APRN.JACK PRIZER Service: ? Author Type: Nurse Data Base Administrator Type: Anesthesia Procedure Notes Filed: 10/08/2021 2:55 PM Note Text: ANESTHESIOLOGY PROCEDURE NOTE Airway General Information Procedure Start Time/Medication Administration: 10/08/2021 2:50 PM Patient location during procedure: OR Timeout Performed Pre-procedure: timeout performed Consent Obtained: Yes Patient identity confirmed: arm band and patient Staffing JACK PRIZER: Dione Del Real APRN.JACK PRIZER Performed by: REJI Indications and Patient Condition Preoxygenated: yes Patient position: sniffing Manual In-Line Stabilization: No Difficult Mask: No Indications for airway management: anesthesia anesthesia circuit Method: asleep Cricoid Pressure: No Final Airway Details Final airway type: supraglottic airway Number of attempts at approach: 1 Final Supraglottic Airway: i-gel Size 4 Seal Adequate: yes Airway not difficult SIGNATURE: Dione Del Real APRN.CRNA PATIENT NAME: Fabian Menjivar DATE: October 08, 2021 TIME: 2:55 PM CSN: [id number] ID: [id number] Author: Stephanie Ochoa RN Service: Nursing Author Type: Registered Nurse Type: Nursing Progress Note Filed: 10/08/2021 12:50 PM Note Text: 1214 pt brought to [facility]op [facility] History and physical note* Christi Shin PA-C - 09/19/2021 9:33 AM EDT PREANESTHESIA CONSULT CLINIC TELEHEALTH VISIT Patient has been identified by name and date of : Yes This is a virtual visit using [employer] video visit. It require patient-provider interaction for the medical decision making as documented below. Reason for contact: [facility] visit Accompanied by: Self Scheduled Surgery: right knee arthroscopy, fat pad debridement and dissection, cyclops excision andpossible partial lateral meniscectomy. Subjective CHIEF COMPLAINT: Patient presents with: Anesthesia Consult HPI: This is a 21 year old female who presents with right knee pain. Possible lateral meniscus tearand cyclops lesion. Had surgery on right knee last year and injured while playing lacrosse. Recommended for above surgery and elected to proceed. 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, Gastric oxyntic-type mucosa with no pathologic diagnostic abnormality KNEE SURGERY HX Right 2020 ACL repair PAST SURGICAL HISTORY OF Left ACL repair FAMILY HISTORY Problem Relation Age of Onset No Known Problems Mother No Known Problems Father No Known Problems Sister No Known Problems Brother Heart Maternal Uncle Enlarged heart other (Anneurism) Maternal Grandmother Heart Maternal Grandfather age 62 [place] No Known Problems Paternal Grandmother No Known Problems Paternal Grandfather Diabetes Other mggfa Cancer Other MGGF Anesthesia Problems No Family History Social History Tobacco Use Smoking status: Never Smoker Smokeless tobacco: Never Used Vaping Use Vaping Use: Never used Substance Use Topics Alcohol use: No Drug use: No ALLERGIES No Known Allergies MEDICATIONS: Current Outpatient Medications Medication Sig dicyclomine (BENTYL) 10 mg capsule Take one before dinner. May repeat at bedtime, as needed. escitalopram oxalate (LEXAPRO) 20 mg tablet Take 1 tablet by mouth once daily Drospirenone-Ethinyl Estradiol (LUCIANO 28) 3-0.02 mg per tablet Take by mouth. naproxen (NAPROSYN) 500 mg tablet Take 1 tablet by mouth twice daily as needed (for pain). Take with food No current facility-administered medications for this visit. COVID VACCINATION STATUS: Fully vaccinated REVIEW OF SYSTEMS: Pain Assessment: General: No weight loss, malaise or fevers. Neuro: No history of TIA's, stroke, TELEPHONE CLERK tumor, impaired sensorium, hemiplegia, paraplegia or quadraplegia. No neurological symptoms or problems. Respiratory: No history of current cough or dyspnea, or pneumonia in the past 6 weeks. No history of respiratory/pulmonary symptoms or problems. Cardiovascular: No history of HTN requiring medication, no history of angina, CHF, [place], cardiac surgery or stents. Denies rest pain, gangrene or revascularization/amputation for PVD. No history of cardiovascular symptoms or problems. GI: No history of GI symptoms or problems. No history of esophageal varices, recent ascites, or ETOH greater than 2 drinks per day. : No history of dysuria, frequency or incontinence,, stones or chronic kidney disease PRINT PRODUCTION COORDINATOR: Negative for abnormal vaginal bleeding, abnormal vaginal discharge. : Denies, Patient's last menstrual period was 08/11/2021. Endocrine: No history of diabetes. Has not taken steroids within the past 30 days. No history of endocrinological symptoms or problems. Hematology: No history of bleeding or clotting disorder. Pt is not taking anti- coagulation or platelet medications. No history of hematological symptoms or problems. Oncology: No history of CA metastasis, chemo within 30 days, or radiotherapy within 90 days. Has not lost 10% of body wt in 6 months. No history of oncological symptoms or problems. Psych: No history of psychiatric symptoms or problems. Musculoskeletal: Negative for joint pain or swelling, back pain or muscle pain. Skin: Negative for lesions, rash and itching. Objective PHYSICAL EXAM: Ht 5' 2 (1.58m) Wt 180 lb (81.6kg) LMP 08/11/2021 BMI 32.91 kg/(m^2). VIDEO EXAM: (if completed, performed via video enabled technology) GENERAL: alert and appropriate, in no distress, well-hydrated, well nourished and happy, smiling, interactive SKIN: no rash noted HEAD: normocephalic, no abnormality or lesion noted OROPHARYNX: moist mucus membranes NECK: full ROM, no cervical LNs noted RESPIRATORY: breathing non-labored CHEST: equal chest rise with normal respiratory effort EXTREMITIES: no edema reported. No scratches / rashes NEUROLOGIC: no obvious deficit Diagnostic tests reviewed for today's visit: Lab Value Units Date High Low HB No results within date range. HCT No results within date range. WBC No results within date range. PLT No results within date range. NA No results within date range. K No results within date range. GLUC No results within date range. BUN No results within date range. CREAT No results within date range. PTSEC No results within date range. INR No results within date range. APTT No results within date range. ALT No results within date range. AST No results within date range. TBILI No results within date range. TSH No results within date range. Lab Value Units Date High Low HCGQT No results within date range. UHCG No results within date range. HCG, BODY* No results within date range. Lab Value Units Date High Low ABORHD No results within date range. ABSCREEN No results within date range. No results found for: HBA1C All in Epic Impression/Recommendations ASSESSMENT: Generalized anxiety disorder Assessment: controlled on meds METS: Climb a flight of stairs or walk up a hill (5.50 METs) Participate in moderate recreational activities, such as golf, bowling, dancing, doubles tennis, orthrowing a baseball or football (6.00 METs) Run a short distance (8.00 METs) Patient denies any chest pain or undue shortness of breath with the above physical activity. ASA Class: 2 ANESTHESIA FINDINGS: Intubation History: No history of difficult intubation Significant Anesthesia Considerations: None Airway Exam: General: Normal appearance Mallampati Score is CLASS II ULBT: Class II - Lower incisors can bite the upper lip below the jayesh line Neck: Normal appearance and function, Distance from hyoid to mentum during neck extension is at least 3 finger breaths Mouth: Normal tongue size and Mouth opening greater than 2 finger breaths Dentition: Intact and permanent retainer upper and lower Airway History: No abnormal airway history STOP BANG Score: Criteria: None Score = 0 PLAN: This patient is optimally prepared for surgery. CONSULTS: Patient does not require consults for optimization at this time. The Following Tests/Procedures Have Been Initiated: Labs not indicated per P[facility] protocol, EKG not indicated per [facility] protocol Planned Anesthetic: Per anesthesia choice Instructions Given to Patient: Patient given verbal instructions and voices comprehension and compliance. Copy sent electronically via My Chart, email, or mobile device. This is a virtual visit. It required patient-provider interaction for the medical decision making as documented above. SIGNATURE: Christi Shin PA-C PATIENT NAME: Fabian Menjivar DATE: September 19, 2021 TIME: 9:48 AM PAGER/CONTACT #: documented in this encounterThe [facility] Miscellaneous Notes* Telephone Encounter - Kathrine Iyer PA-C - 09/04/2021 5:46 PM EDT Contacted patient today to set up surgery date with Dr. Chang. No answer. Left message as below with request to confirm. DOS OFFERED:10/04 or 10/08 DOS ACCEPTED: ? Patient has crutches and knows how to use them? Patient would like to go to ? for postop physical therapy Kathrine Iyer PA-C Right knee arthroscopy, fat pad debridement/dissection, cyclops (scar tissue) lesion excision and possible partial lateral meniscectomy - 1 of 2 e-signatures recorded documented in this encounterThe [facility] History of Present illness Narrative* Jaida Chang MD - 08/28/2021 5:35 PM EDT TRAINING ROOM NOTE: Interval History: Fabian Menjivar returns today for evaluation of her right knee . Chief complaintis right knee pain . Review of Systems: CV: No chest pain Pulm: No short of breath HEENT: No head ache General: no fevers, chills, nausea/vomiting, malaise Physical Examination: This is a well appearing, well nourished patient in no acute distress. Head is normocephalic and atraumatic. White sclera and pink conjunctiva. Mucous membranes are moist. Breathes easily and has normal chest wall excursion. Affect is normal . Imaging: [facility] is personally reviewed by me and demonstrates a cyclops lesion. Some possible lateral meniscus tearing. Impression/plan: Fabian Menjivar is a 20 year old year old female with right knee pain. Possible lateral meniscus tear and cyclops lesion . I have discussed the risks, benefits, alternative procedures, expected outcomes and the length of convalescence. We have also discussed operative versus nonoperative management. Fabian Menjivar understands and would like to proceed with surgical intervention. The plan will be for right knee arthroscopy, fat pad debridement and dissection, cyclops excisionand possible partial lateral meniscectomy. No nerve block. No antiobiotics. Shaver blades availablebut not opened. Dyonics leg sanchez and stirrup. Fabian Menjivar was offered a surgery at a [facility] facility. Dr. Chang and the patient have discussed in detail the risk of exposure to and/or potential harm posed by the COVID-19 virus with having a surgery at this time versus the risk of delaying the surgery. It is not possible to knoweither the risk of delaying the surgery or procedure or chance of getting an infection with perfectaccuracy, but a joint decision was made between the patient and Dr. Chang to proceed at this time with the scheduled surgery/procedure as indicated on the consent form . Jaida Chang MD documented in this encounterThe [facility]05-01-2022 Miscellaneous Notes* [facility] - RT Andrzej(R) - 08/26/2021 1:20 PM EDT Radiology Service Progress Note PATIENT NAME: Fabian Menjivar DATE OF SERVICE: August 26, 2021 TIME: 1:30 PM PATIENT IDENTITY VERIFICATION COMPLETED USING TWO (2) IDENTIFIERS: Name and Date of confirmedby patient verbally and Name and Date of confirmed by identification band. FALL SCREENING: Has the patient had 2 falls in the last year or 1 fall with injury or currently using an Ambulatory Assistive Device (Walker, Cane, Wheelchair, Crutches, etc.)? No PATIENT GENDER DATA: Female. status: : No status: NO. PATIENT RELEVANT IMPLANT DATA REVIEWED: Yes RADIOLOGY DEPARTMENT: MR; Exam(s) Completed: Lower MSK: Knee, right PERIPHERAL IV DATA: Not applicable SIGNED BY: RT Andrzej(Jud) August 26, 2021 1:30 PM documented in this encounterThe [facility]04-21-2022 History of Present illness Narrative* Jaida Chang MD - 08/16/2021 7:13 PM EDT DATE OF PROCEDURE: October 02, 2020 OPERATION: 1. Right knee arthroscopically-assisted anterior cruciate ligament reconstruction with bone-patellar tendon-bone autograft 2. Diagnostic arthroscopy. 3. Examination under anesthesia. 4. Right knee partial lateral meniscectomy 5. Right knee medial meniscus repair REF: Dr. Alvarado Interval History: Fabian Menjivar returns today for evaluation of her right . Chief complaint is right knee posterior pain. She continues to have pain inside the knee despite treatment with rehabilitation. Starting to bother her hip also Physical Examination: This is a well appearing, well nourishedl patient in no acute distress. Head is normocephalic and atraumatic. White sclera and pink conjunctiva. Mucous membranes are moist. Patient breathes easily and has normal chest wall excursion. Affect is normal. Right knee with pain on bounce testing. Negative Gaby's. range of motion is 0/3/135 degrees. No pain with patellofemoral compression Right hip with full range of motion, no impingement. Review of Systems: CV: No chest pain Pulm: No short of breath HEENT: No head ache General: no fevers, chills, nausea/vomiting, malaise Imaging: none Impression: Fabian Menjivar is a 20 year old female here with a diagnosis of right knee continue pain following ACLR and medial meniscus repair. Suspect cyclops vs MM re-tear . Plan: 1. Return to training room after the MRI 2. Pharmacologic treatment: None 3. Physical therapy: No 4. Imaging: MRI 5. Other: none Jaida Chang MD documented in this encounterThe [facility]04-15-2022 Miscellaneous Notes* Telephone Encounter - Dionte Fu MD - 08/10/2021 3:34 PM EDT Patient's request for medication is as follows Signed Prescriptions Disp Refills dicyclomine (BENTYL) 10 mg capsule 90 capsule 0 Sig: Take one before dinner. May repeat at bedtime, as needed. BRENDEN: No Authorizing Provider: DIONTE FU MD * Telephone Encounter - Rosie Lockett RN - 08/08/2021 3:39 PM EDT Last WCC: greater than one year ago Last ADHD / Med Check visit: 04/09/21, Patient was notified that needs to schedule Med check Verify RX Benefits Completed Last medication refill date: 12/19/2020 Requesting 90 day supply Retail pharmacy updated: Completed Patient aware RX will be sent to pharmacy. No need to notify patient. Immunizations due: MENINGOCOCCAL B: Consider based on risk(1 of 2 - Risk Bexsero 2-dose series) Never done HEPATITIS C SCREENING Never done HIV SCREENING Never done Rosie Lockett RN documented in this encounterThe [facility]06-18-2021 History of Present illness Narrative* Nidia Dean, RT(R) - 10/13/2020 12:45 PM EDT Radiology Service Progress Note PATIENT NAME: Fabian Menjivar DATE OF SERVICE: October 13, 2020 TIME: 1:02 PM PATIENT IDENTITY VERIFICATION COMPLETED USING TWO (2) IDENTIFIERS: Name and Date of confirmedby patient verbally. FALL SCREENING: Has the patient had 2 falls in the last year or 1 fall with injury or currently using an Ambulatory Assistive Device (Walker, Cane, Wheelchair, Crutches, etc.)? No PATIENT GENDER DATA: Female. status: : No status: NO. PATIENT RELEVANT IMPLANT DATA REVIEWED: Not Applicable RADIOLOGY DEPARTMENT: General X-ray: Exam(s) Completed: Lower Extremity X- Ray(s): Knee, AP / LAT Right PERIPHERAL IV DATA: Not applicable SIGNED BY: RT Rosales(R) October 13, 2020 1:02 PM documented in this encounterThe [facility]Evaluation note* Diagnosis Altered bowel function Other symptoms involving digestive system documented in this encounter [facility]* Diagnosis S/P right knee arthroscopically-assisted anterior cruciate ligament reconstruction with bone-patellar tendon-bone autograft, medial meniscus repair, partial lateral meniscectomy- Primary documented in this encounter [facility]* Diagnosis S/P right knee arthroscopically-assisted anterior cruciate ligament reconstruction with bone-patellar tendon-bone autograft, medial meniscus repair, partial lateral meniscectomy [facility] Diagnosis S/P right knee arthroscopically-assisted anterior cruciate ligament reconstruction with bone-patellar tendon-bone autograft, medial meniscus repair, partial lateral meniscectomy- Primary documented in this encounter [facility]* Diagnosis S/P right knee surgery- Primary Tear of lateral meniscus of right knee, unspecified tear type, unspecified whether old or current tear, initial encounter Cyclops lesion of right knee S/P right knee surgery Tear of lateral meniscus of right knee, unspecified tear type, unspecified whether old or current tear, initial encounter Cyclops lesion of right knee [facility]* Diagnosis Pre-op evaluation- Primary Preoperative examination, unspecified Rupture of anterior cruciate ligament of right knee, subsequent encounter Generalized anxiety disorder S/P right knee surgery Tear of lateral meniscus of right knee, unspecified tear type, unspecified whether old or current tear, initial encounter Cyclops lesion of right knee [facility] Diagnosis OPENED IN ERROR To allow closing an encounter opened in error (used in SmartSet) [facility]* Diagnosis Mental status change resolved- Primary [facility]* Diagnosis Generalized anxiety disorder [facility]* Diagnosis Generalized anxiety disorder- Primary Spells of decreased attentiveness Other general symptoms Near syncope Syncope and collapse [facility]* Diagnosis Pain- Primary Generalized pain [facility]* Diagnosis Dietary counseling- Primary Dietary surveillance and counseling BMI 32.0-32.9,adult Body Mass Index 32.0-32.9, adult [facility]* 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 [facility]* 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 [facility]* Diagnosis Spells of decreased attentiveness- Primary Other general symptoms [facility]* Diagnosis Bipolar 2 disorder (HCC)- Primary Other bipolar disorders Mixed obsessional thoughts and acts [facility]* Diagnosis 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 [facility]* Diagnosis Bipolar 2 disorder (HCC)- Primary Other bipolar disorders Mixed obsessional thoughts and acts [facility]* Diagnosis Spells of decreased attentiveness Other general symptoms 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) [facility]* Diagnosis NO SHOW- Primary [facility]* Diagnosis Altered bowel function Other symptoms involving digestive system [facility]* Diagnosis Bipolar 2 disorder (HCC)- Primary Other bipolar disorders Mixed obsessional thoughts and acts [facility]* Diagnosis Acetabular labrum tear, right, initial encounter- Primary [facility]* Diagnosis Focal epilepsy with impairment of consciousness, intractable (HCC)- Primary Localization-related (focal) (partial) epilepsy and epileptic syndromes with simple partial seizures, with intractable epilepsy [facility]* Diagnosis APPOINTMENT CANCELLED- Primary [facility]* Diagnosis Focal epilepsy with impairment of consciousness, intractable (HCC)- Primary Localization-related (focal) (partial) epilepsy and epileptic syndromes with simple partial seizures, with intractable epilepsy [facility]* Diagnosis Spells of decreased attentiveness Other general symptoms 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) [facility]* Diagnosis Altered bowel function Other symptoms involving digestive system [facility]* Diagnosis Partial epilepsy with impairment of consciousness, intractable (HCC)- Primary Localization-related (focal) (partial) epilepsy and epileptic syndromes with complex partial seizures, with intractable epilepsy Partial epilepsy with impairment of consciousness, intractable (HCC) Localization-related (focal) (partial) epilepsy and epileptic syndromes with complex partial seizures, with intractable epilepsy [facility]* Diagnosis Preoperative examination- Primary Preoperative examination, unspecified Partial epilepsy with impairment of consciousness, intractable (HCC) Localization-related (focal) (partial) epilepsy and epileptic syndromes with complex partial seizures, with intractable epilepsy [facility]* Diagnosis Pre-op evaluation- Primary Preoperative examination, unspecified Bipolar 2 disorder (HCC) Other bipolar disorders Generalized anxiety disorder Chiari malformation type I (HCC) Compression of brain Depression, unspecified depression type Celiac disease Obesity (BMI 30-39.9) Obesity, unspecified Seizure-like activity (HCC) Other convulsions 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, intractable (HCC) Localization-related (focal) (partial) epilepsy and epileptic syndromes with complex partial seizures, with intractable epilepsy [facility]* Diagnosis Focal epilepsy with impairment of consciousness, intractable (HCC)- Primary Localization-related (focal) (partial) epilepsy and epileptic syndromes with simple partial seizures, with intractable epilepsy Partial epilepsy with impairment of consciousness, intractable (HCC) Localization-related (focal) (partial) epilepsy and epileptic syndromes with complex partial seizures, with intractable epilepsy [facility]* Diagnosis Focal epilepsy with impairment of consciousness, intractable (HCC)- Primary Localization-related (focal) (partial) epilepsy and epileptic syndromes with simple partial seizures, with intractable epilepsy Partial epilepsy with impairment of consciousness, intractable (HCC) Localization-related (focal) (partial) epilepsy and epileptic syndromes with complex partial seizures, with intractable epilepsy [facility]* Diagnosis S/P brain surgery Other postprocedural status [facility]* Diagnosis Other specified postprocedural states- Primary [facility] noteNo assessment information availableWKind[facility] Work Phone: Evaluation note* Diagnosis 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 Malignant neoplasm of brain, unspecified site S/P craniotomy Other postprocedural status Generalized anxiety disorder Depression, unspecified depression type [facility]* Diagnosis Generalized anxiety disorder- [facility] Encounter for gynecological examination (general) (routine) without abnormal findings- Primary Screening for cervical cancer Screening for malignant neoplasm of the cervix Screen for STD (sexually transmitted disease) Screening examination for venereal disease [facility] Diagnosis Spells of decreased attentiveness Other general symptoms 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) [facility] Diagnosis Mixed obsessional thoughts and acts- Primary Bipolar 2 disorder (HCC) Other bipolar disorders [facility] Diagnosis Generalized anxiety disorder [facility] Diagnosis Pain in right hip Pain in joint, pelvic region and thigh [facility] Diagnosis Generalized anxiety disorder [facility] Diagnosis NO SHOW- Primary [facility] Diagnosis 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 Malignant neoplasm of brain, unspecified site [facility] Diagnosis Other specified postprocedural states [facility]* Diagnosis Lower abdominal pain- Primary Abdominal pain, other specified site Nausea Nausea alone Weight gain Abnormal weight gain Malaise and fatigue Other malaise and fatigue Celiac disease [facility] Diagnosis Generalized anxiety disorder- Primary Bipolar 2 disorder (HCC) Other bipolar disorders 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[facility]) [facility] Diagnosis Acute vaginitis- Primary Vaginitis and vulvovaginitis, unspecified [facility] Diagnosis Pre-operative examination- Primary Preoperative examination, unspecified Rupture of anterior cruciate ligament of right knee, subsequent encounter Generalized anxiety disorder Celiac disease Hiatal hernia Diaphragmatic hernia without mention of obstruction or gangrene Pre-op evaluation- Primary Preoperative examination, unspecified Rupture of anterior cruciate ligament of right knee, subsequent encounter Generalized anxiety disorder 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)- Primary Localization-related (focal) (partial) epilepsy and epileptic syndromes with complex partial seizures, with intractable epilepsy Partial epilepsy with impairment of consciousness, intractable (HCC) Localization-related (focal) (partial) epilepsy and epileptic syndromes with complex partial seizures, with intractable epilepsy S/P brain surgery Other postprocedural status Generalized anxiety disorder 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[facility]) Depression Depressive disorder, not elsewhere classified Midline shift of brain Pre-op evaluation- Primary Preoperative examination, unspecified Bipolar 2 disorder (HCC) Other bipolar disorders Generalized anxiety disorder Chiari malformation type I ([facility]) Compression of brain Depression, unspecified depression type Celiac disease Obesity (BMI 30-39.9) Obesity, unspecified Seizure-like activity (HCC) Other convulsions 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[facility]) Trichomoniasis- Primary Trichomoniasis, unspecified [facility] Diagnosis Pre-operative examination- Primary Preoperative examination, unspecified Rupture of anterior cruciate ligament of right knee, subsequent encounter Generalized anxiety disorder Celiac disease Hiatal hernia Diaphragmatic hernia without mention of obstruction or gangrene Pre-op evaluation- Primary Preoperative examination, unspecified Rupture of anterior cruciate ligament of right knee, subsequent encounter Generalized anxiety disorder 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)- Primary Localization-related (focal) (partial) epilepsy and epileptic syndromes with complex partial seizures, with intractable epilepsy Partial epilepsy with impairment of consciousness, intractable (HCC) Localization-related (focal) (partial) epilepsy and epileptic syndromes with complex partial seizures, with intractable epilepsy S/P brain surgery Other postprocedural status Generalized anxiety disorder 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) Depression Depressive disorder, not elsewhere classified Midline shift of brain Pre-op evaluation- Primary Preoperative examination, unspecified Bipolar 2 disorder (HCC) Other bipolar disorders Generalized anxiety disorder Chiari malformation type I (HCC) Compression of brain Depression, unspecified depression type Celiac disease Obesity (BMI 30-39.9) Obesity, unspecified Seizure-like activity (HCC) Other convulsions 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) Mixed obsessional thoughts and acts- Primary Bipolar 2 disorder (HCC) Other bipolar disorders Generalized anxiety disorder Psychosocial stressors Other psychological or physical stress, not elsewhere classified [facility] Pre-operative examination- Primary Preoperative examination, unspecified Rupture of anterior cruciate ligament of right knee, subsequent encounter Generalized anxiety disorder Celiac disease Hiatal hernia Diaphragmatic hernia without mention of obstruction or gangrene Pre-op evaluation- Primary Preoperative examination, unspecified Rupture of anterior cruciate ligament of right knee, subsequent encounter Generalized anxiety disorder 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)- Primary Localization-related (focal) (partial) epilepsy and epileptic syndromes with complex partial seizures, with intractable epilepsy Partial epilepsy with impairment of consciousness, intractable (HCC) Localization-related (focal) (partial) epilepsy and epileptic syndromes with complex partial seizures, with intractable epilepsy S/P brain surgery Other postprocedural status Generalized anxiety disorder 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) Depression Depressive disorder, not elsewhere classified Midline shift of brain Pre-op evaluation- Primary Preoperative examination, unspecified Bipolar 2 disorder (HCC) Other bipolar disorders Generalized anxiety disorder Chiari malformation type I (HCC) Compression of brain Depression, unspecified depression type Celiac disease Obesity (BMI 30-39.9) Obesity, unspecified Seizure-like activity (HCC) Other convulsions 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, intractable (HCC)- Primary Localization-related (focal) (partial) epilepsy and epileptic syndromes with simple partial seizures, with intractable epilepsy Spells of decreased attentiveness Other general symptoms 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) [facility] Diagnosis Pre-operative examination- Primary Preoperative examination, unspecified Rupture of anterior cruciate ligament of right knee, subsequent encounter Generalized anxiety disorder Celiac disease Hiatal hernia Diaphragmatic hernia without mention of obstruction or gangrene Pre-op evaluation- Primary Preoperative examination, unspecified Rupture of anterior cruciate ligament of right knee, subsequent encounter Generalized anxiety disorder 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)- Primary Localization-related (focal) (partial) epilepsy and epileptic syndromes with complex partial seizures, with intractable epilepsy Partial epilepsy with impairment of consciousness, intractable (HCC) Localization-related (focal) (partial) epilepsy and epileptic syndromes with complex partial seizures, with intractable epilepsy S/P brain surgery Other postprocedural status Generalized anxiety disorder 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) Depression Depressive disorder, not elsewhere classified Midline shift of brain Pre-op evaluation- Primary Preoperative examination, unspecified Bipolar 2 disorder (HCC) Other bipolar disorders Generalized anxiety disorder Chiari malformation type I (HCC) Compression of brain Depression, unspecified depression type Celiac disease Obesity (BMI 30-39.9) Obesity, unspecified Seizure-like activity (HCC) Other convulsions 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) Generalized anxiety disorder- Primary Bipolar 2 disorder (HCC) Other bipolar disorders Cannabis dependence (HCC) Cannabis dependence, unspecified Alcohol abuse Alcohol abuse, unspecified [facility] Diagnosis Pre-operative examination- Primary Preoperative examination, unspecified Rupture of anterior cruciate ligament of right knee, subsequent encounter Generalized anxiety disorder Celiac disease Hiatal hernia Diaphragmatic hernia without mention of obstruction or gangrene Pre-op evaluation- Primary Preoperative examination, unspecified Rupture of anterior cruciate ligament of right knee, subsequent encounter Generalized anxiety disorder Generalized anxiety disorder Spells of decreased attentiveness Other general symptoms Near syncope Syncope and collapse Partial epilepsy with impairment of consciousness, intractable (HCC) Localization-related (focal) (partial) epilepsy and epileptic syndromes with complex partial seizures, with intractable epilepsy S/P brain surgery Other postprocedural status Pre-op evaluation- Primary Preoperative examination, unspecified Bipolar 2 disorder (HCC) Other bipolar disorders Generalized anxiety disorder Chiari malformation type I (HCC) Compression of brain Depression, unspecified depression type Celiac disease Obesity (BMI 30-39.9) Obesity, unspecified Seizure-like activity (HCC) Other convulsions 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) documented in this encounter [facility]* Diagnosis Pre-operative examination- Primary Preoperative examination, unspecified Rupture of anterior cruciate ligament of right knee, subsequent encounter Generalized anxiety disorder Celiac disease Hiatal hernia Diaphragmatic hernia without mention of obstruction or gangrene Pre-op evaluation- Primary Preoperative examination, unspecified Rupture of anterior cruciate ligament of right knee, subsequent encounter Generalized anxiety disorder Pain Generalized pain Partial epilepsy with impairment of consciousness, intractable (HCC) Localization-related (focal) (partial) epilepsy and epileptic syndromes with complex partial seizures, with intractable epilepsy S/P brain surgery Other postprocedural status Pre-op evaluation- Primary Preoperative examination, unspecified Bipolar 2 disorder (HCC) Other bipolar disorders Generalized anxiety disorder Chiari malformation type I (HCC) Compression of brain Depression, unspecified depression type Celiac disease Obesity (BMI 30-39.9) Obesity, unspecified Seizure-like activity (HCC) Other convulsions 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) documented in this encounter [facility] note* Diagnosis Pre-operative examination- Primary Preoperative examination, unspecified Rupture of anterior cruciate ligament of right knee, subsequent encounter Generalized anxiety disorder Celiac disease Hiatal hernia Diaphragmatic hernia without mention of obstruction or gangrene Pre-op evaluation- Primary Preoperative examination, unspecified Rupture of anterior cruciate ligament of right knee, subsequent encounter Generalized anxiety disorder 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)- Primary Localization-related (focal) (partial) epilepsy and epileptic syndromes with complex partial seizures, with intractable epilepsy Partial epilepsy with impairment of consciousness, intractable (HCC) Localization-related (focal) (partial) epilepsy and epileptic syndromes with complex partial seizures, with intractable epilepsy S/P brain surgery Other postprocedural status Generalized anxiety disorder 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) Depression Depressive disorder, not elsewhere classified Midline shift of brain Pre-op evaluation- Primary Preoperative examination, unspecified Bipolar 2 disorder (HCC) Other bipolar disorders Generalized anxiety disorder Chiari malformation type I (HCC) Compression of brain Depression, unspecified depression type Celiac disease Obesity (BMI 30-39.9) Obesity, unspecified Seizure-like activity (HCC) Other convulsions 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, 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, with intractable epilepsy documented in this encounter [facility]* Diagnosis Pre-operative examination- Primary Preoperative examination, unspecified Rupture of anterior cruciate ligament of right knee, subsequent encounter Generalized anxiety disorder Celiac disease Hiatal hernia Diaphragmatic hernia without mention of obstruction or gangrene Rupture of anterior cruciate ligament of right knee, initial encounter Pre-op evaluation- Primary Preoperative examination, unspecified Rupture of anterior cruciate ligament of right knee, subsequent encounter Generalized anxiety disorder Partial epilepsy with impairment of consciousness, intractable (HCC) Localization-related (focal) (partial) epilepsy and epileptic syndromes with complex partial seizures, with intractable epilepsy S/P brain surgery Other postprocedural status Pre-op evaluation- Primary Preoperative examination, unspecified Bipolar 2 disorder (HCC) Other bipolar disorders Generalized anxiety disorder Chiari malformation type I (HCC) Compression of brain Depression, unspecified depression type Celiac disease Obesity (BMI 30-39.9) Obesity, unspecified Seizure-like activity (HCC) Other convulsions 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) documented in this encounter [facility] note* Diagnosis Pre-operative examination- Primary Preoperative examination, unspecified Rupture of anterior cruciate ligament of right knee, subsequent encounter Generalized anxiety disorder Celiac disease Hiatal hernia Diaphragmatic hernia without mention of obstruction or gangrene Pre-op evaluation- Primary Preoperative examination, unspecified Rupture of anterior cruciate ligament of right knee, subsequent encounter Generalized anxiety disorder 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)- Primary Localization-related (focal) (partial) epilepsy and epileptic syndromes with complex partial seizures, with intractable epilepsy Partial epilepsy with impairment of consciousness, intractable (HCC) Localization-related (focal) (partial) epilepsy and epileptic syndromes with complex partial seizures, with intractable epilepsy S/P brain surgery Other postprocedural status Generalized anxiety disorder 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) Depression Depressive disorder, not elsewhere classified Midline shift of brain Pre-op evaluation- Primary Preoperative examination, unspecified Bipolar 2 disorder (HCC) Other bipolar disorders Generalized anxiety disorder Chiari malformation type I (HCC) Compression of brain Depression, unspecified depression type Celiac disease Obesity (BMI 30-39.9) Obesity, unspecified Seizure-like activity (HCC) Other convulsions 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) APPOINTMENT CANCELLED- Primary [facility] Diagnosis Pre-operative examination- Primary Preoperative examination, unspecified Rupture of anterior cruciate ligament of right knee, subsequent encounter Generalized anxiety disorder Celiac disease Hiatal hernia Diaphragmatic hernia without mention of obstruction or gangrene Pre-op evaluation- Primary Preoperative examination, unspecified Rupture of anterior cruciate ligament of right knee, subsequent encounter Generalized anxiety disorder 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)- Primary Localization-related (focal) (partial) epilepsy and epileptic syndromes with complex partial seizures, with intractable epilepsy Partial epilepsy with impairment of consciousness, intractable (HCC) Localization-related (focal) (partial) epilepsy and epileptic syndromes with complex partial seizures, with intractable epilepsy S/P brain surgery Other postprocedural status Generalized anxiety disorder 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) Depression Depressive disorder, not elsewhere classified Midline shift of brain Pre-op evaluation- Primary Preoperative examination, unspecified Bipolar 2 disorder (HCC) Other bipolar disorders Generalized anxiety disorder Chiari malformation type I (HCC) Compression of brain Depression, unspecified depression type Celiac disease Obesity (BMI 30-39.9) Obesity, unspecified Seizure-like activity (HCC) Other convulsions 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) Encounter for gynecological examination (general) (routine) without abnormal findings- Primary Screening for cervical cancer Screening for malignant neoplasm of the cervix Encounter for screening for human papillomavirus (HPV) Special screening examination for human papillomavirus (HPV) Screening for STD (sexually transmitted disease) Screening examination for venereal disease LGSIL on Pap smear of cervix [facility] Diagnosis Pre-operative examination- Primary Preoperative examination, unspecified Rupture of anterior cruciate ligament of right knee, subsequent encounter Generalized anxiety disorder Celiac disease Hiatal hernia Diaphragmatic hernia without mention of obstruction or gangrene Pre-op evaluation- Primary Preoperative examination, unspecified Rupture of anterior cruciate ligament of right knee, subsequent encounter Generalized anxiety disorder 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)- Primary Localization-related (focal) (partial) epilepsy and epileptic syndromes with complex partial seizures, with intractable epilepsy Partial epilepsy with impairment of consciousness, intractable (HCC) Localization-related (focal) (partial) epilepsy and epileptic syndromes with complex partial seizures, with intractable epilepsy S/P brain surgery Other postprocedural status Generalized anxiety disorder 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) Depression Depressive disorder, not elsewhere classified Midline shift of brain Pre-op evaluation- Primary Preoperative examination, unspecified Bipolar 2 disorder (HCC) Other bipolar disorders Generalized anxiety disorder Chiari malformation type I (HCC) Compression of brain Depression, unspecified depression type Celiac disease Obesity (BMI 30-39.9) Obesity, unspecified Seizure-like activity (HCC) Other convulsions 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) Gastroesophageal reflux disease, unspecified whether esophagitis present- Primary Aphthous, ulcer oral Impetigo Nausea and vomiting, unspecified vomiting type Generalized abdominal pain Abdominal pain, generalized [facility] Diagnosis Pre-operative examination- Primary Preoperative examination, unspecified Rupture of anterior cruciate ligament of right knee, subsequent encounter Generalized anxiety disorder Celiac disease Hiatal hernia Diaphragmatic hernia without mention of obstruction or gangrene Pre-op evaluation- Primary Preoperative examination, unspecified Rupture of anterior cruciate ligament of right knee, subsequent encounter Generalized anxiety disorder 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)- Primary Localization-related (focal) (partial) epilepsy and epileptic syndromes with complex partial seizures, with intractable epilepsy Partial epilepsy with impairment of consciousness, intractable (HCC) Localization-related (focal) (partial) epilepsy and epileptic syndromes with complex partial seizures, with intractable epilepsy S/P brain surgery Other postprocedural status Generalized anxiety disorder 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) Depression Depressive disorder, not elsewhere classified Midline shift of brain Pre-op evaluation- Primary Preoperative examination, unspecified Bipolar 2 disorder (HCC) Other bipolar disorders Generalized anxiety disorder Chiari malformation type I (HCC) Compression of brain Depression, unspecified depression type Celiac disease Obesity (BMI 30-39.9) Obesity, unspecified Seizure-like activity (HCC) Other convulsions 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) Bipolar 2 disorder (HCC)- Primary Other bipolar disorders Mixed obsessional thoughts and acts Generalized anxiety disorder Psychosocial stressors Other psychological or physical stress, not elsewhere classified Medication side effect, initial encounter [facility] Diagnosis Pre-operative examination- Primary Preoperative examination, unspecified Rupture of anterior cruciate ligament of right knee, subsequent encounter Generalized anxiety disorder Celiac disease Hiatal hernia Diaphragmatic hernia without mention of obstruction or gangrene Pre-op evaluation- Primary Preoperative examination, unspecified Rupture of anterior cruciate ligament of right knee, subsequent encounter Generalized anxiety disorder 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)- Primary Localization-related (focal) (partial) epilepsy and epileptic syndromes with complex partial seizures, with intractable epilepsy Partial epilepsy with impairment of consciousness, intractable (HCC) Localization-related (focal) (partial) epilepsy and epileptic syndromes with complex partial seizures, with intractable epilepsy S/P brain surgery Other postprocedural status Generalized anxiety disorder 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) Depression Depressive disorder, not elsewhere classified Midline shift of brain Pre-op evaluation- Primary Preoperative examination, unspecified Bipolar 2 disorder (HCC) Other bipolar disorders Generalized anxiety disorder Chiari malformation type I (HCC) Compression of brain Depression, unspecified depression type Celiac disease Obesity (BMI 30-39.9) Obesity, unspecified Seizure-like activity (HCC) Other convulsions 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, 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, with intractable epilepsy [facility] Diagnosis Pre-operative examination- Primary Preoperative examination, unspecified Rupture of anterior cruciate ligament of right knee, subsequent encounter Generalized anxiety disorder Celiac disease Hiatal hernia Diaphragmatic hernia without mention of obstruction or gangrene Pre-op evaluation- Primary Preoperative examination, unspecified Rupture of anterior cruciate ligament of right knee, subsequent encounter Generalized anxiety disorder 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)- Primary Localization-related (focal) (partial) epilepsy and epileptic syndromes with complex partial seizures, with intractable epilepsy Partial epilepsy with impairment of consciousness, intractable (HCC) Localization-related (focal) (partial) epilepsy and epileptic syndromes with complex partial seizures, with intractable epilepsy S/P brain surgery Other postprocedural status Generalized anxiety disorder 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) Depression Depressive disorder, not elsewhere classified Midline shift of brain Pre-op evaluation- Primary Preoperative examination, unspecified Bipolar 2 disorder (HCC) Other bipolar disorders Generalized anxiety disorder Chiari malformation type I (HCC) Compression of brain Depression, unspecified depression type Celiac disease Obesity (BMI 30-39.9) Obesity, unspecified Seizure-like activity (HCC) Other convulsions 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, 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, with intractable epilepsy Spells of decreased attentiveness Other general symptoms 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) [facility] Diagnosis Pre-operative examination- Primary Preoperative examination, unspecified Rupture of anterior cruciate ligament of right knee, subsequent encounter Generalized anxiety disorder Celiac disease Hiatal hernia Diaphragmatic hernia without mention of obstruction or gangrene Pre-op evaluation- Primary Preoperative examination, unspecified Rupture of anterior cruciate ligament of right knee, subsequent encounter Generalized anxiety disorder 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)- Primary Localization-related (focal) (partial) epilepsy and epileptic syndromes with complex partial seizures, with intractable epilepsy Partial epilepsy with impairment of consciousness, intractable (HCC) Localization-related (focal) (partial) epilepsy and epileptic syndromes with complex partial seizures, with intractable epilepsy S/P brain surgery Other postprocedural status Generalized anxiety disorder 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) Depression Depressive disorder, not elsewhere classified Midline shift of brain Pre-op evaluation- Primary Preoperative examination, unspecified Bipolar 2 disorder (HCC) Other bipolar disorders Generalized anxiety disorder Chiari malformation type I (HCC) Compression of brain Depression, unspecified depression type Celiac disease Obesity (BMI 30-39.9) Obesity, unspecified Seizure-like activity (HCC) Other convulsions 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, 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, with intractable epilepsy [facility] Diagnosis Pre-operative examination- Primary Preoperative examination, unspecified Rupture of anterior cruciate ligament of right knee, subsequent encounter Generalized anxiety disorder Celiac disease Hiatal hernia Diaphragmatic hernia without mention of obstruction or gangrene Pre-op evaluation- Primary Preoperative examination, unspecified Rupture of anterior cruciate ligament of right knee, subsequent encounter Generalized anxiety disorder 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)- Primary Localization-related (focal) (partial) epilepsy and epileptic syndromes with complex partial seizures, with intractable epilepsy Partial epilepsy with impairment of consciousness, intractable (HCC) Localization-related (focal) (partial) epilepsy and epileptic syndromes with complex partial seizures, with intractable epilepsy S/P brain surgery Other postprocedural status Generalized anxiety disorder 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) Depression Depressive disorder, not elsewhere classified Midline shift of brain Pre-op evaluation- Primary Preoperative examination, unspecified Bipolar 2 disorder (HCC) Other bipolar disorders Generalized anxiety disorder Chiari malformation type I (HCC) Compression of brain Depression, unspecified depression type Celiac disease Obesity (BMI 30-39.9) Obesity, unspecified Seizure-like activity (HCC) Other convulsions 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) 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) Focal epilepsy with impairment of consciousness, 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, with intractable epilepsy [facility] Diagnosis Pre-operative examination- Primary Preoperative examination, unspecified Rupture of anterior cruciate ligament of right knee, subsequent encounter Generalized anxiety disorder Celiac disease Hiatal hernia Diaphragmatic hernia without mention of obstruction or gangrene Pre-op evaluation- Primary Preoperative examination, unspecified Rupture of anterior cruciate ligament of right knee, subsequent encounter Generalized anxiety disorder 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)- Primary Localization-related (focal) (partial) epilepsy and epileptic syndromes with complex partial seizures, with intractable epilepsy Partial epilepsy with impairment of consciousness, intractable (HCC) Localization-related (focal) (partial) epilepsy and epileptic syndromes with complex partial seizures, with intractable epilepsy S/P brain surgery Other postprocedural status Generalized anxiety disorder 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) Depression Depressive disorder, not elsewhere classified Midline shift of brain Pre-op evaluation- Primary Preoperative examination, unspecified Bipolar 2 disorder (HCC) Other bipolar disorders Generalized anxiety disorder Chiari malformation type I (HCC) Compression of brain Depression, unspecified depression type Celiac disease Obesity (BMI 30-39.9) Obesity, unspecified Seizure-like activity (HCC) Other convulsions 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) Bipolar 2 disorder (HCC)- Primary Other bipolar disorders Generalized anxiety disorder Cannabis dependence (HCC) Cannabis dependence, unspecified Alcohol abuse Alcohol abuse, unspecified [facility] Pre-operative examination- Primary Preoperative examination, unspecified Rupture of anterior cruciate ligament of right knee, subsequent encounter Generalized anxiety disorder Celiac disease Hiatal hernia Diaphragmatic hernia without mention of obstruction or gangrene Pre-op evaluation- Primary Preoperative examination, unspecified Rupture of anterior cruciate ligament of right knee, subsequent encounter Generalized anxiety disorder 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)- Primary Localization-related (focal) (partial) epilepsy and epileptic syndromes with complex partial seizures, with intractable epilepsy Partial epilepsy with impairment of consciousness, intractable (HCC) Localization-related (focal) (partial) epilepsy and epileptic syndromes with complex partial seizures, with intractable epilepsy S/P brain surgery Other postprocedural status Generalized anxiety disorder 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) Depression Depressive disorder, not elsewhere classified Midline shift of brain Pre-op evaluation- Primary Preoperative examination, unspecified Bipolar 2 disorder (HCC) Other bipolar disorders Generalized anxiety disorder Chiari malformation type I (HCC) Compression of brain Depression, unspecified depression type Celiac disease Obesity (BMI 30-39.9) Obesity, unspecified Seizure-like activity (HCC) Other convulsions 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) Altered bowel function Other symptoms involving digestive system [facility] this encounter [facility] Diagnosis Pre-operative examination- Primary Preoperative examination, unspecified Rupture of anterior cruciate ligament of right knee, subsequent encounter Generalized anxiety disorder Celiac disease Hiatal hernia Diaphragmatic hernia without mention of obstruction or gangrene Pre-op evaluation- Primary Preoperative examination, unspecified Rupture of anterior cruciate ligament of right knee, subsequent encounter Generalized anxiety disorder 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)- Primary Localization-related (focal) (partial) epilepsy and epileptic syndromes with complex partial seizures, with intractable epilepsy Partial epilepsy with impairment of consciousness, intractable (HCC) Localization-related (focal) (partial) epilepsy and epileptic syndromes with complex partial seizures, with intractable epilepsy S/P brain surgery Other postprocedural status Generalized anxiety disorder 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) Depression Depressive disorder, not elsewhere classified Midline shift of brain Pre-op evaluation- Primary Preoperative examination, unspecified Bipolar 2 disorder (HCC) Other bipolar disorders Generalized anxiety disorder Chiari malformation type I (HCC) Compression of brain Depression, unspecified depression type Celiac disease Obesity (BMI 30-39.9) Obesity, unspecified Seizure-like activity (HCC) Other convulsions 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) Gastroesophageal reflux disease, unspecified whether esophagitis present documented [facility] this encounter [facility] Diagnosis Pre-operative examination- Primary Preoperative examination, unspecified Rupture of anterior cruciate ligament of right knee, subsequent encounter Generalized anxiety disorder Celiac disease Hiatal hernia Diaphragmatic hernia without mention of obstruction or gangrene Pre-op evaluation- Primary Preoperative examination, unspecified Rupture of anterior cruciate ligament of right knee, subsequent encounter Generalized anxiety disorder 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)- Primary Localization-related (focal) (partial) epilepsy and epileptic syndromes with complex partial seizures, with intractable epilepsy Partial epilepsy with impairment of consciousness, intractable (HCC) Localization-related (focal) (partial) epilepsy and epileptic syndromes with complex partial seizures, with intractable epilepsy S/P brain surgery Other postprocedural status Generalized anxiety disorder 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) Depression Depressive disorder, not elsewhere classified Midline shift of brain Pre-op evaluation- Primary Preoperative examination, unspecified Bipolar 2 disorder (HCC) Other bipolar disorders Generalized anxiety disorder Chiari malformation type I (HCC) Compression of brain Depression, unspecified depression type Celiac disease Obesity (BMI 30-39.9) Obesity, unspecified Seizure-like activity (HCC) Other convulsions 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) Aphthous, ulcer oral [facility] this encounter [facility] [place] [facility] Diagnosis Pre-operative examination- Primary Preoperative examination, unspecified Rupture of anterior cruciate ligament of right knee, subsequent encounter Generalized anxiety disorder Celiac disease Hiatal hernia Diaphragmatic hernia without mention of obstruction or gangrene Pre-op evaluation- Primary Preoperative examination, unspecified Rupture of anterior cruciate ligament of right knee, subsequent encounter Generalized anxiety disorder 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)- Primary Localization-related (focal) (partial) epilepsy and epileptic syndromes with complex partial seizures, with intractable epilepsy Partial epilepsy with impairment of consciousness, intractable (HCC) Localization-related (focal) (partial) epilepsy and epileptic syndromes with complex partial seizures, with intractable epilepsy S/P brain surgery Other postprocedural status Generalized anxiety disorder 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) Depression Depressive disorder, not elsewhere classified Midline shift of brain Pre-op evaluation- Primary Preoperative examination, unspecified Bipolar 2 disorder (HCC) Other bipolar disorders Generalized anxiety disorder Chiari malformation type I (HCC) Compression of brain Depression, unspecified depression type Celiac disease Obesity (BMI 30-39.9) Obesity, unspecified Seizure-like activity (HCC) Other convulsions 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) Gastroesophageal reflux disease, unspecified whether esophagitis present documented [facility] this encounter [facility] Diagnosis Pre-operative examination- Primary Preoperative examination, unspecified Rupture of anterior cruciate ligament of right knee, subsequent encounter Generalized anxiety disorder Celiac disease Hiatal hernia Diaphragmatic hernia without mention of obstruction or gangrene Pre-op evaluation- Primary Preoperative examination, unspecified Rupture of anterior cruciate ligament of right knee, subsequent encounter Generalized anxiety disorder 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)- Primary Localization-related (focal) (partial) epilepsy and epileptic syndromes with complex partial seizures, with intractable epilepsy Partial epilepsy with impairment of consciousness, intractable (HCC) Localization-related (focal) (partial) epilepsy and epileptic syndromes with complex partial seizures, with intractable epilepsy S/P brain surgery Other postprocedural status Generalized anxiety disorder 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) Depression Depressive disorder, not elsewhere classified Midline shift of brain Pre-op evaluation- Primary Preoperative examination, unspecified Bipolar 2 disorder (HCC) Other bipolar disorders Generalized anxiety disorder Chiari malformation type I (HCC) Compression of brain Depression, unspecified depression type Celiac disease Obesity (BMI 30-39.9) Obesity, unspecified Seizure-like activity (HCC) Other convulsions 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, intractable (HCC)- Primary Localization-related (focal) (partial) epilepsy and epileptic syndromes with simple partial seizures, with intractable epilepsy S/P craniotomy Other postprocedural status documented in this encounter [facility] Diagnosis Pre-operative examination- Primary Preoperative examination, unspecified Rupture of anterior cruciate ligament of right knee, subsequent encounter Generalized anxiety disorder Celiac disease Hiatal hernia Diaphragmatic hernia without mention of obstruction or gangrene Pre-op evaluation- Primary Preoperative examination, unspecified Rupture of anterior cruciate ligament of right knee, subsequent encounter Generalized anxiety disorder 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)- Primary Localization-related (focal) (partial) epilepsy and epileptic syndromes with complex partial seizures, with intractable epilepsy Partial epilepsy with impairment of consciousness, intractable (HCC) Localization-related (focal) (partial) epilepsy and epileptic syndromes with complex partial seizures, with intractable epilepsy S/P brain surgery Other postprocedural status Generalized anxiety disorder 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) Midline shift of brain Pre-op evaluation- Primary Preoperative examination, unspecified Bipolar 2 disorder (HCC) Other bipolar disorders Generalized anxiety disorder Chiari malformation type I (HCC) Compression of brain Depression, unspecified depression type Celiac disease Obesity (BMI 30-39.9) Obesity, unspecified Seizure-like activity (HCC) Other convulsions 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) Screen for STD (sexually transmitted disease)- Primary Screening examination for venereal disease Vaginal irritation Unspecified noninflammatory disorder of vagina Urinary frequency [facility] this encounter [facility] Diagnosis Pre-operative examination- Primary Preoperative examination, unspecified Rupture of anterior cruciate ligament of right knee, subsequent encounter Generalized anxiety disorder Celiac disease Hiatal hernia Diaphragmatic hernia without mention of obstruction or gangrene Pre-op evaluation- Primary Preoperative examination, unspecified Rupture of anterior cruciate ligament of right knee, subsequent encounter Generalized anxiety disorder 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)- Primary Localization-related (focal) (partial) epilepsy and epileptic syndromes with complex partial seizures, with intractable epilepsy Partial epilepsy with impairment of consciousness, intractable (HCC) Localization-related (focal) (partial) epilepsy and epileptic syndromes with complex partial seizures, with intractable epilepsy S/P brain surgery Other postprocedural status Generalized anxiety disorder 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) Midline shift of brain Pre-op evaluation- Primary Preoperative examination, unspecified Bipolar 2 disorder (HCC) Other bipolar disorders Generalized anxiety disorder Chiari malformation type I (HCC) Compression of brain Depression, unspecified depression type Celiac disease Obesity (BMI 30-39.9) Obesity, unspecified Seizure-like activity (HCC) Other convulsions 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) Borderline personality disorder (HCC)- Primary Borderline personality disorder MDD (major depressive disorder), recurrent episode, moderate (HCC) Major depressive disorder, recurrent episode, moderate Generalized anxiety disorder Cannabis abuse, uncomplicated Cannabis abuse, unspecified documented in this encounter [facility] Diagnosis Pre-operative examination- Primary Preoperative examination, unspecified Rupture of anterior cruciate ligament of right knee, subsequent encounter Generalized anxiety disorder Celiac disease Hiatal hernia Diaphragmatic hernia without mention of obstruction or gangrene Pre-op evaluation- Primary Preoperative examination, unspecified Rupture of anterior cruciate ligament of right knee, subsequent encounter Generalized anxiety disorder 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)- Primary Localization-related (focal) (partial) epilepsy and epileptic syndromes with complex partial seizures, with intractable epilepsy Partial epilepsy with impairment of consciousness, intractable (HCC) Localization-related (focal) (partial) epilepsy and epileptic syndromes with complex partial seizures, with intractable epilepsy S/P brain surgery Other postprocedural status Generalized anxiety disorder 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) Midline shift of brain Pre-op evaluation- Primary Preoperative examination, unspecified Bipolar 2 disorder (HCC) Other bipolar disorders Generalized anxiety disorder Chiari malformation type I (HCC) Compression of brain Depression, unspecified depression type Celiac disease Obesity (BMI 30-39.9) Obesity, unspecified Seizure-like activity (HCC) Other convulsions 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) Mixed obsessional thoughts and acts- Primary Generalized anxiety disorder Psychosocial stressors Other psychological or physical stress, not elsewhere classified Severe episode of recurrent major depressive disorder, without psychotic features (HCC) Borderline personality disorder (HCC) Borderline personality disorder Encounter for long-term (current) use of medications Encounter for long-term (current) use of other medications documented [facility] this encounter [facility] Diagnosis Pre-operative examination- Primary Preoperative examination, unspecified Rupture of anterior cruciate ligament of right knee, subsequent encounter Generalized anxiety disorder Celiac disease Hiatal hernia Diaphragmatic hernia without mention of obstruction or gangrene Pre-op evaluation- Primary Preoperative examination, unspecified Rupture of anterior cruciate ligament of right knee, subsequent encounter Generalized anxiety disorder 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)- Primary Localization-related (focal) (partial) epilepsy and epileptic syndromes with complex partial seizures, with intractable epilepsy Partial epilepsy with impairment of consciousness, intractable (HCC) Localization-related (focal) (partial) epilepsy and epileptic syndromes with complex partial seizures, with intractable epilepsy S/P brain surgery Other postprocedural status Generalized anxiety disorder 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) Midline shift of brain Pre-op evaluation- Primary Preoperative examination, unspecified Bipolar 2 disorder (HCC) Other bipolar disorders Generalized anxiety disorder Chiari malformation type I (HCC) Compression of brain Depression, unspecified depression type Celiac disease Obesity (BMI 30-39.9) Obesity, unspecified Seizure-like activity (HCC) Other convulsions 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) Encounter for counseling for [id number] transition- Primary Gastroesophageal reflux disease, unspecified whether esophagitis present Altered bowel function Other symptoms involving digestive system [facility] this encounter [facility] Diagnosis Pre-operative examination- Primary Preoperative examination, unspecified Rupture of anterior cruciate ligament of right knee, subsequent encounter Generalized anxiety disorder Celiac disease Hiatal hernia Diaphragmatic hernia without mention of obstruction or gangrene Pre-op evaluation- Primary Preoperative examination, unspecified Rupture of anterior cruciate ligament of right knee, subsequent encounter Generalized anxiety disorder 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)- Primary Localization-related (focal) (partial) epilepsy and epileptic syndromes with complex partial seizures, with intractable epilepsy Partial epilepsy with impairment of consciousness, intractable (HCC) Localization-related (focal) (partial) epilepsy and epileptic syndromes with complex partial seizures, with intractable epilepsy S/P brain surgery Other postprocedural status Generalized anxiety disorder 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) Midline shift of brain Pre-op evaluation- Primary Preoperative examination, unspecified Bipolar 2 disorder (HCC) Other bipolar disorders Generalized anxiety disorder Chiari malformation type I (HCC) Compression of brain Depression, unspecified depression type Celiac disease Obesity (BMI 30-39.9) Obesity, unspecified Seizure-like activity (HCC) Other convulsions 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, 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, with intractable epilepsy Spells of decreased attentiveness Other general symptoms 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) [facility] Diagnosis Pre-operative examination- Primary Preoperative examination, unspecified Rupture of anterior cruciate ligament of right knee, subsequent encounter Generalized anxiety disorder Celiac disease Hiatal hernia Diaphragmatic hernia without mention of obstruction or gangrene Pre-op evaluation- Primary Preoperative examination, unspecified Rupture of anterior cruciate ligament of right knee, subsequent encounter Generalized anxiety disorder 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)- Primary Localization-related (focal) (partial) epilepsy and epileptic syndromes with complex partial seizures, with intractable epilepsy Partial epilepsy with impairment of consciousness, intractable (HCC) Localization-related (focal) (partial) epilepsy and epileptic syndromes with complex partial seizures, with intractable epilepsy S/P brain surgery Other postprocedural status Generalized anxiety disorder 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) Midline shift of brain Pre-op evaluation- Primary Preoperative examination, unspecified Bipolar 2 disorder (HCC) Other bipolar disorders Generalized anxiety disorder Chiari malformation type I (HCC) Compression of brain Depression, unspecified depression type Celiac disease Obesity (BMI 30-39.9) Obesity, unspecified Seizure-like activity (HCC) Other convulsions 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) Gastroesophageal reflux disease, unspecified whether esophagitis present [facility] Pre-operative examination- Primary Preoperative examination, unspecified Rupture of anterior cruciate ligament of right knee, subsequent encounter Generalized anxiety disorder Celiac disease Hiatal hernia Diaphragmatic hernia without mention of obstruction or gangrene Pre-op evaluation- Primary Preoperative examination, unspecified Rupture of anterior cruciate ligament of right knee, subsequent encounter Generalized anxiety disorder 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)- Primary Localization-related (focal) (partial) epilepsy and epileptic syndromes with complex partial seizures, with intractable epilepsy Partial epilepsy with impairment of consciousness, intractable (HCC) Localization-related (focal) (partial) epilepsy and epileptic syndromes with complex partial seizures, with intractable epilepsy S/P brain surgery Other postprocedural status Generalized anxiety disorder 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) Midline shift of brain Pre-op evaluation- Primary Preoperative examination, unspecified Bipolar 2 disorder (HCC) Other bipolar disorders Generalized anxiety disorder Chiari malformation type I (HCC) Compression of brain Depression, unspecified depression type Celiac disease Obesity (BMI 30-39.9) Obesity, unspecified Seizure-like activity (HCC) Other convulsions 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, without psychotic features (HCC)- Primary Medication side effect, initial encounter 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 Borderline personality disorder (HCC) Borderline personality disorder Mixed obsessional thoughts and acts Psychosocial stressors Other psychological or physical stress, not elsewhere classified Encounter for long-term (current) use of medications Encounter for long-term (current) use of other medications Trauma and stressor-related disorder Unspecified adjustment reaction Alcohol use [facility] Pre-operative examination- Primary Preoperative examination, unspecified Rupture of anterior cruciate ligament of right knee, subsequent encounter Generalized anxiety disorder Celiac disease Hiatal hernia Diaphragmatic hernia without mention of obstruction or gangrene Pre-op evaluation- Primary Preoperative examination, unspecified Rupture of anterior cruciate ligament of right knee, subsequent encounter Generalized anxiety disorder 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)- Primary Localization-related (focal) (partial) epilepsy and epileptic syndromes with complex partial seizures, with intractable epilepsy Partial epilepsy with impairment of consciousness, intractable (HCC) Localization-related (focal) (partial) epilepsy and epileptic syndromes with complex partial seizures, with intractable epilepsy S/P brain surgery Other postprocedural status Generalized anxiety disorder 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) Midline shift of brain Pre-op evaluation- Primary Preoperative examination, unspecified Bipolar 2 disorder (HCC) Other bipolar disorders Generalized anxiety disorder Chiari malformation type I (HCC) Compression of brain Depression, unspecified depression type Celiac disease Obesity (BMI 30-39.9) Obesity, unspecified Seizure-like activity (HCC) Other convulsions 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) Gastroesophageal reflux disease, unspecified whether esophagitis present [facility] Diagnosis Pre-operative examination- Primary Preoperative examination, unspecified Rupture of anterior cruciate ligament of right knee, subsequent encounter Generalized anxiety disorder Celiac disease Hiatal hernia Diaphragmatic hernia without mention of obstruction or gangrene Pre-op evaluation- Primary Preoperative examination, unspecified Rupture of anterior cruciate ligament of right knee, subsequent encounter Generalized anxiety disorder 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)- Primary Localization-related (focal) (partial) epilepsy and epileptic syndromes with complex partial seizures, with intractable epilepsy Partial epilepsy with impairment of consciousness, intractable (HCC) Localization-related (focal) (partial) epilepsy and epileptic syndromes with complex partial seizures, with intractable epilepsy S/P brain surgery Other postprocedural status Generalized anxiety disorder 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) Midline shift of brain Pre-op evaluation- Primary Preoperative examination, unspecified Bipolar 2 disorder (HCC) Other bipolar disorders Generalized anxiety disorder Chiari malformation type I (HCC) Compression of brain Depression, unspecified depression type Celiac disease Obesity (BMI 30-39.9) Obesity, unspecified Seizure-like activity (HCC) Other convulsions 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, 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, with intractable epilepsy Spells of decreased attentiveness Other general symptoms 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) [facility] Diagnosis Pre-operative examination- Primary Preoperative examination, unspecified Rupture of anterior cruciate ligament of right knee, subsequent encounter Generalized anxiety disorder Celiac disease Hiatal hernia Diaphragmatic hernia without mention of obstruction or gangrene Pre-op evaluation- Primary Preoperative examination, unspecified Rupture of anterior cruciate ligament of right knee, subsequent encounter Generalized anxiety disorder 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)- Primary Localization-related (focal) (partial) epilepsy and epileptic syndromes with complex partial seizures, with intractable epilepsy Partial epilepsy with impairment of consciousness, intractable (HCC) Localization-related (focal) (partial) epilepsy and epileptic syndromes with complex partial seizures, with intractable epilepsy S/P brain surgery Other postprocedural status Generalized anxiety disorder 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) Midline shift of brain Pre-op evaluation- Primary Preoperative examination, unspecified Bipolar 2 disorder (HCC) Other bipolar disorders Generalized anxiety disorder Chiari malformation type I (HCC) Compression of brain Depression, unspecified depression type Celiac disease Obesity (BMI 30-39.9) Obesity, unspecified Seizure-like activity (HCC) Other convulsions 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) Altered bowel function Other symptoms involving digestive system Aphthous, ulcer oral [facility] this [facility] Diagnosis Pre-operative examination- Primary Preoperative examination, unspecified Rupture of anterior cruciate ligament of right knee, subsequent encounter Generalized anxiety disorder Celiac disease Hiatal hernia Diaphragmatic hernia without mention of obstruction or gangrene Pre-op evaluation- Primary Preoperative examination, unspecified Rupture of anterior cruciate ligament of right knee, subsequent encounter Generalized anxiety disorder 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)- Primary Localization-related (focal) (partial) epilepsy and epileptic syndromes with complex partial seizures, with intractable epilepsy Partial epilepsy with impairment of consciousness, intractable (HCC) Localization-related (focal) (partial) epilepsy and epileptic syndromes with complex partial seizures, with intractable epilepsy S/P brain surgery Other postprocedural status Generalized anxiety disorder 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) Midline shift of brain Pre-op evaluation- Primary Preoperative examination, unspecified Bipolar 2 disorder (HCC) Other bipolar disorders Generalized anxiety disorder Chiari malformation type I (HCC) Compression of brain Depression, unspecified depression type Celiac disease Obesity (BMI 30-39.9) Obesity, unspecified Seizure-like activity (HCC) Other convulsions 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, without psychotic features (HCC)- Primary Encounter for long-term (current) use of medications Encounter for long-term (current) use of other medications Medication side effect, initial encounter 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 Mixed obsessional thoughts and acts Borderline personality disorder (HCC) Borderline personality disorder Trauma and stressor-related disorder Unspecified adjustment reaction [facility] Diagnosis Pre-operative examination- Primary Preoperative examination, unspecified Rupture of anterior cruciate ligament of right knee, subsequent encounter Generalized anxiety disorder Celiac disease Hiatal hernia Diaphragmatic hernia without mention of obstruction or gangrene Pre-op evaluation- Primary Preoperative examination, unspecified Rupture of anterior cruciate ligament of right knee, subsequent encounter Generalized anxiety disorder 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)- Primary Localization-related (focal) (partial) epilepsy and epileptic syndromes with complex partial seizures, with intractable epilepsy Partial epilepsy with impairment of consciousness, intractable (HCC) Localization-related (focal) (partial) epilepsy and epileptic syndromes with complex partial seizures, with intractable epilepsy S/P brain surgery Other postprocedural status Generalized anxiety disorder 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) Midline shift of brain Pre-op evaluation- Primary Preoperative examination, unspecified Bipolar 2 disorder (HCC) Other bipolar disorders Generalized anxiety disorder Chiari malformation type I (HCC) Compression of brain Depression, unspecified depression type Celiac disease Obesity (BMI 30-39.9) Obesity, unspecified Seizure-like activity (HCC) Other convulsions 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, 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, with intractable epilepsy documented [facility] this encounter [facility] Diagnosis Pre-operative examination- Primary Preoperative examination, unspecified Rupture of anterior cruciate ligament of right knee, subsequent encounter Generalized anxiety disorder Celiac disease (HCC) Celiac disease Hiatal hernia Diaphragmatic hernia without mention of obstruction or gangrene Pre-op evaluation- Primary Preoperative examination, unspecified Rupture of anterior cruciate ligament of right knee, subsequent encounter Generalized anxiety disorder 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)- Primary Localization-related (focal) (partial) epilepsy and epileptic syndromes with complex partial seizures, with intractable epilepsy Partial epilepsy with impairment of consciousness, intractable (HCC) Localization-related (focal) (partial) epilepsy and epileptic syndromes with complex partial seizures, with intractable epilepsy S/P brain surgery Other postprocedural status Generalized anxiety disorder 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) Midline shift of brain Pre-op evaluation- Primary Preoperative examination, unspecified Bipolar 2 disorder (HCC) Other bipolar disorders Generalized anxiety disorder Chiari malformation type I (HCC) Compression of brain Depression, unspecified depression type Celiac disease (HCC) Celiac disease Obesity (BMI 30-39.9) Obesity, unspecified Seizure-like activity (HCC) Other convulsions 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, without psychotic features (HCC)- Primary Borderline personality disorder (HCC) Borderline personality disorder Mixed obsessional thoughts and acts Encounter for long-term (current) use of medications Encounter for long-term (current) use of other medications Trauma and stressor-related disorder Unspecified adjustment reaction Psychosocial stressors Other psychological or physical stress, not elsewhere classified Impulse control disorder Impulse control disorder, unspecified [facility] Diagnosis Pre-operative examination- Primary Preoperative examination, unspecified Rupture of anterior cruciate ligament of right knee, subsequent encounter Generalized anxiety disorder Celiac disease (HCC) Celiac disease Hiatal hernia Diaphragmatic hernia without mention of obstruction or gangrene Pre-op evaluation- Primary Preoperative examination, unspecified Rupture of anterior cruciate ligament of right knee, subsequent encounter Generalized anxiety disorder 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)- Primary Localization-related (focal) (partial) epilepsy and epileptic syndromes with complex partial seizures, with intractable epilepsy Partial epilepsy with impairment of consciousness, intractable (HCC) Localization-related (focal) (partial) epilepsy and epileptic syndromes with complex partial seizures, with intractable epilepsy S/P brain surgery Other postprocedural status Generalized anxiety disorder 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) Midline shift of brain Pre-op evaluation- Primary Preoperative examination, unspecified Bipolar 2 disorder (HCC) Other bipolar disorders Generalized anxiety disorder Chiari malformation type I (HCC) Compression of brain Depression, unspecified depression type Celiac disease (HCC) Celiac disease Obesity (BMI 30-39.9) Obesity, unspecified Seizure-like activity (HCC) Other convulsions 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) Gastroesophageal reflux disease, unspecified whether esophagitis present documented [facility] this encounter [facility] Diagnosis Pre-operative examination- Primary Preoperative examination, unspecified Rupture of anterior cruciate ligament of right knee, subsequent encounter Generalized anxiety disorder Celiac disease (HCC) Celiac disease Hiatal hernia Diaphragmatic hernia without mention of obstruction or gangrene Pre-op evaluation- Primary Preoperative examination, unspecified Rupture of anterior cruciate ligament of right knee, subsequent encounter Generalized anxiety disorder 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)- Primary Localization-related (focal) (partial) epilepsy and epileptic syndromes with complex partial seizures, with intractable epilepsy Partial epilepsy with impairment of consciousness, intractable (HCC) Localization-related (focal) (partial) epilepsy and epileptic syndromes with complex partial seizures, with intractable epilepsy S/P brain surgery Other postprocedural status Generalized anxiety disorder 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) Midline shift of brain Pre-op evaluation- Primary Preoperative examination, unspecified Bipolar 2 disorder (HCC) Other bipolar disorders Generalized anxiety disorder Chiari malformation type I (HCC) Compression of brain Depression, unspecified depression type Celiac disease (HCC) Celiac disease Obesity (BMI 30-39.9) Obesity, unspecified Seizure-like activity (HCC) Other convulsions 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, 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, with intractable epilepsy documented in this encounter [facility]* Diagnosis Pre-operative examination- Primary Preoperative examination, unspecified Rupture of anterior cruciate ligament of right knee, subsequent encounter Generalized anxiety disorder Celiac disease (HCC) Celiac disease Hiatal hernia Diaphragmatic hernia without mention of obstruction or gangrene Pre-op evaluation- Primary Preoperative examination, unspecified Rupture of anterior cruciate ligament of right knee, subsequent encounter Generalized anxiety disorder 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)- Primary Localization-related (focal) (partial) epilepsy and epileptic syndromes with complex partial seizures, with intractable epilepsy Partial epilepsy with impairment of consciousness, intractable (HCC) Localization-related (focal) (partial) epilepsy and epileptic syndromes with complex partial seizures, with intractable epilepsy S/P brain surgery Other postprocedural status Generalized anxiety disorder 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) Midline shift of brain Pre-op evaluation- Primary Preoperative examination, unspecified Bipolar 2 disorder (HCC) Other bipolar disorders Generalized anxiety disorder Chiari malformation type I (HCC) Compression of brain Depression, unspecified depression type Celiac disease (HCC) Celiac disease Obesity (BMI 30-39.9) Obesity, unspecified Seizure-like activity (HCC) Other convulsions 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) Generalized anxiety disorder- Primary Moderate episode of recurrent major depressive disorder (HCC) Mixed obsessional thoughts and acts Trauma and stressor-related disorder Unspecified adjustment reaction Psychosocial stressors Other psychological or physical stress, not elsewhere classified Borderline personality disorder (HCC) Borderline personality disorder [facility] [place] Diagnosis Pre-operative examination- Primary Preoperative examination, unspecified Rupture of anterior cruciate ligament of right knee, subsequent encounter Generalized anxiety disorder Celiac disease (HCC) Celiac disease Hiatal hernia Diaphragmatic hernia without mention of obstruction or gangrene Pre-op evaluation- Primary Preoperative examination, unspecified Rupture of anterior cruciate ligament of right knee, subsequent encounter Generalized anxiety disorder 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)- Primary Localization-related (focal) (partial) epilepsy and epileptic syndromes with complex partial seizures, with intractable epilepsy Partial epilepsy with impairment of consciousness, intractable (HCC) Localization-related (focal) (partial) epilepsy and epileptic syndromes with complex partial seizures, with intractable epilepsy S/P brain surgery Other postprocedural status Generalized anxiety disorder 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) Midline shift of brain Pre-op evaluation- Primary Preoperative examination, unspecified Bipolar 2 disorder (HCC) Other bipolar disorders Generalized anxiety disorder Chiari malformation type I (HCC) Compression of brain Depression, unspecified depression type Celiac disease (HCC) Celiac disease Obesity (BMI 30-39.9) Obesity, unspecified Seizure-like activity (HCC) Other convulsions 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) Gastroesophageal reflux disease, unspecified whether esophagitis present [facility] this encounter [facility] Diagnosis Pre-operative examination- Primary Preoperative examination, unspecified Rupture of anterior cruciate ligament of right knee, subsequent encounter Generalized anxiety disorder Celiac disease (HCC) Celiac disease Hiatal hernia Diaphragmatic hernia without mention of obstruction or gangrene Pre-op evaluation- Primary Preoperative examination, unspecified Rupture of anterior cruciate ligament of right knee, subsequent encounter Generalized anxiety disorder 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)- Primary Localization-related (focal) (partial) epilepsy and epileptic syndromes with complex partial seizures, with intractable epilepsy Partial epilepsy with impairment of consciousness, intractable (HCC) Localization-related (focal) (partial) epilepsy and epileptic syndromes with complex partial seizures, with intractable epilepsy S/P brain surgery Other postprocedural status Generalized anxiety disorder 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) Midline shift of brain Pre-op evaluation- Primary Preoperative examination, unspecified Bipolar 2 disorder (HCC) Other bipolar disorders Generalized anxiety disorder Chiari malformation type I (HCC) Compression of brain Depression, unspecified depression type Celiac disease (HCC) Celiac disease Obesity (BMI 30-39.9) Obesity, unspecified Seizure-like activity (HCC) Other convulsions 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) Does not have primary care provider- Primary [facility] Diagnosis Pre-operative examination- Primary Preoperative examination, unspecified Rupture of anterior cruciate ligament of right knee, subsequent encounter Generalized anxiety disorder Celiac disease (HCC) Celiac disease Hiatal hernia Diaphragmatic hernia without mention of obstruction or gangrene Pre-op evaluation- Primary Preoperative examination, unspecified Rupture of anterior cruciate ligament of right knee, subsequent encounter Generalized anxiety disorder 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)- Primary Localization-related (focal) (partial) epilepsy and epileptic syndromes with complex partial seizures, with intractable epilepsy Partial epilepsy with impairment of consciousness, intractable (HCC) Localization-related (focal) (partial) epilepsy and epileptic syndromes with complex partial seizures, with intractable epilepsy S/P brain surgery Other postprocedural status Generalized anxiety disorder 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) Pre-op evaluation- Primary Preoperative examination, unspecified Bipolar 2 disorder (HCC) Other bipolar disorders Generalized anxiety disorder Chiari malformation type I (HCC) Compression of brain Depression, unspecified depression type Celiac disease (HCC) Celiac disease Obesity (BMI 30-39.9) Obesity, unspecified Seizure-like activity (HCC) Other convulsions 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) Does not have primary care provider- Primary Hiatal hernia Diaphragmatic hernia without mention of obstruction or gangrene Need for vaccination Need for prophylactic vaccination and inoculation against unspecified single disease Gastroesophageal reflux disease without esophagitis Esophageal reflux Celiac disease (HCC) Celiac disease Moderate episode of recurrent major depressive disorder (HCC) [facility] Pre-operative examination- Primary Preoperative examination, unspecified Rupture of anterior cruciate ligament of right knee, subsequent encounter Generalized anxiety disorder Celiac disease (HCC) Celiac disease Hiatal hernia Diaphragmatic hernia without mention of obstruction or gangrene Pre-op evaluation- Primary Preoperative examination, unspecified Rupture of anterior cruciate ligament of right knee, subsequent encounter Generalized anxiety disorder 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)- Primary Localization-related (focal) (partial) epilepsy and epileptic syndromes with complex partial seizures, with intractable epilepsy Partial epilepsy with impairment of consciousness, intractable (HCC) Localization-related (focal) (partial) epilepsy and epileptic syndromes with complex partial seizures, with intractable epilepsy S/P brain surgery Other postprocedural status Generalized anxiety disorder 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) Pre-op evaluation- Primary Preoperative examination, unspecified Bipolar 2 disorder (HCC) Other bipolar disorders Generalized anxiety disorder Chiari malformation type I (HCC) Compression of brain Depression, unspecified depression type Celiac disease (HCC) Celiac disease Obesity (BMI 30-39.9) Obesity, unspecified Seizure-like activity (HCC) Other convulsions 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, 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, with intractable epilepsy [facility] Diagnosis Pre-operative examination- Primary Preoperative examination, unspecified Rupture of anterior cruciate ligament of right knee, subsequent encounter Generalized anxiety disorder Celiac disease (HCC) Celiac disease Hiatal hernia Diaphragmatic hernia without mention of obstruction or gangrene Pre-op evaluation- Primary Preoperative examination, unspecified Rupture of anterior cruciate ligament of right knee, subsequent encounter Generalized anxiety disorder 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)- Primary Localization-related (focal) (partial) epilepsy and epileptic syndromes with complex partial seizures, with intractable epilepsy Partial epilepsy with impairment of consciousness, intractable (HCC) Localization-related (focal) (partial) epilepsy and epileptic syndromes with complex partial seizures, with intractable epilepsy S/P brain surgery Other postprocedural status Generalized anxiety disorder 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) Pre-op evaluation- Primary Preoperative examination, unspecified Bipolar 2 disorder (HCC) Other bipolar disorders Generalized anxiety disorder Chiari malformation type I (HCC) Compression of brain Depression, unspecified depression type Celiac disease (HCC) Celiac disease Obesity (BMI 30-39.9) Obesity, unspecified Seizure-like activity (HCC) Other convulsions 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 Malignant neoplasm of brain, unspecified site Focal epilepsy with impairment of consciousness, 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, with intractable epilepsy documented in this encounter [facility] note* Diagnosis Pre-operative examination- Primary Preoperative examination, unspecified Rupture of anterior cruciate ligament of right knee, subsequent encounter Generalized anxiety disorder Celiac disease (HCC) Celiac disease Hiatal hernia Diaphragmatic hernia without mention of obstruction or gangrene Pre-op evaluation- Primary Preoperative examination, unspecified Rupture of anterior cruciate ligament of right knee, subsequent encounter Generalized anxiety disorder 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)- Primary Localization-related (focal) (partial) epilepsy and epileptic syndromes with complex partial seizures, with intractable epilepsy Partial epilepsy with impairment of consciousness, intractable (HCC) Localization-related (focal) (partial) epilepsy and epileptic syndromes with complex partial seizures, with intractable epilepsy S/P brain surgery Other postprocedural status Generalized anxiety disorder 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) Pre-op evaluation- Primary Preoperative examination, unspecified Bipolar 2 disorder (HCC) Other bipolar disorders Generalized anxiety disorder Chiari malformation type I (HCC) Compression of brain Depression, unspecified depression type Celiac disease (HCC) Celiac disease Obesity (BMI 30-39.9) Obesity, unspecified Seizure-like activity (HCC) Other convulsions 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) Malignant neoplasm of brain, unspecified site [facility] Diagnosis Pre-operative examination- Primary Preoperative examination, unspecified Rupture of anterior cruciate ligament of right knee, subsequent encounter Generalized anxiety disorder Celiac disease (HCC) Celiac disease Hiatal hernia Diaphragmatic hernia without mention of obstruction or gangrene Pre-op evaluation- Primary Preoperative examination, unspecified Rupture of anterior cruciate ligament of right knee, subsequent encounter Generalized anxiety disorder 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)- Primary Localization-related (focal) (partial) epilepsy and epileptic syndromes with complex partial seizures, with intractable epilepsy Partial epilepsy with impairment of consciousness, intractable (HCC) Localization-related (focal) (partial) epilepsy and epileptic syndromes with complex partial seizures, with intractable epilepsy S/P brain surgery Other postprocedural status Generalized anxiety disorder 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) Pre-op evaluation- Primary Preoperative examination, unspecified Bipolar 2 disorder (HCC) Other bipolar disorders Generalized anxiety disorder Chiari malformation type I (HCC) Compression of brain Depression, unspecified depression type Celiac disease (HCC) Celiac disease Obesity (BMI 30-39.9) Obesity, unspecified Seizure-like activity (HCC) Other convulsions 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, 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, with intractable epilepsy Spells of decreased attentiveness Other general symptoms 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) [facility] Diagnosis Pre-operative examination- Primary Preoperative examination, unspecified Rupture of anterior cruciate ligament of right knee, subsequent encounter Generalized anxiety disorder Celiac disease (HCC) Celiac disease Hiatal hernia Diaphragmatic hernia without mention of obstruction or gangrene Pre-op evaluation- Primary Preoperative examination, unspecified Rupture of anterior cruciate ligament of right knee, subsequent encounter Generalized anxiety disorder 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)- Primary Localization-related (focal) (partial) epilepsy and epileptic syndromes with complex partial seizures, with intractable epilepsy Partial epilepsy with impairment of consciousness, intractable (HCC) Localization-related (focal) (partial) epilepsy and epileptic syndromes with complex partial seizures, with intractable epilepsy S/P brain surgery Other postprocedural status Generalized anxiety disorder 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) Pre-op evaluation- Primary Preoperative examination, unspecified Bipolar 2 disorder (HCC) Other bipolar disorders Generalized anxiety disorder Chiari malformation type I (HCC) Compression of brain Depression, unspecified depression type Celiac disease (HCC) Celiac disease Obesity (BMI 30-39.9) Obesity, unspecified Seizure-like activity (HCC) Other convulsions 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 Unspecified nonpsychotic mental disorder Mixed obsessional thoughts and acts Psychosocial stressors Other psychological or physical stress, not elsewhere classified Severe episode of recurrent major depressive disorder, without psychotic features (HCC) Marijuana use Cannabis abuse, unspecified Encounter for long-term (current) use of medications Encounter for long-term (current) use of other medications [facility] Diagnosis Pre-operative examination- Primary Preoperative examination, unspecified Rupture of anterior cruciate ligament of right knee, subsequent encounter Generalized anxiety disorder Celiac disease (HCC) Celiac disease Hiatal hernia Diaphragmatic hernia without mention of obstruction or gangrene Pre-op evaluation- Primary Preoperative examination, unspecified Rupture of anterior cruciate ligament of right knee, subsequent encounter Generalized anxiety disorder 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)- Primary Localization-related (focal) (partial) epilepsy and epileptic syndromes with complex partial seizures, with intractable epilepsy Partial epilepsy with impairment of consciousness, intractable (HCC) Localization-related (focal) (partial) epilepsy and epileptic syndromes with complex partial seizures, with intractable epilepsy S/P brain surgery Other postprocedural status Generalized anxiety disorder 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) Pre-op evaluation- Primary Preoperative examination, unspecified Bipolar 2 disorder (HCC) Other bipolar disorders Generalized anxiety disorder Chiari malformation type I (HCC) Compression of brain Depression, unspecified depression type Celiac disease (HCC) Celiac disease Obesity (BMI 30-39.9) Obesity, unspecified Seizure-like activity (HCC) Other convulsions 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) Altered bowel function Other symptoms involving digestive system Gastroesophageal reflux disease without esophagitis Esophageal reflux Aphthous, ulcer oral [facility] Diagnosis Pre-operative examination- Primary Preoperative examination, unspecified Rupture of anterior cruciate ligament of right knee, subsequent encounter Generalized anxiety disorder Celiac disease (HCC) Celiac disease Hiatal hernia Diaphragmatic hernia without mention of obstruction or gangrene Pre-op evaluation- Primary Preoperative examination, unspecified Rupture of anterior cruciate ligament of right knee, subsequent encounter Generalized anxiety disorder 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)- Primary Localization-related (focal) (partial) epilepsy and epileptic syndromes with complex partial seizures, with intractable epilepsy Partial epilepsy with impairment of consciousness, intractable (HCC) Localization-related (focal) (partial) epilepsy and epileptic syndromes with complex partial seizures, with intractable epilepsy S/P brain surgery Other postprocedural status Generalized anxiety disorder 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) Pre-op evaluation- Primary Preoperative examination, unspecified Bipolar 2 disorder (HCC) Other bipolar disorders Generalized anxiety disorder Chiari malformation type I (HCC) Compression of brain Depression, unspecified depression type Celiac disease (HCC) Celiac disease Obesity (BMI 30-39.9) Obesity, unspecified Seizure-like activity (HCC) Other convulsions 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, 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, with intractable epilepsy [facility] Diagnosis Pre-operative examination- Primary Preoperative examination, unspecified Rupture of anterior cruciate ligament of right knee, subsequent encounter Generalized anxiety disorder Celiac disease (HCC) Celiac disease Hiatal hernia Diaphragmatic hernia without mention of obstruction or gangrene Pre-op evaluation- Primary Preoperative examination, unspecified Rupture of anterior cruciate ligament of right knee, subsequent encounter Generalized anxiety disorder 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)- Primary Localization-related (focal) (partial) epilepsy and epileptic syndromes with complex partial seizures, with intractable epilepsy Partial epilepsy with impairment of consciousness, intractable (HCC) Localization-related (focal) (partial) epilepsy and epileptic syndromes with complex partial seizures, with intractable epilepsy S/P brain surgery Other postprocedural status Generalized anxiety disorder 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) Pre-op evaluation- Primary Preoperative examination, unspecified Bipolar 2 disorder (HCC) Other bipolar disorders Generalized anxiety disorder Chiari malformation type I (HCC) Compression of brain Depression, unspecified depression type Celiac disease (HCC) Celiac disease Obesity (BMI 30-39.9) Obesity, unspecified Seizure-like activity (HCC) Other convulsions 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 Unspecified nonpsychotic mental disorder documented [facility] Diagnosis Pre-operative examination- Primary Preoperative examination, unspecified Rupture of anterior cruciate ligament of right knee, subsequent encounter Generalized anxiety disorder Celiac disease (HCC) Celiac disease Hiatal hernia Diaphragmatic hernia without mention of obstruction or gangrene Pre-op evaluation- Primary Preoperative examination, unspecified Rupture of anterior cruciate ligament of right knee, subsequent encounter Generalized anxiety disorder 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)- Primary Localization-related (focal) (partial) epilepsy and epileptic syndromes with complex partial seizures, with intractable epilepsy Partial epilepsy with impairment of consciousness, intractable (HCC) Localization-related (focal) (partial) epilepsy and epileptic syndromes with complex partial seizures, with intractable epilepsy S/P brain surgery Other postprocedural status Generalized anxiety disorder 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) Pre-op evaluation- Primary Preoperative examination, unspecified Bipolar 2 disorder (HCC) Other bipolar disorders Generalized anxiety disorder Chiari malformation type I (HCC) Compression of brain Depression, unspecified depression type Celiac disease (HCC) Celiac disease Obesity (BMI 30-39.9) Obesity, unspecified Seizure-like activity (HCC) Other convulsions 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, 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, with intractable epilepsy [facility] Diagnosis Pre-operative examination- Primary Preoperative examination, unspecified Rupture of anterior cruciate ligament of right knee, subsequent encounter Generalized anxiety disorder Celiac disease (HCC) Celiac disease Hiatal hernia Diaphragmatic hernia without mention of obstruction or gangrene Pre-op evaluation- Primary Preoperative examination, unspecified Rupture of anterior cruciate ligament of right knee, subsequent encounter Generalized anxiety disorder 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)- Primary Localization-related (focal) (partial) epilepsy and epileptic syndromes with complex partial seizures, with intractable epilepsy Partial epilepsy with impairment of consciousness, intractable (HCC) Localization-related (focal) (partial) epilepsy and epileptic syndromes with complex partial seizures, with intractable epilepsy S/P brain surgery Other postprocedural status Generalized anxiety disorder 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) Pre-op evaluation- Primary Preoperative examination, unspecified Bipolar 2 disorder (HCC) Other bipolar disorders Generalized anxiety disorder Chiari malformation type I (HCC) Compression of brain Depression, unspecified depression type Celiac disease (HCC) Celiac disease Obesity (BMI 30-39.9) Obesity, unspecified Seizure-like activity (HCC) Other convulsions 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, without psychotic features (HCC)- Primary Mixed obsessional thoughts and acts Psychosocial stressors Other psychological or physical stress, not elsewhere classified Encounter for long-term (current) use of medications Encounter for long-term (current) use of other medications Insomnia due to mental condition Unspecified nonpsychotic mental disorder documented in this encounter [facility] for referral (narrative)* Diagnostic Procedure Only (Routine) - Pending Review Specialty Diagnoses / Procedures Referred By Bryanac dariela Referred To Contact XR IMAGING Diagnoses Pain Procedures XR HIP GENERAL 3V PELV/AP/LAT RIGHT RADEX HIP UNILATERAL WITH PELVIS 2-3 VIEWS Jaida Chang MD [address] [place] [address] Xr Imaging Referral ID Status Reason Start Date Expiration Date Visits Requested Visits Authorized [id number] Pending Review Auto-Generat ed Referral 02/28/2022 03/29/2023 1 1 [facility] for referral (narrative)* Outpatient Procedure (Routine) - Pending Review Specialty Diagnoses / Procedures Referred By Alena lyle Referred To Contact [facility] Diagnoses Spells of decreased attentiveness Procedures EPIL EEG LEAD PLACEMENT EEG EXTENDED MONITORING 61-119 MINUTES ELECTROENCEPHALOGRAM REC COMA/SLEEP ONLY Nevin Soto, 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 [address] [place] [address] Neu[facility] [place] [address] [id number] Referral ID Status Reason Start Date Expiration Date Visits Requested Visits Authorized [id number] Pending Review Auto-Generat ed Referral 03/19/2023 [address] [facility] for referral (narrative)* Outpatient Procedure (Routine) - Closed Specialty Diagnoses / Procedures Referred By Contac t Referred To Contact [facility] Diagnoses Pre-op evaluation Procedures ECG COMPLETE ECG ROUTINE ECG W/LEAST 12 LDS W/I&R Fidencio Armstrong APRN.CNP [address] [place] [address] [facility] [address] [id number] [place] [id number] Referral ID Status Reason Start Date Expiration Date V isits Requested Visits Authorized [id number] Closed Auto-Generate d Referral 10/23/2022 10/23/2023 1 1 [facility] for referral (narrative)* Diagnostic Procedure Only (Routine) - Closed Specialty Diagnoses / Procedures Referred By Contac t Referred To Contact XR IMAGING Diagnoses Pain Procedures XR HIP GENERAL 3V PELV/AP/LAT RIGHT RADEX HIP UNILATERAL WITH PELVIS 2-3 VIEWS Jaida Chang MD [address] [place] [address] [place] [id number] Referral ID Status Reason Start Date Expiration Date V isits Requested Visits Authorized [id number] Closed Auto-Generate d Referral 02/28/2022 03/29/2023 1 1 [facility] for referral (narrative)* Diagnostic Procedure Only (Routine) - Authorized Specialty Diagnoses / Procedures Referred By Contac t Referred To Contact US IMAGING Diagnoses Generalized abdominal pain Procedures US ABD RIGHT UPPER QUADRANT US ABDOMINAL REAL TIME W/IMAGE LIMITED Dionte Fu MD [address] [place] [address] [place] [id number] Referral ID Status Reason Start Date Expiration Date Visits Requested Visits Authorized [id number] Authorized Auto-Generat ed Referral 03/17/2025 1 1 [facility] for visit Narrative* Consult, Test, Treat (Routine) - Closed Specialty Diagnoses / Procedures Referred By Contac t Referred To Contact ADULT PSYCHIATRY Diagnoses MDD (major depressive disorder), recurrent episode, moderate (HCC) Generalized anxiety disorder Borderline personality disorder (HCC) Procedures CONSULT TO INTENSIVE OUTPATIENT PROGRAM (IOP) OFFICE/OUTPATIENT [facility] 60 MINUTES Tami Pastor PSYD [address] [place] [address] Phone: tel: [facility] [address] [place] [id number] Phone: tel: fax: Referral ID Status Reason Start Date Expiration Date V isits Requested Visits Authorized [id number] Closed PCP Requested Referral 04/29/2024 04/29/2025 1 1 [facility] for visit Narrative* MRI/CT (Routine) - Closed Specialty Diagnoses / Procedures Referred By Contac t Referred To Contact MR IMAGING Diagnoses Low grade glioma of brain (HCC) Procedures MRI BRAIN WO/W IVCON MRI BRAIN BRAIN STEM W/O W/CONTRAST MATERIAL Saul Knox PA-C [address] [place] [address] Phone: tel: fax: MR IMAGING [id number] Referral ID Status Reason Start Date Expiration Date V isits Requested Visits Authorized [id number] Closed Auto-Generate d Referral 09/16/2024 10/16/2024 1 1 [facility] Advance Directives No Advanced Directives Records FoundDocuments on File Type Date Recorded Patient Collections Professional Expl anation Advance Directive(s) 09/21/2020 8:54 AM Documents on File Type Date Recorded Patient Collections Professional Expl anation Advance Directive(s) 09/21/2020 8:54 AM Advance Directive Response Recorded Date/ Time Living Will No November 27, 2022 10:46am Power of Curriculum Assistant No November 27 10:46am Reason for Referral Specialty Diagnoses / Procedures Referred By Contac t Referred To Contact MR IMAGING Diagnoses S/P right knee surgery Procedures MRI KNEE WO IVCON RT MRI ANY JT LOWER EXTREM W/O CONTRAST MATRL Jaida Chang MD [address] [place] [address] Mr Imaging Referral ID Status Reason Start Date Expiration Date Visits Requested Visits Authorized [id number] Pending Review Auto-Generat ed Referral 08/16/2021 09/15/2022 1 1 Referral ID Status Reason Start Date Expiration Date V isits Requested Visits Authorized [id number] Closed Auto-Generate d Referral 08/16/2021 09/15/2021 1 1 Specialty Diagnoses / Procedures Referred By Contac t Referred To Contact Diagnoses S/P right knee surgery Tear of lateral meniscus of right knee, unspecified tear type, unspecified whether old or current tear, initial encounter Cyclops lesion of right knee Procedures REFER TO PACC - PRE ANESTHESIA CONSULTATION CLINIC OFFICE/OUTPATIENT [facility] 60-74 MINUTES Jaida Chang MD [address] [place] [address] Referral ID Status Reason Start Date Expiration Date V isits Requested Visits Authorized [id number] Authorized 09/11/2021 12/10/2021 1 1 Specialty Diagnoses / Procedures Referred By Contac t Referred To Contact Neurology Diagnoses Mental status change resolved Procedures CONSULT TO NEUROLOGY OFFICE/OUTPATIENT [facility] 60-[place] [address] [place] [address] Referral ID Status Reason Start Date Expiration Date Visits Requested Visits Authorized [id number] Authorized PCP Requested Referral 01/30/2023 1 1 Specialty Diagnoses / Procedures Referred By Contac t Referred To Contact Neurology Diagnoses Spells of decreased attentiveness Near syncope Procedures CONSULT TO NEUROLOGY OFFICE/OUTPATIENT NEW HIGH MDM 60-74 MINUTES Lv Hernandez DO [address] [place] [address] Referral ID Status Reason Start Date Expiration Date Visits Requested Visits Authorized [id number] Authorized PCP Requested Referral 2 02/21/2023 1 1 Specialty Diagnoses / Procedures Referred By Contac t Referred To Contact [facility] Diagnoses Generalized anxiety disorder Spells of decreased attentiveness Near syncope Procedures EPIL EEG LONG EEG EXTENDED MONITORING 61-119 MINUTES ELECTROENCEPHALOGRAM REC COMA/SLEEP ONLY Lv Hernandez DO [address] [place] [address] [address] Referral ID Status Reason Start Date Expiration Date Visits Requested Visits Authorized [id number] Pending Review Auto-Generat ed Referral 2 02/21/2023 1 1 Specialty Diagnoses / Procedures Referred By Contac t Referred To Contact MR IMAGING Diagnoses Generalized anxiety disorder Spells of decreased attentiveness Near syncope Procedures MRI BRAIN WO/W IVCON MRI BRAIN BRAIN STEM W/O W/CONTRAST MATERIAL Lv Hernandez DO [address] [place] [address] Mr Imaging Referral ID Status Reason Start Date Expiration Date V isits Requested Visits Authorized [id number] Open Auto-Generate d Referral 02/21/2022 03/18/2022 1 1 Specialty Diagnoses / Procedures Referred By Contac t Referred To Contact Neurosurgery Diagnoses 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) Procedures CONSULT TO NEUROSURGERY OFFICE/OUTPATIENT NEW HIGH MDM 60-74 MINUTES Lv Hernandez DO [address] [place] [address] Referral ID Status Reason Start Date Expiration Date Visits Requested Visits Authorized [id number] Authorized PCP Requested Referral 2 03/18/2023 1 1 Specialty Diagnoses / Procedures Referred By Contac t Referred To Contact Diagnoses Partial epilepsy with impairment of consciousness, intractable (HCC) Procedures REFER TO PACC - PRE ANESTHESIA CONSULTATION CLINIC OFFICE/OUTPATIENT [facility] MDM 60-74 MINUTES Saul Knox PA-C [address] [place] [address] Referral ID Status Reason Start Date Expiration Date Visits Requested Visits Authorized [id number] Authorized PCP Requested Referral 08/15/2022 08/15/2023 1 1 Specialty Diagnoses / Procedures Referred By Contac t Referred To Contact MR IMAGING Diagnoses Other specified postprocedural states Procedures MRI BRAIN WO/W IVCON MRI BRAIN BRAIN STEM W/O W/CONTRAST MATERIAL Saul Knox PA-C [address] [place] [address] Mr Imaging Referral ID Status Reason Start Date Expiration Date Visits Requested Visits Authorized [id number] Pending Review Auto-Generat ed Referral 05/23/2023 12/20/2023 1 1 Specialty Diagnoses / Procedures Referred By Contac t Referred To Contact MR IMAGING Diagnoses Pain in right hip Procedures MRI HIP WO IVCON RT MRI ANY JT LOWER EXTREM W/O CONTRAST Jaida Ferrari MD [address] [place] [address] Mr Imaging [id number] Referral ID Status Reason Start Date Expiration Date V isits Requested Visits Authorized [id number] Closed Auto-Generate d Referral 05/24/2022 04/27/2023 1 1 Specialty Diagnoses / Procedures Referred By Contac t Referred To Contact MR IMAGING Diagnoses Low grade glioma of brain (HCC) Procedures MRI BRAIN WO/W IVCON MRI BRAIN BRAIN STEM W/O W/CONTRAST MATERIAL Saul Knox PA-C [address] [facility] [place] [address] [place] [address] Referral ID Status Reason Start Date Expiration Date Visits Requested Visits Authorized [id number] Pending Review Auto-Generat ed Referral 09/16/2024 10/16/2024 1 1 Specialty Diagnoses / Procedures Referred By Contac t Referred To Contact MR IMAGING Diagnoses Other specified postprocedural states Procedures MRI BRAIN WO/W IVCON MRI BRAIN BRAIN STEM W/O W/CONTRAST MATERIAL Saul Knox PA-C [address] [place] [address] Mr Imaging [place] [address] Referral ID Status Reason Start Date Expiration Date V isits Requested Visits Authorized [id number] Closed Auto-Generate d Referral 05/23/2023 12/20/2023 1 1 Specialty Diagnoses / Procedures Referred By Contac t Referred To Contact Psychology Diagnoses Generalized anxiety disorder Bipolar 2 disorder (HCC) 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) Procedures CONSULT TO PSYCHOLOGY OFFICE/OUTPATIENT [facility] MDM 60 MINUTES Dionte Fu MD [address] [place] [address] Referral ID Status Reason Start Date Expiration Date Visits Requested Visits Authorized [id number] Pending Review PCP Requested Referral 10/24/2023 10/23/2024 1 1 Specialty Diagnoses / Procedures Referred By Contac t Referred To Contact MR IMAGING Diagnoses Generalized anxiety disorder Spells of decreased attentiveness Near syncope Procedures MRI BRAIN WO/W IVCON MRI BRAIN BRAIN STEM W/O W/CONTRAST MATERIAL Lv Hernandez DO [address] [place] [id number] Mr Imaging [place] [address] Referral ID Status Reason Start Date Expiration Date V isits Requested Visits Authorized [id number] Closed Auto-Generate d Referral 04/28/2021 04/27/2022 1 1 Specialty Diagnoses / Procedures Referred By Contac t Referred To Contact Diagnoses 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) Iftikhar Cavanaugh APRN.[employer] [address] [place] [id number] Referral ID Status Reason Start Date Expiration Date V isits Requested Visits Authorized [id number] Authorized 04/01/2024 04/01/2025 1 1 Specialty Diagnoses / Procedures Referred By Contac t Referred To Contact ADULT PSYCHIATRY Diagnoses MDD (major depressive disorder), recurrent episode, moderate (HCC) Generalized anxiety disorder Borderline personality disorder (HCC) Procedures CONSULT TO INTENSIVE OUTPATIENT PROGRAM (IOP) OFFICE/OUTPATIENT [facility] 60 MINUTES Tami Pastor PSYD [address] [place] [id number] [facility] [address] [place] [address] Referral ID Status Reason Start Date Expiration Date Visits Requested Visits Authorized [id number] Pending Review PCP Requested Referral 04/29/2024 04/29/2025 1 1 Specialty Diagnoses / Procedures Referred By Contac t Referred To Contact Diagnoses Severe episode of recurrent major depressive disorder, without psychotic features (HCC) Borderline personality disorder (HCC) Kang Buenrostro, 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 [address] [place] [address] Referral ID Status Reason Start Date Expiration Date Visits Re quested Visits Authorized [id number] Closed 1 1 Specialty Diagnoses / Procedures Referred By Contac t Referred To Contact Diagnoses Encounter for counseling for [id number] transition Procedures ESTABLISH WITH PRIMARY CARE NEW PATIENT OFFICE/OUTPATIENT [facility] 60 MINUTES Tamela Edmondson PA-C [address] [place] [address] Referral ID Status Reason Start Date Expiration Date Visits Requested Visits Authorized [id number] Authorized PCP Requested Referral 05/10/2024 05/10/2025 1 1 Specialty Diagnoses / Procedures Referred By Alena t Referred To Contact Diagnoses Borderline personality disorder (HCC) Severe episode of recurrent major depressive disorder, without psychotic features (HCC) Kang Buenrostro, 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 [address] [place] [address] Referral ID Status Reason Start Date Expiration Date V isits Requested Visits Authorized [id number] Pending Review 1 1 Summary Purpose Family History No Family History Records FoundNo Family History Records FoundNo Family History Records FoundNo Family History Records FoundNo Family History Records FoundNo Family History Records FoundNo Family History Records FoundNo Family History Records Found Chief Complaint and Reason for Visit Chief Complaint SI Additional Source Comments Source Comments (unrecognize d section and content) In the event this informatio n is protected by the Federal Confidentiality of Alcohol and Drug Abuse Patient Records regulations: The Federal rules restrict any use of the information to criminally investigate or prosecute any alcohol or drug abuse patient.[facility] CenterIn the event this information is protected by the Federal Confidentiality of Alcohol and Drug Abuse Patient Records regulations: The Federal rules restrict any use of the information to criminally investigate or prosecute any alcohol or drug abuse patient.[facility] CenterIn the event this information is protected by the Federal Confidentiality of Alcohol and Drug Abuse Patient Records regulations: The Federal rules restrict any use of the information to criminally investigate or prosecute any alcohol or drug abuse patient.[facility] CenterIn the event this information is protected by the Federal Confidentiality of Alcohol and Drug Abuse Patient Records regulations: The Federal rules restrict any use of the information to criminally investigate or prosecute any alcohol or drug abuse patient.[facility] CenterIn the event this information is protected by the Federal Confidentiality of Alcohol and Drug Abuse Patient Records regulations: The Federal rules restrict any use of the information to criminally investigate or prosecute any alcohol or drug abuse patient.[facility] CenterIn the event this information is protected by the Federal Confidentiality of Alcohol and Drug Abuse Patient Records regulations: The Federal rules restrict any use of the information to criminally investigate or prosecute any alcohol or drug abuse patient.[facility] CenterIn the event this information is protected by the Federal Confidentiality of Alcohol and Drug Abuse Patient Records regulations: The Federal rules restrict any use of the information to criminally investigate or prosecute any alcohol or drug abuse patient.[facility] CenterIn the event this information is protected by the Federal Confidentiality of Alcohol and Drug Abuse Patient Records regulations: The Federal rules restrict any use of the information to criminally investigate or prosecute any alcohol or drug abuse patient.[facility] CenterIn the event this information is protected by the Federal Confidentiality of Alcohol and Drug Abuse Patient Records regulations: The Federal rules restrict any use of the information to criminally investigate or prosecute any alcohol or drug abuse patient.[facility] CenterIn the event this information is protected by the Federal Confidentiality of Alcohol and Drug Abuse Patient Records regulations: The Federal rules restrict any use of the information to criminally investigate or prosecute any alcohol or drug abuse patient.[facility] CenterIn the event this information is protected by the Federal Confidentiality of Alcohol and Drug Abuse Patient Records regulations: The Federal rules restrict any use of the information to criminally investigate or prosecute any alcohol or drug abuse patient.[facility] CenterIn the event this information is protected by the Federal Confidentiality of Alcohol and Drug Abuse Patient Records regulations: The Federal rules restrict any use of the information to criminally investigate or prosecute any alcohol or drug abuse patient.[facility] CenterIn the event this information is protected by the Federal Confidentiality of Alcohol and Drug Abuse Patient Records regulations: The Federal rules restrict any use of the information to criminally investigate or prosecute any alcohol or drug abuse patient.[facility] CenterIn the event this information is protected by the Federal Confidentiality of Alcohol and Drug Abuse Patient Records regulations: The Federal rules restrict any use of the information to criminally investigate or prosecute any alcohol or drug abuse patient.[facility] CenterIn the event this information is protected by the Federal Confidentiality of Alcohol and Drug Abuse Patient Records regulations: The Federal rules restrict any use of the information to criminally investigate or prosecute any alcohol or drug abuse patient.[facility] CenterIn the event this information is protected by the Federal Confidentiality of Alcohol and Drug Abuse Patient Records regulations: The Federal rules restrict any use of the information to criminally investigate or prosecute any alcohol or drug abuse patient.[facility] CenterIn the event this information is protected by the Federal Confidentiality of Alcohol and Drug Abuse Patient Records regulations: The Federal rules restrict any use of the information to criminally investigate or prosecute any alcohol or drug abuse patient.[facility] CenterIn the event this information is protected by the Federal Confidentiality of Alcohol and Drug Abuse Patient Records regulations: The Federal rules restrict any use of the information to criminally investigate or prosecute any alcohol or drug abuse patient.[facility] CenterIn the event this information is protected by the Federal Confidentiality of Alcohol and Drug Abuse Patient Records regulations: The Federal rules restrict any use of the information to criminally investigate or prosecute any alcohol or drug abuse patient.[facility] CenterIn the event this information is protected by the Federal Confidentiality of Alcohol and Drug Abuse Patient Records regulations: The Federal rules restrict any use of the information to criminally investigate or prosecute any alcohol or drug abuse patient.[facility] CenterIn the event this information is protected by the Federal Confidentiality of Alcohol and Drug Abuse Patient Records regulations: The Federal rules restrict any use of the information to criminally investigate or prosecute any alcohol or drug abuse patient.[facility] CenterIn the event this information is protected by the Federal Confidentiality of Alcohol and Drug Abuse Patient Records regulations: The Federal rules restrict any use of the information to criminally investigate or prosecute any alcohol or drug abuse patient.[facility] CenterIn the event this information is protected by the Federal Confidentiality of Alcohol and Drug Abuse Patient Records regulations: The Federal rules restrict any use of the information to criminally investigate or prosecute any alcohol or drug abuse patient.[facility] CenterIn the event this information is protected by the Federal Confidentiality of Alcohol and Drug Abuse Patient Records regulations: The Federal rules restrict any use of the information to criminally investigate or prosecute any alcohol or drug abuse patient.[facility] CenterIn the event this information is protected by the Federal Confidentiality of Alcohol and Drug Abuse Patient Records regulations: The Federal rules restrict any use of the information to criminally investigate or prosecute any alcohol or drug abuse patient.[facility] CenterIn the event this information is protected by the Federal Confidentiality of Alcohol and Drug Abuse Patient Records regulations: The Federal rules restrict any use of the information to criminally investigate or prosecute any alcohol or drug abuse patient.[facility] CenterIn the event this information is protected by the Federal Confidentiality of Alcohol and Drug Abuse Patient Records regulations: The Federal rules restrict any use of the information to criminally investigate or prosecute any alcohol or drug abuse patient.[facility] CenterIn the event this information is protected by the Federal Confidentiality of Alcohol and Drug Abuse Patient Records regulations: The Federal rules restrict any use of the information to criminally investigate or prosecute any alcohol or drug abuse patient.[facility] CenterIn the event this information is protected by the Federal Confidentiality of Alcohol and Drug Abuse Patient Records regulations: The Federal rules restrict any use of the information to criminally investigate or prosecute any alcohol or drug abuse patient.[facility] CenterIn the event this information is protected by the Federal Confidentiality of Alcohol and Drug Abuse Patient Records regulations: The Federal rules restrict any use of the information to criminally investigate or prosecute any alcohol or drug abuse patient.[facility] CenterIn the event this information is protected by the Federal Confidentiality of Alcohol and Drug Abuse Patient Records regulations: The Federal rules restrict any use of the information to criminally investigate or prosecute any alcohol or drug abuse patient.[facility] CenterIn the event this information is protected by the Federal Confidentiality of Alcohol and Drug Abuse Patient Records regulations: The Federal rules restrict any use of the information to criminally investigate or prosecute any alcohol or drug abuse patient.[facility] CenterIn the event this information is protected by the Federal Confidentiality of Alcohol and Drug Abuse Patient Records regulations: The Federal rules restrict any use of the information to criminally investigate or prosecute any alcohol or drug abuse patient.[facility] CenterIn the event this information is protected by the Federal Confidentiality of Alcohol and Drug Abuse Patient Records regulations: The Federal rules restrict any use of the information to criminally investigate or prosecute any alcohol or drug abuse patient.[facility] CenterIn the event this information is protected by the Federal Confidentiality of Alcohol and Drug Abuse Patient Records regulations: The Federal rules restrict any use of the information to criminally investigate or prosecute any alcohol or drug abuse patient.[facility] CenterIn the event this information is protected by the Federal Confidentiality of Alcohol and Drug Abuse Patient Records regulations: The Federal rules restrict any use of the information to criminally investigate or prosecute any alcohol or drug abuse patient.[facility] CenterIn the event this information is protected by the Federal Confidentiality of Alcohol and Drug Abuse Patient Records regulations: The Federal rules restrict any use of the information to criminally investigate or prosecute any alcohol or drug abuse patient.[facility] CenterIn the event this information is protected by the Federal Confidentiality of Alcohol and Drug Abuse Patient Records regulations: The Federal rules restrict any use of the information to criminally investigate or prosecute any alcohol or drug abuse patient.[facility] CenterIn the event this information is protected by the Federal Confidentiality of Alcohol and Drug Abuse Patient Records regulations: The Federal rules restrict any use of the information to criminally investigate or prosecute any alcohol or drug abuse patient.[facility] CenterIn the event this information is protected by the Federal Confidentiality of Alcohol and Drug Abuse Patient Records regulations: The Federal rules restrict any use of the information to criminally investigate or prosecute any alcohol or drug abuse patient.[facility] CenterIn the event this information is protected by the Federal Confidentiality of Alcohol and Drug Abuse Patient Records regulations: The Federal rules restrict any use of the information to criminally investigate or prosecute any alcohol or drug abuse patient.[facility] CenterIn the event this information is protected by the Federal Confidentiality of Alcohol and Drug Abuse Patient Records regulations: The Federal rules restrict any use of the information to criminally investigate or prosecute any alcohol or drug abuse patient.[facility] CenterIn the event this information is protected by the Federal Confidentiality of Alcohol and Drug Abuse Patient Records regulations: The Federal rules restrict any use of the information to criminally investigate or prosecute any alcohol or drug abuse patient.[facility] CenterIn the event this information is protected by the Federal Confidentiality of Alcohol and Drug Abuse Patient Records regulations: The Federal rules restrict any use of the information to criminally investigate or prosecute any alcohol or drug abuse patient.[facility] CenterIn the event this information is protected by the Federal Confidentiality of Alcohol and Drug Abuse Patient Records regulations: The Federal rules restrict any use of the information to criminally investigate or prosecute any alcohol or drug abuse patient.[facility] CenterIn the event this information is protected by the Federal Confidentiality of Alcohol and Drug Abuse Patient Records regulations: The Federal rules restrict any use of the information to criminally investigate or prosecute any alcohol or drug abuse patient.[facility] CenterIn the event this information is protected by the Federal Confidentiality of Alcohol and Drug Abuse Patient Records regulations: The Federal rules restrict any use of the information to criminally investigate or prosecute any alcohol or drug abuse patient.[facility] CenterIn the event this information is protected by the Federal Confidentiality of Alcohol and Drug Abuse Patient Records regulations: The Federal rules restrict any use of the information to criminally investigate or prosecute any alcohol or drug abuse patient.[facility] CenterIn the event this information is protected by the Federal Confidentiality of Alcohol and Drug Abuse Patient Records regulations: The Federal rules restrict any use of the information to criminally investigate or prosecute any alcohol or drug abuse patient.[facility] CenterIn the event this information is protected by the Federal Confidentiality of Alcohol and Drug Abuse Patient Records regulations: The Federal rules restrict any use of the information to criminally investigate or prosecute any alcohol or drug abuse patient.[facility] CenterIn the event this information is protected by the Federal Confidentiality of Alcohol and Drug Abuse Patient Records regulations: The Federal rules restrict any use of the information to criminally investigate or prosecute any alcohol or drug abuse patient.[facility] CenterIn the event this information is protected by the Federal Confidentiality of Alcohol and Drug Abuse Patient Records regulations: The Federal rules restrict any use of the information to criminally investigate or prosecute any alcohol or drug abuse patient.[facility] CenterIn the event this information is protected by the Federal Confidentiality of Alcohol and Drug Abuse Patient Records regulations: The Federal rules restrict any use of the information to criminally investigate or prosecute any alcohol or drug abuse patient.[facility] CenterIn the event this information is protected by the Federal Confidentiality of Alcohol and Drug Abuse Patient Records regulations: The Federal rules restrict any use of the information to criminally investigate or prosecute any alcohol or drug abuse patient.[facility] CenterIn the event this information is protected by the Federal Confidentiality of Alcohol and Drug Abuse Patient Records regulations: The Federal rules restrict any use of the information to criminally investigate or prosecute any alcohol or drug abuse patient.[facility] CenterIn the event this information is protected by the Federal Confidentiality of Alcohol and Drug Abuse Patient Records regulations: The Federal rules restrict any use of the information to criminally investigate or prosecute any alcohol or drug abuse patient.[facility] CenterIn the event this information is protected by the Federal Confidentiality of Alcohol and Drug Abuse Patient Records regulations: The Federal rules restrict any use of the information to criminally investigate or prosecute any alcohol or drug abuse patient.[facility] CenterIn the event this information is protected by the Federal Confidentiality of Alcohol and Drug Abuse Patient Records regulations: The Federal rules restrict any use of the information to criminally investigate or prosecute any alcohol or drug abuse patient.[facility] CenterIn the event this information is protected by the Federal Confidentiality of Alcohol and Drug Abuse Patient Records regulations: The Federal rules restrict any use of the information to criminally investigate or prosecute any alcohol or drug abuse patient.[facility] CenterIn the event this information is protected by the Federal Confidentiality of Alcohol and Drug Abuse Patient Records regulations: The Federal rules restrict any use of the information to criminally investigate or prosecute any alcohol or drug abuse patient.[facility] CenterIn the event this information is protected by the Federal Confidentiality of Alcohol and Drug Abuse Patient Records regulations: The Federal rules restrict any use of the information to criminally investigate or prosecute any alcohol or drug abuse patient.[facility] CenterIn the event this information is protected by the Federal Confidentiality of Alcohol and Drug Abuse Patient Records regulations: The Federal rules restrict any use of the information to criminally investigate or prosecute any alcohol or drug abuse patient.[facility] CenterIn the event this information is protected by the Federal Confidentiality of Alcohol and Drug Abuse Patient Records regulations: The Federal rules restrict any use of the information to criminally investigate or prosecute any alcohol or drug abuse patient.[facility] CenterIn the event this information is protected by the Federal Confidentiality of Alcohol and Drug Abuse Patient Records regulations: The Federal rules restrict any use of the information to criminally investigate or prosecute any alcohol or drug abuse patient.[facility] CenterIn the event this information is protected by the Federal Confidentiality of Alcohol and Drug Abuse Patient Records regulations: The Federal rules restrict any use of the information to criminally investigate or prosecute any alcohol or drug abuse patient.[facility] CenterIn the event this information is protected by the Federal Confidentiality of Alcohol and Drug Abuse Patient Records regulations: The Federal rules restrict any use of the information to criminally investigate or prosecute any alcohol or drug abuse patient.[facility] CenterIn the event this information is protected by the Federal Confidentiality of Alcohol and Drug Abuse Patient Records regulations: The Federal rules restrict any use of the information to criminally investigate or prosecute any alcohol or drug abuse patient.[facility] CenterIn the event this information is protected by the Federal Confidentiality of Alcohol and Drug Abuse Patient Records regulations: The Federal rules restrict any use of the information to criminally investigate or prosecute any alcohol or drug abuse patient.[facility] CenterIn the event this information is protected by the Federal Confidentiality of Alcohol and Drug Abuse Patient Records regulations: The Federal rules restrict any use of the information to criminally investigate or prosecute any alcohol or drug abuse patient.[facility] CenterIn the event this information is protected by the Federal Confidentiality of Alcohol and Drug Abuse Patient Records regulations: The Federal rules restrict any use of the information to criminally investigate or prosecute any alcohol or drug abuse patient.[facility] CenterIn the event this information is protected by the Federal Confidentiality of Alcohol and Drug Abuse Patient Records regulations: The Federal rules restrict any use of the information to criminally investigate or prosecute any alcohol or drug abuse patient.[facility] CenterIn the event this information is protected by the Federal Confidentiality of Alcohol and Drug Abuse Patient Records regulations: The Federal rules restrict any use of the information to criminally investigate or prosecute any alcohol or drug abuse patient.[facility] CenterIn the event this information is protected by the Federal Confidentiality of Alcohol and Drug Abuse Patient Records regulations: The Federal rules restrict any use of the information to criminally investigate or prosecute any alcohol or drug abuse patient.[facility] CenterIn the event this information is protected by the Federal Confidentiality of Alcohol and Drug Abuse Patient Records regulations: The Federal rules restrict any use of the information to criminally investigate or prosecute any alcohol or drug abuse patient.[facility] CenterIn the event this information is protected by the Federal Confidentiality of Alcohol and Drug Abuse Patient Records regulations: The Federal rules restrict any use of the information to criminally investigate or prosecute any alcohol or drug abuse patient.[facility] CenterIn the event this information is protected by the Federal Confidentiality of Alcohol and Drug Abuse Patient Records regulations: The Federal rules restrict any use of the information to criminally investigate or prosecute any alcohol or drug abuse patient.[facility] CenterIn the event this information is protected by the Federal Confidentiality of Alcohol and Drug Abuse Patient Records regulations: The Federal rules restrict any use of the information to criminally investigate or prosecute any alcohol or drug abuse patient.[facility] CenterIn the event this information is protected by the Federal Confidentiality of Alcohol and Drug Abuse Patient Records regulations: The Federal rules restrict any use of the information to criminally investigate or prosecute any alcohol or drug abuse patient.[facility] CenterIn the event this information is protected by the Federal Confidentiality of Alcohol and Drug Abuse Patient Records regulations: The Federal rules restrict any use of the information to criminally investigate or prosecute any alcohol or drug abuse patient.[facility] CenterIn the event this information is protected by the Federal Confidentiality of Alcohol and Drug Abuse Patient Records regulations: The Federal rules restrict any use of the information to criminally investigate or prosecute any alcohol or drug abuse patient.[facility] CenterIn the event this information is protected by the Federal Confidentiality of Alcohol and Drug Abuse Patient Records regulations: The Federal rules restrict any use of the information to criminally investigate or prosecute any alcohol or drug abuse patient.[facility]In the event this information is protected by the Federal Confidentiality of Alcohol and Drug Abuse Patient Records regulations: The Federal rules restrict any use of the information to criminally investigate or prosecute any alcohol or drug abuse patient.[facility] CenterIn the event this information is protected by the Federal Confidentiality of Alcohol and Drug Abuse Patient Records regulations: The Federal rules restrict any use of the information to criminally investigate or prosecute any alcohol or drug abuse patient.[facility]In the event this information is protected by the Federal Confidentiality of Alcohol and Drug Abuse Patient Records regulations: The Federal rules restrict any use of the information to criminally investigate or prosecute any alcohol or drug abuse patient.[facility]In the event this information is protected by the Federal Confidentiality of Alcohol and Drug Abuse Patient Records regulations: The Federal rules restrict any use of the information to criminally investigate or prosecute any alcohol or drug abuse patient.[facility]In the event this information is protected by the Federal Confidentiality of Alcohol and Drug Abuse Patient Records regulations: The Federal rules restrict any use of the information to criminally investigate or prosecute any alcohol or drug abuse patient.[facility]In the event this information is protected by the Federal Confidentiality of Alcohol and Drug Abuse Patient Records regulations: The Federal rules restrict any use of the information to criminally investigate or prosecute any alcohol or drug abuse patient.[facility]In the event this information is protected by the Federal Confidentiality of Alcohol and Drug Abuse Patient Records regulations: The Federal rules restrict any use of the information to criminally investigate or prosecute any alcohol or drug abuse patient.[facility]In the event this information is protected by the Federal Confidentiality of Alcohol and Drug Abuse Patient Records regulations: The Federal rules restrict any use of the information to criminally investigate or prosecute any alcohol or drug abuse patient.[facility]In the event this information is protected by the Federal Confidentiality of Alcohol and Drug Abuse Patient Records regulations: The Federal rules restrict any use of the information to criminally investigate or prosecute any alcohol or drug abuse patient.[facility]In the event this information is protected by the Federal Confidentiality of Alcohol and Drug Abuse Patient Records regulations: The Federal rules restrict any use of the information to criminally investigate or prosecute any alcohol or drug abuse patient.[facility]In the event this information is protected by the Federal Confidentiality of Alcohol and Drug Abuse Patient Records regulations: The Federal rules restrict any use of the information to criminally investigate or prosecute any alcohol or drug abuse patient.[facility]In the event this information is protected by the Federal Confidentiality of Alcohol and Drug Abuse Patient Records regulations: The Federal rules restrict any use of the information to criminally investigate or prosecute any alcohol or drug abuse patient.[facility]In the event this information is protected by the Federal Confidentiality of Alcohol and Drug Abuse Patient Records regulations: The Federal rules restrict any use of the information to criminally investigate or prosecute any alcohol or drug abuse patient.[facility]In the event this information is protected by the Federal Confidentiality of Alcohol and Drug Abuse Patient Records regulations: The Federal rules restrict any use of the information to criminally investigate or prosecute any alcohol or drug abuse patient.[facility]In the event this information is protected by the Federal Confidentiality of Alcohol and Drug Abuse Patient Records regulations: The Federal rules restrict any use of the information to criminally investigate or prosecute any alcohol or drug abuse patient.[facility]In the event this information is protected by the Federal Confidentiality of Alcohol and Drug Abuse Patient Records regulations: The Federal rules restrict any use of the information to criminally investigate or prosecute any alcohol or drug abuse patient.[facility]In the event this information is protected by the Federal Confidentiality of Alcohol and Drug Abuse Patient Records regulations: The Federal rules restrict any use of the information to criminally investigate or prosecute any alcohol or drug abuse patient.[facility]In the event this information is protected by the Federal Confidentiality of Alcohol and Drug Abuse Patient Records regulations: The Federal rules restrict any use of the information to criminally investigate or prosecute any alcohol or drug abuse patient.[facility] CenterIn the event this information is protected by the Federal Confidentiality of Alcohol and Drug Abuse Patient Records regulations: The Federal rules restrict any use of the information to criminally investigate or prosecute any alcohol or drug abuse patient.[facility]In the event this information is protected by the Federal Confidentiality of Alcohol and Drug Abuse Patient Records regulations: The Federal rules restrict any use of the information to criminally investigate or prosecute any alcohol or drug abuse patient.[facility]In the event this information is protected by the Federal Confidentiality of Alcohol and Drug Abuse Patient Records regulations: The Federal rules restrict any use of the information to criminally investigate or prosecute any alcohol or drug abuse patient.[facility]In the event this information is protected by the Federal Confidentiality of Alcohol and Drug Abuse Patient Records regulations: The Federal rules restrict any use of the information to criminally investigate or prosecute any alcohol or drug abuse patient.[facility]In the event this information is protected by the Federal Confidentiality of Alcohol and Drug Abuse Patient Records regulations: The Federal rules restrict any use of the information to criminally investigate or prosecute any alcohol or drug abuse patient.[facility]In the event this information is protected by the Federal Confidentiality of Alcohol and Drug Abuse Patient Records regulations: The Federal rules restrict any use of the information to criminally investigate or prosecute any alcohol or drug abuse patient.[facility]In the event this information is protected by the Federal Confidentiality of Alcohol and Drug Abuse Patient Records regulations: The Federal rules restrict any use of the information to criminally investigate or prosecute any alcohol or drug abuse patient.[facility]In the event this information is protected by the Federal Confidentiality of Alcohol and Drug Abuse Patient Records regulations: The Federal rules restrict any use of the information to criminally investigate or prosecute any alcohol or drug abuse patient.[facility]In the event this information is protected by the Federal Confidentiality of Alcohol and Drug Abuse Patient Records regulations: The Federal rules restrict any use of the information to criminally investigate or prosecute any alcohol or drug abuse patient.[facility]In the event this information is protected by the Federal Confidentiality of Alcohol and Drug Abuse Patient Records regulations: The Federal rules restrict any use of the information to criminally investigate or prosecute any alcohol or drug abuse patient.[facility]In the event this information is protected by the Federal Confidentiality of Alcohol and Drug Abuse Patient Records regulations: The Federal rules restrict any use of the information to criminally investigate or prosecute any alcohol or drug abuse patient.[facility]In the event this information is protected by the Federal Confidentiality of Alcohol and Drug Abuse Patient Records regulations: The Federal rules restrict any use of the information to criminally investigate or prosecute any alcohol or drug abuse patient.[facility]In the event this information is protected by the Federal Confidentiality of Alcohol and Drug Abuse Patient Records regulations: The Federal rules restrict any use of the information to criminally investigate or prosecute any alcohol or drug abuse patient.[facility] CenterIn the event this information is protected by the Federal Confidentiality of Alcohol and Drug Abuse Patient Records regulations: The Federal rules restrict any use of the information to criminally investigate or prosecute any alcohol or drug abuse patient.[facility]In the event this information is protected by the Federal Confidentiality of Alcohol and Drug Abuse Patient Records regulations: The Federal rules restrict any use of the information to criminally investigate or prosecute any alcohol or drug abuse patient.[facility]In the event this information is protected by the Federal Confidentiality of Alcohol and Drug Abuse Patient Records regulations: The Federal rules restrict any use of the information to criminally investigate or prosecute any alcohol or drug abuse patient.[facility]In the event this information is protected by the Federal Confidentiality of Alcohol and Drug Abuse Patient Records regulations: The Federal rules restrict any use of the information to criminally investigate or prosecute any alcohol or drug abuse patient.[facility]In the event this information is protected by the Federal Confidentiality of Alcohol and Drug Abuse Patient Records regulations: The Federal rules restrict any use of the information to criminally investigate or prosecute any alcohol or drug abuse patient.[facility]In the event this information is protected by the Federal Confidentiality of Alcohol and Drug Abuse Patient Records regulations: The Federal rules restrict any use of the information to criminally investigate or prosecute any alcohol or drug abuse patient.[facility]In the event this information is protected by the Federal Confidentiality of Alcohol and Drug Abuse Patient Records regulations: The Federal rules restrict any use of the information to criminally investigate or prosecute any alcohol or drug abuse patient.[facility]In the event this information is protected by the Federal Confidentiality of Alcohol and Drug Abuse Patient Records regulations: The Federal rules restrict any use of the information to criminally investigate or prosecute any alcohol or drug abuse patient.[facility]In the event this information is protected by the Federal Confidentiality of Alcohol and Drug Abuse Patient Records regulations: The Federal rules restrict any use of the information to criminally investigate or prosecute any alcohol or drug abuse patient.[facility]In the event this information is protected by the Federal Confidentiality of Alcohol and Drug Abuse Patient Records regulations: The Federal rules restrict any use of the information to criminally investigate or prosecute any alcohol or drug abuse patient.[facility]In the event this information is protected by the Federal Confidentiality of Alcohol and Drug Abuse Patient Records regulations: The Federal rules restrict any use of the information to criminally investigate or prosecute any alcohol or drug abuse patient.[facility]In the event this information is protected by the Federal Confidentiality of Alcohol and Drug Abuse Patient Records regulations: The Federal rules restrict any use of the information to criminally investigate or prosecute any alcohol or drug abuse patient.[facility]In the event this information is protected by the Federal Confidentiality of Alcohol and Drug Abuse Patient Records regulations: The Federal rules restrict any use of the information to criminally investigate or prosecute any alcohol or drug abuse patient.[facility]In the event this information is protected by the Federal Confidentiality of Alcohol and Drug Abuse Patient Records regulations: The Federal rules restrict any use of the information to criminally investigate or prosecute any alcohol or drug abuse patient.[facility]In the event this information is protected by the Federal Confidentiality of Alcohol and Drug Abuse Patient Records regulations: The Federal rules restrict any use of the information to criminally investigate or prosecute any alcohol or drug abuse patient.[facility]In the event this information is protected by the Federal Confidentiality of Alcohol and Drug Abuse Patient Records regulations: The Federal rules restrict any use of the information to criminally investigate or prosecute any alcohol or drug abuse patient.[facility]In the event this information is protected by the Federal Confidentiality of Alcohol and Drug Abuse Patient Records regulations: The Federal rules restrict any use of the information to criminally investigate or prosecute any alcohol or drug abuse patient.[facility] CenterIn the event this information is protected by the Federal Confidentiality of Alcohol and Drug Abuse Patient Records regulations: The Federal rules restrict any use of the information to criminally investigate or prosecute any alcohol or drug abuse patient.[facility] Medical CenterIn the event this information is protected by the Federal Confidentiality of Alcohol and Drug Abuse Patient Records regulations: The Federal rules restrict any use of the information to criminally investigate or prosecute any alcohol or drug abuse patient.[facility] Center[facility] the event this information is protected by the Federal Confidentiality of Alcohol and Drug Abuse Patient Records regulations: The Federal rules restrict any use of the information to criminally investigate or prosecute any alcohol or drug abuse patient.[facility] CenterIn the event this information is protected by the Federal Confidentiality of Alcohol and Drug Abuse Patient Records regulations: The Federal rules restrict any use of the information to criminally investigate or prosecute any alcohol or drug abuse patient.[facility] CenterIn the event this information is protected by the Federal Confidentiality of Alcohol and Drug Abuse Patient Records regulations: The Federal rules restrict any use of the information to criminally investigate or prosecute any alcohol or drug abuse patient.[facility] CenterIn the event this information is protected by the Federal Confidentiality of Alcohol and Drug Abuse Patient Records regulations: The Federal rules restrict any use of the information to criminally investigate or prosecute any alcohol or drug abuse patient.[facility] CenterIn the event this information is protected by the Federal Confidentiality of Alcohol and Drug Abuse Patient Records regulations: The Federal rules restrict any use of the information to criminally investigate or prosecute any alcohol or drug abuse patient.[facility] CenterIn the event this information is protected by the Federal Confidentiality of Alcohol and Drug Abuse Patient Records regulations: The Federal rules restrict any use of the information to criminally investigate or prosecute any alcohol or drug abuse patient.[facility] CenterIn the event this information is protected by the Federal Confidentiality of Alcohol and Drug Abuse Patient Records regulations: The Federal rules restrict any use of the information to criminally investigate or prosecute any alcohol or drug abuse patient.[facility] CenterIn the event this information is protected by the Federal Confidentiality of Alcohol and Drug Abuse Patient Records regulations: The Federal rules restrict any use of the information to criminally investigate or prosecute any alcohol or drug abuse patient.[facility] CenterIn the event this information is protected by the Federal Confidentiality of Alcohol and Drug Abuse Patient Records regulations: The Federal rules restrict any use of the information to criminally investigate or prosecute any alcohol or drug abuse patient.[facility] CenterIn the event this information is protected by the Federal Confidentiality of Alcohol and Drug Abuse Patient Records regulations: The Federal rules restrict any use of the information to criminally investigate or prosecute any alcohol or drug abuse patient.[facility] CenterIn the event this information is protected by the Federal Confidentiality of Alcohol and Drug Abuse Patient Records regulations: The Federal rules restrict any use of the information to criminally investigate or prosecute any alcohol or drug abuse patient.[facility] CenterIn the event this information is protected by the Federal Confidentiality of Alcohol and Drug Abuse Patient Records regulations: The Federal rules restrict any use of the information to criminally investigate or prosecute any alcohol or drug abuse patient.[facility] CenterIn the event this information is protected by the Federal Confidentiality of Alcohol and Drug Abuse Patient Records regulations: The Federal rules restrict any use of the information to criminally investigate or prosecute any alcohol or drug abuse patient.[facility] CenterIn the event this information is protected by the Federal Confidentiality of Alcohol and Drug Abuse Patient Records regulations: The Federal rules restrict any use of the information to criminally investigate or prosecute any alcohol or drug abuse patient.[facility] CenterIn the event this information is protected by the Federal Confidentiality of Alcohol and Drug Abuse Patient Records regulations: The Federal rules restrict any use of the information to criminally investigate or prosecute any alcohol or drug abuse patient.[facility] CenterIn the event this information is protected by the Federal Confidentiality of Alcohol and Drug Abuse Patient Records regulations: The Federal rules restrict any use of the information to criminally investigate or prosecute any alcohol or drug abuse patient.[facility] CenterIn the event this information is protected by the Federal Confidentiality of Alcohol and Drug Abuse Patient Records regulations: The Federal rules restrict any use of the information to criminally investigate or prosecute any alcohol or drug abuse patient.[facility] CenterIn the event this information is protected by the Federal Confidentiality of Alcohol and Drug Abuse Patient Records regulations: The Federal rules restrict any use of the information to criminally investigate or prosecute any alcohol or drug abuse patient.[facility] Reason for Visit (unrecogniz ed section and content) Reason Comments Follow Up Specialty Diagnoses / Procedures Referred By Alena t Referred To Contact Psychiatry / ADULT PSYCHIATRY Diagnoses follow up Procedures VIDEO PSYC/PSYL EST Kang Buenrostro APRN.[employer] [address] [place] [address] Kang Buenrostro APRN.[employer] [address] [place] [address] Referral ID Status Reason Start Date Expiration Date V isits Requested Visits Authorized [id number] New Request 03/15/2024 06/13/2024 1 1 Reason Comments Follow Up Specialty Diagnoses / Procedures Referred By Contac t Referred To Contact Psychology / ADULT PSYCHOLOGY Diagnoses Follow up Procedures VIDEO PSYC/PSYL EST Tami Pastor PSYD [address] [facility] [address] [place] [address] Tami Pastor PSYD [address] [place] [address] Referral ID Status Reason Start Date Expiration Date V isits Requested Visits Authorized [id number] New Request 03/04/2024 06/02/2024 1 1 Specialty Diagnoses / Procedures Referred By Contac t Referred To Contact Psychiatry / ADULT PSYCHIATRY Diagnoses FOLLOW UP 4-6 weeks Procedures VIDEO PSYC/PSYL EST Kang Buenrostro, 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 [address] [place] [phone] Kang Buenrostro, PRIMARY SCHOOL TEACHER LIBRARIAN.[address] [address] Referral ID Status Reason Start Date Expiration Date V isits Requested Visits Authorized [id number] New Request 02/19/2024 05/19/2024 1 1 Specialty Diagnoses / Procedures Referred By Contac t Referred To Contact Psychology Diagnoses Generalized anxiety disorder Procedures CONSULT TO PSYCHOLOGY OFFICE/OUTPATIENT [facility] MDM 60-74 MINUTES Saul Knox PA-C [address] [place] [address] Referral ID Status Reason Start Date Expiration Date Visits Requested Visits Authorized [id number] Pending Review PCP Requested Referral 11/18/2022 11/18/2023 1 1 Specialty Diagnoses / Procedures Referred By Contac t Referred To Contact Psychiatry / ADULT PSYCHIATRY Diagnoses med check Procedures VIDEO PSYC/PSYL EST Kang Buenrostro, 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 [address] [place] [address] Kang Buenrostro, 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 [address] [place] [phone] Referral ID Status Reason Start Date Expiration Date V isits Requested Visits Authorized [id number] Pending Review 06/14/2022 09/12/2022 1 1 Reason Onset Date Comments Refill Request 08/08/2021 Specialty Diagnoses / Procedures Referred By Contac t Referred To Contact MR IMAGING Diagnoses S/P right knee surgery Procedures MRI KNEE WO IVCON RT MRI ANY JT LOWER EXTREM W/O CONTRAST Jaida Ferrari MD [address] [place] [address] Mr Imaging Referral ID Status Reason Start Date Expiration Date V isits Requested Visits Authorized [id number] Closed Auto-Generate d Referral 08/16/2021 09/15/2021 1 1 Reason Comments Schedule Surgery Reason Comments Anesthesia Consult Reason Comments Medication Check Discuss upping Lexap ro Reason Onset Date Comments Refill Request 12/17/2021 Reason Comments Appointment Reason Comments New Patient Specialty Diagnoses / Procedures Referred By Contac t Referred To Contact Neurology Diagnoses Mental status change resolved Procedures CONSULT TO NEUROLOGY OFFICE/OUTPATIENT [facility] 60-[place] [address] [place] [address] Referral ID Status Reason Start Date Expiration Date V isits Requested Visits Authorized [id number] Closed PCP Requested Referral 02/13/2022 01/30/2023 1 1 Reason Comments Future Appointment Reason Comments Patient Education Assessment Reason Comments Results Reason Comments TRIAGE Reason Comments New Patient Evaluation Specialty Diagnoses / Procedures Referred By Contac t Referred To Contact Diagnoses Generalized anxiety disorder Procedures CONSULT TO PSYCHIATRY OFFICE/OUTPATIENT [facility] 60-74 MINUTES Azra Canales APRN.[employer] [address] [place] [address] Referral ID Status Reason Start Date Expiration Date Visits Requested Visits Authorized [id number] Pending Review PCP Requested Referral 02/18/2023 1 1 Reason Comments New Patient Reason Onset Date Comments Refill Request 04/22/2022 Reason Comments No Show Reason Onset Date Comments Refill Request 06/18/2022 Reason Comments New Reason Comments Informed Consent IRB 12-1000 Reason Comments Medication Authorization Nayzilam Reason Onset Date Comments Transition Of Care 07/04/2022 Main M080B/ / Seizure-like activity Reason Comments Appointment Rescheduled Reason Comments Post-PMC Visit Epilepsy Reason Comments Refill Request Reason Onset Date Comments Refill Request 07/25/2022 Reason Comments Treatment Planning Reason Comments Schedule Surgery RIGHT temporal lobec mago Reason Comments Pre-Op Exam Procedure on 10/25/22 At [facility] [address] [place] [address] Having: CRANI W/ ELEVATION BONE FLAP FOR TEMPORAL LOBECTOMY W/O INTRAOPERATIVE EC by Alvaro Magana MD Reason Comments Pre-Op Visit Reason Comments Pre-Op Exam Reason Comments Results Positive nasal swab Reason Onset Date Comments Transition Of Care 10/30/2022 M080 EMU/Neur o Stepdown/ 10/28/22/ 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 Patient states she vomits bile daily. Not able to keep food down. Denies blood in vomit. Denies constipation/diarrhea. No abdominal pain, no fevers. Reason Comments Yearly Exam Specialty Diagnoses / Procedures Referred By Alena lyle Referred To Contact MR IMAGING Diagnoses Pain in right hip Procedures MRI HIP WO IVCON RT MRI ANY JT LOWER EXTREM W/O CONTRAST Jaida Ferrari MD [address] [place] [address] Mr Imaging [place] [address] Referral ID Status Reason Start Date Expiration Date V isits Requested Visits Authorized [id number] Closed Auto-Generate d Referral 05/24/2022 04/27/2023 1 1 Reason Comments Appointment Follow up MRI Reason Comments Radiology MRI Specialty Diagnoses / Procedures Referred By Alena lyle Referred To Contact MR IMAGING Diagnoses Other specified postprocedural states Procedures MRI BRAIN WO/W IVCON MRI BRAIN BRAIN STEM W/O W/CONTRAST MATERIAL Saul Knox PA-C [address] [facility] [place] [address] Mr Imaging [place] [address] Referral ID Status Reason Start Date Expiration Date V isits Requested Visits Authorized [id number] Closed Auto-Generate d Referral 05/23/2023 12/20/2023 1 1 Reason Comments lower abdominal pain onset times 1 month , random sharp pains,after having a BM will vomit or dry heave. denies any blood noted in stool, denies stool being black/sticky/tarry, does have frequent BMs approx 6-7 times daily. doesn't have to push Denies any dietary changes. does have celiac, so stools are different if eating something like bread but no correlation to the stomach pain/nausea. Reason Comments Vaginal Problem Reason Onset Date Comments Refill Request 12/09/2023 Reason Comments Follow Up Mixed obsessional th oughts Specialty Diagnoses / Procedures Referred By Contac t Referred To Contact Psychiatry / ADULT PSYCHIATRY Diagnoses follow up medication (been off medication since june) discussing restart Procedures VIDEO PSYC/PSYL EST Kang Buenrostro, 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 [address] [place] [address] Kang Buenrostro, 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 [address] [place] [address] Referral ID Status Reason Start Date Expiration Date V isits Requested Visits Authorized [id number] New Request 01/01/2024 03/31/2024 1 1 Reason Comments Established Patient Follow Up Epilepsy Reason Comments Anxiety Bipolar Disorder cannabis Specialty Diagnoses / Procedures Referred By Contac t Referred To Contact Psychology Diagnoses Generalized anxiety disorder Bipolar 2 disorder (HCC) 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) Procedures CONSULT TO PSYCHOLOGY OFFICE/OUTPATIENT [facility] 60 MINUTES Dionte Fu MD [address] [place] [address] Referral ID Status Reason Start Date Expiration Date Visits Requested Visits Authorized [id number] Pending Review PCP Requested Referral 10/24/2023 10/23/2024 1 1 Specialty Diagnoses / Procedures Referred By Contac t Referred To Contact MR IMAGING Diagnoses Generalized anxiety disorder Spells of decreased attentiveness Near syncope Procedures MRI BRAIN WO/W IVCON MRI BRAIN BRAIN STEM W/O W/CONTRAST MATERIAL Lv Hernandez DO [address] [place] [id number] Mr Imaging [id number] Referral ID Status Reason Start Date Expiration Date V isits Requested Visits Authorized [id number] Closed Auto-Generate d Referral 04/28/2021 04/27/2022 1 1 Reason Comments Radio Gen RMP Radiology Service Pr ogress NotePATIENT NAME: Fabian MenjivarMRN: [id number] OF SERVICE: February 28, 2022TIME: 4:05 PMPATIENT IDENTITY VERIFICATION COMPLETED USING TWO (2) IDENTIFIERS: Name and Date of confirmed by patient verbally.FALL SCREENING: Has the patient had 2 falls in the last year or 1 fall with injury or currently using an Ambulatory Assistive Device (Walker, Cane, Wheelchair, Crutches, etc.)? NoPATIENT GENDER DATA: Female. status: : No B Specialty Diagnoses / Procedures Referred By Contac t Referred To Contact XR IMAGING Diagnoses Pain Procedures XR HIP GENERAL 3V PELV/AP/LAT RIGHT RADEX HIP UNILATERAL WITH PELVIS 2-3 VIEWS Jaida Chang MD [address] [place] [address] Xr Imaging [place] [address] Referral ID Status Reason Start Date Expiration Date V isits Requested Visits Authorized [id number] Closed Auto-Generate d Referral 02/28/2022 03/29/2023 1 1 Reason Comments Radio Gen RMP Reason Comments Appointment Cancelled Reason Comments Well Woman Reason Comments Results STD Reason Comments Abdominal Pain Has been ongoing x1 month - vomiting throughout the day,mainly in the morning. Reason Onset Date Comments Refill Request 04/01/2024 Reason Onset Date Comments Refill Request 04/01/2024 Reason Onset Date Comments Refill Request 04/09/2024 Reason Comments Epilepsy Follow Up Reason Onset Date Comments Refill Request 04/26/2024 Reason Comments Anxiety Depression Specialty Diagnoses / Procedures Referred By Contac t Referred To Contact Psychology / ADULT PSYCHOLOGY Diagnoses Follow up Procedures VIDEO PSYC/PSYL EST Tami Pastor PSYD [address] [place] [address] Tami Pastor PSYD [address] [place] [id number] Referral ID Status Reason Start Date Expiration Date V isits Requested Visits Authorized [id number] New Request 04/29/2024 07/28/2024 1 1 Reason Onset Date Comments Refill Request 05/10/2024 Reason Onset Date Comments Refill Request 05/17/2024 Reason Comments Follow Up Mixed thoughts/Bipol ar Specialty Diagnoses / Procedures Referred By Contac t Referred To Contact Psychiatry / ADULT PSYCHIATRY Diagnoses 4-6 week follow up Procedures VIDEO PSYC/PSYL EST Kang Buenrostro, 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 [address] [place] [address] Kang Buenrostro, 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 [address] [place] [phone] Referral ID Status Reason Start Date Expiration Date V isits Requested Visits Authorized [id number] New Request 06/04/2024 09/02/2024 1 1 Reason Onset Date Comments Refill Request 06/11/2024 Specialty Diagnoses / Procedures Referred By Contac t Referred To Contact Psychiatry / ADULT PSYCHIATRY Diagnoses 4 week follow up Procedures VIDEO PSYC/PSYL EST Kang Buenrostro, 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 [address] [place] [address] Phone: tel: fax: Kang Buenrostro, 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 [address] [place] [address] Phone: tel: fax: Referral ID Status Reason Start Date Expiration Date V isits Requested Visits Authorized [id number] New Request 07/07/2024 10/05/2024 1 1 Reason Onset Date Comments Refill Request 07/20/2024 Reason Comments general Appointment? Specialty Diagnoses / Procedures Referred By Contac t Referred To Contact Psychiatry / ADULT PSYCHIATRY Diagnoses 4 WEEK FOLLOW UP Procedures EST LOU ADULT Kang Buenrostro, 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 [address] [place] [address] Phone: tel: fax: Kang Buenrostro, 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 [address] [place] [address] Phone: tel: fax: Referral ID Status Reason Start Date Expiration Date V isits Requested Visits Authorized [id number] New Request 08/04/2024 11/02/2024 1 1 Reason Onset Date Comments Refill Request 08/27/2024 Specialty Diagnoses / Procedures Referred By Contac t Referred To Contact Psychiatry / ADULT PSYCHIATRY Diagnoses PROVIDER ORDERED FOLLOW UP Procedures VIDEO PSYC/PSYL EST Kang Buenrostro, 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 [address] [place] [address] Phone: tel: fax: Kang Buenrostro, 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 [address] [place] [address] Phone: tel: fax: Referral ID Status Reason Start Date Expiration Date V isits Requested Visits Authorized [id number] New Request 09/01/2024 11/30/2024 1 1 Reason Onset Date Comments Refill Request 09/07/2024 Reason Comments Establish Care Specialty Diagnoses / Procedures Referred By Contac t Referred To Contact INTERNAL MEDICINE Diagnoses Does not have primary care provider Procedures ESTABLISH WITH PRIMARY CARE NEW PATIENT OFFICE/OUTPATIENT [facility] 60 MINUTES Halle Rios MD [address] [place] [address] Phone: tel: fax: [facility] [address] [place] [address] Phone: tel: fax: Referral ID Status Reason Start Date Expiration Date V isits Requested Visits Authorized [id number] Closed PCP Requested Referral 09/11/2024 09/11/2025 1 1 Reason Onset Date Comments Refill Request 10/03/2024 Reason Comments Established Patient Follow Up Reason Onset Date Comments Refill Request 11/04/2024 Specialty Diagnoses / Procedures Referred By Contac t Referred To Contact Psychiatry / ADULT PSYCHIATRY Diagnoses provider ordered follow up Procedures EST PSYC ADULT Kang Buenrostro, 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 [address] [place] [address] Phone: tel: fax: Kang Buenrostro, 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 [address] [place] [address] Phone: tel: fax: Referral ID Status Reason Start Date Expiration Date V isits Requested Visits Authorized [id number] New Request 11/08/2024 02/06/2025 1 1 Reason Onset Date Comments Refill Request 11/15/2024 Reason Onset Date Comments Refill Request 11/16/2024 Reason Comments Depression Anxiety Specialty Diagnoses / Procedures Referred By Alena lyle Referred To Contact Diagnoses Encounter for long-term (current) use of medications Procedures OFFICE/OUTPATIENT NEW HIGH MDM 60 MINUTES Kang Buenrostro, 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 [address] [place] [address] Phone: tel: fax: Referral ID Status Reason Start Date Expiration Date V isits Requested Visits Authorized [id number] Closed PCP Requested Referral 11/08/2024 11/08/2025 1 1 Care Teams (unrecognized sec tion and content) Home Organizer Relationship Specialty Start Date End Date Dionte Fu MD [address] [place], [place] [id number] PCP - General 08/23/02 Home Organizer Relationship Specialty Start Date End Date Dionte Fu MD [address] [place], [place] [id number] PCP - General 08/23/02 Home Organizer Relationship Specialty Start Date End Date Dionte Fu MD [address] [place], [place] [id number] PCP - General 08/23/02 Home Organizer Relationship Specialty Start Date End Date Dionte Fu MD [address] [place], [place] [id number]- PCP - General 08/23/02 Home Organizer Relationship Specialty Start Date End Date Dionte Fu MD [address] [facility] [address] PCP - General 08/23/02 Home Organizer Relationship Specialty Start Date End Date Dionte Fu MD [address] [facility] [place] [address] PCP - General 08/23/02 Home Organizer Relationship Specialty Start Date End Date Dionte Fu MD [address] [facility] [place] [place] [address] PCP - General 08/23/02 Home Organizer Relationship Specialty Start Date End Date Dionte Fu MD [address] [facility] [place] [address] PCP - General 08/23/02 Home Organizer Relationship Specialty Start Date End Date Dionte Fu MD [address] [facility] [place] [address] PCP - General 08/23/02 Home Organizer Relationship Specialty Start Date End Date Dionte Fu MD [address] [facility] [place] [address] PCP - General 08/23/02 Home Organizer Relationship Specialty Start Date End Date Dionte Fu MD [address] [facility] [place] [address] PCP - General 08/23/02 Home Organizer Relationship Specialty Start Date End Date Dionte Fu MD [address] [facility] [place] [address] PCP - General 08/23/02 Home Organizer Relationship Specialty Start Date End Date Dionte Fu MD [address] [facility] [place] [address] PCP - General 08/23/02 Home Organizer Relationship Specialty Start Date End Date Dionte Fu MD [address] [facility] [place] [place] [address] PCP - General 08/23/02 Home Organizer Relationship Specialty Start Date End Date Dionte Fu MD [address] [facility] [place] [address] PCP - General 08/23/02 Home Organizer Relationship Specialty Start Date End Date Dionte Fu MD [address] [facility] [place] [place] [address] PCP - General 08/23/02 Home Organizer Relationship Specialty Start Date End Date Dionte Fu MD [address] [facility] [place] [place] [address] PCP - General 08/23/02 Lv Hernandez DO [address] [place] [address] NI Referring Team Neurology 03/18/22 Home Organizer Relationship Specialty Start Date End Date Dionte Fu MD [address] [facility] [address] PCP - General 08/23/02 Lv Hernandez DO [address] [place] [address] NI Referring Team Neurology 03/18/22 Home Organizer Relationship Specialty Start Date End Date Dionte Fu MD [address] [facility] [place] [address] PCP - General 08/23/02 Lv Hernandez DO [address] [place] [address] NI Referring Team Neurology 03/18/22 Home Organizer Relationship Specialty Start Date End Date Dionte Fu MD [address] [place] [address] PCP - General 08/23/02 Lv Hernandez, DO [address] [place] [address] NI Referring Team Neurology 03/18/22 Home Organizer Relationship Specialty Start Date End Date Dionte Fu MD [address] [place] [address] PCP - General 08/23/02 Lv Hernandez, DO [address] [place] [address] NI Referring Team Neurology 03/18/22 Home Organizer Relationship Specialty Start Date End Date Dionte Fu MD [address] [place] [address] PCP - General 08/23/02 Lv Hernandez, DO [address] [place] [address] [place] Referring Team Neurology 03/18/22 Home Organizer Relationship Specialty Start Date End Date Dionte Fu MD [address] [place] [address] PCP - General 08/23/02 Lv Hernandez, DO [address] [place] [address] NI Referring Team Neurology 03/18/22 Home Organizer Relationship Specialty Start Date End Date Dionte Fu MD [address] [place] [address] PCP - General 08/23/02 Lv Hernandez, [address] [place] [address] NI Referring Team Neurology 03/18/22 Home Organizer Relationship Specialty Start Date End Date Dionte Fu MD [address] [place], [place] 037351 PCP - General 08/23/02 Lv Hernandez DO [address] [place] [address] NI Referring Team Neurology 03/18/22 Home Organizer Relationship Specialty Start Date End Date Dionte Fu MD [address] [place] [address] PCP - General 08/23/02 Lv Hernandez DO [address] [place] [address] NI Referring Team Neurology 03/18/22 Home Organizer Relationship Specialty Start Date End Date Dionte Fu MD [facility] [place], [place] 527721 PCP - General 08/23/02 Lv Hernandez, [address] [place] [address] NI Referring Team Neurology 03/18/22 Home Organizer Relationship Specialty Start Date End Date Dionte Fu MD [address] [place], [place] 298561 PCP - General 08/23/02 Lv Hernandez, [address] [place] [address] NI Referring Team Neurology 03/18/22 Home Organizer Relationship Specialty Start Date End Date Dionte Fu MD [address] [place] [address] PCP - General 08/23/02 Lv Hernandez DO [address] [place] [address] NI Referring Team Neurology 03/18/22 Home Organizer Relationship Specialty Start Date End Date Dionte Fu MD [address] [place], [place] 221081 PCP - General 08/23/02 Lv Hernandez DO [address] [place] [address] NI Referring Team Neurology 03/18/22 Home Organizer Relationship Specialty Start Date End Date Dionte Fu MD [address] [place], [place] [id number] PCP - General 08/23/02 Lv Hernandez DO [address] [place] [address] NI Referring Team Neurology 03/18/22 Kalie David, embosser operator Cotton Cleaner 07/04/22 08/03/22 Home Organizer Relationship Specialty Start Date End Date Dionte Fu MD [address] [place], [place] [id number] PCP - General 08/23/02 Lv Hernandez, [address] [place], [place] 7102695 NI Referring Team Neurology 03/18/22 Kalie David, embosser operator Cotton Cleaner 07/04/22 08/03/22 Home Organizer Relationship Specialty Start Date End Date Dionte Fu MD [address] [place], [place] [id number] PCP - General 08/23/02 Lv Hernandez DO [address] [place] [address] NI Referring Team Neurology 03/18/22 Home Organizer Relationship Specialty Start Date End Date Dionte Fu MD [address] [place] [address] PCP - General 08/23/02 Lv Hernandez DO [address] [place] [address] NI Referring Team Neurology 03/18/22 Kalie David, embosser operator Cotton Cleaner 07/04/22 08/03/22 Home Organizer Relationship Specialty Start Date End Date Dionte Fu MD [address] [place] [address] PCP - General 08/23/02 Lv Hernandez DO [address] [place] [address] [place] Referring Team Neurology 03/18/22 Kalie David, embosser operator Cotton Cleaner 07/04/22 08/03/22 Home Organizer Relationship Specialty Start Date End Date Dionte Fu MD [address] [place] [address] PCP - General 08/23/02 Lv Hernandez DO [address] [place] [address] NI Referring Team Neurology 03/18/22 Kalie David, embosser operator Cotton Cleaner 07/04/22 08/03/22 Home Organizer Relationship Specialty Start Date End Date Dionte Fu MD [address] [place] [address] PCP - General 08/23/02 Lv Hernandez DO [address] [place] [address] NI Referring Team Neurology 03/18/22 Kalie David, embosser operator Cotton Cleaner 07/04/22 08/03/22 Home Organizer Relationship Specialty Start Date End Date Dionte Fu MD [address] [place] [address] PCP - General 08/23/02 Lv Hernandez, DO [address] [place] [address] NI Referring Team Neurology 03/18/22 Home Organizer Relationship Specialty Start Date End Date Dionte Fu MD [address] [place] [address] PCP - General 08/23/02 Lv Hernandez, DO [address] [place] [address] NI Referring Team Neurology 03/18/22 Home Organizer Relationship Specialty Start Date End Date Dionte Fu MD [facility] [place] [address] PCP - General 08/23/02 Lv Hernandez, DO [address] [place] [address] NI Referring Team Neurology 03/18/22 Home Organizer Relationship Specialty Start Date End Date Dionte Fu MD [address] [place] [address] PCP - General 08/23/02 Lv Hernandez, DO [address] [place] [address] NI Referring Team Neurology 03/18/22 Home Organizer Relationship Specialty Start Date End Date Dionte Fu MD [address] [place] [address] PCP - General 08/23/02 Lv Hernandez, DO [address] [place] [address] NI Referring Team Neurology 03/18/22 Home Organizer Relationship Specialty Start Date End Date Dionte Fu MD [address] [place], [place] [id number] PCP - General 08/23/02 Lv Hernandez DO [address] [place], [place] 5390195 NI Referring Team Neurology 03/18/22 Home Organizer Relationship Specialty Start Date End Date Dionte Fu MD [address] [place], [place] 397781 PCP - General 08/23/02 Lv Hernandez DO [address] [place] [address] NI Referring Team Neurology 03/18/22 Kalie David, embosser operator Cotton Cleaner 10/30/22 11/29/22 Home Organizer Relationship Specialty Start Date End Date Dionte Fu MD [address] [place], [place] 202881 PCP - General 08/23/02 Lv Hernandez DO [address] [place] [address] NI Referring Team Neurology 03/18/22 Kalie David, embosser operator Cotton Cleaner 10/30/22 11/29/22 Home Organizer Relationship Specialty Start Date End Date Dionte Fu MD [address] [place], [place] 924641 PCP - General 08/23/02 Lv Hernandez DO [address] [place] [address] NI Referring Team Neurology 03/18/22 Kalie David, embosser operator Cotton Cleaner 10/30/22 11/29/22 Home Organizer Relationship Specialty Start Date End Date Dionte Fu MD [address] [place], [place] 584131 PCP - General 08/23/02 Lv Hernandez DO [address] [place] [address] NI Referring Team Neurology 03/18/22 Kalie David, embosser operator Cotton Cleaner 10/30/22 11/29/22 Team Status: Active Member Role Status Dates Dr. Dionte Fu MD Family Provider Active Dr. Dionte Fu MD Primary Care Provider Active Team Status: Inactive Member Role Status Dates Dr. Dionte Fu MD Primary Care Provider Active Dr. Power Mejias DO Emergency Provider Active Home Organizer Relationship Specialty Start Date End Date Dionte Fu MD [address] [place], [place] 879491 PCP - General 08/23/02 Lv Hernandez DO [address] [place] [address] NI Referring Team Neurology 03/18/22 Home Organizer Relationship Specialty Start Date End Date Dionte Fu MD [address] [place], [place] 281051 PCP - General 08/23/02 Lv Hernandez DO [address] [place] [address] NI Referring Team Neurology 03/18/22 Home Organizer Relationship Specialty Start Date End Date Dionte Fu MD [address] [place], [place] 007461 PCP - General 08/23/02 Lv Hernandez DO [address] [place] [address] NI Referring Team Neurology 03/18/22 Kalie David, embosser operator Cotton Cleaner 10/30/22 11/29/22 Home Organizer Relationship Specialty Start Date End Date Dionte Fu MD [address] [place], [place] 427961 PCP - General 08/23/02 Lv Hernandez DO [address] [place] [address] NI Referring Team Neurology 03/18/22 Home Organizer Relationship Specialty Start Date End Date Dionte Fu MD [address] [place], [place] 416021 PCP - General 08/23/02 Lv Hernandez DO [address] [place] [address] NI Referring Team Neurology 03/18/22 Home Organizer Relationship Specialty Start Date End Date Dionte Fu MD [address] [place], [place] 781841 PCP - General 08/23/02 Lv Hernandez DO [address] [place] [address] [place] Referring Team Neurology 03/18/22 Home Organizer Relationship Specialty Start Date End Date Dionte Fu MD [address] [place], [place] 512141 PCP - General 08/23/02 Lv Hernandez DO [address] [place] [address] NI Referring Team Neurology 03/18/22 Home Organizer Relationship Specialty Start Date End Date Dionte Fu MD [address] [place], [place] 114341 PCP - General 08/23/02 Lv Hernandez DO [address] [place] [address] NI Referring Team Neurology 03/18/22 Home Organizer Relationship Specialty Start Date End Date Dionte Fu MD [address] [place], [place] 18757691 PCP - General 08/23/02 Lv Hernandez DO [address] [place] [address] NI Referring Team Neurology 03/18/22 Home Organizer Relationship Specialty Start Date End Date Dionte Fu MD [address] [place], [place] 019861 PCP - General 08/23/02 Lv Hernandez DO [address] [place] [address] NI Referring Team Neurology 03/18/22 Home Organizer Relationship Specialty Start Date End Date Dionte Fu MD [address] [place], [place] 826171 PCP - General 08/23/02 Lv Hernandez DO [address] [place] [address] NI Referring Team Neurology 03/18/22 Home Organizer Relationship Specialty Start Date End Date Dionte Fu MD [address] [place] [address] PCP - General 08/23/02 Lv Hernandez DO [address] [place] [address] [place] Referring Team Neurology 03/18/22 Home Organizer Relationship Specialty Start Date End Date Dionte Fu MD [address] [place], [place] 352251 PCP - General 08/23/02 Lv Hernandez DO [address] [place] [address] NI Referring Team Neurology 03/18/22 Home Organizer Relationship Specialty Start Date End Date Dionte Fu MD [address] [place], [place] 168881 PCP - General 08/23/02 Lv Hernandez DO [address] [place] [address] NI Referring Team Neurology 03/18/22 Home Organizer Relationship Specialty Start Date End Date Dionte Fu MD [address] [place], [place] 160941 PCP - General 08/23/02 Lv Hernandez DO [address] [place] [address] NI Referring Team Neurology 03/18/22 Home Organizer Relationship Specialty Start Date End Date Dionte Fu MD [address] [place], [place] 923281 PCP - General 08/23/02 Lv Hernandez DO [address] [place] [address] NI Referring Team Neurology 03/18/22 Home Organizer Relationship Specialty Start Date End Date Dionte Fu MD [address] [place], [place] 191151 PCP - General 08/23/02 Lv Hernandez DO [address] [place] [address] NI Referring Team Neurology 03/18/22 Home Organizer Relationship Specialty Start Date End Date Dionte Fu MD [address] [place], [place] 043141 PCP - General 08/23/02 Lv Hernandez DO [address] [place] [address] NI Referring Team Neurology 03/18/22 Home Organizer Relationship Specialty Start Date End Date Dionte Fu MD [address] [place], [place] 934521 PCP - General 08/23/02 Lv Hernandez DO [address] [place] [address] NI Referring Team Neurology 03/18/22 Home Organizer Relationship Specialty Start Date End Date Dionte Fu MD [address] [place] [address] PCP - General 08/23/02 Lv Hernandez DO [address] [place] [address] NI Referring Team Neurology 03/18/22 Home Organizer Relationship Specialty Start Date End Date Dionte Fu MD [address] [place], [place] 543441 PCP - General 08/23/02 Lv Hernandez DO [address] [place] [address] NI Referring Team Neurology 03/18/22 Home Organizer Relationship Specialty Start Date End Date Dionte Fu MD [address] [place], [place] 515741 PCP - General 08/23/02 Lv Hernandez DO [address] [place] [address] NI Referring Team Neurology 03/18/22 Home Organizer Relationship Specialty Start Date End Date Dionte Fu MD [address] [place], [place] 217381 PCP - General 08/23/02 Home Organizer Relationship Specialty Start Date End Date Dionte Fu MD [address] [place], [place] 61367691 PCP - General 08/23/02 Home Organizer Relationship Specialty Start Date End Date Dionte Fu MD [address] [place], [place] 67369691 PCP - General 08/23/02 Lv Hernandez DO [address] [place] [address] NI Referring Team Neurology 03/18/22 Home Organizer Relationship Specialty Start Date End Date Dionte Fu MD [address] [place], [place] 473511 PCP - General 08/23/02 Lv Hernandez DO [address] [place] [address] NI Referring Team Neurology 03/18/22 Home Organizer Relationship Specialty Start Date End Date Dionte Fu MD [address] [place], [place] 779361 PCP - General 08/23/02 Lv Hernandez DO [address] [place] [address] NI Referring Team Neurology 03/18/22 Home Organizer Relationship Specialty Start Date End Date Dionte Fu MD [address] [place], [place] 049981 PCP - General 08/23/02 Lv Hernandez DO [address] [place] [address] NI Referring Team Neurology 03/18/22 Home Organizer Relationship Specialty Start Date End Date Lv Hernandez DO [address] [place] [address] NI Referring Team Neurology 03/18/22 Home Organizer Relationship Specialty Start Date End Date Lv Hernandez DO [address] [place] [address] [place] Referring Team Neurology 03/18/22 Home Organizer Relationship Specialty Start Date End Date Lv Hernandez DO [address] [place] [address] [place] Referring Team Neurology 03/18/22 Home Organizer Relationship Specialty Start Date End Date Lv Hernandez DO [address] [place] [address] NI Referring Team Neurology 03/18/22 Home Organizer Relationship Specialty Start Date End Date Lv Hernandez DO [address] [place] [address] NI Referring Team Neurology 03/18/22 Home Organizer Relationship Specialty Start Date End Date Lv Hernandez [address] [place] [address] NI Referring Team Neurology 03/18/22 Home Organizer Relationship Specialty Start Date End Date Dionte Fu MD [address] [place] [address] PCP - General 08/23/02 03/21/24 DavidRoxanneLv, [address] [place] [address] NI Referring Team Neurology 03/18/22 Home Organizer Relationship Specialty Start Date End Date HartleyRoxanneLv, [address] [place] [address] NI Referring Team Neurology 03/18/22 Home Organizer Relationship Specialty Start Date End Date Lv Hernandez DO [address] [place] [address] NI Referring Team Neurology 03/18/22 Home Organizer Relationship Specialty Start Date End Date Lv Hernandez DO [address] [place], [place] 9709795 NI Referring Team Neurology 03/18/22 Home Organizer Relationship Specialty Start Date End Date Lv Hernandez DO [address] [place], [place] 8067995 NI Referring Team Neurology 03/18/22 Home Organizer Relationship Specialty Start Date End Date Lv Hernandez DO [address] [place] [address] NI Referring Team Neurology 03/18/22 Home Organizer Relationship Specialty Start Date End Date Lv Hernandez DO [address] [place] [address] NI Referring Team Neurology 03/18/22 Home Organizer Relationship Specialty Start Date End Date Lv Hernandez DO [address] [place] [address] NI Referring Team Neurology 03/18/22 Home Organizer Relationship Specialty Start Date End Date Lv Hernandez DO [address] [place] [address] NI Referring Team Neurology 03/18/22 Home Organizer Relationship Specialty Start Date End Date Lv Hernandez DO [address] [place] [address] NI Referring Team Neurology 03/18/22 Home Organizer Relationship Specialty Start Date End Date Lv Hernandez DO [address] [place] [address] NI Referring Team Neurology 03/18/22 Home Organizer Relationship Specialty Start Date End Date Lv Hernandez DO [address] [place] [address] NI Referring Team Neurology 03/18/22 Home Organizer Relationship Specialty Start Date End Date Lv Heranndez DO [address] [place] [address] NI Referring Team Neurology 03/18/22 Home Organizer Relationship Specialty Start Date End Date Lv Hernandez DO [address] [place] [address] NI Referring Team Neurology 03/18/22 Home Organizer Relationship Specialty Start Date End Date Lv Hernandez DO [address] [place] [address] NI Referring Team Neurology 03/18/22 Home Organizer Relationship Specialty Start Date End Date Lv Hernandez DO [address] [place] [address] NI Referring Team Neurology 03/18/22 Home Organizer Relationship Specialty [place] [address] [place] [address] 384511 PCP - General Internal Medicine 09/23/24 Lv Hernandez DO [address] [place], [place] 61744[address] NI Referring Team Neurology 03/18/22 Home Organizer Relationship Specialty Start Date End Date Braulio Torncoso MD [address] [place], [place] 447881 PCP - General Internal Medicine 09/23/24 Lv Hernandez DO [address] [place] [address] NI Referring Team Neurology 03/18/22 Home Organizer Relationship Specialty Start Date End Date Braulio Troncoso MD [address] [place], [place] 823261 PCP - General Internal Medicine 09/23/24 Lv Hernandez DO [address] [place] [address] NI Referring Team Neurology 03/18/22 Home Organizer Relationship Specialty Start Date End Date Braulio Troncoso MD [address] [place], [place] 792931 PCP - General Internal Medicine 09/23/24 Lv Hernandez DO [address] [place], [place] 2644795 NI Referring Team Neurology 03/18/22 Kinga Tuttle APRN.VENEER MATCHER [address] [place], [place] [id number] Pharmacy Affairs Assistant Internal Medicine 10/01/24 Home Organizer Relationship Specialty Start Date End Date Braulio Troncoso MD [address] [place], [place] 392981 PCP - General Internal Medicine 09/23/24 Lv Hernandez DO [address] [place] [address] NI Referring Team Neurology 03/18/22 Home Organizer Relationship Specialty Start Date End Date Braulio Troncoso MD [address] [place], [place] 390951 PCP - General Internal Medicine 09/23/24 Lv Hernandez DO [address] [place] [address] NI Referring Team Neurology 03/18/22 Kinga Tuttle, 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 [address] [place] [address] Pharmacy Affairs Assistant Internal Medicine 10/01/24 Home Organizer Relationship Specialty Start Date End Date Braulio Troncoso MD [address] [place], [place] 565021 PCP - General Internal Medicine 09/23/24 Lv Hernandez DO [address] [place] [address] NI Referring Team Neurology 03/18/22 Kinga Tuttle, 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 [address] [place], [place] [id number] Pharmacy Affairs Assistant Internal Medicine 10/01/24 Home Organizer Relationship Specialty Start Date End Date Braulio Troncoso MD [address] [place], [place] 815341 PCP - General Internal Medicine 09/23/24 Lv Hernandez DO [address] [place] [address] NI Referring Team Neurology 03/18/22 Kinga Tuttle, 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 [address] [place], [place] 512771 Pharmacy Affairs Assistant Internal Medicine 10/01/24 Home Organizer Relationship Specialty Start Date End Date Braulio Troncoso MD [address] [place], [place] 205831 PCP - General Internal Medicine 09/23/24 Lv Hernandez DO [address] [place] [address] NI Referring Team Neurology 03/18/22 Kinga Tuttle, 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 [address] [place], [place] 234971 Pharmacy Affairs Assistant Internal Medicine 10/01/24 Home Organizer Relationship Specialty Start Date End Date Braulio Troncoso MD [address] [place], [place] [id number] PCP - General Internal Medicine 09/23/24 Lv Hernandez DO [address] [place] [address] NI Referring Team Neurology 03/18/22 Kinga Tuttle, 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 [address] [place], [place] 536461 [facility] Internal Medicine 10/01/24 Home Organizer Relationship Specialty Start Date End Date Braulio Troncoso MD [address] [place], [place] 675451 PCP - General Internal Medicine 09/23/24 Lv Hernandez DO [address] [place], [place] 9739695 NI Referring Team Neurology 03/18/22 Kinga Tuttle, 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 [address] [place], [place] 630291 [facility] Internal Medicine 10/01/24 Home Organizer Relationship Specialty Start Date End Date Braulio Troncoso MD [address] [place], [place] 563721 PCP - General Internal Medicine 09/23/24 Lv Hernandez DO [address] [place], [place] 7649395 NI Referring Team Neurology 03/18/22 Kinga Tuttle, 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 [address] [place], [place] 656831 [facility] Internal Medicine 10/01/24 INFORMATION SOURCE (unrecogn ized section and content) DATE CREATED AUTHOR 10/19/2021 [facility] DATE CREATED AUTHOR AUTHOR'S ORGANIZ ATION 12/03/2022 [facility] DATE CREATED AUTHOR AUTHOR'S ORGANIZ ATION 09/27/2023 [facility] DATE CREATED AUTHOR AUTHOR'S ORGANIZ ATION 12/28/2023 [facility] DATE CREATED AUTHOR AUTHOR'S ORGANIZ ATION 05/07/2024 [facility] DATE CREATED AUTHOR AUTHOR'S ORGANIZ ATION 05/25/2024 [facility] DATE CREATED AUTHOR AUTHOR'S ORGANIZ ATION 08/23/2024 [facility] DATE CREATED AUTHOR AUTHOR'S ORGANIZ ATION 02/01/2025 [facility] Goals (unrecognized section and content) Goals may be documented in a n alternate section FOR RECORDS PERTAINING TO PATIENTS WHO ARE OR HAVE BEEN ENROLLED IN A CHEMICAL DEPENDENCY/SUBSTANCEABUSE PROGRAM, SOME INFORMATION MAY BE OMITTED. This clinical summary was aggregated from multiple sources. Caution should be exercised in using it in the provision of clinical care. This summary normalizes information from multiple sources, and as a consequence, information in this document may materially change the coding, format and clinical context of patient data. In addition, data may be omitted in some cases. CLINICAL DECISIONS SHOULD BE BASED ON THE PRIMARY CLINICAL RECORDS. [employer] provides no warranty or guarantee of the accuracy or completeness of information in this document.
[2025-04-21 19:53] LABS: Color, Urine Yellow (Yellow); Glucose, Dipstick Normal (Normal); Ketone-Dipstick 15 mg/dl (Negative); Leukocyte Esterase-Dipstick 25 /ul (Negative); Nitrite-Dipstick Negative (Negative); Occult Blood-Urine 50 /ul (Negative); Protein-Dipstick 100 mg/dl (Negative); Specific Gravity, Urine 1.025 (1.002-1.030); Urine Bilirubin Dipstick Negative (Negative)
[2025-04-21 19:55] LABS: Hematocrit 46.0 % (37-47); Hemoglobin 15.1 g/dL (12.0-15.0); Mean Corp Hgb Conc 32.8 g/dL (32-36); Mean Corpuscular Volume 92.6 fL (81-99); Mean Platelet Vol. 9.7 fl (6.2-12.0); POSITIVE COUNT YES; POSITIVE DIFFERENTIAL YES; Platelet Count 581 K/mm3 (150-450); RBC Distribution Width CV 12.9 % (11.6-14.6); RBC Distribution Width SD 43.6 fl (35.1-43.9); Red Blood Count 4.97 M/mm3 (4.2-5.4)
[2025-04-21 20:10] LABS: White Blood Count 33.1 K/mm3 (4.4-11.0)
[2025-04-21 20:16] LABS: Internal QC Validated? YES +Cl - CLEAR BKGD; Pregnancy, Serum, hCG Quali. NEGATIVE Negative
[2025-04-21 20:20] LABS: AST(SGOT) 32 U/L (<=31); Alanine Aminotransfer ALT/SGPT 24 U/L (<=34); Albumin, Serum 5.1 g/dL (3.5-5.0); Alkaline Phosphatase 43 U/L (35-104); Anion Gap 33 (7-18); BUN 15 mg/dL (4-19); BUN/Creat Ratio 16.7 RATIO (10-20); Calcium,Total 10.4 mg/dL (7.6-11.0); Carbon Dioxide 10.6 mmol/L (20.0-29.0); Chloride 95 mmol/L (96-106); Estimated Creatinine Clearance 103.45 ml/min (50-250); Globulin 4.0 g/dL (2.2-4.2); Glucose 123 mg/dL (70-99); Potassium 3.3 mmol/L (3.5-5.1)
[2025-04-21 21:04] LABS: Squamous Epithelial Cells - UA 5-10 SEEN /hpf (5-10)
[2025-04-21 21:07] VITALS: BP 105/56; PULSE 96; RESP 16; TEMP 37.1; O2SAT 98
[2025-04-21 21:08] LABS: Red Blood Cells-Urine 5-10 SEEN /hpf (0-5)
[2025-04-21 22:03] LABS: Differential Indicated MANUAL DIFF
[2025-04-21 22:18] LABS: Total Cells Counted 100 (MANUAL DIFF)
[2025-04-21 22:28] LABS: Polychromasia RARE; Reactive Lymphocyte RARE
[2025-04-21] MEDS: levETIRAcetam IV 1,000 MG/100 ML BAG 400 MG IV (22:57)
[2025-04-21 23:00] VITALS: BP 125/76; PULSE 110; RESP 16; O2SAT 100
[2025-04-21 23:10] VITALS: BP 125/76; PULSE 104; RESP 23; TEMP 36.6; O2SAT 97
--- NOTE | 2025-04-21 23:22 | EX.ED.DYSGE1 ---
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 She is on Keppra and Lamictal at baseline. She is presenting today with breakthrough seizure activity. Patient states she had a seizure in bed this morning and then she had another seizure while at a gas station this afternoon. She states she felt her aura and the seizure coming on and then woke up on the ground of the gas station. She had called her mom before this happened. She does not think she hit her head. Denies any injuries. Is not sure what kind of movements she has when she has her seizure but states it involves her whole body. She does not remember the episode just waking up on the ground. She states she has been in her normal state of health recently. Notes that she did recently change her control prescription because she was having a lot of vaginal bleeding. Also reports that she has been compliant and has not missed any doses of her seizure medications. Denies any recent infectious symptoms or illnesses. No other complaints or concerns at this time [facility] Medical History Brain surgery within last 3 months Anxiety and depression Celiac disease Home Medications ?Medication ?Instructions ?Recorded ?Last Taken ?Type drospirenone 3 mg-ethinyl 1 tab PO DAILY 09/02/20 Unknown History estradiol 0.02 mg tablet (Kristal (28)) dicyclomine 10 mg capsule 10 mg PO DAILY PRN celiac 09/05/20 04/21/25 History aripiprazole 5 mg tablet 5 mg PO DAILY 11/27/22 04/21/25 History escitalopram oxalate 10 mg tablet 10 mg PO DAILY 11/27/22 04/21/25 History (Lexapro) fluoxetine 10 mg capsule 10 mg PO DAILY depression 11/27/22 Unknown History levetiracetam 750 mg tablet 750 mg PO BID #60 tabs 04/21/25 Unknown Rx (Keppra) Allergy/AdvReac Type Severity Reaction Status Date / Time No Known Allergies Allergy Verified 04/21/25 19:11 Social History Smoking Status: Never smoker ROS ROS ED Constitutional Constitutional ED: Denies chills or fever(s) Eyes Eyes: Denies blurry vision Respiratory/Chest Respiratory/Chest: Denies cough Gastrointestinal Gastrointestinal: Denies abdominal pain, nausea or vomiting Integumentary Denies rash Neurologic Neurologic: Reports other Details: Seizures ; Denies paresthesias or weakness EXAM Physical Exam Const Vital Signs: 04/21/25 19:08 04/21/25 21:07 04/21/25 23:00 Temperature 97.3 F L 98.7 F Temperature Source Oral Oral Pulse Rate 123 H 96 110 H Respiratory Rate 16 16 16 Blood Pressure 131/79 H 105/56 L 125/76 H Blood Pressure Mean 96 72 92 Pulse Ox 100 98 100 Oxygen Delivery Method Room Air Room Air Room Air 04/21/25 23:10 Temperature 98 F Temperature Source Pulse Rate 104 H Respiratory Rate 23 H Blood Pressure 125/76 H Blood Pressure Mean 92 Pulse Ox 97 Oxygen Delivery Method Positive well nourished and well developed General Appearance ED: well developed and NAD HEENT Reports TM's clear and moist mucous membranes HEENT Narrative: Ecchymosis noted to the lateral aspect of the left tongue consistent with biting her tongue. No dental injuries appreciated. No tongue laceration present. No active bleeding. Negative for trauma Tympanic Membrane ED: Yes TM's clear Eyes PERRL and EOMs intact bilaterally Neck supple Neck Narrative: No meningeal signs Chest Wall inspection of chest normal Resp normal respiratory effort and clear to auscultation bilaterally Cardio regular rhythm and no murmurs Rate: tachycardic GI normal to inspection, nondistended, normoactive bowel sounds and non-tender Extremity normal to inspection Neuro oriented x3 and CN's II-XII intact bilaterally Sensorium / Orientation: alert Psych mental status grossly normal Mood & Affect: anxious Skin no rashes or lesions noted and no wounds MDM MDM MDM Narrative Medical decision making narrative: Patient evaluated for reported breakthrough seizure activity. Patient upon arrival is tachycardic but otherwise acting appropriately. Does have a tongue abrasion consistent with having had a seizure. Reports this is her second seizure today but she is not in status epilepticus as she did return to her baseline and had time in between. Lab work consistent with someone who just had a seizure as she has significant leukocytosis, metabolic acidosis and a bicarb of 10.6. I suspect these are all transient changes associated with her seizure. Urinalysis does show signs of contamination with does show 10-25 white blood cells and 1+ bacteria so urine culture sent. She denies any urinary symptoms but has had recent heavy vaginal bleeding. No other IV source of infection is found. She has not a fever and does not have meningeal signs. Case is discussed with neurology at [facility], Dr. Montenegro. She consulted on the case and recommends 1 g load of IV Keppra in the emergency room and increasing her daily Keppra to 750 mg twice daily. They will arrange for outpatient follow-up with neurology team. Patient and father agreeable with this plan of care. Patient can return precautions. Patient actually lives up in [place] I did college and career counselor that as she received Ativan in the ER would recommend she stay the night at her parents house and [place] before driving back. Father is in agreement. Patient ambulates at emergency room with steady gait. Lab Data Labs: Laboratory Results - last 24 hr 04/21/25 04/21/25 19:00 19:28 WBC 33.1 H* RBC 4.97 Hgb 15.1 H Hct 46.0 MCV 92.6 MCH 30.4 MCHC 32.8 RDW Std Deviation 43.6 RDW Coeff of Tree 12.9 Plt Count 581 H MPV 9.7 Immature Gran % (Auto) Not Reportable Neut % (Auto) Not Reportable Lymph % (Auto) Not Reportable [place] % (Auto) Not Reportable Eos % (Auto) Not Reportable Baso % (Auto) Not Reportable Absolute Neuts (auto) 25.5 H Absolute Lymphs (auto) 5.62 H Total Counted 100 Neutrophils % (Manual) 77 H Lymphocytes % (Manual) 17 L Monocytes % (Manual) 5 Metamyelocytes % 1 Nucleated RBC % Not Reportable Diff Path Review May foll Reactive Lymphocytes RARE Polychromasia RARE Sodium 138 Potassium 3.3 L Chloride 95 L Carbon Dioxide 10.6 L Anion Gap 33 H BUN 15 Creatinine 0.89 Estim Creat Clear Calc 103.45 Est GFR (MDRD) Non-Af 93 BUN/Creatinine Ratio 16.7 Glucose 123 H Calcium 10.4 Total Bilirubin 0.41 AST 32 ALT 24 Alkaline Phosphatase 43 Total Protein 9.1 H Albumin 5.1 H Globulin 4.0 Albumin/Globulin Ratio 1.3 Serum , Qual NEGATIVE Urine Color Yellow Urine Clarity Sl. Cloudy Urine pH 5.0 Ur Specific [place] 1.025 Urine Protein 100 H Urine Glucose (UA) Normal Urine Ketones 15 H Urine Occult Blood 50 H Urine Nitrite Negative Urine Bilirubin Negative Urine Urobilinogen Normal Ur Leukocyte Esterase 25 H Urine RBC 5-10 SEEN Urine WBC 10-25 SEEN Ur Squamous Epith Cells 5-10 SEEN Urine Bacteria 1+ Urine Mucus 0 SEEN Discharge Plan Triage Chief Complaint: Seizure ED Provider: Lizz Fuentes Dx/Rx/DC Orders Clinical Impression: Breakthrough seizure, Tachycardia Instructions: ED Seizure, Recurrent (Adult) Prescriptions: New levetiracetam [Keppra] 750 mg tablet 750 mg PO BID Qty: 60 0RF No Action dicyclomine 10 mg capsule 10 mg PO DAILY PRN (Reason: celiac) drospirenone-ethinyl estradiol [Josyiel (28)] 3-0.02 mg Tablet 1 tab PO DAILY aripiprazole 5 mg tablet 5 mg PO DAILY Patient Comments: TAKE 1 TABLET BY MOUTH ONCE DAILY fluoxetine 10 mg capsule 10 mg PO DAILY Patient Comments: TAKE 1 CAPSULE BY MOUTH ONCE DAILY FOR 7 DAYS, THEN 2 CAPS ONCE DAILY escitalopram oxalate [Lexapro] 10 mg tablet 10 mg PO DAILY Primary Care Provider: Braulio Troncoso Referrals: Braulio Troncoso MD [Primary Care Provider, Internal Medicine] Activity Restrictions/Additional Instructions: You were seen for breakthrough seizures today. Your lab work did show abnormalities but this is consistent with someone who just had a seizure. I did speak with neurology at [facility] and they recommend increasing your Keppra dose to 750 mg twice a day. This has been sent to your pharmacy. In addition continue taking your Lamictal. If you develop fever, worsening symptoms or any other concerns please do not hesitate to return the emergency room. Print Language: [place] Disposition Disposition: Home, Self Care Discharge Date/Time: 04/21/25 23:30
[2025-04-22 15:00] LABS: Neutrophil-Band 3 % (0-5); Neutrophil-Segmented 65 % (47-70)
[2025-04-24 08:07] LABS: KEPPRA (LEVETIRACETAM) <2.0 ug/mL (10.0-40.0)
== END 2025-04-21 23:30 | disposition home or self-care (01) ==
PROVIDERS: Emergency Provider Emergency Medicine; PCP Internal Medicine; Visit Provider Emergency Medicine
DX: R56.9 Unspecified convulsions (principal); R00.0 Tachycardia, unspecified; S00.512A Abrasion of oral cavity, initial encounter; N93.9 Abnormal uterine and vaginal bleeding, unspecified; X58.XXXA Exposure to other specified factors, initial encounter
CPT/HCPCS: 80053; 80177; 81001; 82542; 84703; 85025; 87086; 87088; 93005; 96361; 96365; 96375; 99285; A4216